=== PATIENT | female | born 1930 | race Caucasian/White ===

== ENCOUNTER → 2016-11-16 | Outpatient (CLI) | payer MEDICARE ==
--- NOTE | 2016-11-17 08:10 | BD ---
EXAMINATION TYPE: MG DEXA axial skeleton. DATE OF EXAM: 11/16/2016 10:11 AM COMPARISON: 2014 CLINICAL HISTORY: post menopausal Height: 5'4 Weight: 172 FRAX RISK QUESTIONS: Alcohol (3 or more units per day): no Family History (Parent hip fracture): no Glucocorticoids (More than 3mos): no (Ex: prednisone, prednisolone, methylprednisolone, dexamethasone, and hydrocortisone). History of Fracture in Adulthood: no Secondary Osteoporosis: 1. Type 1 Diabetes: no 2. Hyperthyroidism: no 3. Menopause before 45: no 4. Malnutrition: no 5. Chronic liver disease: no Rheumatoid Arthritis: no Current Tobacco Use: no RISK FACTORS HISTORY OF: Active: Diet low in dairy products/other sources of calcium: Postmenopausal woman: MEDICATIONS: Additional Medications: blood pressure , copd Additional History: EXAM MEASUREMENTS: Bone mineral densitometry was performed using the [employer] System. Bone mineral density as measured about the Lumbar spine is: ----- L1-L4(G/cm2): 1.147 T Score Values are as follows: ----- L2: -0.3 ----- L3: -0.4 ----- L4: 0.7 ----- L1-L4: -0.3 Bone mineral density has: Decreased -1.2% since study of: 11/15/2014 Bone mineral density about the R hip (g/cm2): 0.888 Bone mineral density about the L hip (g/cm2): 0.817 T Score values are as follows: -----R Neck: -1.2 -----L Neck: -1.6 -----R Total: -0.8 -----L Total: -0.8 Bone mineral density has: Decreased -0.3% since study of: 11/15/2014 IMPRESSION: Osteopenia (T Score between -2.5 and -1 as noted by T score values : [place] Hips There is slightly increased risk of fracture and the patient may be considered for treatment. Re-Screen 2-5 years. NOTE: T-SCORE=SD OF THE YOUNG ADULT MEAN.
== END | disposition home or self-care (01) ==
LOC: RADBDWWP 09:53
PROVIDERS: ATTEND Family Medicine
DX: M85.852 Other specified disorders of bone density and structure, left thigh (principal); M85.851 Other specified disorders of bone density and structure, right thigh; Z78.0 Asymptomatic menopausal state
CPT/HCPCS: 77080

== ENCOUNTER → 2017-01-17 | Outpatient (CLI) | payer MEDICARE ==
--- NOTE | 2017-01-18 13:25 | MM ---
Reason for exam: screening (asymptomatic). Last mammogram was performed 1 year and 1 month ago. History: Patient is postmenopausal. Benign excisional biopsy of the left breast. Physical Findings: A clinical breast exam by your physician is recommended on an annual basis and results should be correlated with mammographic findings. MG 3D Screening Mammo W/Cad Bilateral CC and MLO view(s) were taken. Prior study comparison: December 10, 2015, bilateral MG 3d screening mammo w/cad. November 15, 2014, bilateral MG screening mammo w CAD. There are scattered fibroglandular densities. There is no discrete abnormality. No significant changes when compared with prior studies. ASSESSMENT: Negative, BI-RAD 1 RECOMMENDATION: Routine screening mammogram of both breasts in 1 year.
== END | disposition home or self-care (01) ==
LOC: RADMAMWWP 09:45
PROVIDERS: ATTEND Family Medicine
DX: Z12.31 Encounter for screening mammogram for malignant neoplasm of breast (principal)
CPT/HCPCS: 77063; G0202

== ENCOUNTER 2017-04-22 17:04 | Emergency (ER) | payer MEDICARE ==
[2017-04-22] MEDS ORDERED: SODIUM CHLORIDE 0.9% 1,000 ML IV STA (17:16)
--- NOTE | 2017-04-22 17:44 | ED ---
General Adult HPI - General Chief complaint: Dizziness Stated complaint: weakness Time Seen by Provider: 04/22/17 17:14 Source: patient, RN notes reviewed, old records reviewed Mode of arrival: wheelchair Limitations: no limitations - History of Present Illness Initial comments: This is an 86-year-old female to the ER for evaluation of the room spinning, vertigo. Symptoms into today. No significant nausea vomiting no history of stroke or chest pain, no history of heart attack. Patient does have high blood pressure across her. Nonsmoker. No recent travel history no sick Takes no trauma. Patient currently being treated for bronchitis - Related Data Home Medications Medication Instructions Recorded Confirmed Aspirin 81 mg PO DAILY 01/18/15 04/22/17 Cholecalciferol [Vitamin D3] 200 unit PO DAILY@1200 01/18/15 04/22/17 Metoprolol Tartrate [Lopressor] 100 mg PO DAILY 01/18/15 04/22/17 Tiotropium 18 Mcg/Puff [Spiriva] 1 cap INHALATION RT-DAILY 01/18/15 04/22/17 Vit C/E/Zn/Coppr/Lutein/Zeaxan 1 cap PO W/SUPPER 01/18/15 04/22/17 [Preservision Areds 2 Softgel] amLODIPine BESYLATE/BENAZEPRIL 1 cap PO DAILY 01/18/15 04/22/17 [Lotrel 10-40 mg Capsule] Albuterol Sulfate [Proair Hfa] 1 - 2 puff INHALATION RT-Q6H PRN 03/21/16 Vitamin E 1,000 unit PO DAILY 03/22/16 04/22/17 Azithromycin [Zithromax] 500 mg PO DAILY 04/22/17 04/22/17 predniSONE See Taper PO BID 04/22/17 04/22/17 Allergies Allergy/AdvReac Type Severity Reaction Status Date / Time shellfish derived [Shellfish] Allergy Unknown Verified 04/22/17 17:46 Sulfa (Sulfonamide Allergy Rash/Hives Verified 04/22/17 17:45 Antibiotics) Review of Systems ROS Statement: Those systems with pertinent positive or pertinent negative responses have been documented in the HPI. ROS Other: All systems not noted in ROS Statement are negative. Past Medical History Past Medical History: COPD, Hypertension History of Any Multi-Drug Resistant Organisms: None Reported Past Surgical History: Hernia Repair Past Anesthesia/Blood Transfusion Reactions: No Reported Reaction Past Psychological History: No Psychological Hx Reported Smoking Status: Former smoker Past Alcohol Use History: Occasional Past Drug Use History: None Reported - Past Family History Father Additional Family Medical History / Comment(s): heart issues Mother Family Medical History: Cancer Additional Family Medical History / Comment(s): Pancreatic CA General Exam - General Exam Comments Initial Comments: NIH of 0, finger-nose and heel costa are negative Limitations: no limitations General appearance: alert, in no apparent distress Head exam: Present: atraumatic, normocephalic, normal inspection Eye exam: Present: normal appearance, PERRL, EOMI. Absent: scleral icterus, conjunctival injection, periorbital swelling ENT exam: Present: normal exam, mucous membranes moist Neck exam: Present: normal inspection. Absent: tenderness, meningismus, lymphadenopathy Respiratory exam: Present: normal lung sounds bilaterally. Absent: respiratory distress, wheezes, rales, rhonchi, stridor Cardiovascular Exam: Present: regular rate, normal rhythm, normal heart sounds. Absent: systolic murmur, diastolic murmur, rubs, gallop, clicks GI/Abdominal exam: Present: soft, normal bowel sounds. Absent: distended, tenderness, guarding, rebound, rigid Extremities exam: Present: normal inspection, full ROM, normal capillary refill. Absent: tenderness, pedal edema, joint swelling, calf tenderness Back exam: Present: normal inspection Neurological exam: Present: alert, oriented X3, CN II-XII intact Psychiatric exam: Present: normal affect, normal mood Skin exam: Present: warm, dry, intact, normal color. Absent: rash Course Vital Signs 04/22/17 04/22/17 17:05 18:14 Temperature 97.9 F Pulse Rate 70 65 Respiratory 20 16 Rate Blood Pressure 152/103 165/75 O2 Sat by Pulse 96 97 Oximetry - Reevaluation(s) Reevaluation #1: 04/22/17 18:25 Patient is able to ambulate and stand without difficulty EKG Findings - EKG Comments: EKG Findings:: EKG shows normal sinus rhythm rate of 70, IA 192, QRS 86, QTC 434 Medical Decision Making - Medical Decision Making 86 female in the ER with vertiginous symptoms, CT is negative. Patient is able to ambulate without ataxia. Patient will be discharged home to continue outpatient treatment for bronchitis - Lab Data Result diagrams: 04/22/17 17:23 04/22/17 17:23 Lab Results 04/22/17 04/22/17 04/22/17 Range/Units 17:23 17:23 17:23 WBC 10.0 (3.8-10.6) k/uL RBC 5.18 (3.80-5.40) m/uL Hgb 15.4 (11.4-16.0) gm/dL Hct 46.1 H (34.0-46.0) % MCV 89.0 (80.0-100.0) fL MCH 29.7 (25.0-35.0) pg MCHC 33.4 (31.0-37.0) g/dL RDW 13.6 (11.5-15.5) % Plt Count 284 (150-450) k/uL Neutrophils % 80 % Lymphocytes % 15 % Monocytes % 4 % Eosinophils % 1 % Basophils % 0 % Neutrophils # 7.9 H (1.3-7.7) k/uL Lymphocytes # 1.5 (1.0-4.8) k/uL Monocytes # 0.4 (0-1.0) k/uL Eosinophils # 0.1 (0-0.7) k/uL Basophils # 0.0 (0-0.2) k/uL PT (9.0-12.0) sec INR (<1.2) APTT (22.0-30.0) sec Sodium 133 L (137-145) mmol/L Potassium 4.6 (3.5-5.1) mmol/L Chloride 100 (98-107) mmol/L Carbon Dioxide 24 (22-30) mmol/L Anion Gap 9 mmol/L BUN 25 H (7-17) mg/dL Creatinine 0.80 (0.52-1.04) mg/dL Est GFR (MDRD) Af Amer >60 (>60 ml/min/1.73 sqM) Est GFR (MDRD) Non-Af >60 (>60 ml/min/1.73 sqM) Glucose 112 H (74-99) mg/dL Plasma Lactic Acid Lion 1.3 (0.7-2.0) mmol/L Calcium 9.2 (8.4-10.2) mg/dL Phosphorus 3.6 (2.5-4.5) mg/dL Magnesium 2.3 (1.6-2.3) mg/dL Total Bilirubin 0.5 (0.2-1.3) mg/dL AST 17 (14-36) U/L ALT 24 (9-52) U/L Alkaline Phosphatase 70 (38-126) U/L Total Protein 6.9 (6.3-8.2) g/dL Albumin 4.2 (3.5-5.0) g/dL Urine Color Urine Appearance (Clear) Urine pH (5.0-8.0) Ur Specific [place] (1.001-1.035) Urine Protein (Negative) Urine Glucose (UA) (Negative) Urine Ketones (Negative) Urine Blood (Negative) Urine Nitrite (Negative) Urine Bilirubin (Negative) Urine Urobilinogen (<2.0) mg/dL Ur Leukocyte Esterase (Negative) 04/22/17 04/22/17 Range/Units 17:23 17:23 WBC (3.8-10.6) k/uL RBC (3.80-5.40) m/uL Hgb (11.4-16.0) gm/dL Hct (34.0-46.0) % MCV (80.0-100.0) fL MCH (25.0-35.0) pg MCHC (31.0-37.0) g/dL RDW (11.5-15.5) % Plt Count (150-450) k/uL Neutrophils % % Lymphocytes % % Monocytes % % Eosinophils % % Basophils % % Neutrophils # (1.3-7.7) k/uL Lymphocytes # (1.0-4.8) k/uL Monocytes # (0-1.0) k/uL Eosinophils # (0-0.7) k/uL Basophils # (0-0.2) k/uL PT 10.3 (9.0-12.0) sec INR 1.0 (<1.2) APTT 28.5 (22.0-30.0) sec Sodium (137-145) mmol/L Potassium (3.5-5.1) mmol/L Chloride (98-107) mmol/L Carbon Dioxide (22-30) mmol/L Anion Gap mmol/L BUN (7-17) mg/dL Creatinine (0.52-1.04) mg/dL Est GFR (MDRD) Af Amer (>60 ml/min/1.73 sqM) Est GFR (MDRD) Non-Af (>60 ml/min/1.73 sqM) Glucose (74-99) mg/dL Plasma Lactic Acid Lion (0.7-2.0) mmol/L Calcium (8.4-10.2) mg/dL Phosphorus (2.5-4.5) mg/dL Magnesium (1.6-2.3) mg/dL Total Bilirubin (0.2-1.3) mg/dL AST (14-36) U/L ALT (9-52) U/L Alkaline Phosphatase (38-126) U/L Total Protein (6.3-8.2) g/dL Albumin (3.5-5.0) g/dL Urine Color Yellow Urine Appearance Clear (Clear) Urine pH 6.0 (5.0-8.0) Ur Specific [place] 1.010 (1.001-1.035) Urine Protein Negative (Negative) Urine Glucose (UA) Negative (Negative) Urine Ketones Negative (Negative) Urine Blood Negative (Negative) Urine Nitrite Negative (Negative) Urine Bilirubin Negative (Negative) Urine Urobilinogen <2.0 (<2.0) mg/dL Ur Leukocyte Esterase Negative (Negative) - Radiology Data Radiology results: report reviewed (CT brain is negative for acute disease), image reviewed Disposition Clinical Impression: Benign paroxysmal positional vertigo Disposition: HOME SELF-CARE Condition: Good Instructions: Vertigo (ED) Referrals: Diego Soriano MD [Primary Care Provider] - 1-2 days
[2017-04-22 18:04] LABS: Basophils % (A) 0 %; CH 30.2; CHCM 34.1; Eosinophils # (A) 0.1 k/uL (0-0.7); Eosinophils % (A) 1 %; HCT 46.1 % (34.0-46.0); HDW 2.62; HGB 15.4 gm/dL (11.4-16.0); Luc # (Auto) 0.04; Luc % (Auto) 0; Lymphocytes # (A) 1.5 k/uL (1.0-4.8); Lymphocytes % (A) 15 %; MCH 29.7 pg (25.0-35.0); MCHC 33.4 g/dL (31.0-37.0); Mean Platelet Volume 6.3; Monocytes # (A) 0.4 k/uL (0-1.0); Monocytes % (A) 4 %; Neutrophils # (A) 7.9 k/uL (1.3-7.7); Neutrophils % (A) 80 %; RBC 5.18 m/uL (3.80-5.40); RDW 13.6 % (11.5-15.5); WBC (Perox) 9.68
[2017-04-22 18:05] LABS: Appearance,Urine Clear (Clear); Bilirubin,Urine Negative (Negative); Glucose,Urine (UA) Negative (Negative); Ketones,Urine Negative (Negative); Leukocyte Esterase,Urine Negative (Negative); Nitrite,Urine Negative (Negative); Protein,Urine Negative (Negative); UA Billing (MACRO vs. MICRO) CHEM; Urobilinogen,Urine <2.0 mg/dL (<2.0)
[2017-04-22 18:10] LABS: Partial Thromboplastin Time 28.5 sec (22.0-30.0); Prothrombin Time 10.3 sec (9.0-12.0)
[2017-04-22 18:11] LABS: ALT 24 U/L (9-52); AST 17 U/L (14-36); Alkaline Phosphatase 70 U/L (38-126); Anion Gap 9 mmol/L; Blood Urea Nitrogen 25 mg/dL (7-17); Calcium 9.2 mg/dL (8.4-10.2); Carbon Dioxide 24 mmol/L (22-30); Chloride 100 mmol/L (98-107); Glucose 112 mg/dL (74-99); Magnesium 2.3 mg/dL (1.6-2.3); Non-African American GFR(MDRD) >60 (>60 ml/min/1.73 sqM); Phosphorous 3.6 mg/dL (2.5-4.5); Potassium 4.6 mmol/L (3.5-5.1); Sodium 133 mmol/L (137-145); Total Bilirubin 0.5 mg/dL (0.2-1.3); Total Protein 6.9 g/dL (6.3-8.2)
[2017-04-22 18:21] LABS: Creatine Kinase 55 U/L (30-135)
[2017-04-22 18:34] LABS: Creatine Kinase MB 1.5 ng/mL (0.0-2.4); Troponin I <0.012 ng/mL (0.000-0.034)
--- NOTE | 2017-04-22 19:35 | CT ---
EXAMINATION TYPE: CT brain wo con DATE OF EXAM: 04/22/2017 COMPARISON: NONE HISTORY: Dizziness and weakness CT DLP: 1012.7 mGycm Automated exposure control for dose reduction was used. FINDINGS: There is cerebral cortical atrophy. There is patchy hypodensity in the periventricular white matter. There is no mass effect nor midline shift. There is no sign of intracranial hemorrhage. Calvarium is intact. IMPRESSION: CEREBRAL ATROPHY AND CHRONIC SMALL VESSEL ISCHEMIA. NO ACUTE INTRACRANIAL ABNORMALITY.
[2017-04-22 20:06] VITALS: BP 160/72; PULSE 66; RESP 18; TEMP 97
== END 2017-04-22 20:05 | disposition home or self-care (01) ==
LOC: EC 17:04
DX: H81.10 Benign paroxysmal vertigo, unspecified ear (principal); J44.9 Chronic obstructive pulmonary disease, unspecified; I10 Essential (primary) hypertension; Z87.891 Personal history of nicotine dependence; Z79.82 Long term (current) use of aspirin; Z79.899 Other long term (current) drug therapy; Z79.52 Long term (current) use of systemic steroids; Z88.2 Allergy status to sulfonamides; Z91.013 Allergy to seafood
CPT/HCPCS: 36415; 70450; 80053; 81003; 82550; 82553; 83605; 83735; 84100; 84443; 84484; 85025; 85610; 85730; 87086; 93005; 96360; 99285

== ENCOUNTER 2017-10-23 16:46 | Inpatient (IN) | payer MEDICARE ==
[2017-10-23] MEDS ORDERED: IPRATROPIUM-ALBUTEROL 3 ML NEB INHALATION STA (17:14)
--- NOTE | 2017-10-23 17:22 | ED ---
General Adult HPI - General Chief complaint: Shortness of Breath Stated complaint: Sob Time Seen by Provider: 10/23/17 16:50 Source: patient, RN notes reviewed Mode of arrival: wheelchair Limitations: no limitations - History of Present Illness Initial comments: This is an 87-year-old female presents emergency department with shortness of breath. Patient states she's been an ongoing sosa with shortness of breath. Patient states in the past she's been diagnosed with COPD as well as congestive heart failure. Patient states 2 weeks ago she came home from [place] and she continues to have shortness of breath. Patient states yesterday and today has gotten considerably worse and her fatigue is considerably worse. Patient denies any chest pain or palpitations. Patient denies any recent fevers chills or cough. Patient denies any lightheadedness dizziness or near syncopal episode. Patient denies any headache patient denies numbness or weakness patient denies any abdominal pain. Patient denies any nausea vomiting diarrhea. Patient denies any calf pain or leg swelling. - Related Data Home Medications Medication Instructions Recorded Confirmed Aspirin 81 mg PO DAILY 01/18/15 10/23/17 Cholecalciferol [Vitamin D3] 200 unit PO DAILY@1200 01/18/15 10/23/17 Vit C/E/Zn/Coppr/Lutein/Zeaxan 1 cap PO BID 01/18/15 10/23/17 [Preservision Areds 2 Softgel] Albuterol Sulfate [Proair Hfa] 1 - 2 puff INHALATION RT-Q4H PRN 03/21/16 Budesonide/Formoterol Fumarate 2 puff INHALATION RT-BID 08/07/17 10/23/17 [Symbicort 160-4.5 Mcg Inhaler] Ipratropium-Albuterol Nebulize 3 ml INHALATION RT-QID 08/07/17 10/23/17 [Duoneb 0.5 mg-3 mg/3 ml Soln] Digoxin [Lanoxin] 125 mcg PO DIRECTED 10/23/17 10/23/17 Famotidine [Pepcid] 20 mg PO BID 10/23/17 10/23/17 Levofloxacin [Levaquin] 750 mg PO SUTUTH 10/23/17 10/23/17 Lisinopril 20 mg PO DAILY 10/23/17 10/23/17 Metoprolol Tartrate [Lopressor] 25 mg PO BID 10/23/17 10/23/17 Potassium Chloride [Klor-Con 10] 10 meq PO BID 10/23/17 10/23/17 Previous Rx's Medication Instructions Recorded Apixaban [Eliquis] 2.5 mg PO BID tablet 08/11/17 Diltiazem Cd [Cardizem CD] 240 mg PO DAILY #30 cap.er.24h 08/11/17 Furosemide [Lasix] 20 mg PO DAILY #30 tab 08/11/17 Allergies Allergy/AdvReac Type Severity Reaction Status Date / Time shellfish derived [Shellfish] Allergy Unknown Verified 10/23/17 18:28 Sulfa (Sulfonamide Allergy Rash/Hives Verified 10/23/17 18:28 Antibiotics) Review of Systems ROS Statement: Those systems with pertinent positive or pertinent negative responses have been documented in the HPI. ROS Other: All systems not noted in ROS Statement are negative. Past Medical History Past Medical History: Atrial Fibrillation, COPD, Hypertension History of Any Multi-Drug Resistant Organisms: None Reported Past Surgical History: Hernia Repair Past Anesthesia/Blood Transfusion Reactions: No Reported Reaction Past Psychological History: No Psychological Hx Reported Smoking Status: Former smoker Past Alcohol Use History: Occasional Past Drug Use History: None Reported - Past Family History Father Additional Family Medical History / Comment(s): heart issues Mother Family Medical History: Cancer Additional Family Medical History / Comment(s): Pancreatic CA General Exam - General Exam Comments Initial Comments: GENERAL: Patient is well-developed and well-nourished. Patient is nontoxic and well- hydrated and is in mild distress. ENT: Neck is soft and supple. No significant lymphadenopathy is noted. Oropharynx is clear. Moist mucous membranes. Neck has full range of motion without eliciting any pain. EYES: The sclera were anicteric and conjunctiva were pink and moist. Extraocular movements were intact and pupils were equal round and reactive to light. Eyelids were unremarkable. PULMONARpatient has some crackles bilateral bases and some slight expiratory wheezing on the left. CARDIOVASCULAR: There is a regular rate and rhythm without any murmurs gallops or rubs. ABDOMEN: Soft and nontender with normal bowel sounds. No palpable organomegaly was noted. There is no palpable pulsatile mass. SKIN: Skin is clear with no lesions or rashes and otherwise unremarkable. NEUROLOGIC: Patient is alert and oriented x3. Cranial nerves II through XII are grossly intact. Motor and sensory are also intact. Normal speech, volume and content. Symmetrical smile. MUSCULOSKELETAL: Normal extremities with adequate strength and full range of motion. No lower extremity swelling or edema. No calf tenderness. LYMPHATICS: No significant lymphadenopathy is noted PSYCHIATRIC: Normal psychiatric evaluation. Normal interpersonal interactions appears functionally intact in deals appropriately with others. No signs of depression. No signs of anxiety. Limitations: no limitations Course Vital Signs 10/23/17 10/23/17 10/23/17 16:50 17:08 17:30 Temperature 98.2 F Pulse Rate 72 66 Respiratory 20 20 20 Rate Blood Pressure 147/66 126/58 O2 Sat by Pulse 92 L 98 Oximetry 10/23/17 10/23/17 10/23/17 17:39 17:46 18:48 Temperature Pulse Rate 62 63 65 Respiratory 20 18 22 Rate Blood Pressure 115/56 O2 Sat by Pulse 98 Oximetry Medical Decision Making - Medical Decision Making EKG shows normal sinus rhythm at 64 bpm GA interval is 192 QRS is 80 QT interval 426 QTC is 439. Patient's EKG shows no ST segment elevation or depression or T wave abnormalities are noted. Chest x-ray shows no acute abnormality. Patient received albuterol treatment and steroids but was unable to even get out of bed before being winded. Patient states she didn't feel as though she could go home at this time. I spoke with Dr. Hughes he agreed to admit the patient admitted the patient I wrote admitting orders. I consult pulmonology and I continued breathing treatments and steroids on the floor. - Lab Data Result diagrams: 10/23/17 17:05 10/23/17 17:05 Lab Results 10/23/17 10/23/17 10/23/17 Range/Units 17:05 17:05 17:05 WBC 8.4 (3.8-10.6) k/uL RBC 5.06 (3.80-5.40) m/uL Hgb 14.6 (11.4-16.0) gm/dL Hct 42.9 (34.0-46.0) % MCV 84.8 (80.0-100.0) fL MCH 28.8 (25.0-35.0) pg MCHC 33.9 (31.0-37.0) g/dL RDW 14.4 (11.5-15.5) % Plt Count 252 (150-450) k/uL Neutrophils % 50 % Lymphocytes % 38 % Monocytes % 7 % Eosinophils % 4 % Basophils % 0 % Neutrophils # 4.2 (1.3-7.7) k/uL Lymphocytes # 3.2 (1.0-4.8) k/uL Monocytes # 0.6 (0-1.0) k/uL Eosinophils # 0.3 (0-0.7) k/uL Basophils # 0.0 (0-0.2) k/uL PT (9.0-12.0) sec INR (<1.2) APTT (22.0-30.0) sec D-Dimer (<0.60) mg/L FEU Sodium 138 (137-145) mmol/L Potassium 3.9 (3.5-5.1) mmol/L Chloride 101 (98-107) mmol/L Carbon Dioxide 23 (22-30) mmol/L Anion Gap 14 mmol/L BUN 8 (7-17) mg/dL Creatinine 0.81 (0.52-1.04) mg/dL Est GFR (CKD-EPI)AfAm 77 (>60 ml/min/1.73 sqM) Est GFR (CKD-EPI)NonAf 66 (>60 ml/min/1.73 sqM) Glucose 133 H (74-99) mg/dL Calcium 8.9 (8.4-10.2) mg/dL Magnesium 1.8 (1.6-2.3) mg/dL Total Bilirubin 0.6 (0.2-1.3) mg/dL AST 30 (14-36) U/L ALT 54 H (9-52) U/L Alkaline Phosphatase 57 (38-126) U/L Total Creatine Kinase 45 (30-135) U/L CK-MB (CK-2) 1.1 (0.0-2.4) ng/mL CK-MB (CK-2) Rel Index 2.4 Troponin I <0.012 (0.000-0.034) ng/mL NT-Pro-B Natriuret Pep pg/mL Total Protein 5.6 L (6.3-8.2) g/dL Albumin 3.7 (3.5-5.0) g/dL 10/23/17 10/23/17 10/23/17 Range/Units 17:05 17:05 17:05 WBC (3.8-10.6) k/uL RBC (3.80-5.40) m/uL Hgb (11.4-16.0) gm/dL Hct (34.0-46.0) % MCV (80.0-100.0) fL MCH (25.0-35.0) pg MCHC (31.0-37.0) g/dL RDW (11.5-15.5) % Plt Count (150-450) k/uL Neutrophils % % Lymphocytes % % Monocytes % % Eosinophils % % Basophils % % Neutrophils # (1.3-7.7) k/uL Lymphocytes # (1.0-4.8) k/uL Monocytes # (0-1.0) k/uL Eosinophils # (0-0.7) k/uL Basophils # (0-0.2) k/uL PT 10.4 (9.0-12.0) sec INR 1.1 (<1.2) APTT 26.9 (22.0-30.0) sec D-Dimer 0.38 (<0.60) mg/L FEU Sodium (137-145) mmol/L Potassium (3.5-5.1) mmol/L Chloride (98-107) mmol/L Carbon Dioxide (22-30) mmol/L Anion Gap mmol/L BUN (7-17) mg/dL Creatinine (0.52-1.04) mg/dL Est GFR (CKD-EPI)AfAm (>60 ml/min/1.73 sqM) Est GFR (CKD-EPI)NonAf (>60 ml/min/1.73 sqM) Glucose (74-99) mg/dL Calcium (8.4-10.2) mg/dL Magnesium (1.6-2.3) mg/dL Total Bilirubin (0.2-1.3) mg/dL AST (14-36) U/L ALT (9-52) U/L Alkaline Phosphatase (38-126) U/L Total Creatine Kinase (30-135) U/L CK-MB (CK-2) (0.0-2.4) ng/mL CK-MB (CK-2) Rel Index Troponin I (0.000-0.034) ng/mL NT-Pro-B Natriuret Pep 1070 pg/mL Total Protein (6.3-8.2) g/dL Albumin (3.5-5.0) g/dL Disposition Clinical Impression: Acute exacerbation of chronic obstructive airways disease Disposition: ADMITTED IP TO THIS HOSP Is patient prescribed a controlled substance at d/c from ED?: No Referrals: Diego Soriano MD [Primary Care Provider] - 1-2 days Time of Disposition: 18:46
--- NOTE | 2017-10-23 17:29 | XR ---
EXAMINATION TYPE: XR chest 2V DATE OF EXAM: 10/23/2017 COMPARISON: August 07, 2017 HISTORY: Shortness of breath TECHNIQUE: Frontal and lateral views of the chest are obtained. FINDINGS: Scattered senescent parenchymal changes noted. Hyperinflation compatible with COPD. No evidence for infiltrate. No evidence for atelectasis. Heart size is stable. Mediastinal structures are stable and grossly unremarkable. No evidence for hilar prominence. Degenerative changes dorsal spine. IMPRESSION: 1. No evidence for acute pulmonary disease.
[2017-10-23 17:40] LABS: Basophils % (A) 0 %; Eosinophils # (A) 0.3 k/uL (0-0.7); Eosinophils % (A) 4 %; HCT 42.9 % (34.0-46.0); HGB 14.6 gm/dL (11.4-16.0); Lymphocytes # (A) 3.2 k/uL (1.0-4.8); Lymphocytes % (A) 38 %; MCH 28.8 pg (25.0-35.0); MCHC 33.9 g/dL (31.0-37.0); MCV 84.8 fL (80.0-100.0); Monocytes # (A) 0.6 k/uL (0-1.0); Monocytes % (A) 7 %; Neutrophils # (A) 4.2 k/uL (1.3-7.7); Neutrophils % (A) 50 %; Platelet Count 252 k/uL (150-450); RBC 5.06 m/uL (3.80-5.40); RDW 14.4 % (11.5-15.5); WBC 8.4 k/uL (3.8-10.6)
[2017-10-23 17:50] LABS: INR 1.1 (<1.2); Partial Thromboplastin Time 26.9 sec (22.0-30.0); Prothrombin Time 10.4 sec (9.0-12.0)
[2017-10-23 17:52] LABS: Albumin 3.7 g/dL (3.5-5.0); Calcium 8.9 mg/dL (8.4-10.2); Magnesium 1.8 mg/dL (1.6-2.3); Potassium 3.9 mmol/L (3.5-5.1); Total Bilirubin 0.6 mg/dL (0.2-1.3); Total Protein 5.6 g/dL (6.3-8.2)
[2017-10-23 18:03] LABS: Creatine Kinase 45 U/L (30-135)
[2017-10-23 18:15] LABS: Creatine Kinase MB 1.1 ng/mL (0.0-2.4); Troponin I <0.012 ng/mL (0.000-0.034)
[2017-10-23] MEDS ORDERED: methylPREDNISolone SOD SUCCI 125 MG/2 ML VIAL IV STA (18:41)
[2017-10-23] MEDS: IPRATROPIUM-ALBUTEROL 3 ML NEB INHALATION SCH (21:11)
[2017-10-23 22:12] VITALS: BMI 27.1
[2017-10-23] MEDS: FAMOTIDINE 20 MG TAB PO SCH (23:22)
[2017-10-23] MEDS: POTASSIUM CHLORIDE ER 10 MEQ TAB.ER.PRT PO SCH (23:23)
[2017-10-23] MEDS: METOPROLOL TARTRATE 25 MG TAB PO SCH (23:23)
[2017-10-23] MEDS: APIXABAN 2.5 MG TABLET PO SCH (23:23)
[2017-10-23] MEDS: methylPREDNISolone SOD SUCCI 125 MG/2 ML VIAL IV SCH (23:27)
[2017-10-24] MEDS: methylPREDNISolone SOD SUCCI 125 MG/2 ML VIAL IV SCH ×3 (05:47→18:16)
[2017-10-24 06:46] LABS: Glucose,Whole Blood 190 mg/dL (75-99)
[2017-10-24] MEDS: APIXABAN 2.5 MG TABLET PO SCH ×2 (08:40→20:56)
[2017-10-24] MEDS: METOPROLOL TARTRATE 25 MG TAB PO SCH ×2 (08:40→20:58)
[2017-10-24] MEDS: FAMOTIDINE 20 MG TAB PO SCH (08:40)
[2017-10-24] MEDS: POTASSIUM CHLORIDE ER 10 MEQ TAB.ER.PRT PO SCH ×2 (08:40→20:59)
[2017-10-24] MEDS: IPRATROPIUM-ALBUTEROL 3 ML NEB INHALATION SCH ×6 (08:52→19:35)
[2017-10-24 11:55] LABS: Glucose,Whole Blood 227 mg/dL (75-99)
[2017-10-24] MEDS: INSULIN ASPART 100 UNIT/ML 1 ML 10 ML VIAL SQ SCH ×3 (12:17→20:59)
[2017-10-24] MEDS ORDERED: ALPRAZolam 0.25 MG TAB PO PRN (12:38)
[2017-10-24] MEDS ORDERED: DIGOXIN 125 MCG TAB PO SCH (12:45)
[2017-10-24] MEDS: cefTRIAXone IN SWFI 1,000 MG/10 ML SYRINGE IVP SCH (13:05)
[2017-10-24] MEDS: LISINOPRIL 20 MG TAB PO SCH (13:05)
[2017-10-24] MEDS: FAMOTIDINE 20 MG/2 ML VIAL IV SCH (13:06)
--- NOTE | 2017-10-24 14:38 | HP ---
HISTORY AND PHYSICAL I am covering for Dr. Diego Soriano. CHIEF COMPLAINT: Shortness of breath. HISTORY OF PRESENT ILLNESS: This is an 87-year-old woman with a past medical history of multiple medical problems including history of atrial ablation, COPD, hypertension and a hernia repair being followed by Dr. Diego Soriano in the outpatient setting. She was admitted with shortness of breath. The patient is complaining of being extremely tired and weak. Patient was in [place], after coming back from [place], patient has noted shortness of breath, even on walking short distances and the patient was monitored closely and in the emergency room, the patient underwent a chest x-ray and chest x-ray showed no evidence of acute cardiopulmonary disease and the troponins were found to be 1070. There is no history of fever, rigors. No history of headache, loss of consciousness, seizures. PAST MEDICAL HISTORY: Atrial fibrillation, COPD, hypertension, history of nicotine dependence. MEDICATIONS PRIOR TO ADMISSION: 1. Vitamin C, zinc, copper, lutein 1 p.o. b.i.d. 2. Klor-Con 10 mEq p.o. b.i.d. 3. Lopressor 25 mg b.i.d. 4. Lisinopril 20 mg p.o. daily. 5. Levaquin 750 p.o. Tuesday, , Tuesday. 6. DuoNeb q.i.d. 7. Lasix 20 mg daily. 8. Pepcid 20 mg b.i.d. 9. Cardizem CD 240 mg. 10.Lanoxin 125 mcg. 11.Vitamin D3 two thousand daily. 12.Symbicort 160/4.5 two puffs b.i.d. 13.Aspirin 81 mg. 14.Eliquis 2.5 mg p.o. b.i.d. 15.Albuterol 1 puff q.4 p.r.n. ALLERGIES: SULFA. FAMILY HISTORY: History of cancer and heart issues. SOCIAL HISTORY: Previous history of smoking. No history of alcohol intake. REVIEW OF SYSTEMS: ENT: No diminished hearing or vision. CARDIOVASCULAR: As mentioned earlier. RESPIRATORY: As mentioned earlier. GI: No nausea. : No dysuria. NERVOUS SYSTEM: No numbness, weakness. ALLERGY/IMMUNOLOGY: No asthma or hayfever. MUSCULOSKELETAL: As mentioned earlier. HEMATOLOGY/ONCOLOGY: No history of anemia. ENDOCRINE: No history of diabetes or hypothyroidism. CONSTITUTIONAL: As mentioned earlier. DERMATOLOGY: Negative. PSYCHIATRY: As mentioned earlier. PHYSICAL EXAMINATION: Patient is alert and oriented x3. Pulse is 69, blood pressure 138/56, respiration 18, temperature 97.7, pulse ox 98% on 2 L. HEENT: Conjunctivae normal, oral mucosa moist. Neck is no jugular venous distention, no lymph node enlargement. CARDIOVASCULAR: S1, S2, muffled. RESPIRATION: Breath sounds diminished at the bases, a few scattered rhonchi, no crackles. ABDOMEN: Soft, nontender. No mass palpable. LEGS: No edema, no swelling. NERVOUS SYSTEM: Higher functions as mentioned earlier. Moves all four limbs. No focal deficits LYMPHATICS: No lymph node enlargement. SKIN: No ulcer, rash or bleeding. LABS: CBC within normal limits. Glucose 133, 190. ASSESSMENT: 1. Chronic obstructive pulmonary disease exacerbation with acute purulent tracheobronchitis. 2. History of atrial fibrillation. 3. History of hypertension. 4. History of hernia repair. 5. Remote history of nicotine dependence. 6. Increased ALT. RECOMMENDATIONS AND DISCUSSION: In this 87-year-old woman who presented with multiple completes medial issues, will monitor the patient closely, continue with the current management and symptomatic treatment. Will initiate home medications, bronchodilators, empiric antibiotics, steroids. Consult Dr. Plasencia and Dr. Pascual. Guarded prognosis because of multiple complex medical problems. Further recommendations to follow. A copy of this will be forwarded to Dr. Soriano who is the primary physician. MMODL / IJN: [id number] /
[2017-10-24] MEDS ORDERED: RX INFO: IV CONTRAST WAS GIVEN 1 EACH MISC MISCELLANE PRN (16:33)
[2017-10-24 17:15] LABS: Appearance,Urine Clear (Clear); Bilirubin,Urine Negative (Negative); Blood,Urine Negative (Negative); Color,Urine Yellow; Glucose,Urine (UA) 2+ (Negative); Hyaline Casts,Urine 12 /lpf (0-2); Ketones,Urine Trace (Negative); Leukocyte Esterase,Urine Large (Negative); Mucus,Urine Rare /hpf; Nitrite,Urine Negative (Negative); Protein,Urine Trace (Negative); RBC,Urine 2 /hpf (0-5); Specific Gravity,Urine 1.019 (1.001-1.035); Squamous Epithelial Cell,Urine 3 /hpf (0-4); Urobilinogen,Urine <2.0 mg/dL (<2.0); WBC,Urine 13 /hpf (0-5)
--- NOTE | 2017-10-24 17:37 | P.CNPUL ---
History of Present Illness Consult date: 10/24/17 Requesting physician: Jayden Crooks Reason for consult: dyspnea, other Chief complaint: Increasing shortness of breath, weakness, fatigue, exertional dyspnea History of present illness: Mrs. Perez is a 87-year-old white female patient of Dr. Soriano, also sees Dr. St in the pulmonary office for her history of moderately severe COPD, presented to the hospital on 10/23/2017 at 1717 with complaints of worsening shortness of breath since Tuesday. Patient denies any fever or chills, she describes progressive weakness, fatigue, severe limitation of exercise capacity , patient describes gasping for air with any exertion, even walking in the room. She denied any chest pain, denied any palpitations, denied any worsening swelling in her bilateral lower extremities. Patient has a history of atrial fibrillation, and is currently on Eliquis for chronic anticoagulation. Patient is not on any oxygen at home, and most recent PFT from 08/15/2017 showed FEV1 of 57%, consistent with moderately severe COPD, Gold stage II. Patient had a recent hospitalization in August in [place], where she was intubated and was requiring mechanical ventilation for 3 days for an episode of acute congestive heart failure. Other history includes benign essential hypertension, recent episode of left lower lobe pneumonia and A. fib RVR, patient was hospitalized the beginning of August. Patient is now on diltiazem, digoxin, metoprolol. Patient was previously on Symbicort which was discontinued after her most recent hospitalization. She was seen in follow-up in the office on 10/12/2017 and was doing well, although complaining of some exertional dyspnea. She also follows with Dr. Means, and her most recent echocardiogram from 2017 showed left ventricular systolic function with mild impairment with an EF between 45-50%. Mild aortic valve sclerosis, and mild mitral and tricuspid regurgitation. Right ventricular systolic pressure was 46.5 mmHg, consistent with mild to moderate pulmonary hypertension. 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 Chest x- ray showed no evidence for acute pulmonary disease. Patient has been afebrile, she remains in sinus rhythm with a controlled rate. Her lab work was negative for any evidence of leukocytosis, the PVC was 8.4, d-dimer was negative for 0.38 , electrolytes and renal profile were within normal limits, troponins and cardiac enzymes were negative 1, proBNP was within normal limits at 1070. Patient was started on IV steroids, nebulized treatments, empiric antibiotics and admitted for further management. Review of Systems All systems: negative Constitutional: Denies chills, Denies fever Eyes: denies blurred vision, denies pain Ears, nose, mouth and throat: Denies headache, Denies sore throat Cardiovascular: Reports decreased exercise tolerance, Reports dyspnea on exertion, Denies chest pain, Denies shortness of breath Respiratory: Reports dyspnea, Reports respiratory infections, Denies cough Gastrointestinal: Denies abdominal pain, Denies diarrhea, Denies nausea, Denies vomiting Genitourinary: Denies dysuria, Denies hematuria Musculoskeletal: Denies myalgias Integumentary: Denies pruritus, Denies rash Neurological: Denies numbness, Denies weakness Psychiatric: Denies anxiety, Denies depression Endocrine: Denies fatigue, Denies weight change Past Medical History Past Medical History: Atrial Fibrillation, COPD, Hypertension History of Any Multi-Drug Resistant Organisms: None Reported Past Surgical History: Hernia Repair Past Anesthesia/Blood Transfusion Reactions: No Reported Reaction Past Psychological History: No Psychological Hx Reported Smoking Status: Former smoker Past Alcohol Use History: Occasional Past Drug Use History: None Reported - Past Family History Father Additional Family Medical History / Comment(s): heart issues Mother Family Medical History: Cancer Additional Family Medical History / Comment(s): Pancreatic CA Medications and Allergies Home Medications Medication Instructions Recorded Confirmed Type Aspirin 81 mg PO DAILY 01/18/15 10/23/17 History Cholecalciferol [Vitamin D3] 200 unit PO DAILY@1200 01/18/15 10/23/17 History Vit C/E/Zn/Coppr/Lutein/Zeaxan 1 cap PO BID 01/18/15 10/23/17 History [Preservision Areds 2 Softgel] Albuterol Sulfate [Proair Hfa] 1 - 2 puff INHALATION RT-Q4H PRN 03/21/16 History Budesonide/Formoterol Fumarate 2 puff INHALATION RT-BID 08/07/17 10/23/17 History [Symbicort 160-4.5 Mcg Inhaler] Ipratropium-Albuterol Nebulize 3 ml INHALATION RT-QID 08/07/17 10/23/17 History [Duoneb 0.5 mg-3 mg/3 ml Soln] Apixaban [Eliquis] 2.5 mg PO BID tablet 08/11/17 10/23/17 Rx Diltiazem Cd [Cardizem CD] 240 mg PO DAILY #30 cap.er.24h 08/11/17 10/23/17 Rx Furosemide [Lasix] 20 mg PO DAILY #30 tab 08/11/17 10/23/17 Rx Digoxin [Lanoxin] 125 mcg PO DIRECTED 10/23/17 10/23/17 History Famotidine [Pepcid] 20 mg PO BID 10/23/17 10/23/17 History Levofloxacin [Levaquin] 750 mg PO SUTUTH 10/23/17 10/23/17 History Lisinopril 20 mg PO DAILY 10/23/17 10/23/17 History Metoprolol Tartrate [Lopressor] 25 mg PO BID 10/23/17 10/23/17 History Potassium Chloride [Klor-Con 10] 10 meq PO BID 10/23/17 10/23/17 History Allergies Allergy/AdvReac Type Severity Reaction Status Date / Time shellfish derived [Shellfish] Allergy Unknown Verified 10/23/17 18:28 Sulfa (Sulfonamide Allergy Rash/Hives Verified 10/23/17 18:28 Antibiotics) Physical Exam Vitals: Vital Signs Temp Pulse Pulse Resp BP BP Pulse Ox 10/24/17 09:03 72 16 10/24/17 08:52 70 16 10/24/17 05:39 97.7 F 69 18 138/56 96 10/23/17 22:50 97.8 F 74 18 121/67 96 10/23/17 22:20 18 10/23/17 21:15 97.5 F L 66 18 159/73 96 10/23/17 20:28 97.4 F L 71 20 133/62 93 L 10/23/17 18:48 65 22 115/56 98 10/23/17 17:46 63 18 10/23/17 17:39 62 20 10/23/17 17:30 66 20 126/58 98 10/23/17 17:08 20 10/23/17 16:50 98.2 F 72 20 147/66 92 L Intake and Output 10/23/17 10/24/17 10/24/17 22:59 06:59 14:59 Intake Total 400 Balance 400 Intake: Oral 400 Other: # Voids 2 Weight 74 kg 74 kg GENERAL EXAM: Alert, pleasant, 87-year-old white female comfortable in no apparent distress. HEAD: Normocephalic/atraumatic. EYES: Normal reaction of pupils, equal size. Conjunctiva pink, sclera white. NOSE: Clear with pink turbinates. THROAT: No erythema or exudates. NECK: No masses, no JVD, no thyroid enlargement, no adenopathy. CHEST: No chest wall deformity. Symmetrical expansion. LUNGS: Equal air entry with bibasilar crackles, but no wheezes or rhonchi noted CVS: Regular rate and rhythm, normal S1 and S2, no gallops, no murmurs, no rubs ABDOMEN: Soft, nontender. No hepatosplenomegaly, normal bowel sounds, no guarding or rigidity. EXTREMITIES: No clubbing, no edema, no cyanosis, 2+ pulses and upper and lower extremities. MUSCULOSKELETAL: Muscle strength and tone normal. SPINE: No scoliosis or deformity SKIN: No rashes CENTRAL NERVOUS SYSTEM: Alert and oriented -3. No focal deficits, tone is normal in all 4 extremities. PSYCHIATRIC: Alert and oriented -3. Appropriate affect. Intact judgment and insight. Results - Laboratory Findings CBC and BMP: 10/23/17 17:05 10/23/17 17:05 PT/INR, D-dimer PT 10.4 sec (9.0-12.0) 10/23/17 17:05 INR 1.1 (<1.2) 10/23/17 17:05 D-Dimer 0.38 mg/L FEU (<0.60) 10/23/17 17:05 Abnormal lab findings: Abnormal Labs 10/23/17 10/24/17 10/24/17 17:05 06:44 11:50 Glucose 133 H POC Glucose (mg/dL) 190 H 227 H ALT 54 H Total Protein 5.6 L - Diagnostic Findings Chest x-ray: report reviewed, image reviewed Additional studies: Twelve-lead EKG reviewed Assessment and Plan Plan: Assessment: #1. Progressive dyspnea, fatigue, limitation of exercise capacity under investigation #2. Moderately severe COPD, with a baseline FEV1 of 57% of predicted, Gold stage II #3. Chronic systolic congestive heart failure, most recent EF on 08/08/2017 45- 50%, and evidence of mild to moderate pulmonary hypertension with right ventricular systolic pressure of 46.5 mmHg #4. History of paroxysmal A. fib, on chronic anticoagulation with Eliquis, currently in sinus rhythm #5. Recent hospitalization for acute systolic congestive heart failure in [place], with acute respiratory failure requiring intubation and mechanical ventilation in August 2017 #6. Left lower lung pneumonia in August 2017 #7. Hypertension #8. Nicotine dependence, in remission, quit 8 years ago, prior to that smoked for over 50 years, less than a pack a day Plan: Continue current plan of treatment, continue bronchodilators, IV steroids, with empiric antibiotics in the form of Rocephin. Patient's chest x-ray has been reviewed, and is negative for any acute pulmonary findings. Patient has no wheezing, no chest congestion, no sputum production. Her COPD seems to be stable. We'll obtain CTA chest to rule out acute pulmonary embolism, and repeat echocardiogram to reevaluate her LV function. I performed a history & physical examination of the patient and discussed their management with my nurse practitioner, Kenna Ervin. I reviewed the nurse practitioner's note and agree with the documented findings and plan of care. Lung sounds are positive bibasilar crackles. The findings and the impression was discussed with the patient. I attest to the documentation by the nurse practitioner. Time with Patient: Greater than 30
[2017-10-24 17:56] LABS: Glucose,Whole Blood 234 mg/dL (75-99)
--- NOTE | 2017-10-24 18:20 | CT ---
EXAMINATION TYPE: CT chest angio for PE DATE OF EXAM: 10/24/2017 COMPARISON: 11/15/2011 HISTORY: Difficulty breathing. CT DLP: 360.4 mGycm Automated exposure control for dose reduction was used. CONTRAST: CT Chest for pulmonary embolism performed with with IV Contrast, patient injected with 100 mL of Isov ue 370. FINDINGS: There are 3-D post processed images. There is coarse linear density in the lingula left upper lobe and also in the right middle lobe consi stent with scarring and atelectasis. There are small subpleural reticular infiltrates at the right po sterior lung. There is no pleural effusion. The heart size is normal. There is no pericardial effusio n. I see no filling defects in the pulmonary arteries. The ascending aorta measures 3.9 cm. There is no evidence of dissection. The bony thorax appears intact. IMPRESSION: No evidence of pulmonary embolism. 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 Lingula and right middle lobe scarring and subsegmental atelectasis. This appears stable. There is ne w minimal right posterior reticular nodular density probably due to scarring compared to old exam.
[2017-10-24] MEDS: SYMBICORT 160-4.5 MCG INHALER INHALATION SCH (19:17)
[2017-10-24 20:05] LABS: Hemoglobin A1C 5.6 % (4.0-6.0)
[2017-10-24 20:43] LABS: Glucose,Whole Blood 312 mg/dL (75-99)
[2017-10-24] MEDS: MELATONIN 3 MG TABLET PO SCH (20:56)
[2017-10-25] MEDS: methylPREDNISolone SOD SUCCI 125 MG/2 ML VIAL IV SCH ×3 (00:39→12:15)
[2017-10-25 07:19] LABS: Glucose,Whole Blood 207 mg/dL (75-99)
[2017-10-25] MEDS: SYMBICORT 160-4.5 MCG INHALER INHALATION SCH ×2 (07:22→19:04)
[2017-10-25] MEDS: IPRATROPIUM-ALBUTEROL 3 ML NEB INHALATION SCH ×5 (07:23→19:03)
[2017-10-25] MEDS ORDERED: PANTOPRAZOLE 40 MG TABLET PO SCH (07:30)
[2017-10-25] MEDS: INSULIN ASPART 100 UNIT/ML 1 ML 10 ML VIAL SQ SCH ×5 (08:11→22:12)
[2017-10-25] MEDS: APIXABAN 2.5 MG TABLET PO SCH ×2 (08:12→20:32)
[2017-10-25] MEDS: METOPROLOL TARTRATE 25 MG TAB PO SCH ×2 (08:12→20:32)
[2017-10-25] MEDS: cefTRIAXone IN SWFI 1,000 MG/10 ML SYRINGE IVP SCH (08:12)
[2017-10-25] MEDS: FAMOTIDINE 20 MG/2 ML VIAL IV SCH (08:13)
[2017-10-25] MEDS: LISINOPRIL 20 MG TAB PO SCH (08:13)
[2017-10-25] MEDS: DILTIAZEM CD 240 MG CAP.ER.24H PO SCH (08:13)
[2017-10-25] MEDS: POTASSIUM CHLORIDE ER 10 MEQ TAB.ER.PRT PO SCH ×2 (08:13→20:32)
[2017-10-25] MEDS: ASPIRIN 81 MG PO SCH (08:14)
[2017-10-25 08:45] LABS: Basophils % (A) 0 %; Eosinophils # (A) 0.1 k/uL (0-0.7); Eosinophils % (A) 1 %; HCT 41.8 % (34.0-46.0); HGB 14.2 gm/dL (11.4-16.0); Lymphocytes % (A) 7 %; MCH 29.5 pg (25.0-35.0); MCHC 33.9 g/dL (31.0-37.0); MCV 86.9 fL (80.0-100.0); Mean Platelet Volume 6.8; Monocytes # (A) 0.4 k/uL (0-1.0); Monocytes % (A) 3 %; Neutrophils # (A) 12.4 k/uL (1.3-7.7); Neutrophils % (A) 88 %; Platelet Count 235 k/uL (150-450); RBC 4.81 m/uL (3.80-5.40); RDW 14.6 % (11.5-15.5); WBC 14.1 k/uL (3.8-10.6)
[2017-10-25] MEDS ORDERED: NICOTINE 14MG/24HR PATCH TRANSDERM SCH (09:00)
[2017-10-25] MEDS ORDERED: FUROSEMIDE 20 MG TAB PO SCH (09:00)
[2017-10-25] MEDS ORDERED: FAMOTIDINE 20 MG TAB PO SCH (09:00)
[2017-10-25 09:10] LABS: Anion Gap 14 mmol/L; Blood Urea Nitrogen 17 mg/dL (7-17); Calcium 9.4 mg/dL (8.4-10.2); Carbon Dioxide 23 mmol/L (22-30); Chloride 101 mmol/L (98-107); Glucose 218 mg/dL (74-99); Potassium 4.3 mmol/L (3.5-5.1); Sodium 138 mmol/L (137-145)
--- NOTE | 2017-10-25 11:05 | ECHOF ---
Referral Reason:lv dysfunction MEASUREMENTS -------- HEIGHT: 165.1 cm WEIGHT: 73.9 kg BP: 126/43 IVSd: 1.3 cm (0.6 - 1.1) LVIDd: 3.3 cm (3.9 - 5.3) LVPWd: 1.4 cm (0.6 - 1.1) IVSs: 1.7 cm LVIDs: 1.5 cm LVPWs: 1.9 cm LAESV Index (A-L): 29.57 ml/m Ao Diam: 2.7 cm (2.0 - 3.7) AV Cusp: 1.2 cm (1.5 - 2.6) LA Diam: 3.5 cm (2.7 - 3.8) MV E David: 1.07 m/s MV DecT: 216 ms MV A David: 1.36 m/s MV E/A Ratio: 0.79 AV maxP.71 mmHg AV meanP.13 mmHg AR PHT: 718 ms RAP: 5.00 mmHg RVSP: 29.40 mmHg FINDINGS -------- Sinus rhythm. This was a technically good study. The left ventricular size is normal. There is moderate concentric left ventricular hypertrophy. O verall left ventricular systolic function is normal with, an EF between 55 - 60 %. The right ventricle is normal in size and function. LA is midly dilated 29-33ml/m2. The right atrium is normal in size. Aortic valve is trileaflet and is mildly thickened. There is mild aortic regurgitation. There is mild aortic stenosis present. Peak/mean gradient across the Aortic Valve is 21.71mmHg / 12.13mmHg. The mitral valve leaflets are mildly thickened. Mild mitral regurgitation is present. Mild tricuspid regurgitation present. The right ventricular systolic pressure, as measured by Doppl er, is 29.40mmHg. Pulmonic valve appears structurally normal. The aortic root size is normal. The pericardium is normal. CONCLUSIONS -------- 1. Sinus rhythm. 2. This was a technically good study. 3. The left ventricular size is normal. 4. There is moderate concentric left ventricular hypertrophy. 5. Overall left ventricular systolic function is normal with, an EF between 55 - 60 %. 6. The right ventricle is normal in size and function. 7. LA is midly dilated 29-33ml/m2. 8. The right atrium is normal in size. 9. Aortic valve is trileaflet and is mildly thickened. 10. There is mild aortic regurgitation. 11. There is mild aortic stenosis present. 12. Peak/mean gradient across the Aortic Valve is 21.71mmHg / 12.13mmHg. 13. The mitral valve leaflets are mildly thickened. 14. Mild mitral regurgitation is present. 15. Mild tricuspid regurgitation present. 16. The right ventricular systolic pressure, as measured by Doppler, is 29.40mmHg. 17. Pulmonic valve appears structurally normal. 18. The aortic root size is normal. 19. The pericardium is normal. SAWMILL SUPERVISOR: Beverley Pearson RDCS
[2017-10-25 11:30] LABS: Glucose,Whole Blood 180 mg/dL (75-99)
[2017-10-25] MEDS: CHOLECALCIFEROL 400 UNIT TAB PO SCH (12:15)
[2017-10-25] MEDS: VIT A,C & E-LUTEIN-MINERALS 1 EACH TAB PO SCH (12:15)
--- NOTE | 2017-10-25 16:22 | P.PN ---
Subjective Progress Note Date: 10/25/17 Principal diagnosis: Increasing shortness of breath, weakness, fatigue, exertional dyspnea Mrs. Perez is a 87-year-old white female patient of Dr. Soriano, also sees Dr. St in the pulmonary office for her history of moderately severe COPD, presented to the hospital on 10/23/2017 at 1717 with complaints of worsening shortness of breath since Tuesday. Patient denies any fever or chills, she describes progressive weakness, fatigue, severe limitation of exercise capacity , patient describes gasping for air with any exertion, even walking in the room. She denied any chest pain, denied any palpitations, denied any worsening swelling in her bilateral lower extremities. Patient has a history of atrial fibrillation, and is currently on Eliquis for chronic anticoagulation. Patient is not on any oxygen at home, and most recent PFT from 08/15/2017 showed FEV1 of 57%, consistent with moderately severe COPD, Gold stage II. Patient had a recent hospitalization in August in [place], where she was intubated and was requiring mechanical ventilation for 3 days for an episode of acute congestive heart failure. Other history includes benign essential hypertension, recent episode of left lower lobe pneumonia and A. fib RVR, patient was hospitalized the beginning of August. Patient is now on diltiazem, digoxin, metoprolol. Patient was previously on Symbicort which was discontinued after her most recent hospitalization. She was seen in follow-up in the office on 10/12/2017 and was doing well, although complaining of some exertional dyspnea. She also follows with Dr. Means, and her most recent echocardiogram from 2017 showed left ventricular systolic function with mild impairment with an EF between 45-50%. Mild aortic valve sclerosis, and mild mitral and tricuspid regurgitation. Right ventricular systolic pressure was 46.5 mmHg, consistent with mild to moderate pulmonary hypertension. 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 Chest x- ray showed no evidence for acute pulmonary disease. Patient has been afebrile, she remains in sinus rhythm with a controlled rate. Her lab work was negative for any evidence of leukocytosis, the PVC was 8.4, d-dimer was negative for 0.38 , electrolytes and renal profile were within normal limits, troponins and cardiac enzymes were negative 1, proBNP was within normal limits at 1070. Patient was started on IV steroids, nebulized treatments, empiric antibiotics and admitted for further management. On 10/25/2017 patient seen in follow-up. Still complaining of some exertional dyspnea, but no acute distress, overall she states she is feeling better, and she is able to ambulate within the room without significant distress. Currently on room air, with O2 sat 94%, vital signs are stable, patient is afebrile, lung sounds are clear to auscultation, no rhonchi no wheezes noted. Patient had a CT angiogram on 10/24/2017 which showed no evidence of pulmonary embolism, though was a left upper lobe and right middle lobe scarring and subsegmental atelectasis which appear to be stable compared to previous CT on . There was a new minimal right posterior reticular nodular density thought to be related to scarring. Patient had a 2-D echocardiogram which showed normal left ventricle systolic function with an EF between 55-60%, mild aortic regurgitation and mild aortic stenosis, with mild mitral and tricuspid regurgitation. No evidence of pulmonary hypertension with a right ventricle systolic pressure of 29.4 mmHg. She denies any chest pain, she is in sinus rhythm with a controlled rate. Her urine appears to be infected, and patient was started on IV Rocephin, blood culture is negative, she denies any urinary complaints. Objective - Vital Signs Vital signs: Vital Signs Temp 98.2 F 10/25/17 06:06 Pulse 76 10/25/17 11:12 Resp 16 10/25/17 06:06 BP 126/43 10/25/17 06:06 Pulse Ox 94 L 10/25/17 06:06 Intake & Output 10/24/17 10/25/17 10/25/17 18:59 06:59 18:59 Intake Total 1999 Balance 1999 Weight 74 kg Intake: Oral 1999 Other: # Voids 4 2 - Exam GENERAL EXAM: Alert, pleasant, 87-year-old white female comfortable in no apparent distress. HEAD: Normocephalic/atraumatic. EYES: Normal reaction of pupils, equal size. Conjunctiva pink, sclera white. NOSE: Clear with pink turbinates. THROAT: No erythema or exudates. NECK: No masses, no JVD, no thyroid enlargement, no adenopathy. CHEST: No chest wall deformity. Symmetrical expansion. LUNGS: Equal air entry with no rales, but no wheezes or rhonchi noted CVS: Regular rate and rhythm, normal S1 and S2, no gallops, no murmurs, no rubs ABDOMEN: Soft, nontender. No hepatosplenomegaly, normal bowel sounds, no guarding or rigidity. EXTREMITIES: No clubbing, no edema, no cyanosis, 2+ pulses and upper and lower extremities. MUSCULOSKELETAL: Muscle strength and tone normal. SPINE: No scoliosis or deformity SKIN: No rashes CENTRAL NERVOUS SYSTEM: Alert and oriented -3. No focal deficits, tone is normal in all 4 extremities. PSYCHIATRIC: Alert and oriented -3. Appropriate affect. Intact judgment and insight. - Labs CBC & Chem 7: 10/25/17 08:22 10/25/17 08:22 Labs: Abnormal Lab Results - Last 24 Hours (Table) 10/24/17 10/24/17 10/24/17 Range/Units 17:07 17:54 20:41 WBC (3.8-10.6) k/uL Neutrophils # (1.3-7.7) k/uL Glucose (74-99) mg/dL POC Glucose (mg/dL) 234 H 312 H (75-99) mg/dL Urine Protein Trace H (Negative) Urine Glucose (UA) 2+ H (Negative) Urine Ketones Trace H (Negative) Ur Leukocyte Esterase Large H (Negative) Urine WBC 13 H (0-5) /hpf Hyaline Casts 12 H (0-2) /lpf Urine Mucus Rare H (None) /hpf 10/25/17 10/25/17 10/25/17 Range/Units 07:04 08:22 08:22 WBC 14.1 H (3.8-10.6) k/uL Neutrophils # 12.4 H (1.3-7.7) k/uL Glucose 218 H (74-99) mg/dL POC Glucose (mg/dL) 207 H (75-99) mg/dL Urine Protein (Negative) Urine Glucose (UA) (Negative) Urine Ketones (Negative) Ur Leukocyte Esterase (Negative) Urine WBC (0-5) /hpf Hyaline Casts (0-2) /lpf Urine Mucus (None) /hpf 10/25/17 Range/Units 11:25 WBC (3.8-10.6) k/uL Neutrophils # (1.3-7.7) k/uL Glucose (74-99) mg/dL POC Glucose (mg/dL) 180 H (75-99) mg/dL Urine Protein (Negative) Urine Glucose (UA) (Negative) Urine Ketones (Negative) Ur Leukocyte Esterase (Negative) Urine WBC (0-5) /hpf Hyaline Casts (0-2) /lpf Urine Mucus (None) /hpf Microbiology - Last 24 Hours (Table) 10/23/17 17:29 Blood Culture - Preliminary Blood No Growth after 24 hours Assessment and Plan Plan: Assessment: #1. Progressive dyspnea, fatigue, limitation of exercise capacity under investigation. CT chest was negative for any evidence of pulmonary embolism, negative for any acute findings, echocardiogram revealed an improved left ventricular function, with EF of 55-60% compared to the most recent echocardiogram from from August 2017 #2. Moderately severe COPD, with a baseline FEV1 of 57% of predicted, Gold stage II #3. Chronic systolic congestive heart failure, most recent EF on 08/08/2017 45- 50%, and evidence of mild to moderate pulmonary hypertension with right ventricular systolic pressure of 46.5 mmHg. Today echocardiogram showed an improved EF of 55-60%, and no evidence of pulmonary hypertension with right ventricular systolic pressure of 29 mmHg #4. History of paroxysmal A. fib, on chronic anticoagulation with Eliquis, currently in sinus rhythm #5. Recent hospitalization for acute systolic congestive heart failure in [place], with acute respiratory failure requiring intubation and mechanical ventilation in August 2017 #6. Left lower lung pneumonia in August 2017 #7. Hypertension #8. Nicotine dependence, in remission, quit 8 years ago, prior to that smoked for over 50 years, less than a pack a day Plan: So far the diagnostic workup has not revealed any explanation for patient's progressive dyspnea, fatigue and limitation of exercise capacity. Patient is being treated with IV steroids, nebulized treatments, and empiric antibiotics. Suspect intermittent episodes of atrial fibrillation, keep the patient on remote telemetry, and the patient will be transferred to the selective care units for closer monitoring I performed a history & physical examination of the patient and discussed their management with my nurse practitioner, Kenna Ervin. I reviewed the nurse practitioner's note and agree with the documented findings and plan of care. Lung sounds are positive bibasilar crackles. The findings and the impression was discussed with the patient. I attest to the documentation by the nurse practitioner. Time with Patient: Less than 30
[2017-10-25 16:56] LABS: Glucose,Whole Blood 239 mg/dL (75-99)
--- NOTE | 2017-10-25 19:17 | P.PN ---
Subjective Progress Note Date: 10/25/17 Progress note being dictated for Dr. Crooks. Interval history: This is an 87-year-old female admitted with acute COPD exacerbation with tracheobronchitis and multiple other medical issues. Maintained on Rocephin, nebulized bronchodilators, IV steroids. Breathing improving, maintaining O2 sats in the mid 90s on room air. 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 Echo reports normal LV function, EF 55-60%. Afebrile, preliminary blood cultures negative.. Denies chest pain, palpitations. Complains of fatigue and worsening exercise tolerance. Patient is being transferred to telemetry unit for closer observation. Telemetry currently sinus rhythm. Objective - Vital Signs Vital signs: Vital Signs Temp 97.5 F L 10/25/17 16:00 Pulse 80 10/25/17 16:25 Resp 16 10/25/17 16:25 BP 160/70 10/25/17 16:00 Pulse Ox 97 10/25/17 16:18 Intake & Output 10/25/17 10/25/17 10/26/17 06:59 18:59 06:59 Intake Total 1316 Balance 1316 Intake: Oral 1316 Other: # Voids 2 4 - Exam PHYSICAL EXAM: VITAL SIGNS: As above GENERAL: Sitting up in chair, no acute distress HEENT: Conjunctivae normal. eyes normal. NECK: No JVD. No thyroid enlargement. No LNs CARDIOVASCULAR: S1, S2 muffled. No murmur, no rubs, no gallops. RESPIRATION: Breath sounds diminished in the bases. No rhonchi or crackles. No wheezing. ABDOMEN: Soft, nontender . No guarding. no masses palpable.Bowel sounds heard. LEGS: No edema. no swelling PSYCHIATRY: Alert and oriented -3, mood and affect normal. NERVOUS SYSTEM: Cranial N 2-12 grossly normal. Moves all 4 limbs. Diffuse weakness No focal deficits. Skin: no ulcer no rash Lymphatic system. No LN neck axilla or groin. - Labs CBC & Chem 7: 10/25/17 08:22 10/25/17 08:22 Labs: Abnormal Lab Results - Last 24 Hours (Table) 10/24/17 10/25/17 10/25/17 Range/Units 20:41 07:04 08:22 WBC 14.1 H (3.8-10.6) k/uL Neutrophils # 12.4 H (1.3-7.7) k/uL Glucose (74-99) mg/dL POC Glucose (mg/dL) 312 H 207 H (75-99) mg/dL 10/25/17 10/25/17 10/25/17 Range/Units 08:22 11:25 16:53 WBC (3.8-10.6) k/uL Neutrophils # (1.3-7.7) k/uL Glucose 218 H (74-99) mg/dL POC Glucose (mg/dL) 180 H 239 H (75-99) mg/dL Microbiology - Last 24 Hours (Table) 10/23/17 17:29 Blood Culture - Preliminary Blood No Growth after 24 hours Assessment and Plan Assessment: 1. Acute COPD exacerbation with acute purulent tracheobronchitis, in a patient with history of severe COPD 2. Chronic proximal atrial fibrillation, anticoagulated on Eliquis 3. Remote history of nicotine dependence 4. Increased ALT 5. Mild to moderate pulmonary hypertension Plan: Continue on current medication regime ,monitoring and symptomatic treatment. Maintain nebulized bronchodilators, empiric antibiotics, steroids. Transferred to 6 E. for closer observation. Close monitoring of electrolytes, with repeat labs ordered for a.m. Follow closely with pulmonary. The impression and plan of care has been dictated as directed. : I performed a history and examination of this patient, discussed the same with the dictator. I agree with the dictator's note ,documented as a scribe. Any additional findings or plans will be noted.
[2017-10-25] MEDS: MELATONIN 3 MG TABLET PO SCH (20:32)
[2017-10-25 21:42] LABS: Glucose,Whole Blood 199 mg/dL (75-99)
[2017-10-26 06:45] LABS: Glucose,Whole Blood 150 mg/dL (75-99)
[2017-10-26] MEDS: INSULIN ASPART 100 UNIT/ML 1 ML 10 ML VIAL SQ SCH ×2 (06:53→12:00)
[2017-10-26 07:16] LABS: Calcium 9.5 mg/dL (8.4-10.2); Magnesium 2.4 mg/dL (1.6-2.3); Potassium 4.5 mmol/L (3.5-5.1)
[2017-10-26 07:24] LABS: Basophils % (A) 0 %; Eosinophils # (A) 0.1 k/uL (0-0.7); Eosinophils % (A) 1 %; HCT 41.6 % (34.0-46.0); HGB 14.1 gm/dL (11.4-16.0); Lymphocytes # (A) 1.1 k/uL (1.0-4.8); Lymphocytes % (A) 9 %; MCH 29.5 pg (25.0-35.0); MCV 86.8 fL (80.0-100.0); Monocytes # (A) 0.6 k/uL (0-1.0); Monocytes % (A) 5 %; Neutrophils # (A) 10.8 k/uL (1.3-7.7); Neutrophils % (A) 85 %; Platelet Count 240 k/uL (150-450); RBC 4.79 m/uL (3.80-5.40); RDW 14.6 % (11.5-15.5); WBC 12.6 k/uL (3.8-10.6)
[2017-10-26] MEDS ORDERED: predniSONE 20 MG TAB PO SCH (09:00)
[2017-10-26 09:14] VITALS: RESP 20
[2017-10-26] MEDS: FAMOTIDINE 20 MG/2 ML VIAL IV SCH (09:15)
[2017-10-26] MEDS: APIXABAN 2.5 MG TABLET PO SCH (09:16)
[2017-10-26] MEDS: METOPROLOL TARTRATE 25 MG TAB PO SCH (09:16)
[2017-10-26] MEDS: DILTIAZEM CD 240 MG CAP.ER.24H PO SCH (09:16)
[2017-10-26] MEDS: POTASSIUM CHLORIDE ER 10 MEQ TAB.ER.PRT PO SCH (09:16)
[2017-10-26] MEDS: ASPIRIN 81 MG PO SCH (09:17)
[2017-10-26] MEDS: IPRATROPIUM-ALBUTEROL 3 ML NEB INHALATION SCH ×3 (09:21→16:29)
[2017-10-26] MEDS: SYMBICORT 160-4.5 MCG INHALER INHALATION SCH (09:21)
[2017-10-26] MEDS: cefTRIAXone IN SWFI 1,000 MG/10 ML SYRINGE IVP SCH (09:23)
[2017-10-26 11:29] LABS: Glucose,Whole Blood 116 mg/dL (75-99)
[2017-10-26] MEDS: LISINOPRIL 20 MG TAB PO SCH (12:24)
[2017-10-26] MEDS: CHOLECALCIFEROL 400 UNIT TAB PO SCH (12:24)
--- NOTE | 2017-10-26 12:24 | P.PN ---
Subjective Progress Note Date: 10/26/17 Principal diagnosis: Shortness of breath secondary to COPD exacerbation, and possibly some component of deconditioning. Mrs. Perez is a 87-year-old white female patient of Dr. Soriano, also sees Dr. St in the pulmonary office for her history of moderately severe COPD, presented to the hospital on 10/23/2017 at 1717 with complaints of worsening shortness of breath since Tuesday. Patient denies any fever or chills, she describes progressive weakness, fatigue, severe limitation of exercise capacity , patient describes gasping for air with any exertion, even walking in the room. She denied any chest pain, denied any palpitations, denied any worsening swelling in her bilateral lower extremities. Patient has a history of atrial fibrillation, and is currently on Eliquis for chronic anticoagulation. Patient is not on any oxygen at home, and most recent PFT from 08/15/2017 showed FEV1 of 57%, consistent with moderately severe COPD, Gold stage II. Patient had a recent hospitalization in August in [place], where she was intubated and was requiring mechanical ventilation for 3 days for an episode of acute congestive heart failure. Other history includes benign essential hypertension, recent episode of left lower lobe pneumonia and A. fib RVR, patient was hospitalized the beginning of August. Patient is now on diltiazem, digoxin, metoprolol. Patient was previously on Symbicort which was discontinued after her most recent hospitalization. She was seen in follow-up in the office on 10/12/2017 and was doing well, although complaining of some exertional dyspnea. She also follows with Dr. Means, and her most recent echocardiogram from 2017 showed left ventricular systolic function with mild impairment with an EF between 45-50%. Mild aortic valve sclerosis, and mild mitral and tricuspid regurgitation. Right ventricular systolic pressure was 46.5 mmHg, consistent with mild to moderate pulmonary hypertension. 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 Chest x- ray showed no evidence for acute pulmonary disease. Patient has been afebrile, she remains in sinus rhythm with a controlled rate. Her lab work was negative for any evidence of leukocytosis, the PVC was 8.4, d-dimer was negative for 0.38 , electrolytes and renal profile were within normal limits, troponins and cardiac enzymes were negative 1, proBNP was within normal limits at 1070. Patient was started on IV steroids, nebulized treatments, empiric antibiotics and admitted for further management. On 10/25/2017 patient seen in follow-up. Still complaining of some exertional dyspnea, but no acute distress, overall she states she is feeling better, and she is able to ambulate within the room without significant distress. Currently on room air, with O2 sat 94%, vital signs are stable, patient is afebrile, lung sounds are clear to auscultation, no rhonchi no wheezes noted. Patient had a CT angiogram on 10/24/2017 which showed no evidence of pulmonary embolism, though was a left upper lobe and right middle lobe scarring and subsegmental atelectasis which appear to be stable compared to previous CT on . There was a new minimal right posterior reticular nodular density thought to be related to scarring. Patient had a 2-D echocardiogram which showed normal left ventricle systolic function with an EF between 55-60%, mild aortic regurgitation and mild aortic stenosis, with mild mitral and tricuspid regurgitation. No evidence of pulmonary hypertension with a right ventricle systolic pressure of 29.4 mmHg. She denies any chest pain, she is in sinus rhythm with a controlled rate. Her urine appears to be infected, and patient was started on IV Rocephin, blood culture is negative, she denies any urinary complaints. Reevaluated today on 10/26/2017, patient continues to have dyspnea on exertion, but improved compared to how she felt upon admission. Workup including chest x- ray, CT angiogram of the chest, echocardiogram, PFT on outpatient basis, still could not explain her profound shortness of breath in comparison to her moderate severe COPD findings on the PFT. I felt yesterday that the patient may be having intermittent episodes of arrhythmia, moves her to a monitored bed overnight, and no significant arrhythmia was noted. She had mostly sinus rhythm , and intermittent episodes of sinus bradycardia. Clearly her CT angiogram of the chest does not explain her dyspnea, and her cardiac studies did not explain her dyspnea, and her dyspnea seems to be more pronounced than expected based on the PFT findings. I feel that most likely on outpatient basis, I may consider sending the patient to the [facility] dyspnea clinic. In the meantime continue present treatment plan, and consider discharge planning the patient home today. Objective - Vital Signs Vital signs: Vital Signs Temp 97.7 F 10/26/17 11:59 Pulse 62 10/26/17 11:59 Resp 20 10/26/17 11:59 BP 156/72 10/26/17 11:59 Pulse Ox 94 L 10/26/17 11:59 Intake & Output 10/25/17 10/26/17 10/26/17 18:59 06:59 18:59 Intake Total 1316 600 Output Total 1000 900 Balance 1316 -1000 -300 Weight 78.8 kg Intake: Oral 1316 600 Output: Urine 1000 900 Other: Voiding Method Toilet # Voids 4 1 # Bowel Movements 0 - Exam GENERAL EXAM: Alert, pleasant, 87-year-old white female comfortable in no apparent distress. HEAD: Normocephalic/atraumatic. EYES: Normal reaction of pupils, equal size. Conjunctiva pink, sclera white. NOSE: Clear with pink turbinates. THROAT: No erythema or exudates. NECK: No masses, no JVD, no thyroid enlargement, no adenopathy. CHEST: No chest wall deformity. Symmetrical expansion. LUNGS: Equal air entry with no rales, but no wheezes or rhonchi noted CVS: Regular rate and rhythm, normal S1 and S2, no gallops, no murmurs, no rubs ABDOMEN: Soft, nontender. No hepatosplenomegaly, normal bowel sounds, no guarding or rigidity. EXTREMITIES: No clubbing, no edema, no cyanosis, 2+ pulses and upper and lower extremities. MUSCULOSKELETAL: Muscle strength and tone normal. SPINE: No scoliosis or deformity SKIN: No rashes CENTRAL NERVOUS SYSTEM: Alert and oriented -3. No focal deficits, tone is normal in all 4 extremities. PSYCHIATRIC: Alert and oriented -3. Appropriate affect. Intact judgment and insight. - Labs CBC & Chem 7: 10/26/17 06:40 10/26/17 06:40 Labs: Abnormal Lab Results - Last 24 Hours (Table) 10/25/17 10/25/17 10/26/17 Range/Units 16:53 21:22 06:36 WBC (3.8-10.6) k/uL Neutrophils # (1.3-7.7) k/uL BUN (7-17) mg/dL Glucose (74-99) mg/dL POC Glucose (mg/dL) 239 H 199 H 150 H (75-99) mg/dL Magnesium (1.6-2.3) mg/dL 10/26/17 10/26/17 10/26/17 Range/Units 06:40 06:40 11:28 WBC 12.6 H (3.8-10.6) k/uL Neutrophils # 10.8 H (1.3-7.7) k/uL BUN 22 H (7-17) mg/dL Glucose 152 H (74-99) mg/dL POC Glucose (mg/dL) 116 H (75-99) mg/dL Magnesium 2.4 H (1.6-2.3) mg/dL Microbiology - Last 24 Hours (Table) 10/23/17 17:29 Blood Culture - Preliminary Blood No Growth after 48 hours Assessment and Plan Assessment: #1. Progressive dyspnea, fatigue, limitation of exercise capacity under investigation. CT chest was negative for any evidence of pulmonary embolism, negative for any acute findings, echocardiogram revealed an improved left ventricular function, with EF of 55-60% compared to the most recent echocardiogram from from August 2017 #2. Moderately severe COPD, with a baseline FEV1 of 57% of predicted, Gold stage II #3. Chronic systolic congestive heart failure, most recent EF on 08/08/2017 45- 50%, and evidence of mild to moderate pulmonary hypertension with right ventricular systolic pressure of 46.5 mmHg. Today echocardiogram showed an improved EF of 55-60%, and no evidence of pulmonary hypertension with right ventricular systolic pressure of 29 mmHg #4. History of paroxysmal A. fib, on chronic anticoagulation with Eliquis, currently in sinus rhythm #5. Recent hospitalization for acute systolic congestive heart failure in [place], with acute respiratory failure requiring intubation and mechanical ventilation in August 2017 #6. Left lower lung pneumonia in August 2017 #7. Hypertension #8. Nicotine dependence, in remission, quit 8 years ago, prior to that smoked for over 50 years, less than a pack a day Recommendation: Suggest discharging the patient home today on the same medications she is presently on with the prednisone burst and taper, and I will see her on outpatient basis, will likely recommend referral to the [facility] for her chronic dyspnea on exertion not clearly correlating with the findings on her PFT. Patient may eventually require further cardiac diagnostic workup on outpatient basis. Time with Patient: Less than 30
[2017-10-26] MEDS: VIT A,C & E-LUTEIN-MINERALS 1 EACH TAB PO SCH (12:25)
[2017-10-26 15:51] VITALS: BP 150/68; PULSE 67; TEMP 97.8
--- NOTE | 2017-10-26 22:03 | DS ---
DISCHARGE SUMMARY DATE OF SERVICE: 10/26/2017 FINAL DIAGNOSES: 1. Chronic obstructive pulmonary disease, acute exacerbation, with purulent tracheobronchitis with severe chronic obstructive pulmonary disease. 2. Paroxysmal atrial fibrillation, anticoagulated with Eliquis. 3. Remote history of nicotine dependence. 4. Increased ALT. 5. Mild to moderate pulmonary hypertension. DISCHARGE DISPOSITION: The patient will be discharged in stable condition with guarded prognosis. HISTORY OF PRESENT ILLNESS: This 87-year-old woman with a past medical history of multiple medical problems presented with COPD exacerbation and multiple other medical issues. She was treated symptomatically. Chest CTA was negative for pulmonary embolism. The patient improved significantly. On exam, vitals are stable. CARDIOVASCULAR SYSTEM: S1, S2 muffled. ABDOMEN: Soft. NERVOUS SYSTEM: No focal deficit. DISCHARGE ADVICE AND MEDICATIONS: 1. Diet is cardiac. 2. Activity limited until followup. 3. Follow up with Dr. Soriano in 2-3 days. 4. Follow up with Dr. Plasencia as advised. 5. Albuterol 1-2 puffs q.6 p.r.n. 6. Eliquis 2.5 mg p.o. b.i.d. 7. Aspirin 81 mg daily. 8. Zithromax 500 mg p.o. daily for 5 days. 9. Symbicort 1 puff b.i.d. 10.Ceftin 500 mg p.o. b.i.d. for 5 days. 11.Vitamin D3 2000 daily. 12.Cardizem CD 240 mg p.o. daily. 13.Pepcid 20 mg p.o. b.i.d. 14.Lasix 20 mg p.o. daily. 15.DuoNeb q.i.d. and p.r.n. 16.Lisinopril 20 mg p.o. daily. 17.Lopressor 25 mg p.o. b.i.d. 18.Klor-Con 10 mEq p.o. b.i.d. 19.Prednisone taper: 40 mg daily for 3 days, 30 mg daily for 3 days, 20 mg daily for 3 days, 10 mg daily for 3 days. 20.Vitamin C/zinc/copper 1 p.o. b.i.d. Once again, the patient will be discharged in stable condition with guarded prognosis. MMODL / IJN: [id number] /
[2017-10-27] MEDS ORDERED: FAMOTIDINE 20 MG TAB PO SCH (09:00)
== END 2017-10-26 17:10 | disposition home or self-care (01) | DRG 191 ==
LOC: EC 16:46 → 4MS4W 18:49 → 6SEL 10-25 16:41
PROVIDERS: ADMIT Hospitalist; ATTEND Hospitalist
DX: J44.0 Chronic obstructive pulmonary disease with (acute) lower respiratory infection (principal); I50.22 Chronic systolic (congestive) heart failure; I27.20 Pulmonary hypertension, unspecified; I08.3 Combined rheumatic disorders of mitral, aortic and tricuspid valves; I11.0 Hypertensive heart disease with heart failure; I48.0 Paroxysmal atrial fibrillation; J20.9 Acute bronchitis, unspecified; J44.1 Chronic obstructive pulmonary disease with (acute) exacerbation; I25.2 Old myocardial infarction; Z79.01 Long term (current) use of anticoagulants; Z79.51 Long term (current) use of inhaled steroids; Z79.52 Long term (current) use of systemic steroids; Z79.82 Long term (current) use of aspirin; Z79.899 Other long term (current) drug therapy; Z80.0 Family history of malignant neoplasm of digestive organs; Z87.01 Personal history of pneumonia (recurrent); Z87.891 Personal history of nicotine dependence; Z88.2 Allergy status to sulfonamides; R74.8 Abnormal levels of other serum enzymes; Z91.013 Allergy to seafood
CPT/HCPCS: 36415; 71046; 71275; 80048; 80053; 81001; 82550; 82553; 83036; 83735; 83880; 84484; 85025; 85379; 85610; 85730; 87040; 93005; 93306; 94640; 94760; 96374; 99285

== ENCOUNTER → 2017-10-28 | Outpatient (CLI) | payer MEDICARE ==
[2017-10-28 12:06] LABS: Basophils % (A) 0 %; Eosinophils # (A) 0.1 k/uL (0-0.7); Eosinophils % (A) 1 %; HCT 46.2 % (34.0-46.0); HGB 15.2 gm/dL (11.4-16.0); Lymphocytes # (A) 1.5 k/uL (1.0-4.8); Lymphocytes % (A) 14 %; MCH 28.5 pg (25.0-35.0); MCV 86.3 fL (80.0-100.0); Mean Platelet Volume 6.8; Monocytes # (A) 0.6 k/uL (0-1.0); Monocytes % (A) 5 %; Neutrophils # (A) 8.3 k/uL (1.3-7.7); Neutrophils % (A) 79 %; Platelet Count 274 k/uL (150-450); RBC 5.35 m/uL (3.80-5.40); RDW 14.5 % (11.5-15.5); WBC 10.5 k/uL (3.8-10.6)
[2017-10-28 12:13] LABS: Calcium 8.8 mg/dL (8.4-10.2); Potassium 4.4 mmol/L (3.5-5.1)
== END | disposition home or self-care (01) ==
LOC: LABWHC1 11:18
PROVIDERS: ATTEND Nurse Practitioner
DX: J44.9 Chronic obstructive pulmonary disease, unspecified (principal)
CPT/HCPCS: 36415; 80048; 85025

== ENCOUNTER → 2017-11-04 | Outpatient (CLI) | payer MEDICARE ==
--- NOTE | 2017-12-07 14:40 | EM ---
EVENT MONITOR Patient was monitored between November 04 and December 06, 2017. Rhythm strip revealed a sinus mechanism with episode of atrial fibrillation, paroxysmal with evidence of pacemaker activity. On November 09, there was a pause of 3.5 seconds. LUPILLO / DAMARIN: [id number] /
== END | disposition home or self-care (01) ==
LOC: RADECHMAIN 11:40
PROVIDERS: ATTEND Family Medicine
DX: I48.0 Paroxysmal atrial fibrillation (principal); Z88.6 Allergy status to analgesic agent; Z88.2 Allergy status to sulfonamides
CPT/HCPCS: 93270; 93271

== ENCOUNTER 2017-11-17 06:51 | Day surgery (SDC) | payer MEDICARE ==
[2017-11-14 15:41] VITALS: BMI 28.3
[~2017-11-17 06:51] MED LIST: ceFAZolin 1,000 MG in SODIUM CHLORIDE 0.9% IRRIGATIO 250 ML IRRIGATION ONE; ceFAZolin IN SWFI 2 GM/20 ML SYRINGE IVP ONE
[2017-11-17] MEDS: SODIUM CHLORIDE 0.9% 1,000 ML IV SCH ×4 (07:17→16:19)
[2017-11-17] MEDS ORDERED: IOPAMIDOL-370 50ML BTL INJ ONE (07:45)
[2017-11-17] MEDS ORDERED: diphenhydrAMINE 50 MG/ML 1 ML VIAL IVP ONE (08:02)
[2017-11-17] MEDS ORDERED: fentaNYL (PF) 50 MCG/ML 2 ML AMP IV ONE (08:10)
[2017-11-17] MEDS ORDERED: LIDOCAINE 2% INJ 20 MG/ML SQ ONE (08:11)
[2017-11-17] MEDS ORDERED: LIDOCAINE 1% INJ 10MG/ML (20 ML MDV) SQ ONE (08:11)
[2017-11-17] MEDS: LIDOCAINE 1% INJ 10MG/ML (20 ML MDV) SQ ONE ×2 (08:16→08:18)
[2017-11-17] MEDS ORDERED: hydrALAZINE HCL 20 MG/ML 1 ML VIAL IV ONE (08:40)
[2017-11-17] MEDS ORDERED: ACETAMINOPHEN TAB 325 MG TAB PO PRN (09:16)
--- NOTE | 2017-11-17 09:29 | P.PCN ---
Date of Procedure: 11/17/17 Preoperative Diagnosis: Sick sinus syndrome with paroxysmal atrial fibrillation and pauses. Postoperative Diagnosis: The same Procedure(s) Performed: Permanent pacemaker implantation Description of Procedure: HISTORY: This is a 87-year-old female with history of sick sinus syndrome with episodes of paroxysmal atrial fibrillation and pauses up to 3.5 seconds. Patient is advised to have permanent pacemaker implantation. Patient was also having episodes of dizziness and near syncope. CONSENT:I have discussed the risks, benefits and alternative therapies for the above-mentioned procedure and for both sedation/analgesia as well as necessary blood product administration, if indicated, as they pertain to this patient. The patient has indicated understanding and acceptance of the risks and procedures discussed. PROCEDURE: Patient was brought to the lab in a fasting state. Patient was prepped and draped in the usual fashion. Patient was given IV sedation with fentanyl and Versed. The skin below the left clavicle was infiltrated with lidocaine. An incision was made parallel to deltopectoral groove was deepened until the pectoral fascia was exposed. A pocket was created by blunt dissection and cautery. Axillary venography was performed to delineate the course of the axillary vein. 2 sticks were performed into extrathoracic portion of the axillary vein and 2 sheaths were advanced over the guidewires and left in subclavian vein. Conscious Sedation: Versed 0mg Fentanyl 25 g Duration 59minutes LEADS: ATRIAL: This is manufactured by [employer]. Model number is [id number]. Serial number [id number]. VENTRICULAR: This is manufactured by [employer]. Model number is 5076. Serial number [id number]. The ventricular lead is maneuvered l with help of a straight and curved stylets into the left ventricle apical region. Satisfactory position was obtained and threshold measurements were made. The atrial lead was then maneuvered into the right atrial appendage. And thresholds were obtained. THRESHOLDS: ATRIUM: The minimum pacing threshold was 0.6 at pulse width of 0.4 with impedance of 789 ohms. P-wave: The 3.9 VENTRICLE: The minimum patient threshold is 0.8 at pulse width of 0.4. The impedance is 1320. R-wave: 12.1 The leads and pulse generator remained in the pocket after it was washed with antibiotics. Pocket was closed in the usual fashion. The fascia was closed with 2-0 Prolene ,the subcutaneous tissue was closed with 3-0 Prolene and the skin was closed with 4-0 Prolene. PROGRAMMING: MODE: AAIR with mode switch to DDDR RATE: 60 to 1:30 OUTPUT: Atrium: 3.5 Ventricle: 3.5 V FINAL IMPRESSION: #1 axillary venography #2 successful implantation of dual- chamber permanent pacemaker. COMPLICATIONS: None PLAN: Continue prophylactic antibiotics. Monitor on the telemetry unit. Chest x-ray in the morning. If stable patient will be discharged home in 24 hours.
[2017-11-17] MEDS ORDERED: ALBUTEROL INHALER 60 PUFF/8 GM INHALER INHALATION PRN (09:48)
[2017-11-17] MEDS ORDERED: IPRATROPIUM-ALBUTEROL 3 ML NEB INHALATION PRN (09:48)
[2017-11-17] MEDS ORDERED: ACETAMINOPHEN IV (For NPO) 1,000 MG in EMPTY BAG 1 BAG IVPB ONE (15:00)
[2017-11-17] MEDS: ceFAZolin IN SWFI 2 GM/20 ML SYRINGE IVP SCH ×2 (16:18→20:06)
[2017-11-17] MEDS: VIT A,C & E-LUTEIN-MINERALS 1 EACH TAB PO SCH (16:18)
[2017-11-17] MEDS: SYMBICORT 160-4.5 MCG INHALER INHALATION SCH (18:51)
[2017-11-17] MEDS: POTASSIUM CHLORIDE ER 10 MEQ TAB.ER.PRT PO SCH (20:06)
[2017-11-17] MEDS: FAMOTIDINE 20 MG TAB PO SCH (20:06)
[2017-11-17] MEDS: METOPROLOL TARTRATE 25 MG TAB PO SCH (20:06)
[2017-11-18] MEDS: ceFAZolin IN SWFI 2 GM/20 ML SYRINGE IVP SCH ×2 (03:04→09:08)
--- NOTE | 2017-11-18 07:19 | XR ---
EXAMINATION TYPE: XR chest 2V DATE OF EXAM: 11/18/2017 COMPARISON: 10/23/2017 and 10/24/2017 HISTORY: Difficulty breathing TECHNIQUE: Frontal and lateral views of the chest are obtained. FINDINGS: There is a small amount of intrafissural fluid on the left. Diffuse interstitial prominenc e and mild cephalization are noted. No sizable pleural effusion or pneumothorax. There is generalized osseous demineralization and degenerative changes of the acromioclavicular joints and glenohumeral j oints. The humeral heads are high riding suggesting chronic rotator cuff injury bilaterally. Cardia m ediastinal silhouette is nonenlarged with dual lead left-sided cardiac device. IMPRESSION: Increasing interstitial prominence and mild cephalization concerning for noncardiogenic fluid overload. Alternatively this could relate to atypical pneumonitis.
[2017-11-18] MEDS: VIT A,C & E-LUTEIN-MINERALS 1 EACH TAB PO SCH (07:34)
[2017-11-18] MEDS: SYMBICORT 160-4.5 MCG INHALER INHALATION SCH (07:40)
--- NOTE | 2017-11-18 08:08 | P.DS ---
Providers Date of admission: 11/17/2017 Attending physician: Rosa Means Primary care physician: Diego Soriano - Discharge Diagnosis(es) (1) Sick sinus syndrome Current Visit: Yes Status: Acute (2) Persistent atrial fibrillation Current Visit: Yes Status: Acute (3) COPD (chronic obstructive pulmonary disease) Current Visit: Yes Status: Acute Hospital Course: This is a 87-year-old female with history of severe COPD and also persistent atrial fibrillation. Patient has been having episodes of dizziness and lightheadedness. She had given monitor which showed evidence of bradycardia and pauses up to 3.5 second during conversion from atrial fibrillation to sinus rhythm. Patient is advised to have permanent pacemaker implantation. Patient had a dual-chamber pacemaker yesterday without any complications. Patient remains stable. She feels good. Denies any significant shortness of breath or chest pain. Chest x-ray showed proper lead position. No evidence of pneumothorax. Chronic changes are noted without any acute abnormality. Patient will be discharged home later today. She is given usual instructions. She needs to keep left arm below the shoulder levels. She also advised not to do any heavy lifting, pushing or pulling with left hand. Patient is instructed to call us if she develops any significant pain, swelling, fever or chills. Follow-up in the office in one week. She will continue home medications and prophylactic antibiotic, Keflex 500 mg by mouth 3 times a day for 3 days. She will start anti-cognition from this evening Plan - Discharge Summary Discharge Rx Participant: No New Discharge Prescriptions: New Cephalexin [Keflex] 500 mg PO Q8HR #10 cap No Action Aspirin 81 mg PO DAILY Vit C/E/Zn/Coppr/Lutein/Zeaxan [Preservision Areds 2 Softgel] 1 cap PO BID Albuterol Sulfate [Proair Hfa] 1 - 2 puff INHALATION Q4HR PRN PRN Reason: Shortness Of Breath Ipratropium-Albuterol Nebulize [Duoneb 0.5 mg-3 mg/3 ml Soln] 3 ml INHALATION BID PRN PRN Reason: sob Budesonide/Formoterol Fumarate [Symbicort 160-4.5 Mcg Inhaler] 2 puff INHALATION BID Apixaban [Eliquis] 2.5 mg PO BID tablet Diltiazem Cd [Cardizem CD] 240 mg PO DAILY #30 cap.er.24h Furosemide [Lasix] 20 mg PO DAILY #30 tab Metoprolol Tartrate [Lopressor] 25 mg PO BID Lisinopril 20 mg PO DAILY Famotidine [Pepcid] 20 mg PO BID Potassium Chloride [Klor-Con 10] 10 meq PO BID Cholecalciferol [Vitamin D3] 2,000 unit PO DAILY Discharge Medication List Aspirin 81 mg PO DAILY 01/18/15 [History] Vit C/E/Zn/Coppr/Lutein/Zeaxan [Preservision Areds 2 Softgel] 1 cap PO BID 01/18 [History] Albuterol Sulfate [Proair Hfa] 1 - 2 puff INHALATION Q4HR PRN 03/21/16 [History] Budesonide/Formoterol Fumarate [Symbicort 160-4.5 Mcg Inhaler] 2 puff INHALATION BID 08/07/17 [History] Ipratropium-Albuterol Nebulize [Duoneb 0.5 mg-3 mg/3 ml Soln] 3 ml INHALATION BID PRN 08/07/17 [History] Apixaban [Eliquis] 2.5 mg PO BID tablet 08/11/17 [Rx] Diltiazem Cd [Cardizem CD] 240 mg PO DAILY #30 cap.er.24h 08/11/17 [Rx] Furosemide [Lasix] 20 mg PO DAILY #30 tab 08/11/17 [Rx] Famotidine [Pepcid] 20 mg PO BID 10/23/17 [History] Lisinopril 20 mg PO DAILY 10/23/17 [History] Metoprolol Tartrate [Lopressor] 25 mg PO BID 10/23/17 [History] Potassium Chloride [Klor-Con 10] 10 meq PO BID 10/23/17 [History] Cholecalciferol [Vitamin D3] 2,000 unit PO DAILY 11/14/17 [History] Cephalexin [Keflex] 500 mg PO Q8HR #10 cap 11/18/17 [Rx] Follow up Appointment(s)/Referral(s): Rosa Means MD [STAFF PHYSICIAN] - 1 Week
[2017-11-18 08:19] VITALS: RESP 16
[2017-11-18] MEDS: SODIUM CHLORIDE 0.9% 1,000 ML IV SCH (08:57)
[2017-11-18] MEDS ORDERED: LISINOPRIL 20 MG TAB PO SCH (09:00)
[2017-11-18] MEDS ORDERED: FUROSEMIDE 20 MG TAB PO SCH (09:00)
[2017-11-18] MEDS ORDERED: DILTIAZEM CD 240 MG CAP.ER.24H PO SCH (09:00)
[2017-11-18] MEDS: METOPROLOL TARTRATE 25 MG TAB PO SCH (09:01)
[2017-11-18] MEDS: POTASSIUM CHLORIDE ER 10 MEQ TAB.ER.PRT PO SCH (09:01)
[2017-11-18] MEDS: FAMOTIDINE 20 MG TAB PO SCH (09:01)
[2017-11-18] MEDS ORDERED: CHOLECALCIFEROL 1,000 UNIT TAB PO SCH (12:00)
[2017-11-18 12:03] VITALS: BP 181/85; PULSE 72; TEMP 97.9
--- NOTE | 2017-11-23 05:14 | CDI ---
Date: 11/23/17 CDS/Automotive Exhaust Emissions Technician Name: Phone: If any questions, call Liz Wang Dairy Powder Mixer Operator at [phone] Patient Name: Zehra Perez Admit Date: 11/17/17 Discharge Date: 11/18/17 ATTENTION: The [facility] Coding Staff appreciate your assistance in clarifying documentation. Please respond to the clarification below the line at the bottom and electronically sign. The [facility] Coding staff will review the response and follow-up if needed. Please note: Queries are made part of the Legal Health Record. If you have any questions, please contact the Dairy Powder Mixer Operator. Dear Dr. Manley, Please provide clarification as to the type of atrial fibrillation was diagnoses. On the H&P and the Discharge Summary persistent atrial fibrillation is documented. On the operative report, paroxysmal atrial fibrillation is documented. Thank you for your kind consideration. MTDD
--- NOTE | 2017-11-29 09:41 | CDI ---
Date: 11/29/17 CDS/Student Services Director Name: Quin Sahu Phone: If any questions, call Liz Wang Circular Clerk at [phone] Patient Name: Zehra Perez Admit Date: 11/17/17 Discharge Date: 11/18/17 ATTENTION: The [facility] Coding Staff appreciate your assistance in clarifying documentation. Please respond to the clarification below the line at the bottom and electronically sign. The [facility] Coding staff will review the response and follow-up if needed. Please note: Queries are made part of the Legal Health Record. If you have any questions, please contact the Circular Clerk. Dear Dr. Means, Please provide clarification as to the type of atrial fibrillation was diagnoses. On the H&P and the Discharge Summary persistent atrial fibrillation is documented. On the operative report, paroxysmal atrial fibrillation is documented. Thank you for your kind consideration. This patient has history of persistent atrial fibrillation as documented in H&P and also in the discharge summary. ANNA
== END 2017-11-18 12:38 | disposition home or self-care (01) ==
LOC: CATHEP 06:51 → 3OBS 09:05 → CATHEP 11-18 12:38
PROVIDERS: ATTEND Internal Medicine Cardiovascular Disease
DX: I49.5 Sick sinus syndrome (principal); I48.1 Persistent atrial fibrillation; Z79.01 Long term (current) use of anticoagulants; I11.0 Hypertensive heart disease with heart failure; I50.42 Chronic combined systolic (congestive) and diastolic (congestive) heart failure; J44.9 Chronic obstructive pulmonary disease, unspecified; Z87.891 Personal history of nicotine dependence; I42.0 Dilated cardiomyopathy; Z79.82 Long term (current) use of aspirin; Z79.51 Long term (current) use of inhaled steroids; Z79.899 Other long term (current) drug therapy; Z88.2 Allergy status to sulfonamides
CPT/HCPCS: 94640 ×2; 33208; 71046; C1769 ×2; C1892; C1785; C1898 ×2; J0360; J1200; J2001; J3010; J0690 ×2; Q9967

== ENCOUNTER → 2017-11-21 | Outpatient (CLI) | payer MEDICARE ==
[2017-11-21 11:27] LABS: Anion Gap 10 mmol/L; Blood Urea Nitrogen 11 mg/dL (7-17); Calcium 8.8 mg/dL (8.4-10.2); Carbon Dioxide 28 mmol/L (22-30); Chloride 99 mmol/L (98-107); Glucose 136 mg/dL (74-99); Potassium 4.2 mmol/L (3.5-5.1); Sodium 137 mmol/L (137-145)
== END | disposition home or self-care (01) ==
LOC: LABWHC1 10:45
PROVIDERS: ATTEND Internal Medicine
DX: I50.9 Heart failure, unspecified (principal); R06.02 Shortness of breath
CPT/HCPCS: 36415; 80048; 83880

== ENCOUNTER 2018-06-01 14:17 | Observation (INO) | payer MEDICARE ==
[2018-06-01 15:06] LABS: Basophils % (A) 0 %; Eosinophils # (A) 0.1 k/uL (0-0.7); Eosinophils % (A) 1 %; HCT 44.4 % (34.0-46.0); HGB 14.3 gm/dL (11.4-16.0); Lymphocytes # (A) 1.1 k/uL (1.0-4.8); Lymphocytes % (A) 11 %; MCH 29.1 pg (25.0-35.0); MCHC 32.3 g/dL (31.0-37.0); MCV 90.3 fL (80.0-100.0); Mean Platelet Volume 6.2; Monocytes # (A) 0.4 k/uL (0-1.0); Monocytes % (A) 4 %; Neutrophils # (A) 7.8 k/uL (1.3-7.7); Neutrophils % (A) 83 %; Platelet Count 190 k/uL (150-450); RBC 4.92 m/uL (3.80-5.40); RDW 14.9 % (11.5-15.5); WBC 9.4 k/uL (3.8-10.6)
[2018-06-01 15:15] LABS: INR 1.1 (<1.2); Partial Thromboplastin Time 27.8 sec (22.0-30.0); Prothrombin Time 10.3 sec (9.0-12.0)
[2018-06-01 15:36] LABS: Albumin 3.5 g/dL (3.5-5.0); Calcium 8.5 mg/dL (8.4-10.2); Creatine Kinase 41 U/L (30-135); Potassium 4.1 mmol/L (3.5-5.1); Total Bilirubin 1.1 mg/dL (0.2-1.3); Total Protein 5.8 g/dL (6.3-8.2)
--- NOTE | 2018-06-01 15:46 | XR ---
EXAMINATION TYPE: XR chest 2V DATE OF EXAM: 06/01/2018 COMPARISON: CTA chest October 24, 2017. Two-view chest x-ray May 08, 2018. HISTORY: History of COPD, hypertension, and atrial fibrillation with shortness of breath. TECHNIQUE: Frontal and lateral views of the chest are obtained. FINDINGS: There is chronic emphysematous change with bibasilar scarring and/or atelectasis and chron ic consolidation or scarring along left heart border. There is no suspicious new focal air space opac ity, pleural effusion, or pneumothorax seen. The cardiac silhouette size remains within normal limit s with dual lead pacemaker redemonstrated. The osseous structures are demineralized. Overlying meta llic zipper is noted. IMPRESSION: Chronic changes without new acute pulmonary process.
[2018-06-01 15:48] LABS: Creatine Kinase MB 2.1 ng/mL (0.0-2.4); Troponin I <0.012 ng/mL (0.000-0.034)
[2018-06-01] MEDS ORDERED: IPRATROPIUM-ALBUTEROL 3 ML NEB INHALATION STA (15:56)
--- NOTE | 2018-06-01 16:48 | ED ---
SOB HPI - General Chief Complaint: Shortness of Breath Stated Complaint: SOB Time Seen by Provider: 06/01/18 15:45 Source: patient, RN notes reviewed Mode of arrival: wheelchair Limitations: no limitations - History of Present Illness Initial Comments: 87-year-old female presents emergency Department chief complaint of shortness of breath and one episode of chest pain. Patient states that she's had a recent lung infection was on antibiotics just tapering off steroids currently. 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 Patient saw Dr. Plasencia on Tuesday and was told that this most likely cardiac in nature and was referred to a new humanities instructor. Patient did have some dizziness at the time was given Antivert. Patient reports no fever or chills. Patient denies any current headache, blurred vision , focal weakness, nausea vomiting. She states she does get short of breath and she does have a history of COPD. patient states that she knows she has a wet sounding cough and has been wheezing throughout the day - Related Data Home Medications Medication Instructions Recorded Confirmed Aspirin 81 mg PO DAILY 01/18/15 11/17/17 Vit C/E/Zn/Coppr/Lutein/Zeaxan 1 cap PO BID 01/18/15 11/17/17 [Preservision Areds 2 Softgel] Albuterol Sulfate [Proair Hfa] 1 - 2 puff INHALATION Q4HR PRN 03/21/16 11/17/17 Budesonide/Formoterol Fumarate 2 puff INHALATION BID 08/07/17 11/17/17 [Symbicort 160-4.5 Mcg Inhaler] Ipratropium-Albuterol Nebulize 3 ml INHALATION BID PRN 08/07/17 11/17/17 [Duoneb 0.5 mg-3 mg/3 ml Soln] Famotidine [Pepcid] 20 mg PO BID 10/23/17 11/17/17 Lisinopril 20 mg PO DAILY 10/23/17 11/17/17 Metoprolol Tartrate [Lopressor] 25 mg PO BID 10/23/17 11/17/17 Potassium Chloride [Klor-Con 10] 10 meq PO BID 10/23/17 11/17/17 Cholecalciferol [Vitamin D3] 2,000 unit PO DAILY 11/14/17 11/17/17 Previous Rx's Medication Instructions Recorded Apixaban [Eliquis] 2.5 mg PO BID tablet 08/11/17 Diltiazem Cd [Cardizem CD] 240 mg PO DAILY #30 cap.er.24h 08/11/17 Furosemide [Lasix] 20 mg PO DAILY #30 tab 08/11/17 Cephalexin [Keflex] 500 mg PO Q8HR #10 cap 11/18/17 Allergies Allergy/AdvReac Type Severity Reaction Status Date / Time shellfish derived [Shellfish] Allergy Nausea & Verified 06/01/18 17:02 Vomiting & Diarrhea Sulfa (Sulfonamide Allergy Unknown Verified 06/01/18 17:02 Antibiotics) Childhood Review of Systems ROS Statement: Those systems with pertinent positive or pertinent negative responses have been documented in the HPI. ROS Other: All systems not noted in ROS Statement are negative. Past Medical History Past Medical History: Atrial Fibrillation, Cancer, COPD, Hypertension, Osteoarthritis (OA) Additional Past Medical History / Comment(s): see Dr Means H&P, skin cancer on scalp History of Any Multi-Drug Resistant Organisms: None Reported Past Surgical History: Hernia Repair, Tonsillectomy Additional Past Surgical History / Comment(s): skin cancer removed from scalp, andrew cataracts, Past Anesthesia/Blood Transfusion Reactions: No Reported Reaction Past Psychological History: No Psychological Hx Reported Smoking Status: Former smoker Past Alcohol Use History: Occasional Past Drug Use History: None Reported - Past Family History Father Additional Family Medical History / Comment(s): heart issues Mother Family Medical History: Cancer Additional Family Medical History / Comment(s): Pancreatic [place] General Exam Limitations: no limitations General appearance: alert, in no apparent distress Head exam: Present: atraumatic, normocephalic, normal inspection Eye exam: Present: normal appearance, PERRL, EOMI. Absent: scleral icterus, conjunctival injection, periorbital swelling ENT exam: Present: normal exam, normal oropharynx, mucous membranes moist, TM's normal bilaterally Neck exam: Present: normal inspection, full ROM. Absent: tenderness, meningismus, lymphadenopathy Respiratory exam: Present: wheezes. Absent: normal lung sounds bilaterally, respiratory distress, rales, rhonchi, stridor Cardiovascular Exam: Present: regular rate, normal rhythm, normal heart sounds. Absent: systolic murmur, diastolic murmur, rubs, gallop, clicks GI/Abdominal exam: Present: soft, normal bowel sounds. Absent: distended, tenderness, guarding, rebound, rigid Neurological exam: Present: alert, oriented X3, CN II-XII intact Skin exam: Present: warm, dry, intact, normal color. Absent: rash Course Vital Signs 06/01/18 06/01/18 06/01/18 14:22 16:03 16:33 Temperature 97.9 F Pulse Rate 75 65 Respiratory 18 24 Rate Blood Pressure 152/78 O2 Sat by Pulse 97 Oximetry 06/01/18 16:54 Temperature Pulse Rate 68 Respiratory Rate Blood Pressure O2 Sat by Pulse Oximetry Medical Decision Making - Medical Decision Making 87-year-old female presented for shortness of breath chest pain. Patient will be admitted for COPD, CHF exacerbation with repeat troponin. Patient does have some mild changes noted on EKG no normal cardiac panel. - Lab Data Result diagrams: 06/01/18 14:44 06/01/18 14:44 Lab Results 06/01/18 06/01/18 06/01/18 Range/Units 14:44 14:44 14:44 WBC 9.4 (3.8-10.6) k/uL RBC 4.92 (3.80-5.40) m/uL Hgb 14.3 (11.4-16.0) gm/dL Hct 44.4 (34.0-46.0) % MCV 90.3 (80.0-100.0) fL MCH 29.1 (25.0-35.0) pg MCHC 32.3 (31.0-37.0) g/dL RDW 14.9 (11.5-15.5) % Plt Count 190 (150-450) k/uL Neutrophils % 83 % Lymphocytes % 11 % Monocytes % 4 % Eosinophils % 1 % Basophils % 0 % Neutrophils # 7.8 H (1.3-7.7) k/uL Lymphocytes # 1.1 (1.0-4.8) k/uL Monocytes # 0.4 (0-1.0) k/uL Eosinophils # 0.1 (0-0.7) k/uL Basophils # 0.0 (0-0.2) k/uL PT (9.0-12.0) sec INR (<1.2) APTT (22.0-30.0) sec Sodium 138 (137-145) mmol/L Potassium 4.1 (3.5-5.1) mmol/L Chloride 103 (98-107) mmol/L Carbon Dioxide 28 (22-30) mmol/L Anion Gap 7 mmol/L BUN 21 H (7-17) mg/dL Creatinine 1.07 H (0.52-1.04) mg/dL Est GFR (CKD-EPI)AfAm 55 (>60 ml/min/1.73 sqM) Est GFR (CKD-EPI)NonAf 47 (>60 ml/min/1.73 sqM) Glucose 147 H (74-99) mg/dL Calcium 8.5 (8.4-10.2) mg/dL Total Bilirubin 1.1 (0.2-1.3) mg/dL AST 121 H (14-36) U/L ALT 106 H (9-52) U/L Alkaline Phosphatase 81 (38-126) U/L Total Creatine Kinase 41 (30-135) U/L CK-MB (CK-2) 2.1 (0.0-2.4) ng/mL CK-MB (CK-2) Rel Index 5.1 Troponin I <0.012 (0.000-0.034) ng/mL NT-Pro-B Natriuret Pep pg/mL Total Protein 5.8 L (6.3-8.2) g/dL Albumin 3.5 (3.5-5.0) g/dL 06/01/18 06/01/18 Range/Units 14:44 14:44 WBC (3.8-10.6) k/uL RBC (3.80-5.40) m/uL Hgb (11.4-16.0) gm/dL Hct (34.0-46.0) % MCV (80.0-100.0) fL MCH (25.0-35.0) pg MCHC (31.0-37.0) g/dL RDW (11.5-15.5) % Plt Count (150-450) k/uL Neutrophils % % Lymphocytes % % Monocytes % % Eosinophils % % Basophils % % Neutrophils # (1.3-7.7) k/uL Lymphocytes # (1.0-4.8) k/uL Monocytes # (0-1.0) k/uL Eosinophils # (0-0.7) k/uL Basophils # (0-0.2) k/uL PT 10.3 (9.0-12.0) sec INR 1.1 (<1.2) APTT 27.8 (22.0-30.0) sec Sodium (137-145) mmol/L Potassium (3.5-5.1) mmol/L Chloride (98-107) mmol/L Carbon Dioxide (22-30) mmol/L Anion Gap mmol/L BUN (7-17) mg/dL Creatinine (0.52-1.04) mg/dL Est GFR (CKD-EPI)AfAm (>60 ml/min/1.73 sqM) Est GFR (CKD-EPI)NonAf (>60 ml/min/1.73 sqM) Glucose (74-99) mg/dL Calcium (8.4-10.2) mg/dL Total Bilirubin (0.2-1.3) mg/dL AST (14-36) U/L ALT (9-52) U/L Alkaline Phosphatase (38-126) U/L Total Creatine Kinase (30-135) U/L CK-MB (CK-2) (0.0-2.4) ng/mL CK-MB (CK-2) Rel Index Troponin I (0.000-0.034) ng/mL NT-Pro-B Natriuret Pep 5370 pg/mL Total Protein (6.3-8.2) g/dL Albumin (3.5-5.0) g/dL 06/01/18 17:04 EKG performed at 14:30 normal sinus rhythm rate of 73 AR 200 QRS 94 QTC is QTC 420/[address] depression noted in the lateral Disposition Clinical Impression: Acute exacerbation of chronic obstructive pulmonary disease (COPD), CHF exacerbation, Chest pain Disposition: ADMITTED IP TO THIS [facility] Referrals: Phoenix Gutiérrez MD [Primary Care Provider] - 1-2 days
[2018-06-01] MEDS ORDERED: methylPREDNISolone SOD SUCCI 125 MG/2 ML VIAL IV STA (17:02)
[2018-06-01] MEDS ORDERED: FUROSEMIDE 10 MG/ML 2 ML VIAL IV ONE (17:02)
[2018-06-01] MEDS ORDERED: HEPARIN SODIUM,PORCINE 5,000 UNIT/ML 1 ML VIAL IV ONE (17:05)
[2018-06-01] MEDS ORDERED: HEPARIN SOD,PORK IN 0.45% NACL 25,000 UNIT in 0.45% NACL 1 500ML.BAG IV SCH (17:15)
[2018-06-01] MEDS: IPRATROPIUM-ALBUTEROL 3 ML NEB INHALATION SCH (21:00)
[2018-06-01] MEDS: FUROSEMIDE 10 MG/ML 2 ML VIAL IV SCH (21:51)
[2018-06-01] MEDS: methylPREDNISolone SOD SUCCI 40 MG/ML 1 ML VIAL IV SCH (23:58)
[2018-06-02] MEDS: IPRATROPIUM-ALBUTEROL 3 ML NEB INHALATION SCH ×7 (00:28→23:32)
[2018-06-02 03:58] LABS: Cholesterol 173 mg/dL (<200); HDL Cholesterol 86 mg/dL (40-60); LDL Cholesterol,Calculated 72 mg/dL (0-99); Triglycerides 76 mg/dL (<150)
[2018-06-02] MEDS: methylPREDNISolone SOD SUCCI 40 MG/ML 1 ML VIAL IV SCH ×4 (05:40→23:20)
[2018-06-02 06:04] LABS: Glucose,Whole Blood 168 mg/dL (75-99)
[2018-06-02] MEDS: INSULIN ASPART 100 UNIT/ML 1 ML 10 ML VIAL SQ SCH ×4 (06:40→21:02)
[2018-06-02] MEDS ORDERED: ASPIRIN 325 MG TAB PO SCH (09:00)
[2018-06-02] MEDS: FUROSEMIDE 10 MG/ML 2 ML VIAL IV SCH ×2 (09:01→20:43)
--- NOTE | 2018-06-02 09:29 | P.CRDCN ---
History of Present Illness Consult date: 06/02/18 History of present illness: This is a 87-year-old female with history of COPD, paroxysmal atrial fibrillation and chronic congestive heart failure who apparently had upper respiratory infection recently. Patient has been experiencing increasing shortness of breath and tight feeling across the chest. Patient was recently seen by automatic operator. Patient came to the emergency room because of the symptoms. Chest x-ray showed chronic changes without any acute abnormalities. However her proBNP is elevated. Patient was started on steroids and also IV Lasix. She claims she is feeling better today. Her EKG showed sinus rhythm without acute changes. We'll continue with current medications. Apparently the dose of the metoprolol was adjusted by automatic operator. It appears that her heart rate was higher at the time. Most probably patient was in atrial fibrillation with a rapid rate but currently appears to be in sinus rhythm. The possibility of underlying ischemic heart disease needs also be considered. I will get an echocardiogram to assess LV function. We'll also empirically add oral nitrates. Review of Systems As per the chart Past Medical History Past Medical History: Atrial Fibrillation, Cancer, Heart Failure, COPD, Hypertension, Osteoarthritis (OA) Additional Past Medical History / Comment(s): skin cancer on scalp, macular degeneration History of Any Multi-Drug Resistant Organisms: None Reported Past Surgical History: Hernia Repair, Pacemaker, Tonsillectomy Additional Past Surgical History / Comment(s): skin cancer removed from scalp, andrew cataracts Past Anesthesia/Blood Transfusion Reactions: No Reported Reaction Type of Cardiac Device: Permanent Pacemaker Device Placement Date:: 2017 Past Psychological History: No Psychological Hx Reported Smoking Status: Former smoker Past Alcohol Use History: Occasional Additional Past Alcohol Use History / Comment(s): quit smoking 12yrs ago, started smoking age 23, < 1/2 PPD Past Drug Use History: None Reported - Past Family History Father Additional Family Medical History / Comment(s): heart issues Mother Family Medical History: Cancer Additional Family Medical History / Comment(s): Pancreatic [place]. Medications and Allergies Home Medications Medication Instructions Recorded Confirmed Type Aspirin 81 mg PO DAILY 01/18/15 06/01/18 History Vit C/E/Zn/Coppr/Lutein/Zeaxan 1 cap PO BID 01/18/15 06/01/18 History [Preservision Areds 2 Softgel] Budesonide/Formoterol Fumarate 1 puff INHALATION RT-BID 08/07/17 06/01/18 History [Symbicort 160-4.5 Mcg Inhaler] Apixaban [Eliquis] 2.5 mg PO BID tablet 08/11/17 06/01/18 Rx Diltiazem Cd [Cardizem CD] 240 mg PO DAILY #30 cap.er.24h 08/11/17 06/01/18 Rx Famotidine [Pepcid] 20 mg PO BID 10/23/17 06/01/18 History Potassium Chloride [Klor-Con 10] 10 meq PO BID 10/23/17 06/01/18 History Cholecalciferol [Vitamin D3] 2,000 unit PO DAILY 11/14/17 06/01/18 History Albuterol Nebulized [Ventolin 2.5 mg INHALATION RT-QID PRN 06/01/18 06/01/18 History Nebulized] Calcium Carbonate [Calcium] 600 mg PO DAILY 06/01/18 06/01/18 History Furosemide [Lasix] 20 mg PO DAILY@0900 06/01/18 06/01/18 History Furosemide [Lasix] 20 mg PO MOWEFR@2100 06/01/18 06/01/18 History Losartan [Cozaar] 25 mg PO DAILY 06/01/18 06/01/18 History Metoprolol Tartrate [Lopressor] 50 mg PO BID 06/01/18 06/01/18 History predniSONE 2.5 mg PO DAILY 06/01/18 06/01/18 History Allergies Allergy/AdvReac Type Severity Reaction Status Date / Time shellfish derived [Shellfish] Allergy Nausea & Verified 06/01/18 17:02 Vomiting & Diarrhea Sulfa (Sulfonamide Allergy Unknown Verified 06/01/18 17:02 Antibiotics) Childhood Physical Exam Vitals: Vital Signs Temp Pulse Pulse Resp BP BP Pulse Ox 06/02/18 09:03 97.8 F 82 16 168/79 96 06/02/18 08:48 76 06/02/18 08:39 76 06/02/18 04:00 80 17 160/74 95 06/02/18 00:37 72 06/02/18 00:28 72 06/02/18 00:00 72 20 131/69 94 L 06/01/18 21:52 73 18 142/87 94 L 06/01/18 21:19 75 06/01/18 21:00 74 11/29/18 20:26 97.7 F 79 20 163/69 95 06/01/18 19:42 75 18 141/76 98 06/01/18 17:40 73 26 H 131/73 92 L 06/01/18 16:54 68 06/01/18 16:33 65 06/01/18 16:03 24 06/01/18 14:22 97.9 F 75 18 152/78 97 Intake and Output 06/01/18 06/02/18 06/02/18 22:59 06:59 14:59 Intake Total 240 Output Total 350 Balance -350 240 Intake: Oral 240 Output: Urine 350 Other: Voiding Method Toilet Toilet Weight 79.9 kg 80.4 kg GENERAL EXAM: Patient is alert and oriented and doesn't appear to be in any acute distress HEENT: Normocephalic. Normal reaction of pupils, equal size, normal range of extraocular motion. No erythema or exudates in the throat. NECK: No masses, no nuchal rigidity. CHEST: No chest wall deformity. LUNGS: Bilateral expiratory wheezing HEART: S1 and S2 normal. Distant heart sounds ABDOMEN: No hepatosplenomegaly, normal bowel sounds, no guarding or rigidity. SKIN: No rashes CENTRAL NERVOUS SYSTEM: No focal deficits. EXTREMITIES: No cyanosis, clubbing or edema. Results 06/01/18 14:44 06/01/18 14:44 Cardiac Enzymes 06/01/18 06/01/18 06/01/18 Range/Units 14:44 14:44 20:50 AST 121 H (14-36) U/L CK-MB (CK-2) 2.1 (0.0-2.4) ng/mL Troponin I <0.012 <0.012 (0.000-0.034) ng/mL 06/02/18 Range/Units 02:49 AST (14-36) U/L CK-MB (CK-2) (0.0-2.4) ng/mL Troponin I <0.012 (0.000-0.034) ng/mL Coagulation 06/01/18 06/01/18 06/02/18 Range/Units 14:44 23:21 02:49 PT 10.3 (9.0-12.0) sec APTT 27.8 55.7 H 54.3 H (22.0-30.0) sec Lipids 06/02/18 Range/Units 02:49 Triglycerides 76 (<150) mg/dL Cholesterol 173 (<200) mg/dL HDL Cholesterol 86 H (40-60) mg/dL CBC 06/01/18 Range/Units 14:44 WBC 9.4 (3.8-10.6) k/uL RBC 4.92 (3.80-5.40) m/uL Hgb 14.3 (11.4-16.0) gm/dL Hct 44.4 (34.0-46.0) % Plt Count 190 (150-450) k/uL Comprehensive Metabolic Panel 06/01/18 Range/Units 14:44 Sodium 138 (137-145) mmol/L Potassium 4.1 (3.5-5.1) mmol/L Chloride 103 (98-107) mmol/L Carbon Dioxide 28 (22-30) mmol/L BUN 21 H (7-17) mg/dL Creatinine 1.07 H (0.52-1.04) mg/dL Glucose 147 H (74-99) mg/dL Calcium 8.5 (8.4-10.2) mg/dL AST 121 H (14-36) U/L ALT 106 H (9-52) U/L Alkaline Phosphatase 81 (38-126) U/L Total Protein 5.8 L (6.3-8.2) g/dL Albumin 3.5 (3.5-5.0) g/dL Current Medications Generic Name Dose Route Start Last Admin Trade Name Freq PRN Reason Stop Dose Admin Albuterol/Ipratropium 3 ml 06/01/18 20:00 06/02/18 08:39 Duoneb 0.5 Mg-3 Mg/3 Ml Soln INHALATION 3 ml RT-Q4H RODRICK Administration Aspirin 325 mg 06/02/18 09:00 06/02/18 09:01 Aspirin PO 325 mg DAILY RODRICK Administration Furosemide 20 mg 06/01/18 21:00 06/02/18 09:01 Lasix IV 20 mg Q12HR RODRICK Administration Heparin Sodium/Sodium Chloride 500 mls @ 18.94 mls/hr 06/01/18 17:15 17:50 25,000 unit/ Sodium Chloride IV 12 units/kg/hr .Q24H RODRICK 18.94 mls/hr Administration Protocol 12 UNITS/KG/HR Insulin Aspart 0 unit 06/02/18 07:30 06/02/18 06:40 Novolog SQ 3 unit ACHS RODRICK Administration Protocol Methylprednisolone Sodium Succinate 40 mg 06/02/18 00:00 06/02/18 05:40 Solu-Medrol IV 40 mg Q6HR RODRICK Administration Intake and Output 06/01/18 06/02/18 06/02/18 22:59 06:59 14:59 Intake Total 240 Output Total 350 Balance -350 240 Intake: Oral 240 Output: Urine 350 Other: Voiding Method Toilet Toilet Weight 79.9 kg 80.4 kg 06/01/18 14:44 06/01/18 14:44 EKG Interpretations (text) Sinus rhythm Assessment and Plan (1) Paroxysmal atrial fibrillation Current Visit: Yes Status: Acute Code(s): I48.0 - PAROXYSMAL ATRIAL FIBRILLATION SNOMED Code(s): 849335075 (2) Acute exacerbation of chronic obstructive pulmonary disease (COPD) Current Visit: Yes Status: Acute Code(s): J44.1 - CHRONIC OBSTRUCTIVE PULMONARY DISEASE W (ACUTE) EXACERBATION SNOMED Code(s): 012910513 (3) CHF exacerbation Current Visit: Yes Status: Acute Code(s): I50.9 - HEART FAILURE, UNSPECIFIED SNOMED Code(s): 29661552 (4) Sick sinus syndrome Current Visit: No Status: Acute Code(s): I49.5 - SICK SINUS SYNDROME SNOMED Code(s): 50533508 (5) Presence of permanent cardiac pacemaker Current Visit: Yes Status: Acute Code(s): Z95.0 - PRESENCE OF CARDIAC PACEMAKER SNOMED Code(s): 657243471 Plan: We will continue with IV diuretics. Continue beta blockers. She is also on steroids. We will get an echocardiogram done. I will add oral nitrates. Further recommendation will depend upon the clinical course.
[2018-06-02] MEDS: DILTIAZEM CD 240 MG CAP.ER.24H PO SCH (10:35)
[2018-06-02] MEDS: APIXABAN 2.5 MG TABLET PO SCH ×2 (10:35→20:43)
[2018-06-02 11:16] VITALS: BMI 29.5
[2018-06-02 11:21] LABS: Glucose,Whole Blood 218 mg/dL (75-99)
--- NOTE | 2018-06-02 13:38 | P.HPIM ---
History of Present Illness H&P Date: 06/02/18 This is an 87-year-old occasion female patient of Dr. 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 Patient states that yesterday she woke up with difficulty in breathing and use her inhaler. She went out for lunch and developed indigestion and her breathing also combative the same time she developed discomfort across her chest that felt like a belt was tight. She is complaining of wheezing. She denies any edema, and no diarrhea or constipation. She does states she is tired often. She recently had beta tai increased by her farm consultant has her heart rate was running high. She states that she has also been told to take an extra metoprolol during the day when she feels her heart racing. The patient came in for evaluation of [facility] emergency center. Chest x-ray showed chronic changes without any acute abnormalities. ProBNP 5370, troponins of the negative on 3 draws. Triglycerides 76, cholesterol 173, LDL 72 and HDL 86. Hemoglobin 14.3, creatinine 1.07. AST 121 and ALT 106. EKG was a sinus rhythm with mild ST depression in V5 and V6. Patient was started on DuoNeb treatments, IV Solu-Medrol and IV Lasix and admitted to the cardiac stepdown unit. Cardiology consult requested. Patient has been seen by Dr. Means an echocardiogram and Imdur added. Patient states that she is feeling much improved during this evaluation. Review of Systems All systems: negative Constitutional: Reports fatigue, Denies chills, Denies fever, Denies poor appetite, Denies sweats, Denies weakness, Denies weight loss Eyes: denies blurred vision, denies pain Ears, nose, mouth and throat: Denies dysphagia, Denies headache, Denies hoarseness, Denies sore throat, Denies vertigo Cardiovascular: Reports chest pain, Reports decreased exercise tolerance, Reports dyspnea on exertion, Reports palpitations, Denies edema, Denies leg edema, Denies lightheadedness, Denies shortness of breath, Denies syncope Respiratory: Reports cough, Reports dyspnea, Reports wheezing, Denies cough with sputum, Denies excessive sputum, Denies hemoptysis, Denies home oxygen Gastrointestinal: Reports heartburn, Denies abdominal pain, Denies diarrhea, Denies nausea, Denies vomiting Genitourinary: Denies dysuria, Denies hematuria Musculoskeletal: Denies frequent falls, Denies myalgias Integumentary: Denies pruritus, Denies rash, Denies wounds Neurological: Denies change in mentation, Denies change in speech, Denies convulsions, Denies head injury, Denies headaches, Denies numbness, Denies weakness Psychiatric: Denies anxiety, Denies depression Endocrine: Denies fatigue, Denies weight change Past Medical History Past Medical History: Atrial Fibrillation, Cancer, Heart Failure, COPD, Hypertension, Osteoarthritis (OA) Additional Past Medical History / Comment(s): skin cancer on scalp, macular degeneration History of Any Multi-Drug Resistant Organisms: None Reported Past Surgical History: Hernia Repair, Pacemaker, Tonsillectomy Additional Past Surgical History / Comment(s): skin cancer removed from scalp, andrew cataracts Past Anesthesia/Blood Transfusion Reactions: No Reported Reaction Type of Cardiac Device: Permanent Pacemaker Device Placement Date:: 2017 Past Psychological History: No Psychological Hx Reported Smoking Status: Former smoker Past Alcohol Use History: Occasional Additional Past Alcohol Use History / Comment(s): Patient states that she was a smoker less than a pack a day for 20-30 years and quit 10 years ago. She denies any illicit drug use or alcohol use. Past Drug Use History: None Reported - Past Family History Father Additional Family Medical History / Comment(s): heart issues Mother Family Medical History: Cancer Additional Family Medical History / Comment(s): Pancreatic CA. Medications and Allergies Home Medications Medication Instructions Recorded Confirmed Type Aspirin 81 mg PO DAILY 01/18/15 06/01/18 History Vit C/E/Zn/Coppr/Lutein/Zeaxan 1 cap PO BID 01/18/15 06/01/18 History [Preservision Areds 2 Softgel] Budesonide/Formoterol Fumarate 1 puff INHALATION RT-BID 08/07/17 06/01/18 History [Symbicort 160-4.5 Mcg Inhaler] Apixaban [Eliquis] 2.5 mg PO BID tablet 08/11/17 06/01/18 Rx Diltiazem Cd [Cardizem CD] 240 mg PO DAILY #30 cap.er.24h 08/11/17 06/01/18 Rx Famotidine [Pepcid] 20 mg PO BID 10/23/17 06/01/18 History Potassium Chloride [Klor-Con 10] 10 meq PO BID 10/23/17 06/01/18 History Cholecalciferol [Vitamin D3] 2,000 unit PO DAILY 11/14/17 06/01/18 History Albuterol Nebulized [Ventolin 2.5 mg INHALATION RT-QID PRN 06/01/18 06/01/18 History Nebulized] Calcium Carbonate [Calcium] 600 mg PO DAILY 06/01/18 06/01/18 History Furosemide [Lasix] 20 mg PO DAILY@0900 06/01/18 06/01/18 History Furosemide [Lasix] 20 mg PO MOWEFR@2100 06/01/18 06/01/18 History Losartan [Cozaar] 25 mg PO DAILY 06/01/18 06/01/18 History Metoprolol Tartrate [Lopressor] 50 mg PO BID 06/01/18 06/01/18 History predniSONE 2.5 mg PO DAILY 06/01/18 06/01/18 History Allergies Allergy/AdvReac Type Severity Reaction Status Date / Time shellfish derived [Shellfish] Allergy Nausea & Verified 06/01/18 17:02 Vomiting & Diarrhea Sulfa (Sulfonamide Allergy Unknown Verified 06/01/18 17:02 Antibiotics) Childhood Physical Exam Vitals: Vital Signs Temp Pulse Pulse Resp BP BP Pulse Ox 06/02/18 09:03 97.8 F 82 16 168/79 96 06/02/18 08:48 76 06/02/18 08:39 76 06/02/18 04:00 80 17 160/74 95 06/02/18 00:37 72 06/02/18 00:28 72 06/02/18 00:00 72 20 131/69 94 L 06/01/18 21:52 73 18 142/87 94 L 06/01/18 21:19 75 06/01/18 21:00 74 06/01/18 20:26 97.7 F 79 20 163/69 95 06/01/18 19:42 75 18 141/76 98 06/01/18 17:40 73 26 H 131/73 92 L 06/01/18 16:54 68 06/01/18 16:33 65 06/01/18 16:03 24 06/01/18 14:22 97.9 F 75 18 152/78 97 Intake and Output 06/01/18 06/02/18 06/02/18 22:59 06:59 14:59 Intake Total 240 Output Total 350 Balance -350 240 Intake: Oral 240 Output: Urine 350 Other: Voiding Method Toilet Toilet Weight 79.9 kg 80.4 kg Gen: This is an 87-year-old female. She is sitting on the edge of her bed and appears to be in no acute distress. HEENT: Head is atraumatic, normocephalic. Pupils equal, round. Sclerae is anicteric. NECK: Supple. No JVD. No lymphadenopathy. No thyromegaly. LUNGS: Bilateral mild expiratory wheeze. No rhonchi. No intercostal retractions. HEART: Regular rate and rhythm. No murmur. ABDOMEN: Soft. Bowel sounds are present. No masses. No tenderness. EXTREMITIES: No pedal edema. No calf tenderness. NEUROLOGICAL: Patient is awake, alert and oriented x3. Cranial nerves 2 through 12 are grossly intact. - Constitutional General appearance: average body habitus, cooperative, no mild distress, no no acute distress, no severe distress - EENT Eyes: no anicteric sclerae, dentition normal, normal appearance - Neck Neck: no lymphadenopathy, no normal ROM, no rigidity, no thyromegaly - Cardiovascular Rhythm: regular Heart sounds: normal: S1, S2 Abnormal Heart Sounds: no systolic murmur, no diastolic murmur - Gastrointestinal General gastrointestinal: no absent bowel sounds, no hyperactive bowel sounds, normal bowel sounds, soft, no tenderness - Integumentary Integumentary: no cellulitis, no jaundiced, normal, normal turgor - Neurologic Neurologic: CNII-XII intact - Musculoskeletal Musculoskeletal: strength equal bilaterally - Psychiatric Psychiatric: A&O x's 3, appropriate affect, intact judgment & insight Results CBC & Chem 7: 06/01/18 14:44 06/01/18 14:44 Labs: Abnormal Lab Results - Last 24 Hours (Table) 06/01/18 06/01/18 06/01/18 Range/Units 14:44 14:44 23:21 Neutrophils # 7.8 H (1.3-7.7) k/uL APTT 55.7 H (22.0-30.0) sec BUN 21 H (7-17) mg/dL Creatinine 1.07 H (0.52-1.04) mg/dL Glucose 147 H (74-99) mg/dL POC Glucose (mg/dL) (75-99) mg/dL AST 121 H (14-36) U/L ALT 106 H (9-52) U/L Total Protein 5.8 L (6.3-8.2) g/dL HDL Cholesterol (40-60) mg/dL 06/02/18 06/02/18 06/02/18 Range/Units 02:49 02:49 05:52 Neutrophils # (1.3-7.7) k/uL APTT 54.3 H (22.0-30.0) sec BUN (7-17) mg/dL Creatinine (0.52-1.04) mg/dL Glucose (74-99) mg/dL POC Glucose (mg/dL) 168 H (75-99) mg/dL AST (14-36) U/L ALT (9-52) U/L Total Protein (6.3-8.2) g/dL HDL Cholesterol 86 H (40-60) mg/dL Thrombosis Risk Factor Assmnt - DVT/VTE Prophylaxis DVT/VTE Prophylaxis: Pharmacologic Prophylaxis ordered - Choose All That Apply Each Factor Represents 1 point: Abnormal pulmonary function (COPD), Obesity ( BMI >25) Other Risk Factors: Yes Each Risk Factor Represents 3 Points: Age 75 years or older Other congenital or acquired thrombophilia - If yes, enter type in comment: No Thrombosis Risk Factor Assessment Total Risk Factor Score: 5 Thrombosis Risk Factor Assessment Level: High Risk Assessment and Plan Plan: 1. Dyspnea secondary to moderately severe COPD, acute on chronic diastolic heart failure and possibly related to episodes of A. fib with RVR. Component of coronary artery disease not ruled out. Patient started on Imdur 50 mg daily. Cardiology consult appreciated. 2. Acute COPD exacerbation. Continue DuoNeb treatments every 4 hours, Solu- Medrol 40 mg every 12 hours, Symbicort 1 puff twice daily 3. Acute on chronic diastolic heart failure. Cardiology consult is appreciated. Continue IV Lasix 20 mg every 12 hours, I&O and daily weights. Monitor electrolytes and renal function. 4. Paroxysmal atrial fibrillation. Continue Cardizem 250 mg daily, eliquis 2.5 mg twice daily, Lopressor will be changed to 25 mg 3 times daily. 5. Hypertension. Continue losartan 25 mg daily, Lopressor, Cardizem, Imdur. 6. DVT prophylaxis. Eliquis. 7. GI prophylaxis. Pepcid. Patient will be admitted to the hospital for a minimum of 2 night stay. Discharge plan: Return home on Tuesday Impression and plan of care have been directed as dictated by the signing physician. Noelle Gilbert nurse practitioner acting as scribe for signing physician.
[2018-06-02] MEDS: METOPROLOL TARTRATE 25 MG TAB PO SCH ×2 (16:38→20:44)
[2018-06-02 16:45] LABS: Glucose,Whole Blood 191 mg/dL (75-99)
[2018-06-02] MEDS: SYMBICORT 160-4.5 MCG INHALER INHALATION SCH (19:43)
[2018-06-02] MEDS: POTASSIUM CHLORIDE ER 10 MEQ TAB.ER.PRT PO SCH (20:43)
[2018-06-02] MEDS: VIT A,C & E-LUTEIN-MINERALS 1 EACH TAB PO SCH (20:44)
[2018-06-02 20:54] LABS: Glucose,Whole Blood 176 mg/dL (75-99)
[2018-06-02] MEDS ORDERED: METOPROLOL TARTRATE 50 MG TAB PO SCH (21:00)
[2018-06-02] MEDS ORDERED: FAMOTIDINE 20 MG TAB PO SCH ×2 (21:00)
[2018-06-03 00:40] VITALS: TEMP 97.6
[2018-06-03] MEDS: IPRATROPIUM-ALBUTEROL 3 ML NEB INHALATION SCH ×2 (03:38→08:17)
[2018-06-03 06:27] LABS: Glucose,Whole Blood 159 mg/dL (75-99)
[2018-06-03] MEDS: INSULIN ASPART 100 UNIT/ML 1 ML 10 ML VIAL SQ SCH (06:42)
[2018-06-03] MEDS: SYMBICORT 160-4.5 MCG INHALER INHALATION SCH (08:17)
[2018-06-03 08:31] VITALS: PULSE 82
[2018-06-03] MEDS: methylPREDNISolone SOD SUCCI 40 MG/ML 1 ML VIAL IV SCH (08:48)
[2018-06-03] MEDS: FUROSEMIDE 10 MG/ML 2 ML VIAL IV SCH (08:51)
[2018-06-03] MEDS: APIXABAN 2.5 MG TABLET PO SCH (08:53)
[2018-06-03] MEDS: VIT A,C & E-LUTEIN-MINERALS 1 EACH TAB PO SCH (08:53)
[2018-06-03] MEDS: POTASSIUM CHLORIDE ER 10 MEQ TAB.ER.PRT PO SCH (08:53)
[2018-06-03] MEDS: METOPROLOL TARTRATE 25 MG TAB PO SCH (08:53)
[2018-06-03] MEDS: DILTIAZEM CD 240 MG CAP.ER.24H PO SCH (08:54)
[2018-06-03] MEDS ORDERED: ISOSORBIDE MONONITRATE ER 15 MG TAB PO SCH (09:00)
[2018-06-03] MEDS ORDERED: LOSARTAN 25 MG TAB PO SCH (09:00)
[2018-06-03] MEDS ORDERED: ASPIRIN 81 MG PO SCH (09:00)
[2018-06-03 09:26] VITALS: BP 130/62; RESP 20
--- NOTE | 2018-06-03 10:34 | P.DS ---
Providers Date of admission: 06/01/18 18:22 Expected date of discharge: 06/03/18 Attending physician: Reina Sanches MD Consults: 06/01/18 17:05 Consult Physician Urgent Consulting Provider: Josh Pina Consult Reason/Comments: CHF, dyspnea Do you want consulting provider notified?: Yes Primary care physician: Phoenix Gutiérrez [facility] Course: This is an 87-year-old occasion female patient of Dr. 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 Patient states that yesterday she woke up with difficulty in breathing and use her inhaler. She went out for lunch and developed indigestion and her breathing also combative the same time she developed discomfort across her chest that felt like a belt was tight. She is complaining of wheezing. She denies any edema, and no diarrhea or constipation. She does states she is tired often. She recently had beta tai increased by her optical goods worker has her heart rate was running high. She states that she has also been told to take an extra metoprolol during the day when she feels her heart racing. The patient came in for evaluation of [facility] emergency center. Chest x-ray showed chronic changes without any acute abnormalities. ProBNP 5370, troponins of the negative on 3 draws. Triglycerides 76, cholesterol 173, LDL 72 and HDL 86. Hemoglobin 14.3, creatinine 1.07. AST 121 and ALT 106. EKG was a sinus rhythm with mild ST depression in V5 and V6. Patient was started on DuoNeb treatments, IV Solu-Medrol and IV Lasix and admitted to the cardiac stepdown unit. Cardiology consult requested. Patient has been seen by Dr. Means an echocardiogram and Imdur added. Patient states that she is feeling much improved during this evaluation. 06/03: Patient states that her breathing status is doing quite well this morning. She has been seen by Dr. Pina this morning. We will plan to change her medications over to oral and discharged home today in stable condition. Patient will continue steroid taper at home as well. She is on a Dosing of the Lopressor 25 mg 3 times daily. Discharge diagnoses: 1. Dyspnea secondary to moderately severe COPD, acute on chronic diastolic heart failure and possibly related to episodes of A. fib with RVR. Component of coronary artery disease not ruled out. 2. Acute COPD exacerbation. 3. Acute on chronic diastolic heart failure. 4. Paroxysmal atrial fibrillation. 5. Hypertension. Discharge plan: Return home Impression and plan of care have been directed as dictated by the signing physician. Noelle Gilbert nurse practitioner acting as scribe for signing physician. Patient Condition at Discharge: Good Plan - Discharge Summary Discharge Rx Participant: No New Discharge Prescriptions: New Isosorbide Mononitrate ER [Imdur] 15 mg PO DAILY #30 dose Metoprolol Tartrate [Lopressor] 25 mg PO TID #90 tab predniSONE 0 mg PO DIRECTED #30 tab Continue Aspirin 81 mg PO DAILY Vit C/E/Zn/Coppr/Lutein/Zeaxan [Preservision Areds 2 Softgel] 1 cap PO BID Budesonide/Formoterol Fumarate [Symbicort 160-4.5 Mcg Inhaler] 1 puff INHALATION RT-BID Apixaban [Eliquis] 2.5 mg PO BID tablet Diltiazem Cd [Cardizem CD] 240 mg PO DAILY #30 cap.er.24h Famotidine [Pepcid] 20 mg PO BID Potassium Chloride [Klor-Con 10] 10 meq PO BID Cholecalciferol [Vitamin D3] 2,000 unit PO DAILY Albuterol Nebulized [Ventolin Nebulized] 2.5 mg INHALATION RT-QID PRN PRN Reason: Shortness Of Breath predniSONE 2.5 mg PO DAILY Losartan [Cozaar] 25 mg PO DAILY Calcium Carbonate [Calcium] 600 mg PO DAILY Furosemide [Lasix] 20 mg PO MOWEFR@2100 Furosemide [Lasix] 20 mg PO DAILY@0900 Discontinued Metoprolol Tartrate [Lopressor] 50 mg PO BID Discharge Medication List Aspirin 81 mg PO DAILY 01/18/15 [History] Vit C/E/Zn/Coppr/Lutein/Zeaxan [Preservision Areds 2 Softgel] 1 cap PO BID 01/18 [History] Budesonide/Formoterol Fumarate [Symbicort 160-4.5 Mcg Inhaler] 1 puff INHALATION RT-BID 08/07/17 [History] Apixaban [Eliquis] 2.5 mg PO BID tablet 08/11/17 [Rx] Diltiazem Cd [Cardizem CD] 240 mg PO DAILY #30 cap.er.24h 08/11/17 [Rx] Famotidine [Pepcid] 20 mg PO BID 10/23/17 [History] Potassium Chloride [Klor-Con 10] 10 meq PO BID 10/23/17 [History] Cholecalciferol [Vitamin D3] 2,000 unit PO DAILY 11/14/17 [History] Albuterol Nebulized [Ventolin Nebulized] 2.5 mg INHALATION RT-QID PRN 06/01/18 [ History] Calcium Carbonate [Calcium] 600 mg PO DAILY 06/01/18 [History] Furosemide [Lasix] 20 mg PO DAILY@0900 06/01/18 [History] Furosemide [Lasix] 20 mg PO MOWEFR@2100 06/01/18 [History] Losartan [Cozaar] 25 mg PO DAILY 06/01/18 [History] predniSONE 2.5 mg PO DAILY 06/01/18 [History] Isosorbide Mononitrate ER [Imdur] 15 mg PO DAILY #30 dose 06/03/18 [Rx] Metoprolol Tartrate [Lopressor] 25 mg PO TID #90 tab 06/03/18 [Rx] predniSONE 0 mg PO DIRECTED #30 tab 06/03/18 [Rx] Follow up Appointment(s)/Referral(s): Phoenix Gutiérrez MD [Primary Care Provider] - 1-2 days
== END 2018-06-03 12:05 | disposition home or self-care (01) ==
LOC: EC 14:17 → 3SCARD 18:22
PROVIDERS: ADMIT Internal Medicine; ATTEND Internal Medicine
DX: J44.1 Chronic obstructive pulmonary disease with (acute) exacerbation (principal); I48.0 Paroxysmal atrial fibrillation; I11.0 Hypertensive heart disease with heart failure; I50.33 Acute on chronic diastolic (congestive) heart failure; M19.90 Unspecified osteoarthritis, unspecified site; I27.20 Pulmonary hypertension, unspecified; H35.30 Unspecified macular degeneration; Z85.828 Personal history of other malignant neoplasm of skin; Z98.42 Cataract extraction status, left eye; Z98.41 Cataract extraction status, right eye; Z79.01 Long term (current) use of anticoagulants; Z79.51 Long term (current) use of inhaled steroids; Z79.82 Long term (current) use of aspirin; Z79.899 Other long term (current) drug therapy; Z95.0 Presence of cardiac pacemaker; Z80.0 Family history of malignant neoplasm of digestive organs; Z87.891 Personal history of nicotine dependence; Z79.52 Long term (current) use of systemic steroids; Z88.2 Allergy status to sulfonamides; Z91.013 Allergy to seafood
CPT/HCPCS: 96376 ×4; 96366 ×3; 96365; 96375; 99285; 36415; 94640 ×6; 93005; 83880; 80061; 80053; 82550; 82553; 84484 ×2; 85025; 85610; 85730 ×2; 71046; G0378 ×3; J1644 ×2; J1940 ×3; J2920 ×3; J2930

== ENCOUNTER 2018-06-18 05:25 | Inpatient (IN) | payer MEDICARE ==
[2018-06-18] MEDS ORDERED: ASPIRIN 81 MG PO STA (05:42)
[2018-06-18] MEDS ORDERED: DILTIAZEM DRIP BOLUS FROM BAG 1 MG SOLN IV ONE (05:43)
--- NOTE | 2018-06-18 05:46 | ED ---
SOB HPI - General Chief Complaint: Shortness of Breath Stated Complaint: SOB Time Seen by Provider: 06/18/18 05:42 Source: patient Mode of arrival: ambulatory Limitations: no limitations - History of Present Illness Initial Comments: Zehra is an 87-year-old female history CHF, COPD and heart failure presents the ED today with complaint of difficulty breathing. She reports she woke this morning feeling palpitations and difficulty breathing. Upon arrival she was noted be hypoxic, tachycardic with 1-2 word dyspnea limited further history. - Related Data Home Medications Medication Instructions Recorded Confirmed Aspirin 81 mg PO DAILY 01/18/15 06/18/18 Vit C/E/Zn/Coppr/Lutein/Zeaxan 1 cap PO BID 01/18/15 06/18/18 [Preservision Areds 2 Softgel] Budesonide/Formoterol Fumarate 1 puff INHALATION RT-BID 08/07/17 06/18/18 [Symbicort 160-4.5 Mcg Inhaler] Famotidine [Pepcid] 20 mg PO BID 10/23/17 06/18/18 Potassium Chloride [Klor-Con 10] 10 meq PO DAILY 10/23/17 06/18/18 Cholecalciferol [Vitamin D3] 2,000 unit PO DAILY 11/14/17 06/18/18 Albuterol Nebulized [Ventolin 2.5 mg INHALATION RT-QID PRN 06/01/18 06/18/18 Nebulized] Calcium Carbonate [Calcium] 600 mg PO DAILY 06/01/18 06/18/18 Furosemide [Lasix] 20 mg PO DAILY@0900 06/01/18 06/18/18 Furosemide [Lasix] 20 mg PO MOWEFR@2100 06/01/18 06/18/18 Losartan [Cozaar] 25 mg PO DAILY 06/01/18 06/18/18 predniSONE 2.5 mg PO DAILY 06/01/18 06/18/18 Potassium Chloride [Klor-Con 10] 10 meq PO MOWEFR 06/18/18 06/18/18 Previous Rx's Medication Instructions Recorded Apixaban [Eliquis] 2.5 mg PO BID tablet 08/11/17 Diltiazem Cd [Cardizem CD] 240 mg PO DAILY #30 cap.er.24h 08/11/17 Isosorbide Mononitrate ER [Imdur] 15 mg PO DAILY #30 dose 06/03/18 Metoprolol Tartrate [Lopressor] 25 mg PO TID #90 tab 06/03/18 Allergies Allergy/AdvReac Type Severity Reaction Status Date / Time shellfish derived [Shellfish] Allergy Nausea & Verified 06/18/18 07:56 Vomiting & Diarrhea Sulfa (Sulfonamide Allergy Unknown Verified 06/18/18 07:56 Antibiotics) Childhood Review of Systems ROS Statement: Those systems with pertinent positive or pertinent negative responses have been documented in the HPI. ROS Other: All systems not noted in ROS Statement are negative. Past Medical History Past Medical History: Atrial Fibrillation, Cancer, Heart Failure, COPD, Hypertension, Osteoarthritis (OA) Additional Past Medical History / Comment(s): skin cancer on scalp, macular degeneration History of Any Multi-Drug Resistant Organisms: None Reported Past Surgical History: Hernia Repair, Pacemaker, Tonsillectomy Additional Past Surgical History / Comment(s): skin cancer removed from scalp, andrew cataracts Past Anesthesia/Blood Transfusion Reactions: No Reported Reaction Type of Cardiac Device: Permanent Pacemaker Device Placement Date:: 2017 Past Psychological History: No Psychological Hx Reported Smoking Status: Former smoker Past Alcohol Use History: Occasional Past Drug Use History: None Reported - Past Family History Father Additional Family Medical History / Comment(s): heart issues Mother Family Medical History: Cancer Additional Family Medical History / Comment(s): Pancreatic CA. General Exam - General Exam Comments Initial Comments: Physical Exam GENERAL: in moderate respiratory distress HENT: Normocephalic, Atraumatic. EYES: PERRL, EOMI PULMONARY: Wheezing in all lung cotto Crackles in bilateral bases CARDIOVASCULAR: Tachycardic, irregularly irregular ABDOMEN: Soft and nontender with normal bowel sounds. SKIN: Skin is clear with no lesions or rashes and otherwise unremarkable. : Deferred NEUROLOGIC: Patient is alert and oriented x3. Moving all extremities spontaneously MUSCULOSKELETAL: Normal extremities with adequate strength and full range of motion. No lower extremity swelling or edema. No calf tenderness. PSYCHIATRIC: Normal psychiatric evaluation. Limitations: no limitations Limitations: no limitations Course Vital Signs 06/18/18 06/18/18 06/18/18 05:32 05:53 06:00 Temperature 98.0 F Pulse Rate 132 H 149 H Respiratory 28 H 32 H Rate Blood Pressure 178/115 172/115 O2 Sat by Pulse 86 L 100 93 L Oximetry 06/18/18 06/18/18 06/18/18 06:30 06:54 07:00 Temperature Pulse Rate 149 H 133 H 141 H Respiratory 31 H 24 Rate Blood Pressure 156/109 121/91 121/91 O2 Sat by Pulse 98 98 98 Oximetry 06/18/18 06/18/18 07:30 08:00 Temperature Pulse Rate 140 H 122 H Respiratory 21 23 Rate Blood Pressure 130/85 147/106 O2 Sat by Pulse 98 98 Oximetry Medical Decision Making - Medical Decision Making She was seen and evaluated immediately upon arrival to the emergency department patient is in moderate respiratory distress, she is wheezing well as crackles. At this time we will hold off on DuoNeb therapy due to the profound tachycardia. BiPap was ordered Cardizem ordered for the A. fib with RVR HR only minimally improved with Initial cardizem, cardizem gtt increased Patient care discussed with Dr. Fitzpatrick who recommends admission with treatment for COPD exacerbation with duonebs and steroids, consult to pulmonology, cardiac echo, consult to cardiology. Orders placed. Patient updated. - Lab Data Result diagrams: 06/18/18 05:53 06/18/18 05:53 Lab Results 06/18/18 06/18/18 06/18/18 Range/Units 05:53 05:53 05:53 WBC 13.8 H (3.8-10.6) k/uL RBC 5.00 (3.80-5.40) m/uL Hgb 14.7 (11.4-16.0) gm/dL Hct 45.1 (34.0-46.0) % MCV 90.2 (80.0-100.0) fL MCH 29.4 (25.0-35.0) pg MCHC 32.6 (31.0-37.0) g/dL RDW 15.2 (11.5-15.5) % Plt Count 189 (150-450) k/uL Neutrophils % 79 % Lymphocytes % 12 % Monocytes % 7 % Eosinophils % 1 % Basophils % 1 % Neutrophils # 10.9 H (1.3-7.7) k/uL Lymphocytes # 1.6 (1.0-4.8) k/uL Monocytes # 1.0 (0-1.0) k/uL Eosinophils # 0.1 (0-0.7) k/uL Basophils # 0.1 (0-0.2) k/uL Sodium 134 L (137-145) mmol/L Potassium 4.3 (3.5-5.1) mmol/L Chloride 95 L (98-107) mmol/L Carbon Dioxide 29 (22-30) mmol/L Anion Gap 10 mmol/L BUN 19 H (7-17) mg/dL Creatinine 1.02 (0.52-1.04) mg/dL Est GFR (CKD-EPI)AfAm 58 (>60 ml/min/1.73 sqM) Est GFR (CKD-EPI)NonAf 50 (>60 ml/min/1.73 sqM) Glucose 164 H (74-99) mg/dL Calcium 8.8 (8.4-10.2) mg/dL Magnesium 2.3 (1.6-2.3) mg/dL Total Bilirubin 1.4 H (0.2-1.3) mg/dL AST 27 (14-36) U/L ALT 31 (9-52) U/L Alkaline Phosphatase 56 (38-126) U/L Total Creatine Kinase 63 (30-135) U/L CK-MB (CK-2) 1.0 (0.0-2.4) ng/mL CK-MB (CK-2) Rel Index 1.6 Troponin I <0.012 (0.000-0.034) ng/mL NT-Pro-B Natriuret Pep pg/mL Total Protein 6.3 (6.3-8.2) g/dL Albumin 3.8 (3.5-5.0) g/dL 06/18/18 Range/Units 05:53 WBC (3.8-10.6) k/uL RBC (3.80-5.40) m/uL Hgb (11.4-16.0) gm/dL Hct (34.0-46.0) % MCV (80.0-100.0) fL MCH (25.0-35.0) pg MCHC (31.0-37.0) g/dL RDW (11.5-15.5) % Plt Count (150-450) k/uL Neutrophils % % Lymphocytes % % Monocytes % % Eosinophils % % Basophils % % Neutrophils # (1.3-7.7) k/uL Lymphocytes # (1.0-4.8) k/uL Monocytes # (0-1.0) k/uL Eosinophils # (0-0.7) k/uL Basophils # (0-0.2) k/uL Sodium (137-145) mmol/L Potassium (3.5-5.1) mmol/L Chloride (98-107) mmol/L Carbon Dioxide (22-30) mmol/L Anion Gap mmol/L BUN (7-17) mg/dL Creatinine (0.52-1.04) mg/dL Est GFR (CKD-EPI)AfAm (>60 ml/min/1.73 sqM) Est GFR (CKD-EPI)NonAf (>60 ml/min/1.73 sqM) Glucose (74-99) mg/dL Calcium (8.4-10.2) mg/dL Magnesium (1.6-2.3) mg/dL Total Bilirubin (0.2-1.3) mg/dL AST (14-36) U/L ALT (9-52) U/L Alkaline Phosphatase (38-126) U/L Total Creatine Kinase (30-135) U/L CK-MB (CK-2) (0.0-2.4) ng/mL CK-MB (CK-2) Rel Index Troponin I (0.000-0.034) ng/mL NT-Pro-B Natriuret Pep 5250 pg/mL Total Protein (6.3-8.2) g/dL Albumin (3.5-5.0) g/dL - EKG Data -: EKG Interpreted by Me EKG Comments: KG obtained at 5:49 AM, rate is 156, rhythm is atrial fibrillation with RVR, there is no obvious ST elevations or depressions will plan to repeat when patient's heart rate improves Critical Care Time Critical Care Time: Yes Total Critical Care Time: 30 Disposition Clinical Impression: Congestive heart failure, CHF exacerbation, Acute exacerbation of chronic obstructive pulmonary disease (COPD), Atrial fibrillation with RVR Disposition: ADMITTED IP TO THIS HOSP
[2018-06-18] MEDS ORDERED: DILTIAZEM 50 MG in SODIUM CHLORIDE 0.9% 40 ML IV SCH (06:00)
[2018-06-18 06:11] LABS: Basophils # (A) 0.1 k/uL (0-0.2); Basophils % (A) 1 %; Eosinophils # (A) 0.1 k/uL (0-0.7); Eosinophils % (A) 1 %; HCT 45.1 % (34.0-46.0); HGB 14.7 gm/dL (11.4-16.0); Lymphocytes # (A) 1.6 k/uL (1.0-4.8); Lymphocytes % (A) 12 %; MCH 29.4 pg (25.0-35.0); MCHC 32.6 g/dL (31.0-37.0); MCV 90.2 fL (80.0-100.0); Mean Platelet Volume 7.1; Monocytes % (A) 7 %; Neutrophils # (A) 10.9 k/uL (1.3-7.7); Neutrophils % (A) 79 %; Platelet Count 189 k/uL (150-450); RDW 15.2 % (11.5-15.5); WBC 13.8 k/uL (3.8-10.6)
[2018-06-18 06:25] LABS: INR 1.1 (<1.2); Partial Thromboplastin Time 28.3 sec (22.0-30.0); Prothrombin Time 11.2 sec (9.0-12.0)
[2018-06-18 06:34] LABS: Albumin 3.8 g/dL (3.5-5.0); Calcium 8.8 mg/dL (8.4-10.2); Magnesium 2.3 mg/dL (1.6-2.3); Potassium 4.3 mmol/L (3.5-5.1); Total Bilirubin 1.4 mg/dL (0.2-1.3); Total Protein 6.3 g/dL (6.3-8.2)
[2018-06-18 06:39] LABS: Creatine Kinase 63 U/L (30-135)
[2018-06-18 06:50] LABS: Troponin I <0.012 ng/mL (0.000-0.034)
[2018-06-18] MEDS ORDERED: NITROGLYCERIN SL TABS 0.4 MG TAB SUBLINGUAL PRN (07:49)
[2018-06-18] MEDS ORDERED: IPRATROPIUM-ALBUTEROL 3 ML NEB INHALATION PRN (07:51)
--- NOTE | 2018-06-18 08:09 | XR ---
EXAMINATION TYPE: XR chest 1V portable DATE OF EXAM: 06/18/2018 HISTORY: chest pain. REFERENCE: Previous study dated 06/01/2018. FINDINGS: There is a bipolar pacemaker in place on the left. Lung volumes are prominent. Heart size upper limits of normal. The lungs appear clear. Pleural space are clear. IMPRESSION: 1. COPD. 2. BORDERLINE CARDIOMEGALY.
[2018-06-18] MEDS: methylPREDNISolone SOD SUCCI 125 MG/2 ML VIAL IV SCH ×5 (08:53→23:44)
[2018-06-18] MEDS: FUROSEMIDE 10 MG/ML 4 ML VIAL IV SCH ×2 (11:05→21:20)
--- NOTE | 2018-06-18 13:47 | P.CNPUL ---
History of Present Illness Consult date: 06/18/18 Requesting physician: Maryanne Fitzpatrick Reason for consult: dyspnea, COPD, hypoxemia, abnormal CXR/CT Chief complaint: Acute exacerbation of congestive heart failure History of present illness: This is a 87-year-old female patient of Dr. Gutiérrez, who was brought into the emergency department per EMS on 06/18/2018 at 5:00 in the morning for evaluation of difficulty breathing, patient woke up this morning feeling palpitations and increasing shortness of breath. When EMS arrived patient was hypoxemic, in severe respiratory distress, quite dyspneic even with conversation , and tachycardic. Patient states she had been coming down with a cold, she had some chills, and some congestion and production of green colored sputum for the last couple days Past medical history is significant for chronic atrial fibrillation on Eliquis, advanced COPD with a baseline FEV1 of 0.72 L or 39% predicted, chronic diastolic congestive heart failure, hypertension, osteoarthritis, permanent pacemaker for sick sinus syndrome. Chest x-ray showed COPD, borderline cardiomegaly. EKG showed A. fib RVR with a rate of 156 , ST and T-wave abnormality suggesting inferolateral ischemia, and evidence of a septal infarct of undetermined age. Lab work showed WBC of 13.8, hemoglobin 14.7, sodium of 134, potassium is 4.3, chloride is 95, CO2 is 29, BUN is 19 and creatinine is 1.02, troponin was negative 1, proBNP was elevated at 5250. Patient was started on IV Lasix at 40 mg every 12 hours, she was started on Cardizem drip for rate control. IV steroids and nebulized treatments were started. Review of Systems All systems: negative Constitutional: Denies chills, Denies fever Eyes: denies blurred vision, denies pain Ears, nose, mouth and throat: Denies headache, Denies sore throat Cardiovascular: Reports decreased exercise tolerance, Reports dyspnea on exertion, Reports palpitations, Reports paroxysmal nocturnal dyspnea, Reports rapid heart beat, Denies chest pain, Denies shortness of breath Respiratory: Reports dyspnea, Denies cough Gastrointestinal: Denies abdominal pain, Denies diarrhea, Denies nausea, Denies vomiting Genitourinary: Denies dysuria, Denies hematuria Musculoskeletal: Denies myalgias Integumentary: Denies pruritus, Denies rash Neurological: Denies numbness, Denies weakness Psychiatric: Denies anxiety, Denies depression Endocrine: Denies fatigue, Denies weight change Past Medical History Past Medical History: Atrial Fibrillation, Cancer, Heart Failure, COPD, Hypertension, Osteoarthritis (OA) Additional Past Medical History / Comment(s): skin cancer on scalp, macular degeneration History of Any Multi-Drug Resistant Organisms: None Reported Past Surgical History: Hernia Repair, Pacemaker, Tonsillectomy Additional Past Surgical History / Comment(s): skin cancer removed from scalp, andrew cataracts Past Anesthesia/Blood Transfusion Reactions: No Reported Reaction Type of Cardiac Device: Permanent Pacemaker Device Placement Date:: 2017 Past Psychological History: No Psychological Hx Reported Smoking Status: Former smoker Past Alcohol Use History: Occasional Past Drug Use History: None Reported - Past Family History Father Additional Family Medical History / Comment(s): heart issues Mother Family Medical History: Cancer Additional Family Medical History / Comment(s): Pancreatic CA. Medications and Allergies Home Medications Medication Instructions Recorded Confirmed Type Aspirin 81 mg PO DAILY 01/18/15 06/18/18 History Vit C/E/Zn/Coppr/Lutein/Zeaxan 1 cap PO BID 01/18/15 06/18/18 History [Preservision Areds 2 Softgel] Budesonide/Formoterol Fumarate 1 puff INHALATION RT-BID 08/07/17 06/18/18 History [Symbicort 160-4.5 Mcg Inhaler] Apixaban [Eliquis] 2.5 mg PO BID tablet 08/11/17 06/18/18 Rx Diltiazem Cd [Cardizem CD] 240 mg PO DAILY #30 cap.er.24h 08/11/17 06/18/18 Rx Famotidine [Pepcid] 20 mg PO BID 10/23/17 06/18/18 History Potassium Chloride [Klor-Con 10] 10 meq PO DAILY 10/23/17 06/18/18 History Cholecalciferol [Vitamin D3] 2,000 unit PO DAILY 11/14/17 06/18/18 History Albuterol Nebulized [Ventolin 2.5 mg INHALATION RT-QID PRN 06/01/18 06/18/18 History Nebulized] Calcium Carbonate [Calcium] 600 mg PO DAILY 06/01/18 06/18/18 History Furosemide [Lasix] 20 mg PO DAILY@0900 06/01/18 06/18/18 History Furosemide [Lasix] 20 mg PO MOWEFR@2100 06/01/18 06/18/18 History Losartan [Cozaar] 25 mg PO DAILY 06/01/18 06/18/18 History predniSONE 2.5 mg PO DAILY 06/01/18 06/18/18 History Isosorbide Mononitrate ER [Imdur] 15 mg PO DAILY #30 dose 06/03/18 06/18/18 Rx Metoprolol Tartrate [Lopressor] 25 mg PO TID #90 tab 06/03/18 06/18/18 Rx Potassium Chloride [Klor-Con 10] 10 meq PO MOWEFR 06/18/18 06/18/18 History Allergies Allergy/AdvReac Type Severity Reaction Status Date / Time shellfish derived [Shellfish] Allergy Nausea & Verified 06/18/18 07:56 Vomiting & Diarrhea Sulfa (Sulfonamide Allergy Unknown Verified 06/18/18 07:56 Antibiotics) Childhood Physical Exam Vitals: Vital Signs Temp Pulse Resp BP Pulse Ox 06/18/18 09:00 121 H 20 139/108 99 06/18/18 08:30 141 H 27 H 136/94 99 06/18/18 08:00 122 H 23 147/106 98 06/18/18 07:30 140 H 21 130/85 98 06/18/18 07:00 141 H 24 121/91 98 06/18/18 06:54 133 H 31 H 121/91 98 06/18/18 06:30 149 H 156/109 98 06/18/18 06:00 149 H 172/115 93 L 06/18/18 05:53 32 H 100 06/18/18 05:32 98.0 F 132 H 28 H 178/115 86 L Intake and Output 06/17/18 06/18/18 06/18/18 22:59 06:59 14:59 Intake Total 4.417 Balance 4.417 Intake: Intake, IV Titration 4.417 Amount Diltiazem 50 mg In Sodium 4.417 Chloride 0.9% 40 ml @ Per Protocol IV .Q0M [facility] Rx#:[id number] Other: Weight 79.832 kg GENERAL EXAM: Alert, pleasant, 87-year-old white female in moderate respiratory distress, currently on BiPAP support HEAD: Normocephalic/atraumatic. EYES: Normal reaction of pupils, equal size. Conjunctiva pink, sclera white. NOSE: Clear with pink turbinates. THROAT: No erythema or exudates. NECK: No masses, no JVD, no thyroid enlargement, no adenopathy. CHEST: No chest wall deformity. Symmetrical expansion. LUNGS: Equal air entry with diffuse wheezing and bibasilar crackles CVS: Regular rate and rhythm, normal S1 and S2, no gallops, no murmurs, no rubs ABDOMEN: Soft, nontender. No hepatosplenomegaly, normal bowel sounds, no guarding or rigidity. EXTREMITIES: No clubbing, no edema, no cyanosis, 2+ pulses and upper and lower extremities. MUSCULOSKELETAL: Muscle strength and tone normal. SPINE: No scoliosis or deformity SKIN: No rashes CENTRAL NERVOUS SYSTEM: Alert and oriented -3. No focal deficits, tone is normal in all 4 extremities. PSYCHIATRIC: Alert and oriented -3. Appropriate affect. Intact judgment and insight. Results - Laboratory Findings CBC and BMP: 06/18/18 05:53 06/18/18 05:53 PT/INR, D-dimer PT 11.2 sec (9.0-12.0) 06/18/18 05:53 INR 1.1 (<1.2) 06/18/18 05:53 Abnormal lab findings: Abnormal Labs 06/18/18 06/18/18 05:53 05:53 WBC 13.8 H Neutrophils # 10.9 H Sodium 134 L Chloride 95 L BUN 19 H Glucose 164 H Total Bilirubin 1.4 H - Diagnostic Findings Chest x-ray: report reviewed, image reviewed Additional studies: EKG reviewed Assessment and Plan Plan: Assessment: #1. Acute hypoxemic respiratory failure secondary to acute exacerbation of diastolic congestive heart failure #2. A. fib RVR #3. Acute exacerbation of COPD and acute purulent tracheobronchitis #4. Severe COPD, with a FEV1 of 0.72 L or 39% of predicted, Gold stage III #5. Chronic systolic congestive heart failure, most recent EF on 08/08/2017 45- 50%, and evidence of mild to moderate pulmonary hypertension with right ventricular systolic pressure of 46.5 mmHg. Today echocardiogram showed an improved EF of 55-60%, and no evidence of pulmonary hypertension with right ventricular systolic pressure of 29 mmHg #6. Chronic A. fib on Eliquis #7. Previous episodes of pneumonia #8. Hypertension #9. Nicotine dependence, in remission, carries [id number] smoking history #10. Permanent pacemaker for sick sinus syndrome Plan: Continue with IV diuretics, nebulized bronchodilators and IV steroids. Add Zithromax and Rocephin. Continue the BiPAP support. Chest x-ray was reviewed by Dr. St, showed chronic changes, but no other evidence of pneumonia. We' ll obtain influenza screen. Monitor electrolytes and renal profile, monitor fluid balance. Echocardiogram has been ordered and is pending at this time. We' ll continue to follow. I performed a history & physical examination of the patient and discussed their management with my nurse practitioner, Kenna Ervin. I reviewed the nurse practitioner's note and agree with the documented findings and plan of care. Lung sounds are positive for scattered crackles. The findings and the impression was discussed with the patient. I attest to the documentation by the nurse practitioner. Time with Patient: Greater than 30
[2018-06-18 13:49] LABS: Creatine Kinase 51 U/L (30-135)
[2018-06-18 14:04] LABS: Creatine Kinase MB 1.5 ng/mL (0.0-2.4); Troponin I <0.012 ng/mL (0.000-0.034)
[2018-06-18] MEDS: PANTOPRAZOLE 40 MG/10 ML VIAL IVP SCH (17:24)
[2018-06-18] MEDS: APIXABAN 2.5 MG TABLET PO SCH ×2 (17:25→22:35)
[2018-06-18] MEDS: AZITHROMYCIN 500 MG TAB PO SCH (17:25)
[2018-06-18] MEDS: METOPROLOL TARTRATE 25 MG TAB PO SCH ×2 (17:25→21:19)
[2018-06-18] MEDS: ASPIRIN 81 MG PO SCH (17:26)
[2018-06-18 19:06] LABS: Creatine Kinase 49 U/L (30-135)
[2018-06-18 19:17] LABS: Troponin I <0.012 ng/mL (0.000-0.034)
[2018-06-18] MEDS: SYMBICORT 160-4.5 MCG INHALER INHALATION SCH (19:47)
[2018-06-18] MEDS: IPRATROPIUM-ALBUTEROL 3 ML NEB INHALATION PRN (19:48)
--- NOTE | 2018-06-18 22:16 | P.HPIM ---
History of Present Illness H&P Date: 06/18/18 Chief Complaint: Severe shortness of breath, PND, A. fib RVR This is an 87-year-old occasion female patient of Dr. Gutiérrez and Dr. Pina and Dr. 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 This would be her second admission be been 2 weeks her last admission was 06/02/2018. Similar pattern of waking up shorkar, equiing her inhaless rapid ventricular rate, during that admission to home, with isosorbide 15 mg daily and metoprolol 25 mg 3 times a day, and prednisone taper. She did not require any home O2, has been using nebulizer treatments at least 4 times a day, and this was decreased by Dr. Plasencia to to 2 times a day. Patient was otherwise well, until she woke up again with significant shortness of breath early in the morning, was having palpitations difficulty in breathing, she was hypoxemic, on ER evaluation, no additional nebulizer treatments were given by the son, transported via private car. She has conversational dyspnea, wheeze, patient denies any edema, no pulmonary emboli in the past , she is chronically anticoagulated with eliquis2.5 mg she is chronically on prednisone, per home dose it was a 2.5 mg daily, this is not yet confirmed patient denies any recent sick contacts, family mentions that she is independent with ADLs at home, no recent falls, no sick contacts, no foreign travels. Patient denies any fever or chills, no new cough no new purulence The patient came in for evaluation of [facility] emergency center with a diagnoses of A. fib RVR with heart rate of 156, CHF exacerbation, COPD exacerbation as well. She required BiPAP treatments emergency room. Chest x-ray showed chronic changes without any acute abnormalities borderline cardiomegaly . Hemoglobin 14.7, CO2 29, creatinine 1.02, troponin negative 1, proBNP 50-50, patient is on IV Cardizem for rate control, IV Lasix 40 every 12 hours, IV steroids, albuterol is currently held secondary to fast heart rate and will be shown once rate control has been achieved consult with Dr. Plasencia, and cardiology . last echocardiogram 10/15/2017 from our facility, unknown whether echocardiogram was performed outpatient cardiology office Review of Systems Constitutional: Reports as per HPI, Reports malaise, Denies anorexia, Denies chills, Denies chronic headaches, Denies chronic pain, Denies daytime sleepiness , Denies fatigue, Denies fever, Denies lethargy, Denies night sweats, Denies poor appetite, Denies sweats, Denies weakness, Denies weight gain, Denies weight loss Ears, nose, mouth and throat: Reports as per HPI, Denies ant. neck pain, Denies bleeding gums, Denies dental pain, Denies dysphagia, Denies epistaxis, Denies headache, Denies hoarseness, Denies mouth pain, Denies nasal congestion, Denies nasal discharge, Denies neck fullness/pressure, Denies neck lump, Denies nose pain, Denies odynophagia, Denies post-nasal drip, Denies sinus pain, Denies sinus pressure, Denies swelling in mouth, Denies swelling in throat, Denies sore throat, Denies vertigo, Denies voice changes Cardiovascular: Reports as per HPI, Reports decreased exercise tolerance, Reports dyspnea on exertion, Reports paroxysmal nocturnal dyspnea, Reports shortness of breath, Denies chest pain, Denies claudication, Denies edema, Denies high blood pressure, Denies irregular heart beat, Denies leg edema, Denies lightheadedness, Denies orthopnea, Denies palpitations, Denies phlebitis , Denies rapid heart beat, Denies syncope Respiratory: Reports as per HPI, Reports dyspnea Gastrointestinal: Reports as per HPI, Denies abdominal pain, Denies belching, Denies bloating, Denies BRBPR, Denies change in bowel habits, Denies coffee ground emesis, Denies constipation, Denies diarrhea, Denies dyspepsia, Denies early satiety, Denies excessive gas, Denies heartburn, Denies hematemesis, Denies hematochezia, Denies indigestion, Denies jaundice, Denies lactose intolerance, Denies loss of appetite, Denies melena, Denies nausea, Denies vomiting Genitourinary: Reports as per HPI Menstruation: Reports as per HPI, Reports postmenopausal Musculoskeletal: Reports as per HPI, Denies arm numbness/tingling, Denies atrophy, Denies fractures, Denies frequent falls, Denies gait dysfunction, Denies hot joints, Denies leg numbness/tingling, Denies limitation of motion, Denies loss of height, Denies low back pain, Denies morning stiffness, Denies muscle cramps, Denies muscle weakness, Denies myalgias, Denies neck pain, Denies neck stiffness, Denies prior amputations, Denies redness of joints, Denies shooting arm pain, Denies shooting leg pain Integumentary: Reports as per HPI, Denies acne, Denies boils, Denies brittle nails, Denies change in hair/nails, Denies color changes, Denies darkening of skin, Denies depigmentation, Denies dryness, Denies foot/leg ulcers, Denies growths, Denies hirsutism, Denies lesions, Denies onychomycosis, Denies pruritus , Denies rash, Denies sores, Denies striae, Denies unusual bruising, Denies wounds Neurological: Reports as per HPI, Denies aphasia, Denies ataxia, Denies balance difficulties, Denies burning pain, Denies change in mentation, Denies change in smell/taste, Denies change in speech, Denies confusion, Denies convulsions, Denies double vision, Denies gait dysfunction, Denies head injury, Denies headaches, Denies hearing difficulties, Denies lack of coordination, Denies loss of vision, Denies memory loss, Denies migraines, Denies motor disturbance, Denies numbness, Denies paralysis, Denies paresthesias, Denies seizures, Denies sensory deficit, Denies spasticity, Denies syncope, Denies tic, Denies tingling , Denies transient paralysis, Denies tremors, Denies vertigo, Denies weakness, Denies visual changes Psychiatric: Reports as per HPI, Denies anhedonia, Denies anxiety, Denies anxiety attacks, Denies change in appetite, Denies change in libido, Denies change in sleep habits, Denies confusion, Denies depression, Denies difficulty concentrating, Denies disorientation, Denies hallucinations, Denies hopelessness , Denies hypersomnia, Denies insomnia, Denies irritability, Denies memory loss, Denies mood swings, Denies paranoia, Denies sadness/tearfulness, Denies sleep disturbances, Denies suicidal ideation Endocrine: Reports as per HPI, Denies cold intolerance, Denies deepening of the voice, Denies excessive sweating, Denies excessive thirst, Denies fatigue, Denies flushing, Denies heat intolerance, Denies high blood sugars, Denies increase in ring/shoe/hat size, Denies low blood sugars, Denies nocturia, Denies palpitations, Denies polydipsia, Denies polyphagia, Denies polyuria, Denies proptosis, Denies recent glucocorticoid use, Denies thyroid mass, Denies weight change Hematologic/Lymphatic: Reports as per HPI Allergic/Immunologic: Reports as per HPI, Denies allergic rhinitis, Denies anaphylaxis, Denies angioedema, Denies gluten intolerance, Denies persistent infections, Denies seasonal allergies, Denies urticaria, Denies wheezing Past Medical History Past Medical History: Atrial Fibrillation, Cancer, Heart Failure, COPD, Hypertension, Osteoarthritis (OA) Additional Past Medical History / Comment(s): skin cancer on scalp, macular degeneration History of Any Multi-Drug Resistant Organisms: None Reported Past Surgical History: Hernia Repair, Pacemaker, Tonsillectomy Additional Past Surgical History / Comment(s): skin cancer removed from scalp, andrew cataracts Past Anesthesia/Blood Transfusion Reactions: No Reported Reaction Type of Cardiac Device: Permanent Pacemaker Device Placement Date:: 2017 Past Psychological History: No Psychological Hx Reported Smoking Status: Former smoker Past Alcohol Use History: Occasional Past Drug Use History: None Reported - Past Family History Father Additional Family Medical History / Comment(s): heart issues Mother Family Medical History: Cancer Additional Family Medical History / Comment(s): Pancreatic CA. Medications and Allergies Home Medications Medication Instructions Recorded Confirmed Type Aspirin 81 mg PO DAILY 01/18/15 06/18/18 History Vit C/E/Zn/Coppr/Lutein/Zeaxan 1 cap PO BID 01/18/15 06/18/18 History [Preservision Areds 2 Softgel] Budesonide/Formoterol Fumarate 1 puff INHALATION RT-BID 08/07/17 06/18/18 History [Symbicort 160-4.5 Mcg Inhaler] Apixaban [Eliquis] 2.5 mg PO BID tablet 08/11/17 06/18/18 Rx Diltiazem Cd [Cardizem CD] 240 mg PO DAILY #30 cap.er.24h 08/11/17 06/18/18 Rx Famotidine [Pepcid] 20 mg PO BID 10/23/17 06/18/18 History Potassium Chloride [Klor-Con 10] 10 meq PO DAILY 10/23/17 06/18/18 History Cholecalciferol [Vitamin D3] 2,000 unit PO DAILY 11/14/17 06/18/18 History Albuterol Nebulized [Ventolin 2.5 mg INHALATION RT-QID PRN 06/01/18 06/18/18 History Nebulized] Calcium Carbonate [Calcium] 600 mg PO DAILY 06/01/18 06/18/18 History Furosemide [Lasix] 20 mg PO DAILY@0900 06/01/18 06/18/18 History Furosemide [Lasix] 20 mg PO MOWEFR@2100 06/01/18 06/18/18 History Losartan [Cozaar] 25 mg PO DAILY 06/01/18 06/18/18 History predniSONE 2.5 mg PO DAILY 06/01/18 06/18/18 History Isosorbide Mononitrate ER [Imdur] 15 mg PO DAILY #30 dose 06/03/18 06/18/18 Rx Metoprolol Tartrate [Lopressor] 25 mg PO TID #90 tab 06/03/18 06/18/18 Rx Potassium Chloride [Klor-Con 10] 10 meq PO MOWEFR 06/18/18 06/18/18 History Allergies Allergy/AdvReac Type Severity Reaction Status Date / Time shellfish derived [Shellfish] Allergy Nausea & Verified 06/18/18 07:56 Vomiting & Diarrhea Sulfa (Sulfonamide Allergy Unknown Verified 06/18/18 07:56 Antibiotics) Childhood Physical Exam Vitals: Vital Signs Temp Pulse Resp BP Pulse Ox 06/18/18 09:00 121 H 20 139/108 99 06/18/18 08:30 141 H 27 H 136/94 99 06/18/18 08:00 122 H 23 147/106 98 06/18/18 07:30 140 H 21 130/85 98 06/18/18 07:00 141 H 24 121/91 98 06/18/18 06:54 133 H 31 H 121/91 98 06/18/18 06:30 149 H 156/109 98 06/18/18 06:00 149 H 172/115 93 L 06/18/18 05:53 32 H 100 06/18/18 05:32 98.0 F 132 H 28 H 178/115 86 L Intake and Output 06/17/18 06/18/18 06/18/18 22:59 06:59 14:59 Intake Total 4.417 Balance 4.417 Intake: Intake, IV Titration 4.417 Amount Diltiazem 50 mg In Sodium 4.417 Chloride 0.9% 40 ml @ Per Protocol IV .Q0M [facility] Rx#:[id number] Other: Weight 79.832 kg - Constitutional General appearance: cooperative, mild distress - EENT Eyes: anicteric sclerae, EOMI, PERRLA, dentition normal, normal appearance ENT: NA/AT, normal oropharynx - Neck Neck: normal ROM - Respiratory Respiratory: bilateral: CTA, negative: diminished, dullness, rales, rhonchi, wheezing, prolonged expiration - Cardiovascular Rhythm: regular Heart sounds: normal: S1, S2 Abnormal Heart Sounds: systolic murmur, no diastolic murmur, no rub, no S3 Gallop, no S4 Gallop, no click, no other - Gastrointestinal General gastrointestinal: normal bowel sounds, soft - Integumentary Integumentary: decreased turgor, normal - Neurologic Neurologic: CNII-XII intact - Musculoskeletal Musculoskeletal: gait normal - Psychiatric Psychiatric: A&O x's 3, appropriate affect, intact judgment & insight Results CBC & Chem 7: 06/18/18 05:53 06/18/18 05:53 Labs: Abnormal Lab Results - Last 24 Hours (Table) 06/18/18 06/18/18 Range/Units 05:53 05:53 WBC 13.8 H (3.8-10.6) k/uL Neutrophils # 10.9 H (1.3-7.7) k/uL Sodium 134 L (137-145) mmol/L Chloride 95 L (98-107) mmol/L BUN 19 H (7-17) mg/dL Glucose 164 H (74-99) mg/dL Total Bilirubin 1.4 H (0.2-1.3) mg/dL Laboratory Results WBC 13.8 k/uL (3.8-10.6) H 06/18/18 05:53 RBC 5.00 m/uL (3.80-5.40) 06/18/18 05:53 Hgb 14.7 gm/dL (11.4-16.0) 06/18/18 05:53 Hct 45.1 % (34.0-46.0) 06/18/18 05:53 MCV 90.2 fL (80.0-100.0) 06/18/18 05:53 MCH 29.4 pg (25.0-35.0) 06/18/18 05:53 MCHC 32.6 g/dL (31.0-37.0) 06/18/18 05:53 RDW 15.2 % (11.5-15.5) 06/18/18 05:53 Plt Count 189 k/uL (150-450) 06/18/18 05:53 Neutrophils % 79 % 06/18/18 05:53 Lymphocytes % 12 % 06/18/18 05:53 Monocytes % 7 % 06/18/18 05:53 Eosinophils % 1 % 06/18/18 05:53 Basophils % 1 % 06/18/18 05:53 Neutrophils # 10.9 k/uL (1.3-7.7) H 06/18/18 05:53 Lymphocytes # 1.6 k/uL (1.0-4.8) 06/18/18 05:53 Monocytes # 1.0 k/uL (0-1.0) 06/18/18 05:53 Eosinophils # 0.1 k/uL (0-0.7) 06/18/18 05:53 Basophils # 0.1 k/uL (0-0.2) 06/18/18 05:53 PT 11.2 sec (9.0-12.0) 06/18/18 05:53 INR 1.1 (<1.2) 06/18/18 05:53 APTT 28.3 sec (22.0-30.0) 06/18/18 05:53 Sodium 134 mmol/L (137-145) L 06/18/18 05:53 Potassium 4.3 mmol/L (3.5-5.1) 06/18/18 05:53 Chloride 95 mmol/L (98-107) L 06/18/18 05:53 Carbon Dioxide 29 mmol/L (22-30) 06/18/18 05:53 Anion Gap 10 mmol/L 06/18/18 05:53 BUN 19 mg/dL (7-17) H 06/18/18 05:53 Creatinine 1.02 mg/dL (0.52-1.04) 06/18/18 05:53 Est GFR (CKD-EPI)AfAm 58 (>60 ml/min/1.73 sqM) 06/18/18 05:53 Est GFR (CKD-EPI)NonAf 50 (>60 ml/min/1.73 sqM) 06/18/18 05:53 Glucose 164 mg/dL (74-99) H 06/18/18 05:53 Calcium 8.8 mg/dL (8.4-10.2) 06/18/18 05:53 Magnesium 2.3 mg/dL (1.6-2.3) 06/18/18 05:53 Total Bilirubin 1.4 mg/dL (0.2-1.3) H 06/18/18 05:53 AST 27 U/L (14-36) 06/18/18 05:53 ALT 31 U/L (9-52) 06/18/18 05:53 Alkaline Phosphatase 56 U/L (38-126) 06/18/18 05:53 Total Creatine Kinase 49 U/L (30-135) 06/18/18 18:05 CK-MB (CK-2) 2.0 ng/mL (0.0-2.4) 06/18/18 18:05 CK-MB (CK-2) Rel Index 4.1 06/18/18 18:05 Troponin I <0.012 ng/mL (0.000-0.034) 06/18/18 18:05 NT-Pro-B Natriuret Pep 5250 pg/mL 06/18/18 05:53 Total Protein 6.3 g/dL (6.3-8.2) 06/18/18 05:53 Albumin 3.8 g/dL (3.5-5.0) 06/18/18 05:53 Influenza Type A RNA Not Detected (Not Detectd) 06/18/18 18:24 Influenza Type B (PCR) Not Detected (Not Detectd) 06/18/18 18:24 Thrombosis Risk Factor Assmnt - DVT/VTE Prophylaxis DVT/VTE Prophylaxis: Low risk, early ambulation encouraged - Choose All That Apply Each Factor Represents 1 point: Abnormal pulmonary function (COPD) Each Risk Factor Represents 3 Points: Age 75 years or older Thrombosis Risk Factor Assessment Total Risk Factor Score: 4 Thrombosis Risk Factor Assessment Level: Moderate Risk Assessment and Plan Plan: 1. Acute hypoxemic respiratory failure, multifactorial in nature Paroxysmal nocturnal Dyspnea secondary to moderately severe COPD, patient mentions possibly underlying chronic asthma also multifactorial to include, acute on chronic diastolic heart failure and related to episodes of A. fib with RVR. Component of coronary artery disease not ruled out. Patient was started on IV Cardizem, IV Lasix 40 mg every 12 hours, metoprolol 25 mg 3 times a day has been restarted, continue on L Crystal 0.5 mg twice a day, and DuoNeb Symbicort. Ration is on BiPAP support, O2, pulmonary to see, influenza screen. 2. Acute COPD exacerbation. Continue DuoNeb treatments every 4 hours, Solu- Medrol 40 mg every 12 hours, Symbicort 1 puff twice daily 3. Acute on chronic diastolic heart failure last echocardiogram shows normal EF 55-60% however this was last 10/25/2017, were going to obtain one however family members are not quite certain whether an echocardiogram was performed outpatient, communicated to nursing staff to obtain last echocardiogram from Cardiology. Cardiology consult is appreciated. Continue IV Lasix 40mg every 12 hours, I&O and daily weights. Monitor electrolytes and renal function. 4. Paroxysmal atrial fibrillation with RVR. Continue Cardizem 250 mg daily, eliquis 2.5 mg twice daily, Lopressor will be changed to 25 mg 3 times daily. Obtain TSH free T4 T3 5. Mild aortic stenosis, gradient of 21.7 mmHg/12.13 mmHg, mild TR and mild MR , right ventricle systolic pressure of 29 5. Hypertension. Continue losartan 25 mg daily, Lopressor, Cardizem, Imdur. 6. Impaired random blood sugars, hemoglobin C to be obtained . DVT prophylaxis. Eliquis. 7. GI prophylaxis. Pepcid.
[2018-06-19] MEDS: methylPREDNISolone SOD SUCCI 125 MG/2 ML VIAL IV SCH ×6 (05:06→23:18)
[2018-06-19] MEDS: SYMBICORT 160-4.5 MCG INHALER INHALATION SCH ×2 (07:53→19:07)
[2018-06-19] MEDS: IPRATROPIUM-ALBUTEROL 3 ML NEB INHALATION PRN ×4 (07:53→19:07)
[2018-06-19 08:05] LABS: Basophils % (A) 0 %; Eosinophils % (A) 0 %; HCT 44.9 % (34.0-46.0); HGB 13.9 gm/dL (11.4-16.0); Lymphocytes # (A) 0.5 k/uL (1.0-4.8); Lymphocytes % (A) 6 %; MCH 28.3 pg (25.0-35.0); MCV 91.4 fL (80.0-100.0); Mean Platelet Volume 6.6; Monocytes # (A) 0.3 k/uL (0-1.0); Monocytes % (A) 4 %; Neutrophils # (A) 7.2 k/uL (1.3-7.7); Neutrophils % (A) 89 %; Platelet Count 174 k/uL (150-450); RBC 4.91 m/uL (3.80-5.40); RDW 15.1 % (11.5-15.5); WBC 8.1 k/uL (3.8-10.6)
[2018-06-19 08:16] LABS: Albumin 3.4 g/dL (3.5-5.0); Calcium 8.3 mg/dL (8.4-10.2); Potassium 4.2 mmol/L (3.5-5.1); Total Bilirubin 0.9 mg/dL (0.2-1.3); Total Protein 5.9 g/dL (6.3-8.2)
[2018-06-19] MEDS ORDERED: ASPIRIN 325 MG TAB PO SCH (09:00)
[2018-06-19] MEDS: APIXABAN 2.5 MG TABLET PO SCH ×2 (09:43→19:43)
[2018-06-19] MEDS: ASPIRIN 81 MG PO SCH (09:43)
[2018-06-19] MEDS: METOPROLOL TARTRATE 25 MG TAB PO SCH (09:43)
[2018-06-19] MEDS: AZITHROMYCIN 500 MG TAB PO SCH (09:43)
[2018-06-19] MEDS: FUROSEMIDE 10 MG/ML 4 ML VIAL IV SCH ×2 (09:43→19:43)
[2018-06-19] MEDS: PANTOPRAZOLE 40 MG/10 ML VIAL IVP SCH (09:43)
[2018-06-19 12:00] LABS: Glucose,Whole Blood 257 mg/dL (75-99)
--- NOTE | 2018-06-19 12:03 | ECHOF ---
Referral Reason:chf MEASUREMENTS -------- HEIGHT: 165.1 cm WEIGHT: 79.4 kg BP: 115/73 RVIDd: 2.7 cm (< 3.3) IVSd: 1.1 cm (0.6 - 1.1) LVIDd: 3.2 cm (3.9 - 5.3) LVPWd: 1.2 cm (0.6 - 1.1) IVSs: 1.9 cm LVIDs: 2.3 cm LVPWs: 1.7 cm LA Diam: 3.1 cm (2.7 - 3.8) LAESV Index (A-L): 23.11 ml/m Ao Diam: 2.9 cm (2.0 - 3.7) AV Cusp: 1.7 cm (1.5 - 2.6) MV EXCURSION: 20.174 mm (> 18.000) MV EF SLOPE: 343 mm/s (70 - 150) EPSS: 0.4 cm AV maxP.42 mmHg AV meanP.38 mmHg AR PHT: 358 ms RAP: 5.00 mmHg RVSP: 40.65 mmHg FINDINGS -------- Paced rhythm. This was a technically adequate study. The left ventricular size is normal. There is borderline concentric left ventricular hypertrophy. Overall left ventricular systolic function is normal with, an EF between 60 - 65 %. The right ventricle is normal in size. Normal LA size by volume 22+/-6 ml/m2. The right atrium is normal in size. There is mild aortic valve sclerosis. Mild mitral annular calcification present. Mild mitral regurgitation is present. Mild tricuspid regurgitation present. There is mild pulmonary hypertension. The right ventricular systolic pressure, as measured by Doppler, is 40.65mmHg. The pulmonic valve was not well visualized. The aortic root size is normal. Normal inferior vena cava with normal inspiratory collapse consistent with estimated right atrial pre ssure of 5 mmHg. There is no pericardial effusion. CONCLUSIONS -------- 1. Paced rhythm. 2. This was a technically adequate study. 3. The left ventricular size is normal. 4. There is borderline concentric left ventricular hypertrophy. 5. Overall left ventricular systolic function is normal with, an EF between 60 - 65 %. 6. The right ventricle is normal in size. 7. Normal LA size by volume 22+/-6 ml/m2. 8. The right atrium is normal in size. 9. There is mild aortic valve sclerosis. 10. Mild mitral annular calcification present. 11. Mild mitral regurgitation is present. 12. Mild tricuspid regurgitation present. 13. There is mild pulmonary hypertension. 14. The right ventricular systolic pressure, as measured by Doppler, is 40.65mmHg. 15. The pulmonic valve was not well visualized. 16. The aortic root size is normal. 17. Normal inferior vena cava with normal inspiratory collapse consistent with estimated right atrial pressure of 5 mmHg. 18. There is no pericardial effusion. SENIOR [employer] SERVICES DEVELOPER: Evelyne Byrd RDCS
[2018-06-19] MEDS: INSULIN ASPART 100 UNIT/ML 1 ML 10 ML VIAL SQ SCH ×3 (12:40→21:41)
[2018-06-19 13:26] LABS: Hemoglobin A1C 5.9 % (4.0-6.0)
--- NOTE | 2018-06-19 14:25 | P.PN ---
Subjective Progress Note Date: 06/19/18 Principal diagnosis: Acute hypoxemic respiratory failure secondary to acute exacerbation of diastolic congestive heart failure A. fib RVR This is a 87-year-old female patient of Dr. Gutiérrez, who was brought into the emergency department per EMS on 06/18/2018 at 5:00 in the morning for evaluation of difficulty breathing, patient woke up this morning feeling palpitations and increasing shortness of breath. When EMS arrived patient was hypoxemic, in severe respiratory distress, quite dyspneic even with conversation , and tachycardic. Patient states she had been coming down with a cold, she had some chills, and some congestion and production of green colored sputum for the last couple days Past medical history is significant for chronic atrial fibrillation on Eliquis, advanced COPD with a baseline FEV1 of 0.72 L or 39% predicted, chronic diastolic congestive heart failure, hypertension, osteoarthritis, permanent pacemaker for sick sinus syndrome. Chest x-ray showed COPD, borderline cardiomegaly. EKG showed A. fib RVR with a rate of 156 , ST and T-wave abnormality suggesting inferolateral ischemia, and evidence of a septal infarct of undetermined age. Lab work showed WBC of 13.8, hemoglobin 14.7, sodium of 134, potassium is 4.3, chloride is 95, CO2 is 29, BUN is 19 and creatinine is 1.02, troponin was negative 1, proBNP was elevated at 5250. Patient was started on IV Lasix at 40 mg every 12 hours, she was started on Cardizem drip for rate control. IV steroids and nebulized treatments were started. On 06/19/2018 patient seen in follow-up on medical surgical floor. She is doing better today, off BiPAP support, did wear it last night. Currently on nasal cannula, at 2 L per nasal cannula and her pulse ox is 96%, she is afebrile , remains in A. fib and the rate is still tachycardic, but although improved. She remains on Cardizem drip for rate control currently at 10 mg per hour. Her heart rate is 116-117 BPM. His labs have been reviewed, no leukocytosis, WBCs 8.1, hemoglobin is 13.9, electrolytes were within normal limits, B1 is 27 creatinine was 0.94. Flu on Zosyn was not detected. TSH was within normal limits. Any chest pain. Lung sounds reveal some end expiratory wheezes, but overall much improved. She remains on IV Lasix, nebulized bronchodilators, yesterday we added Zithromax and Rocephin. She continues on IV Solu-Medrol. Objective - Vital Signs Vital signs: Vital Signs Temp 97.1 F L 06/19/18 12:00 Pulse 117 H 06/19/18 12:00 Resp 16 06/19/18 12:00 BP 109/63 06/19/18 12:00 Pulse Ox 96 06/19/18 12:00 Intake & Output 06/18/18 06/19/18 06/19/18 18:59 06:59 18:59 Intake Total 890 Balance 890 Weight 79.5 kg Intake: Intake, IV Titration 50 Amount cefTRIAXone 1,000 mg In 50 Sodium Chloride 0.9% 50 ml @ 100 mls/hr IVPB Q24HR [facility] Rx#:[id number] Oral 840 Other: Voiding Method Toilet Toilet # Voids 1 3 1 - Exam GENERAL EXAM: Alert, pleasant, 87-year-old white female in moderate respiratory distress, currently on BiPAP support HEAD: Normocephalic/atraumatic. EYES: Normal reaction of pupils, equal size. Conjunctiva pink, sclera white. NOSE: Clear with pink turbinates. THROAT: No erythema or exudates. NECK: No masses, no JVD, no thyroid enlargement, no adenopathy. CHEST: No chest wall deformity. Symmetrical expansion. LUNGS: Equal air entry with diffuse wheezing and bibasilar crackles CVS: Regular rate and rhythm, normal S1 and S2, no gallops, no murmurs, no rubs ABDOMEN: Soft, nontender. No hepatosplenomegaly, normal bowel sounds, no guarding or rigidity. EXTREMITIES: No clubbing, no edema, no cyanosis, 2+ pulses and upper and lower extremities. MUSCULOSKELETAL: Muscle strength and tone normal. SPINE: No scoliosis or deformity SKIN: No rashes CENTRAL NERVOUS SYSTEM: Alert and oriented -3. No focal deficits, tone is normal in all 4 extremities. PSYCHIATRIC: Alert and oriented -3. Appropriate affect. Intact judgment and insight. - Labs CBC & Chem 7: 06/19/18 07:43 06/19/18 07:43 Labs: Abnormal Lab Results - Last 24 Hours (Table) 06/19/18 06/19/18 06/19/18 Range/Units 07:43 07:43 11:46 Lymphocytes # 0.5 L (1.0-4.8) k/uL BUN 27 H (7-17) mg/dL Glucose 195 H (74-99) mg/dL POC Glucose (mg/dL) 257 H (75-99) mg/dL Calcium 8.3 L (8.4-10.2) mg/dL Total Protein 5.9 L (6.3-8.2) g/dL Albumin 3.4 L (3.5-5.0) g/dL HDL Cholesterol 79 H (40-60) mg/dL Assessment and Plan Plan: Assessment: #1. Acute hypoxemic respiratory failure secondary to acute exacerbation of diastolic congestive heart failure #2. A. fib RVR #3. Acute exacerbation of COPD and acute purulent tracheobronchitis #4. Severe COPD, with a FEV1 of 0.72 L or 39% of predicted, Gold stage III #5. Chronic systolic congestive heart failure. Today's echocardiogram showed left ventricle systolic function with EF of 60-65% #6. Chronic A. fib on Eliquis #7. Previous episodes of pneumonia #8. Hypertension #9. Nicotine dependence, in remission, carries [id number] smoking history #10. Permanent pacemaker for sick sinus syndrome Plan: Continue IV diuretics, continue the antibiotics, steroids and bronchodilators. BiPAP support as needed, patient is improving, breathing easier, less bronchospastic on today's exam, heart rate is better controlled, cardiology is following. Continue to follow. I performed a history & physical examination of the patient and discussed their management with my nurse practitioner, Kenna Ervin. I reviewed the nurse practitioner's note and agree with the documented findings and plan of care. Lung sounds are positive scattered wheezes. The findings and the impression was discussed with the patient. I attest to the documentation by the nurse practitioner. Time with Patient: Less than 30
[2018-06-19] MEDS ORDERED: METOPROLOL TARTRATE 25 MG TAB PO STA (14:32)
[2018-06-19] MEDS: DILTIAZEM CD 240 MG CAP.ER.24H PO SCH (16:13)
[2018-06-19 17:08] LABS: Glucose,Whole Blood 231 mg/dL (75-99)
[2018-06-19] MEDS ORDERED: MELATONIN 3 MG TABLET PO PRN (19:42)
--- NOTE | 2018-06-19 19:55 | CONS ---
CONSULTATION HISTORY: This is a elderly 87-year-old lady who has a known history of paroxysmal atrial fibrillation, has been on beta blockers and Cardizem and also anticoagulated with Eliquis 2.5 mg b.i.d. She apparently was seen in the hospital 6 or 7 months ago. She is a past smoker and also has COPD with exacerbation. She came in mostly with complaints of having palpitations. She was found to be in atrial fibrillation with a fairly rapid ventricular rate and she has been placed on a Cardizem drip and with this she seems to be a breathing easier and resting comfortably. At the time of my evaluation she is resting comfortably. Her breathing is easier. She denies any chest discomfort and her shortness of breath has improved. PAST MEDICAL HISTORY: Remarkable for atrial fibrillation, probably paroxysmal, hypertension, hyperlipidemia, osteoarthritis, and COPD. The patient probably has a sick sinus syndrome with some slow heart rates and has an underlying permanent pacemaker. MEDICATIONS: At home include: 1. Vitamin supplements. 2. Aspirin 81 mg daily. 3. Symbicort inhaler. 4. Pepcid. 5. Potassium supplements. 6. Vitamin D. 7. Lasix 20 mg b.i.d. 8. Cozaar 25 mg daily. 9. Prednisone 2.5 mg daily. 10.Apixaban 2.5 mg b.i.d. 11.Diltiazem CD 240 mg b.i.d. 12.Metoprolol tartrate 25 mg t.i.d. 13.Imdur 15 mg daily. ALLERGIES: SULFA. PHYSICAL EXAMINATION: Blood pressure is 130/70, pulse rate is about 100 per minute and irregular HEENT: Unremarkable. Fundus was not examined by me. NECK: Supple. There is JVD of 1 cm. No carotid bruit. HEART: S1, S2 with tachycardia. Short systolic murmur. LUNGS: Bilateral diminished air entry. ABDOMEN: Soft, nontender. EXTREMITIES: Lower extremities reveal normal pulses. No edema. Trace edema. CENTRAL NERVOUS SYSTEM: Grossly within normal limits. DIAGNOSTIC STUDIES: EKG on arrival revealed atrial fib with a rapid ventricular rate, nonspecific ST-T changes and poor R-wave progression over precordial leads suggested. IMPRESSION: 1. Tachy-terry phenomena with paroxysmal atrial fibrillation, rapid ventricular rate. 2. Sick sinus syndrome with underlying permanent pacemaker. 3. Hypertension. 4. Hyperlipidemia. 5. Past history of smoking and chronic obstructive pulmonary disease. RECOMMENDATIONS: I am recommending that we will optimize her rate control by increasing Lopressor to 50 mg b.i.d., add Cardizem CD, and slowly discontinue the Cardizem drip and see how she does. We will continue anticoagulation. Based on clinical course, I will make further recommendations. I discussed my thoughts in detail with the patient. Thank you very much for the consult. LUPILLO / HARDIK: [id number] /
[2018-06-19 20:58] LABS: Glucose,Whole Blood 163 mg/dL (75-99)
[2018-06-19] MEDS ORDERED: METOPROLOL TARTRATE 50 MG TAB PO SCH (21:00)
[2018-06-20] MEDS: PANTOPRAZOLE 40 MG TABLET PO SCH (04:49)
[2018-06-20] MEDS: methylPREDNISolone SOD SUCCI 125 MG/2 ML VIAL IV SCH ×4 (04:49→23:11)
[2018-06-20 06:07] LABS: Glucose,Whole Blood 188 mg/dL (75-99)
[2018-06-20] MEDS: INSULIN ASPART 100 UNIT/ML 1 ML 10 ML VIAL SQ SCH ×4 (06:38→21:14)
[2018-06-20] MEDS: DILTIAZEM CD 240 MG CAP.ER.24H PO SCH (08:04)
[2018-06-20] MEDS: METOPROLOL TARTRATE 25 MG TAB PO SCH ×3 (08:04→19:42)
[2018-06-20] MEDS: APIXABAN 2.5 MG TABLET PO SCH ×2 (08:04→19:42)
[2018-06-20] MEDS: AZITHROMYCIN 500 MG TAB PO SCH (08:04)
[2018-06-20] MEDS: ASPIRIN 81 MG PO SCH (08:04)
[2018-06-20] MEDS: FUROSEMIDE 10 MG/ML 4 ML VIAL IV SCH ×2 (08:05→19:42)
[2018-06-20] MEDS: SYMBICORT 160-4.5 MCG INHALER INHALATION SCH ×2 (08:18→19:40)
[2018-06-20] MEDS: IPRATROPIUM-ALBUTEROL 3 ML NEB INHALATION PRN ×3 (08:18→19:39)
[2018-06-20 08:28] LABS: Basophils % (A) 0 %; Eosinophils % (A) 0 %; HCT 42.7 % (34.0-46.0); HGB 13.2 gm/dL (11.4-16.0); Lymphocytes # (A) 0.5 k/uL (1.0-4.8); Lymphocytes % (A) 3 %; MCH 28.6 pg (25.0-35.0); MCHC 31.1 g/dL (31.0-37.0); MCV 92.1 fL (80.0-100.0); Mean Platelet Volume 6.8; Monocytes # (A) 0.4 k/uL (0-1.0); Monocytes % (A) 3 %; Neutrophils # (A) 14.1 k/uL (1.3-7.7); Neutrophils % (A) 93 %; Platelet Count 237 k/uL (150-450); RBC 4.63 m/uL (3.80-5.40); RDW 15.3 % (11.5-15.5); WBC 15.1 k/uL (3.8-10.6)
[2018-06-20 08:36] LABS: Albumin 3.5 g/dL (3.5-5.0); Calcium 8.1 mg/dL (8.4-10.2); Potassium 3.4 mmol/L (3.5-5.1); Total Bilirubin 0.6 mg/dL (0.2-1.3)
[2018-06-20] MEDS ORDERED: Potassium Replacement Protocol 1 EACH MISC MISCELLANE PRN (09:34)
[2018-06-20] MEDS: POTASSIUM CHLORIDE ER 20 MEQ TAB.ER PO SCH ×2 (10:00→11:57)
[2018-06-20 10:20] VITALS: BMI 29.0
[2018-06-20 11:47] LABS: Glucose,Whole Blood 164 mg/dL (75-99)
--- NOTE | 2018-06-20 13:37 | P.PN ---
Subjective Progress Note Date: 06/20/18 Principal diagnosis: Acute hypoxemic respiratory failure secondary to an acute exacerbation of diastolic congestive heart failure along with atrial fibrillation with rapid ventricular response. This is a 87-year-old female patient of Dr. Gutiérrez, who was brought into the emergency department per EMS on 06/18/2018 at 5:00 in the morning for evaluation of difficulty breathing, patient woke up this morning feeling palpitations and increasing shortness of breath. When EMS arrived patient was hypoxemic, in severe respiratory distress, quite dyspneic even with conversation , and tachycardic. Patient states she had been coming down with a cold, she had some chills, and some congestion and production of green colored sputum for the last couple days Past medical history is significant for chronic atrial fibrillation on Eliquis, advanced COPD with a baseline FEV1 of 0.72 L or 39% predicted, chronic diastolic congestive heart failure, hypertension, osteoarthritis, permanent pacemaker for sick sinus syndrome. Chest x-ray showed COPD, borderline cardiomegaly. EKG showed A. fib RVR with a rate of 156 , ST and T-wave abnormality suggesting inferolateral ischemia, and evidence of a septal infarct of undetermined age. Lab work showed WBC of 13.8, hemoglobin 14.7, sodium of 134, potassium is 4.3, chloride is 95, CO2 is 29, BUN is 19 and creatinine is 1.02, troponin was negative 1, proBNP was elevated at 5250. Patient was started on IV Lasix at 40 mg every 12 hours, she was started on Cardizem drip for rate control. IV steroids and nebulized treatments were started. On 06/19/2018 patient seen in follow-up on medical surgical floor. She is doing better today, off BiPAP support, did wear it last night. Currently on nasal cannula, at 2 L per nasal cannula and her pulse ox is 96%, she is afebrile , remains in A. fib and the rate is still tachycardic, but although improved. She remains on Cardizem drip for rate control currently at 10 mg per hour. Her heart rate is 116-117 BPM. His labs have been reviewed, no leukocytosis, WBCs 8.1, hemoglobin is 13.9, electrolytes were within normal limits, B1 is 27 creatinine was 0.94. Flu on Zosyn was not detected. TSH was within normal limits. Any chest pain. Lung sounds reveal some end expiratory wheezes, but overall much improved. She remains on IV Lasix, nebulized bronchodilators, yesterday we added Zithromax and Rocephin. She continues on IV Solu-Medrol. The patient is seen again today 06/20/2018 in follow-up on the regular surgical floor. She is currently resting quite comfortably in bed. She denies any worsening shortness of breath, cough or congestion. Early maintaining good O2 saturations in the mid 90s on 2 L/m per nasal cannula. She's been afebrile. Heart rate still tachycardic in the 120s. Blood pressure stable. He is currently on Cardizem 240 mg by mouth daily along with metoprolol 75 mg twice a day. She remains on IV diuretics at 40 mg every 12 hours. Current weight 79.1 kg. Sputum culture pending. She remains on antibiotics and bronchodilators. White count 15.1. Hemoglobin 13.2. Creatinine 1.01. Objective - Vital Signs Vital signs: Vital Signs Temp 97.2 F L 06/20/18 11:48 Pulse 119 H 06/20/18 11:48 Resp 16 06/20/18 11:48 BP 111/64 06/20/18 11:48 Pulse Ox 96 06/20/18 11:48 Intake & Output 06/19/18 06/20/18 06/20/18 18:59 06:59 18:59 Intake Total 1130 530 Balance 1130 530 Weight 79.1 kg 79.1 kg Intake: Intake, IV Titration 50 50 Amount cefTRIAXone 1,000 mg In 50 50 Sodium Chloride 0.9% 50 ml @ 100 mls/hr IVPB Q24HR [facility] Rx#:[id number] Oral 1080 480 Other: Voiding Method Toilet # Voids 2 2 1 - Exam GENERAL EXAM: Alert, active, comfortable in no apparent distress. On 2 L/m per nasal cannula HEAD: Normocephalic. EYES: Normal reaction of pupils, equal size. NOSE: Clear with pink turbinates. THROAT: No erythema or exudates. NECK: No masses, no JVD. CHEST: No chest wall deformity. LUNGS: Equal air entry with scattered rhonchi, end expiratory wheeze.. CVS: S1 and S2 normal with no audible murmur, regular rhythm. ABDOMEN: No hepatosplenomegaly, normal bowel sounds, no guarding or rigidity. SPINE: No scoliosis or deformity SKIN: No rashes CENTRAL NERVOUS SYSTEM: No focal deficits, tone is normal in all 4 extremities. EXTREMITIES: There is no peripheral edema. No clubbing, no cyanosis. Peripheral pulses are intact. - Labs CBC & Chem 7: 06/20/18 07:47 06/20/18 07:47 Labs: Abnormal Lab Results - Last 24 Hours (Table) 06/19/18 06/19/18 06/20/18 Range/Units 16:56 20:56 06:06 WBC (3.8-10.6) k/uL Neutrophils # (1.3-7.7) k/uL Lymphocytes # (1.0-4.8) k/uL Potassium (3.5-5.1) mmol/L BUN (7-17) mg/dL Glucose (74-99) mg/dL POC Glucose (mg/dL) 231 H 163 H 188 H (75-99) mg/dL Calcium (8.4-10.2) mg/dL Total Protein (6.3-8.2) g/dL 06/20/18 06/20/18 06/20/18 Range/Units 07:47 07:47 11:40 WBC 15.1 H (3.8-10.6) k/uL Neutrophils # 14.1 H (1.3-7.7) k/uL Lymphocytes # 0.5 L (1.0-4.8) k/uL Potassium 3.4 L (3.5-5.1) mmol/L BUN 32 H (7-17) mg/dL Glucose 204 H (74-99) mg/dL POC Glucose (mg/dL) 164 H (75-99) mg/dL Calcium 8.1 L (8.4-10.2) mg/dL Total Protein 6.0 L (6.3-8.2) g/dL Microbiology - Last 24 Hours (Table) 06/19/18 12:00 Gram Stain - Preliminary Sputum Assessment and Plan Assessment: Assessment: #1. Acute hypoxemic respiratory failure secondary to acute exacerbation of diastolic congestive heart failure #2. A. fib RVR #3. Acute exacerbation of COPD and acute purulent tracheobronchitis #4. Severe COPD, with a FEV1 of 0.72 L or 39% of predicted, Gold stage III #5. Chronic systolic congestive heart failure. Today's echocardiogram showed left ventricle systolic function with EF of 60-65% #6. Chronic A. fib on Eliquis #7. Previous episodes of pneumonia #8. Hypertension #9. Nicotine dependence, in remission, carries [id number] smoking history #10. Permanent pacemaker for sick sinus syndrome Plan: The patient was seen and evaluated by Dr. Rajan. She is improved today. She continues on IV diuretics, calcium channel blockers, beta blockers for rate control. She remains on antibiotics, bronchodilators and IV Solu-Medrol which we will decrease to help decrease her heart rate. We will increase her activity as tolerated. We'll continue to follow and make further recommendations based on her clinical status. I, the cosigning physician, performed a history & physical examination of the patient. Lungs sounds with crackles in the bases, bilateral wheezing. Diminished. Maintaining good O2 saturations in the 90s on 2 L/m per nasal cannula. I discussed the assessment and plan of care with my nurse practitioner , Yessica Doe. I attest to the above note as dictated by her.
--- NOTE | 2018-06-20 14:23 | P.PN ---
Subjective Progress Note Date: 06/20/18 This is an 87-year-old female with known history of paroxysmal A. fib who has been on beta blockers and Cardizem, anticoagulated with Eliquis. Past history of nicotine dependence and also has COPD with exacerbation. She presented to the hospital on this occasion mainly with symptoms of palpitations and was found to be in atrial fibrillation. Patient was seen in consultation yesterday by Dr. RODRI Irizarry. Patient was seen and examined today, overall does state that she is feeling better, dose of beta tai was increased, we will also repeat an EKG. Echocardiogram with Doppler study revealed an ejection fraction of 60- 65%. White blood cell count 15.5, hemoglobin 13.2, platelet count 237. Sodium 139, potassium 3.4, BUN 32, creatinine 1.0. Objective - Vital Signs Vital signs: Vital Signs Temp 97.2 F L 06/20/18 11:48 Pulse 119 H 06/20/18 11:48 Resp 16 06/20/18 11:48 BP 111/64 06/20/18 11:48 Pulse Ox 96 06/20/18 11:48 Intake & Output 06/19/18 06/20/18 06/20/18 18:59 06:59 18:59 Intake Total 1130 530 Balance 1130 530 Weight 79.1 kg 79.1 kg Intake: Intake, IV Titration 50 50 Amount cefTRIAXone 1,000 mg In 50 50 Sodium Chloride 0.9% 50 ml @ 100 mls/hr IVPB Q24HR [facility] Rx#:[id number] Oral 1080 480 Other: Voiding Method Toilet # Voids 2 2 1 - Exam GENERAL EXAM: Alert, active, comfortable in no apparent distress. On 2 L/m per nasal cannula HEAD: Normocephalic. EYES: Normal reaction of pupils, equal size. NOSE: Clear with pink turbinates. THROAT: No erythema or exudates. NECK: No masses, no JVD. CHEST: No chest wall deformity. LUNGS: Equal air entry with scattered rhonchi, end expiratory wheeze.. CVS: S1 and S2 normal with no audible murmur, regular rhythm. ABDOMEN: No hepatosplenomegaly, normal bowel sounds, no guarding or rigidity. SPINE: No scoliosis or deformity SKIN: No rashes CENTRAL NERVOUS SYSTEM: No focal deficits, tone is normal in all 4 extremities. EXTREMITIES: There is no peripheral edema. No clubbing, no cyanosis. Peripheral pulses are intact. - Labs CBC & Chem 7: 06/20/18 07:47 06/20/18 07:47 Labs: Abnormal Lab Results - Last 24 Hours (Table) 06/19/18 06/19/18 06/20/18 Range/Units 16:56 20:56 06:06 WBC (3.8-10.6) k/uL Neutrophils # (1.3-7.7) k/uL Lymphocytes # (1.0-4.8) k/uL Potassium (3.5-5.1) mmol/L BUN (7-17) mg/dL Glucose (74-99) mg/dL POC Glucose (mg/dL) 231 H 163 H 188 H (75-99) mg/dL Calcium (8.4-10.2) mg/dL Total Protein (6.3-8.2) g/dL 06/20/18 06/20/18 06/20/18 Range/Units 07:47 07:47 11:40 WBC 15.1 H (3.8-10.6) k/uL Neutrophils # 14.1 H (1.3-7.7) k/uL Lymphocytes # 0.5 L (1.0-4.8) k/uL Potassium 3.4 L (3.5-5.1) mmol/L BUN 32 H (7-17) mg/dL Glucose 204 H (74-99) mg/dL POC Glucose (mg/dL) 164 H (75-99) mg/dL Calcium 8.1 L (8.4-10.2) mg/dL Total Protein 6.0 L (6.3-8.2) g/dL Microbiology - Last 24 Hours (Table) 06/19/18 12:00 Gram Stain - Preliminary Sputum Assessment and Plan Plan: Assessment: #1. Acute hypoxemic respiratory failure secondary to acute exacerbation of diastolic congestive heart failure #2. A. fib RVR, chronic persistent, on Eliquis #3. Acute exacerbation of COPD and acute purulent tracheobronchitis #4. Severe COPD, with a FEV1 of 0.72 L or 39% of predicted, Gold stage III #5. Chronic diastolic congestive heart failure. Today's echocardiogram showed left ventricle systolic function with EF of 60-65% #7. Previous episodes of pneumonia #8. Hypertension #9. Nicotine dependence, in remission, carries [id number] smoking history #10. Permanent pacemaker for sick sinus syndrome Plan We'll increase the dose of beta tai today, repeat EKG. Continue the rest patient's medications. DNP note has been reviewed, I agree with a documented findings and plan of care. Patient was seen and examined.
--- NOTE | 2018-06-20 15:52 | P.PN ---
Subjective Progress Note Date: 06/19/18 This is an 87-year-old occasion female patient of Dr. Gutiérrez and Dr. Pina and Dr. 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 This would be her second admission be been 2 weeks her last admission was 06/02/2018. Similar pattern of waking up shorjanuary of elena, equiing her inhaless rapid ventricular rate, during that admission to home, with isosorbide 15 mg daily and metoprolol 25 mg 3 times a day, and prednisone taper. She did not require any home O2, has been using nebulizer treatments at least 4 times a day, and this was decreased by Dr. Plasencia to to 2 times a day. Patient was otherwise well, until she woke up again with significant shortness of breath early in the morning, was having palpitations difficulty in breathing, she was hypoxemic, on ER evaluation, no additional nebulizer treatments were given by the son, transported via private car. She has conversational dyspnea, wheeze, patient denies any edema, no pulmonary emboli in the past , she is chronically anticoagulated with eliquis2.5 mg she is chronically on prednisone, per home dose it was a 2.5 mg daily, this is not yet confirmed patient denies any recent sick contacts, family mentions that she is independent with ADLs at home, no recent falls, no sick contacts, no foreign travels. Patient denies any fever or chills, no new cough no new purulence The patient came in for evaluation of emergency center with a diagnoses of A. fib RVR with heart rate of 156, CHF exacerbation, COPD exacerbation as well. She required BiPAP treatments emergency room. Chest x-ray showed chronic changes without any acute abnormalities borderline cardiomegaly . Hemoglobin 14.7, CO2 29, creatinine 1.02, troponin negative 1, proBNP 50-50, patient is on IV Cardizem for rate control, IV Lasix 40 every 12 hours, IV steroids, albuterol is currently held secondary to fast heart rate and will be shown once rate control has been achieved consult with Dr. Plasencia, and cardiology . last echocardiogram 10/15/2017 from our facility, unknown whether echocardiogram was performed outpatient cardiology office 06/19: Review Of Systems: Constitutional: No fever, no chills, no night sweats. No weight change. No weakness, reports fatigue or lethargy. No daytime sleepiness. EENT: No headache. No blurred vision or double vision, no loss of vision. No loss of Hearing, no ringing in the ears, no dizziness. No nasal drainage or congestion. No epistaxis. No sore throat. Lungs: No shortness of breath, cough, no sputum production. No wheezing. Reports decreased exercise tolerance, reports dyspnea on exertion Cardiovascular: No chest pain, no lower extremity edema. No palpitations. reports paroxysmal nocturnal dyspnea. No orthopnea. No lightheadedness or dizziness. No syncopal episodes. Abdominal: No abdominal pain. No nausea, vomiting. No diarrhea. No constipation. No bloody or tarry stools.. No loss of appetite. Genitourinary: No dysuria, increased frequency, urgency. No urinary retention. Musculoskeletal: No myalgias. No muscle weakness, no gait dysfunction, no frequent falls. No back pain. No neck pain. Integumentary: No wounds, no lesions. No rash or pruritus. No unusual bruising. No change in hair or nails. Neurologic: No aphasia. No facial droop. No change in mentation. No head injury. No headache. No paralysis. No paresthesia. Psychiatric: No depression. No anxiety. No mood swings. Endocrine: No abnormal blood sugars. No weight change. No excessive sweating or thirst. No cold intolerance. No weight change. Objective - Vital Signs Vital signs: Vital Signs Temp 97.1 F L 06/19/18 12:00 Pulse 117 H 06/19/18 12:00 Resp 16 06/19/18 12:00 BP 109/63 06/19/18 12:00 Pulse Ox 96 06/19/18 12:00 Intake & Output 06/18/18 06/19/18 06/19/18 18:59 06:59 18:59 Intake Total 890 Balance 890 Weight 79.5 kg Intake: Intake, IV Titration 50 Amount cefTRIAXone 1,000 mg In 50 Sodium Chloride 0.9% 50 ml @ 100 mls/hr IVPB Q24HR [facility] Rx#:[id number] Oral 840 Other: Voiding Method Toilet Toilet # Voids 1 3 1 - Exam General appearance: cooperative, no distress - EENT Eyes: anicteric sclerae, EOMI, PERRLA, dentition normal, normal appearance ENT: NA/AT, normal oropharynx - Neck Neck: normal ROM - Respiratory Respiratory: bilateral: CTA, negative: diminished, dullness, rales, rhonchi, wheezing, prolonged expiration - Cardiovascular Rhythm: regular Heart sounds: normal: S1, S2 Abnormal Heart Sounds: systolic murmur, no diastolic murmur, no rub, no S3 Gallop, no S4 Gallop, no click, no other - Gastrointestinal General gastrointestinal: normal bowel sounds, soft - Integumentary Integumentary: decreased turgor, normal - Neurologic Neurologic: CNII-XII intact - Musculoskeletal Musculoskeletal: gait normal - Psychiatric Psychiatric: A&O x's 3, appropriate affect, intact judgment & insight - Labs CBC & Chem 7: 06/20/18 07:47 06/20/18 07:47 Labs: Abnormal Lab Results - Last 24 Hours (Table) 06/19/18 06/19/18 06/19/18 Range/Units 07:43 07:43 11:46 Lymphocytes # 0.5 L (1.0-4.8) k/uL BUN 27 H (7-17) mg/dL Glucose 195 H (74-99) mg/dL POC Glucose (mg/dL) 257 H (75-99) mg/dL Calcium 8.3 L (8.4-10.2) mg/dL Total Protein 5.9 L (6.3-8.2) g/dL Albumin 3.4 L (3.5-5.0) g/dL HDL Cholesterol 79 H (40-60) mg/dL Assessment and Plan Plan: 1. Acute hypoxemic respiratory failure, multifactorial in nature Paroxysmal nocturnal Dyspnea secondary to moderately severe COPD, patient mentions possibly underlying chronic asthma also multifactorial to include, acute on chronic diastolic heart failure and related to episodes of A. fib with RVR. Component of coronary artery disease not ruled out. Patient was started on IV Cardizem, IV Lasix 40 mg every 12 hours, metoprolol 25 mg 3 times a day has been restarted, continue on L Crystal 0.5 mg twice a day, and DuoNeb Symbicort. Ration is on BiPAP support, O2, pulmonary to see, influenza screen. 2. Acute COPD exacerbation. Continue DuoNeb treatments every 4 hours, Solu- Medrol 40 mg every 12 hours, Symbicort 1 puff twice daily 3. Acute on chronic diastolic heart failure last echocardiogram shows normal EF 55-60% however this was last 10/25/2017, were going to obtain one however family members are not quite certain whether an echocardiogram was performed outpatient, communicated to nursing staff to obtain last echocardiogram from Cardiology. Cardiology consult is appreciated. Continue IV Lasix 40mg every 12 hours, I&O and daily weights. Monitor electrolytes and renal function. 4. Paroxysmal atrial fibrillation with RVR. Continue Cardizem 250 mg daily, eliquis 2.5 mg twice daily, Lopressor will be changed to 25 mg 3 times daily. Obtain TSH free T4 T3 5. Mild aortic stenosis, gradient of 21.7 mmHg/12.13 mmHg, mild TR and mild MR , right ventricle systolic pressure of 29 5. Hypertension. Continue losartan 25 mg daily, Lopressor, Cardizem, Imdur. 6. Impaired random blood sugars, hemoglobin C to be obtained . DVT prophylaxis. Eliquis. 7. GI prophylaxis. Pepcid. Discharge plan: To be determined Impression and plan of care have been directed as dictated by the signing physician. Noelle Gilbert nurse practitioner acting as scribe for signing physician.
[2018-06-20 16:45] LABS: Glucose,Whole Blood 181 mg/dL (75-99)
[2018-06-20 20:52] LABS: Glucose,Whole Blood 168 mg/dL (75-99)
[2018-06-21 05:51] LABS: Glucose,Whole Blood 174 mg/dL (75-99)
[2018-06-21] MEDS: PANTOPRAZOLE 40 MG TABLET PO SCH (06:33)
[2018-06-21] MEDS: INSULIN ASPART 100 UNIT/ML 1 ML 10 ML VIAL SQ SCH ×4 (06:33→21:35)
[2018-06-21] MEDS: ASPIRIN 81 MG PO SCH (08:00)
[2018-06-21] MEDS: AZITHROMYCIN 500 MG TAB PO SCH (08:00)
[2018-06-21] MEDS: APIXABAN 2.5 MG TABLET PO SCH ×2 (08:00→19:49)
[2018-06-21] MEDS: METOPROLOL TARTRATE 25 MG TAB PO SCH ×3 (08:00→21:35)
[2018-06-21] MEDS: DILTIAZEM CD 240 MG CAP.ER.24H PO SCH (08:00)
[2018-06-21] MEDS: methylPREDNISolone SOD SUCCI 125 MG/2 ML VIAL IV SCH (08:01)
[2018-06-21] MEDS: FUROSEMIDE 10 MG/ML 4 ML VIAL IV SCH (08:01)
[2018-06-21 08:17] LABS: Basophils % (A) 0 %; Eosinophils % (A) 0 %; HCT 42.3 % (34.0-46.0); HGB 13.5 gm/dL (11.4-16.0); Lymphocytes # (A) 0.7 k/uL (1.0-4.8); Lymphocytes % (A) 6 %; MCHC 31.9 g/dL (31.0-37.0); MCV 90.9 fL (80.0-100.0); Mean Platelet Volume 6.6; Monocytes # (A) 0.3 k/uL (0-1.0); Monocytes % (A) 3 %; Neutrophils # (A) 10.6 k/uL (1.3-7.7); Neutrophils % (A) 91 %; Platelet Count 204 k/uL (150-450); RBC 4.65 m/uL (3.80-5.40); RDW 15.1 % (11.5-15.5); WBC 11.7 k/uL (3.8-10.6)
[2018-06-21 08:37] LABS: Calcium 8.2 mg/dL (8.4-10.2); Potassium 3.7 mmol/L (3.5-5.1)
[2018-06-21] MEDS: SYMBICORT 160-4.5 MCG INHALER INHALATION SCH ×2 (09:25→19:29)
[2018-06-21] MEDS ORDERED: METOPROLOL TARTRATE 50 MG TAB PO STA (10:08)
--- NOTE | 2018-06-21 10:24 | P.PN ---
Subjective Progress Note Date: 06/20/18 This is an 87-year-old occasion female patient of Dr. Gutiérrez and Dr. Pina and Dr. 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 This would be her second admission be been 2 weeks her last admission was 06/02/2018. Similar pattern of waking up shorjanuary of elena, equiing her inhaless rapid ventricular rate, during that admission to home, with isosorbide 15 mg daily and metoprolol 25 mg 3 times a day, and prednisone taper. She did not require any home O2, has been using nebulizer treatments at least 4 times a day, and this was decreased by Dr. Plasencia to to 2 times a day. Patient was otherwise well, until she woke up again with significant shortness of breath early in the morning, was having palpitations difficulty in breathing, she was hypoxemic, on ER evaluation, no additional nebulizer treatments were given by the son, transported via private car. She has conversational dyspnea, wheeze, patient denies any edema, no pulmonary emboli in the past , she is chronically anticoagulated with eliquis2.5 mg she is chronically on prednisone, per home dose it was a 2.5 mg daily, this is not yet confirmed patient denies any recent sick contacts, family mentions that she is independent with ADLs at home, no recent falls, no sick contacts, no foreign travels. Patient denies any fever or chills, no new cough no new purulence The patient came in for evaluation of [facility] emergency center with a diagnoses of A. fib RVR with heart rate of 156, CHF exacerbation, COPD exacerbation as well. She required BiPAP treatments emergency room. Chest x-ray showed chronic changes without any acute abnormalities borderline cardiomegaly . Hemoglobin 14.7, CO2 29, creatinine 1.02, troponin negative 1, proBNP 50-50, patient is on IV Cardizem for rate control, IV Lasix 40 every 12 hours, IV steroids, albuterol is currently held secondary to fast heart rate and will be shown once rate control has been achieved consult with Dr. Plasencia, and cardiology . last echocardiogram 10/15/2017 from our facility, unknown whether echocardiogram was performed outpatient cardiology office 06/19: Patient states she is feeling better today. She did get up in the shower. She is eating okay has not had any choking. She states she has less shortness of breath with ambulation. She states she does have to get up slowly due to dizziness. She has remained tachycardic with crew leader showing atrial fibrillation with RVR and cardiology has increased Lopressor to 75 mg 3 times daily, continue Cardizem which is currently at 240 mg daily. Discharge plan is to return home. Possible discharge by tomorrow. Review Of Systems: Constitutional: No fever, no chills, no night sweats. No weight change. No weakness, reports fatigue or lethargy. No daytime sleepiness. EENT: No headache. No blurred vision or double vision, no loss of vision. No loss of Hearing, no ringing in the ears, no dizziness. No nasal drainage or congestion. No epistaxis. No sore throat. Lungs: Reports shortness of breath, cough, no sputum production. No wheezing. Reports decreased exercise tolerance, reports dyspnea on exertion Cardiovascular: No chest pain, no lower extremity edema. No palpitations. reports paroxysmal nocturnal dyspnea. No orthopnea. Reports lightheadedness or dizziness. No syncopal episodes. Abdominal: No abdominal pain. No nausea, vomiting. No diarrhea. No constipation. No bloody or tarry stools.. No loss of appetite. Genitourinary: No dysuria, increased frequency, urgency. No urinary retention. Musculoskeletal: No myalgias. No muscle weakness, no gait dysfunction, no frequent falls. No back pain. No neck pain. Integumentary: No wounds, no lesions. No rash or pruritus. No unusual bruising. No change in hair or nails. Neurologic: No aphasia. No facial droop. No change in mentation. No head injury. No headache. No paralysis. No paresthesia. Psychiatric: No depression. No anxiety. No mood swings. Endocrine: No abnormal blood sugars. No weight change. No excessive sweating or thirst. Objective - Vital Signs Vital signs: Vital Signs Temp 97.2 F L 06/20/18 11:48 Pulse 119 H 06/20/18 11:48 Resp 16 06/20/18 11:48 BP 111/64 06/20/18 11:48 Pulse Ox 96 06/20/18 11:48 Intake & Output 06/19/18 06/20/18 06/20/18 18:59 06:59 18:59 Intake Total 1130 530 Balance 1130 530 Weight 79.1 kg 79.1 kg Intake: Intake, IV Titration 50 50 Amount cefTRIAXone 1,000 mg In 50 50 Sodium Chloride 0.9% 50 ml @ 100 mls/hr IVPB Q24HR [facility] Rx#:[id number] Oral 1080 480 Other: Voiding Method Toilet # Voids 2 2 1 - Exam General appearance: cooperative, no distress - EENT Eyes: anicteric sclerae, EOMI, PERRLA, dentition normal, normal appearance ENT: NA/AT, normal oropharynx - Neck Neck: normal ROM - Respiratory Respiratory: bilateral: CTA, negative: diminished, dullness, rales, rhonchi, wheezing, prolonged expiration - Cardiovascular Rhythm: regular Heart sounds: normal: S1, S2 Abnormal Heart Sounds: systolic murmur, no diastolic murmur, no rub, no S3 Gallop, no S4 Gallop, no click, no other - Gastrointestinal General gastrointestinal: normal bowel sounds, soft - Integumentary Integumentary: decreased turgor, normal - Neurologic Neurologic: CNII-XII intact - Musculoskeletal Musculoskeletal: gait normal - Psychiatric Psychiatric: A&O x's 3, appropriate affect, intact judgment & insight - Labs CBC & Chem 7: 06/21/18 07:35 06/21/18 07:35 Labs: Abnormal Lab Results - Last 24 Hours (Table) 06/19/18 06/19/18 06/20/18 Range/Units 16:56 20:56 06:06 WBC (3.8-10.6) k/uL Neutrophils # (1.3-7.7) k/uL Lymphocytes # (1.0-4.8) k/uL Potassium (3.5-5.1) mmol/L BUN (7-17) mg/dL Glucose (74-99) mg/dL POC Glucose (mg/dL) 231 H 163 H 188 H (75-99) mg/dL Calcium (8.4-10.2) mg/dL Total Protein (6.3-8.2) g/dL 06/20/18 06/20/18 06/20/18 Range/Units 07:47 07:47 11:40 WBC 15.1 H (3.8-10.6) k/uL Neutrophils # 14.1 H (1.3-7.7) k/uL Lymphocytes # 0.5 L (1.0-4.8) k/uL Potassium 3.4 L (3.5-5.1) mmol/L BUN 32 H (7-17) mg/dL Glucose 204 H (74-99) mg/dL POC Glucose (mg/dL) 164 H (75-99) mg/dL Calcium 8.1 L (8.4-10.2) mg/dL Total Protein 6.0 L (6.3-8.2) g/dL Microbiology - Last 24 Hours (Table) 06/19/18 12:00 Gram Stain - Preliminary Sputum Assessment and Plan Plan: 1. Acute hypoxemic respiratory failure, multifactorial in nature Paroxysmal nocturnal Dyspnea secondary to moderately severe COPD, patient mentions possibly underlying chronic asthma also multifactorial to include, acute on chronic diastolic heart failure and related to episodes of A. fib with RVR. Component of coronary artery disease not ruled out. Continue Cardizem 240 mg daily, Lopressor 75 mg 3 times daily, azithromycin and ceftriaxone, Symbicort, DuoNeb treatments, Solu-Medrol currently at 60 mg IV every 8 hours, Lasix 40 mg IV every 12 hours to be switched to oral in the morning. Cardiology consult and pulmonary consult appreciated. 2. Acute COPD exacerbation. As in #1 3. Acute on chronic diastolic heart failure last echocardiogram shows normal EF 55-60%. Cardiology consult is appreciated. Continue IV Lasix 40mg every 12 hours with transition to oral in the morning, I&O and daily weights. Monitor electrolytes and renal function. 4. Paroxysmal atrial fibrillation with RVR. Continue Cardizem 240 mg daily, eliquis 2.5 mg twice daily, Lopressor 75 mg 3 times daily. Obtain TSH free T4 T3 5. Mild aortic stenosis, gradient of 21.7 mmHg/12.13 mmHg, mild TR and mild MR , right ventricle systolic pressure of 29 6. Hypertension. Continue losartan 25 mg daily, Lopressor, Cardizem, Imdur. 7. Impaired random blood sugars, hemoglobin C to be obtained 8. DVT prophylaxis. Eliquis. 9. GI prophylaxis. Pepcid. Discharge plan: Return home possibly in the next 24 hours Impression and plan of care have been directed as dictated by the signing physician. Noelle Gilbert nurse practitioner acting as scribe for signing physician.
[2018-06-21 11:13] LABS: Glucose,Whole Blood 217 mg/dL (75-99)
--- NOTE | 2018-06-21 11:36 | P.PN ---
Subjective Progress Note Date: 06/21/18 Principal diagnosis: Acute hypoxemic respiratory failure secondary to an acute exacerbation of diastolic congestive heart failure along with atrial fibrillation with rapid ventricular response. This is a 87-year-old female patient of Dr. Gutiérrez, who was brought into the emergency department per EMS on 06/18/2018 at 5:00 in the morning for evaluation of difficulty breathing, patient woke up this morning feeling palpitations and increasing shortness of breath. When EMS arrived patient was hypoxemic, in severe respiratory distress, quite dyspneic even with conversation , and tachycardic. Patient states she had been coming down with a cold, she had some chills, and some congestion and production of green colored sputum for the last couple days Past medical history is significant for chronic atrial fibrillation on Eliquis, advanced COPD with a baseline FEV1 of 0.72 L or 39% predicted, chronic diastolic congestive heart failure, hypertension, osteoarthritis, permanent pacemaker for sick sinus syndrome. Chest x-ray showed COPD, borderline cardiomegaly. EKG showed A. fib RVR with a rate of 156 , ST and T-wave abnormality suggesting inferolateral ischemia, and evidence of a septal infarct of undetermined age. Lab work showed WBC of 13.8, hemoglobin 14.7, sodium of 134, potassium is 4.3, chloride is 95, CO2 is 29, BUN is 19 and creatinine is 1.02, troponin was negative 1, proBNP was elevated at 5250. Patient was started on IV Lasix at 40 mg every 12 hours, she was started on Cardizem drip for rate control. IV steroids and nebulized treatments were started. On 06/19/2018 patient seen in follow-up on medical surgical floor. She is doing better today, off BiPAP support, did wear it last night. Currently on nasal cannula, at 2 L per nasal cannula and her pulse ox is 96%, she is afebrile , remains in A. fib and the rate is still tachycardic, but although improved. She remains on Cardizem drip for rate control currently at 10 mg per hour. Her heart rate is 116-117 BPM. His labs have been reviewed, no leukocytosis, WBCs 8.1, hemoglobin is 13.9, electrolytes were within normal limits, B1 is 27 creatinine was 0.94. Flu on Zosyn was not detected. TSH was within normal limits. Any chest pain. Lung sounds reveal some end expiratory wheezes, but overall much improved. She remains on IV Lasix, nebulized bronchodilators, yesterday we added Zithromax and Rocephin. She continues on IV Solu-Medrol. The patient is seen again today 06/20/2018 in follow-up on the regular surgical floor. She is currently resting quite comfortably in bed. She denies any worsening shortness of breath, cough or congestion. Early maintaining good O2 saturations in the mid 90s on 2 L/m per nasal cannula. She's been afebrile. Heart rate still tachycardic in the 120s. Blood pressure stable. He is currently on Cardizem 240 mg by mouth daily along with metoprolol 75 mg twice a day. She remains on IV diuretics at 40 mg every 12 hours. Current weight 79.1 kg. Sputum culture pending. She remains on antibiotics and bronchodilators. White count 15.1. Hemoglobin 13.2. Creatinine 1.01. The patient is seen again today 06/21/2018 in follow-up on the cardiac care unit. She is awake and alert in no acute distress. Maintaining good O2 saturations in the upper 90s on 2 L/m per nasal cannula. She's been afebrile. Remains tachycardic in the 120s currently. Sputum culture reveals no growth. White count 11.7. Hemoglobin 13.5. Creatinine 0.96. She remains on bronchodilators, Symbicort, IV Solu-Medrol. Antibiotics in the form of ceftriaxone and azithromycin. Beta tai increased again today. Objective - Vital Signs Vital signs: Vital Signs Temp 97.1 F L 06/21/18 08:00 Pulse 124 H 06/21/18 08:00 Resp 18 06/21/18 08:00 BP 133/71 06/21/18 08:00 Pulse Ox 98 06/21/18 08:00 Intake & Output 06/20/18 06/21/18 06/21/18 18:59 06:59 18:59 Intake Total 770 800 180 Balance 770 800 180 Weight 79.1 kg 79.2 kg Intake: Intake, IV Titration 50 Amount cefTRIAXone 1,000 mg In 50 Sodium Chloride 0.9% 50 ml @ 100 mls/hr IVPB Q24HR [facility] Rx#:[id number] Oral 720 800 180 Other: Voiding Method Toilet # Voids 1 3 - Exam GENERAL EXAM: Alert, comfortable in no apparent distress. On 2 L/m per nasal cannula HEAD: Normocephalic. EYES: Normal reaction of pupils, equal size. NOSE: Clear with pink turbinates. THROAT: No erythema or exudates. NECK: No masses, no JVD. CHEST: No chest wall deformity. LUNGS: Equal air entry with scattered rhonchi, end expiratory wheeze. CVS: S1 and S2 normal with no audible murmur, regular rhythm. ABDOMEN: No hepatosplenomegaly, normal bowel sounds, no guarding or rigidity. SPINE: No scoliosis or deformity SKIN: No rashes CENTRAL NERVOUS SYSTEM: No focal deficits, tone is normal in all 4 extremities. EXTREMITIES: There is no peripheral edema. No clubbing, no cyanosis. Peripheral pulses are intact. - Labs CBC & Chem 7: 06/21/18 07:35 06/21/18 07:35 Labs: Abnormal Lab Results - Last 24 Hours (Table) 06/20/18 06/20/18 06/20/18 Range/Units 11:40 16:22 20:51 WBC (3.8-10.6) k/uL Neutrophils # (1.3-7.7) k/uL Lymphocytes # (1.0-4.8) k/uL BUN (7-17) mg/dL Glucose (74-99) mg/dL POC Glucose (mg/dL) 164 H 181 H 168 H (75-99) mg/dL Calcium (8.4-10.2) mg/dL 06/21/18 06/21/18 06/21/18 Range/Units 05:49 07:35 07:35 WBC 11.7 H (3.8-10.6) k/uL Neutrophils # 10.6 H (1.3-7.7) k/uL Lymphocytes # 0.7 L (1.0-4.8) k/uL BUN 36 H (7-17) mg/dL Glucose 133 H (74-99) mg/dL POC Glucose (mg/dL) 174 H (75-99) mg/dL Calcium 8.2 L (8.4-10.2) mg/dL 06/21/18 Range/Units 11:11 WBC (3.8-10.6) k/uL Neutrophils # (1.3-7.7) k/uL Lymphocytes # (1.0-4.8) k/uL BUN (7-17) mg/dL Glucose (74-99) mg/dL POC Glucose (mg/dL) 217 H (75-99) mg/dL Calcium (8.4-10.2) mg/dL Microbiology - Last 24 Hours (Table) 06/19/18 12:00 Gram Stain - Final Sputum Sputum Culture - Final Assessment and Plan Assessment: Assessment: #1. Acute hypoxemic respiratory failure secondary to acute exacerbation of diastolic congestive heart failure #2. A. fib RVR #3. Acute exacerbation of COPD and acute purulent tracheobronchitis #4. Severe COPD, with a FEV1 of 0.72 L or 39% of predicted, Gold stage III #5. Chronic systolic congestive heart failure. Today's echocardiogram showed left ventricle systolic function with EF of 60-65% #6. Chronic A. fib on Eliquis #7. Previous episodes of pneumonia #8. Hypertension #9. Nicotine dependence, in remission, carries [id number] smoking history #10. Permanent pacemaker for sick sinus syndrome Plan: The patient was seen and evaluated by Dr. Rajan. She has been converted to oral diuretics. Beta blockers increased. She remains on antibiotics, bronchodilators and IV Solu-Medrol. We will increase her activity as tolerated. We'll continue to follow and make further recommendations based on her clinical status. I, the cosigning physician, performed a history & physical examination of the patient. Lungs sounds with crackles in the bases, bilateral wheezing. Diminished. Maintaining good O2 saturations in the 90s on 2 L/m per nasal cannula. I discussed the assessment and plan of care with my nurse practitioner , Yessica Doe. I attest to the above note as dictated by her.
--- NOTE | 2018-06-21 14:23 | P.PN ---
Subjective Progress Note Date: 06/21/18 This is an 87-year-old female with known history of paroxysmal A. fib who has been on beta blockers and Cardizem, anticoagulated with Eliquis. Past history of nicotine dependence and also has COPD with exacerbation. She presented to the hospital on this occasion mainly with symptoms of palpitations and was found to be in atrial fibrillation. Patient was seen in consultation yesterday by Dr. RODRI Irizarry. Patient was seen and examined today, overall does state that she is feeling better, dose of beta tai was increased, we will also repeat an EKG. Echocardiogram with Doppler study revealed an ejection fraction of 60- 65%. White blood cell count 15.5, hemoglobin 13.2, platelet count 237. Sodium 139, potassium 3.4, BUN 32, creatinine 1.0. 06/21/2018 Patient seen and examined this morning, feels well, quite eager to be discharged home, heart rate still continues to be elevated. We will give a one- time dose of metoprolol 100 and increase the metoprolol to 75 3 times a day. Blood pressure 112/50 with a heart rate in the 90s, 96% on 2 L of oxygen. White blood cell count 11.7, hemoglobin 13.5, platelet count 204. Sodium 140, potassium 3.7, BUN 36, creatinine 0.9. Objective - Vital Signs Vital signs: Vital Signs Temp 97.1 F L 06/21/18 08:00 Pulse 93 06/21/18 11:41 Resp 18 06/21/18 11:41 BP 112/56 06/21/18 11:41 Pulse Ox 96 06/21/18 11:41 Intake & Output 06/20/18 06/21/18 06/21/18 18:59 06:59 18:59 Intake Total 770 800 180 Balance 770 800 180 Weight 79.1 kg 79.2 kg Intake: Intake, IV Titration 50 Amount cefTRIAXone 1,000 mg In 50 Sodium Chloride 0.9% 50 ml @ 100 mls/hr IVPB Q24HR [facility] Rx#:[id number] Oral 720 800 180 Other: Voiding Method Toilet # Voids 1 3 - Exam GENERAL EXAM: Alert, active, comfortable in no apparent distress. On 2 L/m per nasal cannula HEAD: Normocephalic. EYES: Normal reaction of pupils, equal size. NOSE: Clear with pink turbinates. THROAT: No erythema or exudates. NECK: No masses, no JVD. CHEST: No chest wall deformity. LUNGS: Equal air entry with scattered rhonchi, end expiratory wheeze.. CVS: S1 and S2 normal with no audible murmur, regular rhythm. ABDOMEN: No hepatosplenomegaly, normal bowel sounds, no guarding or rigidity. SPINE: No scoliosis or deformity SKIN: No rashes CENTRAL NERVOUS SYSTEM: No focal deficits, tone is normal in all 4 extremities. EXTREMITIES: There is no peripheral edema. No clubbing, no cyanosis. Peripheral pulses are intact. - Labs CBC & Chem 7: 06/21/18 07:35 06/21/18 07:35 Labs: Abnormal Lab Results - Last 24 Hours (Table) 06/20/18 06/20/18 06/21/18 Range/Units 16:22 20:51 05:49 WBC (3.8-10.6) k/uL Neutrophils # (1.3-7.7) k/uL Lymphocytes # (1.0-4.8) k/uL BUN (7-17) mg/dL Glucose (74-99) mg/dL POC Glucose (mg/dL) 181 H 168 H 174 H (75-99) mg/dL Calcium (8.4-10.2) mg/dL 06/21/18 06/21/18 06/21/18 Range/Units 07:35 07:35 11:11 WBC 11.7 H (3.8-10.6) k/uL Neutrophils # 10.6 H (1.3-7.7) k/uL Lymphocytes # 0.7 L (1.0-4.8) k/uL BUN 36 H (7-17) mg/dL Glucose 133 H (74-99) mg/dL POC Glucose (mg/dL) 217 H (75-99) mg/dL Calcium 8.2 L (8.4-10.2) mg/dL Microbiology - Last 24 Hours (Table) 06/19/18 12:00 Gram Stain - Final Sputum Sputum Culture - Final Assessment and Plan Plan: Assessment: #1. Acute hypoxemic respiratory failure secondary to acute exacerbation of diastolic congestive heart failure #2. A. fib RVR, chronic persistent, on Eliquis #3. Acute exacerbation of COPD and acute purulent tracheobronchitis #4. Severe COPD, with a FEV1 of 0.72 L or 39% of predicted, Gold stage III #5. Chronic diastolic congestive heart failure. Today's echocardiogram showed left ventricle systolic function with EF of 60-65% #7. Previous episodes of pneumonia #8. Hypertension #9. Nicotine dependence, in remission, carries [id number] smoking history #10. Permanent pacemaker for sick sinus syndrome Plan We'll increase the dose of beta tai today, continue to monitor for 24 hours. DNP note has been reviewed, I agree with a documented findings and plan of care. Patient was seen and examined.
--- NOTE | 2018-06-21 15:00 | P.PN ---
Subjective Progress Note Date: 06/21/18 This is an 87-year-old occasion female patient of Dr. Gutiérrez and Dr. Pina and Dr. 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 This would be her second admission be been 2 weeks her last admission was 06/02/2018. Similar pattern of waking up shorness of elena, equiing her inhaless rapid ventricular rate, during that admission to home, with isosorbide 15 mg daily and metoprolol 25 mg 3 times a day, and prednisone taper. She did not require any home O2, has been using nebulizer treatments at least 4 times a day, and this was decreased by Dr. Plasencia to to 2 times a day. Patient was otherwise well, until she woke up again with significant shortness of breath early in the morning, was having palpitations difficulty in breathing, she was hypoxemic, on ER evaluation, no additional nebulizer treatments were given by the son, transported via private car. She has conversational dyspnea, wheeze, patient denies any edema, no pulmonary emboli in the past , she is chronically anticoagulated with eliquis2.5 mg she is chronically on prednisone, per home dose it was a 2.5 mg daily, this is not yet confirmed patient denies any recent sick contacts, family mentions that she is independent with ADLs at home, no recent falls, no sick contacts, no foreign travels. Patient denies any fever or chills, no new cough no new purulence The patient came in for evaluation of [facility] emergency center with a diagnoses of A. fib RVR with heart rate of 156, CHF exacerbation, COPD exacerbation as well. She required BiPAP treatments emergency room. Chest x-ray showed chronic changes without any acute abnormalities borderline cardiomegaly . Hemoglobin 14.7, CO2 29, creatinine 1.02, troponin negative 1, proBNP 50-50, patient is on IV Cardizem for rate control, IV Lasix 40 every 12 hours, IV steroids, albuterol is currently held secondary to fast heart rate and will be shown once rate control has been achieved consult with Dr. Plasencia, and cardiology . last echocardiogram 10/15/2017 from our facility, unknown whether echocardiogram was performed outpatient cardiology office 06/19: Patient states she is feeling better today. She did get up in the shower. She is eating okay has not had any choking. She states she has less shortness of breath with ambulation. She states she does have to get up slowly due to dizziness. She has remained tachycardic with child monitor showing atrial fibrillation with RVR and cardiology has increased Lopressor to 75 mg 3 times daily, continue Cardizem which is currently at 240 mg daily. Discharge plan is to return home. Possible discharge by tomorrow. 06/20: Patient states that her shortness of breath is better today. We will plan to decrease Solu-Medrol to 40 every 8 hours. Heart rate remains uncontrolled and patient was given a stat dose of Lopressor 100 mg as morning. She is continued on Lopressor 75 mg twice daily and Cardizem CD 240 mg daily. Currently on Lasix 40 mg twice daily oral. Pulse ox is 96% on 2 L, heart rate is running anywhere between 93 and 124 today. She has been afebrile. White count is 11.7, hemoglobin 13.5, creatinine 0.96. Blood sugars running between 133-217 secondary to steroids. TSH 1.190. Review Of Systems: Constitutional: No fever, no chills, no night sweats. No weight change. No weakness, reports fatigue or lethargy. No daytime sleepiness. EENT: No headache. No blurred vision or double vision, no loss of vision. No loss of Hearing, no ringing in the ears, no dizziness. No nasal drainage or congestion. No epistaxis. No sore throat. Lungs: Reports shortness of breath, cough, no sputum production. No wheezing. Reports decreased exercise tolerance, reports dyspnea on exertion Cardiovascular: No chest pain, no lower extremity edema. No palpitations. reports paroxysmal nocturnal dyspnea. No orthopnea. Reports lightheadedness or dizziness. No syncopal episodes. Abdominal: No abdominal pain. No nausea, vomiting. No diarrhea. No constipation. No bloody or tarry stools.. No loss of appetite. Genitourinary: No dysuria, increased frequency, urgency. No urinary retention. Musculoskeletal: No myalgias. No muscle weakness, no gait dysfunction, no frequent falls. No back pain. No neck pain. Integumentary: No wounds, no lesions. No rash or pruritus. No unusual bruising. No change in hair or nails. Neurologic: No aphasia. No facial droop. No change in mentation. No head injury. No headache. No paralysis. No paresthesia. Psychiatric: No depression. No anxiety. No mood swings. Endocrine: Reports abnormal blood sugars. No weight change. No excessive sweating or thirst. Objective - Vital Signs Vital signs: Vital Signs Temp 97.1 F L 06/21/18 08:00 Pulse 124 H 06/21/18 08:00 Resp 18 06/21/18 08:00 BP 133/71 06/21/18 08:00 Pulse Ox 98 06/21/18 08:00 Intake & Output 06/20/18 06/21/18 06/21/18 18:59 06:59 18:59 Intake Total 770 800 180 Balance 770 800 180 Weight 79.1 kg 79.2 kg Intake: Intake, IV Titration 50 Amount cefTRIAXone 1,000 mg In 50 Sodium Chloride 0.9% 50 ml @ 100 mls/hr IVPB Q24HR [facility] Rx#:[id number] Oral 720 800 180 Other: Voiding Method Toilet # Voids 1 3 - Exam General appearance: cooperative, no distress, patient is sitting on the edge of the bed and appears to be comfortable. - EENT Eyes: anicteric sclerae, EOMI, PERRLA, dentition normal, normal appearance ENT: NA/AT, normal oropharynx - Neck Neck: normal ROM - Respiratory Respiratory: bilateral: CTA, negative: diminished, dullness, rales, rhonchi, wheezing, prolonged expiration - Cardiovascular Rhythm: regular Heart sounds: normal: S1, S2 Abnormal Heart Sounds: systolic murmur, no diastolic murmur, no rub, no S3 Gallop, no S4 Gallop, no click, no other - Gastrointestinal General gastrointestinal: normal bowel sounds, soft - Integumentary Integumentary: decreased turgor, normal - Neurologic Neurologic: CNII-XII intact - Musculoskeletal Musculoskeletal: gait normal - Psychiatric Psychiatric: A&O x's 3, appropriate affect, intact judgment & insight - Labs CBC & Chem 7: 06/21/18 07:35 06/21/18 07:35 Labs: Abnormal Lab Results - Last 24 Hours (Table) 06/20/18 06/20/18 06/20/18 Range/Units 11:40 16:22 20:51 WBC (3.8-10.6) k/uL Neutrophils # (1.3-7.7) k/uL Lymphocytes # (1.0-4.8) k/uL BUN (7-17) mg/dL Glucose (74-99) mg/dL POC Glucose (mg/dL) 164 H 181 H 168 H (75-99) mg/dL Calcium (8.4-10.2) mg/dL 06/21/18 06/21/18 06/21/18 Range/Units 05:49 07:35 07:35 WBC 11.7 H (3.8-10.6) k/uL Neutrophils # 10.6 H (1.3-7.7) k/uL Lymphocytes # 0.7 L (1.0-4.8) k/uL BUN 36 H (7-17) mg/dL Glucose 133 H (74-99) mg/dL POC Glucose (mg/dL) 174 H (75-99) mg/dL Calcium 8.2 L (8.4-10.2) mg/dL Microbiology - Last 24 Hours (Table) 06/19/18 12:00 Gram Stain - Final Sputum Sputum Culture - Final Assessment and Plan Plan: 1. Acute hypoxemic respiratory failure, multifactorial in nature Paroxysmal nocturnal Dyspnea secondary to moderately severe COPD, patient mentions possibly underlying chronic asthma also multifactorial to include, acute on chronic diastolic heart failure and related to episodes of A. fib with RVR. Component of coronary artery disease not ruled out. Continue Cardizem 240 mg daily, Lopressor 75 mg 3 times daily, azithromycin and ceftriaxone, Symbicort, DuoNeb treatments, Solu-Medrol decreased to 40 mg IV every 8 hours, Lasix 40 mg oral every 12 hours. Cardiology consult and pulmonary consult appreciated. 2. Acute COPD exacerbation. As in #1 3. Acute on chronic diastolic heart failure last echocardiogram shows normal EF 55-60%. Cardiology consult is appreciated. Continue IV Lasix 40mg every 12 hours with transition to oral in the morning, I&O and daily weights. Monitor electrolytes and renal function. 4. Paroxysmal atrial fibrillation with RVR. Continue Cardizem 240 mg daily, eliquis 2.5 mg twice daily, Lopressor 75 mg 3 times daily. Patient received additional dose of Lopressor 100 mg morning. 5. Mild aortic stenosis, gradient of 21.7 mmHg/12.13 mmHg, mild TR and mild MR , right ventricle systolic pressure of 29 6. Hypertension. Continue losartan 25 mg daily, Lopressor, Cardizem, Imdur. 7. Impaired random blood sugars, hemoglobin C to be obtained 8. DVT prophylaxis. Eliquis. 9. GI prophylaxis. Pepcid. Discharge plan: Return home possibly in the next 24 hours Impression and plan of care have been directed as dictated by the signing physician. Noelle Gilbert nurse practitioner acting as scribe for signing physician.
[2018-06-21] MEDS: methylPREDNISolone SOD SUCCI 40 MG/ML 1 ML VIAL IV SCH ×2 (15:39→23:07)
[2018-06-21] MEDS: FUROSEMIDE 40 MG TAB PO SCH (15:39)
[2018-06-21 16:30] LABS: Glucose,Whole Blood 195 mg/dL (75-99)
[2018-06-21 20:56] LABS: Glucose,Whole Blood 225 mg/dL (75-99)
[2018-06-21] MEDS: MELATONIN 3 MG TABLET PO SCH (21:36)
[2018-06-22 06:55] LABS: Glucose,Whole Blood 128 mg/dL (75-99)
[2018-06-22] MEDS: INSULIN ASPART 100 UNIT/ML 1 ML 10 ML VIAL SQ SCH ×4 (07:18→20:52)
[2018-06-22] MEDS: SYMBICORT 160-4.5 MCG INHALER INHALATION SCH ×2 (08:14→19:43)
[2018-06-22] MEDS: APIXABAN 2.5 MG TABLET PO SCH ×2 (08:42→20:55)
[2018-06-22] MEDS: PANTOPRAZOLE 40 MG TABLET PO SCH (08:42)
[2018-06-22] MEDS: methylPREDNISolone SOD SUCCI 40 MG/ML 1 ML VIAL IV SCH (08:42)
[2018-06-22] MEDS: METOPROLOL TARTRATE 25 MG TAB PO SCH ×3 (08:42→20:56)
[2018-06-22] MEDS: ASPIRIN 81 MG PO SCH (08:42)
[2018-06-22] MEDS: FUROSEMIDE 40 MG TAB PO SCH ×2 (08:43→17:06)
[2018-06-22] MEDS: DILTIAZEM CD 240 MG CAP.ER.24H PO SCH (10:42)
[2018-06-22] MEDS: AZITHROMYCIN 500 MG TAB PO SCH (10:42)
[2018-06-22 11:27] LABS: Glucose,Whole Blood 173 mg/dL (75-99)
[2018-06-22] MEDS ORDERED: DILTIAZEM CD 120 MG CAP.ER.24H PO STA (12:37)
--- NOTE | 2018-06-22 14:02 | P.PN ---
Subjective Progress Note Date: 06/22/18 Principal diagnosis: Acute hypoxemic respiratory failure secondary to an acute exacerbation of diastolic congestive heart failure along with atrial fibrillation with rapid ventricular response. This is a 87-year-old female patient of Dr. Gutiérrez, who was brought into the emergency department per EMS on 06/18/2018 at 5:00 in the morning for evaluation of difficulty breathing, patient woke up this morning feeling palpitations and increasing shortness of breath. When EMS arrived patient was hypoxemic, in severe respiratory distress, quite dyspneic even with conversation , and tachycardic. Patient states she had been coming down with a cold, she had some chills, and some congestion and production of green colored sputum for the last couple days Past medical history is significant for chronic atrial fibrillation on Eliquis, advanced COPD with a baseline FEV1 of 0.72 L or 39% predicted, chronic diastolic congestive heart failure, hypertension, osteoarthritis, permanent pacemaker for sick sinus syndrome. Chest x-ray showed COPD, borderline cardiomegaly. EKG showed A. fib RVR with a rate of 156 , ST and T-wave abnormality suggesting inferolateral ischemia, and evidence of a septal infarct of undetermined age. Lab work showed WBC of 13.8, hemoglobin 14.7, sodium of 134, potassium is 4.3, chloride is 95, CO2 is 29, BUN is 19 and creatinine is 1.02, troponin was negative 1, proBNP was elevated at 5250. Patient was started on IV Lasix at 40 mg every 12 hours, she was started on Cardizem drip for rate control. IV steroids and nebulized treatments were started. On 06/19/2018 patient seen in follow-up on medical surgical floor. She is doing better today, off BiPAP support, did wear it last night. Currently on nasal cannula, at 2 L per nasal cannula and her pulse ox is 96%, she is afebrile , remains in A. fib and the rate is still tachycardic, but although improved. She remains on Cardizem drip for rate control currently at 10 mg per hour. Her heart rate is 116-117 BPM. His labs have been reviewed, no leukocytosis, WBCs 8.1, hemoglobin is 13.9, electrolytes were within normal limits, B1 is 27 creatinine was 0.94. Flu on Zosyn was not detected. TSH was within normal limits. Any chest pain. Lung sounds reveal some end expiratory wheezes, but overall much improved. She remains on IV Lasix, nebulized bronchodilators, yesterday we added Zithromax and Rocephin. She continues on IV Solu-Medrol. The patient is seen again today 06/20/2018 in follow-up on the regular surgical floor. She is currently resting quite comfortably in bed. She denies any worsening shortness of breath, cough or congestion. Early maintaining good O2 saturations in the mid 90s on 2 L/m per nasal cannula. She's been afebrile. Heart rate still tachycardic in the 120s. Blood pressure stable. He is currently on Cardizem 240 mg by mouth daily along with metoprolol 75 mg twice a day. She remains on IV diuretics at 40 mg every 12 hours. Current weight 79.1 kg. Sputum culture pending. She remains on antibiotics and bronchodilators. White count 15.1. Hemoglobin 13.2. Creatinine 1.01. The patient is seen again today 06/21/2018 in follow-up on the cardiac care unit. She is awake and alert in no acute distress. Maintaining good O2 saturations in the upper 90s on 2 L/m per nasal cannula. She's been afebrile. Remains tachycardic in the 120s currently. Sputum culture reveals no growth. White count 11.7. Hemoglobin 13.5. Creatinine 0.96. She remains on bronchodilators, Symbicort, IV Solu-Medrol. Antibiotics in the form of ceftriaxone and azithromycin. Beta tai increased again today. She is seen again today 06/22/2000 follow-up on the regular medical floor. She is currently resting quite comfortably in bed. She is awake and alert in no acute distress. Maintaining good O2 saturations in the upper 90s on 2 L/m per nasal cannula. She's afebrile. She does remain in atrial fibrillation slightly tachycardic in the 110's. Anticoagulated with Eliquis. She denies any chest pain, palpitations, lightheadedness or dizziness. No worsening shortness of breath, cough or congestion. Sputum culture negative. He remains on ceftriaxone and azithromycin. Objective - Vital Signs Vital signs: Vital Signs Temp 97.6 F 06/22/18 12:21 Pulse 106 H 06/22/18 12:21 Resp 20 06/22/18 05:00 BP 120/80 06/22/18 12:21 Pulse Ox 98 06/22/18 12:21 Intake & Output 06/21/18 06/22/18 06/22/18 18:59 06:59 18:59 Intake Total 760 400 200 Balance 760 400 200 Intake: Oral 760 400 200 Other: Voiding Method Toilet Toilet # Voids 6 1 - Exam GENERAL EXAM: Alert, comfortable in no apparent distress. On 2 L/m per nasal cannula HEAD: Normocephalic. EYES: Normal reaction of pupils, equal size. NOSE: Clear with pink turbinates. THROAT: No erythema or exudates. NECK: No masses, no JVD. CHEST: No chest wall deformity. LUNGS: Equal air entry with scattered rhonchi, end expiratory wheeze. CVS: S1 and S2 normal with no audible murmur, regular rhythm. ABDOMEN: No hepatosplenomegaly, normal bowel sounds, no guarding or rigidity. SPINE: No scoliosis or deformity SKIN: No rashes CENTRAL NERVOUS SYSTEM: No focal deficits, tone is normal in all 4 extremities. EXTREMITIES: There is no peripheral edema. No clubbing, no cyanosis. Peripheral pulses are intact. - Labs CBC & Chem 7: 06/21/18 07:35 06/21/18 07:35 Labs: Abnormal Lab Results - Last 24 Hours (Table) 06/21/18 06/21/18 06/22/18 Range/Units 16:29 20:54 06:54 POC Glucose (mg/dL) 195 H 225 H 128 H (75-99) mg/dL 06/22/18 Range/Units 11:25 POC Glucose (mg/dL) 173 H (75-99) mg/dL Microbiology - Last 24 Hours (Table) 06/19/18 12:00 Gram Stain - Final Sputum Sputum Culture - Final Assessment and Plan Assessment: Assessment: #1. Acute hypoxemic respiratory failure secondary to acute exacerbation of diastolic congestive heart failure #2. A. fib RVR #3. Acute exacerbation of COPD and acute purulent tracheobronchitis #4. Severe COPD, with a FEV1 of 0.72 L or 39% of predicted, Gold stage III #5. Chronic systolic congestive heart failure. Today's echocardiogram showed left ventricle systolic function with EF of 60-65% #6. Chronic A. fib on Eliquis #7. Previous episodes of pneumonia #8. Hypertension #9. Nicotine dependence, in remission, carries [id number] smoking history #10. Permanent pacemaker for sick sinus syndrome Plan: The patient was seen and evaluated by Dr. Rajan. She is currently stable from the pulmonary standpoint. We'll continue with the current treatment plan. We will increase her activity as tolerated. We'll continue to follow and make further recommendations based on her clinical status. I, the cosigning physician, performed a history & physical examination of the patient. Lungs sounds with crackles in the bases, bilateral wheezing. Diminished. Maintaining good O2 saturations in the 90s on 2 L/m per nasal cannula. I discussed the assessment and plan of care with my nurse practitioner , Yessica Doe. I attest to the above note as dictated by her.
--- NOTE | 2018-06-22 14:08 | P.PN ---
Subjective This is a pleasant 87-year-old female past medical history significant for paroxysmal atrial fibrillation on long-term anticoagulation, history of diastolic heart failure, COPD, hypertension and previous pacemaker implantation. She follows with Dr. Means in the office. She is currently being hospitalized for an acute exacerbation of COPD as well as atrial fibrillation with rapid ventricular response. Echocardiogram obtained on this admission reveals preserved left ventricular systolic function with ejection fraction 60-65%. Her beta tai was increased yesterday to 75 mg 3 times a day for ongoing elevated heart rates. Otherwise maintained on Eliquis 2.5 mg twice a day, aspirin 81 mg daily, diltiazem 240 mg daily and lasix 40 mg by mouth twice a day. She is also receiving steroids and antibiotics. Blood pressure today 120/80 heart rate 106 afebrile maintaining oxygen saturation on nasal cannula. She is seen and examined sitting up at the bedside with family in the room. She denies symptoms of chest pain, shortness of breath, dizziness or palpitations. GENERAL: Well-appearing, well-nourished and in no acute distress. NECK: Supple without JVD or thyromegaly. LUNGS: Breath sounds clear to auscultation bilaterally. Respiration equal and unlabored. Faint expiratory wheeze noted. No rales or rhonchi.. HEART: Irregular rate and rhythm without murmurs, rubs or gallops. S1 and S2 heard. EXTREMITIES: Normal range of motion, no edema. No clubbing or cyanosis. Peripheral pulses intact. ASSESSMENT Acute hypoxic respiratory failure Acute on chronic exacerbation of COPD Paroxysmal atrial fibrillation on long-term anticoagulation with rapid ventricular response History of chronic diastolic heart failure, currently euvolemic History of permanent pacemaker implantation secondary to sick sinus syndrome, last pacemaker check indicates she is in a-fib 7% of the time. Hypertension Former nicotine dependence PLAN Increase cardizem to 300 mg daily and continue lopressor at 75 mg TID. Stable from a cardiac perspective. Follow up with Dr. Means in 2-3 weeks. Nurse Practitioner note has been reviewed, I agree with a documented findings and plan of care. Patient was seen and examined. Objective - Vital Signs Vital signs: Vital Signs Temp 97.6 F 06/22/18 12:21 Pulse 106 H 06/22/18 12:21 Resp 20 06/22/18 05:00 BP 120/80 06/22/18 12:21 Pulse Ox 98 12/20/18 12:21 Intake & Output 06/21/18 06/22/18 06/22/18 18:59 06:59 18:59 Intake Total 760 400 200 Balance 760 400 200 Intake: Oral 760 400 200 Other: Voiding Method Toilet Toilet # Voids 6 1 - Labs CBC & Chem 7: 06/21/18 07:35 06/21/18 07:35 Labs: Abnormal Lab Results - Last 24 Hours (Table) 06/21/18 06/21/18 06/22/18 Range/Units 16:29 20:54 06:54 POC Glucose (mg/dL) 195 H 225 H 128 H (75-99) mg/dL 06/22/18 Range/Units 11:25 POC Glucose (mg/dL) 173 H (75-99) mg/dL Microbiology - Last 24 Hours (Table) 06/19/18 12:00 Gram Stain - Final Sputum Sputum Culture - Final
--- NOTE | 2018-06-22 14:33 | P.PN ---
Subjective Progress Note Date: 06/22/18 This is an 87-year-old occasion female patient of Dr. Gutiérrez and Dr. Pina and Dr. 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 This would be her second admission be been 2 weeks her last admission was 06/02/2018. Similar pattern of waking up shorjanuary of elena, equiing her inhaless rapid ventricular rate, during that admission to home, with isosorbide 15 mg daily and metoprolol 25 mg 3 times a day, and prednisone taper. She did not require any home O2, has been using nebulizer treatments at least 4 times a day, and this was decreased by Dr. Plasencia to to 2 times a day. Patient was otherwise well, until she woke up again with significant shortness of breath early in the morning, was having palpitations difficulty in breathing, she was hypoxemic, on ER evaluation, no additional nebulizer treatments were given by the son, transported via private car. She has conversational dyspnea, wheeze, patient denies any edema, no pulmonary emboli in the past , she is chronically anticoagulated with eliquis2.5 mg she is chronically on prednisone, per home dose it was a 2.5 mg daily, this is not yet confirmed patient denies any recent sick contacts, family mentions that she is independent with ADLs at home, no recent falls, no sick contacts, no foreign travels. Patient denies any fever or chills, no new cough no new purulence The patient came in for evaluation of [facility] emergency center with a diagnoses of A. fib RVR with heart rate of 156, CHF exacerbation, COPD exacerbation as well. She required BiPAP treatments emergency room. Chest x-ray showed chronic changes without any acute abnormalities borderline cardiomegaly . Hemoglobin 14.7, CO2 29, creatinine 1.02, troponin negative 1, proBNP 50-50, patient is on IV Cardizem for rate control, IV Lasix 40 every 12 hours, IV steroids, albuterol is currently held secondary to fast heart rate and will be shown once rate control has been achieved consult with Dr. Plasencia, and cardiology . last echocardiogram 10/15/2017 from our facility, unknown whether echocardiogram was performed outpatient cardiology office 06/19: Patient states she is feeling better today. She did get up in the shower. She is eating okay has not had any choking. She states she has less shortness of breath with ambulation. She states she does have to get up slowly due to dizziness. She has remained tachycardic with imaging tech showing atrial fibrillation with RVR and cardiology has increased Lopressor to 75 mg 3 times daily, continue Cardizem which is currently at 240 mg daily. Discharge plan is to return home. Possible discharge by tomorrow. 06/20: Patient states that her shortness of breath is better today. We will plan to decrease Solu-Medrol to 40 every 8 hours. Heart rate remains uncontrolled and patient was given a stat dose of Lopressor 100 mg as morning. She is continued on Lopressor 75 mg twice daily and Cardizem CD 240 mg daily. Currently on Lasix 40 mg twice daily oral. Pulse ox is 96% on 2 L, heart rate is running anywhere between 93 and 124 today. She has been afebrile. White count is 11.7, hemoglobin 13.5, creatinine 0.96. Blood sugars running between 133-217 secondary to steroids. TSH 1.190. 06/22: This morning at the nurses started patient, heart rate was 140, she is currently at 120s. Patient denies having any palpitations, shortness of breath , chest pain. Cardiology has ordered Cardizem CD 120 mg once followed by 300 mg daily starting tomorrow, Lopressor remains at 75 mg 3 times daily. Blood Glucose Running between 128 and 225. IV Solu-Medrol will be decreased to 40 mg every 12 hours and start prednisone in the morning. Review Of Systems: Constitutional: No fever, no chills, no night sweats. No weight change. No weakness, reports fatigue or lethargy. No daytime sleepiness. EENT: No headache. No blurred vision or double vision, no loss of vision. No loss of Hearing, no ringing in the ears, no dizziness. No nasal drainage or congestion. No epistaxis. No sore throat. Lungs: denies shortness of breath, cough, no sputum production. No wheezing. Reports decreased exercise tolerance, reports dyspnea on exertion Cardiovascular: No chest pain, no lower extremity edema. No palpitations. reports paroxysmal nocturnal dyspnea. No orthopnea. Reports lightheadedness or dizziness. No syncopal episodes. Abdominal: No abdominal pain. No nausea, vomiting. No diarrhea. No constipation. No bloody or tarry stools.. No loss of appetite. Genitourinary: No dysuria, increased frequency, urgency. No urinary retention. Musculoskeletal: No myalgias. No muscle weakness, no gait dysfunction, no frequent falls. No back pain. No neck pain. Integumentary: No wounds, no lesions. No rash or pruritus. No unusual bruising. No change in hair or nails. Neurologic: No aphasia. No facial droop. No change in mentation. No head injury. No headache. No paralysis. No paresthesia. Psychiatric: No depression. No anxiety. No mood swings. Endocrine: Reports abnormal blood sugars. No weight change. No excessive sweating or thirst. Objective - Vital Signs Vital signs: Vital Signs Temp 97.6 F 06/22/18 12:21 Pulse 106 H 06/22/18 12:21 Resp 20 06/22/18 05:00 BP 120/80 06/22/18 12:21 Pulse Ox 98 06/22/18 12:21 Intake & Output 06/21/18 06/22/18 06/22/18 18:59 06:59 18:59 Intake Total 760 400 200 Balance 760 400 200 Intake: Oral 760 400 200 Other: Voiding Method Toilet Toilet # Voids 6 1 - Exam General appearance: cooperative, no distress, patient is sitting on the edge of the bed and appears to be comfortable and in no acute distress. - EENT Eyes: anicteric sclerae, EOMI, PERRLA, dentition normal, normal appearance ENT: NA/AT, normal oropharynx - Neck Neck: normal ROM - Respiratory Respiratory: bilateral: CTA, negative: diminished, dullness, rales, rhonchi, wheezing, prolonged expiration - Cardiovascular Rhythm: regular Heart sounds: normal: S1, S2 Abnormal Heart Sounds: systolic murmur, no diastolic murmur, no rub, no S3 Gallop, no S4 Gallop, no click, no other - Gastrointestinal General gastrointestinal: normal bowel sounds, soft - Integumentary Integumentary: decreased turgor, normal - Neurologic Neurologic: CNII-XII intact - Musculoskeletal Musculoskeletal: gait normal - Psychiatric Psychiatric: A&O x's 3, appropriate affect, intact judgment & insight - Labs CBC & Chem 7: 06/21/18 07:35 06/21/18 07:35 Labs: Abnormal Lab Results - Last 24 Hours (Table) 06/21/18 06/21/18 06/22/18 Range/Units 16:29 20:54 06:54 POC Glucose (mg/dL) 195 H 225 H 128 H (75-99) mg/dL 06/22/18 Range/Units 11:25 POC Glucose (mg/dL) 173 H (75-99) mg/dL Microbiology - Last 24 Hours (Table) 06/19/18 12:00 Gram Stain - Final Sputum Sputum Culture - Final Assessment and Plan Plan: 1. Acute hypoxemic respiratory failure, multifactorial in nature Paroxysmal nocturnal Dyspnea secondary to moderately severe COPD, patient mentions possibly underlying chronic asthma also multifactorial to include, acute on chronic diastolic heart failure and related to episodes of A. fib with RVR. Component of coronary artery disease not ruled out. Continue Cardizem 240 mg daily, Lopressor 75 mg 3 times daily, azithromycin and ceftriaxone, Symbicort, DuoNeb treatments, Solu-Medrol decreased to 40 mg IV every 8 hours, Lasix 40 mg oral every 12 hours. Cardiology consult and pulmonary consult appreciated. 2. Acute COPD exacerbation. As in #1 3. Acute on chronic diastolic heart failure last echocardiogram shows normal EF 55-60%. Cardiology consult is appreciated. Continue po Lasix 40mg every 12 hours, I&O and daily weights. Monitor electrolytes and renal function. 4. Paroxysmal atrial fibrillation with RVR. Continue Cardizem increased to 300 mg daily, eliquis 2.5 mg twice daily, Lopressor 75 mg 3 times daily. Patient received additional dose of Cardizem CD 120 mg this morning. 5. Mild aortic stenosis, gradient of 21.7 mmHg/12.13 mmHg, mild TR and mild MR , right ventricle systolic pressure of 29 6. Hypertension. Continue losartan 25 mg daily, Lopressor, Cardizem, Imdur. 7. Impaired random blood sugars, hemoglobin C to be obtained 8. DVT prophylaxis. Eliquis. 9. GI prophylaxis. Pepcid. Discharge plan: Return home possibly in the next 24 hours Impression and plan of care have been directed as dictated by the signing physician. Noelle Gilbert nurse practitioner acting as scribe for signing physician.
[2018-06-22 17:33] LABS: Glucose,Whole Blood 186 mg/dL (75-99)
[2018-06-22 20:22] LABS: Glucose,Whole Blood 136 mg/dL (75-99)
[2018-06-22] MEDS: MELATONIN 3 MG TABLET PO SCH (20:55)
[2018-06-22] MEDS ORDERED: methylPREDNISolone SOD SUCCI 40 MG/ML 1 ML VIAL IV SCH (21:00)
[2018-06-23 04:45] VITALS: BP 113/88; RESP 16; TEMP 98.7
[2018-06-23 07:31] LABS: Glucose,Whole Blood 156 mg/dL (75-99)
[2018-06-23 07:56] LABS: HCT 44.6 % (34.0-46.0); HGB 14.7 gm/dL (11.4-16.0); MCH 29.4 pg (25.0-35.0); MCHC 32.9 g/dL (31.0-37.0); MCV 89.2 fL (80.0-100.0); Mean Platelet Volume 6.5; Platelet Count 276 k/uL (150-450); RDW 14.8 % (11.5-15.5); WBC 15.7 k/uL (3.8-10.6)
[2018-06-23] MEDS: INSULIN ASPART 100 UNIT/ML 1 ML 10 ML VIAL SQ SCH ×2 (08:02→14:17)
[2018-06-23] MEDS: METOPROLOL TARTRATE 25 MG TAB PO SCH (08:02)
[2018-06-23] MEDS: APIXABAN 2.5 MG TABLET PO SCH (08:03)
[2018-06-23] MEDS: PANTOPRAZOLE 40 MG TABLET PO SCH (08:03)
[2018-06-23] MEDS: ASPIRIN 81 MG PO SCH (08:03)
[2018-06-23] MEDS: FUROSEMIDE 40 MG TAB PO SCH (08:03)
[2018-06-23] MEDS: AZITHROMYCIN 500 MG TAB PO SCH (08:07)
[2018-06-23 08:10] LABS: Calcium 7.9 mg/dL (8.4-10.2); Potassium 3.5 mmol/L (3.5-5.1)
[2018-06-23] MEDS: SYMBICORT 160-4.5 MCG INHALER INHALATION SCH (08:10)
[2018-06-23] MEDS ORDERED: predniSONE 20 MG TAB PO SCH (09:00)
[2018-06-23] MEDS ORDERED: DILTIAZEM CD 300 MG CAP.ER.24H PO SCH (09:00)
--- NOTE | 2018-06-23 09:38 | P.PN ---
Subjective This is a pleasant 87-year-old female past medical history significant for paroxysmal atrial fibrillation on long-term anticoagulation, history of diastolic heart failure, COPD, hypertension and previous pacemaker implantation. She follows with Dr. Means in the office. She is currently being hospitalized for an acute exacerbation of COPD as well as atrial fibrillation with rapid ventricular response. Echocardiogram obtained on this admission reveals preserved left ventricular systolic function with ejection fraction 60-65%. Her beta tai and diltiazem have both been increased and her heart rates are under much better control this morning. Blood pressure today 113/88 heart rate 68 afebrile maintaining oxygen saturation on nasal cannula. She is seen and examined sitting up at the bedside with family in the room. She denies symptoms of chest pain, shortness of breath, dizziness or palpitations. GENERAL: Well-appearing, well-nourished and in no acute distress. NECK: Supple without JVD or thyromegaly. LUNGS: Breath sounds clear to auscultation bilaterally. Respiration equal and unlabored. Faint expiratory wheeze noted. No rales or rhonchi.. HEART: Irregular rate and rhythm without murmurs, rubs or gallops. S1 and S2 heard. EXTREMITIES: Normal range of motion, no edema. No clubbing or cyanosis. Peripheral pulses intact. ASSESSMENT Acute hypoxic respiratory failure Acute on chronic exacerbation of COPD Paroxysmal atrial fibrillation on long-term anticoagulation with rapid ventricular response History of chronic diastolic heart failure, currently euvolemic History of permanent pacemaker implantation secondary to sick sinus syndrome, last pacemaker check indicates she is in a-fib 7% of the time. Hypertension Former nicotine dependence PLAN Stable from a cardiac perspective. Follow up with Dr. Means upon discharge. Nurse Practitioner note has been reviewed, I agree with a documented findings and plan of care. Patient was seen and examined. Objective - Vital Signs Vital signs: Vital Signs Temp 98.7 F 06/23/18 04:44 Pulse 68 06/23/18 08:00 Resp 16 06/23/18 08:00 BP 113/88 06/23/18 04:44 Pulse Ox 91 L 06/23/18 04:44 Intake & Output 06/22/18 06/23/18 06/23/18 18:59 06:59 18:59 Intake Total 200 Balance 200 Weight 80 kg Intake: Oral 200 Other: Voiding Method Toilet Toilet Toilet # Voids 1 # Bowel Movements 0 0 - Labs CBC & Chem 7: 06/23/18 07:19 06/23/18 07:19 Labs: Abnormal Lab Results - Last 24 Hours (Table) 06/22/18 06/22/18 06/22/18 Range/Units 11:25 17:32 20:18 WBC (3.8-10.6) k/uL Chloride (98-107) mmol/L Carbon Dioxide (22-30) mmol/L BUN (7-17) mg/dL Glucose (74-99) mg/dL POC Glucose (mg/dL) 173 H 186 H 136 H (75-99) mg/dL Calcium (8.4-10.2) mg/dL 06/23/18 06/23/18 06/23/18 Range/Units 07:19 07:19 07:29 WBC 15.7 H (3.8-10.6) k/uL Chloride 94 L (98-107) mmol/L Carbon Dioxide 38 H (22-30) mmol/L BUN 41 H (7-17) mg/dL Glucose 154 H (74-99) mg/dL POC Glucose (mg/dL) 156 H (75-99) mg/dL Calcium 7.9 L (8.4-10.2) mg/dL
[2018-06-23 11:21] VITALS: PULSE 111
[2018-06-23 12:20] LABS: Glucose,Whole Blood 136 mg/dL (75-99)
--- NOTE | 2018-06-23 14:55 | P.PN ---
Subjective Progress Note Date: 06/23/18 Principal diagnosis: Acute hypoxemic respiratory failure secondary to an acute exacerbation of diastolic congestive heart failure along with atrial fibrillation with rapid ventricular response. This is a 87-year-old female patient of Dr. Gutiérrez, who was brought into the emergency department per EMS on 06/18/2018 at 5:00 in the morning for evaluation of difficulty breathing, patient woke up this morning feeling palpitations and increasing shortness of breath. When EMS arrived patient was hypoxemic, in severe respiratory distress, quite dyspneic even with conversation , and tachycardic. Patient states she had been coming down with a cold, she had some chills, and some congestion and production of green colored sputum for the last couple days Past medical history is significant for chronic atrial fibrillation on Eliquis, advanced COPD with a baseline FEV1 of 0.72 L or 39% predicted, chronic diastolic congestive heart failure, hypertension, osteoarthritis, permanent pacemaker for sick sinus syndrome. Chest x-ray showed COPD, borderline cardiomegaly. EKG showed A. fib RVR with a rate of 156 , ST and T-wave abnormality suggesting inferolateral ischemia, and evidence of a septal infarct of undetermined age. Lab work showed WBC of 13.8, hemoglobin 14.7, sodium of 134, potassium is 4.3, chloride is 95, CO2 is 29, BUN is 19 and creatinine is 1.02, troponin was negative 1, proBNP was elevated at 5250. Patient was started on IV Lasix at 40 mg every 12 hours, she was started on Cardizem drip for rate control. IV steroids and nebulized treatments were started. On 06/19/2018 patient seen in follow-up on medical surgical floor. She is doing better today, off BiPAP support, did wear it last night. Currently on nasal cannula, at 2 L per nasal cannula and her pulse ox is 96%, she is afebrile , remains in A. fib and the rate is still tachycardic, but although improved. She remains on Cardizem drip for rate control currently at 10 mg per hour. Her heart rate is 116-117 BPM. His labs have been reviewed, no leukocytosis, WBCs 8.1, hemoglobin is 13.9, electrolytes were within normal limits, B1 is 27 creatinine was 0.94. Flu on Zosyn was not detected. TSH was within normal limits. Any chest pain. Lung sounds reveal some end expiratory wheezes, but overall much improved. She remains on IV Lasix, nebulized bronchodilators, yesterday we added Zithromax and Rocephin. She continues on IV Solu-Medrol. The patient is seen again today 06/20/2018 in follow-up on the regular surgical floor. She is currently resting quite comfortably in bed. She denies any worsening shortness of breath, cough or congestion. Early maintaining good O2 saturations in the mid 90s on 2 L/m per nasal cannula. She's been afebrile. Heart rate still tachycardic in the 120s. Blood pressure stable. He is currently on Cardizem 240 mg by mouth daily along with metoprolol 75 mg twice a day. She remains on IV diuretics at 40 mg every 12 hours. Current weight 79.1 kg. Sputum culture pending. She remains on antibiotics and bronchodilators. White count 15.1. Hemoglobin 13.2. Creatinine 1.01. The patient is seen again today 06/21/2018 in follow-up on the cardiac care unit. She is awake and alert in no acute distress. Maintaining good O2 saturations in the upper 90s on 2 L/m per nasal cannula. She's been afebrile. Remains tachycardic in the 120s currently. Sputum culture reveals no growth. White count 11.7. Hemoglobin 13.5. Creatinine 0.96. She remains on bronchodilators, Symbicort, IV Solu-Medrol. Antibiotics in the form of ceftriaxone and azithromycin. Beta tai increased again today. She is seen again today 06/22/2000 follow-up on the regular medical floor. She is currently resting quite comfortably in bed. She is awake and alert in no acute distress. Maintaining good O2 saturations in the upper 90s on 2 L/m per nasal cannula. She's afebrile. She does remain in atrial fibrillation slightly tachycardic in the 110's. Anticoagulated with Eliquis. She denies any chest pain, palpitations, lightheadedness or dizziness. No worsening shortness of breath, cough or congestion. Sputum culture negative. He remains on ceftriaxone and azithromycin. Patient is seen again today 06/23/2018 in follow-up on the regular medical floor. She is currently sitting up in a chair at the bedside. She is awake and alert in no acute distress. She denies any worsening shortness of breath, cough or congestion. She is maintaining O2 saturations in the 90s during the 6 minute walk. No need for home oxygen. Sputum culture reveals no growth. Her atrial fibrillation is better controlled today. She remains anticoagulated with Eliquis. White count 15.7. Hemoglobin 14.7. Creatinine 0.92. Objective - Vital Signs Vital signs: Vital Signs Temp 98.7 F 06/23/18 04:44 Pulse 111 H 06/23/18 11:20 Resp 16 06/23/18 08:00 BP 113/88 06/23/18 04:44 Pulse Ox 91 L 06/23/18 11:20 Intake & Output 06/22/18 06/23/18 06/23/18 18:59 06:59 18:59 Intake Total 200 Balance 200 Weight 80 kg Intake: Oral 200 Other: Voiding Method Toilet Toilet Toilet # Voids 1 # Bowel Movements 0 0 - Exam GENERAL EXAM: Alert, comfortable in no apparent distress. On room air HEAD: Normocephalic. EYES: Normal reaction of pupils, equal size. NOSE: Clear with pink turbinates. THROAT: No erythema or exudates. NECK: No masses, no JVD. CHEST: No chest wall deformity. LUNGS: Equal air entry with no scattered rhonchi, end expiratory wheeze. CVS: S1 and S2 normal with no audible murmur, regular rhythm. ABDOMEN: No hepatosplenomegaly, normal bowel sounds, no guarding or rigidity. SPINE: No scoliosis or deformity SKIN: No rashes CENTRAL NERVOUS SYSTEM: No focal deficits, tone is normal in all 4 extremities. EXTREMITIES: There is no peripheral edema. No clubbing, no cyanosis. Peripheral pulses are intact. - Labs CBC & Chem 7: 06/23/18 07:19 06/23/18 07:19 Labs: Abnormal Lab Results - Last 24 Hours (Table) 06/22/18 06/22/18 06/23/18 Range/Units 17:32 20:18 07:19 WBC 15.7 H (3.8-10.6) k/uL Chloride (98-107) mmol/L Carbon Dioxide (22-30) mmol/L BUN (7-17) mg/dL Glucose (74-99) mg/dL POC Glucose (mg/dL) 186 H 136 H (75-99) mg/dL Calcium (8.4-10.2) mg/dL 06/23/18 06/23/18 06/23/18 Range/Units 07:19 07:29 12:18 WBC (3.8-10.6) k/uL Chloride 94 L (98-107) mmol/L Carbon Dioxide 38 H (22-30) mmol/L BUN 41 H (7-17) mg/dL Glucose 154 H (74-99) mg/dL POC Glucose (mg/dL) 156 H 136 H (75-99) mg/dL Calcium 7.9 L (8.4-10.2) mg/dL Assessment and Plan Assessment: Assessment: #1. Acute hypoxemic respiratory failure secondary to acute exacerbation of diastolic congestive heart failure #2. A. fib RVR #3. Acute exacerbation of COPD and acute purulent tracheobronchitis #4. Severe COPD, with a FEV1 of 0.72 L or 39% of predicted, Gold stage III #5. Chronic systolic congestive heart failure. Today's echocardiogram showed left ventricle systolic function with EF of 60-65% #6. Chronic A. fib on Eliquis #7. Previous episodes of pneumonia #8. Hypertension #9. Nicotine dependence, in remission, carries [id number] smoking history #10. Permanent pacemaker for sick sinus syndrome Plan: The patient was seen and evaluated by Dr. Rajan. She is cleared for discharge from pulmonary standpoint. She will follow-up with Dr. Plasencia in our office in 1-2 weeks' time. She is encouraged to call sooner with any recurrence of symptoms or other questions or concerns. I, the cosigning physician, performed a history & physical examination of the patient. Lungs sounds clear. Diminished. Maintaining good O2 saturations in the 90s on room air. I discussed the assessment and plan of care with my nurse practitioner, Yessica Doe. I attest to the above note as dictated by her.
--- NOTE | 2018-06-23 19:04 | P.DS ---
Providers Date of admission: 06/18/18 07:49 Attending physician: Maryanne Fitzpatrick Consults: 06/18/18 07:49 Consult Physician Urgent Consulting Provider: [facility] Consult Reason/Comments: RVR, CHF Do you want consulting provider notified?: Yes Consult Physician Urgent Consulting Provider: Shruti Plasencia Consult Reason/Comments: COPD Do you want consulting provider notified?: Yes Primary care physician: [place] Gutiérrez [facility] Course: This is an 87-year-old occasion female patient of Dr. Gutiérrez and Dr. Pina and Dr. 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 This would be her second admission be been 2 weeks her last admission was 06/02/2018. Similar pattern of waking up shorkar, equiing her inhaless rapid ventricular rate, during that admission to home, with isosorbide 15 mg daily and metoprolol 25 mg 3 times a day, and prednisone taper. She did not require any home O2, has been using nebulizer treatments at least 4 times a day, and this was decreased by Dr. Plasencia to to 2 times a day. Patient was otherwise well, until she woke up again with significant shortness of breath early in the morning, was having palpitations difficulty in breathing, she was hypoxemic, on ER evaluation, no additional nebulizer treatments were given by the son, transported via private car. She has conversational dyspnea, wheeze, patient denies any edema, no pulmonary emboli in the past , she is chronically anticoagulated with eliquis2.5 mg she is chronically on prednisone, per home dose it was a 2.5 mg daily, this is not yet confirmed patient denies any recent sick contacts, family mentions that she is independent with ADLs at home, no recent falls, no sick contacts, no foreign travels. Patient denies any fever or chills, no new cough no new purulence The patient came in for evaluation of emergency center with a diagnoses of A. fib RVR with heart rate of 156, CHF exacerbation, COPD exacerbation as well. She required BiPAP treatments emergency room. Chest x-ray showed chronic changes without any acute abnormalities borderline cardiomegaly . Hemoglobin 14.7, CO2 29, creatinine 1.02, troponin negative 1, proBNP 50-50, patient is on IV Cardizem for rate control, IV Lasix 40 every 12 hours, IV steroids, albuterol is currently held secondary to fast heart rate and will be shown once rate control has been achieved consult with Dr. Plasencia, and cardiology . last echocardiogram 10/15/2017 from our facility, unknown whether echocardiogram was performed outpatient cardiology office 06/19: Patient states she is feeling better today. She did get up in the shower. She is eating okay has not had any choking. She states she has less shortness of breath with ambulation. She states she does have to get up slowly due to dizziness. She has remained tachycardic with surveillance system monitor showing atrial fibrillation with RVR and cardiology has increased Lopressor to 75 mg 3 times daily, continue Cardizem which is currently at 240 mg daily. Discharge plan is to return home. Possible discharge by tomorrow. 06/20: Patient states that her shortness of breath is better today. We will plan to decrease Solu-Medrol to 40 every 8 hours. Heart rate remains uncontrolled and patient was given a stat dose of Lopressor 100 mg as morning. She is continued on Lopressor 75 mg twice daily and Cardizem CD 240 mg daily. Currently on Lasix 40 mg twice daily oral. Pulse ox is 96% on 2 L, heart rate is running anywhere between 93 and 124 today. She has been afebrile. White count is 11.7, hemoglobin 13.5, creatinine 0.96. Blood sugars running between 133-217 secondary to steroids. TSH 1.190. 06/22: This morning at the nurses started patient, heart rate was 140, she is currently at 120s. Patient denies having any palpitations, shortness of breath , chest pain. Cardiology has ordered Cardizem CD 120 mg once followed by 300 mg daily starting tomorrow, Lopressor remains at 75 mg 3 times daily. Blood Glucose Running between 128 and 225. IV Solu-Medrol will be decreased to 40 mg every 12 hours and start prednisone in the morning. 06/23 patient is feeling well no dyspnea with exertion, no palpitations hr between 70-110 afib. breathing haS IMPROVED.cleared by [facility] for dischargew. will get ambulatory pulse ox prior to discharge. FINAL DIAGNOSIS 1. Acute hypoxemic respiratory failure, multifactorial in nature Paroxysmal nocturnal Dyspnea secondary to moderately severe COPD, patient mentions possibly underlying chronic asthma also multifactorial to include, acute on chronic diastolic heart failure and related to episodes of A. fib with RVR. Component of coronary artery disease not ruled out. Continue Cardizem 240 mg daily, Lopressor 75 mg 3 times daily, azithromycin and ceftriaxone, Symbicort, DuoNeb treatments, Solu-Medrol decreased to 40 mg IV every 8 hours, Lasix 40 mg oral every 12 hours. gtransitioned to oral Discharge Medication List Aspirin 81 mg PO DAILY 01/18/15 [History] Vit C/E/Zn/Coppr/Lutein/Zeaxan [Preservision Areds 2 Softgel] 1 cap PO BID 01/18 [History] Budesonide/Formoterol Fumarate [Symbicort 160-4.5 Mcg Inhaler] 1 puff INHALATION RT-BID 08/07/17 [History] Apixaban [Eliquis] 2.5 mg PO BID tablet 08/11/17 [Rx] Famotidine [Pepcid] 20 mg PO BID 10/23/17 [History] Potassium Chloride [Klor-Con 10] 10 meq PO DAILY 10/23/17 [History] Cholecalciferol [Vitamin D3] 2,000 unit PO DAILY 11/14/17 [History] Albuterol Nebulized [Ventolin Nebulized] 2.5 mg INHALATION RT-QID PRN 06/01/18 [ History] Calcium Carbonate [Calcium] 600 mg PO DAILY 06/01/18 [History] Isosorbide Mononitrate ER [Imdur] 15 mg PO DAILY #30 dose 06/03/18 [Rx] Azithromycin [Zithromax] 500 mg PO DAILY #5 tab 06/23/18 [Rx] Diltiazem Cd [Cardizem CD] 300 mg PO DAILY #30 cap.er.24h 06/23/18 [Rx] Furosemide [Lasix] 40 mg PO BID@0900,1600 tab 06/23/18 [Rx] Losartan [Cozaar] 25 mg PO HS #0 06/23/18 [Rx] Melatonin 6 mg PO HS tablet 06/23/18 [Rx] Metoprolol Tartrate [Lopressor] 75 mg PO TID tab 06/23/18 [Rx] predniSONE 2.5 mg PO DAILY #0 06/23/18 [Rx] predniSONE 20 mg PO DAILY #24 tab 06/23/18 [Rx] Cardiology consult and pulmonary consult appreciated. 2. Acute COPD exacerbation. As in #1 3. Acute on chronic diastolic heart failure last echocardiogram shows normal EF 55-60%. Cardiology consult is appreciated. Continue po Lasix 40mg every 12 hours, I&O and daily weights. Monitor electrolytes and renal function. 4. Paroxysmal atrial fibrillation with RVR. Continue Cardizem increased to 300 mg daily, eliquis 2.5 mg twice daily, Lopressor 75 mg 3 times daily. Patient received additional dose of Cardizem CD 120 mg this morning. 5. Mild aortic stenosis, gradient of 21.7 mmHg/12.13 mmHg, mild TR and mild MR , right ventricle systolic pressure of 29 6. Hypertension. Continue losartan 25 mg daily, Lopressor, Cardizem, Imdur. 7. Impaired random blood sugars, hemoglobin C to be obtained 8. DVT prophylaxis. Eliquis. 9. GI prophylaxis. Pepcid. Plan - Discharge Summary Discharge Rx Participant: No New Discharge Prescriptions: New Azithromycin [Zithromax] 500 mg PO DAILY #5 tab Diltiazem Cd [Cardizem CD] 300 mg PO DAILY #30 cap.er.24h Furosemide [Lasix] 40 mg PO BID@0900,1600 tab Melatonin 6 mg PO HS tablet Metoprolol Tartrate [Lopressor] 75 mg PO TID tab predniSONE 20 mg PO DAILY #24 tab Continue Aspirin 81 mg PO DAILY Vit C/E/Zn/Coppr/Lutein/Zeaxan [Preservision Areds 2 Softgel] 1 cap PO BID Budesonide/Formoterol Fumarate [Symbicort 160-4.5 Mcg Inhaler] 1 puff INHALATION RT-BID Apixaban [Eliquis] 2.5 mg PO BID tablet Famotidine [Pepcid] 20 mg PO BID Potassium Chloride [Klor-Con 10] 10 meq PO DAILY Cholecalciferol [Vitamin D3] 2,000 unit PO DAILY Albuterol Nebulized [Ventolin Nebulized] 2.5 mg INHALATION RT-QID PRN PRN Reason: Shortness Of Breath Calcium Carbonate [Calcium] 600 mg PO DAILY Isosorbide Mononitrate ER [Imdur] 15 mg PO DAILY #30 dose predniSONE 2.5 mg PO DAILY #0 Changed Losartan [Cozaar] 25 mg PO HS #0 Discontinued Diltiazem Cd [Cardizem CD] 240 mg PO DAILY #30 cap.er.24h Furosemide [Lasix] 20 mg PO MOWEFR@2100 Furosemide [Lasix] 20 mg PO DAILY@0900 Metoprolol Tartrate [Lopressor] 25 mg PO TID #90 tab Potassium Chloride [Klor-Con 10] 10 meq PO MOWEFR Discharge Medication List Aspirin 81 mg PO DAILY 01/18/15 [History] Vit C/E/Zn/Coppr/Lutein/Zeaxan [Preservision Areds 2 Softgel] 1 cap PO BID 01/18 [History] Budesonide/Formoterol Fumarate [Symbicort 160-4.5 Mcg Inhaler] 1 puff INHALATION RT-BID 08/07/17 [History] Apixaban [Eliquis] 2.5 mg PO BID tablet 08/11/17 [Rx] Famotidine [Pepcid] 20 mg PO BID 10/23/17 [History] Potassium Chloride [Klor-Con 10] 10 meq PO DAILY 10/23/17 [History] Cholecalciferol [Vitamin D3] 2,000 unit PO DAILY 11/14/17 [History] Albuterol Nebulized [Ventolin Nebulized] 2.5 mg INHALATION RT-QID PRN 06/01/18 [ History] Calcium Carbonate [Calcium] 600 mg PO DAILY 06/01/18 [History] Isosorbide Mononitrate ER [Imdur] 15 mg PO DAILY #30 dose 06/03/18 [Rx] Azithromycin [Zithromax] 500 mg PO DAILY #5 tab 06/23/18 [Rx] Diltiazem Cd [Cardizem CD] 300 mg PO DAILY #30 cap.er.24h 06/23/18 [Rx] Furosemide [Lasix] 40 mg PO BID@0900,1600 tab 06/23/18 [Rx] Losartan [Cozaar] 25 mg PO HS #0 06/23/18 [Rx] Melatonin 6 mg PO HS tablet 06/23/18 [Rx] Metoprolol Tartrate [Lopressor] 75 mg PO TID tab 06/23/18 [Rx] predniSONE 2.5 mg PO DAILY #0 06/23/18 [Rx] predniSONE 20 mg PO DAILY #24 tab 06/23/18 [Rx] Follow up Appointment(s)/Referral(s): [facility] [Provider Group] - 07/13/18 2:15 pm Shruti Plasencia MD [STAFF PHYSICIAN] - 07/21/18 2:45 pm Phoenix Gutiérrez MD [Primary Care Provider] - 06/26/18 11:45 am (Tuesday with [employer]) Patient Instructions/Handouts: Diltiazem (By mouth), Prednisone (By mouth), Azithromycin (By mouth), Heart Failure (DC), A-fib (Atrial Fibrillation) (DC), COPD (Chronic Obstructive Pulmonary Disease) (DC) Discharge Disposition: HOME SELF-CARE
== END 2018-06-23 15:00 | disposition home or self-care (01) | DRG 291 ==
LOC: EC 05:25 → 3SCARD 07:49 → 3NMEDONC 06-22 00:53
PROVIDERS: ADMIT Family Medicine; ATTEND Family Medicine
DX: I11.0 Hypertensive heart disease with heart failure (principal); J96.01 Acute respiratory failure with hypoxia; J44.1 Chronic obstructive pulmonary disease with (acute) exacerbation; I48.0 Paroxysmal atrial fibrillation; I50.33 Acute on chronic diastolic (congestive) heart failure; E78.5 Hyperlipidemia, unspecified; F17.201 Nicotine dependence, unspecified, in remission; H35.30 Unspecified macular degeneration; I25.10 Atherosclerotic heart disease of native coronary artery without angina pectoris; I27.20 Pulmonary hypertension, unspecified; I08.3 Combined rheumatic disorders of mitral, aortic and tricuspid valves; E11.65 Type 2 diabetes mellitus with hyperglycemia; T38.0X5A Adverse effect of glucocorticoids and synthetic analogues, initial encounter; Z79.01 Long term (current) use of anticoagulants; Z79.51 Long term (current) use of inhaled steroids; Z79.82 Long term (current) use of aspirin; Z79.899 Other long term (current) drug therapy; Z80.0 Family history of malignant neoplasm of digestive organs; Z85.828 Personal history of other malignant neoplasm of skin; Z95.0 Presence of cardiac pacemaker
CPT/HCPCS: 36415; 71045; 80048; 80053; 80061; 82550; 82553; 83036; 83735; 83880; 84443; 84484; 85025; 85027; 85610; 85730; 87070; 87205; 87502; 93005; 93306; 94640; 94660; 96365; 96366; 96375; 96376; 99291

== ENCOUNTER 2018-07-10 10:43 | Inpatient (IN) | payer MEDICARE ==
[2018-07-10] MEDS ORDERED: IPRATROPIUM-ALBUTEROL 3 ML NEB INHALATION STA (10:56)
[2018-07-10] MEDS ORDERED: FUROSEMIDE 10 MG/ML 4 ML VIAL IV STA (10:56)
--- NOTE | 2018-07-10 11:02 | ED ---
SOB HPI - General Stated Complaint: MONICA Time Seen by Provider: 07/10/18 10:43 Source: patient, family, EMS, RN notes reviewed, old records reviewed Mode of arrival: EMS - History of Present Illness Initial Comments: This 87-year-old female history of CHF and COPD and chronic atrial fibrillation who presents with complaints of the onset shortness breath last night which is gotten progressively worse. She denies any overt fevers chills or sweats she was given a DuoNeb and 125 a slight Medrol by paramedics and did feel somewhat improved. No leg edema no overt phlegm production with any type of cough no chest pain. Of note she did just return from [place] by airplane 2 days ago. Patient is on L Aquinas twice a day. No rhinorrhea. No other modifying factors at this time MD Complaint: shortness of breath - Related Data Home Medications Medication Instructions Recorded Confirmed Aspirin 81 mg PO DAILY 01/18/15 07/10/18 Budesonide/Formoterol Fumarate 1 puff INHALATION RT-BID 08/07/17 07/10/18 [Symbicort 160-4.5 Mcg Inhaler] Famotidine [Pepcid] 20 mg PO BID 10/23/17 07/10/18 Potassium Chloride [Klor-Con 10] 10 meq PO DAILY@1600 10/23/17 07/10/18 Albuterol Nebulized [Ventolin 2.5 mg INHALATION RT-QID PRN 06/01/18 07/10/18 Nebulized] Calcium Carbonate [Calcium] 600 mg PO DAILY 06/01/18 07/10/18 Melatonin 3 mg PO HS 07/10/18 07/10/18 Previous Rx's Medication Instructions Recorded Apixaban [Eliquis] 2.5 mg PO BID tablet 08/11/17 Isosorbide Mononitrate ER [Imdur] 15 mg PO DAILY #30 dose 06/03/18 Diltiazem Cd [Cardizem CD] 300 mg PO DAILY #30 cap.er.24h 06/23/18 Furosemide [Lasix] 40 mg PO BID@0900,1600 tab 06/23/18 Losartan [Cozaar] 25 mg PO HS #0 06/23/18 Metoprolol Tartrate [Lopressor] 75 mg PO TID tab 06/23/18 Allergies Allergy/AdvReac Type Severity Reaction Status Date / Time shellfish derived [Shellfish] Allergy Nausea & Verified 07/10/18 11:14 Vomiting & Diarrhea Sulfa (Sulfonamide Allergy Unknown Verified 07/10/18 11:14 Antibiotics) Childhood Review of Systems ROS Statement: Those systems with pertinent positive or pertinent negative responses have been documented in the HPI. ROS Other: All systems not noted in ROS Statement are negative. Past Medical History Past Medical History: Atrial Fibrillation, Cancer, Heart Failure, COPD, Hypertension, Osteoarthritis (OA) Additional Past Medical History / Comment(s): skin cancer on scalp, macular degeneration History of Any Multi-Drug Resistant Organisms: None Reported Past Surgical History: Hernia Repair, Pacemaker, Tonsillectomy Additional Past Surgical History / Comment(s): skin cancer removed from scalp, andrew cataracts Past Anesthesia/Blood Transfusion Reactions: No Reported Reaction Type of Cardiac Device: Permanent Pacemaker Device Placement Date:: 2017 Past Psychological History: No Psychological Hx Reported Smoking Status: Former smoker Past Alcohol Use History: Occasional Past Drug Use History: None Reported - Past Family History Father Additional Family Medical History / Comment(s): heart issues Mother Family Medical History: Cancer Additional Family Medical History / Comment(s): Pancreatic CA. General Exam - General Exam Comments Initial Comments: This is a well-developed well-nourished awake alert oriented 3 female General appearance: alert, anxious, in distress Head exam: Present: atraumatic, normocephalic, normal inspection Eye exam: Present: normal appearance, PERRL, EOMI. Absent: scleral icterus, conjunctival injection, periorbital swelling ENT exam: Present: normal exam, mucous membranes moist Neck exam: Present: normal inspection, full ROM, other (No stridor JVD or bruits ). Absent: tenderness, meningismus, lymphadenopathy Respiratory exam: Present: wheezes, rales (Slight basilar rales), accessory muscle use, decreased breath sounds. Absent: respiratory distress, rhonchi, stridor Cardiovascular Exam: Present: tachycardia, irregular rhythm. Absent: systolic murmur, diastolic murmur, rubs, gallop, clicks GI/Abdominal exam: Present: soft, normal bowel sounds. Absent: distended, tenderness, guarding, rebound, rigid Extremities exam: Present: normal inspection, full ROM, normal capillary refill. Absent: tenderness, pedal edema, joint swelling, calf tenderness Back exam: Present: normal inspection Neurological exam: Present: alert, oriented X3, CN II-XII intact Psychiatric exam: Present: normal affect, normal mood Skin exam: Present: warm, dry, intact, normal color. Absent: rash Course Vital Signs 07/10/18 07/10/18 07/10/18 10:48 11:24 11:38 Temperature 97.5 F L Pulse Rate 110 H 100 100 Respiratory 26 H Rate Blood Pressure 124/85 O2 Sat by Pulse 90 L Oximetry 07/10/18 12:02 Temperature Pulse Rate Respiratory 24 Rate Blood Pressure O2 Sat by Pulse Oximetry - Reevaluation(s) Reevaluation #1: 07/10/18 11:06 EKG shows atrial fibrillation with a rapid ventricular response rate of 117 QRS duration 86 QT since QTC 324/451 low-voltage QRS nonspecific ST-T wave configuration Reevaluation #2: 07/10/18 16:02 Patient is breathing somewhat better after the original treatment. Reevaluation #3: 07/10/18 16:02 I did discuss the findings with the patient's family members were present. Medical Decision Making - Medical Decision Making Patient presents short of breath with evidence of his congestive heart failure. Atrial fibrillation. I did discuss case with patient's family members and the patient as well as with Dr. Gutiérrez the patient will be admitted with cardiology consultation. - Lab Data Result diagrams: 07/10/18 11:40 07/10/18 11:40 Lab Results 07/10/18 07/10/18 07/10/18 Range/Units 11:40 11:40 11:40 WBC 9.5 (3.8-10.6) k/uL RBC 4.14 (3.80-5.40) m/uL Hgb 12.7 (11.4-16.0) gm/dL Hct 37.7 (34.0-46.0) % MCV 91.0 (80.0-100.0) fL MCH 30.8 (25.0-35.0) pg MCHC 33.8 (31.0-37.0) g/dL RDW 16.2 H (11.5-15.5) % Plt Count 128 L D (150-450) k/uL Neutrophils % 86 % Lymphocytes % 8 % Monocytes % 4 % Eosinophils % 1 % Basophils % 0 % Neutrophils # 8.1 H (1.3-7.7) k/uL Lymphocytes # 0.8 L (1.0-4.8) k/uL Monocytes # 0.4 (0-1.0) k/uL Eosinophils # 0.1 (0-0.7) k/uL Basophils # 0.0 (0-0.2) k/uL Anisocytosis Slight PT (9.0-12.0) sec INR (<1.2) APTT (22.0-30.0) sec D-Dimer (<0.60) mg/L FEU Sodium 138 (137-145) mmol/L Potassium 4.0 (3.5-5.1) mmol/L Chloride 99 (98-107) mmol/L Carbon Dioxide 35 H (22-30) mmol/L Anion Gap 4 mmol/L BUN 23 H (7-17) mg/dL Creatinine 1.01 (0.52-1.04) mg/dL Est GFR (CKD-EPI)AfAm 58 (>60 ml/min/1.73 sqM) Est GFR (CKD-EPI)NonAf 51 (>60 ml/min/1.73 sqM) Glucose 152 H (74-99) mg/dL Calcium 8.5 (8.4-10.2) mg/dL Magnesium 2.1 (1.6-2.3) mg/dL Total Bilirubin 1.8 H (0.2-1.3) mg/dL AST 25 (14-36) U/L ALT 58 H (9-52) U/L Alkaline Phosphatase 52 (38-126) U/L Total Creatine Kinase <20 L (30-135) U/L CK-MB (CK-2) 1.0 (0.0-2.4) ng/mL CK-MB (CK-2) Rel Index Troponin I <0.012 (0.000-0.034) ng/mL NT-Pro-B Natriuret Pep pg/mL Total Protein 5.5 L (6.3-8.2) g/dL Albumin 3.3 L (3.5-5.0) g/dL 07/10/18 07/10/18 Range/Units 11:40 11:45 WBC (3.8-10.6) k/uL RBC (3.80-5.40) m/uL Hgb (11.4-16.0) gm/dL Hct (34.0-46.0) % MCV (80.0-100.0) fL MCH (25.0-35.0) pg MCHC (31.0-37.0) g/dL RDW (11.5-15.5) % Plt Count (150-450) k/uL Neutrophils % % Lymphocytes % % Monocytes % % Eosinophils % % Basophils % % Neutrophils # (1.3-7.7) k/uL Lymphocytes # (1.0-4.8) k/uL Monocytes # (0-1.0) k/uL Eosinophils # (0-0.7) k/uL Basophils # (0-0.2) k/uL Anisocytosis PT 11.1 (9.0-12.0) sec INR 1.0 (<1.2) APTT 26.2 (22.0-30.0) sec D-Dimer 0.24 (<0.60) mg/L FEU Sodium (137-145) mmol/L Potassium (3.5-5.1) mmol/L Chloride (98-107) mmol/L Carbon Dioxide (22-30) mmol/L Anion Gap mmol/L BUN (7-17) mg/dL Creatinine (0.52-1.04) mg/dL Est GFR (CKD-EPI)AfAm (>60 ml/min/1.73 sqM) Est GFR (CKD-EPI)NonAf (>60 ml/min/1.73 sqM) Glucose (74-99) mg/dL Calcium (8.4-10.2) mg/dL Magnesium (1.6-2.3) mg/dL Total Bilirubin (0.2-1.3) mg/dL AST (14-36) U/L ALT (9-52) U/L Alkaline Phosphatase (38-126) U/L Total Creatine Kinase (30-135) U/L CK-MB (CK-2) (0.0-2.4) ng/mL CK-MB (CK-2) Rel Index Troponin I (0.000-0.034) ng/mL NT-Pro-B Natriuret Pep 9120 pg/mL Total Protein (6.3-8.2) g/dL Albumin (3.5-5.0) g/dL - EKG Data -: EKG Interpreted by Me (Atrial fibrillation with a rate of 117 QRS duration 86 QT since QTC 324/451) - Radiology Data Radiology results: report reviewed (Imaging was reviewed evidence of congestive heart failure. Please see the complete report), image reviewed Critical Care Time Critical Care Time: Yes Critical Care Time: 35 minutes of critical care time which includes initial presentation with history physical labs x-rays discussed with family members discussion with the patient again reevaluation including reevaluation after medication administration. Discussion with the admitting physician Dr. Dr. Gutiérrez admission orders documentation of the above Disposition Clinical Impression: CHF exacerbation, Acute exacerbation of chronic obstructive airways disease, Atrial fibrillation Disposition: ADMITTED IP TO THIS HOSP Condition: Serious Referrals: Phoenix Gutiérrez MD [Primary Care Provider] - 1-2 days
[2018-07-10 12:14] LABS: Anisocytosis Slight; Basophils % (A) 0 %; Eosinophils # (A) 0.1 k/uL (0-0.7); Eosinophils % (A) 1 %; HCT 37.7 % (34.0-46.0); HGB 12.7 gm/dL (11.4-16.0); Lymphocytes # (A) 0.8 k/uL (1.0-4.8); Lymphocytes % (A) 8 %; MCH 30.8 pg (25.0-35.0); MCHC 33.8 g/dL (31.0-37.0); Mean Platelet Volume 7.1; Monocytes # (A) 0.4 k/uL (0-1.0); Monocytes % (A) 4 %; Neutrophils # (A) 8.1 k/uL (1.3-7.7); Neutrophils % (A) 86 %; RBC 4.14 m/uL (3.80-5.40); RDW 16.2 % (11.5-15.5); WBC 9.5 k/uL (3.8-10.6)
[2018-07-10 12:22] LABS: Albumin 3.3 g/dL (3.5-5.0); Calcium 8.5 mg/dL (8.4-10.2); Magnesium 2.1 mg/dL (1.6-2.3); Total Bilirubin 1.8 mg/dL (0.2-1.3); Total Protein 5.5 g/dL (6.3-8.2)
[2018-07-10 12:29] LABS: D-Dimer 0.24 mg/L FEU (<0.60); Partial Thromboplastin Time 26.2 sec (22.0-30.0); Prothrombin Time 11.1 sec (9.0-12.0)
--- NOTE | 2018-07-10 12:30 | XR ---
EXAMINATION TYPE: XR chest 2V DATE OF EXAM: 07/10/2018 COMPARISON: Prior chest x-ray June 18, 2018. HISTORY: History of COPD with difficulty in breathing. TECHNIQUE: Frontal and lateral views of the chest are obtained. FINDINGS: The cardiac silhouette size is enlarged with dual lead pacemaker and atherosclerotic thorac ic aorta. There is chronic emphysematous change with left basilar opacity posteriorly seen best on l ateral view. Suspect tiny bilateral pleural effusions including fluid into the major fissure. The oss eous structures remain demineralized. IMPRESSION: Correlate for CHF exacerbation as there is cardiomegaly with tiny bilateral pleural effu sions and mild interstitial edema. There is additional patchy posterior left basilar atelectasis and/ or infiltrate.
[2018-07-10 12:36] LABS: Platelet Count 128 k/uL (150-450)
[2018-07-10 12:46] LABS: Creatine Kinase <20 U/L (30-135)
[2018-07-10 12:57] LABS: Troponin I <0.012 ng/mL (0.000-0.034)
--- NOTE | 2018-07-10 16:09 | ED ---
Medical Decision Making - Lab Data Result diagrams: 07/10/18 11:40 07/10/18 11:40 Lab Results 07/10/18 07/10/18 07/10/18 Range/Units 11:40 11:40 11:40 WBC 9.5 (3.8-10.6) k/uL RBC 4.14 (3.80-5.40) m/uL Hgb 12.7 (11.4-16.0) gm/dL Hct 37.7 (34.0-46.0) % MCV 91.0 (80.0-100.0) fL MCH 30.8 (25.0-35.0) pg MCHC 33.8 (31.0-37.0) g/dL RDW 16.2 H (11.5-15.5) % Plt Count 128 L D (150-450) k/uL Neutrophils % 86 % Lymphocytes % 8 % Monocytes % 4 % Eosinophils % 1 % Basophils % 0 % Neutrophils # 8.1 H (1.3-7.7) k/uL Lymphocytes # 0.8 L (1.0-4.8) k/uL Monocytes # 0.4 (0-1.0) k/uL Eosinophils # 0.1 (0-0.7) k/uL Basophils # 0.0 (0-0.2) k/uL Anisocytosis Slight PT (9.0-12.0) sec INR (<1.2) APTT (22.0-30.0) sec D-Dimer (<0.60) mg/L FEU Sodium 138 (137-145) mmol/L Potassium 4.0 (3.5-5.1) mmol/L Chloride 99 (98-107) mmol/L Carbon Dioxide 35 H (22-30) mmol/L Anion Gap 4 mmol/L BUN 23 H (7-17) mg/dL Creatinine 1.01 (0.52-1.04) mg/dL Est GFR (CKD-EPI)AfAm 58 (>60 ml/min/1.73 sqM) Est GFR (CKD-EPI)NonAf 51 (>60 ml/min/1.73 sqM) Glucose 152 H (74-99) mg/dL Calcium 8.5 (8.4-10.2) mg/dL Magnesium 2.1 (1.6-2.3) mg/dL Total Bilirubin 1.8 H (0.2-1.3) mg/dL AST 25 (14-36) U/L ALT 58 H (9-52) U/L Alkaline Phosphatase 52 (38-126) U/L Total Creatine Kinase <20 L (30-135) U/L CK-MB (CK-2) 1.0 (0.0-2.4) ng/mL CK-MB (CK-2) Rel Index Troponin I <0.012 (0.000-0.034) ng/mL NT-Pro-B Natriuret Pep pg/mL Total Protein 5.5 L (6.3-8.2) g/dL Albumin 3.3 L (3.5-5.0) g/dL 07/10/18 07/10/18 Range/Units 11:40 11:45 WBC (3.8-10.6) k/uL RBC (3.80-5.40) m/uL Hgb (11.4-16.0) gm/dL Hct (34.0-46.0) % MCV (80.0-100.0) fL MCH (25.0-35.0) pg MCHC (31.0-37.0) g/dL RDW (11.5-15.5) % Plt Count (150-450) k/uL Neutrophils % % Lymphocytes % % Monocytes % % Eosinophils % % Basophils % % Neutrophils # (1.3-7.7) k/uL Lymphocytes # (1.0-4.8) k/uL Monocytes # (0-1.0) k/uL Eosinophils # (0-0.7) k/uL Basophils # (0-0.2) k/uL Anisocytosis PT 11.1 (9.0-12.0) sec INR 1.0 (<1.2) APTT 26.2 (22.0-30.0) sec D-Dimer 0.24 (<0.60) mg/L FEU Sodium (137-145) mmol/L Potassium (3.5-5.1) mmol/L Chloride (98-107) mmol/L Carbon Dioxide (22-30) mmol/L Anion Gap mmol/L BUN (7-17) mg/dL Creatinine (0.52-1.04) mg/dL Est GFR (CKD-EPI)AfAm (>60 ml/min/1.73 sqM) Est GFR (CKD-EPI)NonAf (>60 ml/min/1.73 sqM) Glucose (74-99) mg/dL Calcium (8.4-10.2) mg/dL Magnesium (1.6-2.3) mg/dL Total Bilirubin (0.2-1.3) mg/dL AST (14-36) U/L ALT (9-52) U/L Alkaline Phosphatase (38-126) U/L Total Creatine Kinase (30-135) U/L CK-MB (CK-2) (0.0-2.4) ng/mL CK-MB (CK-2) Rel Index Troponin I (0.000-0.034) ng/mL NT-Pro-B Natriuret Pep 9120 pg/mL Total Protein (6.3-8.2) g/dL Albumin (3.5-5.0) g/dL Disposition Clinical Impression: CHF exacerbation, Acute exacerbation of chronic obstructive airways disease, Atrial fibrillation, Rapid atrial fibrillation Disposition: ADMITTED IP TO THIS HOSP Condition: Serious Referrals: Phoenix Gutiérrez MD [Primary Care Provider] - 1-2 days
[2018-07-10] MEDS: DILTIAZEM 50 MG in SODIUM CHLORIDE 0.9% 40 ML IV SCH (17:10)
[2018-07-10] MEDS: FAMOTIDINE 20 MG TAB PO SCH (21:36)
[2018-07-10] MEDS: FUROSEMIDE 10 MG/ML 4 ML VIAL IV SCH (21:36)
[2018-07-10] MEDS: METOPROLOL TARTRATE 25 MG TAB PO SCH (21:36)
[2018-07-11] MEDS: APIXABAN 2.5 MG TABLET PO SCH ×3 (01:02→20:40)
[2018-07-11] MEDS: LOSARTAN 25 MG TAB PO SCH ×2 (01:02→20:40)
[2018-07-11] MEDS: MELATONIN 3 MG TABLET PO SCH ×2 (01:02→20:40)
[2018-07-11] MEDS: DILTIAZEM 50 MG in SODIUM CHLORIDE 0.9% 40 ML IV SCH ×3 (01:18→21:49)
[2018-07-11] MEDS ORDERED: DILTIAZEM CD 300 MG CAP.ER.24H PO SCH (09:00)
[2018-07-11] MEDS ORDERED: FUROSEMIDE 40 MG TAB PO SCH (09:00)
[2018-07-11] MEDS: CALCIUM CARBONATE 500 MG CHEWABLE PO SCH (09:09)
[2018-07-11] MEDS: ASPIRIN 81 MG PO SCH (09:09)
[2018-07-11] MEDS: METOPROLOL TARTRATE 25 MG TAB PO SCH ×3 (09:10→20:40)
[2018-07-11] MEDS: FAMOTIDINE 20 MG TAB PO SCH (09:10)
[2018-07-11] MEDS: FUROSEMIDE 10 MG/ML 4 ML VIAL IV SCH ×2 (09:10→20:40)
[2018-07-11] MEDS: ISOSORBIDE MONONITRATE ER 15 MG TAB PO SCH (11:28)
--- NOTE | 2018-07-11 12:05 | CONS ---
CONSULTATION CHIEF COMPLAINT: Shortness of breath. Zehra is an 87-year-old lady with history of COPD, chronic congestive heart failure, paroxysmal atrial fibrillation, who has had multiple and recurrent hospitalizations, primarily related to congestive heart failure and atrial fibrillation. She in fact was in the hospital last month, had recently been in [place] and when she came back, she started complaining of shortness of breath. She had a recent echo that showed an ejection fraction of 60%-65%. Patient's shortness of breath is probably due to an acute exacerbation of chronic diastolic heart failure. She was also in atrial fibrillation with rapid ventricular rate and at the time of my evaluation, her heart rate is well controlled. She has leg edema, but the shortness of breath had improved. Patient is coming in with a combination of problems including atrial fibrillation with rapid ventricular rate and acute exacerbation of chronic diastolic heart failure. Patient is currently on IV Cardizem and IV Lasix which I am going to continue on discharge, will probably have to increase the dose of Lasix, add Zaroxolyn to what she is on. She is on beta blockers and BLAYNE inhibitors along with Eliquis. PAST MEDICAL HISTORY: Significant for chronic diastolic heart failure, paroxysmal atrial fibrillation, hypertension, COPD. MEDICATIONS: At home included Ventolin, Cozaar, , Imdur, Symbicort, Lasix 40 b.i.d., Cardizem CD 300 q. daily, aspirin, Eliquis 2.5 b.i.d., and metoprolol 75 t.i.d. ALLERGIES: To SHELLFISH and SULFA. FAMILY HISTORY: Negative for premature coronary artery disease. SOCIAL HISTORY: Negative for current smoking, EtOH or drug abuse. REVIEW OF SYSTEMS: HEENT is unremarkable. CARDIAC: As described above. RESPIRATORY: As described above. GI: Negative GENITOURINARY: Negative. ALLERGY/IMMUNOLOGY: Negative. SKIN: Negative. MUSCULOSKELETAL: Significant for arthritis. PSYCHOSOCIAL: Negative. ENDOCRINE: Negative. HEMATOLOGICAL: Negative. DERMATOLOGICAL: Negative. CONSTITUTIONAL: Negative. ONCOLOGICAL: Negative. PHYSICAL EXAM: Patient is comfortable at rest. Afebrile. Heart rate of 84, venous blood pressure is 112/70, respiratory rate is 18, O2 sat is 100% on 2 L. There is no jugular venous distention. Chest exam reveals occasional rhonchi bilaterally. Heart exam reveals first and second heart sounds. Systolic murmur at the left lower sternal border. Abdomen is soft. Exam of extremities reveals bilateral 1+ pitting edema. Foot pulses are intact. LABS: Show a hemoglobin of 12.7, platelet count is 128, potassium is 4, creatinine is 1. Three sets of troponins are negative. BNP is 9120. ASSESSMENT: 1. Acute exacerbation of chronic diastolic heart failure. 2. Chronic atrial fibrillation with poorly-controlled ventricular rate. 3. Hypertension. 4. Chronic obstructive pulmonary disease. PLAN: Will treat the patient with IV Lasix. Continue the Cardizem. Once the heart rate is well controlled, we can switch her to oral Cardizem and adjust therapies as needed depending upon her response. MMODL / IJN: [id number] /
--- NOTE | 2018-07-11 14:15 | P.HPIM ---
History of Present Illness H&P Date: 07/10/18 This is an 87-year-old female patient of Dr. Gutiérrez and Dr. 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 Patient had a recent hospitalization June 18 through the which time she was treated for acute hypoxic respiratory failure secondary to COPD, acute on chronic diastolic heart failure with episodes of A. fib with RVR. Patient was discharged home with homecare. Patient presented to [facility] emergency center today due to severe shortness of breath that started last night and progressively worsened during the night. She denies any fever or chills. She denies significant lower extremity edema. She just returned from [place] 2 days prior. She denies any runny no stuffy nose, sore throat, body aches. EKG was a atrial fibrillation at [address]-T wave changes. White count 9.5, hemoglobin 12.7, platelet count 128, BUN 23 and creatinine 1.03, CO2 35, sodium 138, potassium 4.0, chloride 99, blood sugar 152. Total bilirubin 1.8, ALT 58. Troponin negative. ProBNP 9120. Chest x-ray reveals correlate for heart failure exacerbation as there is cardiomegaly with tiny bilateral pleural effusions and mild interstitial edema. Additional patchy posterior left basilar atelectasis and/or infiltrate. Patient was started on DuoNeb treatments , Cardizem drip, IV Lasix at 40 mg every 12 hours and resumed on home medications and admitted to the cardiac stepdown unit. Consults were requested with cardiology and pulmonary medicine. Review of Systems All systems: negative Constitutional: Reports fatigue, Reports weakness, Denies chills, Denies fever, Denies poor appetite, Denies weight loss Eyes: denies blurred vision, denies pain Ears, nose, mouth and throat: Denies headache, Denies nasal congestion, Denies nasal discharge, Denies sinus pain, Denies sinus pressure, Denies sore throat, Denies vertigo Cardiovascular: Reports decreased exercise tolerance, Reports dyspnea on exertion, Reports syncope, Denies chest pain, Denies edema, Denies high blood pressure, Denies leg edema, Denies lightheadedness, Denies palpitations, Denies shortness of breath Respiratory: Reports cough, Reports cough with sputum, Reports dyspnea, Denies excessive sputum, Denies hemoptysis, Denies home oxygen, Denies wheezing Gastrointestinal: Denies abdominal pain, Denies diarrhea, Denies loss of appetite, Denies melena, Denies nausea, Denies vomiting Genitourinary: Denies dysuria, Denies hematuria, Denies urgency, Denies urinary frequency Musculoskeletal: Reports muscle weakness, Denies frequent falls, Denies gait dysfunction, Denies myalgias Integumentary: Reports wounds, Denies pruritus, Denies rash Neurological: Denies aphasia, Denies change in mentation, Denies confusion, Denies gait dysfunction, Denies head injury, Denies headaches, Denies numbness, Denies seizures, Denies weakness Psychiatric: Denies anxiety, Denies depression Endocrine: Denies fatigue, Denies weight change Past Medical History Past Medical History: Atrial Fibrillation, Cancer, Heart Failure, COPD, Hypertension, Osteoarthritis (OA) Additional Past Medical History / Comment(s): skin cancer on scalp, macular degeneration History of Any Multi-Drug Resistant Organisms: None Reported Past Surgical History: Hernia Repair, Pacemaker, Tonsillectomy Additional Past Surgical History / Comment(s): skin cancer removed from scalp, andrew cataracts Past Anesthesia/Blood Transfusion Reactions: No Reported Reaction Type of Cardiac Device: Permanent Pacemaker Device Placement Date:: 2017 Past Psychological History: No Psychological Hx Reported Smoking Status: Former smoker Past Alcohol Use History: Occasional Additional Past Alcohol Use History / Comment(s): Patient states that she was a smoker less than a pack a day for 20-30 years and quit 10 years ago. She denies any illicit drug use or alcohol use. She currently lives at home alone. Past Drug Use History: None Reported - Past Family History Father Additional Family Medical History / Comment(s): Father at age 91 with history of heart disease. Mother Family Medical History: Cancer Additional Family Medical History / Comment(s): Mother at age 87 from pancreatic cancer. Brother(s) Additional Family Medical History / Comment(s): Patient has 1 brother that at age 93 from liver cancer. Sister(s) Additional Family Medical History / Comment(s): Patient has 2 sisters with no major medical problems. Daughter(s) Additional Family Medical History / Comment(s): Patient has a total of 4 children, 3 daughters and 1 son. One daughter at a young age and a motor vehicle accident. Medications and Allergies Home Medications Medication Instructions Recorded Confirmed Type Aspirin 81 mg PO DAILY 01/18/15 07/10/18 History Budesonide/Formoterol Fumarate 1 puff INHALATION RT-BID 08/07/17 07/10/18 History [Symbicort 160-4.5 Mcg Inhaler] Apixaban [Eliquis] 2.5 mg PO BID tablet 08/11/17 07/10/18 Rx Famotidine [Pepcid] 20 mg PO BID 10/23/17 07/10/18 History Potassium Chloride [Klor-Con 10] 10 meq PO DAILY@1600 10/23/17 07/10/18 History Albuterol Nebulized [Ventolin 2.5 mg INHALATION RT-QID PRN 06/01/18 07/10/18 History Nebulized] Calcium Carbonate [Calcium] 600 mg PO DAILY 06/01/18 07/10/18 History Isosorbide Mononitrate ER [Imdur] 15 mg PO DAILY #30 dose 06/03/18 07/10/18 Rx Diltiazem Cd [Cardizem CD] 300 mg PO DAILY #30 cap.er.24h 06/23/18 07/10/18 Rx Furosemide [Lasix] 40 mg PO BID@0900,1600 tab 06/23/18 07/10/18 Rx Losartan [Cozaar] 25 mg PO HS #0 06/23/18 07/10/18 Rx Metoprolol Tartrate [Lopressor] 75 mg PO TID tab 06/23/18 07/10/18 Rx Melatonin 3 mg PO HS 07/10/18 07/10/18 History Allergies Allergy/AdvReac Type Severity Reaction Status Date / Time shellfish derived [Shellfish] Allergy Nausea & Verified 07/10/18 11:14 Vomiting & Diarrhea Sulfa (Sulfonamide Allergy Unknown Verified 07/10/18 11:14 Antibiotics) Childhood Physical Exam Vitals: Vital Signs Temp Pulse Pulse Resp BP BP Pulse Ox 07/11/18 08:00 97.7 F 97 18 105/65 93 L 07/11/18 04:00 93 18 103/76 99 07/11/18 00:10 98.1 F 113 H 20 123/79 95 07/10/18 20:10 97.0 F L 112 H 19 114/88 100 07/10/18 17:30 118 H 20 129/86 97 07/10/18 17:00 120 H 20 129/97 97 07/10/18 16:30 117 H 21 133/96 97 07/10/18 16:00 105 H 22 138/95 96 07/10/18 15:30 118 H 22 125/73 96 07/10/18 15:00 112 H 22 116/78 96 07/10/18 14:30 135 H 22 109/85 96 07/10/18 14:00 118 H 20 118/91 97 07/10/18 13:30 131 H 24 124/85 96 07/10/18 13:00 125 H 20 124/85 96 07/10/18 12:30 118 H 22 124/85 95 07/10/18 12:02 24 07/10/18 12:00 137 H 22 124/85 95 07/10/18 11:38 100 07/10/18 11:30 105 H 20 124/85 07/10/18 11:24 100 07/10/18 11:00 113 H 22 124/85 07/10/18 10:48 97.5 F L 110 H 26 H 124/85 90 L Intake and Output 07/10/18 07/11/18 07/11/18 22:59 06:59 14:59 Intake Total 40.667 Balance 40.667 Intake: Intake, IV Titration 40.667 Amount Diltiazem 50 mg In Sodium 40.667 Chloride 0.9% 40 ml @ 5 MG/HR 5 mls/hr IV .Q10H [facility] Rx#:[id number] Other: Voiding Method Toilet Toilet # Voids 1 1 Weight 79.832 kg 79.6 kg Gen: This is an 87-year-old female. She is on the ER stretcher and appears to be in mild respiratory distress HEENT: Head is atraumatic, normocephalic. Pupils equal, round. Sclerae is anicteric. NECK: Supple. No JVD. No lymphadenopathy. No thyromegaly. LUNGS: Bilateral mild expiratory wheeze. No rhonchi. No intercostal retractions. HEART: Regular rate and rhythm. No murmur. ABDOMEN: Soft. Bowel sounds are present. No masses. No tenderness. EXTREMITIES: No pedal edema. No calf tenderness. NEUROLOGICAL: Patient is awake, alert and oriented x3. Cranial nerves 2 through 12 are grossly intact. Results CBC & Chem 7: 07/10/18 11:40 07/10/18 11:40 Labs: Abnormal Lab Results - Last 24 Hours (Table) 07/10/18 07/10/18 07/10/18 Range/Units 11:40 11:40 11:40 RDW 16.2 H (11.5-15.5) % Plt Count 128 L D (150-450) k/uL Neutrophils # 8.1 H (1.3-7.7) k/uL Lymphocytes # 0.8 L (1.0-4.8) k/uL Carbon Dioxide 35 H (22-30) mmol/L BUN 23 H (7-17) mg/dL Glucose 152 H (74-99) mg/dL Total Bilirubin 1.8 H (0.2-1.3) mg/dL ALT 58 H (9-52) U/L Total Creatine Kinase <20 L (30-135) U/L Total Protein 5.5 L (6.3-8.2) g/dL Albumin 3.3 L (3.5-5.0) g/dL Thrombosis Risk Factor Assmnt - Choose All That Apply Each Risk Factor Represents 3 Points: Age 75 years or older Thrombosis Risk Factor Assessment Total Risk Factor Score: 3 Thrombosis Risk Factor Assessment Level: Moderate Risk Assessment and Plan Plan: 1. Dyspnea secondary to moderately severe COPD, acute on chronic diastolic heart failure and possibly related to episodes of A. fib with RVR. Component of coronary artery disease not ruled out. Patient was started on Cardizem drip. Continue DuoNeb treatments, Symbicort twice daily, Lasix IV 40 mg every 12 hours. Cardiology consult and pulmonary medicine consult. 2. COPD. Continue DuoNeb treatments every 4 hours, Symbicort 1 puff twice daily 3. Acute on chronic diastolic heart failure. Cardiology consult is appreciated. Continue IV Lasix 40 mg every 12 hours, I&O and daily weights. Monitor electrolytes and renal function. 4. Paroxysmal atrial fibrillation. Patient was started on Cardizem drip, continue eliquis 2.5 mg twice daily, Lopressor 75 mg 3 times daily. 5. Hypertension. Continue losartan 25 mg daily, Lopressor, Cardizem, Imdur. 6. DVT prophylaxis. Eliquis. 7. GI prophylaxis. Pepcid. Patient will be admitted to the hospital for a minimum of 2 night stay. Discharge plan: To be determined but most likely return home with homecare Impression and plan of care have been directed as dictated by the signing physician. Noelle Gilbert nurse practitioner acting as scribe for signing physician.
--- NOTE | 2018-07-11 14:19 | P.PN ---
Subjective Progress Note Date: 07/11/18 This is an 87-year-old female patient of Dr. Gutiérrez and Dr. 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 Patient had a recent hospitalization June 18 through the which time she was treated for acute hypoxic respiratory failure secondary to COPD, acute on chronic diastolic heart failure with episodes of A. fib with RVR. Patient was discharged home with homecare. Patient presented to [facility] emergency center today due to severe shortness of breath that started last night and progressively worsened during the night. She denies any fever or chills. She denies significant lower extremity edema. She just returned from [place] 2 days prior. She denies any runny no stuffy nose, sore throat, body aches. EKG was a atrial fibrillation at [address]-T wave changes. White count 9.5, hemoglobin 12.7, platelet count 128, BUN 23 and creatinine 1.03, CO2 35, sodium 138, potassium 4.0, chloride 99, blood sugar 152. Total bilirubin 1.8, ALT 58. Troponin negative. ProBNP 9120. Chest x-ray reveals correlate for heart failure exacerbation as there is cardiomegaly with tiny bilateral pleural effusions and mild interstitial edema. Additional patchy posterior left basilar atelectasis and/or infiltrate. Patient was started on DuoNeb treatments , Cardizem drip, IV Lasix at 40 mg every 12 hours and resumed on home medications and admitted to the cardiac stepdown unit. Consults were requested with cardiology and pulmonary medicine. 07/11: Patient states that she is not diuresing very much. She does state that her breathing is much improved from yesterday. Her weight is down 0.2 kg from yesterday. She has been afebrile, pressure 105/65, pulse ox 93% on 2 L nasal cannula. Patient is not O2 dependent. Review of Systems All systems: negative Constitutional: Reports fatigue, Reports weakness, Denies chills, Denies fever, Denies poor appetite, Denies weight loss Eyes: denies blurred vision, denies pain Ears, nose, mouth and throat: Denies headache, Denies nasal congestion, Denies nasal discharge, Denies sinus pain, Denies sinus pressure, Denies sore throat, Denies vertigo Cardiovascular: Reports decreased exercise tolerance, Reports dyspnea on exertion, Reports syncope, Denies chest pain, Denies edema, Denies high blood pressure, Denies leg edema, Denies lightheadedness, Denies palpitations, Denies shortness of breath-improving Respiratory: Reports cough, Reports cough with sputum, Reports dyspnea, Denies excessive sputum, Denies hemoptysis, Denies home oxygen, Denies wheezing Gastrointestinal: Denies abdominal pain, Denies diarrhea, Denies loss of appetite, Denies melena, Denies nausea, Denies vomiting Genitourinary: Denies dysuria, Denies hematuria, Denies urgency, Denies urinary frequency Musculoskeletal: Reports muscle weakness, Denies frequent falls, Denies gait dysfunction, Denies myalgias Integumentary: Reports wounds, Denies pruritus, Denies rash Neurological: Denies aphasia, Denies change in mentation, Denies confusion, Denies gait dysfunction, Denies head injury, Denies headaches, Denies numbness, Denies seizures, Denies weakness Psychiatric: Denies anxiety, Denies depression Endocrine: Denies fatigue, Denies weight change Objective - Vital Signs Vital signs: Vital Signs Temp 97.7 F 07/11/18 08:00 Pulse 97 07/11/18 08:00 Resp 18 07/11/18 08:00 BP 105/65 07/11/18 08:00 Pulse Ox 93 L 07/11/18 08:00 Intake & Output 07/10/18 07/11/18 07/11/18 18:59 06:59 18:59 Intake Total 40.667 Balance 40.667 Weight 79.832 kg 79.6 kg Intake: Intake, IV Titration 40.667 Amount Diltiazem 50 mg In Sodium 40.667 Chloride 0.9% 40 ml @ 5 MG/HR 5 mls/hr IV .Q10H [facility] Rx#:[id number] Other: Voiding Method Toilet # Voids 1 1 - Exam Gen: This is an 87-year-old female. She is on the ER stretcher and appears to be in mild respiratory distress HEENT: Head is atraumatic, normocephalic. Pupils equal, round. Sclerae is anicteric. NECK: Supple. No JVD. No lymphadenopathy. No thyromegaly. LUNGS: Bilateral mild expiratory wheeze. No rhonchi. No intercostal retractions. HEART: Regular rate and rhythm. No murmur. ABDOMEN: Soft. Bowel sounds are present. No masses. No tenderness. EXTREMITIES: No pedal edema. No calf tenderness. She has multiple healing scabs on her lower extremities which she status from getting in and out of her car. NEUROLOGICAL: Patient is awake, alert and oriented x3. Cranial nerves 2 through 12 are grossly intact. - Labs CBC & Chem 7: 07/10/18 11:40 07/10/18 11:40 Labs: Abnormal Lab Results - Last 24 Hours (Table) 07/10/18 07/10/18 07/10/18 Range/Units 11:40 11:40 11:40 RDW 16.2 H (11.5-15.5) % Plt Count 128 L D (150-450) k/uL Neutrophils # 8.1 H (1.3-7.7) k/uL Lymphocytes # 0.8 L (1.0-4.8) k/uL Carbon Dioxide 35 H (22-30) mmol/L BUN 23 H (7-17) mg/dL Glucose 152 H (74-99) mg/dL Total Bilirubin 1.8 H (0.2-1.3) mg/dL ALT 58 H (9-52) U/L Total Creatine Kinase <20 L (30-135) U/L Total Protein 5.5 L (6.3-8.2) g/dL Albumin 3.3 L (3.5-5.0) g/dL Assessment and Plan Plan: 1. Dyspnea secondary to moderately severe COPD, acute on chronic diastolic heart failure and possibly related to episodes of A. fib with RVR. Component of coronary artery disease not ruled out. Patient was started on Cardizem drip. Continue DuoNeb treatments, Symbicort twice daily, Lasix IV 40 mg every 12 hours. Cardiology consult and pulmonary medicine consult. 2. COPD. Continue DuoNeb treatments every 4 hours, Symbicort 1 puff twice daily 3. Acute on chronic diastolic heart failure. Cardiology consult is appreciated. Continue IV Lasix 40 mg every 12 hours, I&O and daily weights. Monitor electrolytes and renal function. 4. Paroxysmal atrial fibrillation. Patient was started on Cardizem drip, continue eliquis 2.5 mg twice daily, Lopressor 75 mg 3 times daily. 5. Hypertension. Continue losartan 25 mg daily, Lopressor, Cardizem, Imdur. 6. DVT prophylaxis. Eliquis. 7. GI prophylaxis. Pepcid. Discharge plan: home with [facility]NA Impression and plan of care have been directed as dictated by the signing physician. Noelle Gilbert nurse practitioner acting as scribe for signing physician.
[2018-07-11] MEDS: POTASSIUM CHLORIDE ER 10 MEQ TAB.ER.PRT PO SCH (15:12)
[2018-07-11] MEDS: SYMBICORT 160-4.5 MCG INHALER INHALATION SCH ×2 (20:16→20:17)
[2018-07-12 06:55] LABS: Calcium 8.2 mg/dL (8.4-10.2); Potassium 3.6 mmol/L (3.5-5.1)
[2018-07-12] MEDS: METOPROLOL TARTRATE 25 MG TAB PO SCH ×3 (08:11→20:16)
[2018-07-12] MEDS: ISOSORBIDE MONONITRATE ER 15 MG TAB PO SCH (08:11)
[2018-07-12] MEDS: APIXABAN 2.5 MG TABLET PO SCH ×2 (08:11→20:16)
[2018-07-12] MEDS: CALCIUM CARBONATE 500 MG CHEWABLE PO SCH (08:11)
[2018-07-12] MEDS: ASPIRIN 81 MG PO SCH (08:11)
[2018-07-12] MEDS: FUROSEMIDE 10 MG/ML 4 ML VIAL IV SCH ×2 (08:12→20:16)
[2018-07-12] MEDS: FAMOTIDINE 20 MG TAB PO SCH (08:12)
[2018-07-12] MEDS: DILTIAZEM 50 MG in SODIUM CHLORIDE 0.9% 40 ML IV SCH (08:12)
[2018-07-12] MEDS: DILTIAZEM CD 300 MG CAP.ER.24H PO SCH (12:41)
--- NOTE | 2018-07-12 14:31 | XR ---
EXAMINATION TYPE: XR chest 2V DATE OF EXAM: 07/12/2018 COMPARISON: Chest x-ray from 2 days ago and older studies. CTA chest October 24, 2017. HISTORY: CHF per order. TECHNIQUE: Frontal and lateral views of the chest are obtained. FINDINGS: The osseous structures remain demineralized. There is persisting cardiomegaly with dual le ad pacemaker and atherosclerotic thoracic aorta. There is chronic emphysematous change with improving central vascular congestion and posterior left basilar opacity. Cannot exclude persistent tiny bilat eral pleural effusions with slight blunting of posterior costophrenic angles bilaterally is some flui d seen in major fissure on lateral view. No new focal airspace opacity or pneumothorax is evident. IMPRESSION: Chronic emphysematous change and cardiomegaly with suspected persistent tiny bilateral p leural effusions but improving central vascular congestion and mild interstitial edema. Resolved or i mproving posterior left basilar atelectasis and/or infiltrate is noted. No new infiltrate is present.
--- NOTE | 2018-07-12 14:49 | P.PN ---
Subjective Progress Note Date: 07/12/18 This is an 87-year-old female patient of Dr. Gutiérrez and Dr. 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 Patient had a recent hospitalization June 18 through the which time she was treated for acute hypoxic respiratory failure secondary to COPD, acute on chronic diastolic heart failure with episodes of A. fib with RVR. Patient was discharged home with homecare. Patient presented to [facility] emergency center today due to severe shortness of breath that started last night and progressively worsened during the night. She denies any fever or chills. She denies significant lower extremity edema. She just returned from [place] 2 days prior. She denies any runny no stuffy nose, sore throat, body aches. EKG was a atrial fibrillation at [address]-T wave changes. White count 9.5, hemoglobin 12.7, platelet count 128, BUN 23 and creatinine 1.03, CO2 35, sodium 138, potassium 4.0, chloride 99, blood sugar 152. Total bilirubin 1.8, ALT 58. Troponin negative. ProBNP 9120. Chest x-ray reveals correlate for heart failure exacerbation as there is cardiomegaly with tiny bilateral pleural effusions and mild interstitial edema. Additional patchy posterior left basilar atelectasis and/or infiltrate. Patient was started on DuoNeb treatments , Cardizem drip, IV Lasix at 40 mg every 12 hours and resumed on home medications and admitted to the cardiac stepdown unit. Consults were requested with cardiology and pulmonary medicine. 07/11: Patient states that she is not diuresing very much. She does state that her breathing is much improved from yesterday. Her weight is down 0.2 kg from yesterday. She has been afebrile, pressure 105/65, pulse ox 93% on 2 L nasal cannula. Patient is not O2 dependent. 07/12: Patient remains on Cardizem drip. She has been resumed on her home dose of Lopressor which is 75 mg 3 times daily. Discuss with cardiology now K to just continue Cardizem drip and resume her Cardizem CD 300 mg daily. Blood pressures noted in the lower side. Heart rate is running in the 90s and low 100s. She is currently on Lasix 40 mg IV every 12 hours. Patient states her breathing and lower extremity edema is improved. She has met with the dietitian and has been provided information regarding her diet and understands that she needs to avoid salt. Anticipate probable discharge in the next 24 hours. PT consult will be requested. Patient is planning to return home with VNA. Review of Systems All systems: negative Constitutional: Reports fatigue, Reports weakness, Denies chills, Denies fever, Denies poor appetite, Denies weight loss Eyes: denies blurred vision, denies pain Ears, nose, mouth and throat: Denies headache, Denies nasal congestion, Denies nasal discharge, Denies sinus pain, Denies sinus pressure, Denies sore throat, Denies vertigo Cardiovascular: Reports decreased exercise tolerance, Reports dyspnea on exertion, Reports syncope, Denies chest pain, Denies edema, Denies high blood pressure, Denies leg edema, Denies lightheadedness, Denies palpitations, Denies shortness of breath-improving Respiratory: Reports cough, Reports cough with sputum, Reports dyspnea, Denies excessive sputum, Denies hemoptysis, Denies home oxygen, Denies wheezing Gastrointestinal: Denies abdominal pain, Denies diarrhea, Denies loss of appetite, Denies melena, Denies nausea, Denies vomiting Genitourinary: Denies dysuria, Denies hematuria, Denies urgency, Denies urinary frequency Musculoskeletal: Reports muscle weakness, Denies frequent falls, Denies gait dysfunction, Denies myalgias Integumentary: Reports wounds, Denies pruritus, Denies rash Neurological: Denies aphasia, Denies change in mentation, Denies confusion, Denies gait dysfunction, Denies head injury, Denies headaches, Denies numbness, Denies seizures, Denies weakness Psychiatric: Denies anxiety, Denies depression Endocrine: Denies fatigue, Denies weight change Objective - Vital Signs Vital signs: Vital Signs Temp 97.7 F 07/12/18 08:06 Pulse 73 07/12/18 11:20 Resp 18 07/12/18 11:24 BP 95/58 07/12/18 11:20 Pulse Ox 96 07/12/18 11:20 Intake & Output 07/11/18 07/12/18 07/12/18 18:59 06:59 18:59 Intake Total 470 530 290 Output Total 500 Balance 470 530 -210 Weight 79.6 kg 78.5 kg Intake: Intake, IV Titration 50 50 50 Amount Diltiazem 50 mg In Sodium 50 50 50 Chloride 0.9% 40 ml @ 5 MG/HR 5 mls/hr IV .Q10H [facility] Rx#:[id number] Oral 420 480 240 Output: Urine 500 Other: Voiding Method Toilet Toilet # Voids 1 4 - Exam Gen: This is an 87-year-old female. Patient is sitting up on the edge of the bed and appears to be comfortable and in no respiratory distress HEENT: Head is atraumatic, normocephalic. Pupils equal, round. Sclerae is anicteric. NECK: Supple. No JVD. No lymphadenopathy. No thyromegaly. LUNGS: Bilateral mild expiratory wheeze. No rhonchi. No intercostal retractions. HEART: Regular rate and rhythm. No murmur. ABDOMEN: Soft. Bowel sounds are present. No masses. No tenderness. EXTREMITIES: Trace bilateral pedal edema. No calf tenderness. She has multiple healing scabs on her lower extremities which she status from getting in and out of her car. NEUROLOGICAL: Patient is awake, alert and oriented x3. Cranial nerves 2 through 12 are grossly intact. - Labs CBC & Chem 7: 07/10/18 11:40 07/12/18 05:50 Labs: Abnormal Lab Results - Last 24 Hours (Table) 07/12/18 Range/Units 05:50 Carbon Dioxide 35 H (22-30) mmol/L BUN 34 H (7-17) mg/dL Creatinine 1.17 H (0.52-1.04) mg/dL Calcium 8.2 L (8.4-10.2) mg/dL Assessment and Plan Plan: 1. Dyspnea secondary to moderately severe COPD, acute on chronic diastolic heart failure and possibly related to episodes of A. fib with RVR. Component of coronary artery disease not ruled out. Patient was started on Cardizem drip. Cardizem drip discontinued and Cardizem CD 300 mg resumed as well as Lopressor 75 mg 3 times daily. Continue DuoNeb treatments, Symbicort twice daily, Lasix IV 40 mg every 12 hours. Cardiology consult and pulmonary medicine consult. 2. COPD. Continue DuoNeb treatments every 4 hours, Symbicort 1 puff twice daily 3. Acute on chronic diastolic heart failure. Cardiology consult is appreciated. Continue IV Lasix 40 mg every 12 hours, I&O and daily weights. Monitor electrolytes and renal function. 4. Paroxysmal atrial fibrillation. Discontinue Cardizem drip and resume Cardizem CD 300 mg daily, continue eliquis 2.5 mg twice daily, Lopressor 75 mg 3 times daily. 5. Hypertension. Continue losartan 25 mg daily, Lopressor, Cardizem, Imdur. 6. DVT prophylaxis. Eliquis. 7. GI prophylaxis. Pepcid. Discharge plan: home with VNA most likely in the next 24-48 hours. Impression and plan of care have been directed as dictated by the signing physician. Noelle Gilbert nurse practitioner acting as scribe for signing physician.
[2018-07-12] MEDS: POTASSIUM CHLORIDE ER 10 MEQ TAB.ER.PRT PO SCH (15:08)
--- NOTE | 2018-07-12 16:58 | CONS ---
CONSULTATION PULMONARY CONSULTATION: DATE OF SERVICE: 07/12/2018 HISTORY OF PRESENT ILLNESS: This is an 87-year-old female with a history of a heart failure. The patient also has a history of chronic atrial fibrillation. She also suffers COPD. Anyway, she presents to the emergency room with complaints of increasing shortness of breath. In addition, she does have issues of increasing weight gain, some orthopnea and also dyspnea on exertion. In addition, she does admit to some swelling of her lower extremities and legs. She did just return from [place] a couple days prior to admission to the emergency room, which is on July 10. She denies any cough. No phlegm production. No chest pain or chest discomfort. No fever, chills. No nasal complaints. No nausea, vomiting or diarrhea. She is evaluated in the emergency room, admitted with diagnosis of acute exacerbation of chronic diastolic heart failure. Also, she is thought to have possible atrial fibrillation with RVR as a contributing factor for her heart failure. She is feeling better. She was feeling much better yesterday. Today she feels a bit less well. She states getting up and going to the bathroom makes her short of breath. Again, she denies any fever, chills, cough, phlegm production, wheezing, or anything like that. HOME MEDICATIONS: Include aspirin, Symbicort, Pepcid, Klor-Con, albuterol updrafts, calcium, and melatonin. In addition, she is on Eliquis, Imdur, Cardizem CD, Lasix, Cozaar, metoprolol. ALLERGIES: ARE SHELLFISH AND SULFA ANTIBIOTICS. MEDICAL HISTORY: Congestive heart failure which is diastolic in nature and chronic, atrial fibrillation, COPD, hypertension, DJD, skin cancer, macular degeneration. SURGICAL HISTORY: Includes hernia repair, pacemaker insertion, tonsillectomy and skin cancer removal from the scalp. She has also had bilateral cataract surgery and permanent pacemaker implantation. SOCIAL HISTORY: Positive for previous tobacco history. Occasional alcohol use. No illicit drug use. FAMILY HISTORY: Positive for pancreatic cancer and heart disease. REVIEW OF SYSTEMS: CONSTITUTIONAL: Weakness and fatigue. NEUROLOGIC: Negative. HEENT negative. CARDIOVASCULAR: Negative. PULMONARY: Shortness of breath. GI/ negative. RHEUMATOLOGIC: Negative. ENDOCRINOLOGIC: Negative. DERMATOLOGIC: Negative. PHYSICAL EXAMINATION: Current vital signs are reviewed they include a temperature 97.7, heart rate which is 115 beats per minute and irregular, respiratory rate 18, blood pressure 107/57, mean 73 and 2 L saturation between 96-100%. Appears in no acute distress. HEENT examination is grossly unremarkable. Nasal O2 in place. No oral lesions. Nasal mucosa is normal. NECK: Supple. Full range of motion. No adenopathy or thyromegaly. Neck veins are flat. Cardiovascular examination reveals tachycardia. Heart rate about 110- 115 beats per minute. It is irregular. S1, S2 normal. There is no murmur. No S3. LUNGS: Some bibasilar crackles. Breath sounds equal bilaterally. No wheezes. No rhonchi. ABDOMEN: Soft. Bowel sounds are heard. Extremities reveal some edema. It is 1+. It is pitting. Skin without rash. There are multiple areas of ecchymoses. Neurologic examination is brief but nonfocal. LAB DATA: Reviewed. White count is 9.5, hemoglobin 12.7, hematocrit 37.7, platelet count 128,000. PT/INR, PTT and D-dimers are all normal. Sodium potassium 138 and 3.6 respectively. Chloride 100, CO2 35, anion gap 3. BUN and creatinine were 34 and 1.17. Her N terminal proBNP 9120. Her troponins were less than 0.012 x 2. Chest x-ray shows evidence of heart failure. There is bilateral pleural effusions and interstitial edema with some cephalization. EKG is consistent with atrial fibrillation with rapid ventricular response and response rate of about 117 beats per minute. ASSESSMENT: 1. Acute exacerbation of chronic diastolic heart failure, likely triggered by atrial fibrillation with RVR. 2. History of chronic atrial fibrillation. 3. Skin cancer. 4. History of chronic obstructive pulmonary disease. 5. History of hypertension. 6. Degenerative joint disease. 7. Macular degeneration. 8. Status post pacemaker insertion. PLAN: The patient is doing reasonably well. We will continue to follow. A repeat chest x- ray is ordered. Additional recommendations and suggestions are forthcoming. Labs and x-rays are reviewed. She currently is on Symbicort. Her lung disease is stable. We will continue to follow. Appreciate cardiac input. MMODL / IJN: [id number] / MTDD
[2018-07-12] MEDS: LOSARTAN 25 MG TAB PO SCH (20:15)
[2018-07-12] MEDS: MELATONIN 3 MG TABLET PO SCH (20:16)
[2018-07-12] MEDS: SYMBICORT 160-4.5 MCG INHALER INHALATION SCH (20:21)
[2018-07-13 06:31] LABS: Calcium 8.2 mg/dL (8.4-10.2)
[2018-07-13 07:05] LABS: Potassium 4.4 mmol/L (3.5-5.1)
[2018-07-13] MEDS: SYMBICORT 160-4.5 MCG INHALER INHALATION SCH ×2 (07:55→21:38)
[2018-07-13] MEDS: CALCIUM CARBONATE 500 MG CHEWABLE PO SCH (08:39)
[2018-07-13] MEDS: METOPROLOL TARTRATE 25 MG TAB PO SCH ×3 (08:39→20:46)
[2018-07-13] MEDS: ISOSORBIDE MONONITRATE ER 15 MG TAB PO SCH (08:39)
[2018-07-13] MEDS: DILTIAZEM CD 300 MG CAP.ER.24H PO SCH (08:39)
[2018-07-13] MEDS: APIXABAN 2.5 MG TABLET PO SCH ×2 (08:39→20:46)
[2018-07-13] MEDS: FAMOTIDINE 20 MG TAB PO SCH (08:39)
[2018-07-13] MEDS: ASPIRIN 81 MG PO SCH (08:39)
[2018-07-13] MEDS: FUROSEMIDE 10 MG/ML 4 ML VIAL IV SCH ×2 (08:40→20:46)
--- NOTE | 2018-07-13 09:13 | P.PN ---
Subjective Progress Note Date: 07/12/18 This is an 87-year-old female patient of Dr. Gutiérrez and Dr. 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 Patient had a recent hospitalization June 18 through the which time she was treated for acute hypoxic respiratory failure secondary to COPD, acute on chronic diastolic heart failure with episodes of A. fib with RVR. Patient was discharged home with homecare. Patient presented to [facility] emergency center with symptoms of moderate to severe shortness of breath, positive PND and orthopnea. Positive peripheral edema. EKG on admission here showed atrial fibrillation with a rapid ventricular response. She did have an echocardiogram with Doppler study performed in June which revealed an ejection fraction of 60-65% Patient is responding to IV Lasix, she states that she doesn't go to the bathroom often but when she goes she is putting out significant amounts of urine. Overall she does state that her breathing feels much better today, she still continues to have at least one plus bilateral peripheral edema. Blood pressure 95/60 with a heart rate of 90 this morning, 94% on 2 L of oxygen. Sodium 138, potassium 3.6, BUN 34, creatinine 1.1. Her BNP level on admission was 9120. The patient continues to be on IV Lasix 40 mg twice a day. Objective - Vital Signs Vital signs: Vital Signs Temp 98.2 F 07/13/18 04:10 Pulse 97 07/13/18 04:10 Resp 20 07/13/18 04:10 BP 130/70 07/13/18 04:10 Pulse Ox 94 L 07/13/18 04:10 Intake & Output 07/12/18 07/13/18 07/13/18 18:59 06:59 18:59 Intake Total 770 480 118 Output Total 500 Balance 270 480 118 Weight 81.2 kg Intake: Intake, IV Titration 50 Amount Diltiazem 50 mg In Sodium 50 Chloride 0.9% 40 ml @ 5 MG/HR 5 mls/hr IV .Q10H [facility] Rx#:[id number] Oral 720 480 118 Output: Urine 500 Other: Voiding Method Toilet Toilet # Voids 3 3 - Exam PHYSICAL EXAMINATION: GENERAL: This is an 87-year-old female in no acute distress at the time of my examination HEENT: Head is atraumatic, normocephalic. Pupils equal, round. Sclera anicteric. Conjunctiva are clear. Mucous membranes of the mouth are moist. Neck is supple. There is no elevated jugular venous pressure. No carotid bruit is heard. HEART EXAMINATION: Heart S1 and S2 irregularly irregular soft systolic murmur is heard CHEST EXAMINATION:lungs reveal diminished air entry to bilateral bases with fine expiratory wheezing. ABDOMEN: Soft, nontender. Bowel sounds are heard. No organomegaly noted. EXTREMITIES: 2+ peripheral pulses with 1+ evidence of peripheral edema and no calf tenderness noted. She does have ulcerated areas noted on bilateral legs NEUROLOGIC patient is awake, alert and oriented 3 . . - Labs CBC & Chem 7: 07/10/18 11:40 07/13/18 05:40 Labs: Abnormal Lab Results - Last 24 Hours (Table) 07/13/18 Range/Units 05:40 Sodium 135 L (137-145) mmol/L Carbon Dioxide 32 H (22-30) mmol/L BUN 31 H (7-17) mg/dL Calcium 8.2 L (8.4-10.2) mg/dL Assessment and Plan Plan: Assessment and plan #1 diastolic congestive heart failure acute on chronic, possibly exacerbated by A. fib with RVR. Diuresing on IV Lasix. Patient did have an echocardiogram performed in June which revealed a normal left ventricular systolic function. #2 COPD #3 paroxysmal atrial fibrillation #4 hypertension Plan From cardiology's perspective, we'll recommend to continue the patient on her current dose of IV Lasix. Continue to monitor intake and output along with daily weights and daily lytes BUN and creatinine. Repeat chest x-ray was performed which revealed chronic emphysema changes and cardiomegaly with persistent tiny bilateral pleural effusions but improving central vascular congestion and interstitial edema. IV Cardizem will be discontinued and patient will be resumed on her oral Cardizem dose as at home. DNP note has been reviewed, I agree with a documented findings and plan of care. Patient was seen and examined.
--- NOTE | 2018-07-13 09:15 | P.PN ---
Subjective Progress Note Date: 07/13/18 This is an 87-year-old female patient of Dr. Gutiérrez and Dr. 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 Patient had a recent hospitalization June 18 through the which time she was treated for acute hypoxic respiratory failure secondary to COPD, acute on chronic diastolic heart failure with episodes of A. fib with RVR. Patient was discharged home with homecare. Patient presented to [facility] emergency center with symptoms of moderate to severe shortness of breath, positive PND and orthopnea. Positive peripheral edema. EKG on admission here showed atrial fibrillation with a rapid ventricular response. She did have an echocardiogram with Doppler study performed in June which revealed an ejection fraction of 60-65% Patient is responding to IV Lasix, she states that she doesn't go to the bathroom often but when she goes she is putting out significant amounts of urine. Overall she does state that her breathing feels much better today, she still continues to have at least one plus bilateral peripheral edema. Blood pressure 95/60 with a heart rate of 90 this morning, 94% on 2 L of oxygen. Sodium 138, potassium 3.6, BUN 34, creatinine 1.1. Her BNP level on admission was 9120. The patient continues to be on IV Lasix 40 mg twice a day. 07/13/2018 Patient seen and examined this morning, continues to feel better. She does state that she continues to put out good amounts of urine each time she goes. Sodium 135, potassium 4.4, BUN 31, creatinine 0.9. Blood pressure this morning 130/70, heart rate 80s to 90s, 94% on 2 L of oxygen. Objective - Vital Signs Vital signs: Vital Signs Temp 98.2 F 07/13/18 04:10 Pulse 97 07/13/18 04:10 Resp 20 07/13/18 04:10 BP 130/70 07/13/18 04:10 Pulse Ox 94 L 07/13/18 04:10 Intake & Output 07/12/18 07/13/18 07/13/18 18:59 06:59 18:59 Intake Total 770 480 118 Output Total 500 Balance 270 480 118 Weight 81.2 kg Intake: Intake, IV Titration 50 Amount Diltiazem 50 mg In Sodium 50 Chloride 0.9% 40 ml @ 5 MG/HR 5 mls/hr IV .Q10H [facility] Rx#:[id number] Oral 720 480 118 Output: Urine 500 Other: Voiding Method Toilet Toilet # Voids 3 3 - Exam PHYSICAL EXAMINATION: GENERAL: This is an 87-year-old female in no acute distress at the time of my examination HEENT: Head is atraumatic, normocephalic. Pupils equal, round. Sclera anicteric. Conjunctiva are clear. Mucous membranes of the mouth are moist. Neck is supple. There is no elevated jugular venous pressure. No carotid bruit is heard. HEART EXAMINATION: Heart S1 and S2 irregularly irregular soft systolic murmur is heard CHEST EXAMINATION:lungs reveal diminished air entry to bilateral bases with fine expiratory wheezing. ABDOMEN: Soft, nontender. Bowel sounds are heard. No organomegaly noted. EXTREMITIES: 2+ peripheral pulses with 1+ evidence of peripheral edema and no calf tenderness noted. She does have ulcerated areas noted on bilateral legs NEUROLOGIC patient is awake, alert and oriented 3 . . - Labs CBC & Chem 7: 07/10/18 11:40 07/13/18 05:40 Labs: Abnormal Lab Results - Last 24 Hours (Table) 07/13/18 Range/Units 05:40 Sodium 135 L (137-145) mmol/L Carbon Dioxide 32 H (22-30) mmol/L BUN 31 H (7-17) mg/dL Calcium 8.2 L (8.4-10.2) mg/dL Assessment and Plan Plan: Assessment and plan #1 diastolic congestive heart failure acute on chronic, possibly exacerbated by A. fib with RVR. Diuresing on IV Lasix. Patient did have an echocardiogram performed in June which revealed a normal left ventricular systolic function. #2 COPD #3 paroxysmal atrial fibrillation #4 hypertension Plan Cardiology's perspective, we'll recommend to continue diuresing the patient with IV Lasix, she continues to have bilateral lower extremity edema, possibly changed over to oral diuretics tomorrow. Heart rate remains under adequate control. DNP note has been reviewed, I agree with a documented findings and plan of care. Patient was seen and examined.
--- NOTE | 2018-07-13 12:27 | P.PN ---
Subjective Progress Note Date: 07/13/18 This is an 87-year-old female patient of Dr. Gutiérrez and Dr. 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 Patient had a recent hospitalization June 18 through the which time she was treated for acute hypoxic respiratory failure secondary to COPD, acute on chronic diastolic heart failure with episodes of A. fib with RVR. Patient was discharged home with homecare. Patient presented to [facility] emergency center today due to severe shortness of breath that started last night and progressively worsened during the night. She denies any fever or chills. She denies significant lower extremity edema. She just returned from [place] 2 days prior. She denies any runny no stuffy nose, sore throat, body aches. EKG was a atrial fibrillation at [address]-T wave changes. White count 9.5, hemoglobin 12.7, platelet count 128, BUN 23 and creatinine 1.03, CO2 35, sodium 138, potassium 4.0, chloride 99, blood sugar 152. Total bilirubin 1.8, ALT 58. Troponin negative. ProBNP 9120. Chest x-ray reveals correlate for heart failure exacerbation as there is cardiomegaly with tiny bilateral pleural effusions and mild interstitial edema. Additional patchy posterior left basilar atelectasis and/or infiltrate. Patient was started on DuoNeb treatments , Cardizem drip, IV Lasix at 40 mg every 12 hours and resumed on home medications and admitted to the cardiac stepdown unit. Consults were requested with cardiology and pulmonary medicine. 07/11: Patient states that she is not diuresing very much. She does state that her breathing is much improved from yesterday. Her weight is down 0.2 kg from yesterday. She has been afebrile, pressure 105/65, pulse ox 93% on 2 L nasal cannula. Patient is not O2 dependent. 07/12: Patient remains on Cardizem drip. She has been resumed on her home dose of Lopressor which is 75 mg 3 times daily. Discuss with cardiology now K to just continue Cardizem drip and resume her Cardizem CD 300 mg daily. Blood pressures noted in the lower side. Heart rate is running in the 90s and low 100s. She is currently on Lasix 40 mg IV every 12 hours. Patient states her breathing and lower extremity edema is improved. She has met with the dietitian and has been provided information regarding her diet and understands that she needs to avoid salt. Anticipate probable discharge in the next 24 hours. PT consult will be requested. Patient is planning to return home with VNA. 07/13: Patient states her breathing is awful today. She has increased shortness of breath with ambulating just to the bathroom. In general she states her breathing is improved since she arrived. Heart rate is at 117. She is on oral Cardizem and metoprolol. Sodium 135, potassium 4.4, BUN 31 creatinine 0.9. Cardiology is recommending to continue IV Lasix today and plan for oral tomorrow. Documented weight is up from yesterday. Question whether this is accurate. Patient has a documented pulse ox of 88% with ambulation without oxygen today. We will plan to reevaluate tomorrow for home oxygen need. Case management is following. Review of Systems All systems: negative Constitutional: Reports fatigue, Reports weakness, Denies chills, Denies fever, Denies poor appetite, Denies weight loss Eyes: denies blurred vision, denies pain Ears, nose, mouth and throat: Denies headache, Denies nasal congestion, Denies nasal discharge, Denies sinus pain, Denies sinus pressure, Denies sore throat, Denies vertigo Cardiovascular: Reports decreased exercise tolerance, Reports dyspnea on exertion, denies syncope, Denies chest pain, Denies edema, Denies high blood pressure, Denies leg edema, Denies lightheadedness, Denies palpitations, reports shortness of breath-improving Respiratory: Reports cough, Reports cough with sputum, Reports dyspnea, Denies excessive sputum, Denies hemoptysis, Denies home oxygen, Denies wheezing Gastrointestinal: Denies abdominal pain, Denies diarrhea, Denies loss of appetite, Denies melena, Denies nausea, Denies vomiting Genitourinary: Denies dysuria, Denies hematuria, Denies urgency, Denies urinary frequency Musculoskeletal: Reports muscle weakness, Denies frequent falls, Denies gait dysfunction, Denies myalgias Integumentary: Reports wounds, Denies pruritus, Denies rash Neurological: Denies aphasia, Denies change in mentation, Denies confusion, Denies gait dysfunction, Denies head injury, Denies headaches, Denies numbness, Denies seizures, Denies weakness Psychiatric: Denies anxiety, Denies depression Endocrine: Denies fatigue, Denies weight change Objective - Vital Signs Vital signs: Vital Signs Temp 98.5 F 07/13/18 08:00 Pulse 117 H 07/13/18 08:00 Resp 18 07/13/18 08:00 BP 146/66 07/13/18 08:00 Pulse Ox 96 07/13/18 08:00 Intake & Output 07/12/18 07/13/18 07/13/18 18:59 06:59 18:59 Intake Total 770 480 118 Output Total 500 Balance 270 480 118 Weight 81.2 kg Intake: Intake, IV Titration 50 Amount Diltiazem 50 mg In Sodium 50 Chloride 0.9% 40 ml @ 5 MG/HR 5 mls/hr IV .Q10H RODRICK Rx#:[id number] Oral 720 480 118 Output: Urine 500 Other: Voiding Method Toilet Toilet Toilet # Voids 3 3 - Exam Gen: This is an 87-year-old female. Patient is sitting in recliner and appears to be comfortable and in no respiratory distress HEENT: Head is atraumatic, normocephalic. Pupils equal, round. Sclerae is anicteric. NECK: Supple. No JVD. No lymphadenopathy. No thyromegaly. LUNGS: Bilateral mild expiratory wheeze. No rhonchi. No intercostal retractions. HEART: Regular rate and rhythm. No murmur. ABDOMEN: Soft. Bowel sounds are present. No masses. No tenderness. EXTREMITIES: Trace bilateral pedal edema. No calf tenderness. Weeping noted from wounds on the lower extremities bilaterally.. NEUROLOGICAL: Patient is awake, alert and oriented x3. Cranial nerves 2 through 12 are grossly intact. - Labs CBC & Chem 7: 07/10/18 11:40 07/13/18 05:40 Labs: Abnormal Lab Results - Last 24 Hours (Table) 07/13/18 Range/Units 05:40 Sodium 135 L (137-145) mmol/L Carbon Dioxide 32 H (22-30) mmol/L BUN 31 H (7-17) mg/dL Calcium 8.2 L (8.4-10.2) mg/dL Assessment and Plan Plan: 1. Dyspnea secondary to moderately severe COPD, acute on chronic diastolic heart failure and possibly related to episodes of A. fib with RVR. Component of coronary artery disease not ruled out. Patient was started on Cardizem drip. Cardizem drip discontinued and Cardizem CD 300 mg resumed as well as Lopressor 75 mg 3 times daily. Continue DuoNeb treatments, Symbicort twice daily, Lasix IV 40 mg every 12 hours. Cardiology consult and pulmonary medicine consult. 2. COPD. Continue DuoNeb treatments every 4 hours, Symbicort 1 puff twice daily 3. Acute on chronic diastolic heart failure. Cardiology consult is appreciated. Continue IV Lasix 40 mg every 12 hours, I&O and daily weights. Monitor electrolytes and renal function. 4. Paroxysmal atrial fibrillation. Discontinue Cardizem drip and resume Cardizem CD 300 mg daily, continue eliquis 2.5 mg twice daily, Lopressor 75 mg 3 times daily. 5. Hypertension. Continue losartan 25 mg daily, Lopressor, Cardizem, Imdur. 6. DVT prophylaxis. Eliquis. 7. GI prophylaxis. Pepcid. 8. Abrasions and edema to the lower extremities with weeping of serous material. Therahoney daily. Discharge plan: home with VNA most likely in the next 24-48 hours. Impression and plan of care have been directed as dictated by the signing physician. Noelle Gilbert nurse practitioner acting as scribe for signing physician.
[2018-07-13] MEDS: POTASSIUM CHLORIDE ER 10 MEQ TAB.ER.PRT PO SCH (15:40)
--- NOTE | 2018-07-13 15:43 | P.PN ---
Subjective Progress Note Date: 07/13/18 Principal diagnosis: Acute exacerbation of chronic diastolic heart failure related to A. fib RVR This is a 87-year-old white female patient past medical history of chronic congestive heart failure, chronic atrial fibrillation, COPD who came into the hospital on 07/10/2018 with complaints of increasing shortness of breath, weight gain, orthopnea, and exertional dyspnea. She states her lower extremities have been increasingly more swollen. She denied any cough, denied any phlegm production, no chest pain, no fever or chills, nausea, vomiting or diarrhea. Chest x-ray on admission showed renomegaly, make emphysematous changes, with left basilar opacity posteriorly, tiny bilateral pleural effusions and fluid in the major fissure, mild interstitial edema. ProBNP was 9120, troponins were negative 3. KG showed persistent atrial fibrillation, with rapid ventricular response, with a rate of 117 BPM. Last echocardiogram from June showed an ejection fraction of 60-65%. Patient has been seen by cardiology, she is being diuresed. Responding well to Lasix. Reading easier today. Currently on 2 L per nasal cannula pulse ox is 96%, hemodynamically stable, afebrile, lung sounds are diminished air entry bilaterally, with fine expiratory wheezing. Patient is on IV Lasix, Symbicort. She is on Eliquis for anticoagulation. She remains in A. fib, but her rate is better controlled, she does have a permanent pacemaker in place for history of heart block. Objective - Vital Signs Vital signs: Vital Signs Temp 99.6 F 07/13/18 11:27 Pulse 97 07/13/18 11:53 Resp 18 07/13/18 11:53 BP 111/56 07/13/18 11:27 Pulse Ox 96 07/13/18 11:27 Intake & Output 07/12/18 07/13/18 07/13/18 18:59 06:59 18:59 Intake Total 770 480 318 Output Total 500 Balance 270 480 318 Weight 81.2 kg Intake: Intake, IV Titration 50 Amount Diltiazem 50 mg In Sodium 50 Chloride 0.9% 40 ml @ 5 MG/HR 5 mls/hr IV .Q10H RODRICK Rx#:[id number] Oral 720 480 318 Output: Urine 500 Other: Voiding Method Toilet Toilet Toilet # Voids 3 3 2 - Exam GENERAL EXAM: Alert, pleasant, 87-year-old white female comfortable in no apparent distress. HEAD: Normocephalic/atraumatic. EYES: Normal reaction of pupils, equal size. Conjunctiva pink, sclera white. NOSE: Clear with pink turbinates. THROAT: No erythema or exudates. NECK: No masses, no JVD, no thyroid enlargement, no adenopathy. CHEST: No chest wall deformity. Symmetrical expansion. LUNGS: Equal air entry with diminished breath sounds, with a few end expiratory wheezes CVS: Regular rate and rhythm, normal S1 and S2, no gallops, no murmurs, no rubs ABDOMEN: Soft, nontender. No hepatosplenomegaly, normal bowel sounds, no guarding or rigidity. EXTREMITIES: No clubbing, no edema, no cyanosis, 2+ pulses and upper and lower extremities. MUSCULOSKELETAL: Muscle strength and tone normal. SPINE: No scoliosis or deformity SKIN: No rashes CENTRAL NERVOUS SYSTEM: Alert and oriented -3. No focal deficits, tone is normal in all 4 extremities. PSYCHIATRIC: Alert and oriented -3. Appropriate affect. Intact judgment and insight. - Labs CBC & Chem 7: 07/10/18 11:40 07/13/18 05:40 Labs: Abnormal Lab Results - Last 24 Hours (Table) 07/13/18 Range/Units 05:40 Sodium 135 L (137-145) mmol/L Carbon Dioxide 32 H (22-30) mmol/L BUN 31 H (7-17) mg/dL Calcium 8.2 L (8.4-10.2) mg/dL Assessment and Plan Plan: Assessment: #1. Acute exacerbation of chronic diastolic heart failure, likely triggered by atrial fibrillation with RVR #2. Persistent atrial fibrillation, on chronic anticoagulation with Eliquis #3. History of COPD #4. Hypertension #5. DJD #6. History of dual-chamber permanent pacemaker insertion for history of sinus pause Plan: Continue current medical treatment, diuretics per cardiology, patient is breathing easier, she is diuresing. Lower extremity edema is improving, continue the Symbicort, avoid the short acting bronchodilators at this time, in order not to exacerbate the tachycardia or A. fib RVR. Continue to follow I performed a history & physical examination of the patient and discussed their management with my nurse practitioner, Kenna Ervin. I reviewed the nurse practitioner's note and agree with the documented findings and plan of care. Lung sounds are positive for diminished breath sounds, with a few end expiratory wheezes. The findings and the impression was discussed with the patient. I attest to the documentation by the nurse practitioner. Time with Patient: Less than 30
[2018-07-13] MEDS: MELATONIN 3 MG TABLET PO SCH (20:46)
[2018-07-13] MEDS: LOSARTAN 25 MG TAB PO SCH (20:46)
[2018-07-14] MEDS: SYMBICORT 160-4.5 MCG INHALER INHALATION SCH ×2 (08:08→19:28)
[2018-07-14] MEDS: DILTIAZEM CD 180 MG CAP.ER.24H PO SCH (08:59)
[2018-07-14] MEDS: CALCIUM CARBONATE 500 MG CHEWABLE PO SCH (08:59)
[2018-07-14] MEDS: APIXABAN 2.5 MG TABLET PO SCH ×2 (09:00→21:51)
[2018-07-14] MEDS: FAMOTIDINE 20 MG TAB PO SCH (09:00)
[2018-07-14] MEDS: ASPIRIN 81 MG PO SCH (09:00)
[2018-07-14] MEDS: METOPROLOL TARTRATE 25 MG TAB PO SCH ×3 (09:00→21:51)
[2018-07-14] MEDS: FUROSEMIDE 10 MG/ML 4 ML VIAL IV SCH ×3 (09:01→21:52)
--- NOTE | 2018-07-14 09:03 | PN ---
PROGRESS NOTE Zehra is an 87-year-old lady who was admitted to hospital with combination of CHF and COPD exacerbation and has atrial fibrillation with poorly controlled ventricular rate. This morning she is feeling somewhat better, but continues to have shortness of breath. Her leg edema has resolved. PHYSICAL EXAMINATION: On exam, her heart rate is elevated at 120 beats per minute. Blood pressure is 134/88. Respiratory rate is 18. Chest exam reveals bilateral rhonchi. Heart exam reveals first and second heart sounds. No gallop. Examination of extremities did not reveal any edema. Peripheral pulses are palpable. LABS: Labs show that her creatinine is 0.9. Myocardial infarction was ruled out. ASSESSMENT: 1. Acute exacerbation of chronic diastolic heart failure. 2. Chronic atrial fibrillation with poorly controlled ventricular rate. 3. Chronic obstructive pulmonary disease. PLAN: I will add digoxin to the metoprolol 75 t.i.d. and Cardizem CD 300 q. daily that she is currently on. MMODL / DAMARIN: [id number] /
[2018-07-14] MEDS: ISOSORBIDE MONONITRATE ER 15 MG TAB PO SCH (09:06)
[2018-07-14] MEDS: DIGOXIN 250 MCG TAB PO SCH (12:02)
--- NOTE | 2018-07-14 12:48 | P.PN ---
Subjective Progress Note Date: 07/14/18 This is an 87-year-old female patient of Dr. Gutiérrez and Dr. 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 Patient had a recent hospitalization June 18 through the which time she was treated for acute hypoxic respiratory failure secondary to COPD, acute on chronic diastolic heart failure with episodes of A. fib with RVR. Patient was discharged home with homecare. Patient presented to [facility] emergency center today due to severe shortness of breath that started last night and progressively worsened during the night. She denies any fever or chills. She denies significant lower extremity edema. She just returned from [place] 2 days prior. She denies any runny no stuffy nose, sore throat, body aches. EKG was a atrial fibrillation at [address]-T wave changes. White count 9.5, hemoglobin 12.7, platelet count 128, BUN 23 and creatinine 1.03, CO2 35, sodium 138, potassium 4.0, chloride 99, blood sugar 152. Total bilirubin 1.8, ALT 58. Troponin negative. ProBNP 9120. Chest x-ray reveals correlate for heart failure exacerbation as there is cardiomegaly with tiny bilateral pleural effusions and mild interstitial edema. Additional patchy posterior left basilar atelectasis and/or infiltrate. Patient was started on DuoNeb treatments , Cardizem drip, IV Lasix at 40 mg every 12 hours and resumed on home medications and admitted to the cardiac stepdown unit. Consults were requested with cardiology and pulmonary medicine. 07/11: Patient states that she is not diuresing very much. She does state that her breathing is much improved from yesterday. Her weight is down 0.2 kg from yesterday. She has been afebrile, pressure 105/65, pulse ox 93% on 2 L nasal cannula. Patient is not O2 dependent. 07/12: Patient remains on Cardizem drip. She has been resumed on her home dose of Lopressor which is 75 mg 3 times daily. Discuss with cardiology now K to just continue Cardizem drip and resume her Cardizem CD 300 mg daily. Blood pressures noted in the lower side. Heart rate is running in the 90s and low 100s. She is currently on Lasix 40 mg IV every 12 hours. Patient states her breathing and lower extremity edema is improved. She has met with the dietitian and has been provided information regarding her diet and understands that she needs to avoid salt. Anticipate probable discharge in the next 24 hours. PT consult will be requested. Patient is planning to return home with VNA. 07/13: Patient states her breathing is awful today. She has increased shortness of breath with ambulating just to the bathroom. In general she states her breathing is improved since she arrived. Heart rate is at 117. She is on oral Cardizem and metoprolol. Sodium 135, potassium 4.4, BUN 31 creatinine 0.9. Cardiology is recommending to continue IV Lasix today and plan for oral tomorrow. Documented weight is up from yesterday. Question whether this is accurate. Patient has a documented pulse ox of 88% with ambulation without oxygen today. We will plan to reevaluate tomorrow for home oxygen need. Case management is following. 07/14: Patient states that her breathing is better from yesterday but is not back to baseline. She still has some lower extremity edema. She states she was up all night every hour. Weight is up by 0.4 kg from yesterday. We will plan to increase Lasix frequency to every 8 hours, Lasix 40 mg IV. BUN 31 and creatinine 0.9. Sodium 135, potassium 4.4, chloride 100, CO2 32. We'll plan to continue IV Lasix and monitor over the weekend. Review of Systems All systems: negative Constitutional: Reports fatigue, Reports weakness, Denies chills, Denies fever, Denies poor appetite, Denies weight loss Eyes: denies blurred vision, denies pain Ears, nose, mouth and throat: Denies headache, Denies nasal congestion, Denies nasal discharge, Denies sinus pain, Denies sinus pressure, Denies sore throat, Denies vertigo Cardiovascular: Reports decreased exercise tolerance, Reports dyspnea on exertion, denies syncope, Denies chest pain, Denies edema, Denies high blood pressure, Denies leg edema, Denies lightheadedness, Denies palpitations, reports shortness of breath-improving Respiratory: Reports cough, Reports cough with sputum, Reports dyspnea, Denies excessive sputum, Denies hemoptysis, Denies home oxygen, Denies wheezing Gastrointestinal: Denies abdominal pain, Denies diarrhea, Denies loss of appetite, Denies melena, Denies nausea, Denies vomiting Genitourinary: Denies dysuria, Denies hematuria, Denies urgency, Denies urinary frequency Musculoskeletal: Reports muscle weakness, Denies frequent falls, Denies gait dysfunction, Denies myalgias Integumentary: Reports wounds, Denies pruritus, Denies rash Neurological: Denies aphasia, Denies change in mentation, Denies confusion, Denies gait dysfunction, Denies head injury, Denies headaches, Denies numbness, Denies seizures, Denies weakness Psychiatric: Denies anxiety, Denies depression Endocrine: Denies fatigue, Denies weight change Objective - Vital Signs Vital signs: Vital Signs Temp 97.6 F 07/14/18 04:00 Pulse 125 H 07/14/18 04:00 Resp 18 07/14/18 04:00 BP 134/88 07/14/18 04:00 Pulse Ox 94 L 07/14/18 04:00 Intake & Output 07/13/18 07/14/18 07/14/18 18:59 06:59 18:59 Intake Total 318 240 Output Total 1000 Balance 318 -1000 240 Weight 81.6 kg Intake: Oral 318 240 Output: Urine 1000 Other: Voiding Method Toilet Toilet # Voids 2 1 - Exam Gen: This is an 87-year-old female. Patient is sitting in recliner and appears to be comfortable and in no respiratory distress. Patient has accessory muscle usage with very minimal activity. HEENT: Head is atraumatic, normocephalic. Pupils equal, round. Sclerae is anicteric. NECK: Supple. No JVD. No lymphadenopathy. No thyromegaly. LUNGS: Bilateral mild expiratory wheeze. No rhonchi. No intercostal retractions. HEART: Regular rate and rhythm. No murmur. ABDOMEN: Soft. Bowel sounds are present. No masses. No tenderness. EXTREMITIES: Trace-1+ bilateral pedal edema. No calf tenderness. Weeping noted from wounds on the lower extremities bilaterally. NEUROLOGICAL: Patient is awake, alert and oriented x3. Cranial nerves 2 through 12 are grossly intact. - Labs CBC & Chem 7: 07/10/18 11:40 07/13/18 05:40 Assessment and Plan Plan: 1. Dyspnea secondary to moderately severe COPD, acute on chronic diastolic heart failure and possibly related to episodes of A. fib with RVR. Component of coronary artery disease not ruled out. Patient was started on Cardizem drip. Cardizem drip discontinued and Cardizem CD 300 mg resumed as well as Lopressor 75 mg 3 times daily. Continue DuoNeb treatments, Symbicort twice daily, Lasix increased to IV 40 mg every 8 hours. Cardiology consult and pulmonary medicine consult. 2. COPD. Continue DuoNeb treatments every 4 hours, Symbicort 1 puff twice daily 3. Acute on chronic diastolic heart failure. Cardiology consult is appreciated. Continue IV Lasix 40 mg every 12 hours, I&O and daily weights. Monitor electrolytes and renal function. 4. Paroxysmal atrial fibrillation. Discontinue Cardizem drip and resume Cardizem CD 300 mg daily, continue eliquis 2.5 mg twice daily, Lopressor 75 mg 3 times daily. 5. Hypertension. Continue losartan 25 mg daily, Lopressor, Cardizem, Imdur. 6. DVT prophylaxis. Eliquis. 7. GI prophylaxis. Pepcid. 8. Abrasions and edema to the lower extremities with weeping of serous material. Therahoney daily. Discharge plan: home with VNA most likely in the next 24-48 hours. Impression and plan of care have been directed as dictated by the signing physician. Noelle Gilbert nurse practitioner acting as scribe for signing physician.
--- NOTE | 2018-07-14 14:19 | P.PN ---
Subjective Progress Note Date: 07/14/18 Principal diagnosis: Acute exacerbation of chronic diastolic heart failure secondary to atrial fibrillation with a rapid ventricular response This is a 87-year-old white female patient past medical history of chronic congestive heart failure, chronic atrial fibrillation, COPD who came into the hospital on 07/10/2018 with complaints of increasing shortness of breath, weight gain, orthopnea, and exertional dyspnea. She states her lower extremities have been increasingly more swollen. She denied any cough, denied any phlegm production, no chest pain, no fever or chills, nausea, vomiting or diarrhea. Chest x-ray on admission showed renomegaly, make emphysematous changes, with left basilar opacity posteriorly, tiny bilateral pleural effusions and fluid in the major fissure, mild interstitial edema. ProBNP was 9120, troponins were negative 3. KG showed persistent atrial fibrillation, with rapid ventricular response, with a rate of 117 BPM. Last echocardiogram from June showed an ejection fraction of 60-65%. Patient has been seen by cardiology, she is being diuresed. Responding well to Lasix. Reading easier today. Currently on 2 L per nasal cannula pulse ox is 96%, hemodynamically stable, afebrile, lung sounds are diminished air entry bilaterally, with fine expiratory wheezing. Patient is on IV Lasix, Symbicort. She is on Eliquis for anticoagulation. She remains in A. fib, but her rate is better controlled, she does have a permanent pacemaker in place for history of heart block. The patient is seen today 07/14/2017 in follow-up on the cardiac care unit. She is currently sitting up in a chair at the bedside. She is awake and alert in no acute distress. She is breathing easier today as compared to yesterday. Really maintaining good O2 saturations in the high 90s on 2 L/m per nasal cannula. She's afebrile. Hemodynamically stable. Heart rate better controlled. Remains in atrial fib. Anticoagulated with Eliquis. She remains on Lasix IV 40 mg every 8 hours. She remains on Symbicort Objective - Vital Signs Vital signs: Vital Signs Temp 97.8 F 07/14/18 12:00 Pulse 79 07/14/18 12:00 Resp 16 07/14/18 12:00 BP 123/73 07/14/18 12:00 Pulse Ox 99 07/14/18 12:00 Intake & Output 07/13/18 07/14/18 07/14/18 18:59 06:59 18:59 Intake Total 318 1160 Output Total 1000 Balance 318 -1000 1160 Weight 81.6 kg Intake: Oral 318 1160 Output: Urine 1000 Other: Voiding Method Toilet Toilet Toilet # Voids 2 1 - Exam GENERAL EXAM: Alert, active, comfortable in no apparent distress. On 2 L per nasal cannula. HEAD: Normocephalic. EYES: Normal reaction of pupils, equal size. NOSE: Clear with pink turbinates. THROAT: No erythema or exudates. NECK: No masses, no JVD. CHEST: No chest wall deformity. LUNGS: Equal air entry with crackles in the posterior bases. CVS: S1 and S2 normal with no audible murmur, irregular rhythm. ABDOMEN: No hepatosplenomegaly, normal bowel sounds, no guarding or rigidity. SPINE: No scoliosis or deformity SKIN: No rashes CENTRAL NERVOUS SYSTEM: No focal deficits, tone is normal in all 4 extremities. EXTREMITIES: There is no peripheral edema. No clubbing, no cyanosis. Peripheral pulses are intact. - Labs CBC & Chem 7: 07/10/18 11:40 07/13/18 05:40 Assessment and Plan Assessment: Assessment: #1. Acute exacerbation of chronic diastolic heart failure, likely triggered by atrial fibrillation with RVR #2. Persistent atrial fibrillation, on chronic anticoagulation with Eliquis #3. History of COPD #4. Hypertension #5. DJD #6. History of dual-chamber permanent pacemaker insertion for history of sinus pause Plan: The patient was seen and evaluated by Dr. Rajan. She is improved from the pulmonary standpoint. She remains on IV diuretics. Her heart rate is better controlled remains in atrial fibrillation. Anticoagulated with Eliquis. Continue Symbicort. We will continue to follow make further recommendations based on her clinical status. I, the cosigning physician, performed a history & physical examination of the patient. Lungs sounds with crackles in the bilateral posterior bases. Maintaining good O2 saturations in the 90s on 2 L/m per nasal cannula. I discussed the assessment and plan of care with my nurse practitioner, Yessica Doe. I attest to the above note as dictated by her.
[2018-07-14] MEDS: POTASSIUM CHLORIDE ER 10 MEQ TAB.ER.PRT PO SCH (17:50)
[2018-07-14] MEDS: MELATONIN 3 MG TABLET PO SCH (21:51)
[2018-07-14] MEDS: LOSARTAN 25 MG TAB PO SCH (21:56)
[2018-07-15 06:55] LABS: HCT 34.9 % (34.0-46.0); HGB 11.2 gm/dL (11.4-16.0); MCH 29.5 pg (25.0-35.0); MCHC 32.2 g/dL (31.0-37.0); MCV 91.7 fL (80.0-100.0); Mean Platelet Volume 6.2; Platelet Count 201 k/uL (150-450); RDW 15.9 % (11.5-15.5)
[2018-07-15 07:09] LABS: Potassium 3.8 mmol/L (3.5-5.1)
[2018-07-15] MEDS: SYMBICORT 160-4.5 MCG INHALER INHALATION SCH (07:55)
[2018-07-15] MEDS: DILTIAZEM CD 180 MG CAP.ER.24H PO SCH (08:59)
[2018-07-15] MEDS: FUROSEMIDE 10 MG/ML 4 ML VIAL IV SCH ×3 (08:59→22:15)
[2018-07-15] MEDS: CALCIUM CARBONATE 500 MG CHEWABLE PO SCH (09:00)
[2018-07-15] MEDS: FAMOTIDINE 20 MG TAB PO SCH (09:00)
[2018-07-15] MEDS: ISOSORBIDE MONONITRATE ER 15 MG TAB PO SCH (09:00)
[2018-07-15] MEDS: ASPIRIN 81 MG PO SCH (09:00)
[2018-07-15] MEDS: DIGOXIN 250 MCG TAB PO SCH (09:00)
[2018-07-15] MEDS: APIXABAN 2.5 MG TABLET PO SCH ×2 (09:00→22:15)
--- NOTE | 2018-07-15 10:26 | P.PN ---
Subjective Progress Note Date: 07/15/18 This is an 87-year-old female patient of Dr. Gutiérrez and Dr. 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 Patient had a recent hospitalization June 18 through the which time she was treated for acute hypoxic respiratory failure secondary to COPD, acute on chronic diastolic heart failure with episodes of A. fib with RVR. Patient was discharged home with homecare. Patient presented to [facility] emergency center today due to severe shortness of breath that started last night and progressively worsened during the night. She denies any fever or chills. She denies significant lower extremity edema. She just returned from [place] 2 days prior. She denies any runny no stuffy nose, sore throat, body aches. EKG was a atrial fibrillation at [address]-T wave changes. White count 9.5, hemoglobin 12.7, platelet count 128, BUN 23 and creatinine 1.03, CO2 35, sodium 138, potassium 4.0, chloride 99, blood sugar 152. Total bilirubin 1.8, ALT 58. Troponin negative. ProBNP 9120. Chest x-ray reveals correlate for heart failure exacerbation as there is cardiomegaly with tiny bilateral pleural effusions and mild interstitial edema. Additional patchy posterior left basilar atelectasis and/or infiltrate. Patient was started on DuoNeb treatments , Cardizem drip, IV Lasix at 40 mg every 12 hours and resumed on home medications and admitted to the cardiac stepdown unit. Consults were requested with cardiology and pulmonary medicine. 07/11: Patient states that she is not diuresing very much. She does state that her breathing is much improved from yesterday. Her weight is down 0.2 kg from yesterday. She has been afebrile, pressure 105/65, pulse ox 93% on 2 L nasal cannula. Patient is not O2 dependent. 07/12: Patient remains on Cardizem drip. She has been resumed on her home dose of Lopressor which is 75 mg 3 times daily. Discuss with cardiology now K to just continue Cardizem drip and resume her Cardizem CD 300 mg daily. Blood pressures noted in the lower side. Heart rate is running in the 90s and low 100s. She is currently on Lasix 40 mg IV every 12 hours. Patient states her breathing and lower extremity edema is improved. She has met with the dietitian and has been provided information regarding her diet and understands that she needs to avoid salt. Anticipate probable discharge in the next 24 hours. PT consult will be requested. Patient is planning to return home with VNA. 07/13: Patient states her breathing is awful today. She has increased shortness of breath with ambulating just to the bathroom. In general she states her breathing is improved since she arrived. Heart rate is at 117. She is on oral Cardizem and metoprolol. Sodium 135, potassium 4.4, BUN 31 creatinine 0.9. Cardiology is recommending to continue IV Lasix today and plan for oral tomorrow. Documented weight is up from yesterday. Question whether this is accurate. Patient has a documented pulse ox of 88% with ambulation without oxygen today. We will plan to reevaluate tomorrow for home oxygen need. Case management is following. 07/14: Patient states that her breathing is better from yesterday but is not back to baseline. She still has some lower extremity edema. She states she was up all night every hour. Weight is up by 0.4 kg from yesterday. We will plan to increase Lasix frequency to every 8 hours, Lasix 40 mg IV. BUN 31 and creatinine 0.9. Sodium 135, potassium 4.4, chloride 100, CO2 32. We'll plan to continue IV Lasix and monitor over the weekend. 07/15: Patient states that she is feeling much better today in general and her breathing is better today from yesterday. She denies having any chest pain. She states she has some lightheadedness after she takes all of her morning medication but she knows to get up slowly. Documented heart rate is running in the low 100s but on exam heart rate is running in the 80s. Cardiology has increased her Cardizem CD to 360 mg daily and added and digoxin 250 g daily. Lasix is currently at 40 mg every 8 hours IV push. Pulse ox is 97% on 2 L nasal cannula. Sodium 135, BUN 20 creatinine 0.78. Review of Systems All systems: negative Constitutional: Reports fatigue, Reports weakness, Denies chills, Denies fever, Denies poor appetite, Denies weight loss Eyes: denies blurred vision, denies pain Ears, nose, mouth and throat: Denies headache, Denies nasal congestion, Denies nasal discharge, Denies sinus pain, Denies sinus pressure, Denies sore throat, Denies vertigo Cardiovascular: Reports decreased exercise tolerance, Reports dyspnea on exertion, denies syncope, Denies chest pain, Denies edema, Denies high blood pressure, Denies leg edema, Denies lightheadedness, Denies palpitations, reports shortness of breath-improving Respiratory: Reports cough, Reports cough with sputum, Reports dyspnea-improving , Denies excessive sputum, Denies hemoptysis, Denies home oxygen, Denies wheezing Gastrointestinal: Denies abdominal pain, Denies diarrhea, Denies loss of appetite, Denies melena, Denies nausea, Denies vomiting Genitourinary: Denies dysuria, Denies hematuria, Denies urgency, Denies urinary frequency Musculoskeletal: Reports muscle weakness, Denies frequent falls, Denies gait dysfunction, Denies myalgias Integumentary: Reports wounds, Denies pruritus, Denies rash Neurological: Denies aphasia, Denies change in mentation, Denies confusion, Denies gait dysfunction, Denies head injury, Denies headaches, Denies numbness, Denies seizures, Denies weakness Psychiatric: Denies anxiety, Denies depression Endocrine: Denies fatigue, Denies weight change Objective - Vital Signs Vital signs: Vital Signs Temp 98.4 F 07/15/18 07:45 Pulse 115 H 07/15/18 07:45 Resp 16 07/15/18 07:45 BP 114/76 07/15/18 07:45 Pulse Ox 97 07/15/18 07:45 Intake & Output 07/14/18 07/15/18 07/15/18 18:59 06:59 18:59 Intake Total 1382 270 Output Total 900 2900 Balance 482 -2630 Weight 81.3 kg Intake: Oral 1382 270 Output: Urine 900 2900 Other: Voiding Method Toilet Toilet # Voids 1 # Bowel Movements 1 1 - Exam Gen: This is an 87-year-old female. Patient is sitting in recliner and appears to be more comfortable today. HEENT: Head is atraumatic, normocephalic. Pupils equal, round. Sclerae is anicteric. NECK: Supple. No JVD. No lymphadenopathy. No thyromegaly. LUNGS: Bilateral mild expiratory wheeze. No rhonchi. No intercostal retractions. HEART: Regular rate and rhythm. No murmur. ABDOMEN: Soft. Bowel sounds are present. No masses. No tenderness. EXTREMITIES: Trace-1+ bilateral pedal edema. No calf tenderness. Weeping noted from wounds on the lower extremities bilaterally. NEUROLOGICAL: Patient is awake, alert and oriented x3. Cranial nerves 2 through 12 are grossly intact. - Labs CBC & Chem 7: 07/15/18 06:20 07/15/18 06:20 Labs: Abnormal Lab Results - Last 24 Hours (Table) 07/15/18 07/15/18 Range/Units 06:20 06:20 Hgb 11.2 L (11.4-16.0) gm/dL RDW 15.9 H (11.5-15.5) % Sodium 135 L (137-145) mmol/L Chloride 93 L (98-107) mmol/L Carbon Dioxide 39 H (22-30) mmol/L BUN 20 H (7-17) mg/dL Glucose 102 H (74-99) mg/dL Calcium 8.0 L (8.4-10.2) mg/dL Assessment and Plan Plan: 1. Dyspnea secondary to moderately severe COPD, acute on chronic diastolic heart failure and possibly related to episodes of A. fib with RVR. Component of coronary artery disease not ruled out. Patient was started on Cardizem drip. Cardizem drip discontinued and Cardizem CD increased 360 mg resumed as well as Lopressor 75 mg 3 times daily. Continue DuoNeb treatments, Symbicort twice daily, Lasix IV 40 mg every 8 hours. Cardiology consult and pulmonary medicine consult. 2. COPD. Continue DuoNeb treatments every 4 hours, Symbicort 1 puff twice daily 3. Acute on chronic diastolic heart failure. Cardiology consult is appreciated. Continue IV Lasix 40 mg every 12 hours, I&O and daily weights. Monitor electrolytes and renal function. 4. Paroxysmal atrial fibrillation. Discontinue Cardizem drip and resume Cardizem CD increased to 360 mg daily, added digoxin, continue eliquis 2.5 mg twice daily, Lopressor 75 mg 3 times daily. 5. Hypertension. Continue losartan 25 mg daily, Lopressor, Cardizem, Imdur. 6. DVT prophylaxis. Eliquis. 7. GI prophylaxis. Pepcid. 8. Abrasions and edema to the lower extremities with weeping of serous material. Yennifer daily. Discharge plan: home with VNA most likely in the next 24-48 hours. Impression and plan of care have been directed as dictated by the signing physician. Noelle Gilbert nurse practitioner acting as scribe for signing physician.
--- NOTE | 2018-07-15 12:19 | P.PN ---
Subjective This is a pleasant 87-year-old female admitted to the hospital with combination of chronic diastolic heart failure and COPD exacerbation. She also has atrial fibrillation with poorly controlled ventricular rate. Digoxin was added to her regimen yesterday. She is seen and examined sitting on the edge of the bed continuing to complain of shortness of breath. Currently maintained on Lopressor 75 mg 3 times a day, losartan 25 mg daily, Imdur 15 mg daily, diltiazem 360 mg daily, digoxin 250 mg daily, aspirin 81 mg daily, Eliquis 2.5 mg twice a day and Lasix 40 mg IV 3 times a day. Blood pressure 105/66 heart rate 87 afebrile maintaining oxygen saturation on nasal cannula. Laboratory data reviewed, hemoglobin 11.2, platelets 201, sodium 135, potassium 3.8, creatinine 0.78. GENERAL: Well-appearing, well-nourished and in no acute distress. NECK: Supple without JVD or thyromegaly. LUNGS: Rhonchi noted throughout, no wheezes or rales. Respiration equal and unlabored. HEART: Irregular rate and rhythm without murmurs, rubs or gallops. S1 and S2 heard. EXTREMITIES: Normal range of motion, trace edema, DANIE hose in place. No clubbing or cyanosis. Peripheral pulses intact. ASSESSMENT Acute on chronic diastolic heart failure Chronic persistent atrial fibrillation on long-term anticoagulation with poor ventricular response Acute exacerbation of chronic COPD. PLAN Continue current medical regimen. Repeat chest x-ray Consider transitioning to oral diuretics tomorrow morning. We will continue to follow and make recommendations. The above impression and plan of care have been discussed and directed by the signing physician. Aubrie Camacho, nurse practitioner, acting as scribe for signing physician. Objective - Vital Signs Vital signs: Vital Signs Temp 98.0 F 07/15/18 11:48 Pulse 87 07/15/18 11:48 Resp 16 07/15/18 11:48 BP 105/66 07/15/18 11:48 Pulse Ox 97 07/15/18 11:48 Intake & Output 07/14/18 07/15/18 07/15/18 18:59 06:59 18:59 Intake Total 1382 270 240 Output Total 900 2900 Balance 482 -2630 240 Weight 81.3 kg Intake: Oral 1382 270 240 Output: Urine 900 2900 Other: Voiding Method Toilet Toilet # Voids 1 # Bowel Movements 1 1 - Labs CBC & Chem 7: 07/15/18 06:20 07/15/18 06:20 Labs: Abnormal Lab Results - Last 24 Hours (Table) 07/15/18 07/15/18 Range/Units 06:20 06:20 Hgb 11.2 L (11.4-16.0) gm/dL RDW 15.9 H (11.5-15.5) % Sodium 135 L (137-145) mmol/L Chloride 93 L (98-107) mmol/L Carbon Dioxide 39 H (22-30) mmol/L BUN 20 H (7-17) mg/dL Glucose 102 H (74-99) mg/dL Calcium 8.0 L (8.4-10.2) mg/dL
--- NOTE | 2018-07-15 12:33 | XR ---
EXAMINATION TYPE: XR chest 2V DATE OF EXAM: 07/15/2018 HISTORY: sob, re-eval. REFERENCE: Previous study dated 07/12/2018. FINDINGS: There is a bipolar pacemaker place on the left. Lung volumes are prominent. The heart is upper limits of normal in size. There is an area of persiste nt atelectasis or scarring at the left lung base and less conspicuous. The right lung base. I do not see evidence of superimposed pneumonia or edema. There is mild blunting of the left CP angle. I could not exclude a tiny left effusion. IMPRESSION: 1. COPD. 2. BORDERLINE CARDIOMEGALY. 3. SCARRING VERSUS ATELECTASIS, BOTH LUNG BASES. 4. I COULD NOT EXCLUDE A TINY LEFT EFFUSION.
--- NOTE | 2018-07-15 13:29 | P.PN ---
Subjective Progress Note Date: 07/15/18 Principal diagnosis: Acute exacerbation of chronic diastolic heart failure secondary to atrial fibrillation with a rapid ventricular response This is a 87-year-old white female patient past medical history of chronic congestive heart failure, chronic atrial fibrillation, COPD who came into the hospital on 07/10/2018 with complaints of increasing shortness of breath, weight gain, orthopnea, and exertional dyspnea. She states her lower extremities have been increasingly more swollen. She denied any cough, denied any phlegm production, no chest pain, no fever or chills, nausea, vomiting or diarrhea. Chest x-ray on admission showed renomegaly, make emphysematous changes, with left basilar opacity posteriorly, tiny bilateral pleural effusions and fluid in the major fissure, mild interstitial edema. ProBNP was 9120, troponins were negative 3. KG showed persistent atrial fibrillation, with rapid ventricular response, with a rate of 117 BPM. Last echocardiogram from June showed an ejection fraction of 60-65%. Patient has been seen by cardiology, she is being diuresed. Responding well to Lasix. Reading easier today. Currently on 2 L per nasal cannula pulse ox is 96%, hemodynamically stable, afebrile, lung sounds are diminished air entry bilaterally, with fine expiratory wheezing. Patient is on IV Lasix, Symbicort. She is on Eliquis for anticoagulation. She remains in A. fib, but her rate is better controlled, she does have a permanent pacemaker in place for history of heart block. The patient is seen today 07/14/2017 in follow-up on the cardiac care unit. She is currently sitting up in a chair at the bedside. She is awake and alert in no acute distress. She is breathing easier today as compared to yesterday. Really maintaining good O2 saturations in the high 90s on 2 L/m per nasal cannula. She's afebrile. Hemodynamically stable. Heart rate better controlled. Remains in atrial fib. Anticoagulated with Eliquis. She remains on Lasix IV 40 mg every 8 hours. She remains on Symbicort Patient is seen again today 12/13/2017 in follow-up on the cardiac care unit. She is awake and alert in no acute distress. She is sitting up in a chair at the bedside. She is breathing better today as compared to yesterday. She is still having ongoing issues with atrial fibrillation with uncontrolled ventricular rate. Currently in the 110's. White count 6.0. Hemoglobin 11.2. Creatinine 0.78. Remains on IV diuretics Lasix 40 mg every 8 hours. Objective - Vital Signs Vital signs: Vital Signs Temp 98.0 F 07/15/18 11:48 Pulse 87 07/15/18 11:48 Resp 16 07/15/18 11:48 BP 105/66 07/15/18 11:48 Pulse Ox 97 07/15/18 11:48 Intake & Output 07/14/18 07/15/18 07/15/18 18:59 06:59 18:59 Intake Total 1382 270 240 Output Total 900 2900 Balance 482 -2630 240 Weight 81.3 kg Intake: Oral 1382 270 240 Output: Urine 900 2900 Other: Voiding Method Toilet Toilet # Voids 1 3 # Bowel Movements 1 1 - Exam GENERAL EXAM: Alert, active pleasant 87-year-old female, comfortable in no apparent distress. On 2 L per nasal cannula. HEAD: Normocephalic. EYES: Normal reaction of pupils, equal size. NOSE: Clear with pink turbinates. THROAT: No erythema or exudates. NECK: No masses, no JVD. CHEST: No chest wall deformity. LUNGS: Equal air entry with crackles in the posterior bases. CVS: S1 and S2 normal with no audible murmur, irregular rhythm. ABDOMEN: No hepatosplenomegaly, normal bowel sounds, no guarding or rigidity. SPINE: No scoliosis or deformity SKIN: No rashes CENTRAL NERVOUS SYSTEM: No focal deficits, tone is normal in all 4 extremities. EXTREMITIES: There is no peripheral edema. No clubbing, no cyanosis. Peripheral pulses are intact. - Labs CBC & Chem 7: 07/15/18 06:20 07/15/18 06:20 Labs: Abnormal Lab Results - Last 24 Hours (Table) 07/15/18 07/15/18 Range/Units 06:20 06:20 Hgb 11.2 L (11.4-16.0) gm/dL RDW 15.9 H (11.5-15.5) % Sodium 135 L (137-145) mmol/L Chloride 93 L (98-107) mmol/L Carbon Dioxide 39 H (22-30) mmol/L BUN 20 H (7-17) mg/dL Glucose 102 H (74-99) mg/dL Calcium 8.0 L (8.4-10.2) mg/dL Assessment and Plan Assessment: Assessment: #1. Acute exacerbation of chronic diastolic heart failure, likely triggered by atrial fibrillation with RVR #2. Persistent atrial fibrillation, on chronic anticoagulation with Eliquis #3. History of COPD #4. Hypertension #5. DJD #6. History of dual-chamber permanent pacemaker insertion for history of sinus pause Plan: The patient was seen and evaluated by Dr. Rajan. She is less short of breath today as compared to yesterday. She remains on IV diuretics. Her heart rate is better controlled remains in atrial fibrillation. Anticoagulated with Eliquis. Continue Symbicort. We will continue to follow make further recommendations based on her clinical status. I, the cosigning physician, performed a history & physical examination of the patient. Lungs sounds with crackles in the bilateral posterior bases. Maintaining good O2 saturations in the 90s on 2 L/m per nasal cannula. I discussed the assessment and plan of care with my nurse practitioner, Yessica Doe. I attest to the above note as dictated by her.
[2018-07-15] MEDS: POTASSIUM CHLORIDE ER 10 MEQ TAB.ER.PRT PO SCH (15:47)
[2018-07-15] MEDS: METOPROLOL TARTRATE 25 MG TAB PO SCH ×2 (15:47→22:16)
[2018-07-15] MEDS: LOSARTAN 25 MG TAB PO SCH (22:15)
[2018-07-15] MEDS: MELATONIN 3 MG TABLET PO SCH (22:15)
[2018-07-16] MEDS: SYMBICORT 160-4.5 MCG INHALER INHALATION SCH ×2 (04:08→19:36)
[2018-07-16] MEDS: DILTIAZEM CD 180 MG CAP.ER.24H PO SCH (06:19)
[2018-07-16] MEDS: METOPROLOL TARTRATE 25 MG TAB PO SCH ×3 (06:20→21:13)
[2018-07-16 07:18] LABS: Calcium 8.6 mg/dL (8.4-10.2); Potassium 4.1 mmol/L (3.5-5.1)
[2018-07-16] MEDS: FUROSEMIDE 10 MG/ML 4 ML VIAL IV SCH (08:10)
[2018-07-16] MEDS: DIGOXIN 250 MCG TAB PO SCH (09:10)
[2018-07-16] MEDS: ISOSORBIDE MONONITRATE ER 15 MG TAB PO SCH (09:10)
[2018-07-16] MEDS: APIXABAN 2.5 MG TABLET PO SCH ×2 (09:10→21:14)
[2018-07-16] MEDS: CALCIUM CARBONATE 500 MG CHEWABLE PO SCH (09:10)
[2018-07-16] MEDS: FAMOTIDINE 20 MG TAB PO SCH (09:10)
[2018-07-16] MEDS: ASPIRIN 81 MG PO SCH (09:10)
--- NOTE | 2018-07-16 11:11 | P.PN ---
Subjective Progress Note Date: 07/16/18 This is an 87-year-old female patient of Dr. Gutiérrez and Dr. 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 Patient had a recent hospitalization June 18 through the which time she was treated for acute hypoxic respiratory failure secondary to COPD, acute on chronic diastolic heart failure with episodes of A. fib with RVR. Patient was discharged home with homecare. Patient presented to [facility] emergency center today due to severe shortness of breath that started last night and progressively worsened during the night. She denies any fever or chills. She denies significant lower extremity edema. She just returned from [place] 2 days prior. She denies any runny no stuffy nose, sore throat, body aches. EKG was a atrial fibrillation at [address]-T wave changes. White count 9.5, hemoglobin 12.7, platelet count 128, BUN 23 and creatinine 1.03, CO2 35, sodium 138, potassium 4.0, chloride 99, blood sugar 152. Total bilirubin 1.8, ALT 58. Troponin negative. ProBNP 9120. Chest x-ray reveals correlate for heart failure exacerbation as there is cardiomegaly with tiny bilateral pleural effusions and mild interstitial edema. Additional patchy posterior left basilar atelectasis and/or infiltrate. Patient was started on DuoNeb treatments , Cardizem drip, IV Lasix at 40 mg every 12 hours and resumed on home medications and admitted to the cardiac stepdown unit. Consults were requested with cardiology and pulmonary medicine. 07/11: Patient states that she is not diuresing very much. She does state that her breathing is much improved from yesterday. Her weight is down 0.2 kg from yesterday. She has been afebrile, pressure 105/65, pulse ox 93% on 2 L nasal cannula. Patient is not O2 dependent. 07/12: Patient remains on Cardizem drip. She has been resumed on her home dose of Lopressor which is 75 mg 3 times daily. Discuss with cardiology now K to just continue Cardizem drip and resume her Cardizem CD 300 mg daily. Blood pressures noted in the lower side. Heart rate is running in the 90s and low 100s. She is currently on Lasix 40 mg IV every 12 hours. Patient states her breathing and lower extremity edema is improved. She has met with the dietitian and has been provided information regarding her diet and understands that she needs to avoid salt. Anticipate probable discharge in the next 24 hours. PT consult will be requested. Patient is planning to return home with VNA. 07/13: Patient states her breathing is awful today. She has increased shortness of breath with ambulating just to the bathroom. In general she states her breathing is improved since she arrived. Heart rate is at 117. She is on oral Cardizem and metoprolol. Sodium 135, potassium 4.4, BUN 31 creatinine 0.9. Cardiology is recommending to continue IV Lasix today and plan for oral tomorrow. Documented weight is up from yesterday. Question whether this is accurate. Patient has a documented pulse ox of 88% with ambulation without oxygen today. We will plan to reevaluate tomorrow for home oxygen need. Case management is following. 07/14: Patient states that her breathing is better from yesterday but is not back to baseline. She still has some lower extremity edema. She states she was up all night every hour. Weight is up by 0.4 kg from yesterday. We will plan to increase Lasix frequency to every 8 hours, Lasix 40 mg IV. BUN 31 and creatinine 0.9. Sodium 135, potassium 4.4, chloride 100, CO2 32. We'll plan to continue IV Lasix and monitor over the weekend. 07/15: Patient states that she is feeling much better today in general and her breathing is better today from yesterday. She denies having any chest pain. She states she has some lightheadedness after she takes all of her morning medication but she knows to get up slowly. Documented heart rate is running in the low 100s but on exam heart rate is running in the 80s. Cardiology has increased her Cardizem CD to 360 mg daily and added and digoxin 250 g daily. Lasix is currently at 40 mg every 8 hours IV push. Pulse ox is 97% on 2 L nasal cannula. Sodium 135, BUN 20 creatinine 0.78. 07/16: Patient's heart rate has been running mostly in the 70s and 80s and increasing with activity. Pulse ox is 92% to 94% on 2 L nasal cannula. CO2 43 , sodium 136, potassium 4.1, chloride 87. She is on Lasix 40 mg IV every 8 hours and has been switched to 40 mg twice daily orally by cardiology and we will add and Diamox 250 mg daily. She states she slept well last night but did have an episode in the night of severe shortness of breath.. Review of Systems All systems: negative Constitutional: Reports fatigue, Reports weakness, Denies chills, Denies fever, Denies poor appetite Eyes: denies blurred vision, denies pain Ears, nose, mouth and throat: Denies headache, Denies nasal congestion, Denies nasal discharge, Denies sinus pain, Denies sinus pressure, Denies sore throat, Denies vertigo Cardiovascular: Reports decreased exercise tolerance, Reports dyspnea on exertion, denies syncope, Denies chest pain, Denies edema, Denies high blood pressure, Denies leg edema, Denies lightheadedness, Denies palpitations, reports shortness of breath-improving Respiratory: Reports cough, Reports cough with sputum, Reports dyspnea-improving , Denies excessive sputum, Denies hemoptysis, Denies home oxygen, Denies wheezing Gastrointestinal: Denies abdominal pain, Denies diarrhea, Denies loss of appetite, Denies melena, Denies nausea, Denies vomiting Genitourinary: Denies dysuria, Denies hematuria, Denies urgency, Denies urinary frequency Musculoskeletal: Reports muscle weakness, Denies frequent falls, Denies gait dysfunction, Denies myalgias Integumentary: Reports wounds, Denies pruritus, Denies rash Neurological: Denies aphasia, Denies change in mentation, Denies confusion, Denies gait dysfunction, Denies head injury, Denies headaches, Denies numbness, Denies seizures, Denies weakness Psychiatric: Denies anxiety, Denies depression Endocrine: Denies fatigue, Denies weight change Objective - Vital Signs Vital signs: Vital Signs Temp 98.0 F 07/16/18 07:59 Pulse 125 H 07/16/18 07:59 Resp 18 07/16/18 07:59 BP 127/75 07/16/18 07:59 Pulse Ox 92 L 07/16/18 07:59 Intake & Output 07/15/18 07/16/18 07/16/18 18:59 06:59 18:59 Intake Total 720 Output Total 2900 Balance 720 -2900 Weight 83.2 kg Intake: Oral 720 Output: Urine 2900 Other: Voiding Method Toilet # Voids 3 2 # Bowel Movements 1 - Exam Gen: This is an 87-year-old female. Patient is sitting in recliner and appears to be more comfortable today. HEENT: Head is atraumatic, normocephalic. Pupils equal, round. Sclerae is anicteric. NECK: Supple. No JVD. No lymphadenopathy. No thyromegaly. LUNGS: Bilateral mild expiratory wheeze. No rhonchi. No intercostal retractions. HEART: Regular rate and rhythm. No murmur. ABDOMEN: Soft. Bowel sounds are present. No masses. No tenderness. EXTREMITIES: Trace-1+ bilateral pedal edema. No calf tenderness. Weeping noted from wounds on the lower extremities bilaterally. NEUROLOGICAL: Patient is awake, alert and oriented x3. Cranial nerves 2 through 12 are grossly intact. - Labs CBC & Chem 7: 07/15/18 06:20 07/16/18 05:45 Labs: Abnormal Lab Results - Last 24 Hours (Table) 07/16/18 Range/Units 05:45 Sodium 136 L (137-145) mmol/L Chloride 87 L (98-107) mmol/L Carbon Dioxide 43 H* (22-30) mmol/L Glucose 106 H (74-99) mg/dL Assessment and Plan Plan: 1. Dyspnea secondary to moderately severe COPD, acute on chronic diastolic heart failure and possibly related to episodes of A. fib with RVR. Component of coronary artery disease not ruled out. Patient was started on Cardizem drip. Cardizem drip discontinued and Cardizem CD increased 360 mg resumed as well as Lopressor 75 mg 3 times daily. Continue DuoNeb treatments, Symbicort twice daily, Lasix IV changed to 40 mg twice daily orally. Diamox added. Cardiology consult and pulmonary medicine consult. 2. COPD. Continue DuoNeb treatments every 4 hours, Symbicort 1 puff twice daily 3. Acute on chronic diastolic heart failure. Cardiology consult is appreciated. Continue IV Lasix 40 mg every 12 hours, I&O and daily weights. Monitor electrolytes and renal function. 4. Paroxysmal atrial fibrillation. Discontinue Cardizem drip and resume Cardizem CD increased to 360 mg daily, added digoxin, continue eliquis 2.5 mg twice daily, Lopressor 75 mg 3 times daily. 5. Hypertension. Continue losartan 25 mg daily, Lopressor, Cardizem, Imdur. 6. DVT prophylaxis. Eliquis. 7. GI prophylaxis. Pepcid. 8. Abrasions and edema to the lower extremities with weeping of serous material. Therahoney daily. Discharge plan: home with VNA on Tuesday. Impression and plan of care have been directed as dictated by the signing physician. Noelle Gilbert nurse practitioner acting as scribe for signing physician.
[2018-07-16] MEDS: acetaZOLAMIDE 250 MG TAB PO SCH (11:42)
--- NOTE | 2018-07-16 12:07 | P.PN ---
Subjective Progress Note Date: 07/16/18 Principal diagnosis: Acute exacerbation of chronic diastolic heart failure related to A. fib RVR This is a 87-year-old white female patient past medical history of chronic congestive heart failure, chronic atrial fibrillation, COPD who came into the hospital on 07/10/2018 with complaints of increasing shortness of breath, weight gain, orthopnea, and exertional dyspnea. She states her lower extremities have been increasingly more swollen. She denied any cough, denied any phlegm production, no chest pain, no fever or chills, nausea, vomiting or diarrhea. Chest x-ray on admission showed renomegaly, make emphysematous changes, with left basilar opacity posteriorly, tiny bilateral pleural effusions and fluid in the major fissure, mild interstitial edema. ProBNP was 9120, troponins were negative 3. KG showed persistent atrial fibrillation, with rapid ventricular response, with a rate of 117 BPM. Last echocardiogram from June showed an ejection fraction of 60-65%. Patient has been seen by cardiology, she is being diuresed. Responding well to Lasix. Reading easier today. Currently on 2 L per nasal cannula pulse ox is 96%, hemodynamically stable, afebrile, lung sounds are diminished air entry bilaterally, with fine expiratory wheezing. Patient is on IV Lasix, Symbicort. She is on Eliquis for anticoagulation. She remains in A. fib, but her rate is better controlled, she does have a permanent pacemaker in place for history of heart block. On 07/16/2018 patient seen in follow-up on selective care unit, she is sitting up in the chair, in no acute distress, lung sounds reveal minimal rales at the left lower base, she remains in A. fib, and the rate is currently controlled, at 68-72 BPM. Currently on 2 L per nasal cannula pulse ox is 92%, at times seems a heart rate does go up over 100 probably with activity. Afebrile, today' s labs have been reviewed, shows sodium of 136, potassium is 4.1, chloride is 87 , CO2 is 43, BUN is 15 and creatinine 0.80. She is on Eliquis for anticoagulation, she is on oral Cardizem, oral Lasix at 40 mg twice daily, Imdur , and Lopressor at 75 mg 3 times a day. She is on Symbicort. Lung sounds are negative for any wheezing or rhonchi. Objective - Vital Signs Vital signs: Vital Signs Temp 98.0 F 07/16/18 07:59 Pulse 125 H 07/16/18 07:59 Resp 18 07/16/18 07:59 BP 127/75 07/16/18 07:59 Pulse Ox 92 L 07/16/18 07:59 Intake & Output 07/15/18 07/16/18 07/16/18 18:59 06:59 18:59 Intake Total 720 240 Output Total 2900 Balance 720 -2900 240 Weight 83.2 kg Intake: Oral 720 240 Output: Urine 2900 Other: Voiding Method Toilet # Voids 3 2 # Bowel Movements 1 - Exam GENERAL EXAM: Alert, pleasant, 87-year-old white female comfortable in no apparent distress. HEAD: Normocephalic/atraumatic. EYES: Normal reaction of pupils, equal size. Conjunctiva pink, sclera white. NOSE: Clear with pink turbinates. THROAT: No erythema or exudates. NECK: No masses, no JVD, no thyroid enlargement, no adenopathy. CHEST: No chest wall deformity. Symmetrical expansion. LUNGS: Equal air entry with diminished breath sounds, with a few end expiratory wheezes CVS: Regular rate and rhythm, normal S1 and S2, no gallops, no murmurs, no rubs ABDOMEN: Soft, nontender. No hepatosplenomegaly, normal bowel sounds, no guarding or rigidity. EXTREMITIES: No clubbing, no edema, no cyanosis, 2+ pulses and upper and lower extremities. MUSCULOSKELETAL: Muscle strength and tone normal. SPINE: No scoliosis or deformity SKIN: No rashes CENTRAL NERVOUS SYSTEM: Alert and oriented -3. No focal deficits, tone is normal in all 4 extremities. PSYCHIATRIC: Alert and oriented -3. Appropriate affect. Intact judgment and insight. - Labs CBC & Chem 7: 07/15/18 06:20 07/16/18 05:45 Labs: Abnormal Lab Results - Last 24 Hours (Table) 07/16/18 Range/Units 05:45 Sodium 136 L (137-145) mmol/L Chloride 87 L (98-107) mmol/L Carbon Dioxide 43 H* (22-30) mmol/L Glucose 106 H (74-99) mg/dL Assessment and Plan Plan: Assessment: #1. Acute exacerbation of chronic diastolic heart failure, likely triggered by atrial fibrillation with RVR #2. Persistent atrial fibrillation, on chronic anticoagulation with Eliquis #3. History of COPD #4. Hypertension #5. DJD #6. History of dual-chamber permanent pacemaker insertion for history of sinus pause Plan: Continue the Symbicort, no wheezing or rhonchi on today's exam, continue weaning FiO2, patient is currently down to 2 L. Vital signs are stable, A. fib was controlled, diuretics per cardiology. I performed a history & physical examination of the patient and discussed their management with my nurse practitioner, Kenna Ervin. I reviewed the nurse practitioner's note and agree with the documented findings and plan of care. Lung sounds are positive for diminished breath sounds, with a few end expiratory wheezes. The findings and the impression was discussed with the patient. I attest to the documentation by the nurse practitioner. Time with Patient: Less than 30
--- NOTE | 2018-07-16 12:10 | P.PN ---
Subjective This is a pleasant 87-year-old female admitted to the hospital with combination of chronic diastolic heart failure and COPD exacerbation. She also has atrial fibrillation with poorly controlled ventricular rate. She is seen and examined sitting up in chair in no acute distress. She denies symptoms of chest pain, worsening shortness of breath, dizziness or palpitations. Currently maintained on Lasix IV 40 mg 3 times a day, Lopressor 75 mg 3 times a day, losartan 25 mg daily, Imdur 15 mg daily, diltiazem 360 mg daily, Lanoxin 250 g daily, aspirin 81 mg daily and Eliquis 2.5 mg twice a day. Blood pressure 127/75 heart rate has been in the 80s all night this morning was 125 prior to medication administration. Laboratory data reviewed, sodium 136, potassium 4.1, creatinine 0.8, CO2 43. GENERAL: Well-appearing, well-nourished and in no acute distress. NECK: Supple without JVD or thyromegaly. LUNGS: Clear to auscultation bilaterally, respirations equal and unlabored. No rhonchi, wheezes or rales. HEART: Irregular rate and rhythm without murmurs, rubs or gallops. S1 and S2 heard. EXTREMITIES: Normal range of motion, no edema, DANIE hose in place. No clubbing or cyanosis. Peripheral pulses intact. ASSESSMENT Acute on chronic diastolic heart failure Chronic persistent atrial fibrillation on long-term anticoagulation with poor ventricular response Acute exacerbation of chronic COPD. PLAN Transition to oral diuretics Lasix 40 mg by mouth twice a day. Continue current regimen for heart rate control. May be able to be discharged in the next 24 hours. The above impression and plan of care have been discussed and directed by the signing physician. Aubrie Camacho, nurse practitioner, acting as scribe for signing physician. Objective - Vital Signs Vital signs: Vital Signs Temp 98.0 F 07/16/18 07:59 Pulse 125 H 07/16/18 07:59 Resp 18 07/16/18 07:59 BP 127/75 07/16/18 07:59 Pulse Ox 92 L 07/16/18 07:59 Intake & Output 07/15/18 07/16/18 07/16/18 18:59 06:59 18:59 Intake Total 720 240 Output Total 2900 Balance 720 -2900 240 Weight 83.2 kg Intake: Oral 720 240 Output: Urine 2900 Other: Voiding Method Toilet # Voids 3 2 # Bowel Movements 1 - Labs CBC & Chem 7: 07/15/18 06:20 07/16/18 05:45 Labs: Abnormal Lab Results - Last 24 Hours (Table) 07/16/18 Range/Units 05:45 Sodium 136 L (137-145) mmol/L Chloride 87 L (98-107) mmol/L Carbon Dioxide 43 H* (22-30) mmol/L Glucose 106 H (74-99) mg/dL
[2018-07-16] MEDS: POTASSIUM CHLORIDE ER 10 MEQ TAB.ER.PRT PO SCH (15:26)
[2018-07-16] MEDS: FUROSEMIDE 40 MG TAB PO SCH (15:26)
[2018-07-16] MEDS: LOSARTAN 25 MG TAB PO SCH (21:14)
[2018-07-16] MEDS: MELATONIN 3 MG TABLET PO SCH (21:14)
[2018-07-17] MEDS: SYMBICORT 160-4.5 MCG INHALER INHALATION SCH (07:32)
[2018-07-17] MEDS: CALCIUM CARBONATE 500 MG CHEWABLE PO SCH (08:25)
[2018-07-17] MEDS: ASPIRIN 81 MG PO SCH (08:25)
[2018-07-17] MEDS: APIXABAN 2.5 MG TABLET PO SCH ×2 (08:25→21:03)
[2018-07-17] MEDS: ISOSORBIDE MONONITRATE ER 15 MG TAB PO SCH (08:25)
[2018-07-17] MEDS: acetaZOLAMIDE 250 MG TAB PO SCH (08:25)
[2018-07-17] MEDS: FUROSEMIDE 40 MG TAB PO SCH ×2 (08:25→15:45)
[2018-07-17] MEDS: DIGOXIN 250 MCG TAB PO SCH (08:25)
[2018-07-17] MEDS: FAMOTIDINE 20 MG TAB PO SCH (08:25)
[2018-07-17] MEDS: DILTIAZEM CD 180 MG CAP.ER.24H PO SCH (08:25)
[2018-07-17] MEDS: METOPROLOL TARTRATE 25 MG TAB PO SCH ×3 (08:27→21:03)
--- NOTE | 2018-07-17 10:33 | P.PN ---
Subjective Progress Note Date: 07/17/18 This is an 87-year-old female patient of Dr. Gutiérrez and Dr. 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 Patient had a recent hospitalization June 18 through the which time she was treated for acute hypoxic respiratory failure secondary to COPD, acute on chronic diastolic heart failure with episodes of A. fib with RVR. Patient was discharged home with homecare. Patient presented to [facility] emergency center with symptoms of moderate to severe shortness of breath, positive PND and orthopnea. Positive peripheral edema. EKG on admission here showed atrial fibrillation with a rapid ventricular response. She did have an echocardiogram with Doppler study performed in June which revealed an ejection fraction of 60-65% Patient is responding to IV Lasix, she states that she doesn't go to the bathroom often but when she goes she is putting out significant amounts of urine. Overall she does state that her breathing feels much better today, she still continues to have at least one plus bilateral peripheral edema. Blood pressure 95/60 with a heart rate of 90 this morning, 94% on 2 L of oxygen. Sodium 138, potassium 3.6, BUN 34, creatinine 1.1. Her BNP level on admission was 9120. The patient continues to be on IV Lasix 40 mg twice a day. 07/13/2018 Patient seen and examined this morning, continues to feel better. She does state that she continues to put out good amounts of urine each time she goes. Sodium 135, potassium 4.4, BUN 31, creatinine 0.9. Blood pressure this morning 130/70, heart rate 80s to 90s, 94% on 2 L of oxygen. 07/17/2018 Patient is sitting up in the chair at bedside this morning, overall feeling significantly better. Continues to have mild wheezing, denies any shortness of breath, but states when she exerts herself minimally she does get some difficulty in breathing. Overall since admission she is feeling significantly better. The patient is currently on oral diuretics. Blood pressure this morning 130/70 with a heart rate in the 70s, 94% on 2 L of oxygen. Sodium 136, potassium 4.1, BUN 15, creatinine 0.8. Objective - Vital Signs Vital signs: Vital Signs Temp 97.9 F 07/17/18 07:24 Pulse 70 07/17/18 07:24 Resp 20 07/17/18 07:24 BP 136/79 07/17/18 07:24 Pulse Ox 94 L 07/17/18 07:24 Intake & Output 07/16/18 07/17/18 07/17/18 18:59 06:59 18:59 Intake Total 720 420 Output Total 800 Balance 720 -800 420 Weight 84 kg Intake: Oral 720 420 Output: Urine 800 Other: Voiding Method Toilet # Voids 3 2 - Exam PHYSICAL EXAMINATION: GENERAL: This is an 87-year-old female in no acute distress at the time of my examination HEENT: Head is atraumatic, normocephalic. Pupils equal, round. Sclera anicteric. Conjunctiva are clear. Mucous membranes of the mouth are moist. Neck is supple. There is no elevated jugular venous pressure. No carotid bruit is heard. HEART EXAMINATION: Heart S1 and S2 irregularly irregular soft systolic murmur is heard CHEST EXAMINATION:lungs clear with fine wheezing heard on expiration. ABDOMEN: Soft, nontender. Bowel sounds are heard. No organomegaly noted. EXTREMITIES: 2+ peripheral pulses with trace evidence of peripheral edema and no calf tenderness noted. She does have ulcerated areas noted on bilateral legs NEUROLOGIC patient is awake, alert and oriented 3 . . - Labs CBC & Chem 7: 07/15/18 06:20 07/16/18 05:45 Assessment and Plan Plan: Assessment and plan #1 diastolic congestive heart failure acute on chronic, possibly exacerbated by A. fib with RVR. Diuresing on IV Lasix. Patient did have an echocardiogram performed in June which revealed a normal left ventricular systolic function. #2 COPD #3 paroxysmal atrial fibrillation #4 hypertension Plan From cardiology's perspective, the patient's heart rate today is under much better control, she is currently on oral diuretics. From our perspective she may be able to be discharged once cleared by primary. We'll make her a follow- up appointment in the office post discharge. DNP note has been reviewed, I agree with a documented findings and plan of care. Patient was seen and examined.
[2018-07-17] MEDS ORDERED: RX INFO: IV CONTRAST WAS GIVEN 1 EACH MISC MISCELLANE PRN (12:38)
--- NOTE | 2018-07-17 14:38 | P.PN ---
Subjective Progress Note Date: 07/17/18 On today's evaluation of 07/17/2018, the patient is resting comfortably in bed. No significant complaints. A computed tomography scan of the chest was done without contrast and the CAT scan showed emphysema. No other abnormalities noted. The patient remains in atrial fibrillation. The rate is controlled for now. She is on anticoagulation with Eliquis. She is also on oral Lasix 40 mg by mouth daily. In regards to her COPD, the patient is on Symbicort. Less bronchospastic and less wheezy compared to yesterday. Limited edema in lower extremities. She was given Diamox regarding some degree of metabolic alkalosis that is developed due to diuresis. No nausea. No vomiting. No altered mentation. No other significant events overnight. Objective - Vital Signs Vital signs: Vital Signs Temp 97.5 F L 07/17/18 11:43 Pulse 93 07/17/18 11:43 Resp 18 07/17/18 11:43 BP 108/66 07/17/18 11:43 Pulse Ox 98 07/17/18 11:43 Intake & Output 07/16/18 07/17/18 07/17/18 18:59 06:59 18:59 Intake Total 720 1140 Output Total 800 Balance 720 -800 1140 Weight 84 kg Intake: Oral 720 1140 Output: Urine 800 Other: Voiding Method Toilet # Voids 3 2 2 - Exam GENERAL EXAM: Alert, pleasant, 87-year-old white female comfortable in no apparent distress. HEAD: Normocephalic/atraumatic. EYES: Normal reaction of pupils, equal size. Conjunctiva pink, sclera white. NOSE: Clear with pink turbinates. THROAT: No erythema or exudates. NECK: No masses, no JVD, no thyroid enlargement, no adenopathy. CHEST: No chest wall deformity. Symmetrical expansion. LUNGS: Equal air entry with diminished breath sounds, with a few end expiratory wheezes CVS: Regular rate and rhythm, normal S1 and S2, no gallops, no murmurs, no rubs ABDOMEN: Soft, nontender. No hepatosplenomegaly, normal bowel sounds, no guarding or rigidity. EXTREMITIES: No clubbing, no edema, no cyanosis, 2+ pulses and upper and lower extremities. MUSCULOSKELETAL: Muscle strength and tone normal. SPINE: No scoliosis or deformity SKIN: No rashes CENTRAL NERVOUS SYSTEM: Alert and oriented -3. No focal deficits, tone is normal in all 4 extremities. PSYCHIATRIC: Alert and oriented -3. Appropriate affect. Intact judgment and insight. - Labs CBC & Chem 7: 07/15/18 06:20 07/16/18 05:45 Assessment and Plan Plan: #1. Acute exacerbation of chronic diastolic heart failure, likely triggered by atrial fibrillation with RVR, currently inactive in stable and the patient's heart rate is under better control and CHF is well optimized. CAT scan of the chest without contrast shows COPD without evidence of pneumonia. Some limited amount of scarring bilaterally. The predominant pathology COPD. #2. Chronic atrial fibrillation, on chronic anticoagulation with Eliquis #3. COPD, maintained on Symbicort on outpatient basis #4. Hypertension #5. DJD #6. History of dual-chamber permanent pacemaker insertion for history of sinus pause Plan Reviewed the CAT scan of the chest. Continue Symbicort as maintenance on outpatient basis. Ventolin rescue inhaler necessary basis. Rate control with digoxin and Cardizem and metoprolol regarding the chronic A. fib. Long-term and to coagulation with Eliquis. Discharge from medicine.
--- NOTE | 2018-07-17 14:38 | P.PN ---
Subjective Progress Note Date: 07/17/18 This is an 87-year-old female patient of Dr. Gutiérrez and Dr. 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 Patient had a recent hospitalization June 18 through the which time she was treated for acute hypoxic respiratory failure secondary to COPD, acute on chronic diastolic heart failure with episodes of A. fib with RVR. Patient was discharged home with homecare. Patient presented to [facility] emergency center today due to severe shortness of breath that started last night and progressively worsened during the night. She denies any fever or chills. She denies significant lower extremity edema. She just returned from [place] 2 days prior. She denies any runny no stuffy nose, sore throat, body aches. EKG was a atrial fibrillation at [address]-T wave changes. White count 9.5, hemoglobin 12.7, platelet count 128, BUN 23 and creatinine 1.03, CO2 35, sodium 138, potassium 4.0, chloride 99, blood sugar 152. Total bilirubin 1.8, ALT 58. Troponin negative. ProBNP 9120. Chest x-ray reveals correlate for heart failure exacerbation as there is cardiomegaly with tiny bilateral pleural effusions and mild interstitial edema. Additional patchy posterior left basilar atelectasis and/or infiltrate. Patient was started on DuoNeb treatments , Cardizem drip, IV Lasix at 40 mg every 12 hours and resumed on home medications and admitted to the cardiac stepdown unit. Consults were requested with cardiology and pulmonary medicine. 07/11: Patient states that she is not diuresing very much. She does state that her breathing is much improved from yesterday. Her weight is down 0.2 kg from yesterday. She has been afebrile, pressure 105/65, pulse ox 93% on 2 L nasal cannula. Patient is not O2 dependent. 07/12: Patient remains on Cardizem drip. She has been resumed on her home dose of Lopressor which is 75 mg 3 times daily. Discuss with cardiology now K to just continue Cardizem drip and resume her Cardizem CD 300 mg daily. Blood pressures noted in the lower side. Heart rate is running in the 90s and low 100s. She is currently on Lasix 40 mg IV every 12 hours. Patient states her breathing and lower extremity edema is improved. She has met with the dietitian and has been provided information regarding her diet and understands that she needs to avoid salt. Anticipate probable discharge in the next 24 hours. PT consult will be requested. Patient is planning to return home with VNA. 07/13: Patient states her breathing is awful today. She has increased shortness of breath with ambulating just to the bathroom. In general she states her breathing is improved since she arrived. Heart rate is at 117. She is on oral Cardizem and metoprolol. Sodium 135, potassium 4.4, BUN 31 creatinine 0.9. Cardiology is recommending to continue IV Lasix today and plan for oral tomorrow. Documented weight is up from yesterday. Question whether this is accurate. Patient has a documented pulse ox of 88% with ambulation without oxygen today. We will plan to reevaluate tomorrow for home oxygen need. Case management is following. 07/14: Patient states that her breathing is better from yesterday but is not back to baseline. She still has some lower extremity edema. She states she was up all night every hour. Weight is up by 0.4 kg from yesterday. We will plan to increase Lasix frequency to every 8 hours, Lasix 40 mg IV. BUN 31 and creatinine 0.9. Sodium 135, potassium 4.4, chloride 100, CO2 32. We'll plan to continue IV Lasix and monitor over the weekend. 07/15: Patient states that she is feeling much better today in general and her breathing is better today from yesterday. She denies having any chest pain. She states she has some lightheadedness after she takes all of her morning medication but she knows to get up slowly. Documented heart rate is running in the low 100s but on exam heart rate is running in the 80s. Cardiology has increased her Cardizem CD to 360 mg daily and added and digoxin 250 g daily. Lasix is currently at 40 mg every 8 hours IV push. Pulse ox is 97% on 2 L nasal cannula. Sodium 135, BUN 20 creatinine 0.78. 07/16: Patient's heart rate has been running mostly in the 70s and 80s and increasing with activity. Pulse ox is 92% to 94% on 2 L nasal cannula. CO2 43 , sodium 136, potassium 4.1, chloride 87. She is on Lasix 40 mg IV every 8 hours and has been switched to 40 mg twice daily orally by cardiology and we will add and Diamox 250 mg daily. She states she slept well last night but did have an episode in the night of severe shortness of breath. 07/17: Patient complains of feeling very tired today. She states she is unable to stay awake. Breathing is about the same from yesterday. Heart rate is running in the 70s, pulse ox 94% on 2 L nasal cannula. Diamox was added yesterday. Reviewed everything with the patient's daughter and the following have been added: Perforomist, Symbicort changed to Pulmicort twice daily, high resolution CAT scan, IgG, alpha-1 antitrypsin, angiotensin I converting enzyme ordered Review of Systems Constitutional: Reports fatigue, Reports weakness, Denies chills, Denies fever, Denies poor appetite Eyes: denies blurred vision, denies pain Ears, nose, mouth and throat: Denies headache, Denies nasal congestion, Denies nasal discharge, Denies sinus pain, Denies sinus pressure, Denies sore throat, Denies vertigo Cardiovascular: Reports decreased exercise tolerance, Reports dyspnea on exertion, denies syncope, Denies chest pain, Denies edema, Denies high blood pressure, Denies leg edema, Denies lightheadedness, Denies palpitations, reports shortness of breath-improving Respiratory: Reports cough, Reports cough with sputum, Reports dyspnea-improving , Denies excessive sputum, Denies hemoptysis, Denies home oxygen, Denies wheezing Gastrointestinal: Denies abdominal pain, Denies diarrhea, Denies loss of appetite, Denies melena, Denies nausea, Denies vomiting Genitourinary: Denies dysuria, Denies hematuria, Denies urgency, Denies urinary frequency Musculoskeletal: Reports muscle weakness, Denies frequent falls, Denies gait dysfunction, Denies myalgias Integumentary: Reports wounds, Denies pruritus, Denies rash Neurological: Denies aphasia, Denies change in mentation, Denies confusion, Denies gait dysfunction, Denies head injury, Denies headaches, Denies numbness, Denies seizures, Denies weakness Psychiatric: Denies anxiety, Denies depression, reports daytime sleepiness Endocrine: Denies fatigue, Denies weight change Objective - Vital Signs Vital signs: Vital Signs Temp 97.5 F L 07/17/18 11:43 Pulse 93 07/17/18 11:43 Resp 18 07/17/18 11:43 BP 108/66 07/17/18 11:43 Pulse Ox 98 07/17/18 11:43 Intake & Output 07/16/18 07/17/18 07/17/18 18:59 06:59 18:59 Intake Total 720 1140 Output Total 800 Balance 720 -800 1140 Weight 84 kg Intake: Oral 720 1140 Output: Urine 800 Other: Voiding Method Toilet # Voids 3 2 2 - Exam Gen: This is an 87-year-old female. Patient is sitting in recliner and appears to be tired. HEENT: Head is atraumatic, normocephalic. Pupils equal, round. Sclerae is anicteric. NECK: Supple. No JVD. No lymphadenopathy. No thyromegaly. LUNGS: Bilateral mild expiratory wheeze. No rhonchi. No intercostal retractions. HEART: Regular rate and rhythm. No murmur. ABDOMEN: Soft. Bowel sounds are present. No masses. No tenderness. EXTREMITIES: Trace-1+ bilateral pedal edema. No calf tenderness. Weeping noted from wounds on the lower extremities bilaterally. NEUROLOGICAL: Patient is awake, alert and oriented x3. Cranial nerves 2 through 12 are grossly intact. - Labs CBC & Chem 7: 07/15/18 06:20 07/16/18 05:45 Assessment and Plan Plan: 1. Dyspnea secondary to moderately severe COPD, acute on chronic diastolic heart failure and possibly related to episodes of A. fib with RVR. Component of coronary artery disease not ruled out. Patient was started on Cardizem drip. Cardizem drip discontinued and Cardizem CD increased 360 mg resumed as well as Lopressor 75 mg 3 times daily. Continue DuoNeb treatments, Symbicort twice daily, Lasix IV changed to 40 mg twice daily orally. Diamox added. Cardiology consult and pulmonary medicine consult. 2. COPD. Continue DuoNeb treatments every 4 hours, Symbicort changed to Pulmicort, and perform her last, high-resolution CAT scan of the chest, IgG, alpha-1 antitrypsin, angiotensin I converting enzyme ordered 3. Acute on chronic diastolic heart failure. Cardiology consult is appreciated. Continue po Lasix, I&O and daily weights. Monitor electrolytes and renal function. 4. Paroxysmal atrial fibrillation. Discontinue Cardizem drip and resume Cardizem CD increased to 360 mg daily, added digoxin, continue eliquis 2.5 mg twice daily, Lopressor 75 mg 3 times daily. 5. Hypertension. Continue losartan 25 mg daily, Lopressor, Cardizem, Imdur. 6. DVT prophylaxis. Eliquis. 7. GI prophylaxis. Pepcid. 8. Abrasions and edema to the lower extremities with weeping of serous material. Therahoney daily. Discharge plan: home with VNA or subacute rehab. Impression and plan of care have been directed as dictated by the signing physician. Noelle Gilbert nurse practitioner acting as scribe for signing physician.
[2018-07-17] MEDS: POTASSIUM CHLORIDE ER 10 MEQ TAB.ER.PRT PO SCH (15:45)
--- NOTE | 2018-07-17 15:58 | CT ---
EXAMINATION TYPE: CT chest wo con DATE OF EXAM: 07/17/2018 COMPARISON: 11/15/2011 HISTORY: 87-year-old female High resolution, trouble breathing TECHNIQUE: High-resolution CT scanning of the chest without contrast. 1 mm slice thickness with 1 cm gap or HRCT protocol. Patient was unable to lay prone for prone imaging. CT DLP: 278.2 mGycm Automated exposure control for dose reduction was used. FINDINGS: Heart upper limits of normal in size without pericardial effusion. Extensive coronary vessel calcific ations are present. Aortic valvular calcifications are also present. Ectatic ascending aorta 3.7 cm. Mild to moderate atherosclerotic arch calcifications with conventional arch vessel branching anatomy. Left anterior chest wall pacemaker generator with right atrial and right ventricular leads. Tracheal flattening is noted to nearly a slitlike configuration. Small hiatal hernia. Visualized upper abdomen shows no gross anomaly. Bronchial wall thickening is present with some chronic consolidation and volume loss in the inferior lingula which was seen back in 2011 as well. Additional strandy scarring in the basilar right middle lobe. 3 motion artifacts and HRCT technique limits assessment for pulmonary emboli. No dominant bronc hiectasis. No new consolidation or pleural effusion. Bones: No osseous destructive process seen. IMPRESSION: 1. CAD. 2. 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 BRONCHIAL WALL THICKENING COULD REPRESENT A PROMINENT COMPONENT OF CHRONIC BRONCHITIS OR SUPERIMPOSED ACUTE BRONCHITIS. 3. TRACHEAL FLATTENING. POSSIBLE TRACHEOMALACIA. CLINICALLY CORRELATE. 4. CHRONIC VOLUME LOSS AND CONSOLIDATION IN THE INFERIOR LINGULA AND CHRONIC SCARRING IN THE BASILAR RIGHT MIDDLE LOBE. FINDINGS UNCHANGED FROM 2012, POSSIBLE CHRONIC SEQUELA OF INDOLENT OR PAST PANTERA INF ECTION. 5. NO DEFINITE ACUTE PROCESS SEEN. 6. SMALL HIATAL HERNIA.
[2018-07-17] MEDS: FORMOTEROL FUMARATE 20 MCG/2 ML NEBU INHALATION SCH (19:30)
[2018-07-17] MEDS: BUDESONIDE 1 MG/2 ML NEBU INHALATION SCH (19:30)
[2018-07-17] MEDS: LOSARTAN 25 MG TAB PO SCH (21:03)
[2018-07-17] MEDS: MELATONIN 3 MG TABLET PO SCH (21:04)
[2018-07-18 00:45] LABS: ABG Base Excess 13.8 mmol/L; ABG HCO3 39 mmol/L (21-25); ABG PCO2 67 mmHg (35-45); ABG PH 7.34 (7.35-7.45); ABG PO2 74 mmHg (83-108); ABG TCO2 41 mmol/L (19-24)
[2018-07-18] MEDS ORDERED: FUROSEMIDE 10 MG/ML 10 ML VIAL IV STA (01:11)
[2018-07-18] MEDS ORDERED: IPRATROPIUM-ALBUTEROL 3 ML NEB INHALATION STA (01:15)
[2018-07-18] MEDS: IPRATROPIUM-ALBUTEROL 3 ML NEB INHALATION PRN ×3 (01:16→12:44)
[2018-07-18 06:17] LABS: HCT 33.8 % (34.0-46.0); HGB 11.1 gm/dL (11.4-16.0); Hypochromasia Slight; MCH 29.8 pg (25.0-35.0); MCHC 32.8 g/dL (31.0-37.0); MCV 90.9 fL (80.0-100.0); Mean Platelet Volume 6.6; Platelet Count 218 k/uL (150-450); Poikilocytosis Slight; RBC 3.72 m/uL (3.80-5.40); RDW 15.5 % (11.5-15.5)
[2018-07-18 06:29] LABS: Potassium 3.6 mmol/L (3.5-5.1)
[2018-07-18] MEDS: FORMOTEROL FUMARATE 20 MCG/2 ML NEBU INHALATION SCH ×2 (08:10→23:15)
[2018-07-18] MEDS: BUDESONIDE 1 MG/2 ML NEBU INHALATION SCH ×2 (08:10→23:15)
[2018-07-18] MEDS: CALCIUM CARBONATE 500 MG CHEWABLE PO SCH (08:59)
[2018-07-18] MEDS: ASPIRIN 81 MG PO SCH (08:59)
[2018-07-18] MEDS: ISOSORBIDE MONONITRATE ER 15 MG TAB PO SCH (08:59)
[2018-07-18] MEDS: FUROSEMIDE 40 MG TAB PO SCH ×2 (08:59→16:23)
[2018-07-18] MEDS: DILTIAZEM CD 180 MG CAP.ER.24H PO SCH (08:59)
[2018-07-18] MEDS: FAMOTIDINE 20 MG TAB PO SCH (08:59)
[2018-07-18] MEDS: DIGOXIN 250 MCG TAB PO SCH (09:00)
[2018-07-18] MEDS: APIXABAN 2.5 MG TABLET PO SCH ×2 (09:00→22:17)
[2018-07-18] MEDS: METOPROLOL TARTRATE 25 MG TAB PO SCH ×3 (09:00→22:17)
[2018-07-18] MEDS: acetaZOLAMIDE 250 MG TAB PO SCH (09:00)
[2018-07-18 10:16] VITALS: BMI 30.2
--- NOTE | 2018-07-18 10:41 | P.PN ---
Subjective Progress Note Date: 07/18/18 This is an 87-year-old female patient of Dr. Gutiérrez and Dr. 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 Patient had a recent hospitalization June 18 through the which time she was treated for acute hypoxic respiratory failure secondary to COPD, acute on chronic diastolic heart failure with episodes of A. fib with RVR. Patient was discharged home with homecare. Patient presented to [facility] emergency center with symptoms of moderate to severe shortness of breath, positive PND and orthopnea. Positive peripheral edema. EKG on admission here showed atrial fibrillation with a rapid ventricular response. She did have an echocardiogram with Doppler study performed in June which revealed an ejection fraction of 60-65% Patient is responding to IV Lasix, she states that she doesn't go to the bathroom often but when she goes she is putting out significant amounts of urine. Overall she does state that her breathing feels much better today, she still continues to have at least one plus bilateral peripheral edema. Blood pressure 95/60 with a heart rate of 90 this morning, 94% on 2 L of oxygen. Sodium 138, potassium 3.6, BUN 34, creatinine 1.1. Her BNP level on admission was 9120. The patient continues to be on IV Lasix 40 mg twice a day. 07/13/2018 Patient seen and examined this morning, continues to feel better. She does state that she continues to put out good amounts of urine each time she goes. Sodium 135, potassium 4.4, BUN 31, creatinine 0.9. Blood pressure this morning 130/70, heart rate 80s to 90s, 94% on 2 L of oxygen. 07/17/2018 Patient is sitting up in the chair at bedside this morning, overall feeling significantly better. Continues to have mild wheezing, denies any shortness of breath, but states when she exerts herself minimally she does get some difficulty in breathing. Overall since admission she is feeling significantly better. The patient is currently on oral diuretics. Blood pressure this morning 130/70 with a heart rate in the 70s, 94% on 2 L of oxygen. Sodium 136, potassium 4.1, BUN 15, creatinine 0.8. 07/18/2018 Patient was seen and examined this morning, sitting up in her chair at bedside, through the night last night, she states that she walked to the bathroom and upon arriving back to her chair she was extremely short of breath, her oxygen saturation dropped to 83% at that time. At the time of my examination this morning her breathing is much more stable, she still has scattered fine wheezing throughout, similar to yesterday. Her blood pressure this morning is 107/60 with a heart rate in the 80s. She is satting 95% on 3 L of oxygen this morning. Objective - Vital Signs Vital signs: Vital Signs Temp 97.7 F 07/18/18 07:48 Pulse 78 07/18/18 08:39 Resp 20 07/18/18 07:48 BP 107/67 07/18/18 07:48 Pulse Ox 95 07/18/18 07:48 Intake & Output 07/17/18 07/18/18 07/18/18 18:59 06:59 18:59 Intake Total 1260 240 Output Total 1250 Balance 1260 -1250 240 Weight 82.5 kg 82.5 kg Intake: Oral 1260 240 Output: Urine 1250 Other: Voiding Method Toilet # Voids 2 1 - Exam PHYSICAL EXAMINATION: GENERAL: This is an 87-year-old female in no acute distress at the time of my examination HEENT: Head is atraumatic, normocephalic. Pupils equal, round. Sclera anicteric. Conjunctiva are clear. Mucous membranes of the mouth are moist. Neck is supple. There is no elevated jugular venous pressure. No carotid bruit is heard. HEART EXAMINATION: Heart S1 and S2 irregularly irregular soft systolic murmur is heard CHEST EXAMINATION:lungs clear with fine wheezing heard on expiration. ABDOMEN: Soft, nontender. Bowel sounds are heard. No organomegaly noted. EXTREMITIES: 2+ peripheral pulses with trace evidence of peripheral edema and no calf tenderness noted. She does have ulcerated areas noted on bilateral legs NEUROLOGIC patient is awake, alert and oriented 3 . . - Labs CBC & Chem 7: 07/18/18 05:35 07/18/18 05:35 Labs: Abnormal Lab Results - Last 24 Hours (Table) 07/18/18 07/18/18 07/18/18 Range/Units 00:32 05:35 05:35 RBC 3.72 L (3.80-5.40) m/uL Hgb 11.1 L (11.4-16.0) gm/dL Hct 33.8 L (34.0-46.0) % ABG pH 7.34 L (7.35-7.45) ABG pCO2 67 H (35-45) mmHg ABG pO2 74 L (83-108) mmHg ABG HCO3 39 H (21-25) mmol/L ABG Total CO2 41 H (19-24) mmol/L Sodium 133 L (137-145) mmol/L Chloride 89 L (98-107) mmol/L Carbon Dioxide 39 H (22-30) mmol/L Glucose 101 H (74-99) mg/dL Assessment and Plan Plan: Assessment and plan #1 diastolic congestive heart failure acute on chronic, possibly exacerbated by A. fib with RVR. Diuresing on IV Lasix. Patient did have an echocardiogram performed in June which revealed a normal left ventricular systolic function. #2 COPD #3 paroxysmal atrial fibrillation #4 hypertension Plan From cardiology's perspective, the patient's heart rate today is under much better control, she is currently on oral diuretics. From our perspective she may be able to be discharged once cleared by primary. We'll make her a follow- up appointment in the office post discharge. DNP note has been reviewed, I agree with a documented findings and plan of care. Patient was seen and examined.
--- NOTE | 2018-07-18 12:59 | P.PN ---
Subjective Progress Note Date: 07/18/18 Principal diagnosis: Acute exacerbation of chronic diastolic heart failure related to A. fib RVR This is a 87-year-old white female patient past medical history of chronic congestive heart failure, chronic atrial fibrillation, COPD who came into the hospital on 07/10/2018 with complaints of increasing shortness of breath, weight gain, orthopnea, and exertional dyspnea. She states her lower extremities have been increasingly more swollen. She denied any cough, denied any phlegm production, no chest pain, no fever or chills, nausea, vomiting or diarrhea. Chest x-ray on admission showed renomegaly, make emphysematous changes, with left basilar opacity posteriorly, tiny bilateral pleural effusions and fluid in the major fissure, mild interstitial edema. ProBNP was 9120, troponins were negative 3. KG showed persistent atrial fibrillation, with rapid ventricular response, with a rate of 117 BPM. Last echocardiogram from June showed an ejection fraction of 60-65%. Patient has been seen by cardiology, she is being diuresed. Responding well to Lasix. Reading easier today. Currently on 2 L per nasal cannula pulse ox is 96%, hemodynamically stable, afebrile, lung sounds are diminished air entry bilaterally, with fine expiratory wheezing. Patient is on IV Lasix, Symbicort. She is on Eliquis for anticoagulation. She remains in A. fib, but her rate is better controlled, she does have a permanent pacemaker in place for history of heart block. On 07/16/2018 patient seen in follow-up on selective care unit, she is sitting up in the chair, in no acute distress, lung sounds reveal minimal rales at the left lower base, she remains in A. fib, and the rate is currently controlled, at 68-72 BPM. Currently on 2 L per nasal cannula pulse ox is 92%, at times seems a heart rate does go up over 100 probably with activity. Afebrile, today' s labs have been reviewed, shows sodium of 136, potassium is 4.1, chloride is 87 , CO2 is 43, BUN is 15 and creatinine 0.80. She is on Eliquis for anticoagulation, she is on oral Cardizem, oral Lasix at 40 mg twice daily, Imdur , and Lopressor at 75 mg 3 times a day. She is on Symbicort. Lung sounds are negative for any wheezing or rhonchi. On 07/18/2018 she seen in follow-up on selective care unit, less than patient expressed episode of respiratory distress, patient was getting up to the bathroom became very short of breath, struggled to recover and to catch her breath, her SpO2 was down to 83% on 2 L per nasal cannula. Patient was quite wheezy, and diminished, and decrease air entry, she was given IV Lasix, she diuresed through the night, she was given 2 breathing treatments [id number]. Blood gases were obtained, and it showed pO2 of 74, pCO2 of 67, and pH of 7.34, consistent with acute on chronic hypercapnic and hypoxemic respiratory failure. Patient did improve with interventions, this morning she seen sitting up in the chair, in no acute distress, is still dyspneic with exertion, even walking to the bathroom, currently on 3 L per nasal cannula pulse ox is 96%, no fever or chills, lung sounds are positive for better air entry bilaterally, no wheezing on today's exam, some bibasilar crackles. She remains in A. fib, with a controlled rate, is on oral anticoagulation, she is on oral Lasix, she is been diuresing, lower extremity edema is improving Objective - Vital Signs Vital signs: Vital Signs Temp 98.0 F 07/18/18 11:28 Pulse 70 07/18/18 12:44 Resp 18 07/18/18 11:28 BP 124/66 07/18/18 11:28 Pulse Ox 96 07/18/18 11:28 Intake & Output 07/17/18 07/18/18 07/18/18 18:59 06:59 18:59 Intake Total 1260 240 Output Total 1250 Balance 1260 -1250 240 Weight 82.5 kg 82.5 kg Intake: Oral 1260 240 Output: Urine 1250 Other: Voiding Method Toilet # Voids 2 1 - Exam GENERAL EXAM: Alert, pleasant, 87-year-old white female comfortable in no apparent distress. HEAD: Normocephalic/atraumatic. EYES: Normal reaction of pupils, equal size. Conjunctiva pink, sclera white. NOSE: Clear with pink turbinates. THROAT: No erythema or exudates. NECK: No masses, no JVD, no thyroid enlargement, no adenopathy. CHEST: No chest wall deformity. Symmetrical expansion. LUNGS: Equal air entry with diminished breath sounds, bibasilar crackles CVS: Regular rate and rhythm, normal S1 and S2, no gallops, no murmurs, no rubs ABDOMEN: Soft, nontender. No hepatosplenomegaly, normal bowel sounds, no guarding or rigidity. EXTREMITIES: No clubbing, no edema, no cyanosis, 2+ pulses and upper and lower extremities. MUSCULOSKELETAL: Muscle strength and tone normal. SPINE: No scoliosis or deformity SKIN: No rashes CENTRAL NERVOUS SYSTEM: Alert and oriented -3. No focal deficits, tone is normal in all 4 extremities. PSYCHIATRIC: Alert and oriented -3. Appropriate affect. Intact judgment and insight. - Labs CBC & Chem 7: 07/18/18 05:35 07/18/18 05:35 Labs: Abnormal Lab Results - Last 24 Hours (Table) 07/18/18 07/18/18 07/18/18 Range/Units 00:32 05:35 05:35 RBC 3.72 L (3.80-5.40) m/uL Hgb 11.1 L (11.4-16.0) gm/dL Hct 33.8 L (34.0-46.0) % ABG pH 7.34 L (7.35-7.45) ABG pCO2 67 H (35-45) mmHg ABG pO2 74 L (83-108) mmHg ABG HCO3 39 H (21-25) mmol/L ABG Total CO2 41 H (19-24) mmol/L Sodium 133 L (137-145) mmol/L Chloride 89 L (98-107) mmol/L Carbon Dioxide 39 H (22-30) mmol/L Glucose 101 H (74-99) mg/dL Assessment and Plan Plan: Assessment: #1. Acute hypoxemic respiratory failure related to acute exacerbation of COPD likely triggered by fluid overload #2. Acute exacerbation of chronic diastolic heart failure, likely triggered by atrial fibrillation with RVR #3. Persistent atrial fibrillation, on chronic anticoagulation with Eliquis #4. History of COPD #5. Hypertension #6. DJD #7. History of dual-chamber permanent pacemaker insertion for history of sinus pause Plan: Continue current medical treatment, oral diuretics, patient did require a dose of IV Lasix last night for an episode of respiratory distress likely related to COPD exacerbation and fluid overload, breathing better today, she continues to diurese, patient is back on her DuoNeb, her A. fib is controlled, obtain portable chest x-ray in the morning, continue to follow I performed a history & physical examination of the patient and discussed their management with my nurse practitioner, Kenna Ervin. I reviewed the nurse practitioner's note and agree with the documented findings and plan of care. Lung sounds are positive for diminished breath sounds, with a few end expiratory wheezes. The findings and the impression was discussed with the patient. I attest to the documentation by the nurse practitioner. Time with Patient: Less than 30
--- NOTE | 2018-07-18 14:11 | P.PN ---
Subjective Progress Note Date: 07/18/18 This is an 87-year-old female patient of Dr. Gutiérrez and Dr. 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 Patient had a recent hospitalization June 18 through the which time she was treated for acute hypoxic respiratory failure secondary to COPD, acute on chronic diastolic heart failure with episodes of A. fib with RVR. Patient was discharged home with homecare. Patient presented to [facility] emergency center today due to severe shortness of breath that started last night and progressively worsened during the night. She denies any fever or chills. She denies significant lower extremity edema. She just returned from [place] 2 days prior. She denies any runny no stuffy nose, sore throat, body aches. EKG was a atrial fibrillation at [address]-T wave changes. White count 9.5, hemoglobin 12.7, platelet count 128, BUN 23 and creatinine 1.03, CO2 35, sodium 138, potassium 4.0, chloride 99, blood sugar 152. Total bilirubin 1.8, ALT 58. Troponin negative. ProBNP 9120. Chest x-ray reveals correlate for heart failure exacerbation as there is cardiomegaly with tiny bilateral pleural effusions and mild interstitial edema. Additional patchy posterior left basilar atelectasis and/or infiltrate. Patient was started on DuoNeb treatments , Cardizem drip, IV Lasix at 40 mg every 12 hours and resumed on home medications and admitted to the cardiac stepdown unit. Consults were requested with cardiology and pulmonary medicine. 07/11: Patient states that she is not diuresing very much. She does state that her breathing is much improved from yesterday. Her weight is down 0.2 kg from yesterday. She has been afebrile, pressure 105/65, pulse ox 93% on 2 L nasal cannula. Patient is not O2 dependent. 07/12: Patient remains on Cardizem drip. She has been resumed on her home dose of Lopressor which is 75 mg 3 times daily. Discuss with cardiology now K to just continue Cardizem drip and resume her Cardizem CD 300 mg daily. Blood pressures noted in the lower side. Heart rate is running in the 90s and low 100s. She is currently on Lasix 40 mg IV every 12 hours. Patient states her breathing and lower extremity edema is improved. She has met with the dietitian and has been provided information regarding her diet and understands that she needs to avoid salt. Anticipate probable discharge in the next 24 hours. PT consult will be requested. Patient is planning to return home with [facility]. 07/13: Patient states her breathing is awful today. She has increased shortness of breath with ambulating just to the bathroom. In general she states her breathing is improved since she arrived. Heart rate is at 117. She is on oral Cardizem and metoprolol. Sodium 135, potassium 4.4, BUN 31 creatinine 0.9. Cardiology is recommending to continue IV Lasix today and plan for oral tomorrow. Documented weight is up from yesterday. Question whether this is accurate. Patient has a documented pulse ox of 88% with ambulation without oxygen today. We will plan to reevaluate tomorrow for home oxygen need. Case management is following. 07/14: Patient states that her breathing is better from yesterday but is not back to baseline. She still has some lower extremity edema. She states she was up all night every hour. Weight is up by 0.4 kg from yesterday. We will plan to increase Lasix frequency to every 8 hours, Lasix 40 mg IV. BUN 31 and creatinine 0.9. Sodium 135, potassium 4.4, chloride 100, CO2 32. We'll plan to continue IV Lasix and monitor over the weekend. 07/15: Patient states that she is feeling much better today in general and her breathing is better today from yesterday. She denies having any chest pain. She states she has some lightheadedness after she takes all of her morning medication but she knows to get up slowly. Documented heart rate is running in the low 100s but on exam heart rate is running in the 80s. Cardiology has increased her Cardizem CD to 360 mg daily and added and digoxin 250 g daily. Lasix is currently at 40 mg every 8 hours IV push. Pulse ox is 97% on 2 L nasal cannula. Sodium 135, BUN 20 creatinine 0.78. 07/16: Patient's heart rate has been running mostly in the 70s and 80s and increasing with activity. Pulse ox is 92% to 94% on 2 L nasal cannula. CO2 43 , sodium 136, potassium 4.1, chloride 87. She is on Lasix 40 mg IV every 8 hours and has been switched to 40 mg twice daily orally by cardiology and we will add and Diamox 250 mg daily. She states she slept well last night but did have an episode in the night of severe shortness of breath. 07/17: Patient complains of feeling very tired today. She states she is unable to stay awake. Breathing is about the same from yesterday. Heart rate is running in the 70s, pulse ox 94% on 2 L nasal cannula. Diamox was added yesterday. Reviewed everything with the patient's daughter and the following have been added: Perforomist, Symbicort changed to Pulmicort twice daily, high resolution CAT scan, IgG, alpha-1 antitrypsin, angiotensin I converting enzyme ordered 07/18: Pulse ox 95% on 3 L nasal cannula, heart rate running in the 70s and 80s, afebrile. White count is normal at 5, hemoglobin 11.1. ABGs were obtained at midnight which show a pH of 7.34, pCO2 67, PaO2 74, bicarb 39, total CO2 41, O2 saturation 96 on FiO2 of 32. Sodium 133, potassium 3.6, chloride 89, CO2 39. Patient remains in atrial fibrillation with rate controlled. Patient states that her breathing is much improved today after she was started on steroids and nebulizer treatments. CT of the chest showed CAD, COPD with at least mild emphysema. Bronchial wall thickening could represent prominent component of chronic bronchitis or superimposed acute bronchitis. Tracheal flattening. 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 Chronic volume loss and consolidation in the inferior lingula and chronic scarring in the basilar right middle lobe. Findings unchanged from 2012, possible chronic sequelae of indolent or past PANTERA infection. No definite acute process seen. Small hiatal hernia. Dr. Pascual has cleared the patient for discharge yesterday. Patient family are planning for discharge to [facility]. Patient is waiting for insurance authorization. We will plan for discharge tomorrow. Review of Systems Constitutional: Reports fatigue, Reports weakness, Denies chills, Denies fever Eyes: denies blurred vision, denies pain Ears, nose, mouth and throat: Denies headache, Denies nasal congestion, Denies nasal discharge, Denies sinus pain, Denies sinus pressure, Denies sore throat, Denies vertigo Cardiovascular: Reports decreased exercise tolerance, Reports dyspnea on exertion, denies syncope, Denies chest pain, Denies edema, Denies high blood pressure, Denies leg edema, Denies lightheadedness, Denies palpitations, reports shortness of breath-improving Respiratory: Reports cough, Reports cough with sputum, Reports dyspnea-improving , Denies excessive sputum, Denies hemoptysis, Denies home oxygen, Denies wheezing Gastrointestinal: Denies abdominal pain, Denies diarrhea, Denies loss of appetite, Denies melena, Denies nausea, Denies vomiting Genitourinary: Denies dysuria, Denies hematuria, Denies urgency, Denies urinary frequency Musculoskeletal: Reports muscle weakness, Denies frequent falls, Denies gait dysfunction, Denies myalgias Integumentary: Reports wounds, Denies pruritus, Denies rash Neurological: Denies aphasia, Denies change in mentation, Denies confusion, Denies gait dysfunction, Denies head injury, Denies headaches, Denies numbness, Denies seizures, Denies weakness Psychiatric: Denies anxiety, Denies depression, reports daytime sleepiness Endocrine: Denies fatigue, Denies weight change Objective - Vital Signs Vital signs: Vital Signs Temp 97.7 F 07/18/18 07:48 Pulse 78 07/18/18 08:39 Resp 20 07/18/18 07:48 BP 107/67 07/18/18 07:48 Pulse Ox 95 07/18/18 07:48 Intake & Output 07/17/18 07/18/18 07/18/18 18:59 06:59 18:59 Intake Total 1260 240 Output Total 1250 Balance 1260 -1250 240 Weight 82.5 kg Intake: Oral 1260 240 Output: Urine 1250 Other: Voiding Method Toilet # Voids 2 1 - Exam Gen: This is an 87-year-old female. Patient is sitting in recliner and appears to be in no acute distress. HEENT: Head is atraumatic, normocephalic. Pupils equal, round. Sclerae is anicteric. NECK: Supple. No JVD. No lymphadenopathy. No thyromegaly. LUNGS: Bilateral mild expiratory wheeze. No rhonchi. No intercostal retractions. HEART: Regular rate and rhythm. No murmur. ABDOMEN: Soft. Bowel sounds are present. No masses. No tenderness. EXTREMITIES: Trace-1+ bilateral pedal edema. No calf tenderness. Weeping noted from wounds on the lower extremities bilaterally. NEUROLOGICAL: Patient is awake, alert and oriented x3. Cranial nerves 2 through 12 are grossly intact. - Labs CBC & Chem 7: 07/18/18 05:35 07/18/18 05:35 Labs: Abnormal Lab Results - Last 24 Hours (Table) 07/18/18 07/18/18 07/18/18 Range/Units 00:32 05:35 05:35 RBC 3.72 L (3.80-5.40) m/uL Hgb 11.1 L (11.4-16.0) gm/dL Hct 33.8 L (34.0-46.0) % ABG pH 7.34 L (7.35-7.45) ABG pCO2 67 H (35-45) mmHg ABG pO2 74 L (83-108) mmHg ABG HCO3 39 H (21-25) mmol/L ABG Total CO2 41 H (19-24) mmol/L Sodium 133 L (137-145) mmol/L Chloride 89 L (98-107) mmol/L Carbon Dioxide 39 H (22-30) mmol/L Glucose 101 H (74-99) mg/dL Assessment and Plan Plan: 1. Dyspnea secondary to moderately severe COPD, acute on chronic diastolic heart failure and possibly related to episodes of A. fib with RVR. Component of coronary artery disease not ruled out. Patient was started on Cardizem drip. Cardizem drip discontinued and Cardizem CD increased 360 mg, Lopressor 75 mg 3 times daily. Continue DuoNeb treatments, Symbicort changed to Pulmicort , Lasix IV changed to 40 mg twice daily orally. Diamox added. Cardiology consult and pulmonary medicine consult. 2. COPD. Continue DuoNeb treatments every 4 hours, Symbicort changed to Pulmicort, and perform her last, high-resolution CAT scan of the chest, IgG, alpha-1 antitrypsin, angiotensin I converting enzyme ordered 3. Acute on chronic diastolic heart failure. Cardiology consult is appreciated. Continue po Lasix, I&O and daily weights. Monitor electrolytes and renal function. 4. Paroxysmal atrial fibrillation. Discontinue Cardizem drip and resume Cardizem CD increased to 360 mg daily, added digoxin, continue eliquis 2.5 mg twice daily, Lopressor 75 mg 3 times daily. 5. Hypertension. Continue losartan 25 mg daily, Lopressor, Cardizem, Imdur. 6. DVT prophylaxis. Eliquis. 7. GI prophylaxis. Pepcid. 8. Abrasions and edema to the lower extremities with weeping of serous material. Therahoney daily. Discharge plan: [place] on Tuesday. Impression and plan of care have been directed as dictated by the signing physician. Noelle Gilbert nurse practitioner acting as scribe for signing physician.
[2018-07-18] MEDS: POTASSIUM CHLORIDE ER 10 MEQ TAB.ER.PRT PO SCH (17:20)
[2018-07-18] MEDS: MELATONIN 3 MG TABLET PO SCH (22:17)
[2018-07-18] MEDS: LOSARTAN 25 MG TAB PO SCH (22:18)
[2018-07-19 06:44] LABS: Calcium 9.1 mg/dL (8.4-10.2); Potassium 3.9 mmol/L (3.5-5.1)
[2018-07-19] MEDS: BUDESONIDE 1 MG/2 ML NEBU INHALATION SCH (08:33)
[2018-07-19] MEDS: IPRATROPIUM-ALBUTEROL 3 ML NEB INHALATION PRN ×2 (08:33→11:52)
[2018-07-19] MEDS: FORMOTEROL FUMARATE 20 MCG/2 ML NEBU INHALATION SCH (08:33)
--- NOTE | 2018-07-19 09:15 | XR ---
EXAMINATION TYPE: XR chest 1V portable DATE OF EXAM: 07/19/2018 COMPARISON: 07/15/2018 INDICATION: Short of breath TECHNIQUE: Single frontal view of the chest is obtained. FINDINGS: The heart size is normal. The pulmonary vasculature is normal. There is an infiltrate in the left lower lobe. This is increased over the interval. Correlate for pne umonia and atelectasis. Follow-up is recommended. IMPRESSION: 1. Left lower lobe infiltrate, new from prior examination. Correlate for atelectasis and pneumonia. F ollow-up is recommended.
[2018-07-19] MEDS: DILTIAZEM CD 180 MG CAP.ER.24H PO SCH (09:24)
[2018-07-19] MEDS: FUROSEMIDE 40 MG TAB PO SCH (09:24)
[2018-07-19] MEDS: acetaZOLAMIDE 250 MG TAB PO SCH (09:24)
[2018-07-19] MEDS: METOPROLOL TARTRATE 25 MG TAB PO SCH (09:24)
[2018-07-19] MEDS: FAMOTIDINE 20 MG TAB PO SCH (09:24)
[2018-07-19] MEDS: ISOSORBIDE MONONITRATE ER 15 MG TAB PO SCH (09:25)
[2018-07-19] MEDS: APIXABAN 2.5 MG TABLET PO SCH (09:25)
[2018-07-19] MEDS: ASPIRIN 81 MG PO SCH (09:25)
[2018-07-19] MEDS: DIGOXIN 250 MCG TAB PO SCH (09:25)
[2018-07-19] MEDS: CALCIUM CARBONATE 500 MG CHEWABLE PO SCH (09:25)
[2018-07-19 11:56] VITALS: BP 103/69; RESP 18; TEMP 97.5
[2018-07-19 12:08] VITALS: PULSE 74
[2018-07-19] MEDS ORDERED: LEVOFLOXACIN 500 MG TAB PO ONE (13:00)
--- NOTE | 2018-07-19 13:13 | P.DS ---
Providers Date of admission: 07/10/18 16:04 Expected date of discharge: 07/19/18 Attending physician: Phoenix Gutiérrez Consults: 07/10/18 16:04 Consult Physician Routine Consulting Provider: Santosh Pang Consult Reason/Comments: CHF Do you want consulting provider notified?: Yes 07/11/18 10:45 Consult Physician Routine Consulting Provider: Nam Rajan Consult Reason/Comments: chf Do you want consulting provider notified?: Yes Primary care physician: Phoenix Gutiérrez Hospital Course: This is an 87-year-old female patient of Dr. Gutiérrez and Dr. 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 Patient had a recent hospitalization June 18 through the which time she was treated for acute hypoxic respiratory failure secondary to COPD, acute on chronic diastolic heart failure with episodes of A. fib with RVR. Patient was discharged home with homecare. Patient presented to [facility] emergency center today due to severe shortness of breath that started last night and progressively worsened during the night. She denies any fever or chills. She denies significant lower extremity edema. She just returned from [place] 2 days prior. She denies any runny no stuffy nose, sore throat, body aches. EKG was a atrial fibrillation at [address]-T wave changes. White count 9.5, hemoglobin 12.7, platelet count 128, BUN 23 and creatinine 1.03, CO2 35, sodium 138, potassium 4.0, chloride 99, blood sugar 152. Total bilirubin 1.8, ALT 58. Troponin negative. ProBNP 9120. Chest x-ray reveals correlate for heart failure exacerbation as there is cardiomegaly with tiny bilateral pleural effusions and mild interstitial edema. Additional patchy posterior left basilar atelectasis and/or infiltrate. Patient was started on DuoNeb treatments , Cardizem drip, IV Lasix at 40 mg every 12 hours and resumed on home medications and admitted to the cardiac stepdown unit. Consults were requested with cardiology and pulmonary medicine. 07/11: Patient states that she is not diuresing very much. She does state that her breathing is much improved from yesterday. Her weight is down 0.2 kg from yesterday. She has been afebrile, pressure 105/65, pulse ox 93% on 2 L nasal cannula. Patient is not O2 dependent. 07/12: Patient remains on Cardizem drip. She has been resumed on her home dose of Lopressor which is 75 mg 3 times daily. Discuss with cardiology now K to just continue Cardizem drip and resume her Cardizem CD 300 mg daily. Blood pressures noted in the lower side. Heart rate is running in the 90s and low 100s. She is currently on Lasix 40 mg IV every 12 hours. Patient states her breathing and lower extremity edema is improved. She has met with the dietitian and has been provided information regarding her diet and understands that she needs to avoid salt. Anticipate probable discharge in the next 24 hours. PT consult will be requested. Patient is planning to return home with VNA. 07/13: Patient states her breathing is awful today. She has increased shortness of breath with ambulating just to the bathroom. In general she states her breathing is improved since she arrived. Heart rate is at 117. She is on oral Cardizem and metoprolol. Sodium 135, potassium 4.4, BUN 31 creatinine 0.9. Cardiology is recommending to continue IV Lasix today and plan for oral tomorrow. Documented weight is up from yesterday. Question whether this is accurate. Patient has a documented pulse ox of 88% with ambulation without oxygen today. We will plan to reevaluate tomorrow for home oxygen need. Case management is following. 07/14: Patient states that her breathing is better from yesterday but is not back to baseline. She still has some lower extremity edema. She states she was up all night every hour. Weight is up by 0.4 kg from yesterday. We will plan to increase Lasix frequency to every 8 hours, Lasix 40 mg IV. BUN 31 and creatinine 0.9. Sodium 135, potassium 4.4, chloride 100, CO2 32. We'll plan to continue IV Lasix and monitor over the weekend. 07/15: Patient states that she is feeling much better today in general and her breathing is better today from yesterday. She denies having any chest pain. She states she has some lightheadedness after she takes all of her morning medication but she knows to get up slowly. Documented heart rate is running in the low 100s but on exam heart rate is running in the 80s. Cardiology has increased her Cardizem CD to 360 mg daily and added and digoxin 250 g daily. Lasix is currently at 40 mg every 8 hours IV push. Pulse ox is 97% on 2 L nasal cannula. Sodium 135, BUN 20 creatinine 0.78. 07/16: Patient's heart rate has been running mostly in the 70s and 80s and increasing with activity. Pulse ox is 92% to 94% on 2 L nasal cannula. CO2 43 , sodium 136, potassium 4.1, chloride 87. She is on Lasix 40 mg IV every 8 hours and has been switched to 40 mg twice daily orally by cardiology and we will add and Diamox 250 mg daily. She states she slept well last night but did have an episode in the night of severe shortness of breath.. 07/17: Patient complains of feeling very tired today. She states she is unable to stay awake. Breathing is about the same from yesterday. Heart rate is running in the 70s, pulse ox 94% on 2 L nasal cannula. Diamox was added yesterday. Reviewed everything with the patient's daughter and the following have been added: Perforomist, Symbicort changed to Pulmicort twice daily, high resolution CAT scan, IgG, alpha-1 antitrypsin, angiotensin I converting enzyme ordered 07/18: Pulse ox 95% on 3 L nasal cannula, heart rate running in the 70s and 80s, afebrile. White count is normal at 5, hemoglobin 11.1. ABGs were obtained at midnight which show a pH of 7.34, pCO2 67, PaO2 74, bicarb 39, total CO2 41, O2 saturation 96 on FiO2 of 32. Sodium 133, potassium 3.6, chloride 89, CO2 39. Patient remains in atrial fibrillation with rate controlled. Patient states that her breathing is much improved today after she was started on steroids and nebulizer treatments. CT of the chest showed CAD, COPD with at least mild emphysema. Bronchial wall thickening could represent prominent component of chronic bronchitis or superimposed acute bronchitis. Tracheal flattening. 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 Chronic volume loss and consolidation in the inferior lingula and chronic scarring in the basilar right middle lobe. Findings unchanged from 2012, possible chronic sequelae of indolent or past PANTERA infection. No definite acute process seen. Small hiatal hernia. Dr. Pascual has cleared the patient for discharge yesterday. Patient family are planning for discharge to [facility]. Patient is waiting for insurance authorization. We will plan for discharge tomorrow. 07/19: Patient states she walked in the hallway and shortness of breath was improved. Pulseox 94% on 2L nasal cannula. Heart rate running in the 70s, temperature 97.5. Possible new left lower lobe pneumonia on chest x-ray this morning. Patient will be started on prophylactic antibiotics. Patient will be discharged to [facility] today in stable condition. Discharge diagnoses: 1. Dyspnea secondary to moderately severe COPD, acute on chronic diastolic heart failure and possibly related to episodes of A. fib with RVR. 2. COPD. 3. Acute on chronic diastolic heart failure. 4. Paroxysmal atrial fibrillation. 5. Hypertension. 6. Abrasions and edema to the lower extremities with weeping of serous material. Therahoney daily. Discharge plan: [facility] under the care of Dr. Gutiérrez. Impression and plan of care have been directed as dictated by the signing physician. Noelle Gilbert nurse practitioner acting as scribe for signing physician. Patient Condition at Discharge: Good Plan - Discharge Summary New Discharge Prescriptions: New Digoxin [Lanoxin] 250 mcg PO DAILY #30 tab Diltiazem Cd [Cardizem CD] 360 mg PO DAILY #60 cap.er.24h Ipratropium-Albuterol Nebulize [Duoneb 0.5 mg-3 mg/3 ml Soln] 3 ml INHALATION RT-Q4H PRN ampul.neb PRN Reason: Shortness Of Breath Budesonide [Pulmicort] 1 mg INHALATION RT-BID nebu Cephalexin [Keflex] 250 mg PO Q8HR #21 capsule predniSONE 0 mg PO DIRECTED #30 tab Arformoterol Tartrate [Brovana] 15 mcg INHALATION RT-BID #60 nebu Continue Aspirin 81 mg PO DAILY Apixaban [Eliquis] 2.5 mg PO BID tablet Famotidine [Pepcid] 20 mg PO BID Potassium Chloride [Klor-Con 10] 10 meq PO DAILY@1600 Calcium Carbonate [Calcium] 600 mg PO DAILY Isosorbide Mononitrate ER [Imdur] 15 mg PO DAILY #30 dose Diltiazem Cd [Cardizem CD] 300 mg PO DAILY #30 cap.er.24h Furosemide [Lasix] 40 mg PO BID@0900,1600 tab Metoprolol Tartrate [Lopressor] 75 mg PO TID tab Losartan [Cozaar] 25 mg PO HS #0 Melatonin 3 mg PO HS Discontinued Budesonide/Formoterol Fumarate [Symbicort 160-4.5 Mcg Inhaler] 1 puff INHALATION RT-BID Albuterol Nebulized [Ventolin Nebulized] 2.5 mg INHALATION RT-QID PRN PRN Reason: Shortness Of Breath Discharge Medication List Aspirin 81 mg PO DAILY 01/18/15 [History] Apixaban [Eliquis] 2.5 mg PO BID tablet 08/11/17 [Rx] Famotidine [Pepcid] 20 mg PO BID 10/23/17 [History] Potassium Chloride [Klor-Con 10] 10 meq PO DAILY@1600 10/23/17 [History] Calcium Carbonate [Calcium] 600 mg PO DAILY 06/01/18 [History] Isosorbide Mononitrate ER [Imdur] 15 mg PO DAILY #30 dose 06/03/18 [Rx] Diltiazem Cd [Cardizem CD] 300 mg PO DAILY #30 cap.er.24h 06/23/18 [Rx] Furosemide [Lasix] 40 mg PO BID@0900,1600 tab 06/23/18 [Rx] Losartan [Cozaar] 25 mg PO HS #0 06/23/18 [Rx] Metoprolol Tartrate [Lopressor] 75 mg PO TID tab 06/23/18 [Rx] Melatonin 3 mg PO HS 07/10/18 [History] Arformoterol Tartrate [Brovana] 15 mcg INHALATION RT-BID #60 nebu 07/19/18 [Rx] Budesonide [Pulmicort] 1 mg INHALATION RT-BID nebu 07/19/18 [Rx] Cephalexin [Keflex] 250 mg PO Q8HR #21 capsule 07/19/18 [Rx] Digoxin [Lanoxin] 250 mcg PO DAILY #30 tab 07/19/18 [Rx] Diltiazem Cd [Cardizem CD] 360 mg PO DAILY #60 cap.er.24h 07/19/18 [Rx] Ipratropium-Albuterol Nebulize [Duoneb 0.5 mg-3 mg/3 ml Soln] 3 ml INHALATION RT -Q4H PRN ampul.neb 07/19/18 [Rx] predniSONE 0 mg PO DIRECTED #30 tab 07/19/18 [Rx] Follow up Appointment(s)/Referral(s): Shruti Plasencia MD [STAFF PHYSICIAN] - 1 Week Phoenix Gutiérrez MD [Primary Care Provider] - 1 Week (at [facility] ) Josh Pina MD [STAFF PHYSICIAN] - 2 Weeks Patient Instructions/Handouts: Heart Failure (DC), Heart Healthy Diet (DC) Discharge Disposition: TRANSFER TO SNF/ECF
[2018-07-19 13:43] LABS: Alpha 1 Anti-Trypsin 197 mg/dL (90 - 200)
--- NOTE | 2018-07-19 14:49 | P.PN ---
Subjective Progress Note Date: 07/19/18 This is an 87-year-old female patient of Dr. Gutiérrez and Dr. 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 Patient had a recent hospitalization June 18 through the which time she was treated for acute hypoxic respiratory failure secondary to COPD, acute on chronic diastolic heart failure with episodes of A. fib with RVR. Patient was discharged home with homecare. Patient presented to [facility] emergency center with symptoms of moderate to severe shortness of breath, positive PND and orthopnea. Positive peripheral edema. EKG on admission here showed atrial fibrillation with a rapid ventricular response. She did have an echocardiogram with Doppler study performed in June which revealed an ejection fraction of 60-65% Patient is responding to IV Lasix, she states that she doesn't go to the bathroom often but when she goes she is putting out significant amounts of urine. Overall she does state that her breathing feels much better today, she still continues to have at least one plus bilateral peripheral edema. Blood pressure 95/60 with a heart rate of 90 this morning, 94% on 2 L of oxygen. Sodium 138, potassium 3.6, BUN 34, creatinine 1.1. Her BNP level on admission was 9120. The patient continues to be on IV Lasix 40 mg twice a day. 07/13/2018 Patient seen and examined this morning, continues to feel better. She does state that she continues to put out good amounts of urine each time she goes. Sodium 135, potassium 4.4, BUN 31, creatinine 0.9. Blood pressure this morning 130/70, heart rate 80s to 90s, 94% on 2 L of oxygen. 07/17/2018 Patient is sitting up in the chair at bedside this morning, overall feeling significantly better. Continues to have mild wheezing, denies any shortness of breath, but states when she exerts herself minimally she does get some difficulty in breathing. Overall since admission she is feeling significantly better. The patient is currently on oral diuretics. Blood pressure this morning 130/70 with a heart rate in the 70s, 94% on 2 L of oxygen. Sodium 136, potassium 4.1, BUN 15, creatinine 0.8. 07/18/2018 Patient was seen and examined this morning, sitting up in her chair at bedside, through the night last night, she states that she walked to the bathroom and upon arriving back to her chair she was extremely short of breath, her oxygen saturation dropped to 83% at that time. At the time of my examination this morning her breathing is much more stable, she still has scattered fine wheezing throughout, similar to yesterday. Her blood pressure this morning is 107/60 with a heart rate in the 80s. She is satting 95% on 3 L of oxygen this morning. 07/19/2018 She was seen and examined today, overall she's doing significantly better. Anticipating discharge. Hemodynamically she is stable. She did ambulate in the hallway with physical therapy today and tolerated it very well. Objective - Vital Signs Vital signs: Vital Signs Temp 97.5 F L 07/19/18 11:48 Pulse 74 07/19/18 12:07 Resp 18 07/19/18 11:48 BP 103/69 07/19/18 11:48 Pulse Ox 94 L 07/19/18 11:48 Intake & Output 07/18/18 07/19/18 07/19/18 18:59 06:59 18:59 Intake Total 660 480 180 Output Total 500 Balance 660 -20 180 Weight 82.5 kg 76 kg Intake: Oral 660 480 180 Output: Urine 500 Other: Voiding Method Toilet # Voids 3 2 1 - Exam PHYSICAL EXAMINATION: GENERAL: This is an 87-year-old female in no acute distress at the time of my examination HEENT: Head is atraumatic, normocephalic. Pupils equal, round. Sclera anicteric. Conjunctiva are clear. Mucous membranes of the mouth are moist. Neck is supple. There is no elevated jugular venous pressure. No carotid bruit is heard. HEART EXAMINATION: Heart S1 and S2 irregularly irregular soft systolic murmur is heard CHEST EXAMINATION:lungs clear with fine wheezing heard on expiration. ABDOMEN: Soft, nontender. Bowel sounds are heard. No organomegaly noted. EXTREMITIES: 2+ peripheral pulses with trace evidence of peripheral edema and no calf tenderness noted. She does have ulcerated areas noted on bilateral legs NEUROLOGIC patient is awake, alert and oriented 3 . . - Labs CBC & Chem 7: 07/18/18 05:35 07/19/18 05:47 Labs: Abnormal Lab Results - Last 24 Hours (Table) 07/19/18 Range/Units 05:47 Sodium 136 L (137-145) mmol/L Chloride 94 L (98-107) mmol/L Carbon Dioxide 39 H (22-30) mmol/L Assessment and Plan Plan: Assessment and plan #1 diastolic congestive heart failure acute on chronic, possibly exacerbated by A. fib with RVR. Diuresing on IV Lasix. Patient did have an echocardiogram performed in June which revealed a normal left ventricular systolic function. #2 COPD #3 paroxysmal atrial fibrillation #4 hypertension Plan From cardiology's perspective, the patient's heart rate today is under much better control, she is currently on oral diuretics. From our perspective she may be able to be discharged once cleared by primary. We'll make her a follow- up appointment in the office post discharge. DNP note has been reviewed, I agree with a documented findings and plan of care. Patient was seen and examined.
--- NOTE | 2018-07-19 16:29 | P.PN ---
Subjective Progress Note Date: 07/19/18 Principal diagnosis: Acute exacerbation of chronic diastolic heart failure related to A. fib RVR This is a 87-year-old white female patient past medical history of chronic congestive heart failure, chronic atrial fibrillation, COPD who came into the hospital on 07/10/2018 with complaints of increasing shortness of breath, weight gain, orthopnea, and exertional dyspnea. She states her lower extremities have been increasingly more swollen. She denied any cough, denied any phlegm production, no chest pain, no fever or chills, nausea, vomiting or diarrhea. Chest x-ray on admission showed renomegaly, make emphysematous changes, with left basilar opacity posteriorly, tiny bilateral pleural effusions and fluid in the major fissure, mild interstitial edema. ProBNP was 9120, troponins were negative 3. KG showed persistent atrial fibrillation, with rapid ventricular response, with a rate of 117 BPM. Last echocardiogram from June showed an ejection fraction of 60-65%. Patient has been seen by cardiology, she is being diuresed. Responding well to Lasix. Reading easier today. Currently on 2 L per nasal cannula pulse ox is 96%, hemodynamically stable, afebrile, lung sounds are diminished air entry bilaterally, with fine expiratory wheezing. Patient is on IV Lasix, Symbicort. She is on Eliquis for anticoagulation. She remains in A. fib, but her rate is better controlled, she does have a permanent pacemaker in place for history of heart block. On 07/16/2018 patient seen in follow-up on selective care unit, she is sitting up in the chair, in no acute distress, lung sounds reveal minimal rales at the left lower base, she remains in A. fib, and the rate is currently controlled, at 68-72 BPM. Currently on 2 L per nasal cannula pulse ox is 92%, at times seems a heart rate does go up over 100 probably with activity. Afebrile, today' s labs have been reviewed, shows sodium of 136, potassium is 4.1, chloride is 87 , CO2 is 43, BUN is 15 and creatinine 0.80. She is on Eliquis for anticoagulation, she is on oral Cardizem, oral Lasix at 40 mg twice daily, Imdur , and Lopressor at 75 mg 3 times a day. She is on Symbicort. Lung sounds are negative for any wheezing or rhonchi. On 07/18/2018 she seen in follow-up on selective care unit, less than patient expressed episode of respiratory distress, patient was getting up to the bathroom became very short of breath, struggled to recover and to catch her breath, her SpO2 was down to 83% on 2 L per nasal cannula. Patient was quite wheezy, and diminished, and decrease air entry, she was given IV Lasix, she diuresed through the night, she was given 2 breathing treatments [id number]. Blood gases were obtained, and it showed pO2 of 74, pCO2 of 67, and pH of 7.34, consistent with acute on chronic hypercapnic and hypoxemic respiratory failure. Patient did improve with interventions, this morning she seen sitting up in the chair, in no acute distress, is still dyspneic with exertion, even walking to the bathroom, currently on 3 L per nasal cannula pulse ox is 96%, no fever or chills, lung sounds are positive for better air entry bilaterally, no wheezing on today's exam, some bibasilar crackles. She remains in A. fib, with a controlled rate, is on oral anticoagulation, she is on oral Lasix, she is been diuresing, lower extremity edema is improving On 07/19/2018 patient seen in follow-up on selective care unit, she sits up in the chair, she is paying her bills. Currently on 2 L per nasal cannula pulse ox is 94%, she is afebrile, she continues to diurese on oral Lasix, lung sounds are positive for bibasilar crackles, worse on the left. Today's chest x-ray was reviewed, and showed left lower lobe infiltrate, likely related to atelectasis. No fever or chills. No chest pain, her A. fib is controlled. Her breathing is improving. From pulmonary perspective patient can be discharged to [facility] nursing and rehab Objective - Vital Signs Vital signs: Vital Signs Temp 97.5 F L 07/19/18 11:48 Pulse 74 07/19/18 12:07 Resp 18 07/19/18 11:48 BP 103/69 07/19/18 11:48 Pulse Ox 94 L 07/19/18 11:48 Intake & Output 07/18/18 07/19/18 07/19/18 18:59 06:59 18:59 Intake Total 660 480 180 Output Total 500 Balance 660 -20 180 Weight 82.5 kg 76 kg Intake: Oral 660 480 180 Output: Urine 500 Other: Voiding Method Toilet # Voids 3 2 1 - Exam GENERAL EXAM: Alert, pleasant, 87-year-old white female comfortable in no apparent distress. HEAD: Normocephalic/atraumatic. EYES: Normal reaction of pupils, equal size. Conjunctiva pink, sclera white. NOSE: Clear with pink turbinates. THROAT: No erythema or exudates. NECK: No masses, no JVD, no thyroid enlargement, no adenopathy. CHEST: No chest wall deformity. Symmetrical expansion. LUNGS: Equal air entry with diminished breath sounds, bibasilar crackles CVS: Regular rate and rhythm, normal S1 and S2, no gallops, no murmurs, no rubs ABDOMEN: Soft, nontender. No hepatosplenomegaly, normal bowel sounds, no guarding or rigidity. EXTREMITIES: No clubbing, no edema, no cyanosis, 2+ pulses and upper and lower extremities. MUSCULOSKELETAL: Muscle strength and tone normal. SPINE: No scoliosis or deformity SKIN: No rashes CENTRAL NERVOUS SYSTEM: Alert and oriented -3. No focal deficits, tone is normal in all 4 extremities. PSYCHIATRIC: Alert and oriented -3. Appropriate affect. Intact judgment and insight. - Labs CBC & Chem 7: 07/18/18 05:35 07/19/18 05:47 Labs: Abnormal Lab Results - Last 24 Hours (Table) 07/19/18 Range/Units 05:47 Sodium 136 L (137-145) mmol/L Chloride 94 L (98-107) mmol/L Carbon Dioxide 39 H (22-30) mmol/L Assessment and Plan Plan: Assessment: #1. Acute hypoxemic respiratory failure related to acute exacerbation of COPD likely triggered by fluid overload #2. Acute exacerbation of chronic diastolic heart failure, likely triggered by atrial fibrillation with RVR #3. Persistent atrial fibrillation, on chronic anticoagulation with Eliquis #4. History of COPD #5. Hypertension #6. DJD #7. History of dual-chamber permanent pacemaker insertion for history of sinus pause Plan: Continue current medical treatment, oral diuretics, today's chest x-ray has been reviewed with Dr. Pascual, and shows left lower lobe culture likely related to atelectasis, clinically patient is improving, less dyspneic, breathing better, fever or chills, no cough or congestion. This controlled, from pulmonary perspective she stable, can cleared for discharge to ECF today. Follow up with Dr. St in the office in 7-10 days. I performed a history & physical examination of the patient and discussed their management with my nurse practitioner, Kenna Ervin. I reviewed the nurse practitioner's note and agree with the documented findings and plan of care. Lung sounds are positive for diminished breath sounds, with a few end expiratory wheezes. The findings and the impression was discussed with the patient. I attest to the documentation by the nurse practitioner. Time with Patient: Less than 30
[2018-07-20] MEDS ORDERED: LEVOFLOXACIN 250 MG TAB PO SCH (12:00)
[2018-07-22 14:55] LABS: Alternaria Alternata IgG <2.0 mcg/mL (< 13.6); Aspergillus fumigatus IgG Not detected (Not detected); Aureobasidium pullulans IgG <2.0 mcg/mL (< 13.6); Cladosporium herbarium IgG 4.7 mcg/mL (< 14.7); Phoma ssp. IgG <2.0 mcg/mL (< 6.6); Saccaharomospora viridis Not detected (Not detected); Saccaharopoly. rectivirgula Not detected (Not detected)
== END 2018-07-19 16:05 | DRG 308 ==
LOC: EC 10:43 → 3SCARD 16:04
PROVIDERS: ADMIT Internal Medicine; ATTEND Internal Medicine
DX: I48.1 Persistent atrial fibrillation (principal); J96.21 Acute and chronic respiratory failure with hypoxia; J96.22 Acute and chronic respiratory failure with hypercapnia; I50.33 Acute on chronic diastolic (congestive) heart failure; J44.1 Chronic obstructive pulmonary disease with (acute) exacerbation; E87.3 Alkalosis; I11.0 Hypertensive heart disease with heart failure; K44.9 Diaphragmatic hernia without obstruction or gangrene; C44.90 Unspecified malignant neoplasm of skin, unspecified; H35.30 Unspecified macular degeneration; I27.20 Pulmonary hypertension, unspecified; M19.90 Unspecified osteoarthritis, unspecified site; I25.10 Atherosclerotic heart disease of native coronary artery without angina pectoris; S80.812A Abrasion, left lower leg, initial encounter; S80.811A Abrasion, right lower leg, initial encounter; Z79.51 Long term (current) use of inhaled steroids; Z79.01 Long term (current) use of anticoagulants; Z79.82 Long term (current) use of aspirin; Z79.899 Other long term (current) drug therapy; Z80.0 Family history of malignant neoplasm of digestive organs; Z85.828 Personal history of other malignant neoplasm of skin; Z87.891 Personal history of nicotine dependence; Z95.0 Presence of cardiac pacemaker; Z88.2 Allergy status to sulfonamides; Z91.013 Allergy to seafood
CPT/HCPCS: 36415; 36600; 71045; 71046; 71250; 80048; 80053; 82103; 82104; 82164; 82550; 82553; 82785; 82805; 83735; 83880; 84484; 85025; 85027; 85379; 85610; 85730; 86001; 86606; 86609; 93005; 94640; 96365; 96366; 96375; 96376; 99291

== ENCOUNTER 2018-08-24 15:37 | Inpatient (IN) | payer MEDICARE ==
[2018-08-24] MEDS ORDERED: DEXAMETHASONE 4 MG TAB PO STA (16:17)
--- NOTE | 2018-08-24 16:17 | XR ---
EXAMINATION TYPE: XR chest 2V DATE OF EXAM: 08/24/2018 COMPARISON: 07/19/2018 HISTORY: Shortness of breath TECHNIQUE: Frontal and lateral views of the chest are obtained. FINDINGS: Scattered senescent parenchymal changes noted. Hyperinflation compatible with COPD. Patchy infrahilar infiltrates noted which may reflect pneumonia. Correlate clinically and progress st udies are advised. Heart size is stable. Mediastinal structures are stable and grossly unremarkable. No evidence for hilar prominence. Degenerative changes dorsal spine. IMPRESSION: 1. Patchy infrahilar infiltrates noted which may reflect pneumonia. Correlate clinically and progress studies are advised.
--- NOTE | 2018-08-24 16:20 | ED ---
General Adult HPI - General Chief complaint: Shortness of Breath Stated complaint: SOB Time Seen by Provider: 08/24/18 15:58 Source: patient Mode of arrival: ambulatory Limitations: no limitations - History of Present Illness Initial comments: Dictation was produced using [employer] dictation software. please excuse any grammatical, word or spelling errors. Chief Complaint: 87-year-old female past medical history of A. fib, cancer, heart attack, COPD presents with dyspnea times one day. History of Present Illness: Patient states she's become more dyspneic especially this morning. His symptoms started yesterday. She took 2 nebulizer treatments. Typically 2 nebulizer treatments whenever she is short of breath however her symptoms did not go away this time. She denies any coughing. No constitutional symptoms. Patient states that she has a history of COPD and CHF. Denies any orthopnea. Patient denies any chest pain. The ROS documented in this emergency department record has been reviewed and confirmed by me. Those systems with pertinent positive or negative responses have been documented in the HPI. All other systems are other negative and/or noncontributory. PHYSICAL EXAM: General Impression: Alert and oriented x3, mild respiratory distress, lip pursing HEENT: Normocephalic atraumatic, extra-ocular movements intact, pupils equal and reactive to light bilaterally, mucous membranes moist. Cardiovascular: Heart regular rate and rhythm, S1&S2 audible, no murmurs, rubs or gallops Chest: Bilateral lung rhonchi Abdomen: Bowel sounds present, abdomen soft, non-tender, non-distended, no organomegaly Musculoskeletal: Pulses present and equal in all extremities, 1+ pitting edema Motor: Power 5/5 bilaterally, no focal deficits noted Neurological: CN II-XII grossly intact, no focal motor or sensory deficits noted Skin: Intact with no visualized rashes Psych: Normal affect and mood ED course: 87-year-old female with past medical history of CHF, COPD and atrial fibrillation presents with chief complaint of dyspnea. Vital signs upon arrival shows 94% on 3 L is cannula. Patient normally wears 2 L days cannula at home at baseline. Laboratory evaluation obtained. CBC, coag panel, metabolic panel is unremarkable. Patient does have elevated prematurity peptide with slight elevation in troponin. Chest x-ray shows patchy infrahilar infiltrates. Given patient's age and comorbidities we will plan to have patient admitted for hypoxic respiratory failure. Patient's clinical presentation consistent with pneumonia with COPD exacerbation. She is given steroids and antibiotics and breathing treatment. Patient appears clinically well. She feels improved after breathing treatments. EKG interpretation: Ventricular rate 60, atrial paced rhythm, WV interval 24, care is 80, QTc 10/05/1950. No WV prolongation, no QTC prolongation, no ST or T- wave changes noted. EKG compared to continue 01/20/2019 showing no changes. Overall, this EKG is unremarkable - Related Data Home Medications Medication Instructions Recorded Confirmed Aspirin 81 mg PO DAILY 01/18/15 08/24/18 Famotidine [Pepcid] 20 mg PO BID 10/23/17 08/24/18 Potassium Chloride [Klor-Con 10] 10 meq PO DAILY@1600 10/23/17 08/24/18 Calcium Carbonate [Calcium] 600 mg PO DAILY 06/01/18 08/24/18 Melatonin 3 mg PO HS 07/10/18 08/24/18 Previous Rx's Medication Instructions Recorded Apixaban [Eliquis] 2.5 mg PO BID tablet 08/11/17 Isosorbide Mononitrate ER [Imdur] 15 mg PO DAILY #30 dose 06/03/18 Furosemide [Lasix] 40 mg PO BID@0900,1600 tab 06/23/18 Losartan [Cozaar] 25 mg PO HS #0 06/23/18 Metoprolol Tartrate [Lopressor] 75 mg PO TID tab 06/23/18 Arformoterol Tartrate [Brovana] 15 mcg INHALATION RT-BID #60 nebu 07/19/18 Budesonide [Pulmicort] 1 mg INHALATION RT-BID nebu 07/19/18 Digoxin [Lanoxin] 250 mcg PO DAILY #30 tab 07/19/18 Diltiazem Cd [Cardizem CD] 360 mg PO DAILY #60 cap.er.24h 07/19/18 Ipratropium-Albuterol Nebulize 3 ml INHALATION RT-Q4H PRN 07/19/18 [Duoneb 0.5 mg-3 mg/3 ml Soln] ampul.neb Allergies Allergy/AdvReac Type Severity Reaction Status Date / Time shellfish derived [Shellfish] Allergy Nausea & Verified 08/24/18 16:11 Vomiting & Diarrhea Sulfa (Sulfonamide Allergy Unknown Verified 08/24/18 16:11 Antibiotics) Childhood Review of Systems ROS Statement: Those systems with pertinent positive or pertinent negative responses have been documented in the HPI. ROS Other: All systems not noted in ROS Statement are negative. Past Medical History Past Medical History: Atrial Fibrillation, Cancer, Heart Failure, COPD, Hypertension, Osteoarthritis (OA) Additional Past Medical History / Comment(s): skin cancer on scalp, macular degeneration History of Any Multi-Drug Resistant Organisms: None Reported Past Surgical History: Hernia Repair, Pacemaker, Tonsillectomy Additional Past Surgical History / Comment(s): skin cancer removed from scalp, andrew cataracts Past Anesthesia/Blood Transfusion Reactions: No Reported Reaction Type of Cardiac Device: Permanent Pacemaker Device Placement Date:: 2017 Past Psychological History: No Psychological Hx Reported Smoking Status: Former smoker Past Alcohol Use History: Occasional Past Drug Use History: None Reported - Past Family History Father Additional Family Medical History / Comment(s): Father at age 91 with history of heart disease. Mother Family Medical History: Cancer Additional Family Medical History / Comment(s): Mother at age 87 from pancreatic cancer. Brother(s) Additional Family Medical History / Comment(s): Patient has 1 brother that at age 93 from liver cancer. Sister(s) Additional Family Medical History / Comment(s): Patient has 2 sisters with no major medical problems. Daughter(s) Additional Family Medical History / Comment(s): Patient has a total of 4 children, 3 daughters and 1 son. One daughter at a young age and a motor vehicle accident. General Exam Limitations: no limitations Course Vital Signs 08/24/18 08/24/18 08/24/18 15:42 15:52 16:53 Temperature 97.7 F Pulse Rate 60 60 Respiratory 18 22 Rate Blood Pressure 150/57 O2 Sat by Pulse 94 L Oximetry 08/24/18 08/24/18 16:57 17:03 Temperature Pulse Rate 60 60 Respiratory 20 Rate Blood Pressure 137/76 O2 Sat by Pulse 100 Oximetry Medical Decision Making - Lab Data Result diagrams: 08/24/18 16:26 08/24/18 16:26 Lab Results 08/24/18 08/24/18 08/24/18 Range/Units 16:26 16:26 16:26 WBC 8.9 (3.8-10.6) k/uL RBC 4.00 (3.80-5.40) m/uL Hgb 11.7 (11.4-16.0) gm/dL Hct 37.4 (34.0-46.0) % MCV 93.6 (80.0-100.0) fL MCH 29.2 (25.0-35.0) pg MCHC 31.2 (31.0-37.0) g/dL RDW 15.2 (11.5-15.5) % Plt Count 250 (150-450) k/uL Neutrophils % 72 % Lymphocytes % 19 % Monocytes % 7 % Eosinophils % 2 % Basophils % 0 % Neutrophils # 6.4 (1.3-7.7) k/uL Lymphocytes # 1.7 (1.0-4.8) k/uL Monocytes # 0.6 (0-1.0) k/uL Eosinophils # 0.2 (0-0.7) k/uL Basophils # 0.0 (0-0.2) k/uL Hypochromasia Slight PT 10.3 (9.0-12.0) sec INR 1.0 (<1.2) APTT 25.3 (22.0-30.0) sec Sodium 137 (137-145) mmol/L Potassium 4.2 (3.5-5.1) mmol/L Chloride 94 L (98-107) mmol/L Carbon Dioxide 39 H (22-30) mmol/L Anion Gap 4 mmol/L BUN 18 H (7-17) mg/dL Creatinine 0.95 (0.52-1.04) mg/dL Est GFR (CKD-EPI)AfAm 63 (>60 ml/min/1.73 sqM) Est GFR (CKD-EPI)NonAf 55 (>60 ml/min/1.73 sqM) Glucose 159 H (74-99) mg/dL Calcium 8.7 (8.4-10.2) mg/dL Magnesium 2.2 (1.6-2.3) mg/dL Total Bilirubin 1.0 (0.2-1.3) mg/dL AST 31 (14-36) U/L ALT 54 H (9-52) U/L Alkaline Phosphatase 44 (38-126) U/L Troponin I (0.000-0.034) ng/mL NT-Pro-B Natriuret Pep pg/mL Total Protein 5.7 L (6.3-8.2) g/dL Albumin 3.5 (3.5-5.0) g/dL 08/24/18 08/24/18 Range/Units 16:26 16:26 WBC (3.8-10.6) k/uL RBC (3.80-5.40) m/uL Hgb (11.4-16.0) gm/dL Hct (34.0-46.0) % MCV (80.0-100.0) fL MCH (25.0-35.0) pg MCHC (31.0-37.0) g/dL RDW (11.5-15.5) % Plt Count (150-450) k/uL Neutrophils % % Lymphocytes % % Monocytes % % Eosinophils % % Basophils % % Neutrophils # (1.3-7.7) k/uL Lymphocytes # (1.0-4.8) k/uL Monocytes # (0-1.0) k/uL Eosinophils # (0-0.7) k/uL Basophils # (0-0.2) k/uL Hypochromasia PT (9.0-12.0) sec INR (<1.2) APTT (22.0-30.0) sec Sodium (137-145) mmol/L Potassium (3.5-5.1) mmol/L Chloride (98-107) mmol/L Carbon Dioxide (22-30) mmol/L Anion Gap mmol/L BUN (7-17) mg/dL Creatinine (0.52-1.04) mg/dL Est GFR (CKD-EPI)AfAm (>60 ml/min/1.73 sqM) Est GFR (CKD-EPI)NonAf (>60 ml/min/1.73 sqM) Glucose (74-99) mg/dL Calcium (8.4-10.2) mg/dL Magnesium (1.6-2.3) mg/dL Total Bilirubin (0.2-1.3) mg/dL AST (14-36) U/L ALT (9-52) U/L Alkaline Phosphatase (38-126) U/L Troponin I 0.028 (0.000-0.034) ng/mL NT-Pro-B Natriuret Pep 3090 pg/mL Total Protein (6.3-8.2) g/dL Albumin (3.5-5.0) g/dL Disposition Clinical Impression: COPD exacerbation, Hypoxia Disposition: ADMITTED IP TO THIS HOSP Condition: Fair Referrals: Shruti Plasencia MD [Primary Care Provider] - 1-2 days Decision Time: 18:22
[2018-08-24 16:30] LABS: Basophils % (A) 0 %; Eosinophils # (A) 0.2 k/uL (0-0.7); Eosinophils % (A) 2 %; HCT 37.4 % (34.0-46.0); HGB 11.7 gm/dL (11.4-16.0); Hypochromasia Slight; Lymphocytes # (A) 1.7 k/uL (1.0-4.8); Lymphocytes % (A) 19 %; MCH 29.2 pg (25.0-35.0); MCHC 31.2 g/dL (31.0-37.0); MCV 93.6 fL (80.0-100.0); Mean Platelet Volume 6.8; Monocytes # (A) 0.6 k/uL (0-1.0); Monocytes % (A) 7 %; Neutrophils # (A) 6.4 k/uL (1.3-7.7); Neutrophils % (A) 72 %; Platelet Count 250 k/uL (150-450); RDW 15.2 % (11.5-15.5); WBC 8.9 k/uL (3.8-10.6)
[2018-08-24 16:38] LABS: Partial Thromboplastin Time 25.3 sec (22.0-30.0); Prothrombin Time 10.3 sec (9.0-12.0)
[2018-08-24] MEDS ORDERED: AZITHROMYCIN 500 MG TAB PO STA ×2 (16:44)
[2018-08-24 16:45] LABS: Albumin 3.5 g/dL (3.5-5.0); Calcium 8.7 mg/dL (8.4-10.2); Magnesium 2.2 mg/dL (1.6-2.3); Potassium 4.2 mmol/L (3.5-5.1); Total Protein 5.7 g/dL (6.3-8.2)
[2018-08-24] MEDS: IPRATROPIUM 0.5 MG/2.5 ML NEBU INHALATION STA ×2 (16:45→16:57)
[2018-08-24] MEDS: ALBUTEROL NEBULIZED 2.5 MG/3 ML INHALATION STA ×2 (16:45→16:57)
[2018-08-24] MEDS ORDERED: IPRATROPIUM-ALBUTEROL 3 ML NEB INHALATION STA (16:53)
[2018-08-24] MEDS ORDERED: IPRATROPIUM-ALBUTEROL 3 ML NEB INHALATION PRN (20:04)
[2018-08-24] MEDS: FAMOTIDINE 20 MG TAB PO SCH (20:53)
[2018-08-24] MEDS: LOSARTAN 25 MG TAB PO SCH (20:53)
[2018-08-24] MEDS: MELATONIN 3 MG TABLET PO SCH (20:53)
[2018-08-24] MEDS: METOPROLOL TARTRATE 25 MG TAB PO SCH (20:53)
[2018-08-24] MEDS: APIXABAN 2.5 MG TABLET PO SCH (20:53)
[2018-08-24 22:24] LABS: Appearance,Urine Clear (Clear); Bilirubin,Urine Negative (Negative); Blood,Urine Negative (Negative); Color,Urine Yellow; Glucose,Urine (UA) Negative (Negative); Hyaline Casts,Urine 12 /lpf (0-2); Ketones,Urine Negative (Negative); Leukocyte Esterase,Urine Trace (Negative); Mucus,Urine Rare /hpf; Nitrite,Urine Negative (Negative); PH, Urine 6.5 (5.0-8.0); Protein,Urine Negative (Negative); RBC,Urine 1 /hpf (0-5); Specific Gravity,Urine 1.012 (1.001-1.035); Squamous Epithelial Cell,Urine 3 /hpf (0-4); Urobilinogen,Urine <2.0 mg/dL (<2.0)
[2018-08-24] MEDS: IPRATROPIUM-ALBUTEROL 3 ML NEB INHALATION SCH (23:32)
[2018-08-25] MEDS: IPRATROPIUM-ALBUTEROL 3 ML NEB INHALATION SCH ×4 (07:37→19:11)
[2018-08-25] MEDS: BUDESONIDE 1 MG/2 ML NEBU INHALATION SCH ×2 (07:37→19:11)
[2018-08-25] MEDS ORDERED: IPRATROPIUM-ALBUTEROL 3 ML NEB INHALATION SCH (08:00)
[2018-08-25] MEDS: predniSONE 20 MG TAB PO SCH (08:42)
[2018-08-25] MEDS: DILTIAZEM CD 180 MG CAP.ER.24H PO SCH (08:42)
[2018-08-25] MEDS: METOPROLOL TARTRATE 25 MG TAB PO SCH ×3 (08:42→21:20)
[2018-08-25] MEDS: ISOSORBIDE MONONITRATE ER 15 MG TAB PO SCH (08:42)
[2018-08-25] MEDS: APIXABAN 2.5 MG TABLET PO SCH ×2 (08:43→21:19)
[2018-08-25] MEDS: FAMOTIDINE 20 MG TAB PO SCH (08:43)
[2018-08-25] MEDS: FUROSEMIDE 40 MG TAB PO SCH ×2 (08:43→16:00)
[2018-08-25] MEDS: DIGOXIN 250 MCG TAB PO SCH (08:43)
[2018-08-25] MEDS: CALCIUM CARBONATE 500 MG CHEWABLE PO SCH (08:43)
[2018-08-25] MEDS: ASPIRIN 81 MG PO SCH (08:43)
[2018-08-25] MEDS ORDERED: AZITHROMYCIN 500 MG TAB PO SCH (09:00)
--- NOTE | 2018-08-25 10:32 | P.HPIM ---
History of Present Illness H&P Date: 08/25/18 Chief Complaint: Acute respiratory failure, COPD exacerbation, severe purulent tracheal bron 87-year-old female was hospitalized at [facility] in July for 9 days for COPD exacerbation and had quite bit stiff lung at the time ended up seen pulmonary and after many days of trial with treatment patient ended up going to [facility] for almost 2 weeks. Patient had left [facility] over 10 days ago and back home still seen home care and visiting nurse when she started having significant change in her wrap respiration with worsening shortness of breath cough wheezes and severe hypoxia ended up becoming restless in the last 24 hours patient made it to the emergency department at [facility] despite doing her up with graft treatment on more regular basis at home not been able to reverse with going on fast patient had some nebulizer treatment along with higher O2 and Solu-Medrol started to feel little bit better she was admitted to the hospital after wrap calling her pulmonary and agreeable with the current plan. Talking the patient apparently does quite bit change in her medication specially in her nebulizer plan she was previously on Brovana which is not on it anymore, also her steroid nebulizer with changed to the distal night but apparently she understood that using it will replace do one nap and has not been doing DuoNeb that often. Also looking in her chest x-ray there is? Off slight infiltrate in the left base which could be any infection. Her influenza was negative at the time. Review of Systems CONSTITUTIONAL: Well-developed mild respiratory distress. EYES: No icterus sclerae, no conjunctivitis. EARS, NOSE, MOUTH, THROAT, and FACE: No sore throat, lymphadenopathy, carotid bruits or deformity. RESPIRATORY: Positive shortness of breath cough wheezes. CARDIOVASCULAR: Positive palpitation, PND and orthopnea with no angina. GASTROINTESTINAL: No Abd pain, Nausea or vomiting, no Diarrhea or constipation, No GI Bleed, no distention or masses. GENITOURINARY: Negative for Hematuria or UTI, no kidney stones. INTEGUMENT/BREAST: Negative for any muscular injury with mild osteoarthritis.. HEMATOLOGIC/LYMPHATIC: Negative for bleed or purpura. MUSCULOSKELTAL: Negative for Myalgia or arthralgia. NEURLOGICAL: No LOC, Sz or syncope, blurred vision dizziness or abnormality.. BEHAVIORAL/PSYCH: Negative. ENDOCRINE: Negative. Past Medical History Past Medical History: Atrial Fibrillation, Cancer, Heart Failure, COPD, Hypertension, Osteoarthritis (OA) Additional Past Medical History / Comment(s): skin cancer on scalp, macular degeneration History of Any Multi-Drug Resistant Organisms: None Reported Past Surgical History: Hernia Repair, Pacemaker, Tonsillectomy Additional Past Surgical History / Comment(s): skin cancer removed from scalp, andrew cataracts Past Anesthesia/Blood Transfusion Reactions: No Reported Reaction Type of Cardiac Device: Permanent Pacemaker Device Placement Date:: 2017 Past Psychological History: No Psychological Hx Reported Smoking Status: Former smoker Past Alcohol Use History: Occasional Additional Past Alcohol Use History / Comment(s): Patient states that she was a smoker less than a pack a day for 20-30 years and quit 10 years ago. She denies any illicit drug use or alcohol use. She currently lives at home alone. Past Drug Use History: None Reported - Past Family History Father Additional Family Medical History / Comment(s): Father at age 91 with history of heart disease. Mother Family Medical History: Cancer Additional Family Medical History / Comment(s): Mother at age 87 from pancreatic cancer. Brother(s) Additional Family Medical History / Comment(s): Patient has 1 brother that at age 93 from liver cancer. Sister(s) Additional Family Medical History / Comment(s): Patient has 2 sisters with no major medical problems. Daughter(s) Additional Family Medical History / Comment(s): Patient has a total of 4 children, 3 daughters and 1 son. One daughter at a young age and a motor vehicle accident. Medications and Allergies Home Medications Medication Instructions Recorded Confirmed Type Aspirin 81 mg PO DAILY 01/18/15 08/24/18 History Apixaban [Eliquis] 2.5 mg PO BID tablet 08/11/17 08/24/18 Rx Famotidine [Pepcid] 20 mg PO BID 10/23/17 08/24/18 History Potassium Chloride [Klor-Con 10] 10 meq PO DAILY@1600 10/23/17 08/24/18 History Calcium Carbonate [Calcium] 600 mg PO DAILY 06/01/18 08/24/18 History Isosorbide Mononitrate ER [Imdur] 15 mg PO DAILY #30 dose 06/03/18 08/24/18 Rx Furosemide [Lasix] 40 mg PO BID@0900,1600 tab 06/23/18 08/24/18 Rx Losartan [Cozaar] 25 mg PO HS #0 06/23/18 08/24/18 Rx Metoprolol Tartrate [Lopressor] 75 mg PO TID tab 06/23/18 08/24/18 Rx Melatonin 3 mg PO HS 07/10/18 08/24/18 History Arformoterol Tartrate [Brovana] 15 mcg INHALATION RT-BID #60 nebu 07/19/1808/24 Rx Budesonide [Pulmicort] 1 mg INHALATION RT-BID nebu 07/19/18 08/24/18 Rx Digoxin [Lanoxin] 250 mcg PO DAILY #30 tab 07/19/18 08/24/18 Rx Diltiazem Cd [Cardizem CD] 360 mg PO DAILY #60 cap.er.24h 07/19/18 08/24/18 Rx Ipratropium-Albuterol Nebulize 3 ml INHALATION RT-Q4H PRN 07/19/18 08/24/18 Rx [Duoneb 0.5 mg-3 mg/3 ml Soln] ampul.neb Allergies Allergy/AdvReac Type Severity Reaction Status Date / Time shellfish derived [Shellfish] Allergy Nausea & Verified 08/24/18 16:11 Vomiting & Diarrhea Sulfa (Sulfonamide Allergy Unknown Verified 08/24/18 16:11 Antibiotics) Childhood Physical Exam Vitals: Vital Signs Temp Pulse Pulse Resp BP BP Pulse Ox 08/25/18 07:49 66 08/25/18 07:37 62 08/25/18 06:26 96.6 F L 60 18 160/75 96 08/24/18 23:00 97.3 F L 60 17 131/71 100 08/24/18 20:08 97.6 F 60 18 181/79 91 L 08/24/18 20:03 98.4 F 61 18 168/85 95 08/24/18 18:24 60 18 164/68 96 08/24/18 17:03 60 08/24/18 16:57 60 20 137/76 100 08/24/18 16:53 60 08/24/18 15:52 22 08/24/18 15:42 97.7 F 60 18 150/57 94 L Intake and Output 08/24/18 08/25/18 08/25/18 22:59 06:59 14:59 Other: # Voids 2 2 1 Weight 78.471 kg General Appearance: Alert, cooperative, mild distress, appears stated age. Neck HEENT: Supple, no lymphadenopathy, no thyroid enlargement, no carotid bruits. Lungs: Decreased breath sound bilaterally with fine rhonchi and mild crackle in the left base, positive inspiratory expiratory wheezes. Chest Wall: Decrease expansion with deep inspiration no tenderness and no deformity was found on exam, no costochondral pain or discomfort. Heart: Irregular rate and rhythm, S1, S2 normal, no murmur, rub or gallop. Positive JVD Back: Symmetric, no curvature, ROM normal, no CVA tenderness. Abdomen: Soft, non-tender, bowel sounds active all four quadrants, no masses, no organomegaly. Extremities: Extremities normal, atraumatic, no cyanosis or edema. Pulses: 2+ and symmetric. Skin: Skin color, texture, tugor normal, no rashes or lesions. Neurologic: Alert oriented x3 cranial nerves II through XII intact, no motor deficit, no abnormal balance or gait. Results CBC & Chem 7: 08/24/18 16:26 08/24/18 16:26 Labs: Abnormal Lab Results - Last 24 Hours (Table) 08/24/18 08/24/18 Range/Units 16:26 20:20 Chloride 94 L (98-107) mmol/L Carbon Dioxide 39 H (22-30) mmol/L BUN 18 H (7-17) mg/dL Glucose 159 H (74-99) mg/dL ALT 54 H (9-52) U/L Total Protein 5.7 L (6.3-8.2) g/dL Ur Leukocyte Esterase Trace H (Negative) Hyaline Casts 12 H (0-2) /lpf Urine Mucus Rare H (None) /hpf Thrombosis Risk Factor Assmnt - DVT/VTE Prophylaxis DVT/VTE Prophylaxis: Pharmacologic Prophylaxis ordered, Mechanical Prophylaxis ordered - Choose All That Apply Each Factor Represents 1 point: Obesity (BMI >25) Each Risk Factor Represents 3 Points: Age 75 years or older Thrombosis Risk Factor Assessment Total Risk Factor Score: 4 Thrombosis Risk Factor Assessment Level: Moderate Risk Assessment and Plan Plan: 1 acute respiratory failure: Combination off COPD exacerbation, bronchitis and early pneumonia and cardiomyopathy with CHF. 2 COPD excessive patient: Most likely with failure to the appropriate management and medication the patient has not been using bronchodilator as frequent. Patient will be on Solu-Medrol, O2, DuoNeb 4 times a day and Pulmicort at least twice a day also we'll consult pulmonary at this point. 3 severe purulent tracheal bronchitis and early infiltrate in the left side: Patient was started on azithromycin continue medication might add Rocephin to it. 4 A. fib with RVR: Remain on Ahlquist 2.5 g twice a day still on metoprolol 75 mg twice a day heart rate is under control patient still on diltiazem 360 mg daily and digoxin 250 g daily. 5 congestive heart failure: Combination of systolic and diastolic remain on furosemide 40 mg twice a day with metoprolol 75 g twice a day isosorbide and digoxin. 6 hyperglycemia: Continue patient on Accu-Chek with sliding scales coverage at this point. 7 GI prophylaxis: Patient will be on Pepcid 20 mg daily. 8 DVT prophylaxis: Patient will be on heparin 5000 units twice a day. CODE STATUS: Full code. Admit patient to inpatient status for more than 2 nights.
--- NOTE | 2018-08-25 15:43 | P.CNPUL ---
History of Present Illness Consult date: 08/25/18 Reason for consult: COPD History of present illness: History 7-year-old female patient with known history of advanced COPD with an FEV1 of 39% of predicted we'll came in to the hospital yesterday because of worsening shortness of breath. The patient try to contact our office and her primary care physician. She was unable to get an. She decided to come into the hospital as the patient was having increased dyspnea and cough and chest tightness and wheezing. Her last hospitalization was in July 2018. The patient following that was transferred to [facility] for further rehabilitation where she stayed for a total of 2 weeks and following that she was discharged home. She was discharged home approximately 10 days ago. Her chest x-ray shows some limited infiltration in the lung bases which probably is chronic. No fever. No chills. Monitor mentation. No hemoptysis. No pleurisy. No nausea. No vomiting. No abdominal pain. No altered mentation. Influenza screen was negative. Currently she is doing well. All other blood work is within normal limits. She is tolerating her diet. No other significant events overnight. She was started on a combination of bronchodilators and systemic steroids. He is also on empiric antibiotic coverage with Zithromax on milligrams by mouth daily. Review of Systems Constitutional: Denies chills, Denies fever Eyes: denies blurred vision, denies pain Ears, nose, mouth and throat: Denies headache, Denies sore throat Cardiovascular: Reports decreased exercise tolerance, Reports dyspnea on exertion, Reports palpitations, Reports paroxysmal nocturnal dyspnea, Reports rapid heart beat, Denies chest pain, she has and admits to have shortness of breath Respiratory: Reports dyspnea, Denies cough, no significant sputum production. No chest pain. No pleurisy. Gastrointestinal: Denies abdominal pain, Denies diarrhea, Denies nausea, Denies vomiting Genitourinary: Denies dysuria, Denies hematuria Musculoskeletal: Denies myalgias Integumentary: Denies pruritus, Denies rash Neurological: Denies numbness, Denies weakness Psychiatric: Denies anxiety, Denies depression Endocrine: Denies fatigue, Denies weight change Past Medical History Past Medical History: Atrial Fibrillation, Cancer, Heart Failure, COPD, Hypertension, Osteoarthritis (OA) Additional Past Medical History / Comment(s): skin cancer on scalp, macular degeneration History of Any Multi-Drug Resistant Organisms: None Reported Past Surgical History: Hernia Repair, Pacemaker, Tonsillectomy Additional Past Surgical History / Comment(s): skin cancer removed from scalp, andrew cataracts Past Anesthesia/Blood Transfusion Reactions: No Reported Reaction Type of Cardiac Device: Permanent Pacemaker Device Placement Date:: 2017 Past Psychological History: No Psychological Hx Reported Smoking Status: Former smoker Past Alcohol Use History: Occasional Additional Past Alcohol Use History / Comment(s): Patient states that she was a smoker less than a pack a day for 20-30 years and quit 10 years ago. She denies any illicit drug use or alcohol use. She currently lives at home alone. Past Drug Use History: None Reported - Past Family History Father Additional Family Medical History / Comment(s): Father at age 91 with history of heart disease. Mother Family Medical History: Cancer Additional Family Medical History / Comment(s): Mother at age 87 from pancreatic cancer. Brother(s) Additional Family Medical History / Comment(s): Patient has 1 brother that at age 93 from liver cancer. Sister(s) Additional Family Medical History / Comment(s): Patient has 2 sisters with no major medical problems. Daughter(s) Additional Family Medical History / Comment(s): Patient has a total of 4 children, 3 daughters and 1 son. One daughter at a young age and a motor vehicle accident. Medications and Allergies Home Medications Medication Instructions Recorded Confirmed Type Aspirin 81 mg PO DAILY 01/18/15 08/24/18 History Apixaban [Eliquis] 2.5 mg PO BID tablet 08/11/17 08/24/18 Rx Famotidine [Pepcid] 20 mg PO BID 10/23/17 08/24/18 History Potassium Chloride [Klor-Con 10] 10 meq PO DAILY@1600 10/23/17 08/24/18 History Calcium Carbonate [Calcium] 600 mg PO DAILY 06/01/18 08/24/18 History Isosorbide Mononitrate ER [Imdur] 15 mg PO DAILY #30 dose 06/03/18 08/24/18 Rx Furosemide [Lasix] 40 mg PO BID@0900,1600 tab 06/23/18 08/24/18 Rx Losartan [Cozaar] 25 mg PO HS #0 06/23/18 08/24/18 Rx Metoprolol Tartrate [Lopressor] 75 mg PO TID tab 06/23/18 08/24/18 Rx Melatonin 3 mg PO HS 07/10/18 08/24/18 History Arformoterol Tartrate [Brovana] 15 mcg INHALATION RT-BID #60 nebu 07/19/1808/24 Rx Budesonide [Pulmicort] 1 mg INHALATION RT-BID nebu 07/19/18 08/24/18 Rx Digoxin [Lanoxin] 250 mcg PO DAILY #30 tab 07/19/18 08/24/18 Rx Diltiazem Cd [Cardizem CD] 360 mg PO DAILY #60 cap.er.24h 07/19/18 08/24/18 Rx Ipratropium-Albuterol Nebulize 3 ml INHALATION RT-Q4H PRN 07/19/18 08/24/18 Rx [Duoneb 0.5 mg-3 mg/3 ml Soln] ampul.neb Allergies Allergy/AdvReac Type Severity Reaction Status Date / Time shellfish derived [Shellfish] Allergy Nausea & Verified 08/24/18 16:11 Vomiting & Diarrhea Sulfa (Sulfonamide Allergy Unknown Verified 08/24/18 16:11 Antibiotics) Childhood Physical Exam Vitals: Vital Signs Temp Pulse Pulse Resp BP BP Pulse Ox 08/25/18 15:28 68 08/25/18 14:41 97.6 F 60 18 116/67 98 08/25/18 11:20 70 08/25/18 11:09 68 08/25/18 07:49 66 08/25/18 07:37 62 08/25/18 06:26 96.6 F L 60 18 160/75 96 08/24/18 23:00 97.3 F L 60 17 131/71 100 08/24/18 20:08 97.6 F 60 18 181/79 91 L 08/24/18 20:03 98.4 F 61 18 168/85 95 08/24/18 18:24 60 18 164/68 96 08/24/18 17:03 60 08/24/18 16:57 60 20 137/76 100 08/24/18 16:53 60 08/24/18 15:52 22 08/24/18 15:42 97.7 F 60 18 150/57 94 L Intake and Output 02/08/25/18 08/25/18 06:59 14:59 22:59 Other: # Voids 2 1 GENERAL EXAM: Alert, pleasant, 87-year-old white female , nonacute distress and the patient has awake and alert and she is able to speak in full sentences without any major difficulties. HEAD: Normocephalic/atraumatic. EYES: Normal reaction of pupils, equal size. Conjunctiva pink, sclera white. NOSE: Clear with pink turbinates. THROAT: No erythema or exudates. NECK: No masses, no JVD, no thyroid enlargement, no adenopathy. CHEST: No chest wall deformity. Symmetrical expansion. LUNGS: Equal air entry with diffuse wheezing and bibasilar crackles CVS: Regular rate and rhythm, normal S1 and S2, no gallops, no murmurs, no rubs ABDOMEN: Soft, nontender. No hepatosplenomegaly, normal bowel sounds, no guarding or rigidity. EXTREMITIES: No clubbing, no edema, no cyanosis, 2+ pulses and upper and lower extremities. MUSCULOSKELETAL: Muscle strength and tone normal. SPINE: No scoliosis or deformity SKIN: No rashes CENTRAL NERVOUS SYSTEM: Alert and oriented -3. No focal deficits, tone is normal in all 4 extremities. PSYCHIATRIC: Alert and oriented -3. Appropriate affect. Intact judgment and insight. Results - Laboratory Findings CBC and BMP: 08/24/18 16:26 08/24/18 16:26 PT/INR, D-dimer PT 10.3 sec (9.0-12.0) 08/24/18 16:26 INR 1.0 (<1.2) 08/24/18 16:26 Abnormal lab findings: Abnormal Labs 08/24/18 08/24/18 16:26 20:20 Chloride 94 L Carbon Dioxide 39 H BUN 18 H Glucose 159 H ALT 54 H Total Protein 5.7 L Ur Leukocyte Esterase Trace H Hyaline Casts 12 H Urine Mucus Rare H - Diagnostic Findings Chest x-ray: image reviewed Assessment and Plan Plan: Assessment: #1. Acute COPD exacerbation. The exact cause is not clear. No clear evidence of pneumonia. The infiltration of the lung bases are probably chronic. The patient was covered with empiric antibiotics. The patient is doing better and much improved compared to yesterday. #2. Chronic atrial fibrillation, the patient is currently on Eliquis for anticoagulation. The patient is also on metoprolol for rate control in conjunction with Cardizem. #3. Advanced COPD with an FEV1 of 39% of predicted and the patient has had previous hospital physician force the same. #4. Chronic hypoxic respiratory failure secondary to above #5. Chronic systolic congestive heart failure, most recent EF on 08/08/2017 45- 50%, and evidence of mild to moderate pulmonary hypertension with right ventricular systolic pressure of 46.5 mmHg. Today echocardiogram showed an improved EF of 55-60%, and no evidence of pulmonary hypertension with right ventricular systolic pressure of 29 mmHg #6. History of dual-chamber pacemaker insertion for fevers history of sinus pause #7. Previous episodes of COPD exacerbation requiring BiPAP for Erika support #8. Hypertension #9. Nicotine dependence, in remission, carries [id number] smoking history Plan Agree on the current treatment. Continue bronchodilators. Continue systemic steroids. Continue oral Zithromax. Reassured the patient. Clinically much improved. Influenza screen was negative. We'll continue to follow and will probably discharge the patient within next 24 hours. The patient will need to go on a combination of Perforomist and Pulmicort neb last 2 minutes twice a day in addition to DuoNeb nebulized treatments around the clock as needed. These will be her outpatient medications in addition to her prednisone burst taper. We'll continue to follow.
[2018-08-25] MEDS: POTASSIUM CHLORIDE ER 10 MEQ TAB.ER.PRT PO SCH (16:00)
[2018-08-25] MEDS: AZITHROMYCIN 500 MG TAB PO SCH (16:00)
[2018-08-25] MEDS: FORMOTEROL FUMARATE 20 MCG/2 ML NEBU INHALATION SCH (19:11)
[2018-08-25] MEDS: LOSARTAN 25 MG TAB PO SCH (21:19)
[2018-08-25] MEDS: MELATONIN 3 MG TABLET PO SCH (21:19)
[2018-08-26] MEDS ORDERED: ACETAMINOPHEN TAB 500 MG TAB PO PRN (02:12)
[2018-08-26] MEDS: IPRATROPIUM-ALBUTEROL 3 ML NEB INHALATION SCH ×4 (07:19→23:11)
[2018-08-26] MEDS: BUDESONIDE 1 MG/2 ML NEBU INHALATION SCH ×2 (07:19→23:11)
[2018-08-26] MEDS: FORMOTEROL FUMARATE 20 MCG/2 ML NEBU INHALATION SCH ×2 (07:19→23:11)
[2018-08-26] MEDS: APIXABAN 2.5 MG TABLET PO SCH ×2 (08:54→22:19)
[2018-08-26] MEDS: ASPIRIN 81 MG PO SCH (08:54)
[2018-08-26] MEDS: METOPROLOL TARTRATE 25 MG TAB PO SCH ×3 (08:54→22:19)
[2018-08-26] MEDS: FAMOTIDINE 20 MG TAB PO SCH (08:54)
[2018-08-26] MEDS: predniSONE 20 MG TAB PO SCH (08:54)
[2018-08-26] MEDS: DIGOXIN 250 MCG TAB PO SCH (08:55)
[2018-08-26] MEDS: FUROSEMIDE 40 MG TAB PO SCH ×2 (08:55→16:52)
[2018-08-26] MEDS: DILTIAZEM CD 180 MG CAP.ER.24H PO SCH (08:55)
[2018-08-26] MEDS: CALCIUM CARBONATE 500 MG CHEWABLE PO SCH (08:55)
[2018-08-26] MEDS: ISOSORBIDE MONONITRATE ER 15 MG TAB PO SCH (08:55)
--- NOTE | 2018-08-26 12:03 | P.PN ---
Subjective Progress Note Date: 08/26/18 87-year-old female was hospitalized at [facility] in July for 9 days for COPD exacerbation and had quite bit stiff lung at the time ended up seen pulmonary and after many days of trial with treatment patient ended up going to [facility] for almost 2 weeks. Patient had left [facility] over 10 days ago and back home still seen home care and visiting nurse when she started having significant change in her wrap respiration with worsening shortness of breath cough wheezes and severe hypoxia ended up becoming restless in the last 24 hours patient made it to the emergency department at [facility] despite doing her up with graft treatment on more regular basis at home not been able to reverse with going on fast patient had some nebulizer treatment along with higher O2 and Solu-Medrol started to feel little bit better she was admitted to the hospital after wrap calling her pulmonary and agreeable with the current plan. Talking the patient apparently does quite bit change in her medication specially in her nebulizer plan she was previously on Brovana which is not on it anymore, also her steroid nebulizer with changed to the distal night but apparently she understood that using it will replace do one nap and has not been doing DuoNeb that often. Also looking in her chest x-ray there is? Off slight infiltrate in the left base which could be any infection. Her influenza was negative at the time. 08/26: Patient is sitting up in bed with mild distress noted. Patient was up to the bathroom to perform personal hygiene per self experience mild shortness of breath with exertion. Patient states that she is otherwise feeling much better and is breathing better today. Reviewed with patient the appropriate home medications she should be on. Instructed patient's the importance of taking her nebulizer treatments as directed. Family was at bedside and verbalized understanding. Patient is anxious to go home. Review of Systems CONSTITUTIONAL: Well-developed mild respiratory distress. EYES: No icterus sclerae, no conjunctivitis. EARS, NOSE, MOUTH, THROAT, and FACE: No sore throat, lymphadenopathy, carotid bruits or deformity. RESPIRATORY: Positive shortness of breath cough wheezes. CARDIOVASCULAR: Positive palpitation, PND and orthopnea with no angina. GASTROINTESTINAL: No Abd pain, Nausea or vomiting, no Diarrhea or constipation, No GI Bleed, no distention or masses. GENITOURINARY: Negative for Hematuria or UTI, no kidney stones. INTEGUMENT/BREAST: Negative for any muscular injury with mild osteoarthritis.. HEMATOLOGIC/LYMPHATIC: Negative for bleed or purpura. MUSCULOSKELTAL: Negative for Myalgia or arthralgia. NEURLOGICAL: No LOC, Sz or syncope, blurred vision dizziness or abnormality.. BEHAVIORAL/PSYCH: Negative. ENDOCRINE: Negative. Objective - Vital Signs Vital signs: Vital Signs Temp 96.9 F L 08/26/18 07:19 Pulse 64 08/26/18 11:54 Resp 20 08/26/18 07:19 BP 181/84 08/26/18 07:19 Pulse Ox 94 L 08/26/18 07:19 Intake & Output 08/25/18 08/26/18 08/26/18 18:59 06:59 18:59 Intake Total 500 Balance 500 Intake: Oral 500 Other: # Voids 1 1 - Exam General Appearance: Alert, cooperative, mild distress, appears stated age. Neck HEENT: Supple, no lymphadenopathy, no thyroid enlargement, no carotid bruits. Lungs: Decreased breath sound bilaterally with fine rhonchi and mild crackle in the left base, positive inspiratory expiratory wheezes. Chest Wall: Decrease expansion with deep inspiration no tenderness and no deformity was found on exam, no costochondral pain or discomfort. Heart: Irregular rate and rhythm, S1, S2 normal, no murmur, rub or gallop. Positive JVD Back: Symmetric, no curvature, ROM normal, no CVA tenderness. Abdomen: Soft, non-tender, bowel sounds active all four quadrants, no masses, no organomegaly. Extremities: Extremities normal, atraumatic, no cyanosis or edema. Pulses: 2+ and symmetric. Skin: Skin color, texture, tugor normal, no rashes or lesions. Neurologic: Alert oriented x3 cranial nerves II through XII intact, no motor deficit, no abnormal balance or gait. - Labs CBC & Chem 7: 08/24/18 16:26 08/24/18 16:26 Assessment and Plan Plan: 1 acute respiratory failure: Combination off COPD exacerbation, bronchitis and early pneumonia and cardiomyopathy with CHF. 2 COPD excessive patient: Most likely with failure to the appropriate management and medication the patient has not been using bronchodilator as frequent. Patient will be on Solu-Medrol, O2, DuoNeb 4 times a day and Pulmicort at least twice a day. Pulmonary consult appreciated. 3 severe purulent tracheal bronchitis and early infiltrate in the left side: Continue azithromycin. 4 A. fib with RVR: Remain on Ahlquist 2.5 g twice a day still on metoprolol 75 mg twice a day heart rate is under control patient still on diltiazem 360 mg daily and digoxin 250 g daily. 5 congestive heart failure: Combination of systolic and diastolic remain on furosemide 40 mg twice a day with metoprolol 75 g twice a day isosorbide and digoxin. 6 hyperglycemia: Continue patient on Accu-Chek with sliding scales coverage at this point. 7 GI prophylaxis: Patient will be on Pepcid 20 mg daily. 8 DVT prophylaxis: Patient will be on heparin 5000 units twice a day. CODE STATUS: Full code. Admit patient to inpatient status for more than 2 nights. Discharge plan: Possibly home tomorrow with also home care Impression and plan of care have been directed as dictated by the signing physician. Gina Gonzalez nurse practitioner acting as scribe for signing physician.
--- NOTE | 2018-08-26 14:32 | P.PN ---
Subjective Progress Note Date: 08/26/18 Principal diagnosis: Acute exacerbation of chronic obstructive pulmonary disease This is a pleasant 87 year-old female patient with known history of advanced COPD with an FEV1 of 39% of predicted we'll came in to the hospital yesterday because of worsening shortness of breath. The patient try to contact our office and her primary care physician. She was unable to get an. She decided to come into the hospital as the patient was having increased dyspnea and cough and chest tightness and wheezing. Her last hospitalization was in July 2018. The patient following that was transferred to [facility] for further rehabilitation where she stayed for a total of 2 weeks and following that she was discharged home. She was discharged home approximately 10 days ago. Her chest x-ray shows some limited infiltration in the lung bases which probably is chronic. No fever. No chills. Monitor mentation. No hemoptysis. No pleurisy. No nausea. No vomiting. No abdominal pain. No altered mentation. Influenza screen was negative. Currently she is doing well. All other blood work is within normal limits. She is tolerating her diet. No other significant events overnight. She was started on a combination of bronchodilators and systemic steroids. He is also on empiric antibiotic coverage with Zithromax on milligrams by mouth daily. The patient is seen again today 08/26/2018 in follow-up on the regular medical floor. She is awake and alert in no acute distress. Currently sitting up at the bedside. Denies any worsening shortness of breath, cough or congestion. Still some dyspnea on minimal exertion. She is maintaining good O2 saturations in the 90s on 3 L/m per nasal cannula. She's afebrile. Slightly hypertensive. She remains on DuoNeb inhalations, Pulmicort and Perforomist inhalations, prednisone, empiric antibiotics in the form of azithromycin. Objective - Vital Signs Vital signs: Vital Signs Temp 96.9 F L 08/26/18 07:19 Pulse 64 08/26/18 11:54 Resp 20 08/26/18 07:19 BP 181/84 08/26/18 07:19 Pulse Ox 94 L 08/26/18 07:19 Intake & Output 08/25/18 08/26/18 08/26/18 18:59 06:59 18:59 Intake Total 500 Balance 500 Intake: Oral 500 Other: # Voids 1 1 - Exam GENERAL EXAM: Alert, active, comfortable in no apparent distress. On 3 L nasal cannula. HEAD: Normocephalic. EYES: Normal reaction of pupils, equal size. NOSE: Clear with pink turbinates. THROAT: No erythema or exudates. NECK: No masses, no JVD. CHEST: No chest wall deformity. LUNGS: Equal air entry with faint end expiratory wheeze, diminished CVS: S1 and S2 normal with no audible murmur, regular rhythm. ABDOMEN: No hepatosplenomegaly, normal bowel sounds, no guarding or rigidity. SPINE: No scoliosis or deformity SKIN: No rashes CENTRAL NERVOUS SYSTEM: No focal deficits, tone is normal in all 4 extremities. EXTREMITIES: There is no peripheral edema. No clubbing, no cyanosis. Peripheral pulses are intact. - Labs CBC & Chem 7: 08/24/18 16:26 08/24/18 16:26 Assessment and Plan Assessment: Assessment: #1. Acute on chronic hypoxic respiratory failure secondary to an acute exacerbation of chronic obstructive pulmonary disease. #2. Chronic atrial fibrillation, the patient is currently on Eliquis for anticoagulation. The patient is also on metoprolol for rate control in conjunction with Cardizem. #3. Advanced COPD with an FEV1 of 39% of predicted and the patient has had previous hospital physician force the same. #4. Chronic hypoxic respiratory failure secondary to above #5. Chronic systolic congestive heart failure, most recent EF on 08/08/2017 45- 50%, and evidence of mild to moderate pulmonary hypertension with right ventricular systolic pressure of 46.5 mmHg. Today echocardiogram showed an improved EF of 55-60%, and no evidence of pulmonary hypertension with right ventricular systolic pressure of 29 mmHg #6. History of dual-chamber pacemaker insertion for fevers history of sinus pause #7. Previous episodes of COPD exacerbation requiring BiPAP for Erika support #8. Hypertension #9. Nicotine dependence, in remission, carries [id number] smoking history Plan The patient was seen and evaluated by Dr. Pascual. She is improved as far as her COPD is concerned but still not quite back to her baseline. She states she hasn't not quite ready to go home. We'll continue the current treatment plan. Increase her activity as tolerated. We'll continue to follow. I, the cosigning physician, performed a history & physical examination of the patient. Lungs sounds with faint end expiratory wheeze. Maintaining good O2 saturations in the 90s on 3 L/m per nasal cannula. I discussed the assessment and plan of care with my nurse practitioner, Yessica Doe. I attest to the above note as dictated by her.
[2018-08-26] MEDS: POTASSIUM CHLORIDE ER 10 MEQ TAB.ER.PRT PO SCH (16:45)
[2018-08-26] MEDS: AZITHROMYCIN 500 MG TAB PO SCH (16:46)
[2018-08-26] MEDS: MELATONIN 3 MG TABLET PO SCH (22:19)
[2018-08-26] MEDS: LOSARTAN 25 MG TAB PO SCH (22:19)
[2018-08-27] MEDS: IPRATROPIUM-ALBUTEROL 3 ML NEB INHALATION SCH ×4 (07:30→20:08)
[2018-08-27] MEDS: BUDESONIDE 1 MG/2 ML NEBU INHALATION SCH ×2 (07:30→20:08)
[2018-08-27] MEDS: FORMOTEROL FUMARATE 20 MCG/2 ML NEBU INHALATION SCH ×2 (07:30→20:09)
[2018-08-27] MEDS: METOPROLOL TARTRATE 25 MG TAB PO SCH ×3 (08:41→22:04)
[2018-08-27] MEDS: FAMOTIDINE 20 MG TAB PO SCH (08:41)
[2018-08-27] MEDS: predniSONE 20 MG TAB PO SCH (08:41)
[2018-08-27] MEDS: ASPIRIN 81 MG PO SCH (08:41)
[2018-08-27] MEDS: ISOSORBIDE MONONITRATE ER 15 MG TAB PO SCH (08:42)
[2018-08-27] MEDS: CALCIUM CARBONATE 500 MG CHEWABLE PO SCH (08:42)
[2018-08-27] MEDS: DIGOXIN 250 MCG TAB PO SCH (08:42)
[2018-08-27] MEDS: DILTIAZEM CD 180 MG CAP.ER.24H PO SCH (08:42)
[2018-08-27] MEDS: APIXABAN 2.5 MG TABLET PO SCH ×2 (08:42→22:03)
[2018-08-27] MEDS: FUROSEMIDE 40 MG TAB PO SCH ×2 (08:42→16:32)
--- NOTE | 2018-08-27 11:39 | P.PN ---
Subjective Progress Note Date: 08/27/18 87-year-old female was hospitalized at [facility] in July for 9 days for COPD exacerbation and had quite bit stiff lung at the time ended up seen pulmonary and after many days of trial with treatment patient ended up going to [facility] for almost 2 weeks. Patient had left [facility] over 10 days ago and back home still seen home care and visiting nurse when she started having significant change in her wrap respiration with worsening shortness of breath cough wheezes and severe hypoxia ended up becoming restless in the last 24 hours patient made it to the emergency department at [facility] despite doing her up with graft treatment on more regular basis at home not been able to reverse with going on fast patient had some nebulizer treatment along with higher O2 and Solu-Medrol started to feel little bit better she was admitted to the hospital after wrap calling her pulmonary and agreeable with the current plan. Talking the patient apparently does quite bit change in her medication specially in her nebulizer plan she was previously on Brovana which is not on it anymore, also her steroid nebulizer with changed to the distal night but apparently she understood that using it will replace do one nap and has not been doing DuoNeb that often. Also looking in her chest x-ray there is? Off slight infiltrate in the left base which could be any infection. Her influenza was negative at the time. 08/26: Patient is sitting up in bed with mild distress noted. Patient was up to the bathroom to perform personal hygiene per self experience mild shortness of breath with exertion. Patient states that she is otherwise feeling much better and is breathing better today. Reviewed with patient the appropriate home medications she should be on. Instructed patient's the importance of taking her nebulizer treatments as directed. Family was at bedside and verbalized understanding. Patient is anxious to go home. 08/27: In the night patient experienced some confusion patient felt that she did not receive any of her medications and attempted to take her home medications that she brought with her. The home medications were removed from her room. At this time patient is resting comfortably in bed without any distress. Patient is alert and oriented 3 and able to follow commands. Patient states that she is feeling better and is anxious to go home. Patient felt that she should go home rather than to a rehab facility. Review of Systems CONSTITUTIONAL: Well-developed no acute respiratory distress. EYES: No icterus sclerae, no conjunctivitis. EARS, NOSE, MOUTH, THROAT, and FACE: No sore throat, lymphadenopathy, carotid bruits or deformity. RESPIRATORY: Positive shortness of breath reports cough denies wheezes. CARDIOVASCULAR: Positive palpitation, PND and orthopnea with no angina. GASTROINTESTINAL: No Abd pain, Nausea or vomiting, no Diarrhea or constipation, No GI Bleed, no distention or masses. GENITOURINARY: Negative for Hematuria or UTI, no kidney stones. INTEGUMENT/BREAST: Negative for any muscular injury with mild osteoarthritis.. HEMATOLOGIC/LYMPHATIC: Negative for bleed or purpura. MUSCULOSKELTAL: Negative for Myalgia or arthralgia. NEURLOGICAL: No LOC, Sz or syncope, blurred vision dizziness or abnormality.. BEHAVIORAL/PSYCH: Negative. ENDOCRINE: Negative. Objective - Vital Signs Vital signs: Vital Signs Temp 97.5 F L 08/27/18 07:06 Pulse 62 08/27/18 11:33 Resp 18 08/27/18 07:06 BP 159/63 08/27/18 07:06 Pulse Ox 99 08/27/18 07:30 Intake & Output 08/26/18 08/27/18 08/27/18 18:59 06:59 18:59 Intake Total 250 200 Balance 250 200 Intake: Oral 250 200 Other: # Voids 1 1 - Exam General Appearance: Alert, cooperative, no acute distress, appears stated age. Neck HEENT: Supple, no lymphadenopathy, no thyroid enlargement, no carotid bruits. Lungs: Decreased breath sound bilaterally with fine rhonchi and mild crackle in the left base, positive inspiratory expiratory wheezes. Chest Wall: Decrease expansion with deep inspiration no tenderness and no deformity was found on exam, no costochondral pain or discomfort. Heart: Irregular rate and rhythm, S1, S2 normal, no murmur, rub or gallop. Positive JVD Back: Symmetric, no curvature, ROM normal, no CVA tenderness. Abdomen: Soft, non-tender, bowel sounds active all four quadrants, no masses, no organomegaly. Extremities: Extremities normal, atraumatic, no cyanosis or edema. Pulses: 2+ and symmetric. Skin: Skin color, texture, tugor normal, no rashes or lesions. Neurologic: Alert oriented x3 cranial nerves II through XII intact, no motor deficit, no abnormal balance or gait. - Labs CBC & Chem 7: 08/24/18 16:26 08/24/18 16:26 Assessment and Plan Plan: 1 acute respiratory failure: Combination off COPD exacerbation, bronchitis and early pneumonia and cardiomyopathy with CHF. 2 COPD excessive patient: Most likely with failure to the appropriate management and medication the patient has not been using bronchodilator as frequent. Patient will be on Solu-Medrol, O2, DuoNeb 4 times a day and Pulmicort at least twice a day. Pulmonary consult appreciated. 3 severe purulent tracheal bronchitis and early infiltrate in the left side: Continue azithromycin. 4 A. fib with RVR: Remain on Ahlquist 2.5 g twice a day still on metoprolol 75 mg twice a day heart rate is under control patient still on diltiazem 360 mg daily and digoxin 250 g daily. 5 congestive heart failure: Combination of systolic and diastolic remain on furosemide 40 mg twice a day with metoprolol 75 g twice a day isosorbide and digoxin. 6 hyperglycemia: Continue patient on Accu-Chek with sliding scales coverage at this point. 7. Confusion possibly associated with steroid usage, patient is currently on oral steroids 8 GI prophylaxis: Patient will be on Pepcid 20 mg daily. 9 DVT prophylaxis: Patient will be on heparin 5000 units twice a day. CODE STATUS: Full code. Admit patient to inpatient status for more than 2 nights. Discharge plan: Possibly home Tuesday with also home care Impression and plan of care have been directed as dictated by the signing physician. Gina Gonzalez nurse practitioner acting as scribe for signing physician.
--- NOTE | 2018-08-27 14:54 | P.PN ---
Subjective Progress Note Date: 08/27/18 This is a pleasant 87 year-old female patient with known history of advanced COPD with an FEV1 of 39% of predicted we'll came in to the hospital yesterday because of worsening shortness of breath. The patient try to contact our office and her primary care physician. She was unable to get an. She decided to come into the hospital as the patient was having increased dyspnea and cough and chest tightness and wheezing. Her last hospitalization was in July 2018. The patient following that was transferred to [facility] for further rehabilitation where she stayed for a total of 2 weeks and following that she was discharged home. She was discharged home approximately 10 days ago. Her chest x-ray shows some limited infiltration in the lung bases which probably is chronic. No fever. No chills. Monitor mentation. No hemoptysis. No pleurisy. No nausea. No vomiting. No abdominal pain. No altered mentation. Influenza screen was negative. Currently she is doing well. All other blood work is within normal limits. She is tolerating her diet. No other significant events overnight. She was started on a combination of bronchodilators and systemic steroids. He is also on empiric antibiotic coverage with Zithromax on milligrams by mouth daily. The patient is seen again today 08/26/2018 in follow-up on the regular medical floor. She is awake and alert in no acute distress. Currently sitting up at the bedside. Denies any worsening shortness of breath, cough or congestion. Still some dyspnea on minimal exertion. She is maintaining good O2 saturations in the 90s on 3 L/m per nasal cannula. She's afebrile. Slightly hypertensive. She remains on DuoNeb inhalations, Pulmicort and Perforomist inhalations, prednisone, empiric antibiotics in the form of azithromycin. On today's evaluation of 08/27/2018 the patient is feeling better. She feels that she is recovering from her acute COPD exacerbation. No chest pain. No cough or sputum production. No fever chills or night sweats. She remains on DuoNeb nebulized treatments, Pulmicort as present Perforomist and a prednisone burst taper. No other significant events overnight, is ambulating. She is tolerating his diet. Objective - Vital Signs Vital signs: Vital Signs Temp 97.5 F L 08/27/18 07:06 Pulse 62 08/27/18 11:33 Resp 18 08/27/18 07:06 BP 159/63 08/27/18 07:06 Pulse Ox 99 08/27/18 07:30 Intake & Output 08/26/18 08/27/18 08/27/18 18:59 06:59 18:59 Intake Total 250 200 Balance 250 200 Intake: Oral 250 200 Other: # Voids 1 1 - Exam GENERAL EXAM: Alert, active, comfortable in no apparent distress. On 3 L nasal cannula. HEAD: Normocephalic. EYES: Normal reaction of pupils, equal size. NOSE: Clear with pink turbinates. THROAT: No erythema or exudates. NECK: No masses, no JVD. CHEST: No chest wall deformity. LUNGS: Equal air entry with faint end expiratory wheeze, diminished CVS: S1 and S2 normal with no audible murmur, regular rhythm. ABDOMEN: No hepatosplenomegaly, normal bowel sounds, no guarding or rigidity. SPINE: No scoliosis or deformity SKIN: No rashes CENTRAL NERVOUS SYSTEM: No focal deficits, tone is normal in all 4 extremities. EXTREMITIES: There is no peripheral edema. No clubbing, no cyanosis. Peripheral pulses are intact. - Labs CBC & Chem 7: 08/24/18 16:26 08/24/18 16:26 Assessment and Plan Plan: #1. Acute on chronic hypoxic respiratory failure secondary to an acute exacerbation of chronic obstructive pulmonary disease. #2. Chronic atrial fibrillation, the patient is currently on Eliquis for anticoagulation. The patient is also on metoprolol for rate control in conjunction with Cardizem. #3. Advanced COPD with an FEV1 of 39% of predicted and the patient has had previous hospital physician force the same. #4. Chronic hypoxic respiratory failure secondary to above #5. Chronic systolic congestive heart failure, most recent EF on 08/08/2017 45- 50%, and evidence of mild to moderate pulmonary hypertension with right ventricular systolic pressure of 46.5 mmHg. Today echocardiogram showed an improved EF of 55-60%, and no evidence of pulmonary hypertension with right ventricular systolic pressure of 29 mmHg #6. History of dual-chamber pacemaker insertion for fevers history of sinus pause #7. Previous episodes of COPD exacerbation requiring BiPAP for Erika support #8. Hypertension #9. Nicotine dependence, in remission, carries [id number] smoking history Plan Continue the current treatment. Discharge in a.m. Pulmonary status is stable. COPD is recovering from his exacerbation the patient is on a prednisone burst taper. We'll follow on outpatient basis.
[2018-08-27] MEDS: AZITHROMYCIN 500 MG TAB PO SCH (16:32)
[2018-08-27] MEDS: POTASSIUM CHLORIDE ER 10 MEQ TAB.ER.PRT PO SCH (16:32)
[2018-08-27] MEDS: MELATONIN 3 MG TABLET PO SCH (22:03)
[2018-08-27] MEDS: LOSARTAN 25 MG TAB PO SCH (22:05)
[2018-08-27 23:21] VITALS: RESP 17
[2018-08-28 06:34] VITALS: BP 152/77; TEMP 96.8
[2018-08-28] MEDS: FORMOTEROL FUMARATE 20 MCG/2 ML NEBU INHALATION SCH (07:09)
[2018-08-28] MEDS: IPRATROPIUM-ALBUTEROL 3 ML NEB INHALATION SCH ×2 (07:09→11:09)
[2018-08-28] MEDS: BUDESONIDE 1 MG/2 ML NEBU INHALATION SCH (07:09)
[2018-08-28] MEDS: FUROSEMIDE 40 MG TAB PO SCH (10:40)
[2018-08-28] MEDS: APIXABAN 2.5 MG TABLET PO SCH (10:40)
[2018-08-28] MEDS: AZITHROMYCIN 500 MG TAB PO SCH (10:40)
[2018-08-28] MEDS: predniSONE 20 MG TAB PO SCH (10:40)
[2018-08-28] MEDS: DIGOXIN 250 MCG TAB PO SCH (10:40)
[2018-08-28] MEDS: FAMOTIDINE 20 MG TAB PO SCH (10:40)
[2018-08-28] MEDS: DILTIAZEM CD 180 MG CAP.ER.24H PO SCH (10:40)
[2018-08-28] MEDS: METOPROLOL TARTRATE 25 MG TAB PO SCH (10:40)
[2018-08-28] MEDS: ISOSORBIDE MONONITRATE ER 15 MG TAB PO SCH (10:40)
[2018-08-28] MEDS: ASPIRIN 81 MG PO SCH (10:43)
[2018-08-28] MEDS: CALCIUM CARBONATE 500 MG CHEWABLE PO SCH (11:06)
[2018-08-28 11:20] VITALS: PULSE 68
--- NOTE | 2018-08-28 15:53 | P.PN ---
Subjective Progress Note Date: 08/28/18 Principal diagnosis: acute on chronic hypoxic respiratory failure secondary to an acute exacerbation of COPD This is a pleasant 87 year-old female patient with known history of advanced COPD with an FEV1 of 39% of predicted we'll came in to the hospital yesterday because of worsening shortness of breath. The patient try to contact our office and her primary care physician. She was unable to get an. She decided to come into the hospital as the patient was having increased dyspnea and cough and chest tightness and wheezing. Her last hospitalization was in July 2018. The patient following that was transferred to [facility] for further rehabilitation where she stayed for a total of 2 weeks and following that she was discharged home. She was discharged home approximately 10 days ago. Her chest x-ray shows some limited infiltration in the lung bases which probably is chronic. No fever. No chills. Monitor mentation. No hemoptysis. No pleurisy. No nausea. No vomiting. No abdominal pain. No altered mentation. Influenza screen was negative. Currently she is doing well. All other blood work is within normal limits. She is tolerating her diet. No other significant events overnight. She was started on a combination of bronchodilators and systemic steroids. He is also on empiric antibiotic coverage with Zithromax on milligrams by mouth daily. The patient is seen again today 08/26/2018 in follow-up on the regular medical floor. She is awake and alert in no acute distress. Currently sitting up at the bedside. Denies any worsening shortness of breath, cough or congestion. Still some dyspnea on minimal exertion. She is maintaining good O2 saturations in the 90s on 3 L/m per nasal cannula. She's afebrile. Slightly hypertensive. She remains on DuoNeb inhalations, Pulmicort and Perforomist inhalations, prednisone, empiric antibiotics in the form of azithromycin. On today's evaluation of 08/27/2018 the patient is feeling better. She feels that she is recovering from her acute COPD exacerbation. No chest pain. No cough or sputum production. No fever chills or night sweats. She remains on DuoNeb nebulized treatments, Pulmicort as present Perforomist and a prednisone burst taper. No other significant events overnight, is ambulating. She is tolerating his diet. On 08/28/2018 patient seen in follow-up on medical surgical floor. She is resting comfortably in bed, no acute distress, denies any chest pain, palpitations, she is currently in sinus rhythm, she states her breathing is improving, lung sounds are diminished to auscultation, no significant wheezing or rhonchi, no chest congestion, currently on 3 L per nasal cannula and her pulse ox is 97%. She has been ambulating, tolerating activity well, and transition to oral prednisone burst taper, she is on nebulized bronchodilators, she is feeling better, she has been cleared for discharge home by the attending physician, she'll need follow-up with Dr. St in the office in one week. Objective - Vital Signs Vital signs: Vital Signs Temp 96.8 F L 08/28/18 06:33 Pulse 68 08/28/18 11:20 Resp 17 08/28/18 10:46 BP 152/77 08/28/18 06:33 Pulse Ox 97 08/28/18 07:12 Intake & Output 08/27/18 08/28/18 08/28/18 18:59 06:59 18:59 Intake Total 200 400 Balance 200 400 Intake: Oral 200 400 Other: # Voids 4 2 2 - Exam GENERAL EXAM: Alert, pleasant, 87-year-old white female, on 3 L per nasal cannula comfortable in no apparent distress. HEAD: Normocephalic/atraumatic. EYES: Normal reaction of pupils, equal size. Conjunctiva pink, sclera white. NOSE: Clear with pink turbinates. THROAT: No erythema or exudates. NECK: No masses, no JVD, no thyroid enlargement, no adenopathy. CHEST: No chest wall deformity. Symmetrical expansion. LUNGS: Equal air entry with no crackles, wheeze, rhonchi or dullness. CVS: Regular rate and rhythm, normal S1 and S2, no gallops, no murmurs, no rubs ABDOMEN: Soft, nontender. No hepatosplenomegaly, normal bowel sounds, no guarding or rigidity. EXTREMITIES: No clubbing, no edema, no cyanosis, 2+ pulses and upper and lower extremities. MUSCULOSKELETAL: Muscle strength and tone normal. SPINE: No scoliosis or deformity SKIN: No rashes CENTRAL NERVOUS SYSTEM: Alert and oriented -3. No focal deficits, tone is normal in all 4 extremities. PSYCHIATRIC: Alert and oriented -3. Appropriate affect. Intact judgment and insight. - Labs CBC & Chem 7: 08/24/18 16:26 08/24/18 16:26 Assessment and Plan Plan: Assessment: #1. Acute on chronic hypoxic respiratory failure secondary to an acute exacerbation of chronic obstructive pulmonary disease. #2. Chronic atrial fibrillation, the patient is currently on Eliquis for anticoagulation. The patient is also on metoprolol for rate control in conjunction with Cardizem. #3. Advanced COPD with an FEV1 of 39% of predicted and the patient has had previous hospital physician force the same. #4. Chronic hypoxic respiratory failure secondary to above #5. Chronic systolic congestive heart failure, most recent EF on 08/08/2017 45- 50%, and evidence of mild to moderate pulmonary hypertension with right ventricular systolic pressure of 46.5 mmHg. Today echocardiogram showed an improved EF of 55-60%, and no evidence of pulmonary hypertension with right ventricular systolic pressure of 29 mmHg #6. History of dual-chamber pacemaker insertion for fevers history of sinus pause #7. Previous episodes of COPD exacerbation requiring BiPAP for Erika support #8. Hypertension #9. Nicotine dependence, in remission, carries [id number] smoking history Plan: From pulmonary perspective patient is stable, she is breathing easier, tolerating ambulation, she is maintaining good oxygenation on 3 L per nasal cannula, needing is improving, she is being discharged home today, she'll need follow-up with Dr. St in the office in one week. I performed a history & physical examination of the patient and discussed their management with my nurse practitioner, Kenna Ervin. I reviewed the nurse practitioner's note and agree with the documented findings and plan of care. Lung sounds are positive for diminished breath sounds throughout the lung cotto. The findings and the impression was discussed with the patient. I attest to the documentation by the nurse practitioner. Time with Patient: Less than 30
--- NOTE | 2018-08-29 13:24 | P.DS ---
Providers Date of admission: 08/25/18 10:48 Expected date of discharge: 08/28/18 Attending physician: Christian Mittal Consults: 08/24/18 21:08 Consult Physician Routine Consulting Provider: Farideh Pascual Consult Reason/Comments: COPD, PNA Do you want consulting provider notified?: Yes Primary care physician: [facility] Course: 87-year-old female was hospitalized at [facility] in July for 9 days for COPD exacerbation and had quite bit stiff lung at the time ended up seen pulmonary and after many days of trial with treatment patient ended up going to [facility] for almost 2 weeks. Patient had left [facility] over 10 days ago and back home still seen home care and visiting nurse when she started having significant change in her wrap respiration with worsening shortness of breath cough wheezes and severe hypoxia ended up becoming restless in the last 24 hours patient made it to the emergency department at [facility] despite doing her up with graft treatment on more regular basis at home not been able to reverse with going on fast patient had some nebulizer treatment along with higher O2 and Solu-Medrol started to feel little bit better she was admitted to the hospital after wrap calling her pulmonary and agreeable with the current plan. Talking the patient apparently does quite bit change in her medication specially in her nebulizer plan she was previously on Brovana which is not on it anymore, also her steroid nebulizer with changed to the distal night but apparently she understood that using it will replace do one nap and has not been doing DuoNeb that often. Also looking in her chest x-ray there is? Off slight infiltrate in the left base which could be any infection. Her influenza was negative at the time. 08/26: Patient is sitting up in bed with mild distress noted. Patient was up to the bathroom to perform personal hygiene per self experience mild shortness of breath with exertion. Patient states that she is otherwise feeling much better and is breathing better today. Reviewed with patient the appropriate home medications she should be on. Instructed patient's the importance of taking her nebulizer treatments as directed. Family was at bedside and verbalized understanding. Patient is anxious to go home. 08/27: In the night patient experienced some confusion patient felt that she did not receive any of her medications and attempted to take her home medications that she brought with her. The home medications were removed from her room. At this time patient is resting comfortably in bed without any distress. Patient is alert and oriented 3 and able to follow commands. Patient states that she is feeling better and is anxious to go home. Patient felt that she should go home rather than to a rehab facility. 08/28: Patient denies any new complaints. She states that her breathing is much improved since she arrived. Medications have been clarified for home. Patient will be discharged home today in stable condition. Discharge diagnoses: 1 acute on chronic hypoxic respiratory failure on home O2 at 2-3 L secondary to COPD exacerbation 2 COPD exacerbation 3 severe purulent tracheal bronchitis, pneumonia ruled out by pulmonary medicine 4 paroxysmal atrial fibrillation 5 chronic diastolic heart failure 6 hyperglycemia 7. Acute delirium secondary to steroid usage 8. Hypertension Discharge plan: home Impression and plan of care have been directed as dictated by the signing physician. Noelle Gilbert nurse practitioner acting as scribe for signing physician. Patient Condition at Discharge: Fair Plan - Discharge Summary Discharge Rx Participant: No New Discharge Prescriptions: New Azithromycin [Zithromax] 500 mg PO Q24H #3 tab predniSONE 0 mg PO DIRECTED #40 tab Continue Aspirin 81 mg PO DAILY Apixaban [Eliquis] 2.5 mg PO BID tablet Famotidine [Pepcid] 20 mg PO BID Potassium Chloride [Klor-Con 10] 10 meq PO DAILY@1600 Calcium Carbonate [Calcium] 600 mg PO DAILY Isosorbide Mononitrate ER [Imdur] 15 mg PO DAILY #30 dose Furosemide [Lasix] 40 mg PO BID@0900,1600 tab Metoprolol Tartrate [Lopressor] 75 mg PO TID tab Losartan [Cozaar] 25 mg PO HS #0 Melatonin 3 mg PO HS Digoxin [Lanoxin] 250 mcg PO DAILY #30 tab Diltiazem Cd [Cardizem CD] 360 mg PO DAILY #60 cap.er.24h Ipratropium-Albuterol Nebulize [Duoneb 0.5 mg-3 mg/3 ml Soln] 3 ml INHALATION RT-Q4H PRN ampul.neb PRN Reason: Shortness Of Breath Budesonide [Pulmicort] 1 mg INHALATION RT-BID nebu Arformoterol Tartrate [Brovana] 15 mcg INHALATION RT-BID #60 nebu Discharge Medication List Aspirin 81 mg PO DAILY 01/18/15 [History] Apixaban [Eliquis] 2.5 mg PO BID tablet 08/11/17 [Rx] Famotidine [Pepcid] 20 mg PO BID 10/23/17 [History] Potassium Chloride [Klor-Con 10] 10 meq PO DAILY@1600 10/23/17 [History] Calcium Carbonate [Calcium] 600 mg PO DAILY 06/01/18 [History] Isosorbide Mononitrate ER [Imdur] 15 mg PO DAILY #30 dose 06/03/18 [Rx] Furosemide [Lasix] 40 mg PO BID@0900,1600 tab 06/23/18 [Rx] Losartan [Cozaar] 25 mg PO HS #0 06/23/18 [Rx] Metoprolol Tartrate [Lopressor] 75 mg PO TID tab 06/23/18 [Rx] Melatonin 3 mg PO HS 07/10/18 [History] Arformoterol Tartrate [Brovana] 15 mcg INHALATION RT-BID #60 nebu 07/19/18 [Rx] Budesonide [Pulmicort] 1 mg INHALATION RT-BID nebu 07/19/18 [Rx] Digoxin [Lanoxin] 250 mcg PO DAILY #30 tab 07/19/18 [Rx] Diltiazem Cd [Cardizem CD] 360 mg PO DAILY #60 cap.er.24h 07/19/18 [Rx] Ipratropium-Albuterol Nebulize [Duoneb 0.5 mg-3 mg/3 ml Soln] 3 ml INHALATION RT -Q4H PRN ampul.neb 07/19/18 [Rx] Azithromycin [Zithromax] 500 mg PO Q24H #3 tab 08/28/18 [Rx] predniSONE 0 mg PO DIRECTED #40 tab 08/28/18 [Rx] Follow up Appointment(s)/Referral(s): Shruti Plasencia MD [Primary Care Provider] - 08/31/18 11:15 am Phoenix Gutiérrez MD [STAFF PHYSICIAN] - 09/05/18 2:30 pm Discharge Disposition: HOME SELF-CARE
== END 2018-08-28 14:05 | disposition home or self-care (01) | DRG 190 ==
LOC: EC 15:37 → 4MS4W 18:24 → OBSVTOIN 08-25 10:48
PROVIDERS: ADMIT Internal Medicine Geriatric Medicine; ATTEND Internal Medicine Geriatric Medicine
DX: J44.1 Chronic obstructive pulmonary disease with (acute) exacerbation (principal); J96.21 Acute and chronic respiratory failure with hypoxia; I50.32 Chronic diastolic (congestive) heart failure; I42.9 Cardiomyopathy, unspecified; I27.20 Pulmonary hypertension, unspecified; I48.0 Paroxysmal atrial fibrillation; I11.0 Hypertensive heart disease with heart failure; R73.9 Hyperglycemia, unspecified; T38.0X5A Adverse effect of glucocorticoids and synthetic analogues, initial encounter; I25.2 Old myocardial infarction; M19.90 Unspecified osteoarthritis, unspecified site; H35.30 Unspecified macular degeneration; F17.201 Nicotine dependence, unspecified, in remission; Z99.81 Dependence on supplemental oxygen; Z79.82 Long term (current) use of aspirin; Z79.01 Long term (current) use of anticoagulants; Z79.51 Long term (current) use of inhaled steroids; Z79.899 Other long term (current) drug therapy; Z85.828 Personal history of other malignant neoplasm of skin; Z95.0 Presence of cardiac pacemaker; Z98.42 Cataract extraction status, left eye; Z98.41 Cataract extraction status, right eye; Z88.2 Allergy status to sulfonamides; Z91.013 Allergy to seafood; Z82.49 Family history of ischemic heart disease and other diseases of the circulatory system; Z80.0 Family history of malignant neoplasm of digestive organs
CPT/HCPCS: 36415; 71046; 80053; 81001; 83735; 83880; 84484; 85025; 85610; 85730; 87502; 93005; 94640; 94760; 99285

== ENCOUNTER 2019-06-20 13:58 | Emergency (ER) | payer MEDICARE ==
[2019-06-20 14:25] VITALS: PULSE 60
[2019-06-20] MEDS ORDERED: MECLIZINE 12.5 MG TAB PO STA (15:43)
[2019-06-20 16:01] LABS: Appearance,Urine Clear (Clear); Basophils # (A) 0.1 k/uL (0-0.2); Basophils % (A) 1 %; Bilirubin,Urine Negative (Negative); Blood,Urine Negative (Negative); Color,Urine Yellow; Eosinophils # (A) 0.2 k/uL (0-0.7); Eosinophils % (A) 2 %; Glucose,Urine (UA) Negative (Negative); HCT 41.3 % (34.0-46.0); HGB 13.9 gm/dL (11.4-16.0); Ketones,Urine Negative (Negative); Leukocyte Esterase,Urine Negative (Negative); Lymphocytes # (A) 1.6 k/uL (1.0-4.8); Lymphocytes % (A) 18 %; MCH 30.9 pg (25.0-35.0); MCHC 33.7 g/dL (31.0-37.0); MCV 91.8 fL (80.0-100.0); Mean Platelet Volume 7.3; Monocytes # (A) 0.4 k/uL (0-1.0); Monocytes % (A) 5 %; Neutrophils # (A) 6.5 k/uL (1.3-7.7); Neutrophils % (A) 73 %; Nitrite,Urine Negative (Negative); PH, Urine 6.5 (5.0-8.0); Platelet Count 231 k/uL (150-450); Protein,Urine Negative (Negative); RDW 13.8 % (11.5-15.5); Specific Gravity,Urine 1.009 (1.001-1.035); Urobilinogen,Urine <2.0 mg/dL (<2.0); WBC 8.9 k/uL (3.8-10.6)
[2019-06-20 16:07] LABS: Prothrombin Time 10.3 sec (9.0-12.0)
[2019-06-20 16:18] LABS: Albumin 4.1 g/dL (3.5-5.0); Calcium 9.4 mg/dL (8.4-10.2); Total Bilirubin 0.8 mg/dL (0.2-1.3); Total Protein 6.4 g/dL (6.3-8.2)
--- NOTE | 2019-06-20 16:19 | CT ---
EXAMINATION TYPE: CT brain wo con DATE OF EXAM: 06/20/2019 COMPARISON: 04/22/2017 INDICATION: Dizziness today DLP: 1143.4 mGycm, Automated exposure control for dose reduction was used. CONTRAST: None CT of the brain is performed utilizing 3 mm thick sections through the posterior fossa and 3 mm thick sections through the remaining calvarium. Study is performed within 24 hours of arrival to the hosp [facility]. No abnormal hyperdensity is present to suggest an acute intracranial hemorrhage. No mass lesion is evident. No acute infarcts are evident. Periventricular white matter hypodensity is present, likely on the bas is of chronic white matter ischemic changes. There is some prominence of the extra-axial space in the anterior right middle cranial fossa could be an underlying arachnoid cyst Ventricles and sulci are appropriate for the patient age. Paranasal sinuses and mastoid air cells within the [id number] are clear. IMPRESSIONS: 1. Periventricular white matter ischemic type changes.
--- NOTE | 2019-06-20 16:24 | XR ---
EXAMINATION TYPE: XR chest 2V DATE OF EXAM: 06/20/2019 COMPARISON: 08/24/2018 INDICATION: Dizziness TECHNIQUE: Frontal and lateral views of the chest are obtained. FINDINGS: The heart size is normal. The pulmonary vasculature is normal. Mild left lower lobe infiltrate is present.. IMPRESSION: 1. Mild left lower lobe infiltrate. Correlate for atelectasis or pneumonia.
--- NOTE | 2019-06-20 17:21 | ED ---
Dizziness HPI - General Chief Complaint: Dizziness Stated Complaint: Dizzy Time Seen by Provider: 06/20/19 14:20 Source: patient, family Mode of arrival: wheelchair Limitations: no limitations - History of Present Illness Initial Comments: The patient is an 88-year-old female has no history of A. fib and COPD presents emergency Department with reported vertiginous symptoms. States she does have a history of vertigo. States that today she had several episodes only lasted a short period of time for which she felt the room was spinning on her. Because she had repetitive symptoms she did call her daughter and had her bring her to the emergency room for evaluation. States that they're worse with positional changes. Denies any recent head trauma. Denies any visual changes. No unilateral numbness or weakness. Denies any headaches. States that she is currently symptomatically at this time. No confusion or slurred speech with the patient. Fevers or chills or recent illnesses. There are no alleviating, precipitating or modifying factors - Related Data Home Medications Medication Instructions Recorded Confirmed Aspirin 81 mg PO DAILY 01/18/15 08/24/18 Famotidine [Pepcid] 20 mg PO BID 10/23/17 08/24/18 Potassium Chloride [Klor-Con 10] 10 meq PO DAILY@1600 10/23/17 08/24/18 Calcium Carbonate [Calcium] 600 mg PO DAILY 06/01/18 08/24/18 Melatonin 3 mg PO HS 07/10/18 08/24/18 Previous Rx's Medication Instructions Recorded Apixaban [Eliquis] 2.5 mg PO BID tablet 08/11/17 Isosorbide Mononitrate ER [Imdur] 15 mg PO DAILY #30 dose 06/03/18 Furosemide [Lasix] 40 mg PO BID@0900,1600 tab 06/23/18 Losartan [Cozaar] 25 mg PO HS #0 06/23/18 Metoprolol Tartrate [Lopressor] 75 mg PO TID tab 06/23/18 Arformoterol Tartrate [Brovana] 15 mcg INHALATION RT-BID #60 nebu 07/19/18 Budesonide [Pulmicort] 1 mg INHALATION RT-BID nebu 07/19/18 Digoxin [Lanoxin] 250 mcg PO DAILY #30 tab 07/19/18 Diltiazem Cd [Cardizem CD] 360 mg PO DAILY #60 cap.er.24h 07/19/18 Ipratropium-Albuterol Nebulize 3 ml INHALATION RT-Q4H PRN 07/19/18 [Duoneb 0.5 mg-3 mg/3 ml Soln] ampul.neb Azithromycin [Zithromax] 500 mg PO Q24H #3 tab 08/28/18 predniSONE 0 mg PO DIRECTED #40 tab 08/28/18 Allergies Allergy/AdvReac Type Severity Reaction Status Date / Time shellfish derived [Shellfish] Allergy Nausea & Verified 08/24/18 16:11 Vomiting & Diarrhea Sulfa (Sulfonamide Allergy Unknown Verified 08/24/18 16:11 Antibiotics) Childhood Review of Systems ROS Statement: Those systems with pertinent positive or pertinent negative responses have been documented in the HPI. ROS Other: All systems not noted in ROS Statement are negative. Past Medical History Past Medical History: Atrial Fibrillation, Cancer, Heart Failure, COPD, Hypertension, Osteoarthritis (OA) Additional Past Medical History / Comment(s): skin cancer on scalp, macular degeneration History of Any Multi-Drug Resistant Organisms: None Reported Past Surgical History: Hernia Repair, Pacemaker, Tonsillectomy Additional Past Surgical History / Comment(s): skin cancer removed from scalp, andrew cataracts Past Anesthesia/Blood Transfusion Reactions: No Reported Reaction Type of Cardiac Device: Permanent Pacemaker Device Placement Date:: 2017 Past Psychological History: No Psychological Hx Reported Smoking Status: Former smoker Past Alcohol Use History: Occasional Past Drug Use History: None Reported - Past Family History Father Additional Family Medical History / Comment(s): Father at age 91 with history of heart disease. Mother Family Medical History: Cancer Additional Family Medical History / Comment(s): Mother at age 87 from pancreatic cancer. Brother(s) Additional Family Medical History / Comment(s): Patient has 1 brother that at age 93 from liver cancer. Sister(s) Additional Family Medical History / Comment(s): Patient has 2 sisters with no major medical problems. Daughter(s) Additional Family Medical History / Comment(s): Patient has a total of 4 children, 3 daughters and 1 son. One daughter at a young age and a motor vehicle accident. General Exam Limitations: no limitations General appearance: alert, in no apparent distress Head exam: Present: atraumatic, normocephalic, normal inspection Eye exam: Present: normal appearance, PERRL, EOMI. Absent: scleral icterus, conjunctival injection, periorbital swelling ENT exam: Present: normal exam, mucous membranes moist Neck exam: Present: normal inspection. Absent: tenderness, meningismus, l ymphadenopathy Respiratory exam: Present: normal lung sounds bilaterally. Absent: respiratory distress, wheezes, rales, rhonchi, stridor Cardiovascular Exam: Present: regular rate, normal rhythm, normal heart sounds. Absent: systolic murmur, diastolic murmur, rubs, gallop, clicks GI/Abdominal exam: Present: soft, normal bowel sounds. Absent: distended, tenderness, guarding, rebound, rigid Extremities exam: Present: normal inspection, full ROM, normal capillary refill. Absent: tenderness, pedal edema, joint swelling, calf tenderness Back exam: Present: normal inspection Neurological exam: Present: alert, oriented X3, CN II-XII intact Psychiatric exam: Present: normal affect, normal mood Skin exam: Present: warm, dry, intact, normal color. Absent: rash Course Vital Signs 06/20/19 06/20/19 06/20/19 14:23 16:15 18:39 Temperature 97.8 F 97.1 F L Pulse Rate 60 60 60 Respiratory 20 18 20 Rate Blood Pressure 136/76 162/69 166/73 O2 Sat by Pulse 94 L 98 94 L Oximetry EKG Findings - EKG Comments: EKG Findings:: EKG demonstrates a atrial paced rhythm with a prolonged KS interval. Rate of 60. KS interval 292. QRS 90. QTC 424. No acute ST segment elevations or depressions concerning for ischemic changes. Pacemaker captures appropriately Medical Decision Making - Medical Decision Making Upon arrival the patient is placed in room 19. A thorough history and physical exam was performed interpreted by me is established. The patient is a laboratory studies conducted. It CBC is unremarkable. PT/INR normal. CMP shows a creatinine of 1.08 glucose is elevated at 205. AST 43, LD50, troponin negative. Urinalysis is negative. CT of the patient's brain demonstrates. Ventricular white matter ischemic type change is chest x-ray demonstrates mild left lower lobe infiltrate. Discuss results with patient. She does not have any signs concerning for pneumonia. I discussed diagnosis, differential treatment options. I did augment hospital admission for the patient's symptoms however the patient refused. She is of sound mind to making her own decisions. She requested at this time as she is symptom free. She is to follow-up with primary care physician in 2-4 days. Return to the emergency room for any new or worsening symptoms or if she does agree to hospital admission. Daughter is at bedside and treatment plan. Patient was then discharged - Lab Data Result diagrams: 06/20/19 15:32 06/20/19 15:32 Lab Results 06/20/19 06/20/19 06/20/19 Range/Units 15:32 15:32 15:32 WBC 8.9 (3.8-10.6) k/uL RBC 4.50 (3.80-5.40) m/uL Hgb 13.9 (11.4-16.0) gm/dL Hct 41.3 (34.0-46.0) % MCV 91.8 (80.0-100.0) fL MCH 30.9 (25.0-35.0) pg MCHC 33.7 (31.0-37.0) g/dL RDW 13.8 (11.5-15.5) % Plt Count 231 (150-450) k/uL Neutrophils % 73 % Lymphocytes % 18 % Monocytes % 5 % Eosinophils % 2 % Basophils % 1 % Neutrophils # 6.5 (1.3-7.7) k/uL Lymphocytes # 1.6 (1.0-4.8) k/uL Monocytes # 0.4 (0-1.0) k/uL Eosinophils # 0.2 (0-0.7) k/uL Basophils # 0.1 (0-0.2) k/uL PT (9.0-12.0) sec INR (<1.2) Sodium 134 L (137-145) mmol/L Potassium 5.0 (3.5-5.1) mmol/L Chloride 97 L (98-107) mmol/L Carbon Dioxide 28 (22-30) mmol/L Anion Gap 9 mmol/L BUN 22 H (7-17) mg/dL Creatinine 1.08 H (0.52-1.04) mg/dL Est GFR (CKD-EPI)AfAm 53 (>60 ml/min/1.73 sqM) Est GFR (CKD-EPI)NonAf 46 (>60 ml/min/1.73 sqM) Glucose 205 H (74-99) mg/dL Calcium 9.4 (8.4-10.2) mg/dL Total Bilirubin 0.8 (0.2-1.3) mg/dL AST 43 H (14-36) U/L ALT 50 H (4-34) U/L Alkaline Phosphatase 43 (38-126) U/L Troponin I (0.000-0.034) ng/mL Total Protein 6.4 (6.3-8.2) g/dL Albumin 4.1 (3.5-5.0) g/dL Urine Color Yellow Urine Appearance Clear (Clear) Urine pH 6.5 (5.0-8.0) Ur Specific [place] 1.009 (1.001-1.035) Urine Protein Negative (Negative) Urine Glucose (UA) Negative (Negative) Urine Ketones Negative (Negative) Urine Blood Negative (Negative) Urine Nitrite Negative (Negative) Urine Bilirubin Negative (Negative) Urine Urobilinogen <2.0 (<2.0) mg/dL Ur Leukocyte Esterase Negative (Negative) 06/20/19 06/20/19 Range/Units 15:32 15:32 WBC (3.8-10.6) k/uL RBC (3.80-5.40) m/uL Hgb (11.4-16.0) gm/dL Hct (34.0-46.0) % MCV (80.0-100.0) fL MCH (25.0-35.0) pg MCHC (31.0-37.0) g/dL RDW (11.5-15.5) % Plt Count (150-450) k/uL Neutrophils % % Lymphocytes % % Monocytes % % Eosinophils % % Basophils % % Neutrophils # (1.3-7.7) k/uL Lymphocytes # (1.0-4.8) k/uL Monocytes # (0-1.0) k/uL Eosinophils # (0-0.7) k/uL Basophils # (0-0.2) k/uL PT 10.3 (9.0-12.0) sec INR 1.0 (<1.2) Sodium (137-145) mmol/L Potassium (3.5-5.1) mmol/L Chloride (98-107) mmol/L Carbon Dioxide (22-30) mmol/L Anion Gap mmol/L BUN (7-17) mg/dL Creatinine (0.52-1.04) mg/dL Est GFR (CKD-EPI)AfAm (>60 ml/min/1.73 sqM) Est GFR (CKD-EPI)NonAf (>60 ml/min/1.73 sqM) Glucose (74-99) mg/dL Calcium (8.4-10.2) mg/dL Total Bilirubin (0.2-1.3) mg/dL AST (14-36) U/L ALT (4-34) U/L Alkaline Phosphatase (38-126) U/L Troponin I <0.012 (0.000-0.034) ng/mL Total Protein (6.3-8.2) g/dL Albumin (3.5-5.0) g/dL Urine Color Urine Appearance (Clear) Urine pH (5.0-8.0) Ur Specific [place] (1.001-1.035) Urine Protein (Negative) Urine Glucose (UA) (Negative) Urine Ketones (Negative) Urine Blood (Negative) Urine Nitrite (Negative) Urine Bilirubin (Negative) Urine Urobilinogen (<2.0) mg/dL Ur Leukocyte Esterase (Negative) Disposition Clinical Impression: Dizziness Disposition: HOME SELF-CARE Condition: Stable Instructions (If sedation given, give patient instructions): Dizziness (ED) Additional Instructions: Follow up with your primary care doctor in 2-4 days. Return to the emergency room for any new or worsening symptoms Is patient prescribed a controlled substance at d/c from ED?: No Referrals: Phoenix Gutiérrez MD [Primary Care Provider] - 1-2 days Time of Disposition: 17:21
[2019-06-20 18:39] VITALS: BP 166/73; RESP 20; TEMP 97.1
== END 2019-06-20 18:40 | disposition home or self-care (01) ==
LOC: EC 13:58
DX: R42 Dizziness and giddiness (principal); R73.9 Hyperglycemia, unspecified; R90.82 White matter disease, unspecified; R91.8 Other nonspecific abnormal finding of lung field; I48.91 Unspecified atrial fibrillation; M19.90 Unspecified osteoarthritis, unspecified site; Z87.891 Personal history of nicotine dependence; Z88.2 Allergy status to sulfonamides; Z91.013 Allergy to seafood; Z79.82 Long term (current) use of aspirin; Z79.899 Other long term (current) drug therapy; Z85.828 Personal history of other malignant neoplasm of skin; Z95.0 Presence of cardiac pacemaker; Z98.890 Other specified postprocedural states
CPT/HCPCS: 36415; 70450; 71046; 80053; 81003; 84484; 85025; 85610; 93005; 99284

== ENCOUNTER → 2019-07-26 | Outpatient (CLI) | payer MEDICARE ==
--- NOTE | 2019-07-26 15:10 | CT ---
EXAMINATION TYPE: CT lumbar spine wo con DATE OF EXAM: 07/26/2019 COMPARISON: None HISTORY: Lower back pain radiating to left leg. CT DLP: 891.[address] of the lumbar spine was performed. Bone and soft tissue window settings are submitted as well as coronal and sagittal reconstructions. L1-L2: Normal disc space height. No disc herniation protrusion or central stenosis. No facet joint arthropathy. No evidence for foraminal encroachment. L2-L3: Normal disc space height. No disc herniation protrusion or central stenosis. No facet joint arthropathy. No evidence for foraminal encroachment. L3-L4: There is evidence of vacuum disc. Circumferential disc bulge greatest posteriorly. Effacement ventral thecal sac. Hypertrophy ligamentum flavum and facet joint arthropathy contribute to mild cent ral stenosis. Bilateral foramina are patent. L4-L5: There is evidence of vacuum disc. Circumferential disc bulge greatest posteriorly. Effacement ventral thecal sac. Hypertrophy ligamentum flavum and facet joint arthropathy contribute to mild cent ral stenosis. Mild bilateral foraminal encroachment. L5-S1: Vacuum disc. Posterior disc bulge. Mild effacement ventral thecal sac. No evidence for herniat ion or protrusion. No central stenosis. Bilateral foraminal encroachment noted. No paraspinal masses are identified. Lumbar segments are free if fracture. IMPRESSION: 1. Degenerative disc disease as discussed with central stenosis at L3-4 and L4-5.
== END | disposition home or self-care (01) ==
LOC: RADCTMAIN 14:24
PROVIDERS: ATTEND Internal Medicine
DX: M48.061 Spinal stenosis, lumbar region without neurogenic claudication (principal); M51.36 Other intervertebral disc degeneration, lumbar region
CPT/HCPCS: 72131

== ENCOUNTER → 2020-02-06 | Outpatient (CLI) | payer MEDICARE ==
--- NOTE | 2020-02-06 12:38 | XR ---
EXAMINATION TYPE: XR tibia fibula RT DATE OF EXAM: 02/06/2020 COMPARISON: None HISTORY: Pain TECHNIQUE: 2 view right tibia and fibula FINDINGS: Joint spaces are preserved. Vascular calcification is noted. No acute fracture or dislocati on is evident. Some minimal soft tissue swelling may be over the anterior distal tibia. IMPRESSION: 1. Minimal soft tissue swelling anterior distal tibia. 2. No acute osseous abnormality
== END | disposition home or self-care (01) ==
LOC: RADXRMAIN 11:35
PROVIDERS: ATTEND Internal Medicine
DX: M79.89 Other specified soft tissue disorders (principal)

== ENCOUNTER 2020-06-16 12:44 | Inpatient (IN) | payer MEDICARE ==
[2020-06-16 13:58] LABS: Basophils % (A) 0 %; Eosinophils # (A) 0.1 k/uL (0-0.7); Eosinophils % (A) 1 %; HCT 39.4 % (34.0-46.0); HGB 12.8 gm/dL (11.4-16.0); Lymphocytes # (A) 1.6 k/uL (1.0-4.8); Lymphocytes % (A) 13 %; MCH 29.8 pg (25.0-35.0); MCHC 32.5 g/dL (31.0-37.0); MCV 91.6 fL (80.0-100.0); Mean Platelet Volume 7.1; Monocytes # (A) 0.7 k/uL (0-1.0); Monocytes % (A) 6 %; Neutrophils # (A) 10.1 k/uL (1.3-7.7); Neutrophils % (A) 80 %; Platelet Count 235 k/uL (150-450); RDW 14.5 % (11.5-15.5); WBC 12.7 k/uL (3.8-10.6)
--- NOTE | 2020-06-16 14:06 | XR ---
EXAMINATION TYPE: XR chest 2V DATE OF EXAM: 06/16/2020 COMPARISON: 06/20/2019 HISTORY: Shortness of breath TECHNIQUE: Frontal and lateral views of the chest are obtained. FINDINGS: Scattered senescent parenchymal changes noted. Hyperinflation compatible with COPD. Mild increased density right lower lobe may reflect developing infiltrate. Correlate clinically. [employer] dionna pleural thickening left lower lobe. Heart size is stable. Mediastinal structures are stable and grossly unremarkable. No evidence for hilar prominence. Degenerative changes dorsal spine. IMPRESSION: 1. Mild increased density right lower lobe may reflect developing infiltrate. Correlate clinically.
[2020-06-16 14:12] LABS: Partial Thromboplastin Time 26.9 sec (22.0-30.0); Prothrombin Time 10.4 sec (9.0-12.0)
--- NOTE | 2020-06-16 14:15 | ED ---
SOB HPI - General Chief Complaint: Shortness of Breath Stated Complaint: SOB Time Seen by Provider: 06/16/20 13:07 Source: patient, EMS Mode of arrival: EMS Limitations: no limitations - History of Present Illness Initial Comments: Patient is an 89-year-old female, with history of COPD, currently on 2 L at home, presenting to the emergency department by EMS for increased shortness of breath over the past 2 days. Patient admits to having a mild cough but states this is normal for her, no increased. Patient states her shortness of breath gets worse when she stands up and tries to do some chores. Patient states after she sits for a few minutes she does feel better. She states she wears 2 L of oxygen all the time at home. She denies any chest pains. She denies any fever or chills. She denies any abdominal pain, no nausea or vomiting. She states she does have an appointment with her doctor in a few days, to discuss possible increasing the oxygen. Patient states she has also been under a lot more stress the last few days because she is trying to get ready to go to [place] as well as stressed over the holidays. Patient denies any dysuria. She has no further complaints at this time. Upon arrival to the ER, she is satting at 88% on room air, 98% on 4 L. - Related Data Home Medications Medication Instructions Recorded Confirmed Famotidine [Pepcid] 20 mg PO BID 10/23/17 06/16/20 Potassium Chloride [Klor-Con 10] 10 meq PO DAILY@1600 10/23/17 06/16/20 Melatonin 3 mg PO HS 07/10/18 06/16/20 Albuterol Inhaler [Ventolin Hfa 1 - 2 puff INHALATION RT-Q6H PRN 06/16/20 06/16/20 Inhaler] Atorvastatin [Lipitor] 20 mg PO HS 06/16/20 06/16/20 Digoxin [Digitek] 125 mcg PO DAILY 06/16/20 06/16/20 Diltiazem HCl [Diltiazem HCl 24Hr 180 mg PO DAILY 06/16/20 06/16/20 ER] Formoterol Fumarate [Perforomist] 20 mcg INHALATION RT-BID 06/16/20 06/16/20 Furosemide [Lasix] 20 mg PO BID 06/16/20 06/16/20 Isosorbide Mononitrate ER [Imdur] 15 mg PO DAILY 06/16/20 06/16/20 Metoprolol Tartrate [Lopressor] 25 mg PO BID 06/16/20 06/16/20 Metoprolol Tartrate [Lopressor] 50 mg PO BID 06/16/20 06/16/20 Omeprazole 20 mg PO DAILY 06/16/20 06/16/20 Risedronate Sodium [Risedronate 35 mg PO MO 06/16/20 06/16/[address]] predniSONE 10 mg PO DAILY 06/16/20 06/16/20 Previous Rx's Medication Instructions Recorded Apixaban [Eliquis] 2.5 mg PO BID tablet 08/11/17 Losartan [Cozaar] 25 mg PO HS #0 06/23/18 Budesonide [Pulmicort] 1 mg INHALATION RT-BID nebu 07/19/18 Ipratropium-Albuterol Nebulize 3 ml INHALATION RT-Q4H PRN 07/19/18 [Duoneb 0.5 mg-3 mg/3 ml Soln] ampul.neb Allergies Allergy/AdvReac Type Severity Reaction Status Date / Time shellfish derived [Shellfish] Allergy Nausea & Verified 06/16/20 15:32 Vomiting & Diarrhea Sulfa (Sulfonamide Allergy Unknown Verified 06/16/20 15:32 Antibiotics) Childhood Review of Systems ROS Statement: Those systems with pertinent positive or pertinent negative responses have been documented in the HPI. ROS Other: All systems not noted in ROS Statement are negative. Past Medical History Past Medical History: Atrial Fibrillation, Cancer, Heart Failure, COPD, Hypertension, Osteoarthritis (OA) Additional Past Medical History / Comment(s): skin cancer on scalp, macular degeneration History of Any Multi-Drug Resistant Organisms: None Reported Past Surgical History: Hernia Repair, Pacemaker, Tonsillectomy Additional Past Surgical History / Comment(s): skin cancer removed from scalp, andrew cataracts Past Anesthesia/Blood Transfusion Reactions: No Reported Reaction Type of Cardiac Device: Permanent Pacemaker Device Placement Date:: 2017 Past Psychological History: No Psychological Hx Reported Smoking Status: Former smoker Past Alcohol Use History: Occasional Past Drug Use History: None Reported - Past Family History Father Additional Family Medical History / Comment(s): Father at age 91 with history of heart disease. Mother Family Medical History: Cancer Additional Family Medical History / Comment(s): Mother at age 87 from pancreatic cancer. Brother(s) Additional Family Medical History / Comment(s): Patient has 1 brother that at age 93 from liver cancer. Sister(s) Additional Family Medical History / Comment(s): Patient has 2 sisters with no major medical problems. Daughter(s) Additional Family Medical History / Comment(s): Patient has a total of 4 children, 3 daughters and 1 son. One daughter at a young age and a motor vehicle accident. General Exam - General Exam Comments Initial Comments: GENERAL: Patient is well-developed and well-nourished. Patient is nontoxic and in no acute distress. HEAD: Atraumatic, normocephalic. EYES: Pupils equal round and reactive to light, extraocular movements intact, sclera anicteric, conjunctiva are normal. Eyelids were unremarkable. ENT: TMs normal, nares patent, oropharynx clear without exudates. Moist mucous membranes. NECK: Normal range of motion, supple without lymphadenopathy or JVD. LUNGS: Patient gets fatigued after long sentences. Mild scattered wheezes, No rales or rhonchi. HEART: Regular rate and rhythm without murmurs, rubs or gallops. ABDOMEN: Soft, nontender, normoactive bowel sounds. No guarding, no rebound. No masses appreciated. : Deferred MUSCULOSKELETAL: Normal extremities with adequate strength and normal range of motion, no pitting or edema. No clubbing or cyanosis. NEUROLOGICAL: Patient is alert and oriented x 3. Motor and sensory are also intact. Cranial nerves II through XII grossly intact. Symmetrical smile. Normal speech, normal gait. PSYCH: Normal mood, normal affect. SKIN: Warm, Dry, normal turgor, no rashes or lesions noted. Limitations: no limitations Course Vital Signs 06/16/20 06/16/20 06/16/20 12:49 13:00 14:04 Temperature 97.9 F Pulse Rate 67 64 Pulse Rate [ Pulse Oximetery ] Respiratory 30 H 24 20 Rate Blood Pressure 135/64 150/77 Blood Pressure [Left Arm] O2 Sat by Pulse 88 L 100 98 Oximetry 06/16/20 06/16/20 06/16/20 15:00 15:56 16:34 Temperature 97.7 F 98.4 F Pulse Rate 60 63 Pulse Rate [ 62 Pulse Oximetery ] Respiratory 19 20 Rate Blood Pressure 120/60 Blood Pressure 132/79 [Left Arm] O2 Sat by Pulse 97 98 Oximetry Medical Decision Making - Medical Decision Making Patient is an 89-year-old female, with history of COPD, presenting via EMS with shortness of breath it's increasing over the past 2 days. She was 88% on room air, 98% with 4 L. She is normally on 2 L around the clock at home. She is in no acute distress. She is afebrile. Labs show slight leukocytosis at 12.7, kidney function is stable with creatinine is 0.99. Lactic acid is 1.9, troponin is negative, BNP is 1800, covid rapid is not detected. EKG shows no acute process, chest x-ray reveals mild increased density of the right lower lobe, reflecting a developing infiltrate. I did attempt to turn down patient's oxygen to 2 L however her stats dropped to 92%. Patient has remained at 4 L in the ER. Patient will be admitted for pneumonia, COPD exacerbation. We will start antibiotics, breathing treatments as needed. Patient accepted by Dr. Gutiérrez. Patient is in agreement with this plan of care. Case discussed with Dr. Hager. - Lab Data Result diagrams: 06/16/20 13:11 06/16/20 13:11 Lab Results 06/16/20 06/16/20 06/16/20 Range/Units 13:11 13:11 13:11 WBC 12.7 H (3.8-10.6) k/uL RBC 4.30 (3.80-5.40) m/uL Hgb 12.8 (11.4-16.0) gm/dL Hct 39.4 (34.0-46.0) % MCV 91.6 (80.0-100.0) fL MCH 29.8 (25.0-35.0) pg MCHC 32.5 (31.0-37.0) g/dL RDW 14.5 (11.5-15.5) % Plt Count 235 (150-450) k/uL MPV 7.1 Neutrophils % 80 % Lymphocytes % 13 % Monocytes % 6 % Eosinophils % 1 % Basophils % 0 % Neutrophils # 10.1 H (1.3-7.7) k/uL Lymphocytes # 1.6 (1.0-4.8) k/uL Monocytes # 0.7 (0-1.0) k/uL Eosinophils # 0.1 (0-0.7) k/uL Basophils # 0.0 (0-0.2) k/uL PT 10.4 (9.0-12.0) sec INR 1.0 (<1.2) APTT 26.9 (22.0-30.0) sec Sodium 134 L (137-145) mmol/L Potassium 5.1 (3.5-5.1) mmol/L Chloride 98 (98-107) mmol/L Carbon Dioxide 30 (22-30) mmol/L Anion Gap 6 mmol/L BUN 24 H (7-17) mg/dL Creatinine 0.99 (0.52-1.04) mg/dL Est GFR (CKD-EPI)AfAm 59 (>60 ml/min/1.73 sqM) Est GFR (CKD-EPI)NonAf 51 (>60 ml/min/1.73 sqM) Glucose 112 H (74-99) mg/dL Plasma Lactic Acid Lion (0.7-2.0) mmol/L Calcium 8.8 (8.4-10.2) mg/dL Total Bilirubin 1.0 (0.2-1.3) mg/dL AST 35 (14-36) U/L ALT 41 H (4-34) U/L Alkaline Phosphatase 56 (38-126) U/L Troponin I (0.000-0.034) ng/mL NT-Pro-B Natriuret Pep pg/mL Total Protein 6.2 L (6.3-8.2) g/dL Albumin 4.0 (3.5-5.0) g/dL Coronavirus (PCR) (Not Detectd) 06/16/20 06/16/20 06/16/20 Range/Units 13:11 13:11 13:11 WBC (3.8-10.6) k/uL RBC (3.80-5.40) m/uL Hgb (11.4-16.0) gm/dL Hct (34.0-46.0) % MCV (80.0-100.0) fL MCH (25.0-35.0) pg MCHC (31.0-37.0) g/dL RDW (11.5-15.5) % Plt Count (150-450) k/uL MPV Neutrophils % % Lymphocytes % % Monocytes % % Eosinophils % % Basophils % % Neutrophils # (1.3-7.7) k/uL Lymphocytes # (1.0-4.8) k/uL Monocytes # (0-1.0) k/uL Eosinophils # (0-0.7) k/uL Basophils # (0-0.2) k/uL PT (9.0-12.0) sec INR (<1.2) APTT (22.0-30.0) sec Sodium (137-145) mmol/L Potassium (3.5-5.1) mmol/L Chloride (98-107) mmol/L Carbon Dioxide (22-30) mmol/L Anion Gap mmol/L BUN (7-17) mg/dL Creatinine (0.52-1.04) mg/dL Est GFR (CKD-EPI)AfAm (>60 ml/min/1.73 sqM) Est GFR (CKD-EPI)NonAf (>60 ml/min/1.73 sqM) Glucose (74-99) mg/dL Plasma Lactic Acid Lion 1.9 (0.7-2.0) mmol/L Calcium (8.4-10.2) mg/dL Total Bilirubin (0.2-1.3) mg/dL AST (14-36) U/L ALT (4-34) U/L Alkaline Phosphatase (38-126) U/L Troponin I <0.012 (0.000-0.034) ng/mL NT-Pro-B Natriuret Pep 1850 pg/mL Total Protein (6.3-8.2) g/dL Albumin (3.5-5.0) g/dL Coronavirus (PCR) (Not Detectd) 06/16/20 Range/Units 14:04 WBC (3.8-10.6) k/uL RBC (3.80-5.40) m/uL Hgb (11.4-16.0) gm/dL Hct (34.0-46.0) % MCV (80.0-100.0) fL MCH (25.0-35.0) pg MCHC (31.0-37.0) g/dL RDW (11.5-15.5) % Plt Count (150-450) k/uL MPV Neutrophils % % Lymphocytes % % Monocytes % % Eosinophils % % Basophils % % Neutrophils # (1.3-7.7) k/uL Lymphocytes # (1.0-4.8) k/uL Monocytes # (0-1.0) k/uL Eosinophils # (0-0.7) k/uL Basophils # (0-0.2) k/uL PT (9.0-12.0) sec INR (<1.2) APTT (22.0-30.0) sec Sodium (137-145) mmol/L Potassium (3.5-5.1) mmol/L Chloride (98-107) mmol/L Carbon Dioxide (22-30) mmol/L Anion Gap mmol/L BUN (7-17) mg/dL Creatinine (0.52-1.04) mg/dL Est GFR (CKD-EPI)AfAm (>60 ml/min/1.73 sqM) Est GFR (CKD-EPI)NonAf (>60 ml/min/1.73 sqM) Glucose (74-99) mg/dL Plasma Lactic Acid Lion (0.7-2.0) mmol/L Calcium (8.4-10.2) mg/dL Total Bilirubin (0.2-1.3) mg/dL AST (14-36) U/L ALT (4-34) U/L Alkaline Phosphatase (38-126) U/L Troponin I (0.000-0.034) ng/mL NT-Pro-B Natriuret Pep pg/mL Total Protein (6.3-8.2) g/dL Albumin (3.5-5.0) g/dL Coronavirus (PCR) Not Detected (Not Detectd) - EKG Data EKG Comments: Sinus rhythm with first-degree AV block, septal infarct, age undetermined, no signs of acute process at this time. Ventricular rate 65, W[place] a full 210, QT 412. Similar to previous EKG on 06/20/2019. Disposition Clinical Impression: Acute exacerbation of chronic obstructive pulmonary disease (COPD), Pneumonia Disposition: ADMITTED IP TO THIS [facility] Condition: Good Decision Date: 06/16/20 Decision Time: 15:03
[2020-06-16 14:23] LABS: Calcium 8.8 mg/dL (8.4-10.2); Potassium 5.1 mmol/L (3.5-5.1); Total Protein 6.2 g/dL (6.3-8.2)
[2020-06-16] MEDS ORDERED: PNEUMONIA PROTOCOL UTILIZED 1 EACH MISC PO PRN (15:00)
[2020-06-16] MEDS ORDERED: methylPREDNISolone SOD SUCCI 125 MG/2 ML VIAL IV STA (15:02)
[2020-06-16] MEDS ORDERED: ALBUTEROL NEBULIZED 2.5 MG/3 ML INHALATION PRN (15:20)
[2020-06-16] MEDS ORDERED: ALBUTEROL NEBULIZED 2.5 MG/3 ML INHALATION STA (15:20)
[2020-06-16] MEDS ORDERED: ALBUTEROL HFA INHALER INHALATION PRN (18:18)
[2020-06-16] MEDS: BUDESONIDE 1 MG/2 ML NEBU INHALATION SCH (20:21)
[2020-06-16] MEDS: FORMOTEROL FUMARATE 20 MCG/2 ML NEBU INHALATION SCH (20:21)
[2020-06-16] MEDS: LOSARTAN 25 MG TAB PO SCH (20:48)
[2020-06-16] MEDS: MELATONIN 3 MG TABLET PO SCH (20:48)
[2020-06-16] MEDS: FUROSEMIDE 20 MG TAB PO SCH (20:48)
[2020-06-16] MEDS: METOPROLOL TARTRATE 50 MG TAB PO SCH (20:49)
[2020-06-16] MEDS: METOPROLOL TARTRATE 25 MG TAB PO SCH (20:49)
[2020-06-16] MEDS: ATORVASTATIN 20 MG TAB PO SCH (20:49)
[2020-06-16] MEDS: APIXABAN 2.5 MG TABLET PO SCH (20:49)
--- NOTE | 2020-06-17 07:25 | XR ---
EXAMINATION TYPE: XR chest 1V DATE OF EXAM: 06/17/2020 COMPARISON: 06/16/2020 INDICATION: Pneumonia TECHNIQUE: Single frontal view of the chest is obtained. FINDINGS: The heart size is enlarged. The pulmonary vasculature is normal. Bibasilar infiltrates are present greater on the left. Correlate for pneumonia. Consider atypical pne umonia. Small left pleural effusion may be present. IMPRESSION: 1. Bibasilar infiltrates greater at the left base. Correlate for pneumonia.
[2020-06-17] MEDS ORDERED: predniSONE 10 MG TAB PO SCH (09:00)
[2020-06-17] MEDS: IPRATROPIUM-ALBUTEROL 3 ML NEB INHALATION PRN ×4 (09:09→20:08)
[2020-06-17] MEDS: BUDESONIDE 1 MG/2 ML NEBU INHALATION SCH ×2 (09:10→20:08)
[2020-06-17] MEDS: FORMOTEROL FUMARATE 20 MCG/2 ML NEBU INHALATION SCH ×2 (09:10→20:08)
[2020-06-17] MEDS: AZITHROMYCIN 500 MG TAB PO SCH (09:11)
[2020-06-17] MEDS: METOPROLOL TARTRATE 50 MG TAB PO SCH ×2 (09:11→20:57)
[2020-06-17] MEDS: APIXABAN 2.5 MG TABLET PO SCH ×2 (09:11→20:57)
[2020-06-17] MEDS: FUROSEMIDE 20 MG TAB PO SCH ×2 (09:11→20:57)
[2020-06-17] MEDS: FAMOTIDINE 20 MG TAB PO SCH (09:11)
[2020-06-17] MEDS: PANTOPRAZOLE 40 MG TABLET PO SCH (09:12)
[2020-06-17] MEDS: POTASSIUM CHLORIDE ER 10 MEQ TAB.ER.PRT PO SCH (09:12)
[2020-06-17] MEDS: METOPROLOL TARTRATE 25 MG TAB PO SCH ×2 (09:12→20:57)
[2020-06-17] MEDS: DIGOXIN 125 MCG TAB PO SCH (09:13)
[2020-06-17] MEDS: ISOSORBIDE MONONITRATE ER 15 MG TAB PO SCH (09:14)
[2020-06-17] MEDS: DILTIAZEM CD 180 MG CAP.ER.24H PO SCH (09:14)
--- NOTE | 2020-06-17 16:23 | CONS ---
CONSULTATION PULMONARY/CRITICAL CARE CONSULTATION: DATE OF SERVICE: 06/17/2020 This is a very pleasant 89-year-old female who sees Dr. Gutiérrez. She has a history of underlying COPD. She is on home oxygen at 2 L typically. She sees my partner Dr. Plasencia for her COPD. Anyway, she comes into the emergency room with complaints of 2 days' worth of increasing and progressive shortness of breath. She does cough. She has not produced any phlegm. There is no fever or chills. There is no chest pain or chest discomfort. The patient states that her breathing worsened despite taking her inhalers and updraft machine medications at home. She did not improve and that is why she came in to be evaluated. Currently she is on 4 L nasal cannula. She is on saline at 20 mL/hour. As I mentioned, she sees Dr. Plasencia for her COPD. She is on home oxygen. She typically uses 2 L. Her primary is Dr. Gutiérrez. She has a previous history of heavy tobacco use. In addition, she tells me her other major problem is atrial fibrillation. HOME MEDICATIONS: Reviewed. She is on Pepcid, potassium chloride, melatonin, albuterol inhaler, Lipitor, digoxin, Cardizem, Perforomist, Lasix, Imdur, metoprolol, omeprazole, risedronate and prednisone. Also, the patient is on Eliquis, Cozaar, Pulmicort and DuoNeb. ALLERGIES: SHELLFISH and SULFA ANTIBIOTICS. PAST MEDICAL HISTORY: Past medical history is positive for atrial fibrillation, skin cancer, heart failure, COPD, hypertension, osteoarthritis and macular degeneration. The patient also has a history of hyperlipidemia. SURGICAL HISTORY: Surgical history includes pacemaker insertion, tonsillectomy, hernia repair, skin cancer removal and bilateral cataract surgery. The patient also has a permanent pacemaker implanted. SOCIAL HISTORY: Positive for previous heavy tobacco use. She does not smoke currently. She drinks alcohol occasionally. No illicit drug use. FAMILY HISTORY: Positive for her father at age 91 with congestive heart failure/cardiac disease. Her mother at age 87 from pancreatic cancer. A brother at age 93 from liver cancer and 2 sisters who have no major medical problems. She also has a daughter with no medical history. REVIEW OF SYSTEMS: CONSTITUTIONAL: Weakness. NEUROLOGIC: Negative. HEENT: Negative. CARDIOVASCULAR: Negative. PULMONARY: Shortness of breath, wheezing, chest tightness, minimal cough without phlegm production. GI: Negative. : Negative. RHEUMATOLOGIC: Negative. IMMUNOLOGIC: Negative. ENDOCRINOLOGIC: Negative. DERMATOLOGIC: Negative. PHYSICAL EXAMINATION: VITAL SIGNS: Current vital signs are reviewed. Temperature 98.3, heart rate 78, respiratory rate 18, blood pressure 148/71, mean 96. Four-liter saturation 98%. GENERAL APPEARANCE: Appears in no acute distress. HEENT: Examination is grossly unremarkable. NECK: Supple. Full range of motion. No adenopathy. Neck veins are flat. CARDIOVASCULAR: Examination reveals regular rhythm and rate. LUNGS: Lungs reveal coarse rhonchi. Breath sounds are diminished. There is prolongation on forced maneuver. The patient wheezes on forced maneuver. ABDOMEN: Soft. Bowel sounds are heard. EXTREMITIES: Intact. No cyanosis, clubbing or edema. SKIN: Without rash. NEUROLOGIC: Neurologic examination is nonfocal. LABS/IMAGING: Reviewed. White count 12.7, hemoglobin 12.8, hematocrit 39.4, platelet count 335,000. PT, INR, PTT normal. Sodium 134, potassium 5.1, chloride 98, CO2 30. Anion gap is 6. BUN and creatinine were 24 and 0.99. The rest of the labs look okay. COVID testing was negative. Microbiology is negative. Chest x-ray shows either infiltrate or atelectasis, right lower lobe. Repeat chest x- ray shows bibasilar infiltrates, greater at the left base. MEDICATIONS: Medications are reviewed. The patient is currently on albuterol inhaler, Eliquis, Lipitor, Zithromax, Pulmicort, ceftriaxone, digoxin, Cardizem, famotidine, formoterol, Lasix, DuoNeb, Imdur, losartan, melatonin, metoprolol, Protonix, prednisone 10 mg a day and potassium chloride. ASSESSMENT: 1. Chronic obstructive pulmonary disease exacerbation, potentially complicated by bibasilar pneumonia. 2. History of gastroesophageal reflux disease. 3. Insomnia. 4. Hyperlipidemia. 5. Atrial fibrillation. 6. Hypertension. 7. Osteoporosis. 8. History of skin cancer. 9. History of heart failure. 10.Degenerative joint disease. 11.History of macular degeneration. PLAN: Medications are reviewed. Everything is appropriate. The patient is on appropriate antibiotics and her normal dose of prednisone 10 mg a day. She is also on DuoNebs along with Pulmicort and formoterol. Will continue to follow. If she becomes more bronchospastic, I would increase her dose of prednisone or place her on some Solu- Medrol at 60 mg q.6 for a couple of days. MMODL / DAMARIN: [id number] / MTDD
[2020-06-17] MEDS: ATORVASTATIN 20 MG TAB PO SCH (20:57)
[2020-06-17] MEDS: MELATONIN 3 MG TABLET PO SCH (20:58)
[2020-06-17] MEDS: LOSARTAN 25 MG TAB PO SCH (20:58)
--- NOTE | 2020-06-18 03:12 | P.HPIM ---
History of Present Illness H&P Date: 06/17/20 Chief Complaint: COPD exacerbation with right lower lobe pneumonia. 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 Review of Systems Constitutional: Denies anorexia, Denies chronic headaches, Denies fatigue, Denies weakness Eyes: denies blurred vision, denies bulging eye, denies decreased vision Ears, nose, mouth and throat: Denies epistaxis, Denies neck lump, Denies sore throat Cardiovascular: Reports decreased exercise tolerance, Reports dyspnea on exertion, Reports shortness of breath, Denies chest pain, Denies lightheadedness, Denies rapid heart beat, Denies syncope Respiratory: Reports congestion, Reports cough, Reports cough with sputum, Reports dyspnea, Reports home oxygen, Reports respiratory infections, Reports wheezing, Denies sleep apnea, Denies snoring Gastrointestinal: Denies abdominal pain, Denies bloating, Denies BRBPR, Denies dyspepsia, Denies excessive gas, Denies loss of appetite, Denies melena, Denies nausea, Denies vomiting Genitourinary: Denies dysuria, Denies nocturia, Denies pelvic pain Menstruation: Reports postmenopausal Musculoskeletal: Reports gait dysfunction, Reports low back pain, Reports morning stiffness Musculoskeletal: absent: ankle pain, ankle stiffness, ankle swelling, elbow pain, elbow stiffness, elbow swelling, foot pain, foot stiffness, foot swelling, hand pain, hand stiffness, hand swelling, hip pain, hip stiffness, hip swelling, knee pain, knee stiffness, knee swelling, shoulder pain, shoulder stiffness, shoulder swelling, wrist pain, wrist stiffness, wrist swelling Integumentary: Denies pruritus, Denies rash Neurological: Denies numbness, Denies weakness Psychiatric: Reports anxiety, Denies paranoia, Denies sadness/tearfulness, Denies sleep disturbances, Denies suicidal ideation Endocrine: Denies fatigue, Denies weight change Past Medical History Past Medical History: Atrial Fibrillation, Cancer, Heart Failure, COPD, GERD/Reflux, Hyperlipidemia, Hypertension, Osteoarthritis (OA) Additional Past Medical History / Comment(s): skin cancer on scalp, macular degeneration History of Any Multi-Drug Resistant Organisms: None Reported Past Surgical History: Hernia Repair, Pacemaker, Tonsillectomy Additional Past Surgical History / Comment(s): skin cancer removed from scalp, andrew cataracts Past Anesthesia/Blood Transfusion Reactions: No Reported Reaction Type of Cardiac Device: Permanent Pacemaker Device Placement Date:: 2017 Past Psychological History: No Psychological Hx Reported Smoking Status: Former smoker Past Alcohol Use History: Occasional Past Drug Use History: None Reported - Past Family History Father Family Medical History: Coronary Artery Disease (CAD) Additional Family Medical History / Comment(s): Father at age 91 with history of heart disease. Mother Family Medical History: Cancer Additional Family Medical History / Comment(s): Mother at age 87 from pancreatic cancer. Brother(s) Additional Family Medical History / Comment(s): Patient has 1 brother that at age 93 from liver cancer. Sister(s) Additional Family Medical History / Comment(s): Patient has 2 sisters with no major medical problems. Daughter(s) Additional Family Medical History / Comment(s): Patient has a total of 4 children, 3 daughters and 1 son. One daughter at a young age and a motor vehicle accident. Medications and Allergies Home Medications Medication Instructions Recorded Confirmed Type Apixaban [Eliquis] 2.5 mg PO BID tablet 08/11/17 06/16/20 Rx Famotidine [Pepcid] 20 mg PO BID 10/23/17 06/16/20 History Potassium Chloride [Klor-Con 10] 10 meq PO DAILY@1600 10/23/17 06/16/20 History Losartan [Cozaar] 25 mg PO HS #0 06/23/18 06/16/20 Rx Melatonin 3 mg PO HS 07/10/18 06/16/20 History Budesonide [Pulmicort] 1 mg INHALATION RT-BID nebu 07/19/18 06/16/20 Rx Ipratropium-Albuterol Nebulize 3 ml INHALATION RT-Q4H PRN 07/19/18 06/16/20 Rx [Duoneb 0.5 mg-3 mg/3 ml Soln] ampul.neb Albuterol Inhaler [Ventolin Hfa 1 - 2 puff INHALATION RT-Q6H PRN 06/16/20 06/16/20 History Inhaler] Atorvastatin [Lipitor] 20 mg PO HS 06/16/20 06/16/20 History Digoxin [Digitek] 125 mcg PO DAILY 06/16/20 06/16/20 History Diltiazem HCl [Diltiazem HCl 24Hr 180 mg PO DAILY 06/16/20 06/16/20 History ER] Formoterol Fumarate [Perforomist] 20 mcg INHALATION RT-BID 06/16/20 06/16/20 History Furosemide [Lasix] 20 mg PO BID 06/16/20 06/16/20 History Isosorbide Mononitrate ER [Imdur] 15 mg PO DAILY 06/16/20 06/16/20 History Metoprolol Tartrate [Lopressor] 25 mg PO BID 06/16/20 06/16/20 History Metoprolol Tartrate [Lopressor] 50 mg PO BID 06/16/20 06/16/20 History Omeprazole 20 mg PO DAILY 06/16/20 06/16/20 History Risedronate Sodium [Risedronate 35 mg PO MO 06/16/20 06/16/[address]] predniSONE 10 mg PO DAILY 06/16/20 06/16/20 History Allergies Allergy/AdvReac Type Severity Reaction Status Date / Time shellfish derived [Shellfish] Allergy Nausea & Verified 06/16/20 15:32 Vomiting & Diarrhea Sulfa (Sulfonamide Allergy Unknown Verified 06/16/20 15:32 Antibiotics) Childhood Physical Exam Vitals: Vital Signs Temp Pulse Pulse Resp BP BP Pulse Ox 06/16/20 20:48 68 06/16/20 20:35 65 06/16/20 20:34 65 06/16/20 20:22 65 06/16/20 16:37 63 06/16/20 16:34 63 06/16/20 15:56 98.4 F 60 20 120/60 98 06/16/20 15:00 97.7 F 62 19 132/79 97 06/16/20 14:04 64 20 150/77 98 06/16/20 13:00 24 100 06/16/20 12:49 97.9 F 67 30 H 135/64 88 L Intake and Output 06/16/20 06/16/20 06/17/20 14:59 22:59 06:59 Other: # Voids 1 Weight 89.131 kg 89.131 kg Physical examination: HEENT: head is atraumatic normocephalic pupils were equal round reactive to light and accommodations extra ocular muscle movements were intact, sclera were intact, mucous membranes of the mouth are somewhat dry. Neck: supple, no JVP. Chest: decrease breath sounds at the bases with few ronchi , minimal expiratory wheezes no chest wall tenderness or intercostal retractions. Heart: first heart sound is depressed second heart sound is normal there FLORY 2/6 located at the left sternal border. Abdomen: soft non tender non distended positive bowel sounds, there is no hepatosplenomagaly. Extremities: there is trace edema no calf tenderness DP + 1 bilaterally. Neurologic examination: patient is awake alert and oriented X 3 CN II-XII are grossly intact, muscle power 4/5 in bilateral upper and lower extremities , deep tendon reflexes were depressed bilaterally. Results CBC & Chem 7: 06/16/20 13:11 06/16/20 13:11 Labs: Abnormal Lab Results - Last 24 Hours (Table) 06/16/20 06/16/20 Range/Units 13:11 13:11 WBC 12.7 H (3.8-10.6) k/uL Neutrophils # 10.1 H (1.3-7.7) k/uL Sodium 134 L (137-145) mmol/L BUN 24 H (7-17) mg/dL Glucose 112 H (74-99) mg/dL ALT 41 H (4-34) U/L Total Protein 6.2 L (6.3-8.2) g/dL Thrombosis Risk Factor Assmnt - DVT/VTE Prophylaxis DVT/VTE Prophylaxis: Pharmacologic Prophylaxis ordered, Mechanical Prophylaxis ordered - Choose All That Apply Any of the Below Risk Factors Present?: Yes Each Factor Represents 1 point: Abnormal pulmonary function (COPD), Obesity (BMI >25), Serious lung disease incl. pneumonia (< 1month) Other Risk Factors: Yes Each Risk Factor Represents 2 Points: Malignancy Each Risk Factor Represents 3 Points: Age 75 years or older Other congenital or acquired thrombophilia - If yes, enter type in comment: No Thrombosis Risk Factor Assessment Total Risk Factor Score: 8 Thrombosis Risk Factor Assessment Level: High Risk Assessment and Plan Assessment: Assessment and plan: 1. Acute hypoxemic respiratory failure due to COPD exacerbation and right lower lobe pneumonia. we will contiue with O2 at 4 L NC, Duoneb 3 ml ID, Budesonide 1 mg NEB bid, we will continue with Rocephin 1 gr IVPB daily, Zithromax 250 mg orally daily, and we will start Solu-Medrol 40 mg IVP Q 8 h, pulmonary consult, we will continue to monitor. 2. Right lower lobe pneumonia. we will continue with Rocephin and Zithromax. 3. COPD exacerbation. we will continue with O2 support, Solu-Medrol 40 mg IVP Q 8 h and Duoneb 3 ml NEB QID along with Pulmicort 1 mg NEB BID. 4. Hypertension and hypertensive cardiovascular disease. we will continue with Losartn 25 mg orally daily, Metoprolol 75 mg orally bid. 5. Hyperlipidemia. we will continue with Lipitor 20 mg orally daily. 6. Paroxysmal atrial fibrillation. we will continue with Digoxin 125 mcg orally daily, Cardizem CD 180 mg orally daily, Metoprolol 75 mg orally bid and Eliquis 2.5 mg orally bid. 7. Chronic diastolic heart failure. we will continue with Lasix 20 mg orally bid, LOsartan 25 mg orally daily and Metoprolol 75 mg orally bid. 8. Chronic hypoxemic respiratory failure due to moderate to svere COPD. we will continue with above treatment. 9. GERD. we will continue with Pecid 20 mg orally daily. 10. CAD . we will continue with Metoprolol 75 mg orally bid, Lipitor 20 mg orally daily and IMdur 15 mg orally daily. 11. DVT prophylaxis. we will continue with Eliquis 2.5 mg orally bid. 12. GI prophylxis. we will contiue with Pepcid 20 mg orally daily. 13. Admits to npatient , estimated length of stay 2 midnights. 14. Full code.
[2020-06-18 07:05] LABS: Basophils % (A) 0 %; Eosinophils % (A) 1 %; HCT 36.5 % (34.0-46.0); Lymphocytes % (A) 7 %; MCH 30.1 pg (25.0-35.0); MCHC 32.7 g/dL (31.0-37.0); MCV 91.9 fL (80.0-100.0); Monocytes % (A) 5 %; Neutrophils % (A) 85 %; Platelet Count 178 k/uL (150-450); RBC 3.97 m/uL (3.80-5.40); RDW 14.1 % (11.5-15.5); WBC 9.8 k/uL (3.8-10.6)
[2020-06-18 07:06] LABS: Eosinophils # (A) 0.1 k/uL (0-0.7); Lymphocytes # (A) 0.7 k/uL (1.0-4.8); Monocytes # (A) 0.5 k/uL (0-1.0); Neutrophils # (A) 8.4 k/uL (1.3-7.7)
[2020-06-18] MEDS: IPRATROPIUM-ALBUTEROL 3 ML NEB INHALATION PRN (07:18)
[2020-06-18] MEDS: FORMOTEROL FUMARATE 20 MCG/2 ML NEBU INHALATION SCH ×2 (07:18→18:45)
[2020-06-18] MEDS: BUDESONIDE 1 MG/2 ML NEBU INHALATION SCH ×2 (07:18→18:45)
[2020-06-18] MEDS: PANTOPRAZOLE 40 MG TABLET PO SCH (08:29)
[2020-06-18] MEDS: METOPROLOL TARTRATE 50 MG TAB PO SCH ×2 (08:29→19:55)
[2020-06-18] MEDS: FAMOTIDINE 20 MG TAB PO SCH (08:29)
[2020-06-18] MEDS: AZITHROMYCIN 500 MG TAB PO SCH (08:29)
[2020-06-18] MEDS: METOPROLOL TARTRATE 25 MG TAB PO SCH ×2 (08:29→19:55)
[2020-06-18] MEDS: FUROSEMIDE 20 MG TAB PO SCH (08:30)
[2020-06-18] MEDS: DILTIAZEM CD 180 MG CAP.ER.24H PO SCH (08:30)
[2020-06-18] MEDS: DIGOXIN 125 MCG TAB PO SCH (08:30)
[2020-06-18] MEDS: ISOSORBIDE MONONITRATE ER 15 MG TAB PO SCH (08:30)
[2020-06-18] MEDS: APIXABAN 2.5 MG TABLET PO SCH ×2 (08:30→19:55)
[2020-06-18] MEDS: methylPREDNISolone SOD SUCCI 40 MG/ML 1 ML VIAL IV SCH ×3 (08:31→19:56)
[2020-06-18 09:54] LABS: African American GFR (CKD) 51.9 (60.0-200.0); Albumin 3.9 g/dL (3.80-4.90); Anion Gap 8.1 mmol/L (4.00-12.00); BUN/Creat Ratio 25.45 Ratio (12.00-20.00); Calcium 8.8 mg/dL (8.7-10.3); Carbon Dioxide 31.9 mmol/L (21.6-31.8); Globulin 1.3 g/dL (1.6-3.3); Magnesium 2.2 mg/dL (1.5-2.4); Non-African American GFR(CKD) 44.8 (60.0-200.0); Potassium 4.5 mmol/L (3.5-5.5); Total Bilirubin 0.6 mg/dL (0.2-1.2); Total Protein 5.2 g/dL (6.2-8.2)
[2020-06-18] MEDS: IPRATROPIUM-ALBUTEROL 3 ML NEB INHALATION SCH ×3 (11:11→18:45)
--- NOTE | 2020-06-18 14:15 | PN ---
PROGRESS NOTE PULMONARY/CRITICAL CARE PROGRESS NOTE: DATE OF SERVICE: 06/18/2020 A very pleasant 89-year-old female who I saw yesterday in consultation. She was admitted with a diagnosis of COPD exacerbation complicated by either purulent tracheobronchitis or mild bibasilar pneumonia. Clinically, the patient looks relatively well. She is currently on 3 L nasal cannula. She is getting saline at 20 mL an hour. She does have a history of multiple medical problems including GERD, insomnia, hyperlipidemia, atrial fibrillation, hypertension, osteoporosis, skin cancer, CHF, DJD, and macular degeneration. The patient will probably be able to be discharged on Tuesday. Her major complaint is shortness of breath, cough, chest congestion and occasional phlegm production. Currently, vital signs are reviewed, her temperature is 97.9, heart rate 69, respiratory rate 17, blood pressure 120/61, mean 83 L saturation 96%-98%. Appears in no acute distress. HEENT: Examination is grossly unremarkable. NECK: Supple, full range of motion. No adenopathy. Neck veins are flat. CARDIOVASCULAR: Examination reveals regular rhythm and rate. Heart rate mid 60s. S1, S2 normal. There is no murmur. No S3 or S4. Heart sounds are distant. LUNGS: Reveal diffuse inspiratory and expiratory wheezes. A few scattered crackles. No breath sounds equal bilaterally. There is also some expiratory rhonchi. ABDOMEN: Soft, bowel sounds are heard. EXTREMITIES are intact. No cyanosis, clubbing, or edema. SKIN: Without rash. NEUROLOGIC: Examination is nonfocal. LABS: Reviewed. White count 9.8, hemoglobin 12.0, hematocrit 36.5, platelet count 178,000. PT, INR, PTT all normal, sodium 139, potassium 4.5, chloride 99, CO2 is 32, BUN and creatinine were 28 and 1.1. COVID testing was negative. N-terminal proBNP 1850. Microbiology is currently negative. The most recent chest x-ray was the one done yesterday which shows cardiomegaly and bilateral small effusions. It is hard to rule out pneumonia on this chest x-ray as well. CURRENT MEDICATIONS: Reviewed. The patient is on albuterol inhaler, Eliquis, Lipitor, Zithromax, Pulmicort, Rocephin, digoxin, Cardizem, famotidine, formoterol, Lasix, DuoNeb, Imdur, losartan, melatonin, Solu-Medrol, metoprolol, Protonix, and potassium chloride. ASSESSMENT: 1. COPD exacerbation complicated by mild purulent tracheobronchitis versus bronchopneumonia, bilateral lower lobes. 2. Rule out mild fluid overload/CHF with small bilateral effusions. 3. History of gastroesophageal reflux disease. 4. Insomnia. 5. Hyperlipidemia. 6. History of atrial fibrillation. 7. History of essential hypertension. 8. Osteoporosis. 9. History of skin cancer. 10.History of degenerative joint disease. 11.History of macular degeneration. PLAN: Current medications are appropriate. Will continue to follow. This patient is hoping to be discharged home on or Tuesday. No additional recommendations are made. Prognosis is guarded. MMODL / IJN: [id number] /
[2020-06-18 14:32] LABS: Digoxin 0.7 ng/mL (0.8-2.0)
[2020-06-18] MEDS: POTASSIUM CHLORIDE ER 10 MEQ TAB.ER.PRT PO SCH (16:42)
--- NOTE | 2020-06-18 17:13 | P.PN ---
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 06/18: Patient's breathing status is improving. She continues to have shortness breath with activity but feels that she hasn't better from yesterday. She sustained a skin tear to the right pretibial area when moving in bed. She denies having any fever or chills. No sputum production. Patient is been afebrile, heart rate 70, blood pressure 174/70, pulse ox 100% on 3 L nasal cannula. Patient has changed her travel plans will not be leaving for [place] until Tuesday. Objective - Vital Signs Vital signs: Vital Signs Temp 97.9 F 06/18/20 11:00 Pulse 70 06/18/20 15:08 Resp 17 06/18/20 11:00 BP 120/61 06/18/20 11:00 Pulse Ox 98 06/18/20 11:00 Intake & Output 06/17/20 06/18/20 06/18/20 18:59 06:59 18:59 Intake Total 480 240 Balance 480 240 Intake: Oral 480 240 Other: Voiding Method Bedside Commode Toilet Toilet Bedside Commode Bedside Commode # Voids 4 2 # Bowel Movements 1 - Exam Review of Systems Constitutional: Denies anorexia, Denies chronic headaches, Denies fatigue, Denies weakness Eyes: denies blurred vision, denies bulging eye, denies decreased vision Ears, nose, mouth and throat: Denies epistaxis, Denies neck lump, Denies sore throat Cardiovascular: Reports decreased exercise tolerance, Reports dyspnea on exertion, Reports shortness of breath, Denies chest pain, Denies lightheadedne ss, Denies rapid heart beat, Denies syncope Respiratory: Reports congestion, Reports cough, Reports cough with sputum, Reports dyspnea, Reports home oxygen, Reports respiratory infections, Reports wheezing, Denies sleep apnea, Denies snoring Gastrointestinal: Denies abdominal pain, Denies bloating, Denies BRBPR, Denies dyspepsia, Denies excessive gas, Denies loss of appetite, Denies melena, Denies nausea, Denies vomiting Genitourinary: Denies dysuria, Denies nocturia, Denies pelvic pain Menstruation: Reports postmenopausal Musculoskeletal: Reports gait dysfunction, Reports low back pain, Reports morning stiffness Musculoskeletal: absent: ankle pain, ankle stiffness, ankle swelling, elbow pain, elbow stiffness, elbow swelling, foot pain, foot stiffness, foot swelling, hand pain, hand stiffness, hand swelling, hip pain, hip stiffness, hip swelling, knee pain, knee stiffness, knee swelling, shoulder pain, shoulder stiffness, shoulder swelling, wrist pain, wrist stiffness, wrist swelling Integumentary: Denies pruritus, Denies rash Neurological: Denies numbness, Denies weakness Psychiatric: Reports anxiety, Denies paranoia, Denies sadness/tearfulness, Denies sleep disturbances, Denies suicidal ideation Endocrine: Denies fatigue, Denies weight change Physical examination: HEENT: head is atraumatic normocephalic pupils were equal round reactive to light and accommodations extra ocular muscle movements were intact, sclera were intact, mucous membranes of the mouth are somewhat dry. Neck: supple, no JVP. Chest: decrease breath sounds at the bases with few ronchi , minimal expiratory wheezes no chest wall tenderness or intercostal retractions. Heart: first heart sound is depressed second heart sound is normal there FLORY 2/6 located at the left sternal border. Abdomen: soft non tender non distended positive bowel sounds, there is no hepatosplenomagaly. Extremities: there is trace edema no calf tenderness DP + 1 bilaterally. Neurologic examination: patient is awake alert and oriented X 3 CN II-XII are grossly intact, muscle power 4/5 in bilateral upper and lower extremities , deep tendon reflexes were depressed bilaterally. - Labs CBC & Chem 7: 06/18/20 06:23 06/18/20 06:23 Labs: Abnormal Lab Results - Last 24 Hours (Table) 06/18/20 06/18/20 Range/Units 06:23 06:23 Neutrophils # 8.4 H (1.3-7.7) k/uL Lymphocytes # 0.7 L (1.0-4.8) k/uL Carbon Dioxide 31.9 H (21.6-31.8) mmol/L BUN 28.0 H (9.0-27.0) mg/dL Est GFR (CKD-EPI)AfAm 51.9 L (60.0-200.0) Est GFR (CKD-EPI)NonAf 44.8 L (60.0-200.0) BUN/Creatinine Ratio 25.45 H (12.00-20.00) Ratio Glucose 118 H (70-110) mg/dL Total Protein 5.2 L (6.2-8.2) g/dL Globulin 1.3 L (1.6-3.3) g/dL Digoxin 0.7 L (0.8-2.0) ng/mL Microbiology - Last 24 Hours (Table) 06/16/20 15:55 Blood Culture - Preliminary Blood No Growth after 24 hours Assessment and Plan Assessment: Assessment and plan: 1. Acute hypoxemic respiratory failure due to COPD exacerbation and right lower lobe pneumonia. we will contiue with O2 at 3 L NC, Duoneb 3 ml 4 times daily scheduled and as needed, Budesonide 1 mg NEB bid, we will continue with Rocephin 1 gr IVPB daily, Zithromax 250 mg orally daily, and we will start Solu-Medrol 40 mg IVP Q 8 h, pulmonary consult, we will continue to monitor. 2. Right lower lobe pneumonia. we will continue with Rocephin and Zithromax. 3. COPD exacerbation. we will continue with O2 support, Solu-Medrol 40 mg IVP Q 8 h and Duoneb 3 ml NEB QID along with Pulmicort 1 mg NEB BID. 4. Hypertension and hypertensive cardiovascular disease. we will continue with Losartn 25 mg orally daily, Metoprolol 75 mg orally bid. 5. Hyperlipidemia. we will continue with Lipitor 20 mg orally daily. 6. Paroxysmal atrial fibrillation. we will continue with Digoxin 125 mcg orally daily, Cardizem CD 180 mg orally daily, Metoprolol 75 mg orally bid and Eliquis 2.5 mg orally bid. 7. Chronic diastolic heart failure. we will continue with Lasix 20 mg orally bid, LOsartan 25 mg orally daily and Metoprolol 75 mg orally bid. 8. Chronic hypoxemic respiratory failure due to moderate to svere COPD. we will continue with above treatment. 9. GERD. we will continue with Pecid 20 mg orally daily. 10. CAD . we will continue with Metoprolol 75 mg orally bid, Lipitor 20 mg orally daily and IMdur 15 mg orally daily. 11. DVT prophylaxis. we will continue with Eliquis 2.5 mg orally bid. 12. GI prophylxis. we will contiue with Pepcid 20 mg orally daily. 13. Full code.
[2020-06-18] MEDS: LOSARTAN 25 MG TAB PO SCH (19:55)
[2020-06-18] MEDS: FUROSEMIDE 40 MG TAB PO SCH (19:56)
[2020-06-18] MEDS: MELATONIN 3 MG TABLET PO SCH (19:56)
[2020-06-18] MEDS: ATORVASTATIN 20 MG TAB PO SCH (19:56)
[2020-06-19] MEDS: BUDESONIDE 1 MG/2 ML NEBU INHALATION SCH ×2 (07:09→18:49)
[2020-06-19] MEDS: IPRATROPIUM-ALBUTEROL 3 ML NEB INHALATION SCH ×4 (07:09→18:49)
[2020-06-19] MEDS: FORMOTEROL FUMARATE 20 MCG/2 ML NEBU INHALATION SCH ×2 (07:09→18:50)
[2020-06-19] MEDS: methylPREDNISolone SOD SUCCI 40 MG/ML 1 ML VIAL IV SCH (08:17)
[2020-06-19] MEDS: APIXABAN 2.5 MG TABLET PO SCH ×2 (08:18→20:28)
[2020-06-19] MEDS: AZITHROMYCIN 500 MG TAB PO SCH (08:18)
[2020-06-19] MEDS: DIGOXIN 125 MCG TAB PO SCH (08:18)
[2020-06-19] MEDS: METOPROLOL TARTRATE 50 MG TAB PO SCH ×2 (08:19→20:28)
[2020-06-19] MEDS: ISOSORBIDE MONONITRATE ER 15 MG TAB PO SCH (08:19)
[2020-06-19] MEDS: FUROSEMIDE 40 MG TAB PO SCH ×2 (08:19→20:28)
[2020-06-19] MEDS: METOPROLOL TARTRATE 25 MG TAB PO SCH ×2 (08:19→20:28)
[2020-06-19] MEDS: DILTIAZEM CD 180 MG CAP.ER.24H PO SCH (08:19)
[2020-06-19] MEDS: PANTOPRAZOLE 40 MG TABLET PO SCH (08:19)
[2020-06-19] MEDS: FAMOTIDINE 20 MG TAB PO SCH (08:19)
--- NOTE | 2020-06-19 14:35 | P.PN ---
Subjective Progress Note Date: 06/19/20 Principal diagnosis: Acute exacerbation of chronic obstructive pulmonary disease The patient is seen today 06/19/2020 in follow-up on the regular medical floor. She is currently sitting up at the bedside. Awake and alert in no acute distress. Maintaining good O2 saturations in the 90s on 2 L/m per nasal cannula. She is breathing easier today compared to yesterday. She's been treated for both COPD and congestive heart failure. Her CoVID 19 screen was negative. She is afebrile. Hemodynamically stable. Blood culture reveals no growth. Remains on antibiotics in the form of ceftriaxone and azithromycin. Continue on DuoNeb inhalations, Pulmicort and Perforomist inhalations, IV Solu- Medrol. Diuretics. Anticoagulated with Eliquis. Objective - Vital Signs Vital signs: Vital Signs Temp 98.1 F 06/19/20 11:00 Pulse 103 H 06/19/20 11:00 Resp 17 06/19/20 11:00 BP 120/71 06/19/20 11:00 Pulse Ox 97 06/19/20 11:00 Intake & Output 06/18/20 06/19/20 06/19/20 18:59 06:59 18:59 Other: Voiding Method Toilet Toilet Toilet Bedside Commode Bedside Commode Bedside Commode # Voids 5 # Bowel Movements 1 - Exam GENERAL EXAM: Alert, active, pleasant 89-year-old female patient, on 2 L nasal cannula, comfortable in no apparent distress. HEAD: Normocephalic. EYES: Normal reaction of pupils, equal size. NOSE: Clear with pink turbinates. THROAT: No erythema or exudates. NECK: No masses, no JVD. CHEST: No chest wall deformity. LUNGS: Equal air entry with faint end expiratory wheeze, basilar crackles, diminished CVS: S1 and S2 normal with no audible murmur, regular rhythm. ABDOMEN: No hepatosplenomegaly, normal bowel sounds, no guarding or rigidity. SPINE: No scoliosis or deformity SKIN: No rashes CENTRAL NERVOUS SYSTEM: No focal deficits, tone is normal in all 4 extremities. EXTREMITIES: There is no peripheral edema. No clubbing, no cyanosis. Peripheral pulses are intact. - Labs CBC & Chem 7: 06/18/20 06:23 06/18/20 06:23 Labs: Abnormal Lab Results - Last 24 Hours (Table) 06/18/20 Range/Units 06:23 Digoxin 0.7 L (0.8-2.0) ng/mL Microbiology - Last 24 Hours (Table) 06/16/20 15:55 Blood Culture - Preliminary Blood No Growth after 48 hours Assessment and Plan Assessment: 1 Acute exacerbation of chronic obstructive pulmonary disease complicated by mild purulent tracheobronchitis 2 Acute exacerbation of diastolic congestive heart failure 3 Atrial fibrillation, anticoagulated with Eliquis 4 Hypertension 5 Degenerative joint disease 6 History macular degeneration 7 Osteoporosis 8 Hyperlipidemia 9 Gastroesophageal reflux disease Plan: The patient was seen and evaluated by Dr. Plasencia Continue with current treatment plan Repeat a chest x-ray in a.m. Possible discharge in a.m. We will continue to follow I, the cosigning physician, performed a history & physical examination of the patient. Lungs sounds with faint end expiratory wheeze, basilar crackles, diminished. Maintaining good O2 saturations in the 90s on 2 L/m per nasal cannula. I discussed the assessment and plan of care with my nurse practitioner, Yessica Doe. I attest to the above note as dictated by her.
[2020-06-19] MEDS: POTASSIUM CHLORIDE ER 10 MEQ TAB.ER.PRT PO SCH (16:55)
--- NOTE | 2020-06-19 18:13 | P.PN ---
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 06/18: Patient's breathing status is improving. She continues to have shortness breath with activity but feels that she hasn't better from yesterday. She sustained a skin tear to the right pretibial area when moving in bed. She denies having any fever or chills. No sputum production. Patient is been afebrile, heart rate 70, blood pressure 174/70, pulse ox 100% on 3 L nasal cannula. Patient has changed her travel plans will not be leaving for [place] until Tuesday. 06/19: Patient's breathing status continues to improve. Patient has been afebrile, heart rate 103, blood pressure 120/71, pulse ox 97% on room air. Patient is currently on IV antibiotic form of ceftriaxone and also on azith romycin oral. She is continued on DuoNeb treatments, Pulmicort, Perforomist, IV Solu-Medrol decreased to 40 mg IV every 12 hours. Plan to monitor patient overnight and discharged home tomorrow. Objective - Vital Signs Vital signs: Vital Signs Temp 97.9 F 06/19/20 17:00 Pulse 100 06/19/20 17:00 Resp 17 06/19/20 17:00 BP 131/89 06/19/20 17:00 Pulse Ox 96 06/19/20 17:00 Intake & Output 06/18/20 06/19/20 06/19/20 18:59 06:59 18:59 Other: Voiding Method Toilet Toilet Toilet Bedside Commode Bedside Commode Bedside Commode # Voids 5 # Bowel Movements 1 - Exam Review of Systems Constitutional: Denies anorexia, Denies chronic headaches, Denies fatigue, Denies weakness Eyes: denies blurred vision, denies bulging eye, denies decreased vision Ears, nose, mouth and throat: Denies epistaxis, Denies neck lump, Denies sore throat Cardiovascular: Reports decreased exercise tolerance, Reports dyspnea on exertion, Reports shortness of breath, Denies chest pain, Denies lightheadedness, Denies rapid heart beat, Denies syncope Respiratory: Reports congestion, Reports cough, Reports cough with sputum, Repor ts dyspnea, Reports home oxygen, Reports respiratory infections, Reports wheezing, Denies sleep apnea, Denies snoring Gastrointestinal: Denies abdominal pain, Denies bloating, Denies BRBPR, Denies dyspepsia, Denies excessive gas, Denies loss of appetite, Denies melena, Denies nausea, Denies vomiting Genitourinary: Denies dysuria, Denies nocturia, Denies pelvic pain Menstruation: Reports postmenopausal Musculoskeletal: Reports gait dysfunction, Reports low back pain, Reports morning stiffness Musculoskeletal: absent: ankle pain, ankle stiffness, ankle swelling, elbow pa in, elbow stiffness, elbow swelling, foot pain, foot stiffness, foot swelling, hand pain, hand stiffness, hand swelling, hip pain, hip stiffness, hip swelling, knee pain, knee stiffness, knee swelling, shoulder pain, shoulder stiffness, shoulder swelling, wrist pain, wrist stiffness, wrist swelling Integumentary: Denies pruritus, Denies rash Neurological: Denies numbness, Denies weakness Psychiatric: Reports anxiety, Denies paranoia, Denies sadness/tearfulness, Denies sleep disturbances, Denies suicidal ideation Endocrine: Denies fatigue, Denies weight change Physical examination: HEENT: head is atraumatic normocephalic pupils were equal round reactive to light and accommodations extra ocular muscle movements were intact, sclera were intact, mucous membranes of the mouth are somewhat dry. Neck: supple, no JVP. Chest: decrease breath sounds at the bases with few ronchi , minimal expiratory wheezes no chest wall tenderness or intercostal retractions. Heart: first heart sound is depressed second heart sound is normal there FLORY 2/6 located at the left sternal border. Abdomen: soft non tender non distended positive bowel sounds, there is no hepatosplenomagaly. Extremities: there is trace edema no calf tenderness DP + 1 bilaterally. Neurologic examination: patient is awake alert and oriented X 3 CN II-XII are grossly intact, muscle power 4/5 in bilateral upper and lower extremities , deep tendon reflexes were depressed bilaterally. - Labs CBC & Chem 7: 06/18/20 06:23 06/18/20 06:23 Labs: Microbiology - Last 24 Hours (Table) 06/16/20 15:55 Blood Culture - Preliminary Blood No Growth after 72 hours Assessment and Plan Assessment: Assessment and plan: 1. Acute hypoxemic respiratory failure due to COPD exacerbation and right lower lobe pneumonia. we will contiue with O2 at 3 L NC, Duoneb 3 ml 4 times daily scheduled and as needed, Budesonide 1 mg NEB bid, we will continue with Rocephin 1 gr IVPB daily, Zithromax 250 mg orally daily, and we will start Solu-Medrol 40 mg IVP Q 12 h and start prednisone in the morning, pulmonary consult, we will continue to monitor. 2. Right lower lobe pneumonia. we will continue with Rocephin and Zithromax. 3. COPD exacerbation. we will continue with O2 support, Solu-Medrol 40 mg IVP Q 8 h and Duoneb 3 ml NEB QID along with Pulmicort 1 mg NEB BID. 4. Hypertension and hypertensive cardiovascular disease. we will continue with Losartn 25 mg orally daily, Metoprolol 75 mg orally bid. 5. Hyperlipidemia. we will continue with Lipitor 20 mg orally daily. 6. Paroxysmal atrial fibrillation. we will continue with Digoxin 125 mcg orally daily, Cardizem CD 180 mg orally daily, Metoprolol 75 mg orally bid and Eliquis 2.5 mg orally bid. 7. Chronic diastolic heart failure. we will continue with Lasix 20 mg orally bid, LOsartan 25 mg orally daily and Metoprolol 75 mg orally bid. 8. Chronic hypoxemic respiratory failure due to moderate to svere COPD. we will continue with above treatment. 9. GERD. we will continue with Pecid 20 mg orally daily. 10. CAD . we will continue with Metoprolol 75 mg orally bid, Lipitor 20 mg orally daily and IMdur 15 mg orally daily. 11. DVT prophylaxis. we will continue with Eliquis 2.5 mg orally bid. 12. GI prophylxis. we will contiue with Pepcid 20 mg orally daily. 13. Full code.
[2020-06-19] MEDS: MELATONIN 3 MG TABLET PO SCH (20:28)
[2020-06-19] MEDS: LOSARTAN 25 MG TAB PO SCH (20:28)
[2020-06-19] MEDS: ATORVASTATIN 20 MG TAB PO SCH (20:28)
[2020-06-19] MEDS ORDERED: methylPREDNISolone SOD SUCCI 40 MG/ML 1 ML VIAL IV SCH (21:00)
[2020-06-20] MEDS: IPRATROPIUM-ALBUTEROL 3 ML NEB INHALATION SCH ×3 (08:05→16:38)
[2020-06-20] MEDS: FORMOTEROL FUMARATE 20 MCG/2 ML NEBU INHALATION SCH (08:05)
[2020-06-20] MEDS: BUDESONIDE 1 MG/2 ML NEBU INHALATION SCH (08:05)
[2020-06-20] MEDS: METOPROLOL TARTRATE 25 MG TAB PO SCH (08:13)
[2020-06-20] MEDS: ISOSORBIDE MONONITRATE ER 15 MG TAB PO SCH (08:13)
[2020-06-20] MEDS: PANTOPRAZOLE 40 MG TABLET PO SCH (08:13)
[2020-06-20] MEDS: METOPROLOL TARTRATE 50 MG TAB PO SCH (08:14)
[2020-06-20] MEDS: FUROSEMIDE 40 MG TAB PO SCH (08:14)
[2020-06-20] MEDS: DILTIAZEM CD 180 MG CAP.ER.24H PO SCH (08:14)
[2020-06-20] MEDS: APIXABAN 2.5 MG TABLET PO SCH (08:14)
[2020-06-20] MEDS: FAMOTIDINE 20 MG TAB PO SCH (08:14)
[2020-06-20] MEDS: DIGOXIN 125 MCG TAB PO SCH (08:14)
[2020-06-20] MEDS: AZITHROMYCIN 500 MG TAB PO SCH (08:14)
[2020-06-20] MEDS ORDERED: predniSONE 20 MG TAB PO SCH (09:00)
--- NOTE | 2020-06-20 13:21 | P.PN ---
Subjective Progress Note Date: 06/20/20 Principal diagnosis: Acute exacerbation of chronic obstructive pulmonary disease The patient is seen today 06/19/2020 in follow-up on the regular medical floor. She is currently sitting up at the bedside. Awake and alert in no acute distress. Maintaining good O2 saturations in the 90s on 2 L/m per nasal cannula. She is breathing easier today compared to yesterday. She's been treated for both COPD and congestive heart failure. Her CoVID 19 screen was negative. She is afebrile. Hemodynamically stable. Blood culture reveals no growth. Remains on antibiotics in the form of ceftriaxone and azithromycin. Continue on DuoNeb inhalations, Pulmicort and Perforomist inhalations, IV Solu- Medrol. Diuretics. Anticoagulated with Eliquis. The patient is seen today 06/20/2020 in follow-up on the regular medical floor. She is currently sitting up in a chair at the bedside. Awake and alert in no acute distress. She is maintaining O2 saturations in the mid 90s on 2 L/m per nasal cannula. She's been afebrile. Blood culture reveals no growth. She's been continued on ceftriaxone and azithromycin, prednisone, bronchodilators, anticoagulated with Eliquis. Objective - Vital Signs Vital signs: Vital Signs Temp 98.1 F 06/20/20 10:42 Pulse 122 H 06/20/20 11:40 Resp 20 06/20/20 10:42 BP 124/74 06/20/20 10:42 Pulse Ox 96 06/20/20 10:42 Intake & Output 06/19/20 06/20/20 06/20/20 18:59 06:59 18:59 Intake Total 1130 500 Balance 1130 500 Intake: Intake, IV Titration 50 Amount cefTRIAXone 1 gm In 50 Sodium Chloride 0.9% 50 ml @ 100 mls/hr IVPB Q24HR [facility] Rx#:[id number] Oral 1080 500 Other: Voiding Method Toilet Toilet Bedside Commode Bedside Commode # Voids 4 2 - Exam GENERAL EXAM: Alert, active, pleasant 89-year-old female patient, on 2 L nasal cannula, comfortable in no apparent distress. HEAD: Normocephalic. EYES: Normal reaction of pupils, equal size. NOSE: Clear with pink turbinates. THROAT: No erythema or exudates. NECK: No masses, no JVD. CHEST: No chest wall deformity. LUNGS: Equal air entry with faint end expiratory wheeze, basilar crackles, diminished CVS: S1 and S2 normal with no audible murmur, regular rhythm. ABDOMEN: No hepatosplenomegaly, normal bowel sounds, no guarding or rigidity. SPINE: No scoliosis or deformity SKIN: No rashes CENTRAL NERVOUS SYSTEM: No focal deficits, tone is normal in all 4 extremities. EXTREMITIES: There is no peripheral edema. No clubbing, no cyanosis. Peripheral pulses are intact. - Labs CBC & Chem 7: 06/18/20 06:23 06/18/20 06:23 Labs: Microbiology - Last 24 Hours (Table) 06/16/20 15:55 Blood Culture - Preliminary Blood No Growth after 72 hours Assessment and Plan Assessment: 1 Acute exacerbation of chronic obstructive pulmonary disease complicated by mild purulent tracheobronchitis 2 Acute exacerbation of diastolic congestive heart failure 3 Atrial fibrillation, anticoagulated with Eliquis 4 Hypertension 5 Degenerative joint disease 6 History of macular degeneration 7 Osteoporosis 8 Hyperlipidemia 9 Gastroesophageal reflux disease Plan: The patient was seen and evaluated by Dr. Plasencia She is stable from the pulmonary standpoint Complete a course of antibiotics Complete a prednisone taper Follow-up in the office 1-2 weeks post discharge I, the cosigning physician, performed a history & physical examination of the patient. Lungs sounds with faint end expiratory wheeze, basilar crackles, diminished. Maintaining good O2 saturations in the 90s on 2 L/m per nasal cannula. I discussed the assessment and plan of care with my nurse practitioner, Yessica Doe. I attest to the above note as dictated by her.
--- NOTE | 2020-06-20 15:45 | P.DS ---
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 and she was hypoxemic and she was placed on 4 L NC instead of her regular 2 L NC, and her CXR showed right lower lobe infiltrates suggestive of pneumonia, she was started on IV Rocephin and Zithromax and was started on Solu-Medrol 40 mg IVP Q 8 and pulmonary consult for . 06/18: Patient's breathing status is improving. She continues to have shortness breath with activity but feels that she hasn't better from yesterday. She sustained a skin tear to the right pretibial area when moving in bed. She denie s having any fever or chills. No sputum production. Patient is been afebrile, heart rate 70, blood pressure 174/70, pulse ox 100% on 3 L nasal cannula. Patient has changed her travel plans will not be leaving for [place] until Tuesday. 06/19: Patient's breathing status continues to improve. Patient has been afebrile, heart rate 103, blood pressure 120/71, pulse ox 97% on room air. Patient is currently on IV antibiotic form of ceftriaxone and also on azithromycin oral. She is continued on DuoNeb treatments, Pulmicort, Perforomist, IV Solu-Medrol decreased to 40 mg IV every 12 hours. Plan to monitor patient overnight and discharged home tomorrow. discharge diagnoses: 1. Acute hypoxemic respiratory failure due to COPD exacerbation and right lower lobe pneumonia. 2. Right lower lobe pneumonia. 3. COPD exacerbation. we will continue with O2 support. 4. Hypertension and hypertensive cardiovascular disease. 5. Hyperlipidemia. 6. Paroxysmal atrial fibrillation. 7. Chronic diastolic heart failure. 8. 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 9. GERD. 10. CAD 11. right costa skin tear. Patient Condition at Discharge: Stable Plan - Discharge Summary Discharge Rx Participant: No New Discharge Prescriptions: No Action Apixaban [Eliquis] 2.5 mg PO BID tablet Famotidine [Pepcid] 20 mg PO BID Potassium Chloride [Klor-Con 10] 10 meq PO DAILY@1600 Losartan [Cozaar] 25 mg PO HS #0 Melatonin 3 mg PO HS Ipratropium-Albuterol Nebulize [Duoneb 0.5 mg-3 mg/3 ml Soln] 3 ml INHALATION RT-Q4H PRN ampul.neb PRN Reason: Shortness Of Breath Budesonide [Pulmicort] 1 mg INHALATION RT-BID nebu Furosemide [Lasix] 20 mg PO BID Formoterol Fumarate [Perforomist] 20 mcg INHALATION RT-BID Risedronate Sodium [Risedronate Sodium Dr] 35 mg PO MO predniSONE 10 mg PO DAILY Omeprazole 20 mg PO DAILY Isosorbide Mononitrate ER [Imdur] 15 mg PO DAILY Diltiazem HCl [Diltiazem HCl 24Hr ER] 180 mg PO DAILY Digoxin [Digitek] 125 mcg PO DAILY Atorvastatin [Lipitor] 20 mg PO HS Albuterol Inhaler [Ventolin Hfa Inhaler] 1 - 2 puff INHALATION RT-Q6H PRN PRN Reason: Shortness Of Breath Metoprolol Tartrate [Lopressor] 25 mg PO BID Metoprolol Tartrate [Lopressor] 50 mg PO BID Discharge Medication List Apixaban [Eliquis] 2.5 mg PO BID tablet 08/11/17 [Rx] Famotidine [Pepcid] 20 mg PO BID 10/23/17 [History] Potassium Chloride [Klor-Con 10] 10 meq PO DAILY@1600 10/23/17 [History] Losartan [Cozaar] 25 mg PO HS #0 06/23/18 [Rx] Melatonin 3 mg PO HS 07/10/18 [History] Budesonide [Pulmicort] 1 mg INHALATION RT-BID nebu 07/19/18 [Rx] Ipratropium-Albuterol Nebulize [Duoneb 0.5 mg-3 mg/3 ml Soln] 3 ml INHALATION RT-Q4H PRN ampul.neb 07/19/18 [Rx] Albuterol Inhaler [Ventolin Hfa Inhaler] 1 - 2 puff INHALATION RT-Q6H PRN 06/16/20 [History] Atorvastatin [Lipitor] 20 mg PO HS 06/16/20 [History] Digoxin [Digitek] 125 mcg PO DAILY 06/16/20 [History] Diltiazem HCl [Diltiazem HCl 24Hr ER] 180 mg PO DAILY 06/16/20 [History] Formoterol Fumarate [Perforomist] 20 mcg INHALATION RT-BID 06/16/20 [History] Furosemide [Lasix] 20 mg PO BID 06/16/20 [History] Isosorbide Mononitrate ER [Imdur] 15 mg PO DAILY 06/16/20 [History] Metoprolol Tartrate [Lopressor] 25 mg PO BID 06/16/20 [History] Metoprolol Tartrate [Lopressor] 50 mg PO BID 06/16/20 [History] Omeprazole 20 mg PO DAILY 06/16/20 [History] Risedronate Sodium [Risedronate Sodium Dr] 35 mg PO MO 06/16/20 [History] predniSONE 10 mg PO DAILY 06/16/20 [History] Follow up Appointment(s)/Referral(s): Phoenix Gutiérrez MD [Primary Care Provider] - 1-2 days
[2020-06-20] MEDS: POTASSIUM CHLORIDE ER 10 MEQ TAB.ER.PRT PO SCH (16:11)
[2020-06-20 16:39] VITALS: RESP 16
[2020-06-20 16:42] VITALS: BP 151/88; TEMP 97.7
[2020-06-20 16:47] VITALS: PULSE 109
== END 2020-06-20 18:01 | disposition home or self-care (01) | DRG 193 ==
LOC: EC 12:44 → 6NMEDSUR 15:19
PROVIDERS: ADMIT Internal Medicine; ATTEND Internal Medicine
DX: J18.9 Pneumonia, unspecified organism (principal); J96.21 Acute and chronic respiratory failure with hypoxia; I50.33 Acute on chronic diastolic (congestive) heart failure; J44.1 Chronic obstructive pulmonary disease with (acute) exacerbation; J44.0 Chronic obstructive pulmonary disease with (acute) lower respiratory infection; Z20.828 Contact with and (suspected) exposure to other viral communicable diseases; M19.90 Unspecified osteoarthritis, unspecified site; K21.9 Gastro-esophageal reflux disease without esophagitis; M81.0 Age-related osteoporosis without current pathological fracture; I11.0 Hypertensive heart disease with heart failure; E78.5 Hyperlipidemia, unspecified; G47.00 Insomnia, unspecified; I25.10 Atherosclerotic heart disease of native coronary artery without angina pectoris; I48.0 Paroxysmal atrial fibrillation; H35.30 Unspecified macular degeneration; L98.9 Disorder of the skin and subcutaneous tissue, unspecified; Z85.828 Personal history of other malignant neoplasm of skin; Z99.81 Dependence on supplemental oxygen; Z95.0 Presence of cardiac pacemaker; Z87.891 Personal history of nicotine dependence; Z82.49 Family history of ischemic heart disease and other diseases of the circulatory system; Z80.0 Family history of malignant neoplasm of digestive organs; Z79.899 Other long term (current) drug therapy; Z79.51 Long term (current) use of inhaled steroids; Z79.01 Long term (current) use of anticoagulants; Z88.2 Allergy status to sulfonamides; Z91.013 Allergy to seafood; Z90.89 Acquired absence of other organs; Z98.42 Cataract extraction status, left eye; Z98.41 Cataract extraction status, right eye; Z98.890 Other specified postprocedural states
CPT/HCPCS: 36415; 71045; 71046; 80053; 80162; 83605; 83735; 83880; 84484; 85025; 85610; 85730; 87040; 87635; 93005; 94640; 94760; 96365; 99285

== ENCOUNTER 2021-01-21 07:58 | Inpatient (IN) | payer MEDICARE ==
[2021-01-21] MEDS ORDERED: methylPREDNISolone SOD SUCCI 125 MG/2 ML VIAL IV STA (08:19)
[2021-01-21] MEDS ORDERED: ALBUTEROL NEBULIZED 2.5 MG/3 ML INHALATION STA (08:19)
[2021-01-21] MEDS ORDERED: IPRATROPIUM 0.5 MG/2.5 ML NEBU INHALATION STA (08:19)
--- NOTE | 2021-01-21 08:35 | ED ---
General Adult HPI - General Chief complaint: Shortness of Breath Stated complaint: SOB Time Seen by Provider: 01/21/21 08:06 Source: patient, RN notes reviewed, old records reviewed Mode of arrival: ambulatory Limitations: no limitations - History of Present Illness Initial comments: 89-year-old female history of itchy fibrillation, CHF, COPD presenting for evaluation of increased dyspnea over the past several days. She states it worsened overnight. She's been using her home nebulized treatments without improvement. She has no chest pain. No abdominal pain. No lower extremity pain or swelling. She's had no increased cough, no fever. - Related Data Home Medications Medication Instructions Recorded Confirmed Famotidine [Pepcid] 20 mg PO AC-BID 10/23/17 01/21/21 Potassium Chloride [Klor-Con 10] 10 meq PO BID-W/MEALS 10/23/17 01/21/21 Albuterol Inhaler [Ventolin Hfa 1 - 2 puff INHALATION RT-Q6H PRN 06/16/20 01/21/21 Inhaler] Atorvastatin [Lipitor] 20 mg PO HS 06/16/20 01/21/21 Digoxin [Digitek] 125 mcg PO W/SUPPER 06/16/20 01/21/21 Furosemide [Lasix] 20 mg PO BID@0800,1200 06/16/20 01/21/21 Isosorbide Mononitrate ER [Imdur] 15 mg PO DAILY 06/16/20 01/21/21 Metoprolol Tartrate [Lopressor] 25 mg PO BID 06/16/20 01/21/21 Metoprolol Tartrate [Lopressor] 50 mg PO BID 06/16/20 01/21/21 Omeprazole 20 mg PO DAILY 06/16/20 01/21/21 Risedronate Sodium [Risedronate 35 mg PO MO 06/16/20 01/21/[address]] predniSONE 5 mg PO DAILY 06/16/20 01/21/21 Calcium Carbonate [Calcium] 600 mg PO W/LUNCH 01/21/21 01/21/21 Cyanocobalamin (Vitamin B-12) 1,000 mcg PO W/LUNCH 01/21/21 01/21/21 [Vitamin B-12] Dapagliflozin Propanediol [Farxiga] 5 mg PO DAILY 01/21/21 01/21/21 Diltiazem HCl [Cartia Xt] 180 mg PO HS 01/21/21 01/21/21 Furosemide [Lasix] 20 mg PO BID@0800,1200 01/21/21 01/21/21 Ipratropium-Albuterol Nebulize 3 ml INHALATION RT-Q6H 01/21/21 01/21/21 [Duoneb 0.5 mg-3 mg/3 ml Soln] Losartan [Cozaar] 25 mg PO DAILY 01/21/21 01/21/21 Magnesium Oxide [Mag-Ox] 400 mg PO W/LUNCH 01/21/21 01/21/21 Melatonin 5 mg PO HS 01/21/21 01/21/21 metFORMIN HCL 1,000 mg PO W/SUPPER 01/21/21 01/21/21 Previous Rx's Medication Instructions Recorded Apixaban [Eliquis] 2.5 mg PO BID tablet 08/11/17 Budesonide [Pulmicort] 1 mg INHALATION RT-BID nebu 07/19/18 Allergies Allergy/AdvReac Type Severity Reaction Status Date / Time Sulfa (Sulfonamide Allergy Unknown Verified 01/21/21 09:09 Antibiotics) Childhood shellfish derived [Shellfish] AdvReac Nausea & Verified 01/21/21 09:09 Vomiting & Diarrhea Review of Systems ROS Statement: Those systems with pertinent positive or pertinent negative responses have been documented in the HPI. ROS Other: All systems not noted in ROS Statement are negative. Past Medical History Past Medical History: Atrial Fibrillation, Cancer, Heart Failure, COPD, GERD/Reflux, Hyperlipidemia, Hypertension, Osteoarthritis (OA) Additional Past Medical History / Comment(s): skin cancer on scalp, macular degeneration History of Any Multi-Drug Resistant Organisms: None Reported Past Surgical History: Hernia Repair, Pacemaker, Tonsillectomy Additional Past Surgical History / Comment(s): skin cancer removed from scalp, andrew cataracts Past Anesthesia/Blood Transfusion Reactions: No Reported Reaction Type of Cardiac Device: Permanent Pacemaker Device Placement Date:: 2017 Past Psychological History: No Psychological Hx Reported Smoking Status: Former smoker Past Alcohol Use History: Occasional Past Drug Use History: None Reported - Past Family History Father Family Medical History: Coronary Artery Disease (CAD) Additional Family Medical History / Comment(s): Father at age 91 with history of heart disease. Mother Family Medical History: Cancer Additional Family Medical History / Comment(s): Mother at age 87 from pancreatic cancer. Brother(s) Additional Family Medical History / Comment(s): Patient has 1 brother that at age 93 from liver cancer. Sister(s) Additional Family Medical History / Comment(s): Patient has 2 sisters with no major medical problems. Daughter(s) Additional Family Medical History / Comment(s): Patient has a total of 4 children, 3 daughters and 1 son. One daughter at a young age and a motor vehicle accident. General Exam Limitations: no limitations General appearance: alert, in distress (mild resp distress) Head exam: Present: atraumatic, normocephalic Eye exam: Present: normal appearance, PERRL Neck exam: Present: normal inspection. Absent: tenderness, meningismus Respiratory exam: Present: respiratory distress, wheezes, accessory muscle use, decreased breath sounds Cardiovascular Exam: Present: regular rate, irregular rhythm GI/Abdominal exam: Present: soft. Absent: distended, tenderness, guarding, rebound Extremities exam: Present: normal inspection, normal capillary refill. Absent: pedal edema, calf tenderness Neurological exam: Present: alert, oriented X3. Absent: motor sensory deficit Psychiatric exam: Present: normal affect, normal mood Skin exam: Present: warm, dry, intact. Absent: cyanosis, diaphoretic Course Vital Signs 01/21/21 01/21/21 01/21/21 08:00 08:17 08:35 Temperature 97.7 F Pulse Rate 87 105 H 92 Respiratory 26 H 28 H Rate Blood Pressure 152/66 143/89 O2 Sat by Pulse 92 L 97 Oximetry 01/21/21 01/21/21 01/21/21 08:36 09:02 09:34 Temperature Pulse Rate 90 82 Respiratory 28 H 24 Rate Blood Pressure 115/85 O2 Sat by Pulse 94 L Oximetry 01/21/21 10:04 Temperature Pulse Rate 100 Respiratory 22 Rate Blood Pressure 132/83 O2 Sat by Pulse 94 L Oximetry EKG Findings - EKG Comments: EKG Findings:: EKG: Atrial flutter with variable AV block, low voltage, ST segment and depression and T-wave inversion in the precordial leads V5 and V6. Rate of 92, QRS duration 92, QTC 413. Medical Decision Making - Medical Decision Making 89-year-old female presenting with increased dyspnea, patient wheezing bilaterally with decreased air entry, accessory muscle use. Workup reveals mild leukocytosis. She does have history of intracranial fibrillation and is anticoagulated. X-ray negative for pneumothorax, large consolidated pneumonia. Patient is covered with antibiotics for COPD exacerbation. IV steroids, albuterol, Atrovent. Case discussed with Dr. Gutiérrez who will admit. - Lab Data Result diagrams: 01/21/21 08:22 01/21/21 08:22 Lab Results 01/21/21 01/21/21 01/21/21 Range/Units 08:22 08:22 08:22 WBC 12.1 H (3.8-10.6) k/uL RBC 5.06 (3.80-5.40) m/uL Hgb 15.2 (11.4-16.0) gm/dL Hct 48.2 H (34.0-46.0) % MCV 95.2 (80.0-100.0) fL MCH 30.1 (25.0-35.0) pg MCHC 31.6 (31.0-37.0) g/dL RDW 14.8 (11.5-15.5) % Plt Count 234 (150-450) k/uL MPV 7.1 Neutrophils % 71 % Lymphocytes % 20 % Monocytes % 5 % Eosinophils % 2 % Basophils % 0 % Neutrophils # 8.6 H (1.3-7.7) k/uL Lymphocytes # 2.4 (1.0-4.8) k/uL Monocytes # 0.6 (0-1.0) k/uL Eosinophils # 0.2 (0-0.7) k/uL Basophils # 0.1 (0-0.2) k/uL PT 10.7 (9.0-12.0) sec INR 1.0 (<1.2) APTT 27.1 (22.0-30.0) sec Sodium 139 (137-145) mmol/L Potassium 4.3 (3.5-5.1) mmol/L Chloride 101 (98-107) mmol/L Carbon Dioxide 31 H (22-30) mmol/L Anion Gap 7 mmol/L BUN 19 H (7-17) mg/dL Creatinine 0.96 (0.52-1.04) mg/dL Est GFR (CKD-EPI)AfAm 61 (>60 ml/min/1.73 sqM) Est GFR (CKD-EPI)NonAf 53 (>60 ml/min/1.73 sqM) Glucose 151 H (74-99) mg/dL Plasma Lactic Acid Lion (0.7-2.0) mmol/L Calcium 8.8 (8.4-10.2) mg/dL Magnesium 2.5 H (1.6-2.3) mg/dL Total Bilirubin 0.6 (0.2-1.3) mg/dL AST 25 (14-36) U/L ALT 25 (4-34) U/L Alkaline Phosphatase 60 (38-126) U/L Troponin I (0.000-0.034) ng/mL NT-Pro-B Natriuret Pep pg/mL Total Protein 6.0 L (6.3-8.2) g/dL Albumin 4.1 (3.5-5.0) g/dL 01/21/21 01/21/21 01/21/21 Range/Units 08:22 08:22 08:22 WBC (3.8-10.6) k/uL RBC (3.80-5.40) m/uL Hgb (11.4-16.0) gm/dL Hct (34.0-46.0) % MCV (80.0-100.0) fL MCH (25.0-35.0) pg MCHC (31.0-37.0) g/dL RDW (11.5-15.5) % Plt Count (150-450) k/uL MPV Neutrophils % % Lymphocytes % % Monocytes % % Eosinophils % % Basophils % % Neutrophils # (1.3-7.7) k/uL Lymphocytes # (1.0-4.8) k/uL Monocytes # (0-1.0) k/uL Eosinophils # (0-0.7) k/uL Basophils # (0-0.2) k/uL PT (9.0-12.0) sec INR (<1.2) APTT (22.0-30.0) sec Sodium (137-145) mmol/L Potassium (3.5-5.1) mmol/L Chloride (98-107) mmol/L Carbon Dioxide (22-30) mmol/L Anion Gap mmol/L BUN (7-17) mg/dL Creatinine (0.52-1.04) mg/dL Est GFR (CKD-EPI)AfAm (>60 ml/min/1.73 sqM) Est GFR (CKD-EPI)NonAf (>60 ml/min/1.73 sqM) Glucose (74-99) mg/dL Plasma Lactic Acid Lion 2.0 (0.7-2.0) mmol/L Calcium (8.4-10.2) mg/dL Magnesium (1.6-2.3) mg/dL Total Bilirubin (0.2-1.3) mg/dL AST (14-36) U/L ALT (4-34) U/L Alkaline Phosphatase (38-126) U/L Troponin I <0.012 (0.000-0.034) ng/mL NT-Pro-B Natriuret Pep 2830 pg/mL Total Protein (6.3-8.2) g/dL Albumin (3.5-5.0) g/dL Disposition Clinical Impression: Acute exacerbation of chronic obstructive pulmonary disease (COPD) Disposition: ADMITTED IP TO THIS [facility] Condition: Stable Is patient prescribed a controlled substance at d/c from ED?: No Referrals: Phoenix Gutiérrez MD [Primary Care Provider] - 1-2 days Decision to Admit Reason: Admit from EC Decision Date: 01/21/21 Decision Time: 10:12
[2021-01-21 08:38] LABS: Basophils # (A) 0.1 k/uL (0-0.2); Basophils % (A) 0 %; Eosinophils # (A) 0.2 k/uL (0-0.7); Eosinophils % (A) 2 %; HCT 48.2 % (34.0-46.0); HGB 15.2 gm/dL (11.4-16.0); Lymphocytes # (A) 2.4 k/uL (1.0-4.8); Lymphocytes % (A) 20 %; MCH 30.1 pg (25.0-35.0); MCHC 31.6 g/dL (31.0-37.0); MCV 95.2 fL (80.0-100.0); Mean Platelet Volume 7.1; Monocytes # (A) 0.6 k/uL (0-1.0); Monocytes % (A) 5 %; Neutrophils # (A) 8.6 k/uL (1.3-7.7); Neutrophils % (A) 71 %; Platelet Count 234 k/uL (150-450); RBC 5.06 m/uL (3.80-5.40); RDW 14.8 % (11.5-15.5); WBC 12.1 k/uL (3.8-10.6)
[2021-01-21 08:52] LABS: Albumin 4.1 g/dL (3.5-5.0); Calcium 8.8 mg/dL (8.4-10.2); Magnesium 2.5 mg/dL (1.6-2.3); Potassium 4.3 mmol/L (3.5-5.1); Total Bilirubin 0.6 mg/dL (0.2-1.3)
[2021-01-21 09:02] LABS: Partial Thromboplastin Time 27.1 sec (22.0-30.0); Prothrombin Time 10.7 sec (9.0-12.0)
--- NOTE | 2021-01-21 10:02 | XR ---
EXAMINATION TYPE: XR chest 2V DATE OF EXAM: 01/21/2021 COMPARISON: 06/17/2020 HISTORY: Difficulty breathing TECHNIQUE: Frontal and lateral views of the chest are obtained. FINDINGS: There is interstitial prominence. The lungs are hyperinflated. There is no large airspace disease. Cardiac silhouette is unchanged in size with pacer. IMPRESSION: No acute cardiopulmonary process. Chronic changes, as described.
[2021-01-21] MEDS ORDERED: AZITHROMYCIN 500 MG in SODIUM CHLORIDE 0.9% 250 ML IVPB STA (10:09)
[2021-01-21] MEDS ORDERED: IPRATROPIUM-ALBUTEROL 3 ML NEB INHALATION PRN (10:09)
[2021-01-21] MEDS ORDERED: cefTRIAXone IN SWFI 1,000 MG/10 ML SYRINGE IVP STA (10:09)
[2021-01-21] MEDS: SODIUM CHLORIDE 0.9% 1,000 ML IV SCH (10:32)
[2021-01-21] MEDS: IPRATROPIUM-ALBUTEROL 3 ML NEB INHALATION SCH ×3 (11:32→20:35)
[2021-01-21] MEDS ORDERED: ALBUTEROL NEBULIZED 2.5 MG/3 ML INHALATION PRN (12:31)
[2021-01-21] MEDS ORDERED: predniSONE 5 MG TAB PO SCH (12:45)
[2021-01-21] MEDS: APIXABAN 2.5 MG TABLET PO SCH ×2 (13:33→21:14)
[2021-01-21] MEDS: LOSARTAN 25 MG TAB PO SCH (13:33)
[2021-01-21] MEDS: METOPROLOL TARTRATE 50 MG TAB PO SCH ×2 (13:33→21:14)
[2021-01-21] MEDS: METOPROLOL TARTRATE 25 MG TAB PO SCH ×2 (13:34→21:14)
[2021-01-21] MEDS: ISOSORBIDE MONONITRATE ER 15 MG TAB PO SCH (13:34)
[2021-01-21] MEDS ORDERED: IPRATROPIUM-ALBUTEROL 3 ML NEB INHALATION SCH (14:00)
--- NOTE | 2021-01-21 15:02 | P.CNPUL ---
History of Present Illness Consult date: 01/21/21 Requesting physician: Phoenix Gutiérrez Reason for consult: dyspnea, COPD, other Chief complaint: Shortness of breath. History of present illness: Pulmonary consult dated 01/21/2021. 89-year-old female, with a history of atrial fibrillation, heart failure, and COPD, who presents to the emergency department on January 21, complaining of shortness of breath. She states that her shortness of breath is been present for at least a couple weeks. She saw my partner for her COPD 3 weeks ago, and at that time she was doing well. She states that over the last couple days, things seem to have gotten worse. She was told in the emergency room that she had atrial fibrillation, and that was part of the problem. She does not have a cough to any great extent. She does not produce any phlegm. There is no fever or chills. She denies chest pain or chest discomfort. She does use a number breathing medications are home including albuterol sulfate, budesonide, and Perforomist. She states that those medications have not really been helping her that much. Current laboratory data includes a white count 12.1, hemoglobin 15.2, hematocrit 48.2, and platelet count 234,000. PT, INR, and PTT are normal. Sodium 139, potassium 4.3, chlorides 101, CO2 31, anion gap 7, BUN 19, and creatinine 0.96. Troponin was less than 0.012 and N-terminal proBNP was 2830. Chest x-ray was interpreted by the radiologist as showing no acute cardiopulmonary disease. In my opinion, there is a small component of fluid o verload. Review of Systems REVIEW OF SYSTEMS: CONSTITUTIONAL: [Negative.] NEUROLOGIC: [ Negative.] HEENT: [ Negative.] CARDIAC: [Negative.] PULMONARY: Shortness of breath over the last couple of weeks. GI: [Negative.] : [Negative.] RHEUMATOLOGIC: [ Negative.] IMMUNOLOGIC: [ Negative.] ENDOCRINE: [Negative. ] DERMATOLOGIC: [Negative.] Past Medical History Past Medical History: Atrial Fibrillation, Cancer, Heart Failure, COPD, GERD/Reflux, Hyperlipidemia, Hypertension, Osteoarthritis (OA) Additional Past Medical History / Comment(s): skin cancer on scalp, macular degeneration History of Any Multi-Drug Resistant Organisms: None Reported Past Surgical History: Hernia Repair, Pacemaker, Tonsillectomy Additional Past Surgical History / Comment(s): skin cancer removed from scalp, andrew cataracts Past Anesthesia/Blood Transfusion Reactions: No Reported Reaction Type of Cardiac Device: Permanent Pacemaker Device Placement Date:: 2017 Past Psychological History: No Psychological Hx Reported Smoking Status: Former smoker Past Alcohol Use History: Occasional Past Drug Use History: None Reported - Past Family History Father Family Medical History: Coronary Artery Disease (CAD) Additional Family Medical History / Comment(s): Father at age 91 with history of heart disease. Mother Family Medical History: Cancer Additional Family Medical History / Comment(s): Mother at age 87 from pancreatic cancer. Brother(s) Additional Family Medical History / Comment(s): Patient has 1 brother that at age 93 from liver cancer. Sister(s) Additional Family Medical History / Comment(s): Patient has 2 sisters with no major medical problems. Daughter(s) Additional Family Medical History / Comment(s): Patient has a total of 4 children, 3 daughters and 1 son. One daughter at a young age and a motor vehicle accident. Medications and Allergies Home Medications Medication Instructions Recorded Confirmed Type Apixaban [Eliquis] 2.5 mg PO BID tablet 08/11/17 01/21/21 Rx Famotidine [Pepcid] 20 mg PO AC-BID 10/23/17 01/21/21 History Potassium Chloride [Klor-Con 10] 10 meq PO BID-W/MEALS 10/23/17 01/21/21 History Budesonide [Pulmicort] 1 mg INHALATION RT-BID nebu 07/19/18 01/21/21 Rx Albuterol Inhaler [Ventolin Hfa 1 - 2 puff INHALATION RT-Q6H PRN 06/16/20 01/21/21 History Inhaler] Atorvastatin [Lipitor] 20 mg PO HS 06/16/20 01/21/21 History Digoxin [Digitek] 125 mcg PO W/SUPPER 06/16/20 01/21/21 History Furosemide [Lasix] 20 mg PO BID@0800,1200 06/16/20 01/21/21 History Isosorbide Mononitrate ER [Imdur] 15 mg PO DAILY 06/16/20 01/21/21 History Metoprolol Tartrate [Lopressor] 25 mg PO BID 06/16/20 01/21/21 History Metoprolol Tartrate [Lopressor] 50 mg PO BID 06/16/20 01/21/21 History Omeprazole 20 mg PO DAILY 06/16/20 01/21/21 History Risedronate Sodium [Risedronate 35 mg PO MO 06/16/20 01/21/[address]] predniSONE 5 mg PO DAILY 06/16/20 01/21/21 History Calcium Carbonate [Calcium] 600 mg PO W/LUNCH 01/21/21 01/21/21 History Cyanocobalamin (Vitamin B-12) 1,000 mcg PO W/LUNCH 01/21/21 01/21/21 History [Vitamin B-12] Dapagliflozin Propanediol [Farxiga] 5 mg PO DAILY 01/21/21 01/21/21 History Diltiazem HCl [Cartia Xt] 180 mg PO HS 01/21/21 01/21/21 History Furosemide [Lasix] 20 mg PO BID@0800,1200 01/21/21 01/21/21 History Ipratropium-Albuterol Nebulize 3 ml INHALATION RT-Q6H 01/21/21 01/21/21 History [Duoneb 0.5 mg-3 mg/3 ml Soln] Losartan [Cozaar] 25 mg PO DAILY 01/21/21 01/21/21 History Magnesium Oxide [Mag-Ox] 400 mg PO W/LUNCH 01/21/21 01/21/21 History Melatonin 5 mg PO HS 01/21/21 01/21/21 History metFORMIN HCL [Glucophage] 1,000 mg PO W/SUPPER 01/21/21 01/21/21 History Allergies Allergy/AdvReac Type Severity Reaction Status Date / Time Sulfa (Sulfonamide Allergy Unknown Verified 01/21/21 09:09 Antibiotics) Childhood shellfish derived [Shellfish] AdvReac Nausea & Verified 01/21/21 09:09 Vomiting & Diarrhea Physical Exam Osteopathic Statement: *. No significant issues noted on an osteopathic structural exam other than those noted in the History and Physical/Consult. Vitals: Vital Signs Temp Pulse Pulse Resp BP BP BP 01/21/21 13:12 98.1 F 115 H 34 H 111/65 01/21/21 11:41 107 H 01/21/21 11:32 110 H 01/21/21 10:59 97.8 F 125 H 32 H 117/76 01/21/21 10:37 97.7 F 96 22 141/57 01/21/21 10:36 96 22 141/57 01/21/21 10:04 100 22 132/83 01/21/21 09:34 82 24 115/85 01/21/21 09:02 90 01/21/21 08:36 28 H 01/21/21 08:35 92 01/21/21 08:17 105 H 28 H 143/89 01/21/21 08:00 97.7 F 87 26 H 152/66 Pulse Ox 01/21/21 13:12 95 01/21/21 11:41 01/21/21 11:32 01/21/21 10:59 97 01/21/21 10:37 96 01/21/21 10:36 96 01/21/21 10:04 94 L 01/21/21 09:34 94 L 01/21/21 09:02 01/21/21 08:36 01/21/21 08:35 01/21/21 08:17 97 01/21/21 08:00 92 L Intake and Output 01/20/21 01/21/21 01/21/21 22:59 06:59 14:59 Other: # Bowel Movements 1 Weight 81.647 kg Oriented 3, mild conversational dyspnea, without use of accessory muscles or audible wheezing. HEENT examination is grossly unremarkable. Neck supple. Full range of motion. No adenopathy thyromegaly or neck vein distention. Cardiovascular examination reveals irregular rhythm and rate. S1-S2 normal. No S3 or S4. No discernible murmur noted. Heart rate 1:15. Heart sounds distant. Lungs reveal very diminished breath sounds. No rhonchi, crackles, or wheezes. Breath sounds equal bilaterally. Abdomen soft bowel sounds are heard. No masses or tenderness. Extremities are intact. No cyanosis clubbing or edema. Skin is without rash or lesion. Neurologic examination is brief but nonfocal. Results - Laboratory Findings CBC and BMP: 01/21/21 08:22 01/21/21 08:22 PT/INR, D-dimer PT 10.7 sec (9.0-12.0) 01/21/21 08:22 INR 1.0 (<1.2) 01/21/21 08:22 Abnormal lab findings: Abnormal Labs 01/21/21 01/21/21 08:22 08:22 WBC 12.1 H Hct 48.2 H Neutrophils # 8.6 H Carbon Dioxide 31 H BUN 19 H Glucose 151 H Magnesium 2.5 H Total Protein 6.0 L - Diagnostic Findings Chest x-ray: image reviewed Assessment and Plan Assessment: Shortness of breath, likely multifactorial, in part related to COPD exacerbation, atrial fibrillation with RVR, and mild fluid overload. History of atrial fibrillation. History of skin cancer. History of macular degeneration. History of CHF. History of moderately severe COPD, with an FEV1 percent of 56, secondary to previous tobacco use. History of GERD. Hyperlipidemia. History of hypertension. DJD. Status post pacemaker. Plan: Plan dated 01/21/2021. The patient's medications will be reviewed. We'll make sure she is on appropriate medications for COPD exacerbation. We will continue to follow the patient and make recommendations where appropriate. The patient be placed on short-term beta agonist, short-term muscarinic antagonist, long-acting beta ag onist, inhaled corticosteroids, and systemic corticosteroids. No antibiotic is necessary at this time. Additional recommendations are forthcoming. Time with Patient: Greater than 30
[2021-01-21] MEDS ORDERED: methylPREDNISolone SOD SUCCI 125 MG/2 ML VIAL IV SCH (16:00)
[2021-01-21 16:35] LABS: Glucose,Whole Blood 222 mg/dL (75-99)
[2021-01-21] MEDS: methylPREDNISolone SOD SUCCI 40 MG/ML 1 ML VIAL IV SCH ×2 (16:53→23:48)
[2021-01-21] MEDS: POTASSIUM CHLORIDE ER 10 MEQ TAB.ER.PRT PO SCH (16:53)
[2021-01-21] MEDS: INSULIN ASPART (NovoLOG) 100 UNIT/ML VIAL SQ SCH ×2 (16:53→21:15)
[2021-01-21] MEDS: DIGOXIN 125 MCG TAB PO SCH (16:53)
[2021-01-21] MEDS: metFORMIN 500 MG TAB PO SCH (16:53)
[2021-01-21] MEDS: FAMOTIDINE 20 MG TAB PO SCH (16:57)
[2021-01-21] MEDS ORDERED: FAMOTIDINE 20 MG TAB PO SCH (17:30)
[2021-01-21 20:20] LABS: Glucose,Whole Blood 190 mg/dL (75-99)
[2021-01-21] MEDS: BUDESONIDE 1 MG/2 ML NEBU INHALATION SCH (20:34)
[2021-01-21] MEDS: FORMOTEROL FUMARATE 20 MCG/2 ML NEBU INHALATION SCH (20:35)
[2021-01-21] MEDS: DILTIAZEM CD 180 MG CAP.ER.24H PO SCH (21:14)
[2021-01-21] MEDS: ATORVASTATIN 20 MG TAB PO SCH (21:14)
[2021-01-21] MEDS: MELATONIN 5 MG TABLET PO SCH (21:14)
[2021-01-22] MEDS: methylPREDNISolone SOD SUCCI 40 MG/ML 1 ML VIAL IV SCH ×4 (05:13→23:47)
[2021-01-22 06:44] LABS: Glucose,Whole Blood 191 mg/dL (75-99)
[2021-01-22] MEDS: BUDESONIDE 1 MG/2 ML NEBU INHALATION SCH ×2 (07:06→20:28)
[2021-01-22] MEDS: FORMOTEROL FUMARATE 20 MCG/2 ML NEBU INHALATION SCH ×2 (07:06→20:28)
[2021-01-22] MEDS: IPRATROPIUM-ALBUTEROL 3 ML NEB INHALATION SCH ×4 (07:06→20:28)
[2021-01-22] MEDS: ISOSORBIDE MONONITRATE ER 15 MG TAB PO SCH (07:40)
[2021-01-22] MEDS: FUROSEMIDE 20 MG TAB PO SCH ×2 (07:40→11:36)
[2021-01-22] MEDS: POTASSIUM CHLORIDE ER 10 MEQ TAB.ER.PRT PO SCH ×2 (07:40→17:27)
[2021-01-22] MEDS: METOPROLOL TARTRATE 25 MG TAB PO SCH ×2 (07:41→21:15)
[2021-01-22] MEDS: METOPROLOL TARTRATE 50 MG TAB PO SCH ×2 (07:41→21:15)
[2021-01-22] MEDS: FAMOTIDINE 20 MG TAB PO SCH (07:41)
[2021-01-22] MEDS: LOSARTAN 25 MG TAB PO SCH (07:41)
[2021-01-22] MEDS: INSULIN ASPART (NovoLOG) 100 UNIT/ML VIAL SQ SCH ×4 (07:41→21:15)
[2021-01-22] MEDS: PANTOPRAZOLE 40 MG TABLET PO SCH (07:41)
[2021-01-22] MEDS: APIXABAN 2.5 MG TABLET PO SCH ×2 (07:41→21:14)
[2021-01-22] MEDS: DAPAGLIFLOZIN PROPANEDIOL 5 MG PO SCH (07:42)
[2021-01-22] MEDS ORDERED: FUROSEMIDE 40 MG TAB PO SCH (08:00)
[2021-01-22] MEDS ORDERED: AZITHROMYCIN 500 MG TAB PO SCH (10:00)
[2021-01-22] MEDS: SODIUM CHLORIDE 0.9% 1,000 ML IV SCH (10:35)
[2021-01-22 10:56] LABS: Glucose,Whole Blood 201 mg/dL (75-99)
[2021-01-22] MEDS: MAGNESIUM OXIDE 400 MG TAB PO SCH (11:36)
[2021-01-22] MEDS: CYANOCOBALAMIN 500 MCG TAB PO SCH (11:36)
[2021-01-22] MEDS: CALCIUM CARBONATE 500 MG CHEWABLE PO SCH (11:36)
--- NOTE | 2021-01-22 13:35 | CONS ---
CONSULTATION CHIEF COMPLAINT: Atrial fibrillation. Zehra is an 89-year-old lady with history of COPD on home O2 and on long-term steroid. She was admitted to hospital with symptoms of shortness of breath. Cardiology has been consulted because of her history of atrial fibrillation, COPD and congestive heart failure, who presented to hospital with worsening shortness of breath of several days' duration. The patient is on home O2 and is also using nebulizers at home. She does not have leg edema, PND or orthopnea. Her steroid doses have been changed recently and she thinks her worsening shortness of breath is probably related to it. An EKG on this admission revealed atypical atrial flutter with nonspecific ST-T wave changes. This could easily be ( ) atrial fibrillation. She is adequately anticoagulated with Eliquis 2.5 b.i.d., and her heart rates are well controlled. I believe her shortness of breath is related to COPD exacerbation. There is elevation in her BNP at 2830. I do not believe this is related to acute onset heart failure. PAST MEDICAL HISTORY: Significant for COPD, atrial fibrillation, sick sinus syndrome status post permanent pacemaker. Diabetes and hypertension. CURRENT MEDICATIONS: Current medications include Eliquis 2.5 b.i.d., Lasix 20 b.i.d. Farxiga, Imdur, Cozaar, Pepcid, Lopressor, K-Dur, Lipitor, Cartia, Lasix, Digitek, Ventolin, Glucophage, and DuoNeb. ALLERGIES: The patient is allergic to SULFA. FAMILY HISTORY: Negative for premature coronary artery disease. SOCIAL HISTORY: Negative for current smoking, EtOH abuse, or drug abuse. She used to smoke cigarettes that she quit many years ago. REVIEW OF SYSTEMS: HEENT is unremarkable. CARDIAC: As described above. RESPIRATORY: As described above. GI: Negative. GENITOURINARY: Negative. ALLERGY/IMMUNOLOGY: Negative. SKIN: Negative. MUSCULOSKELETAL: Significant for arthritis. PSYCHOSOCIAL: Negative. ENDOCRINE/DERM: Negative. CONSTITUTIONAL: Negative. ONCOLOGICAL: Negative. RN NEW GRAD: Negative. Rest of the system review is not relevant. EXAM: Afebrile. Heart rate is around 110 beats per minute. Blood pressure is 120/72, respiratory rate 18. CHEST: Exam reveals occasional rhonchi and diminished air entry bilaterally. HEART: Exam reveals first and second heart sounds, irregular rhythm and an ejection systolic murmur in the aortic area. ABDOMEN: Soft. Exam of EXTREMITIES: Reveals mild edema. Peripheral pulses are felt. ASSESSMENT: 1. Atypical atrial flutter with controlled ventricular rate. 2. COPD exacerbation. 3. Sick sinus syndrome status post permanent pacemaker. 4. Hypertension. 5. Dyslipidemia. 6. Diabetes. PLAN: I will obtain a 2D echo to evaluate her LV function. If heart rate is elevated after her medications have all been given this morning, we might have to increase the dose of the Cardizem that she was on at home. Thank you for allowing us to participate in the care of this pleasant lady. We are going to follow the patient with you with interest. MMDIPTIL / IJN: [id number] /
--- NOTE | 2021-01-22 13:44 | P.PN ---
Subjective Progress Note Date: 01/22/21 Principal diagnosis: Shortness of breath. Pulmonary consult dated 01/21/2021. 89-year-old female, with a history of atrial fibrillation, heart failure, and COPD, who presents to the emergency department on January 21, complaining of shortness of breath. She states that her shortness of breath is been present for at least a couple weeks. She saw my partner for her COPD 3 weeks ago, and at that time she was doing well. She states that over the last couple days, things seem to have gotten worse. She was told in the emergency room that she had atrial fibrillation, and that was part of the problem. She does not have a cough to any great extent. She does not produce any phlegm. There is no fever or chills. She denies chest pain or chest discomfort. She does use a number breathing medications are home including albuterol sulfate, budesonide, and Perforomist. She states that those medications have not really been helping her that much. Current laboratory data includes a white count 12.1, hemoglobin 15.2, hematocrit 48.2, and platelet count 234,000. PT, INR, and PTT are normal. Sodium 139, potassium 4.3, chlorides 101, CO2 31, anion gap 7, BUN 19, and creatinine 0.96. Troponin was less than 0.012 and N-terminal proBNP was 2830. Chest x-ray was interpreted by the radiologist as showing no acute cardiopulmonary disease. In my opinion, there is a small component of fluid overload. Progress note dated 01/22/2021. This is a very pleasant 89-year-old female who was admitted to the hospital with a diagnosis of shortness of breath, likely related to underlying COPD exacerbation, mild CHF, and atrial fibrillation with rapid ventricular response. The patient is feeling better today compared to yesterday. The patient has no new labs to report today. Labs from January 21 are evaluated. Chest x-ray showed only chronic changes, nothing acute. She was told by her primary care physician that she might go home tomorrow. Objective - Vital Signs Vital signs: Vital Signs Temp 98.2 F 01/22/21 13:12 Pulse 83 01/22/21 13:12 Resp 33 H 01/22/21 13:12 BP 100/59 01/22/21 13:12 Pulse Ox 96 01/22/21 13:12 Intake & Output 01/21/21 01/22/21 01/22/21 18:59 06:59 18:59 Weight 81.647 kg Other: # Voids 1 2 # Bowel Movements 1 1 - Exam Oriented 3, mild conversational dyspnea, without use of accessory muscles or audible wheezing. 3 L saturation is 96%. HEENT examination is grossly unremarkable. Neck supple. Full range of motion. No adenopathy thyromegaly or neck vein distention. Cardiovascular examination reveals irregular rhythm and rate. S1-S2 normal. No S3 or S4. No discernible murmur noted. Heart rate 105 bpm. Heart sounds distant. Lungs reveal very diminished breath sounds. Mild scattered crackles are noted. Scattered rhonchi are also appreciated. There are no wheezes. Breath sounds are equal bilaterally. Abdomen soft bowel sounds are heard. No masses or tenderness. Extremities are intact. No cyanosis clubbing or edema. Skin is without rash or lesion. Neurologic examination is brief but nonfocal. - Labs CBC & Chem 7: 01/21/21 08:22 01/21/21 08:22 Labs: Abnormal Lab Results - Last 24 Hours (Table) 01/21/21 01/21/21 01/22/21 Range/Units 16:33 20:19 06:42 POC Glucose (mg/dL) 222 H 190 H 191 H (75-99) mg/dL 01/22/21 Range/Units 10:55 POC Glucose (mg/dL) 201 H (75-99) mg/dL Assessment and Plan Assessment: Shortness of breath, likely multifactorial, in part related to COPD exacer bation, atrial fibrillation with RVR, and mild fluid overload. History of atrial fibrillation. History of skin cancer. History of macular degeneration. History of CHF. History of moderately severe COPD, with an FEV1 percent of 56, secondary to previous tobacco use. History of GERD. Hyperlipidemia. History of hypertension. DJD. Status post pacemaker. Plan: Plan dated 01/21/2021. The patient's medications will be reviewed. We'll make sure she is on appropriate medications for COPD exacerbation. We will continue to follow the patient and make recommendations where appropriate. The patient be placed on short-term beta agonist, short-term muscarinic antagonist, long-acting beta agonist, inhaled corticosteroids, and systemic corticosteroids. No antibiotic is necessary at this time. Additional recommendations are forthcoming. Plan dated 01/22/2021. Currently, the patient's doing well. The patient does not need antibiotics in my opinion. Her antibiotics are discontinued. She'll need to follow-up with her lung doctor after discharge. The patient apparently was told by her primary doctor that she would be discharged tomorrow. She's feeling much better today. Much less short of breath. Additional recommendations and suggestions are forthcoming. We will continue to follow and make recommendations where appropriate. Time with Patient: Less than 30
--- NOTE | 2021-01-22 13:45 | P.HPIM ---
History of Present Illness H&P Date: 01/21/21 HISTORY OF PRESENT ILLNESS This is an 89-year old- female patient of Dr. Gutiérrez with a previous medical history significant for hypertension and hypertensive cardiovascular disease, hyperlipidemia, Paroxysmal atrial fibrillation, 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 and steroid dependent has been doing fine with her O2 and Nebulized treatment at home till recently where she found to be more short of breath with increased coughing despite using her Updraft treatment. She gives history that Dr. St recently decreased her steroids from 10 mg to 5 mg daily. She also complains of pain in her jaw and teeth a couple days ago and took baby aspirins. Patient presented to [facility] emergency center for evaluation. She was found to be afebrile, heart rate 87, respiratory rate 26, blood pressure 152/66, pulse ox 92%. EKG was atrial flutter. WBC 12.1, hemoglobin 15.2, platelet count 234. Sodium 139, potassium 4.3, chloride 101, CO2 31, BUN 19 creatinine 0.96. Blood sugar 151. Magnesium 2.5. Liver function tests were normal. Troponin negative. ProBNP 2830. Lactic acid 2. Chest x-ray reveals no acute cardiopulmonary process. Chronic changes. [facility], consult with pulmonary medicine. REVIEW OF SYSTEMS Constitutional: No fever, no chills, no night sweats. No weight change. Reports weakness, Reports fatigue no lethargy. No daytime sleepiness. EENT: No headache. No blurred vision or double vision, no loss of vision. No loss of Hearing, no ringing in the ears, no dizziness. No nasal drainage or congestion. No epistaxis. No sore throat. Lungs: Reports shortness of breath, Reports cough, no sputum production. Reports wheezing. Cardiovascular: No chest pain, no lower extremity edema. No palpitations. No paroxysmal nocturnal dyspnea. No orthopnea. No lightheadedness or dizziness. No syncopal episodes. Abdominal: No abdominal pain. No nausea, vomiting. No diarrhea. No constipation. No bloody or tarry stools.. No loss of appetite. Genitourinary: No dysuria, increased frequency, urgency. No urinary retention. Musculoskeletal: No myalgias. No muscle weakness, no gait dysfunction, no frequent falls. No back pain. No neck pain. Integumentary: No wounds, no lesions. No rash or pruritus. No unusual bruising. No change in hair or nails. Neurologic: No aphasia. No facial droop. No change in mentation. No head injury. No headache. No paralysis. No paresthesia. Psychiatric: No depression. No anxiety. No mood swings. Endocrine: No abnormal blood sugars. MEDICAL HISTORY Hypertension, hypertensive cardio vascular disease Hyperlipidemia Paroxysmal atrial fibrillation Moderate to severe COPD O2 dependence with chronic hypoxic respiratory failure Macular degeneration Gastroesophageal reflux disease Generalized osteoarthritis SURGICAL HISTORY Pacemaker implantation in 2018 Tonsillectomy Hernia repair Removal of skin cancer Bilateral cataract removal and intraocular lens implants SOCIAL HISTORY Patient states that she was a smoker less than a pack a day for 20-30 years and quit 10 years ago. She denies any illicit drug use or alcohol use. She rob webb lives at home alone. FAMILY HISTORY Father at age 91 with history of heart disease. Mother at age 87 from pancreatic cancer. Patient has 1 brother that at age 93 from liver cancer. Patient has 2 sisters with no major medical problems. Patient has a total of 4 children, 3 daughters and 1 son. One daughter at a young age and a motor vehicle accident. PHYSICAL EXAMINATION Gen: This is an 89-year-old female. She is sitting on edge of bed and appears to be comfortable at rest. No acute respiratory distress is noted. HEENT: Head is atraumatic, normocephalic. Pupils equal, round. Sclerae is anicteric. NECK: Supple. No JVD. No lymphadenopathy. No thyromegaly. Chest: decrease breath sounds at the bases with few ronchi , minimal expiratory wheezes no chest wall tenderness or intercostal retractions. Heart: first heart sound is depressed second heart sound is normal there FLORY 2/6 located at the left sternal border. ABDOMEN: Soft. Bowel sounds are present. No masses. No tenderness. EXTREMITIES: Trace pedal edema. No calf tenderness. Dorsalis pedis +1 bilaterally. NEUROLOGICAL: Patient is awake, alert and oriented x3. Cranial nerves 2 through 12 are grossly intact. ASSESSMENT AND PLAN 1. COPD the exacerbation. Consult with pulmonary medicine, Continue Solu- Medrol 60 mg 3 times daily, DuoNeb treatments 4 times daily and as needed, Pulmicort 1 mg twice daily. 2. Atrial fibrillation, paroxysmal. Patient currently in A. fib. Cardiology consult. Continue Digoxin 125 mcg orally daily, Cardizem CD 180 mg orally daily, Metoprolol 75 mg orally bid and Eliquis 2.5 mg orally bid. 3. Jaw and teeth pain. Rule out unstable angina. Consult cardiology. 4. Hypertension and hypertensive cardiovascular disease. Continue Losartn 25 mg orally daily, Metoprolol 75 mg orally bid. 5. Hyperlipidemia. Continue Lipitor 20 mg orally daily. 6. Chronic diastolic heart failure. we will continue with Lasix 20 mg orally bid, LOsartan 25 mg orally daily and Metoprolol 75 mg orally bid. 7. 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 we will continue with above treatment. 8. GERD. we will continue with Pecid 20 mg orally daily. 9. CAD. Continue with Metoprolol 75 mg orally bid, Lipitor 20 mg orally daily and IMdur 15 mg orally daily. 10. DVT prophylaxis. Continue eliquis. Patient will be admitted to the hospital for a minimum of 2 night stay. DISCHARGE PLAN Home with home care most likely. Impression and plan of care have been directed as dictated by the signing physician. Noelle Gilbert nurse practitioner acting as scribe for signing physician. Past Medical History Past Medical History: Atrial Fibrillation, Cancer, Heart Failure, COPD, GERD/Reflux, Hyperlipidemia, Hypertension, Osteoarthritis (OA) Additional Past Medical History / Comment(s): skin cancer on scalp, macular degeneration History of Any Multi-Drug Resistant Organisms: None Reported Past Surgical History: Hernia Repair, Pacemaker, Tonsillectomy Additional Past Surgical History / Comment(s): skin cancer removed from scalp, andrew cataracts Past Anesthesia/Blood Transfusion Reactions: No Reported Reaction Type of Cardiac Device: Permanent Pacemaker Device Placement Date:: 2017 Past Psychological History: No Psychological Hx Reported Smoking Status: Former smoker Past Alcohol Use History: Occasional Past Drug Use History: None Reported - Past Family History Father Family Medical History: Coronary Artery Disease (CAD) Additional Family Medical History / Comment(s): Father at age 91 with history of heart disease. Mother Family Medical History: Cancer Additional Family Medical History / Comment(s): Mother at age 87 from pancreatic cancer. Brother(s) Additional Family Medical History / Comment(s): Patient has 1 brother that at age 93 from liver cancer. Sister(s) Additional Family Medical History / Comment(s): Patient has 2 sisters with no major medical problems. Daughter(s) Additional Family Medical History / Comment(s): Patient has a total of 4 children, 3 daughters and 1 son. One daughter at a young age and a motor vehicle accident. Medications and Allergies Home Medications Medication Instructions Recorded Confirmed Type Apixaban [Eliquis] 2.5 mg PO BID tablet 08/11/17 01/21/21 Rx Famotidine [Pepcid] 20 mg PO AC-BID 10/23/17 01/21/21 History Potassium Chloride [Klor-Con 10] 10 meq PO BID-W/MEALS 10/23/17 01/21/21 History Budesonide [Pulmicort] 1 mg INHALATION RT-BID nebu 07/19/18 01/21/21 Rx Albuterol Inhaler [Ventolin Hfa 1 - 2 puff INHALATION RT-Q6H PRN 06/16/20 01/21/21 History Inhaler] Atorvastatin [Lipitor] 20 mg PO HS 06/16/20 01/21/21 History Digoxin [Digitek] 125 mcg PO W/SUPPER 06/16/20 01/21/21 History Furosemide [Lasix] 20 mg PO BID@0800,1200 06/16/20 01/21/21 History Isosorbide Mononitrate ER [Imdur] 15 mg PO DAILY 06/16/20 01/21/21 History Metoprolol Tartrate [Lopressor] 25 mg PO BID 06/16/20 01/21/21 History Metoprolol Tartrate [Lopressor] 50 mg PO BID 06/16/20 01/21/21 History Omeprazole 20 mg PO DAILY 06/16/20 01/21/21 History Risedronate Sodium [Risedronate 35 mg PO MO 06/16/20 01/21/[address]] predniSONE 5 mg PO DAILY 06/16/20 01/21/21 History Calcium Carbonate [Calcium] 600 mg PO W/LUNCH 01/21/21 01/21/21 History Cyanocobalamin (Vitamin B-12) 1,000 mcg PO W/LUNCH 01/21/21 01/21/21 History [Vitamin B-12] Dapagliflozin Propanediol [Farxiga] 5 mg PO DAILY 01/21/21 01/21/21 History Diltiazem HCl [Cartia Xt] 180 mg PO HS 01/21/21 01/21/21 History Furosemide [Lasix] 20 mg PO BID@0800,1200 01/21/21 01/21/21 History Ipratropium-Albuterol Nebulize 3 ml INHALATION RT-Q6H 01/21/21 01/21/21 History [Duoneb 0.5 mg-3 mg/3 ml Soln] Losartan [Cozaar] 25 mg PO DAILY 01/21/21 01/21/21 History Magnesium Oxide [Mag-Ox] 400 mg PO W/LUNCH 01/21/21 01/21/21 History Melatonin 5 mg PO HS 01/21/21 01/21/21 History metFORMIN HCL [Glucophage] 1,000 mg PO W/SUPPER 01/21/21 01/21/21 History Allergies Allergy/AdvReac Type Severity Reaction Status Date / Time Sulfa (Sulfonamide Allergy Unknown Verified 01/21/21 09:09 Antibiotics) Childhood shellfish derived [Shellfish] AdvReac Nausea & Verified 01/21/21 09:09 Vomiting & Diarrhea Physical Exam Vitals: Vital Signs Temp Pulse Pulse Resp BP BP Pulse Ox 01/21/21 11:41 107 H 01/21/21 11:32 110 H 01/21/21 10:59 97.8 F 125 H 32 H 117/76 97 01/21/21 10:37 97.7 F 96 22 141/57 96 01/21/21 10:36 96 22 141/57 96 01/21/21 10:04 100 22 132/83 94 L 01/21/21 09:34 82 24 115/85 94 L 01/21/21 09:02 90 01/21/21 08:36 28 H 01/21/21 08:35 92 01/21/21 08:17 105 H 28 H 143/89 97 01/21/21 08:00 97.7 F 87 26 H 152/66 92 L Intake and Output 01/20/21 01/21/21 01/21/21 22:59 06:59 14:59 Other: Weight 81.647 kg Results CBC & Chem 7: 01/21/21 08:22 01/21/21 08:22 Labs: Abnormal Lab Results - Last 24 Hours (Table) 01/21/21 01/21/21 Range/Units 08:22 08:22 WBC 12.1 H (3.8-10.6) k/uL Hct 48.2 H (34.0-46.0) % Neutrophils # 8.6 H (1.3-7.7) k/uL Carbon Dioxide 31 H (22-30) mmol/L BUN 19 H (7-17) mg/dL Glucose 151 H (74-99) mg/dL Magnesium 2.5 H (1.6-2.3) mg/dL Total Protein 6.0 L (6.3-8.2) g/dL
--- NOTE | 2021-01-22 13:48 | P.PN ---
Subjective Progress Note Date: 01/22/21 HISTORY OF PRESENT ILLNESS This is an 89-year old- female patient of Dr. Gutiérrez with a previous medical history significant for hypertension and hypertensive cardiovascular disease, hyperlipidemia, Paroxysmal atrial fibrillation, 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 and steroid dependent has been doing fine with her O2 and Nebulized treatment at home till recently where she found to be more short of breath with increased coughing despite using her Updraft treatment. She gives history that Dr. St recently decreased her steroids from 10 mg to 5 mg daily. She also complains of pain in her jaw and teeth a couple days ago and took baby aspirins. Patient presented to [facility] emergency center for evaluation. She was found to be afebrile, heart rate 87, respiratory rate 26, blood pressure 152/66, pulse ox 92%. EKG was atrial flutter. WBC 12.1, hemoglobin 15.2, platelet count 234. Sodium 139, potassium 4.3, chloride 101, CO2 31, BUN 19 creatinine 0.96. Blood sugar 151. Magnesium 2.5. Liver function tests were normal. Troponin negative. ProBNP 2830. Lactic acid 2. Chest x-ray reveals no acute cardiopulmonary process. Chronic changes. Patient admitted to the [facility] floor, consult with pulmonary medicine. 01/22: Patient has been afebrile, heart rate between 67 and 1:15, respiratory rate 33, blood pressure 100/59, pulse ox 96% on 3 L nasal cannula. Blood sugars are running between 190 and 222.patient has been seen and followed by pulmonary medicine with recommendations to decrease Solu-Medrol, Perforomist added, dani nue Pulmicort, DuoNeb treatments. No antibiotics are needed. Patient has been seen by cardiology and echocardiogram has been ordered. Anticipate possible discharge in the next 24-48 hours. REVIEW OF SYSTEMS Constitutional: No fever, no chills, no night sweats. No weight change. Reports weakness, Reports fatigue no lethargy. No daytime sleepiness. EENT: No headache. No blurred vision or double vision, no loss of vision. No loss of Hearing, no ringing in the ears, no dizziness. No nasal drainage or congestion. No epistaxis. No sore throat. Lungs: Reports shortness of breath-improving, Reports cough, no sputum production. Reports wheezing. Cardiovascular: No chest pain, no lower extremity edema. No palpitations. No paroxysmal nocturnal dyspnea. No orthopnea. No lightheadedness or dizziness. No syncopal episodes. Abdominal: No abdominal pain. No nausea, vomiting. No diarrhea. No constipation. No bloody or tarry stools.. No loss of appetite. Genitourinary: No dysuria, increased frequency, urgency. No urinary retention. Musculoskeletal: No myalgias. No muscle weakness, no gait dysfunction, no frequent falls. No back pain. No neck pain. Integumentary: No wounds, no lesions. No rash or pruritus. No unusual bruising. No change in hair or nails. Neurologic: No aphasia. No facial droop. No change in mentation. No head injury. No headache. No paralysis. No paresthesia. Psychiatric: No depression. No anxiety. No mood swings. Endocrine: No abnormal blood sugars. PHYSICAL EXAMINATION Gen: This is an 89-year-old female. She is sitting on edge of bed and appears to be comfortable at rest. No acute respiratory distress is noted. HEENT: Head is atraumatic, normocephalic. Pupils equal, round. Sclerae is anicteric. NECK: Supple. No JVD. No lymphadenopathy. No thyromegaly. Chest: decrease breath sounds at the bases with few ronchi , minimal expiratory wheezes no chest wall tenderness or intercostal retractions. Heart: first heart sound is depressed second heart sound is normal there FLORY 2/6 located at the left sternal border. ABDOMEN: Soft. Bowel sounds are present. No masses. No tenderness. EXTREMITIES: Trace pedal edema. No calf tenderness. Dorsalis pedis +1 bilaterally. NEUROLOGICAL: Patient is awake, alert and oriented x3. Cranial nerves 2 through 12 are grossly intact. ASSESSMENT AND PLAN 1. COPD the exacerbation. Consult with pulmonary medicine appreciated, Continue Solu-Medrol decreased to 40 mg 3 times daily, DuoNeb treatments 4 times daily and as needed, Pulmicort 1 mg twice daily, Perforomist twice daily. 2. Atrial fibrillation, paroxysmal. Patient currently in A. fib. Cardiology consult appreciated. Continue Digoxin 125 mcg orally daily, Cardizem CD 180 mg orally daily, Metoprolol 75 mg orally bid and Eliquis 2.5 mg orally bid. Echocardiogram ordered. 3. Jaw and teeth pain. Rule out unstable angina. Consult cardiology. 4. Hypertension and hypertensive cardiovascular disease. Continue Losartn 25 mg orally daily, Metoprolol 75 mg orally bid. 5. Hyperlipidemia. Continue Lipitor 20 mg orally daily. 6. Chronic diastolic heart failure. we will continue with Lasix 20 mg orally bid, LOsartan 25 mg orally daily and Metoprolol 75 mg orally bid. 7. 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 we will continue with above treatment. 8. GERD. we will continue with Pecid 20 mg orally daily. 9. CAD. Continue with Metoprolol 75 mg orally bid, Lipitor 20 mg orally daily and IMdur 15 mg orally daily. 10. DVT prophylaxis. Continue eliquis. DISCHARGE PLAN Home with home care most likely. Impression and plan of care have been directed as dictated by the signing physician. Noelle Gilbert nurse practitioner acting as scribe for signing physician. Objective - Vital Signs Vital signs: Vital Signs Temp 98.2 F 01/22/21 13:12 Pulse 83 01/22/21 13:12 Resp 33 H 01/22/21 13:12 BP 100/59 01/22/21 13:12 Pulse Ox 96 01/22/21 13:12 Intake & Output 01/21/21 01/22/21 01/22/21 18:59 06:59 18:59 Weight 81.647 kg Other: # Voids 1 2 # Bowel Movements 1 1 - Labs CBC & Chem 7: 01/21/21 08:22 01/21/21 08:22 Labs: Abnormal Lab Results - Last 24 Hours (Table) 01/21/21 01/21/21 01/22/21 Range/Units 16:33 20:19 06:42 POC Glucose (mg/dL) 222 H 190 H 191 H (75-99) mg/dL 01/22/21 Range/Units 10:55 POC Glucose (mg/dL) 201 H (75-99) mg/dL
[2021-01-22 16:41] LABS: Glucose,Whole Blood 256 mg/dL (75-99)
[2021-01-22] MEDS: metFORMIN 500 MG TAB PO SCH (17:27)
[2021-01-22] MEDS: DIGOXIN 125 MCG TAB PO SCH (17:27)
--- NOTE | 2021-01-22 18:00 | ECHOF ---
Referral Reason:echo MEASUREMENTS -------- HEIGHT: 165.1 cm WEIGHT: 81.6 kg BP: RVIDd: 2.8 cm (< 3.3) IVSd: 1.7 cm (0.6 - 1.1) LVIDd: 3.1 cm (3.9 - 5.3) LVPWd: 1.7 cm (0.6 - 1.1) IVSs: 1.6 cm LVIDs: 1.9 cm LVPWs: 1.9 cm LAESV Index (A-L): 39.03 ml/m Ao Diam: 2.8 cm (2.0 - 3.7) AV Cusp: 0.9 cm (1.5 - 2.6) MV EXCURSION: 9.225 mm (> 18.000) MV EF SLOPE: 56 mm/s (70 - 150) EPSS: 0.5 cm AV maxP.36 mmHg AV meanP.29 mmHg AR PHT: 479 ms RAP: 5.00 mmHg RVSP: 42.55 mmHg FINDINGS -------- Atrial fibrillation. This was a technically adequate study. The left ventricular size is normal. There is moderate concentric left ventricular hypertrophy. O verall left ventricular systolic function is normal with, an EF between 55 - 60 %. The right ventricle is normal in size. LA is moderately dilated 34-39 ml/m2 The right atrium is mildly enlarged. Electronic pacemaker lead seen in the right atrial cavity. Interatrial and interventricular septum intact. There is moderate aortic valve sclerosis. There is [id number]-dnjyincq aortic regurgitation. There i s mild aortic stenosis present. Peak/mean gradient across the Aortic Valve is 23.36mmHg / 16.29mmHg . Mild mitral annular calcification present. Wbaj-yg-kqjeorfi mitral regurgitation is present. Ijhe-id-umztoenu tricuspid regurgitation present. There is mild to moderate pulmonary hypertension. The right ventricular systolic pressure, as measured by Doppler, is 42.55mmHg. There is no pulmonic regurgitation present. The aortic root size is normal. IVC Not well visulized. There is no pericardial effusion. CONCLUSIONS -------- 1. The left ventricular size is normal. 2. There is moderate concentric left ventricular hypertrophy. 3. Overall left ventricular systolic function is normal with, an EF between 55 - 60 %. 4. LA is moderately dilated 34-39 ml/m2 5. The right atrium is mildly enlarged. 6. There is moderate aortic valve sclerosis. 7. There is gjtk-tx-swjcabus aortic regurgitation. 8. There is mild aortic stenosis present. 9. Peak/mean gradient across the Aortic Valve is 23.36mmHg / 16.29mmHg. 10. Mild mitral annular calcification present. 11. Paku-bc-mldzuswd mitral regurgitation is present. 12. Qqqa-pv-rdyfmybi tricuspid regurgitation present. 13. There is mild to moderate pulmonary hypertension. 14. The right ventricular systolic pressure, as measured by Doppler, is 42.55mmHg. PAD CUTTER: Mary Chavira RDCS
[2021-01-22 20:10] LABS: Glucose,Whole Blood 276 mg/dL (75-99)
[2021-01-22] MEDS: ATORVASTATIN 20 MG TAB PO SCH (21:14)
[2021-01-22] MEDS: MELATONIN 5 MG TABLET PO SCH (21:15)
[2021-01-22] MEDS: DILTIAZEM CD 180 MG CAP.ER.24H PO SCH (21:44)
[2021-01-23] MEDS: methylPREDNISolone SOD SUCCI 40 MG/ML 1 ML VIAL IV SCH (05:11)
[2021-01-23 07:16] LABS: Glucose,Whole Blood 216 mg/dL (75-99)
[2021-01-23] MEDS: DAPAGLIFLOZIN PROPANEDIOL 5 MG PO SCH (07:33)
[2021-01-23] MEDS: LOSARTAN 25 MG TAB PO SCH (07:45)
[2021-01-23] MEDS: PANTOPRAZOLE 40 MG TABLET PO SCH (07:45)
[2021-01-23] MEDS: METOPROLOL TARTRATE 25 MG TAB PO SCH (07:46)
[2021-01-23] MEDS: METOPROLOL TARTRATE 50 MG TAB PO SCH ×2 (07:46→21:19)
[2021-01-23] MEDS: FAMOTIDINE 20 MG TAB PO SCH (07:46)
[2021-01-23] MEDS: POTASSIUM CHLORIDE ER 10 MEQ TAB.ER.PRT PO SCH ×2 (07:46→17:30)
[2021-01-23] MEDS: APIXABAN 2.5 MG TABLET PO SCH ×2 (07:46→21:19)
[2021-01-23] MEDS: ISOSORBIDE MONONITRATE ER 15 MG TAB PO SCH (07:46)
[2021-01-23] MEDS: FUROSEMIDE 20 MG TAB PO SCH ×2 (07:46→12:41)
[2021-01-23] MEDS: INSULIN ASPART (NovoLOG) 100 UNIT/ML VIAL SQ SCH ×4 (07:47→21:20)
[2021-01-23] MEDS: IPRATROPIUM-ALBUTEROL 3 ML NEB INHALATION SCH ×4 (07:49→21:03)
[2021-01-23] MEDS: FORMOTEROL FUMARATE 20 MCG/2 ML NEBU INHALATION SCH (07:49)
[2021-01-23] MEDS: BUDESONIDE 1 MG/2 ML NEBU INHALATION SCH (07:49)
[2021-01-23] MEDS ORDERED: methylPREDNISolone SOD SUCCI 40 MG/ML 1 ML VIAL IV SCH (09:00)
[2021-01-23] MEDS ORDERED: METOPROLOL TARTRATE 25 MG TAB PO STA (09:17)
--- NOTE | 2021-01-23 11:55 | P.PN ---
Subjective This is a 89-year-old female with history COPD, chronic atrial fibrillation, sick sinus syndrome status post permanent pacemaker status post pacemaker implantation, hypertension, dyslipidemia, valvular heart disease. She follows in the office with Dr. Pina. We are following the patient in atrial fibrillation with rapid ventricular response. Patient admitted to the hospital due to increased shortness of breath Patient seen and examined at bedside, no acute distress. Blood pressure 133/73, patient continues to be tachycardic heart rate 100-120s, afebrile, maintaining oxygen saturations on 2 L nasal cannula. She is currently maintained on Cardizem 180 mg nightly, digoxin 125 mcg nightly, metoprolol titrate 75 mg twice a day, Eliquis 2.5 mg twice a day, atorvastatin 20 mg nightly, losartan 25 mg daily, Imdur 50 mg daily. Echocardiogram revealed ejection fraction 55-60%, LA is moderately dilated, mild to moderate aortic regurgitation, mild aortic stenosis with a peak/mean gradient 23 mmHg/16 mmHg mild to moderate mitral regurgitation, mild to moderate tricuspid regurgitation, mild to moderate pulmonary hypertension with an RVSP of 42mmHg GENERAL: in no acute distress NECK: Supple without JVD or thyromegaly. LUNGS: Breath sounds Bilateral diminished and rhonci, Respiration equal and unlabored. HEART: Irregular tachycardic rate, systolic ejection murmur right sternal border EXTREMITIES: Normal range of motion. mild bilateral edema No clubbing or cyanosis. Peripheral pulses intact. ASSESSMENT COPD exacerbation Chronic persistent atrial fibrillation with rapid ventricular response on Eliquis Sick sinus syndrome status post pacemaker implantation Hypertension Dyslipidemia Valvular heart disease PLAN Increase Cardizem to 240 mg nightly Increase metoprolol titrate to 100 mg twice a day Continue home cardiac medications Digoxin, Lasix,statin and Losartan Continue anticoagulation with Eliquis 2.5 mg twice a day Continue cardiac telemetry Further recommendations based on clinical course Nurse Practitioner note has been reviewed, I agree with a documented findings and plan of care. Patient was seen and examined. Objective - Vital Signs Vital signs: Vital Signs Temp 98.4 F 01/23/21 07:46 Pulse 126 H 01/23/21 08:19 Resp 18 01/23/21 07:46 BP 133/73 01/23/21 07:46 Pulse Ox 95 01/23/21 07:52 Intake & Output 01/22/21 01/23/21 01/23/21 18:59 06:59 18:59 Other: # Voids 3 2 # Bowel Movements 1 - Labs CBC & Chem 7: 01/21/21 08:22 01/21/21 08:22 Labs: Abnormal Lab Results - Last 24 Hours (Table) 01/22/21 01/22/21 01/23/21 Range/Units 16:41 20:08 07:14 POC Glucose (mg/dL) 256 H 276 H 216 H (75-99) mg/dL
[2021-01-23 12:03] LABS: Glucose,Whole Blood 219 mg/dL (75-99)
[2021-01-23] MEDS: MAGNESIUM OXIDE 400 MG TAB PO SCH (12:41)
[2021-01-23] MEDS: CYANOCOBALAMIN 500 MCG TAB PO SCH (12:42)
[2021-01-23] MEDS: CALCIUM CARBONATE 500 MG CHEWABLE PO SCH (12:42)
--- NOTE | 2021-01-23 14:08 | P.PN ---
Subjective Progress Note Date: 01/23/21 Principal diagnosis: Shortness of breath. Pulmonary consult dated 01/21/2021. 89-year-old female, with a history of atrial fibrillation, heart failure, and COPD, who presents to the emergency department on January 21, complaining of shortness of breath. She states that her shortness of breath is been present for at least a couple weeks. She saw my partner for her COPD 3 weeks ago, and at that time she was doing well. She states that over the last couple days, things seem to have gotten worse. She was told in the emergency room that she had atrial fibrillation, and that was part of the problem. She does not have a cough to any great extent. She does not produce any phlegm. There is no fever or chills. She denies chest pain or chest discomfort. She does use a number breathing medications are home including albuterol sulfate, budesonide, and Perforomist. She states that those medications have not really been helping her that much. Current laboratory data includes a white count 12.1, hemoglobin 15.2, hematocrit 48.2, and platelet count 234,000. PT, INR, and PTT are normal. Sodium 139, potassium 4.3, chlorides 101, CO2 31, anion gap 7, BUN 19, and creatinine 0.96. Troponin was less than 0.012 and N-terminal proBNP was 2830. Chest x-ray was interpreted by the radiologist as showing no acute cardiopulmonary disease. In my opinion, there is a small component of fluid overload. Progress note dated 01/22/2021. This is a very pleasant 89-year-old female who was admitted to the hospital with a diagnosis of shortness of breath, likely related to underlying COPD exacerbation, mild CHF, and atrial fibrillation with rapid ventricular response. The patient is feeling better today compared to yesterday. The patient has no new labs to report today. Labs from January 21 are evaluated. Chest x-ray showed only chronic changes, nothing acute. She was told by her primary care physician that she might go home tomorrow. Progress note dated 01/23/2021. This is a very pleasant 89-year-old female was admitted to the hospital with a diagnosis of shortness of breath, multifactorial, in part related to underlying COPD exacerbation, mild CHF, and atrial fibrillation with rapid ventricular response. It appears that her atrial fibrillation is giving her the most trouble. Clinically, from the pulmonary standpoint, she is doing well. Her breathing is much improved. She was going to go home today but apparently the doctors are keeping her because of the atrial fibrillation. No new labs today. No recent chest x-ray to report. Objective - Vital Signs Vital signs: Vital Signs Temp 98.4 F 01/23/21 07:46 Pulse 98 01/23/21 12:09 Resp 18 01/23/21 07:46 BP 133/73 01/23/21 07:46 Pulse Ox 95 01/23/21 07:52 Intake & Output 01/22/21 01/23/21 01/23/21 18:59 06:59 18:59 Other: # Voids 3 2 # Bowel Movements 1 - Exam Oriented 3, mild conversational dyspnea, without use of accessory muscles or audible wheezing. 2 L saturation is 96%. HEENT examination is grossly unremarkable. Neck supple. Full range of motion. No adenopathy thyromegaly or neck vein distention. Cardiovascular examination reveals irregular rhythm and rate. S1-S2 normal. No S3 or S4. No discernible murmur noted. Heart rate 95 bpm. Heart sounds distant. Lungs reveal very diminished breath sounds. Mild scattered crackles are noted. Scattered rhonchi are also appreciated. There are no wheezes. Breath sounds are equal bilaterally. Abdomen soft bowel sounds are heard. No masses or tenderness. Extremities are intact. No cyanosis clubbing or edema. Skin is without rash or lesion. Neurologic examination is brief but nonfocal. - Labs CBC & Chem 7: 01/21/21 08:22 01/21/21 08:22 Labs: Abnormal Lab Results - Last 24 Hours (Table) 01/22/21 01/22/21 01/23/21 Range/Units 16:41 20:08 07:14 POC Glucose (mg/dL) 256 H 276 H 216 H (75-99) mg/dL 01/23/21 Range/Units 11:49 POC Glucose (mg/dL) 219 H (75-99) mg/dL Assessment and Plan Assessment: Shortness of breath, likely multifactorial, in part related to COPD exacerbation, atrial fibrillation with RVR, and mild fluid overload. History of atrial fibrillation. History of skin cancer. History of macular degeneration. History of CHF. History of moderately severe COPD, with an FEV1 percent of 56, secondary to previous tobacco use. History of GERD. Hyperlipidemia. History of hypertension. DJD. Status post pacemaker. Plan: Plan dated 01/21/2021. The patient's medications will be reviewed. We'll make sure she is on appropriate medications for COPD exacerbation. We will continue to follow the patient and make recommendations where appropriate. The patient be placed on short-term beta agonist, short-term muscarinic antagonist, long-acting beta a gonist, inhaled corticosteroids, and systemic corticosteroids. No antibiotic is necessary at this time. Additional recommendations are forthcoming. Plan dated 01/22/2021. Currently, the patient's doing well. The patient does not need antibiotics in my opinion. Her antibiotics are discontinued. She'll need to follow-up with her lung doctor after discharge. The patient apparently was told by her primary doctor that she would be discharged tomorrow. She's feeling much better today. Much less short of breath. Additional recommendations and suggestions are forthcoming. We will continue to follow and make recommendations where appropriate. Plan dated 01/23/2021. Currently, the patient is doing well from the pulmonary standpoint. The patient could be discharged home based on the pulmonary situation. Unfortunately, she's having issues with her atrial fibrillation and rapid ventricular response. Therefore, I believe she staying another day at least. We will continue to follow and continue make recommendations were appropriate. Prognosis is guarded. Medications are reviewed. Time with Patient: Less than 30
--- NOTE | 2021-01-23 15:49 | P.PN ---
Subjective Progress Note Date: 01/23/21 HISTORY OF PRESENT ILLNESS This is an 89-year old- female patient of Dr. Gutiérrez with a previous medical history significant for hypertension and hypertensive cardiovascular disease, hyperlipidemia, Paroxysmal atrial fibrillation, 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 and steroid dependent has been doing fine with her O2 and Nebulized treatment at home till recently where she found to be more short of breath with increased coughing despite using her Updraft treatment. She gives history that Dr. St recently decreased her steroids from 10 mg to 5 mg daily. She also complains of pain in her jaw and teeth a couple days ago and took baby aspirins. Patient presented to [facility] emergency center for evaluation. She was found to be afebrile, heart rate 87, respiratory rate 26, blood pressure 152/66, pulse ox 92%. EKG was atrial flutter. WBC 12.1, hemoglobin 15.2, platelet count 234. Sodium 139, potassium 4.3, chloride 101, CO2 31, BUN 19 creatinine 0.96. Blood sugar 151. Magnesium 2.5. Liver function tests were normal. Troponin negative. ProBNP 2830. Lactic acid 2. Chest x-ray reveals no acute cardiopulmonary process. Chronic changes. Patient admitted to the [facility] floor, consult with pulmonary medicine. 01/22: Patient has been afebrile, heart rate between 67 and 1:15, respiratory rate 33, blood pressure 100/59, pulse ox 96% on 3 L nasal cannula. Blood sugars are running between 190 and 222.patient has been seen and followed by pulmonary medicine with recommendations to decrease Solu-Medrol, Perforomist added, dani nue Pulmicort, DuoNeb treatments. No antibiotics are needed. Patient has been seen by cardiology and echocardiogram has been ordered. Anticipate possible discharge in the next 24-48 hours. 01/23: Patient remains in atrial fibrillation. She denies having any chest pain. She has occasional cough. She states she is eating okay. Solu-Medrol will be decreased to 40 mg every [address] Kang has started her on prednisone for morning. Patient has been seen and followed by cardiology and Cardizem has been increased to 240 mg at night, metoprolol tartrate has been increased to 100 mg twice a day and patient to continue same dose of digoxin, Lasix, eliquis statin and losartan. Echocardiogram reveals EF of 55-60% with moderate concentric left ventricular hypertrophy, mild to moderate aortic regurgitation, mild aortic stenosis, [id number] mitral regurgitation, mild to moderate tricuspid regurgitation, mild to moderate pulmonary hypertension. Anticipate probable discharge home tomorrow. REVIEW OF SYSTEMS Constitutional: No fever, no chills, no night sweats. No weight change. Reports weakness, Reports fatigue no lethargy. No daytime sleepiness. EENT: No headache. No blurred vision or double vision, no loss of vision. No loss of Hearing, no ringing in the ears, no dizziness. No nasal drainage or congestion. No epistaxis. No sore throat. Lungs: Denies shortness of breath-improving, Reports cough, no sputum production. Reports wheezing. Cardiovascular: No chest pain, no lower extremity edema. No palpitations. No paroxysmal nocturnal dyspnea. No orthopnea. No lightheadedness or dizziness. No syncopal episodes. Abdominal: No abdominal pain. No nausea, vomiting. No diarrhea. No constipation. No bloody or tarry stools.. No loss of appetite. Genitourinary: No dysuria, increased frequency, urgency. No urinary retention. Musculoskeletal: No myalgias. No muscle weakness, no gait dysfunction, no frequent falls. No back pain. No neck pain. Integumentary: No wounds, no lesions. No rash or pruritus. No unusual bruising. No change in hair or nails. Neurologic: No aphasia. No facial droop. No change in mentation. No head injury. No headache. No paralysis. No paresthesia. Psychiatric: No depression. No anxiety. No mood swings. Endocrine: No abnormal blood sugars. PHYSICAL EXAMINATION Gen: This is an 89-year-old female. She is sitting on edge of bed and appears to be comfortable at rest. No acute respiratory distress is noted. HEENT: Head is atraumatic, normocephalic. Pupils equal, round. Sclerae is anicteric. NECK: Supple. No JVD. No lymphadenopathy. No thyromegaly. Chest: decrease breath sounds at the bases with few ronchi , minimal expiratory wheezes no chest wall tenderness or intercostal retractions. Heart: Irregularly irregular. first heart sound is depressed second heart sound is normal there FLORY 2/6 located at the left sternal border. ABDOMEN: Soft. Bowel sounds are present. No masses. No tenderness. EXTREMITIES: Trace pedal edema. No calf tenderness. Dorsalis pedis +1 bilaterally. NEUROLOGICAL: Patient is awake, alert and oriented x3. Cranial nerves 2 through 12 are grossly intact. ASSESSMENT AND PLAN 1. COPD the exacerbation. Consult with pulmonary medicine appreciated, Continue Solu-Medrol decreased to 40 mg every 12 hours and start prednisone in the morning, DuoNeb treatments 4 times daily and as needed, Pulmicort 1 mg twice daily, Perforomist twice daily. 2. Atrial fibrillation, paroxysmal. Patient currently in A. fib. Cardiology consult appreciated. Continue Digoxin 125 mcg orally daily, Cardizem CD increased to 240 mg orally at bedtime, Metoprolol increased to 100 mg orally bid and continue Eliquis 2.5 mg orally bid. Echocardiogram as above 3. Jaw and teeth pain. Rule out unstable angina. Consult cardiology. 4. Hypertension and hypertensive cardiovascular disease. Continue Losartn 25 mg orally daily, Metoprolol. 5. Hyperlipidemia. Continue Lipitor 20 mg orally daily. 6. Chronic diastolic heart failure. we will continue with Lasix 20 mg orally bid, LOsartan 25 mg orally daily and Metoprolol. 7. 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 we will continue with above treatment. 8. GERD. we will continue with Pecid 20 mg orally daily. 9. CAD. Continue with Metoprolol, Lipitor 20 mg orally daily and IMdur 15 mg orally daily. 10. DVT prophylaxis. Continue eliquis. DISCHARGE PLAN Home on Tuesday. Impression and plan of care have been directed as dictated by the signing physician. Noelle Gilbert nurse practitioner acting as scribe for signing physician. Objective - Vital Signs Vital signs: Vital Signs Temp 97.6 F 01/23/21 02:00 Pulse 118 H 01/23/21 02:00 Resp 19 01/23/21 02:00 BP 159/84 01/23/21 02:00 Pulse Ox 97 01/23/21 02:00 Intake & Output 01/22/21 01/23/21 01/23/21 18:59 06:59 18:59 Other: # Voids 3 2 # Bowel Movements 1 - Labs CBC & Chem 7: 01/21/21 08:22 01/21/21 08:22 Labs: Abnormal Lab Results - Last 24 Hours (Table) 01/22/21 01/22/2101/22/21 Range/Units 10:55 16:41 20:08 POC Glucose (mg/dL) 201 H 256 H 276 H (75-99) mg/dL 01/23/21 Range/Units 07:14 POC Glucose (mg/dL) 216 H (75-99) mg/dL
[2021-01-23 17:15] LABS: Glucose,Whole Blood 273 mg/dL (75-99)
[2021-01-23] MEDS: DIGOXIN 125 MCG TAB PO SCH (17:30)
[2021-01-23] MEDS: metFORMIN 500 MG TAB PO SCH (17:30)
[2021-01-23 20:10] LABS: Glucose,Whole Blood 267 mg/dL (75-99)
[2021-01-23] MEDS ORDERED: DILTIAZEM CD 240 MG CAP.ER.24H PO SCH (21:00)
[2021-01-23] MEDS: SYMBICORT 160-4.5 MCG INHALER INHALATION SCH (21:02)
[2021-01-23] MEDS: ATORVASTATIN 20 MG TAB PO SCH (21:19)
[2021-01-23] MEDS: MELATONIN 5 MG TABLET PO SCH (21:19)
[2021-01-24 06:58] LABS: Glucose,Whole Blood 154 mg/dL (75-99)
[2021-01-24] MEDS: POTASSIUM CHLORIDE ER 10 MEQ TAB.ER.PRT PO SCH (07:37)
[2021-01-24] MEDS: FUROSEMIDE 20 MG TAB PO SCH ×2 (07:37→12:09)
[2021-01-24] MEDS: LOSARTAN 25 MG TAB PO SCH (07:37)
[2021-01-24] MEDS: PANTOPRAZOLE 40 MG TABLET PO SCH (07:37)
[2021-01-24] MEDS: ISOSORBIDE MONONITRATE ER 15 MG TAB PO SCH (07:37)
[2021-01-24] MEDS: METOPROLOL TARTRATE 50 MG TAB PO SCH (07:37)
[2021-01-24] MEDS: APIXABAN 2.5 MG TABLET PO SCH (07:37)
[2021-01-24] MEDS: INSULIN ASPART (NovoLOG) 100 UNIT/ML VIAL SQ SCH ×2 (07:38→12:11)
[2021-01-24] MEDS: DAPAGLIFLOZIN PROPANEDIOL 5 MG PO SCH (07:38)
[2021-01-24] MEDS: FAMOTIDINE 20 MG TAB PO SCH (07:40)
[2021-01-24 07:47] VITALS: BP 150/74; RESP 20; TEMP 97.5
[2021-01-24] MEDS: IPRATROPIUM-ALBUTEROL 3 ML NEB INHALATION SCH ×2 (08:40→12:17)
[2021-01-24] MEDS: SYMBICORT 160-4.5 MCG INHALER INHALATION SCH (08:40)
[2021-01-24] MEDS ORDERED: predniSONE 20 MG TAB PO SCH (09:00)
[2021-01-24 11:42] LABS: Glucose,Whole Blood 211 mg/dL (75-99)
--- NOTE | 2021-01-24 11:56 | P.DS ---
Providers Date of admission: 01/21/21 10:09 Expected date of discharge: 01/24/21 Attending physician: Phoenix Gutiérrez Consults: 01/21/21 10:09 Consult Physician Routine Consulting Provider: Shruti Plasencia Consult Reason/Comments: COPD Do you want consulting provider notified?: Yes 01/21/21 14:27 Consult Physician Routine Consulting Provider: Igor Stevenson Consult Reason/Comments: afib, jaw pain Do you want consulting provider notified?: Yes Primary care physician: Phoenix Gutiérrez Hospital Course: HISTORY OF PRESENT ILLNESS This is an 89-year old- female patient of Dr. Gutiérrez with a previous medical history significant for hypertension and hypertensive cardiovascular disease, hyperlipidemia, Paroxysmal atrial fibrillation, 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 and steroid dependent has been doing fine with her O2 and Nebulized treatment at home till recently where she found to be more short of breath with increased coughing despite using her Updraft treatment. She gives history that Dr. St recently decreased her steroids from 10 mg to 5 mg daily. She also complains of pain in her jaw and teeth a couple days ago and took baby aspirins. Patient presented to [facility] emergency center for evaluation. She was found to be afebrile, heart rate 87, respiratory rate 26, blood pressure 152/66, pulse ox 92%. EKG was atrial flutter. WBC 12.1, hemoglobin 15.2, platelet count 234. Sodium 139, potassium 4.3, chloride 101, CO2 31, BUN 19 creatinine 0.96. Blood sugar 151. Magnesium 2.5. Liver function tests were normal. Troponin negative. ProBNP 2830. Lactic acid 2. Chest x-ray reveals no acute cardiopulmonary process. Chronic changes. Patient admitted to the [facility] floor, consult with pulmonary medicine. 01/22: Patient has been afebrile, heart rate between 67 and 1:15, respiratory rate 33, blood pressure 100/59, pulse ox 96% on 3 L nasal cannula. Blood sugars are running between 190 and 222.patient has been seen and followed by pulmonary medicine with recommendations to decrease Solu-Medrol, Perforomist added, continue Pulmicort, DuoNeb treatments. No antibiotics are needed. Patient has been seen by cardiology and echocardiogram has been ordered. Anticipate possible discharge in the next 24-48 hours. 01/23: Patient remains in atrial fibrillation. She denies having any chest pain. She has occasional cough. She states she is eating okay. Solu-Medrol will be decreased to 40 mg every [address] Kang has started her on prednisone for morning. Patient has been seen and followed by cardiology and Cardizem has been increased to 240 mg at night, metoprolol tartrate has been increased to 100 mg twice a day and patient to continue same dose of digoxin, Lasix, eliquis statin and losartan. Echocardiogram reveals EF of 55-60% with moderate concentric left ventricular hypertrophy, mild to moderate aortic regurgitation, mild aortic stenosis, [id number] mitral regurgitation, mild to moderate tricuspid regurgitation, mild to moderate pulmonary hypertension. Anticipate probable discharge home tomorrow. Discharge diagnoses" 1. COPD exacerbation. . 2. Atrial fibrillation, paroxysmal. 3. Jaw and teeth pain. 4. Hypertension and hypertensive cardiovascular disease. 5. Hyperlipidemia. 6. Chronic diastolic heart failure. 7. 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 8. GERD. 9. CAD. 10. Diabetes mellitus type 2. Patient Condition at Discharge: Stable Plan - Discharge Summary New Discharge Prescriptions: No Action Apixaban [Eliquis] 2.5 mg PO BID tablet Famotidine [Pepcid] 20 mg PO AC-BID Potassium Chloride [Klor-Con 10] 10 meq PO BID-W/MEALS Budesonide [Pulmicort] 1 mg INHALATION RT-BID nebu Furosemide [Lasix] 20 mg PO BID@0800,1200 Risedronate Sodium [Risedronate Sodium Dr] 35 mg PO MO predniSONE 5 mg PO DAILY Omeprazole 20 mg PO DAILY Isosorbide Mononitrate ER [Imdur] 15 mg PO DAILY Digoxin [Digitek] 125 mcg PO W/SUPPER Atorvastatin [Lipitor] 20 mg PO HS Albuterol Inhaler [Ventolin Hfa Inhaler] 1 - 2 puff INHALATION RT-Q6H PRN PRN Reason: Shortness Of Breath Metoprolol Tartrate [Lopressor] 25 mg PO BID Metoprolol Tartrate [Lopressor] 50 mg PO BID Calcium Carbonate [Calcium] 600 mg PO W/LUNCH Melatonin 5 mg PO HS Dapagliflozin Propanediol [Farxiga] 5 mg PO DAILY Furosemide [Lasix] 20 mg PO BID@0800,1200 metFORMIN HCL [Glucophage] 1,000 mg PO W/SUPPER Ipratropium-Albuterol Nebulize [Duoneb 0.5 mg-3 mg/3 ml Soln] 3 ml INHALATION RT-Q6H Magnesium Oxide [Mag-Ox] 400 mg PO W/LUNCH Cyanocobalamin (Vitamin B-12) [Vitamin B-12] 1,000 mcg PO W/LUNCH Diltiazem HCl [Cartia Xt] 180 mg PO HS Losartan [Cozaar] 25 mg PO DAILY Discharge Medication List Apixaban [Eliquis] 2.5 mg PO BID tablet 08/11/17 [Rx] Famotidine [Pepcid] 20 mg PO AC-BID 10/23/17 [History] Potassium Chloride [Klor-Con 10] 10 meq PO BID-W/MEALS 10/23/17 [History] Budesonide [Pulmicort] 1 mg INHALATION RT-BID nebu 07/19/18 [Rx] Albuterol Inhaler [Ventolin Hfa Inhaler] 1 - 2 puff INHALATION RT-Q6H PRN 06/16/20 [History] Atorvastatin [Lipitor] 20 mg PO HS 06/16/20 [History] Digoxin [Digitek] 125 mcg PO W/SUPPER 06/16/20 [History] Furosemide [Lasix] 20 mg PO BID@0800,1200 06/16/20 [History] Isosorbide Mononitrate ER [Imdur] 15 mg PO DAILY 06/16/20 [History] Metoprolol Tartrate [Lopressor] 25 mg PO BID 06/16/20 [History] Metoprolol Tartrate [Lopressor] 50 mg PO BID 06/16/20 [History] Omeprazole 20 mg PO DAILY 06/16/20 [History] Risedronate Sodium [Risedronate Sodium Dr] 35 mg PO MO 06/16/20 [History] predniSONE 5 mg PO DAILY 06/16/20 [History] Calcium Carbonate [Calcium] 600 mg PO W/LUNCH 01/21/21 [History] Cyanocobalamin (Vitamin B-12) [Vitamin B-12] 1,000 mcg PO W/LUNCH 01/21/21 [History] Dapagliflozin Propanediol [Farxiga] 5 mg PO DAILY 01/21/21 [History] Diltiazem HCl [Cartia Xt] 180 mg PO HS 01/21/21 [History] Furosemide [Lasix] 20 mg PO BID@0800,1200 01/21/21 [History] Ipratropium-Albuterol Nebulize [Duoneb 0.5 mg-3 mg/3 ml Soln] 3 ml INHALATION RT-Q6H 01/21/21 [History] Losartan [Cozaar] 25 mg PO DAILY 01/21/21 [History] Magnesium Oxide [Mag-Ox] 400 mg PO W/LUNCH 01/21/21 [History] Melatonin 5 mg PO HS 01/21/21 [History] metFORMIN HCL [Glucophage] 1,000 mg PO W/SUPPER 01/21/21 [History] Follow up Appointment(s)/Referral(s): Phoenix Gutiérrez MD [Primary Care Provider] - 1-2 days Josh Pina MD [STAFF PHYSICIAN] - 2 Weeks Santosh Pang MD [STAFF PHYSICIAN] - 1 Week
[2021-01-24 12:07] LABS: Basophils % (A) 0 %; Eosinophils # (A) 0.1 k/uL (0-0.7); Eosinophils % (A) 1 %; HGB 14.5 gm/dL (11.4-16.0); Hypochromasia Slight; Lymphocytes # (A) 0.6 k/uL (1.0-4.8); Lymphocytes % (A) 4 %; MCH 29.7 pg (25.0-35.0); MCHC 30.8 g/dL (31.0-37.0); MCV 96.2 fL (80.0-100.0); Mean Platelet Volume 7.9; Monocytes # (A) 0.7 k/uL (0-1.0); Monocytes % (A) 5 %; Neutrophils # (A) 12.7 k/uL (1.3-7.7); Neutrophils % (A) 89 %; Platelet Count 239 k/uL (150-450); RBC 4.88 m/uL (3.80-5.40); WBC 14.3 k/uL (3.8-10.6)
[2021-01-24] MEDS: CYANOCOBALAMIN 500 MCG TAB PO SCH (12:09)
[2021-01-24] MEDS: MAGNESIUM OXIDE 400 MG TAB PO SCH (12:09)
[2021-01-24] MEDS: CALCIUM CARBONATE 500 MG CHEWABLE PO SCH (12:09)
[2021-01-24 12:24] LABS: ALT 41 U/L (4-34); AST 30 U/L (14-36); African American GFR (CKD) 71 (>60 ml/min/1.73 sqM); Albumin/Globulin Ratio 2.1; Alkaline Phosphatase 54 U/L (38-126); Anion Gap 10 mmol/L; Blood Urea Nitrogen 37 mg/dL (7-17); Calcium 8.7 mg/dL (8.4-10.2); Carbon Dioxide 29 mmol/L (22-30); Chloride 98 mmol/L (98-107); Globulin 1.9 g/dL; Glucose 200 mg/dL (74-99); Magnesium 2.6 mg/dL (1.6-2.3); Non-African American GFR(CKD) 62 (>60 ml/min/1.73 sqM); Potassium 4.7 mmol/L (3.5-5.1); Sodium 137 mmol/L (137-145); Total Bilirubin 0.4 mg/dL (0.2-1.3); Total Protein 5.9 g/dL (6.3-8.2)
[2021-01-24 12:29] VITALS: PULSE 86
--- NOTE | 2021-01-24 13:03 | P.PN ---
Subjective Progress Note Date: 01/24/21 Principal diagnosis: Shortness of breath. Pulmonary consult dated 01/21/2021. 89-year-old female, with a history of atrial fibrillation, heart failure, and COPD, who presents to the emergency department on January 21, complaining of shortness of breath. She states that her shortness of breath is been present for at least a couple weeks. She saw my partner for her COPD 3 weeks ago, and at that time she was doing well. She states that over the last couple days, things seem to have gotten worse. She was told in the emergency room that she had atrial fibrillation, and that was part of the problem. She does not have a cough to any great extent. She does not produce any phlegm. There is no fever or chills. She denies chest pain or chest discomfort. She does use a number breathing medications are home including albuterol sulfate, budesonide, and Perforomist. She states that those medications have not really been helping her that much. Current laboratory data includes a white count 12.1, hemoglobin 15.2, hematocrit 48.2, and platelet count 234,000. PT, INR, and PTT are normal. Sodium 139, potassium 4.3, chlorides 101, CO2 31, anion gap 7, BUN 19, and creatinine 0.96. Troponin was less than 0.012 and N-terminal proBNP was 2830. Chest x-ray was interpreted by the radiologist as showing no acute cardiopulmonary disease. In my opinion, there is a small component of fluid overload. Progress note dated 01/22/2021. This is a very pleasant 89-year-old female who was admitted to the hospital with a diagnosis of shortness of breath, likely related to underlying COPD exacerbation, mild CHF, and atrial fibrillation with rapid ventricular response. The patient is feeling better today compared to yesterday. The patient has no new labs to report today. Labs from January 21 are evaluated. Chest x-ray showed only chronic changes, nothing acute. She was told by her primary care physician that she might go home tomorrow. Progress note dated 01/23/2021. This is a very pleasant 89-year-old female was admitted to the hospital with a diagnosis of shortness of breath, multifactorial, in part related to underlying COPD exacerbation, mild CHF, and atrial fibrillation with rapid ventricular response. It appears that her atrial fibrillation is giving her the most trouble. Clinically, from the pulmonary standpoint, she is doing well. Her breathing is much improved. She was going to go home today but apparently the doctors are keeping her because of the atrial fibrillation. No new labs today. No recent chest x-ray to report. Progress note dated 01/24/2021. This is a pleasant 89-year-old female was admitted to the hospital with shortness of breath, which was related to A. fib, RVR, COPD exacerbation, as well as mild CHF/fluid overload. She doing much better. There is a chance, she may be discharged home today. She's feeling much improved. From the lung standpoint, she is doing well. Currently, she is on 2 L, and her saturation is excellent. Also, her heart rate is better controlled. Labs today include a white count 14.3, platelet count 239,000, and hemoglobin 14.5. Sodium potassium chloride CO2 normal. Anion gap is 10 BUN 37 and creatinine 0.84. Objective - Vital Signs Vital signs: Vital Signs Temp 97.5 F L 01/24/21 07:44 Pulse 86 01/24/21 12:28 Resp 20 01/24/21 07:44 BP 150/74 01/24/21 07:44 Pulse Ox 93 L 01/24/21 07:44 Intake & Output 01/23/21 01/24/21 01/24/21 18:59 06:59 18:59 Intake Total 1080 Balance 1080 Intake: Oral 1080 Other: Voiding Method Toilet # Voids 5 # Bowel Movements 1 - Exam Oriented 3, mild conversational dyspnea, without use of accessory muscles or audible wheezing. 2 L saturation is 96%. HEENT examination is grossly unremarkable. Neck supple. Full range of motion. No adenopathy thyromegaly or neck vein distention. Cardiovascular examination reveals irregular rhythm and rate. S1-S2 normal. No S3 or S4. No discernible murmur noted. Heart rate 86 bpm. Heart sounds distant. Lungs reveal very diminished breath sounds. Mild scattered crackles are noted. Scattered rhonchi are also appreciated. There are no wheezes. Breath sounds are equal bilaterally. Abdomen soft bowel sounds are heard. No masses or tenderness. Extremities are intact. No cyanosis clubbing or edema. Skin is without rash or lesion. Neurologic examination is brief but nonfocal. - Labs CBC & Chem 7: 01/24/21 11:32 01/24/21 11:32 Labs: Abnormal Lab Results - Last 24 Hours (Table) 01/23/21 01/23/21 01/24/21 Range/Units 17:15 20:08 06:56 WBC (3.8-10.6) k/uL Hct (34.0-46.0) % MCHC (31.0-37.0) g/dL Neutrophils # (1.3-7.7) k/uL Lymphocytes # (1.0-4.8) k/uL BUN (7-17) mg/dL Glucose (74-99) mg/dL POC Glucose (mg/dL) 273 H 267 H 154 H (75-99) mg/dL Magnesium (1.6-2.3) mg/dL ALT (4-34) U/L Total Protein (6.3-8.2) g/dL 01/24/21 01/24/21 01/24/21 Range/Units 11:32 11:32 11:39 WBC 14.3 H (3.8-10.6) k/uL Hct 47.0 H (34.0-46.0) % MCHC 30.8 L (31.0-37.0) g/dL Neutrophils # 12.7 H (1.3-7.7) k/uL Lymphocytes # 0.6 L (1.0-4.8) k/uL BUN 37 H (7-17) mg/dL Glucose 200 H (74-99) mg/dL POC Glucose (mg/dL) 211 H (75-99) mg/dL Magnesium 2.6 H (1.6-2.3) mg/dL ALT 41 H (4-34) U/L Total Protein 5.9 L (6.3-8.2) g/dL Assessment and Plan Assessment: Shortness of breath, likely multifactorial, in part related to COPD exacerbation, atrial fibrillation with RVR, and mild fluid overload. History of atrial fibrillation. History of skin cancer. History of macular degeneration. History of CHF. History of moderately severe COPD, with an FEV1 percent of 56, secondary to previous tobacco use. History of GERD. Hyperlipidemia. History of hypertension. DJD. Status post pacemaker. Plan: Plan dated 01/21/2021. The patient's medications will be reviewed. We'll make sure she is on approp riate medications for COPD exacerbation. We will continue to follow the patient and make recommendations where appropriate. The patient be placed on short-term beta agonist, short-term muscarinic antagonist, long-acting beta agonist, inhaled corticosteroids, and systemic corticosteroids. No antibiotic is necessary at this time. Additional recommendations are forthcoming. Plan dated 01/22/2021. Currently, the patient's doing well. The patient does not need antibiotics in my opinion. Her antibiotics are discontinued. She'll need to follow-up with her lung doctor after discharge. The patient apparently was told by her primary doctor that she would be discharged tomorrow. She's feeling much better today. Much less short of breath. Additional recommendations and suggestions are for thcoming. We will continue to follow and make recommendations where appropriate. Plan dated 01/23/2021. Currently, the patient is doing well from the pulmonary standpoint. The patient could be discharged home based on the pulmonary situation. Unfortunately, she's having issues with her atrial fibrillation and rapid ventricular response. Therefore, I believe she staying another day at least. We will continue to follow and continue make recommendations were appropriate. Prognosis is guarde d. Medications are reviewed. Plan dated 01/24/2021. Currently, the patient's doing much better. Her COPD seems to be well- controlled. In addition, her heart rate and her atrial fibrillation are better controlled. Her saturations on 2 L, is 96%. Clinically, from our standpoint, the patient could be considered for possible discharge. We will leave that up to the primary. The patient will follow-up in our office. Additional recommendations and suggestions are forthcoming. Time with Patient: Less than 30
== END 2021-01-24 14:00 | disposition home or self-care (01) | DRG 191 ==
LOC: EC 07:58 → 4SSUR 10:09
PROVIDERS: ADMIT Internal Medicine; ATTEND Internal Medicine
DX: J44.1 Chronic obstructive pulmonary disease with (acute) exacerbation (principal); I50.32 Chronic diastolic (congestive) heart failure; J96.11 Chronic respiratory failure with hypoxia; I48.19 Other persistent atrial fibrillation; I48.4 Atypical atrial flutter; E11.9 Type 2 diabetes mellitus without complications; I11.0 Hypertensive heart disease with heart failure; Z96.1 Presence of intraocular lens; I27.20 Pulmonary hypertension, unspecified; K21.9 Gastro-esophageal reflux disease without esophagitis; M19.90 Unspecified osteoarthritis, unspecified site; I25.10 Atherosclerotic heart disease of native coronary artery without angina pectoris; I49.5 Sick sinus syndrome; R68.84 Jaw pain; E78.5 Hyperlipidemia, unspecified; I08.3 Combined rheumatic disorders of mitral, aortic and tricuspid valves; K08.89 Other specified disorders of teeth and supporting structures; Z99.81 Dependence on supplemental oxygen; Z95.0 Presence of cardiac pacemaker; Z87.891 Personal history of nicotine dependence; Z85.828 Personal history of other malignant neoplasm of skin; Z82.49 Family history of ischemic heart disease and other diseases of the circulatory system; Z80.0 Family history of malignant neoplasm of digestive organs; Z79.899 Other long term (current) drug therapy; Z79.84 Long term (current) use of oral hypoglycemic drugs; Z79.52 Long term (current) use of systemic steroids; Z79.01 Long term (current) use of anticoagulants
CPT/HCPCS: 36415; 71046; 80053; 83605; 83735; 83880; 84484; 85025; 85610; 85730; 93005; 93306; 94640; 94760; 96374; 99285

== ENCOUNTER 2021-02-13 11:13 | Emergency (ER) | payer OTHER, MEDICARE ==
[2021-02-13 11:25] VITALS: RESP 18; TEMP 98.3
[2021-02-13] MEDS ORDERED: DIPH,PERTUS(ACELL)TETVAC-LF 0.5 ML VIAL IM ONE (11:39)
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
[2021-02-13 12:48] LABS: ALT 16 U/L (4-34); AST 22 U/L (14-36); African American GFR (CKD) 77 (>60 ml/min/1.73 sqM); Albumin 3.9 g/dL (3.5-5.0); Alcohol <10 mg/dL; Alkaline Phosphatase 57 U/L (38-126); Anion Gap 6 mmol/L; Blood Urea Nitrogen 25 mg/dL (7-17); Calcium 9.4 mg/dL (8.4-10.2); Carbon Dioxide 30 mmol/L (22-30); Chloride 97 mmol/L (98-107); Glucose 134 mg/dL (74-99); Non-African American GFR(CKD) 67 (>60 ml/min/1.73 sqM); Potassium 4.6 mmol/L (3.5-5.1); Sodium 133 mmol/L (137-145); Total Bilirubin 0.8 mg/dL (0.2-1.3); Total Protein 5.7 g/dL (6.3-8.2)
[2021-02-13 12:50] LABS: Partial Thromboplastin Time 26.9 sec (22.0-30.0); Prothrombin Time 10.4 sec (9.0-12.0)
[2021-02-13 13:11] LABS: Basophils % (A) 0 %; Eosinophils # (A) 0.1 k/uL (0-0.7); Eosinophils % (A) 1 %; HCT 44.7 % (34.0-46.0); HGB 14.9 gm/dL (11.4-16.0); Lymphocytes % (A) 10 %; MCH 30.4 pg (25.0-35.0); MCHC 33.4 g/dL (31.0-37.0); Mean Platelet Volume 7.2; Monocytes # (A) 0.5 k/uL (0-1.0); Monocytes % (A) 6 %; Neutrophils # (A) 7.5 k/uL (1.3-7.7); Neutrophils % (A) 82 %; Platelet Count 225 k/uL (150-450); RBC 4.92 m/uL (3.80-5.40); RDW 14.3 % (11.5-15.5); WBC 9.3 k/uL (3.8-10.6)
[2021-02-13 13:58] LABS: Appearance,Urine Clear (Clear); Bilirubin,Urine Negative (Negative); Blood,Urine Trace (Negative); Color,Urine Light Yellow; Glucose,Urine (UA) 4+ (Negative); Ketones,Urine Negative (Negative); Leukocyte Esterase,Urine Large (Negative); Nitrite,Urine Negative (Negative); PH, Urine 6.5 (5.0-8.0); Protein,Urine Negative (Negative); RBC,Urine 1 /hpf (0-5); Specific Gravity,Urine 1.011 (1.001-1.035); Squamous Epithelial Cell,Urine 1 /hpf (0-4); Urobilinogen,Urine <2.0 mg/dL (<2.0); WBC,Urine 10 /hpf (0-5)
[2021-02-13 14:58] VITALS: BP 108/53; PULSE 61
== END 2021-02-13 15:17 | disposition home or self-care (01) ==
LOC: EC 11:13
DX: S00.83XA Contusion of other part of head, initial encounter (principal); I11.0 Hypertensive heart disease with heart failure; I50.9 Heart failure, unspecified; E78.5 Hyperlipidemia, unspecified; I48.91 Unspecified atrial fibrillation; J44.9 Chronic obstructive pulmonary disease, unspecified; K21.9 Gastro-esophageal reflux disease without esophagitis; M19.90 Unspecified osteoarthritis, unspecified site; Z79.01 Long term (current) use of anticoagulants; Z79.51 Long term (current) use of inhaled steroids; Z79.52 Long term (current) use of systemic steroids; Z79.84 Long term (current) use of oral hypoglycemic drugs; Z79.899 Other long term (current) drug therapy; Z82.49 Family history of ischemic heart disease and other diseases of the circulatory system; Z87.891 Personal history of nicotine dependence; Z88.2 Allergy status to sulfonamides; Z95.0 Presence of cardiac pacemaker; Z23 Encounter for immunization; V89.2XXA Person injured in unspecified motor-vehicle accident, traffic, initial encounter; Y92.410 Unspecified street and highway as the place of occurrence of the external cause
CPT/HCPCS: 36415; 70450; 71045; 72125; 72170; 80053; 80320; 81001; 84484; 85025; 85610; 85730; 90471; 90715; 93005; 99285

== ENCOUNTER 2021-04-27 09:58 | Inpatient (IN) | payer MEDICARE ==
[2021-04-27] MEDS ORDERED: methylPREDNISolone SOD SUCCI 125 MG/2 ML VIAL IV STA (10:03)
[2021-04-27] MEDS ORDERED: IPRATROPIUM 0.5 MG/2.5 ML NEBU INHALATION STA (10:03)
[2021-04-27] MEDS ORDERED: ALBUTEROL NEBULIZED 2.5 MG/3 ML INHALATION STA (10:03)
[2021-04-27 10:26] LABS: Basophils # (A) 0.1 k/uL (0-0.2); Basophils % (A) 0 %; Eosinophils # (A) 0.3 k/uL (0-0.7); Eosinophils % (A) 2 %; HCT 49.4 % (34.0-46.0); HGB 15.3 gm/dL (11.4-16.0); Lymphocytes # (A) 1.6 k/uL (1.0-4.8); Lymphocytes % (A) 13 %; MCH 29.4 pg (25.0-35.0); Mean Platelet Volume 7.7; Monocytes # (A) 0.6 k/uL (0-1.0); Monocytes % (A) 4 %; Neutrophils # (A) 10.4 k/uL (1.3-7.7); Neutrophils % (A) 80 %; Platelet Count 247 k/uL (150-450); RDW 14.3 % (11.5-15.5); WBC 13.1 k/uL (3.8-10.6)
--- NOTE | 2021-04-27 10:30 | XR ---
EXAMINATION TYPE: XR chest 1V portable DATE OF EXAM: 04/27/2021 HISTORY: Shortness of breath. COMPARISON: 02/13/21 TECHNIQUE: Single view of the chest is submitted. FINDINGS: Demonstrated are scattered senescent parenchymal change. Patchy basilar densities may reflect developing infiltrate. The heart is stable. Hilar and mediastinal structures are within normal limits. Degenerative changes are seen of the dorsal spine. IMPRESSION: 1. Patchy basilar densities may reflect developing infiltrate.
[2021-04-27] MEDS ORDERED: AZITHROMYCIN 500 MG in SODIUM CHLORIDE 0.9% 250 ML IVPB STA (10:31)
[2021-04-27] MEDS ORDERED: cefTRIAXone IN SWFI 1,000 MG/10 ML SYRINGE IVP STA (10:31)
[2021-04-27 10:39] LABS: Albumin 4.3 g/dL (3.5-5.0); Total Bilirubin 1.2 mg/dL (0.2-1.3); Total Protein 6.7 g/dL (6.3-8.2)
[2021-04-27 10:41] LABS: Partial Thromboplastin Time 24.2 sec (22.0-30.0); Prothrombin Time 10.8 sec (9.0-12.0)
[2021-04-27 10:44] LABS: Magnesium 2.5 mg/dL (1.6-2.3); Potassium 5.6 mmol/L (3.5-5.1)
[2021-04-27] MEDS ORDERED: NALOXONE 0.4 MG/ML 1 ML VIAL IV PRN (11:32)
[2021-04-27] MEDS ORDERED: ACETAMINOPHEN TAB 325 MG TAB PO PRN (11:32)
[2021-04-27] MEDS ORDERED: SYMBICORT 160-4.5 MCG INHALER INHALATION STA (11:33)
--- NOTE | 2021-04-27 11:37 | ED ---
General Adult HPI - General Chief complaint: Shortness of Breath Stated complaint: SOB Time Seen by Provider: 04/27/21 10:01 Source: patient, EMS, RN notes reviewed, old records reviewed Mode of arrival: EMS Limitations: no limitations - History of Present Illness Initial comments: 89-year-old female presenting in severe respiratory distress. Paramedics had been called this morning and patient was found to be hypoxic in the 60s. She was placed on CPAP and transported. There was no preceding cough or fever. No chest pain. Patient had been seen by her primary care physician approximately 3 days ago. She is fully vaccinated against coronavirus. - Related Data Home Medications Medication Instructions Recorded Confirmed Famotidine [Pepcid] 20 mg PO AC-BID 10/23/17 02/13/21 Potassium Chloride [Klor-Con 10 ER] 10 meq PO BID-W/MEALS 10/23/17 02/13/21 Albuterol Inhaler [Ventolin Hfa 1 - 2 puff INHALATION RT-QID PRN 06/16/20 02/13/21 Inhaler] Atorvastatin [Lipitor] 20 mg PO HS 06/16/20 02/13/21 Digoxin [Digitek] 62.5 mcg PO [id number]@2100 06/16/20 02/13/21 Isosorbide Mononitrate ER [Imdur] 15 mg PO DAILY 06/16/20 02/13/21 Omeprazole 20 mg PO DAILY 06/16/20 02/13/21 Risedronate Sodium [Risedronate 35 mg PO MO 06/16/20 02/13/[address]] Calcium Carbonate [Calcium] 600 mg PO W/LUNCH 01/21/21 02/13/21 Cyanocobalamin (Vitamin B-12) 1,000 mcg PO W/LUNCH 01/21/21 02/13/21 [Vitamin B-12] Dapagliflozin Propanediol [Farxiga] 5 mg PO DAILY 01/21/21 02/13/21 Ipratropium-Albuterol Nebulize 3 ml INHALATION RT-QID 01/21/21 02/13/21 [Duoneb 0.5 mg-3 mg/3 ml Soln] Losartan [Cozaar] 25 mg PO DAILY 01/21/21 02/13/21 Magnesium Oxide [Mag-Ox] 400 mg PO W/LUNCH 01/21/21 02/13/21 Melatonin 5 mg PO HS 01/21/21 02/13/21 metFORMIN HCL [Glucophage] 1,000 mg PO W/SUPPER 01/21/21 02/13/21 Furosemide [Lasix] 20 mg PO BID@0800,1200 02/13/21 02/13/21 predniSONE 5 mg PO MOWEFR 02/13/21 02/13/21 predniSONE 10 mg PO SUTUTHSA 02/13/21 02/13/21 Previous Rx's Medication Instructions Recorded Apixaban [Eliquis] 2.5 mg PO BID tablet 08/11/17 Budesonide [Pulmicort] 1 mg INHALATION RT-BID nebu 07/19/18 Budesonide-Formot 160-4.5 Mcg 2 puff INHALATION RT-BID #1 puff 01/24/21 [Symbicort 160-4.5 Mcg Inhaler] Diltiazem Cd [Cardizem CD] 240 mg PO HS #90 cap.er.24h 01/24/21 Metoprolol Tartrate [Lopressor] 100 mg PO BID #180 tab 01/24/21 Allergies Allergy/AdvReac Type Severity Reaction Status Date / Time Sulfa (Sulfonamide Allergy Unknown Verified 02/13/21 14:03 Antibiotics) Childhood shellfish derived [Shellfish] AdvReac Nausea & Verified 02/13/21 14:03 Vomiting & Diarrhea Review of Systems ROS Statement: Those systems with pertinent positive or pertinent negative responses have been documented in the HPI. ROS Other: All systems not noted in ROS Statement are negative. Past Medical History Past Medical History: Atrial Fibrillation, Cancer, Heart Failure, COPD, GERD/Reflux, Hyperlipidemia, Hypertension, Osteoarthritis (OA) Additional Past Medical History / Comment(s): skin cancer on scalp, macular degeneration History of Any Multi-Drug Resistant Organisms: None Reported Past Surgical History: Hernia Repair, Pacemaker, Tonsillectomy Additional Past Surgical History / Comment(s): skin cancer removed from scalp, andrew cataracts Past Anesthesia/Blood Transfusion Reactions: No Reported Reaction Type of Cardiac Device: Permanent Pacemaker Device Placement Date:: 2017 Past Psychological History: No Psychological Hx Reported Smoking Status: Former smoker Past Alcohol Use History: Occasional Past Drug Use History: None Reported - Past Family History Father Family Medical History: Coronary Artery Disease (CAD) Additional Family Medical History / Comment(s): Father at age 91 with histo ry of heart disease. Mother Family Medical History: Cancer Additional Family Medical History / Comment(s): Mother at age 87 from pancreatic cancer. Brother(s) Additional Family Medical History / Comment(s): Patient has 1 brother that at age 93 from liver cancer. Sister(s) Additional Family Medical History / Comment(s): Patient has 2 sisters with no major medical problems. Daughter(s) Additional Family Medical History / Comment(s): Patient has a total of 4 children, 3 daughters and 1 son. One daughter at a young age and a motor vehicle accident. General Exam Limitations: no limitations General appearance: alert, in distress Head exam: Present: atraumatic, normocephalic Eye exam: Present: normal appearance, PERRL ENT exam: Present: mucous membranes dry Neck exam: Present: normal inspection. Absent: tenderness, meningismus Respiratory exam: Present: respiratory distress, wheezes, rhonchi, decreased breath sounds Cardiovascular Exam: Present: regular rate, irregular rhythm GI/Abdominal exam: Present: soft. Absent: distended, tenderness, guarding, rebound Extremities exam: Present: normal inspection, normal capillary refill. Absent: pedal edema, calf tenderness Neurological exam: Present: alert, oriented X3, CN II-XII intact. Absent: motor sensory deficit Psychiatric exam: Present: anxious Skin exam: Present: warm, dry, intact Course Vital Signs 04/27/21 04/27/21 04/27/21 10:03 10:23 10:31 Temperature 98.9 F Pulse Rate 87 84 89 Respiratory 36 H 34 H Rate Blood Pressure 169/98 139/87 O2 Sat by Pulse 92 L 100 Oximetry 04/27/21 10:54 Temperature Pulse Rate 87 Respiratory Rate Blood Pressure O2 Sat by Pulse Oximetry EKG Findings - EKG Comments: EKG Findings:: EKG: Atrial fibrillation, baseline artifact, rate of 87, QRS duration 92, QTC 397, no ST segment elevation. Medical Decision Making - Medical Decision Making 89-year-old female history of COPD and CHF presenting with severe respiratory distress, hypoxia requiring BiPAP. Patient's testing does indicate a leukocytosis, stable hemoglobin, she has stable elevated BNP, negative troponin. She is Miller virus positive. She received albuterol, Atrovent, steroids in the emergency department. She is continued on BiPAP. She is admitted to Dr. Gutiérrez who is aware of the patient as well as her driving school instructor Dr. Plasencia who is able to evaluate her in the emergency department. - Lab Data Result diagrams: 04/27/21 10:14 04/27/21 10:14 Lab Results 04/27/21 04/27/21 04/27/21 Range/Units 10:14 10:14 10:14 WBC 13.1 H (3.8-10.6) k/uL RBC 5.20 (3.80-5.40) m/uL Hgb 15.3 (11.4-16.0) gm/dL Hct 49.4 H (34.0-46.0) % MCV 95.0 (80.0-100.0) fL MCH 29.4 (25.0-35.0) pg MCHC 31.0 (31.0-37.0) g/dL RDW 14.3 (11.5-15.5) % Plt Count 247 (150-450) k/uL MPV 7.7 Neutrophils % 80 % Lymphocytes % 13 % Monocytes % 4 % Eosinophils % 2 % Basophils % 0 % Neutrophils # 10.4 H (1.3-7.7) k/uL Lymphocytes # 1.6 (1.0-4.8) k/uL Monocytes # 0.6 (0-1.0) k/uL Eosinophils # 0.3 (0-0.7) k/uL Basophils # 0.1 (0-0.2) k/uL PT 10.8 (9.0-12.0) sec INR 1.0 (<1.2) APTT 24.2 (22.0-30.0) sec Sodium 133 L (137-145) mmol/L Potassium 5.6 H (3.5-5.1) mmol/L Chloride 95 L (98-107) mmol/L Carbon Dioxide 29 (22-30) mmol/L Anion Gap 9 mmol/L BUN 25 H (7-17) mg/dL Creatinine 0.99 (0.52-1.04) mg/dL Est GFR (CKD-EPI)AfAm 59 (>60 ml/min/1.73 sqM) Est GFR (CKD-EPI)NonAf 51 (>60 ml/min/1.73 sqM) Glucose 170 H (74-99) mg/dL Plasma Lactic Acid Lion (0.7-2.0) mmol/L Calcium 9.0 (8.4-10.2) mg/dL Magnesium 2.5 H (1.6-2.3) mg/dL Total Bilirubin 1.2 (0.2-1.3) mg/dL AST 45 H (14-36) U/L ALT 37 H (4-34) U/L Alkaline Phosphatase 61 (38-126) U/L Troponin I (0.000-0.034) ng/mL NT-Pro-B Natriuret Pep pg/mL Total Protein 6.7 (6.3-8.2) g/dL Albumin 4.3 (3.5-5.0) g/dL Coronavirus (PCR) (Not Detectd) 04/27/21 04/27/21 04/27/21 Range/Units 10:14 10:14 10:14 WBC (3.8-10.6) k/uL RBC (3.80-5.40) m/uL Hgb (11.4-16.0) gm/dL Hct (34.0-46.0) % MCV (80.0-100.0) fL MCH (25.0-35.0) pg MCHC (31.0-37.0) g/dL RDW (11.5-15.5) % Plt Count (150-450) k/uL MPV Neutrophils % % Lymphocytes % % Monocytes % % Eosinophils % % Basophils % % Neutrophils # (1.3-7.7) k/uL Lymphocytes # (1.0-4.8) k/uL Monocytes # (0-1.0) k/uL Eosinophils # (0-0.7) k/uL Basophils # (0-0.2) k/uL PT (9.0-12.0) sec INR (<1.2) APTT (22.0-30.0) sec Sodium (137-145) mmol/L Potassium (3.5-5.1) mmol/L Chloride (98-107) mmol/L Carbon Dioxide (22-30) mmol/L Anion Gap mmol/L BUN (7-17) mg/dL Creatinine (0.52-1.04) mg/dL Est GFR (CKD-EPI)AfAm (>60 ml/min/1.73 sqM) Est GFR (CKD-EPI)NonAf (>60 ml/min/1.73 sqM) Glucose (74-99) mg/dL Plasma Lactic Acid Lion 2.1 H* (0.7-2.0) mmol/L Calcium (8.4-10.2) mg/dL Magnesium (1.6-2.3) mg/dL Total Bilirubin (0.2-1.3) mg/dL AST (14-36) U/L ALT (4-34) U/L Alkaline Phosphatase (38-126) U/L Troponin I <0.012 (0.000-0.034) ng/mL NT-Pro-B Natriuret Pep 5130 pg/mL Total Protein (6.3-8.2) g/dL Albumin (3.5-5.0) g/dL Coronavirus (PCR) (Not Detectd) 04/27/21 Range/Units 10:26 WBC (3.8-10.6) k/uL RBC (3.80-5.40) m/uL Hgb (11.4-16.0) gm/dL Hct (34.0-46.0) % MCV (80.0-100.0) fL MCH (25.0-35.0) pg MCHC (31.0-37.0) g/dL RDW (11.5-15.5) % Plt Count (150-450) k/uL MPV Neutrophils % % Lymphocytes % % Monocytes % % Eosinophils % % Basophils % % Neutrophils # (1.3-7.7) k/uL Lymphocytes # (1.0-4.8) k/uL Monocytes # (0-1.0) k/uL Eosinophils # (0-0.7) k/uL Basophils # (0-0.2) k/uL PT (9.0-12.0) sec INR (<1.2) APTT (22.0-30.0) sec Sodium (137-145) mmol/L Potassium (3.5-5.1) mmol/L Chloride (98-107) mmol/L Carbon Dioxide (22-30) mmol/L Anion Gap mmol/L BUN (7-17) mg/dL Creatinine (0.52-1.04) mg/dL Est GFR (CKD-EPI)AfAm (>60 ml/min/1.73 sqM) Est GFR (CKD-EPI)NonAf (>60 ml/min/1.73 sqM) Glucose (74-99) mg/dL Plasma Lactic Acid Lion (0.7-2.0) mmol/L Calcium (8.4-10.2) mg/dL Magnesium (1.6-2.3) mg/dL Total Bilirubin (0.2-1.3) mg/dL AST (14-36) U/L ALT (4-34) U/L Alkaline Phosphatase (38-126) U/L Troponin I (0.000-0.034) ng/mL NT-Pro-B Natriuret Pep pg/mL Total Protein (6.3-8.2) g/dL Albumin (3.5-5.0) g/dL Coronavirus (PCR) Detected A (Not Detectd) Critical Care Time Critical Care Time: Yes Total Critical Care Time: 35 Disposition Clinical Impression: Acute exacerbation of chronic obstructive pulmonary disease (COPD), Pneumonia, COVID-19 Disposition: ADMITTED IP TO THIS [facility] Condition: Serious Is patient prescribed a controlled substance at d/c from ED?: No Referrals: Phoenix Gutiérrez MD [Primary Care Provider] - 1-2 days Decision to Admit Reason: Admit from EC Decision Date: 04/27/21 Decision Time: 11:37
[2021-04-27] MEDS ORDERED: REMDESIVIR 200 MG in SODIUM CHLORIDE 0.9% 250 ML IVPB ONE (12:00)
[2021-04-27] MEDS: FUROSEMIDE 20 MG TAB PO SCH ×2 (12:13→19:52)
--- NOTE | 2021-04-27 15:30 | P.CNPUL ---
History of Present Illness Consult date: 04/27/21 Requesting physician: Phoenix Gutiérrez Reason for consult: pneumonia Chief complaint: Shortness of breath History of present illness: This is an 89-year-old female with history of moderate severe COPD, chronic diastolic congestive heart failure, chronic hypoxic respiratory failure secondary to COPD, patient is prednisone dependent, patient is COVID-19 vaccinated, presented to the ER this morning with mostly one-day history of increased shortness of breath. Paramedics found the patient hypoxic and O2 saturation in the 60s, placed on CPAP, brought into the ER, chest x-ray showed minimal bibasilar infiltrates, patient had a positive rapid tests for COVID-19 infection, placed on BiPAP initially 100% with 06/08, and I cut down to 32%, evaluated the patient in the ER, and I recommended that the patient get started on remdesivir, continue BiPAP, continue bronchodilators, IV Solu-Medrol, and the COVID-19 cocktail. Patient was noted to have shortness of breath, on BiPAP. On physical examination she had crackles and wheezes bilaterally. CBC showed WBC count of 13.1 hemoglobin of 15.3. Electrolytes were normal except for slightly elevated potassium of 5.6. BNP level was 5130, inflammatory markers were not done in the ER Review of Systems Constitutional: Denies chills, Denies fever Eyes: denies blurred vision, denies pain Ears, nose, mouth and throat: Denies headache, Denies sore throat Cardiovascular: Denies chest pain or palpitation. She does have chronic dyspnea on exertion Respiratory: As noted in HPI Gastrointestinal: Denies abdominal pain, Denies diarrhea, Denies nausea, Denies vomiting Genitourinary: Denies dysuria, Denies hematuria Musculoskeletal: Denies myalgias Integumentary: Denies pruritus, Denies rash Neurological: Denies numbness, Denies weakness Psychiatric: Denies anxiety, Denies depression Endocrine: Denies fatigue, Denies weight change Past Medical History Past Medical History: Atrial Fibrillation, Cancer, Heart Failure, COPD, GERD/Reflux, Hyperlipidemia, Hypertension, Osteoarthritis (OA) Additional Past Medical History / Comment(s): skin cancer on scalp, macular degeneration History of Any Multi-Drug Resistant Organisms: None Reported Past Surgical History: Hernia Repair, Pacemaker, Tonsillectomy Additional Past Surgical History / Comment(s): skin cancer removed from scalp, andrew cataracts Past Anesthesia/Blood Transfusion Reactions: No Reported Reaction Type of Cardiac Device: Permanent Pacemaker Device Placement Date:: 2017 Past Psychological History: No Psychological Hx Reported Smoking Status: Former smoker Past Alcohol Use History: Occasional Past Drug Use History: None Reported - Past Family History Father Family Medical History: Coronary Artery Disease (CAD) Additional Family Medical History / Comment(s): Father at age 91 with history of heart disease. Mother Family Medical History: Cancer Additional Family Medical History / Comment(s): Mother at age 87 from pancreatic cancer. Brother(s) Additional Family Medical History / Comment(s): Patient has 1 brother that at age 93 from liver cancer. Sister(s) Additional Family Medical History / Comment(s): Patient has 2 sisters with no major medical problems. Daughter(s) Additional Family Medical History / Comment(s): Patient has a total of 4 children, 3 daughters and 1 son. One daughter at a young age and a motor vehicle accident. Medications and Allergies Home Medications Medication Instructions Recorded Confirmed Type Apixaban [Eliquis] 2.5 mg PO BID tablet 08/11/17 04/27/21 Rx Famotidine [Pepcid] 20 mg PO AC-BID 10/23/17 04/27/21 History Potassium Chloride [Klor-Con 10 ER] 10 meq PO BID-W/MEALS 10/23/17 04/27/21 History Albuterol Inhaler [Ventolin Hfa 1 - 2 puff INHALATION RT-QID PRN 06/16/20 04/27/21 History Inhaler] Atorvastatin [Lipitor] 20 mg PO HS 06/16/20 04/27/21 History Digoxin [Digitek] 62.5 mcg PO DIRECTED 06/16/20 02/13/21 History Isosorbide Mononitrate ER [Imdur] 15 mg PO DAILY 06/16/20 04/27/21 History Omeprazole 20 mg PO DAILY 06/16/20 04/27/21 History Risedronate Sodium [Risedronate 35 mg PO MO 06/16/20 04/27/[address]] Calcium Carbonate [Calcium] 600 mg PO W/LUNCH 01/21/21 04/27/21 History Cyanocobalamin (Vitamin B-12) 1,000 mcg PO W/LUNCH 01/21/21 04/27/21 History [Vitamin B-12] Dapagliflozin Propanediol [Farxiga] 5 mg PO DAILY 01/21/21 04/27/21 History Ipratropium-Albuterol Nebulize 3 ml INHALATION RT-QID 01/21/21 04/27/21 History [Duoneb 0.5 mg-3 mg/3 ml Soln] Losartan [Cozaar] 25 mg PO DAILY 01/21/21 04/27/21 History Magnesium Oxide [Mag-Ox] 400 mg PO W/LUNCH 01/21/21 04/27/21 History Melatonin 5 mg PO HS 01/21/21 04/27/21 History metFORMIN HCL [Glucophage] 1,000 mg PO W/SUPPER 01/21/21 04/27/21 History Budesonide-Formot 160-4.5 Mcg 2 puff INHALATION RT-BID #1 puff 01/24/21 04/27/21 Rx [Symbicort 160-4.5 Mcg Inhaler] Diltiazem Cd [Cardizem CD] 240 mg PO HS #90 cap.er.24h 01/24/21 04/27/21 Rx Metoprolol Tartrate [Lopressor] 100 mg PO BID #180 tab 01/24/21 04/27/21 Rx Furosemide [Lasix] 20 mg PO BID@0800,1200 02/13/21 04/27/21 History predniSONE 5 - 10 mg PO DIRECTED 02/13/21 02/13/21 History Budesonide [Pulmicort] 1 mg INHALATION DIRECTED 04/27/21 History Allergies Allergy/AdvReac Type Severity Reaction Status Date / Time Sulfa (Sulfonamide Allergy Unknown Verified 04/27/21 14:04 Antibiotics) Childhood shellfish derived [Shellfish] AdvReac Nausea & Verified 04/27/21 14:04 Vomiting & Diarrhea Physical Exam Vitals: Vital Signs Temp Pulse Resp BP Pulse Ox 04/27/21 11:44 92 18 106/55 95 04/27/21 10:54 87 04/27/21 10:31 89 34 H 139/87 100 04/27/21 10:23 84 04/27/21 10:03 98.9 F 87 36 H 169/98 92 L Intake and Output 04/27/21 04/27/21 04/27/21 06:59 14:59 22:59 Other: Weight 77.111 kg GENERAL EXAM: Revealed 89-year-old female on BiPAP, noted to be short of breath, unable to speak of. Her. HEAD: Normocephalic/atraumatic. HEENT: PERRLA, EOMI, nonicteric, no masses, no JVD. CHEST: No chest wall deformity. Symmetrical expansion. LUNGS: Crackles and rhonchi and wheezes noted bilaterally CVS: Irregular irregular rhythm, 2/6 systolic murmur thought the precordium. ABDOMEN: Soft, nontender. No hepatosplenomegaly, normal bowel sounds, no guarding or rigidity. EXTREMITIES: No clubbing, no edema, no cyanosis, 2+ pulses and upper and lower extremities. MUSCULOSKELETAL: Muscle strength and tone normal. SKIN: No rashes CENTRAL NERVOUS SYSTEM: Alert and oriented 3 no gross focal deficits. PSYCHIATRIC: Normal mood, affect and normal mental status examination. Results - Laboratory Findings CBC and BMP: 04/27/21 10:14 04/27/21 10:14 PT/INR, D-dimer PT 10.8 sec (9.0-12.0) 04/27/21 10:14 INR 1.0 (<1.2) 04/27/21 10:14 Abnormal lab findings: Abnormal Labs 04/27/21 04/27/21 04/27/21 10:14 10:14 10:14 WBC 13.1 H Hct 49.4 H Neutrophils # 10.4 H Sodium 133 L Potassium 5.6 H Chloride 95 L BUN 25 H Glucose 170 H Plasma Lactic Acid Lion 2.1 H* Magnesium 2.5 H AST 45 H ALT 37 H Coronavirus (PCR) 04/27/21 10:26 WBC Hct Neutrophils # Sodium Potassium Chloride BUN Glucose Plasma Lactic Acid Lion Magnesium AST ALT Coronavirus (PCR) Detected A - Diagnostic Findings Chest x-ray: image reviewed (As noted in HPI) Assessment and Plan Assessment: Impression: Acute on chronic hypoxic respiratory failure Acute COVID-19 pneumonia Acute on chronic diastolic congestive heart failure ejection fraction of 55%. Acute exacerbation of COPD triggered by COVID-19 pneumonia, patient has advanced COPD FEV1 of 39%. 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 Benign essential hypertension History of dual-chamber pacemaker insertion for history of sinus pauses Recommendation: Continue present supportive care measures. Continue BiPAP and transition to nasal cannula as tolerated. Patient is presently within the therapeutic window for remdesivir hence it will be started. Droplet precautions and isolation. Resume bronchodilators and IV steroids. Resume her diuretics/Lasix 40 mg twice a day. Resume her Eliquis. COVID-19 cocktail. We'll continue to follow. Considering the patient's marginal pulmonary and cardiac status, patient is considered relatively quite ill. And prognosis is guarded. Time with Patient: Greater than 30
[2021-04-27] MEDS: methylPREDNISolone SOD SUCCI 125 MG/2 ML VIAL IV SCH (16:49)
[2021-04-27] MEDS: APIXABAN 2.5 MG TABLET PO SCH (19:52)
[2021-04-27] MEDS: METOPROLOL TARTRATE 50 MG TAB PO SCH (19:52)
[2021-04-27] MEDS: ATORVASTATIN 20 MG TAB PO SCH (19:52)
[2021-04-27] MEDS: DIGOXIN 62.5 MCG TAB PO SCH (20:03)
[2021-04-27] MEDS: MELATONIN 5 MG TABLET PO SCH (20:11)
[2021-04-27] MEDS ORDERED: DILTIAZEM CD 240 MG CAP.ER.24H PO SCH (21:00)
[2021-04-27] MEDS: IPRATROPIUM-ALBUTEROL 3 ML NEB INHALATION SCH (22:36)
[2021-04-28] MEDS: methylPREDNISolone SOD SUCCI 125 MG/2 ML VIAL IV SCH ×5 (00:11→23:31)
--- NOTE | 2021-04-28 04:32 | P.HPIM ---
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 and steroid dependent has been doing fine with her O2 and Nebulized treatment at home till recently where she found to be more short of breath with increased coughing despite using her Updraft treatment, so she came to the office on Tuesday with increased shortness breath associated with increased coughing she was found to be in atrial fibrillation with rapid ventricular response 12-lead EKG was done in the office and that showed a ventricular response of 109 patient was instructed to continue with current treatment plan, and if she is not getting better to go to the emergency department for evaluation, patient stated that she was doing fine up until today in the morning when she woke up in the morning and she developed to have a significant short ness breath associated with increased coughing she could not catch her breath eventually she ended up calling 911 she was found to be severely hypoxemic with oxygen in the low 70s patient was transported to the emergency department at [facility] she was tested positive for COVID-19 and she was placed immediately on BiPAP with an IPAP of 12 and EPAP of 6 patient was started on Solu-Medrol 60 mg IV push every 6 hours around the clock she was placed on Pulmicort 1 mg nebulization twice every day as well as DuoNeb 3 mg nebulization 4 times every day she was seen in consultation by Dr. Plasencia who recommended to start the patient on Remdesivir , patient will be admitted to the hospital for evaluation and treatment of COVID-19 pneumonia. REVIEW OF SYSTEMS Constitutional: positive for fever, no chills, no night sweats. No weight change. Reports weakness, Reports fatigue no lethargy. No daytime sleepiness. HEENT: No headache. No blurred vision or double vision, no loss of vision. No loss of Hearing, no ringing in the ears, no dizziness. No nasal drainage or congestion. No epistaxis. No sore throat, no loss of taste Lungs: Reports shortness of breath, Reports cough, positive for sputum production. Reports wheezing. Cardiovascular: No chest pain, mild lower extremity edema. positive for palpitations. No paroxysmal nocturnal dyspnea. No orthopnea. No lightheadedness or dizziness. No syncopal episodes. Abdominal: No abdominal pain. No nausea, vomiting. No diarrhea. No constipation. No bloody or tarry stools.. No loss of appetite. Genitourinary: No dysuria, increased frequency, urgency. No urinary retention. Musculoskeletal: No myalgias. positive for muscle weakness, no gait dysfunction, no frequent falls. No back pain. No neck pain. Integumentary: No wounds, no lesions. No rash or pruritus. No unusual bruising. No change in hair or nails. Neurologic: No aphasia. No facial droop. No change in mentation. No head injury. No headache. No paralysis. No paresthesia. Psychiatric: No depression. No anxiety. No mood swings. Endocrine: No abnormal blood sugars. MEDICAL HISTORY Hypertension, hypertensive cardiovascular disease Hyperlipidemia Paroxysmal atrial fibrillation Moderate to severe COPD O2 dependence with chronic hypoxic respiratory failure Macular degeneration Gastroesophageal reflux disease Generalized osteoarthritis steroid -induced osteoporosis. chronic diastolic heart failure. Corepulmonale. SURGICAL HISTORY Pacemaker implantation in 2018 Tonsillectomy Hernia repair Removal of skin cancer Bilateral cataract removal and intraocular lens implants SOCIAL HISTORY Patient states that she was a smoker less than a pack a day for 20-30 years and quit 10 years ago. She denies any illicit drug use or alcohol use. She cu rrently lives at home alone. FAMILY HISTORY Father at age 91 with history of heart disease. Mother at age 87 from pancreatic cancer. Patient has 1 brother that at age 93 from liver cancer. Patient has 2 sisters with no major medical problems. Patient has a total of 4 children, 3 daughters and 1 son. One daughter at a young age and a motor vehicle accident. PHYSICAL EXAMINATION Gen: This is an 89-year-old female, lying down in bed in acute distress currently on BIPAP. HEENT: Head is atraumatic, normocephalic. Pupils equal, round. Sclerae is anicteric, mucous membranes of the mouth are somewhat dry. NECK: Supple. No JVD. No lymphadenopathy. No thyromegaly, decreased carotid upstrokes bilaterally. Chest: decrease breath sounds at the bases with few ronchi , minimal expiratory wheezes no chest wall tenderness minimal intercostal retractions. Heart: first heart sound is depressed second heart sound is normal there FLORY 2/6 located at the left sternal border, irregularly irregular due to atrial fibrillation. ABDOMEN: Soft, nontender, nondistended, positive bowel sounds, no hepatosplenomegaly. EXTREMITIES: Trace pedal edema. No calf tenderness. Dorsalis pedis +1 bilaterally. NEUROLOGICAL: Patient is awake, alert and oriented x3. Cranial nerves 2 through 12 are grossly intact muscle christopher 4 out of 5 in upper and lower extremities bilaterally., ASSESSMENT AND PLAN 1. Acute hypoxemic respiratory failure due to COVID-19 pneumonia and acute exacerbation of COPD . Continue droplet and contact precautions with eye protection, continue patient on BiPAP with this current Setting, continue patient on Solu-Medrol 60 mg IVP every 6 hours, continue Rocephin 1 g IV piggyback every 24 hours, start the patient on Remdesevir 100 mg IVPB daily , already received a loading dose of 200 mg IVPB X 1 in the ER we will monitor LFTs. 2. Atrial fibrillation, paroxysmal. Patient currently in A. fib. Cardiology consult. Continue Digoxin 125 mcg orally daily, Cardizem CD 240 mg orally daily, Metoprolol 100 mg orally bid and Eliquis 2.5 mg orally bid. 3. Bilateral pneumonia suggestive of Covid pneumonia. Continue treatment as in paragraph #1. 4. Hypertension and hypertensive cardiovascular disease. Continue Losartn 25 mg orally daily, Metoprolol 100 mg orally bid. 5. Hyperlipidemia. Continue Lipitor 20 mg orally daily. 6. Chronic diastolic heart failure. we will continue with Lasix 20 mg orally bid, Losartan 25 mg orally daily and Metoprolol 100 mg orally bid and Furosemide 20 mg orally bid. 7. 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 we will continue with above treatment. 8. GERD. we will continue with Protonix 40 mg orally daily and Pepcid 20 mg po bid 9. CAD. Continue with Metoprolol 100 mg orally bid, Lipitor 20 mg orally daily and Imdur 15 mg orally daily. 10. Diabetes mellitus type 2. we will continue with Metformin 1000 mg orally with supper and Farxiga 5 mg orally daily, we will start sliding scale insulin. 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 we will hold off Residronate. 12. DVT prophylaxis. Continue eliquis. 2.5 mg orally bid. 13. GI Prophylaxis. we will continue with protonix 40 mg orally daily and pepcid 20 mg orally bid Patient will be admitted to the hospital for a minimum of 2 night stay. DISCHARGE PLAN Home with home care most likely. Past Medical History Past Medical History: Atrial Fibrillation, Cancer, Heart Failure, COPD, GERD/Reflux, Hyperlipidemia, Hypertension, Osteoarthritis (OA) Additional Past Medical History / Comment(s): skin cancer on scalp, macular degeneration History of Any Multi-Drug Resistant Organisms: None Reported Past Surgical History: Hernia Repair, Pacemaker, Tonsillectomy Additional Past Surgical History / Comment(s): skin cancer removed from scalp, andrew cataracts Past Anesthesia/Blood Transfusion Reactions: No Reported Reaction Type of Cardiac Device: Permanent Pacemaker Device Placement Date:: 2017 Past Psychological History: No Psychological Hx Reported Smoking Status: Former smoker Past Alcohol Use History: Occasional Past Drug Use History: None Reported - Past Family History Father Family Medical History: Coronary Artery Disease (CAD) Additional Family Medical History / Comment(s): Father at age 91 with history of heart disease. Mother Family Medical History: Cancer Additional Family Medical History / Comment(s): Mother at age 87 from pancreatic cancer. Brother(s) Additional Family Medical History / Comment(s): Patient has 1 brother that at age 93 from liver cancer. Sister(s) Additional Family Medical History / Comment(s): Patient has 2 sisters with no major medical problems. Daughter(s) Additional Family Medical History / Comment(s): Patient has a total of 4 children, 3 daughters and 1 son. One daughter at a young age and a motor vehicle accident. Medications and Allergies Home Medications Medication Instructions Recorded Confirmed Type Apixaban [Eliquis] 2.5 mg PO BID tablet 08/11/17 04/27/21 Rx Famotidine [Pepcid] 20 mg PO AC-BID 10/23/17 04/27/21 History Potassium Chloride [Klor-Con 10 ER] 10 meq PO BID-W/MEALS 10/23/17 04/27/21 History Albuterol Inhaler [Ventolin Hfa 1 - 2 puff INHALATION RT-QID PRN 06/16/20 04/27/21 History Inhaler] Atorvastatin [Lipitor] 20 mg PO HS 06/16/20 04/27/21 History Digoxin [Digitek] 62.5 mcg PO MOTUWETHFRSA 06/16/20 04/27/21 History Isosorbide Mononitrate ER [Imdur] 15 mg PO DAILY 06/16/20 04/27/21 History Omeprazole 20 mg PO DAILY 06/16/20 04/27/21 History Risedronate Sodium [Risedronate 35 mg PO MO 06/16/20 04/27/[address]] Calcium Carbonate [Calcium] 600 mg PO W/LUNCH 01/21/21 04/27/21 History Cyanocobalamin (Vitamin B-12) 1,000 mcg PO W/LUNCH 01/21/21 04/27/21 History [Vitamin B-12] Dapagliflozin Propanediol [Farxiga] 5 mg PO DAILY 01/21/21 04/27/21 History Ipratropium-Albuterol Nebulize 3 ml INHALATION RT-QID 01/21/21 04/27/21 History [Duoneb 0.5 mg-3 mg/3 ml Soln] Losartan [Cozaar] 25 mg PO DAILY 01/21/21 04/27/21 History Magnesium Oxide [Mag-Ox] 400 mg PO W/LUNCH 01/21/21 04/27/21 History Melatonin 5 mg PO HS 01/21/21 04/27/21 History metFORMIN HCL [Glucophage] 1,000 mg PO W/SUPPER 01/21/21 04/27/21 History Budesonide-Formot 160-4.5 Mcg 2 puff INHALATION RT-BID #1 puff 01/24/21 04/27/21 Rx [Symbicort 160-4.5 Mcg Inhaler] Diltiazem Cd [Cardizem CD] 240 mg PO HS #90 cap.er.24h 01/24/21 04/27/21 Rx Metoprolol Tartrate [Lopressor] 100 mg PO BID #180 tab 01/24/21 04/27/21 Rx Furosemide [Lasix] 20 mg PO BID@0800,1200 02/13/21 04/27/21 History predniSONE 10 mg PO DAILY 02/13/21 04/27/21 History Budesonide [Pulmicort] 1 mg INHALATION RT-BID PRN 04/27/21 04/27/21 History Allergies Allergy/AdvReac Type Severity Reaction Status Date / Time Sulfa (Sulfonamide Allergy Unknown Verified 04/27/21 14:04 Antibiotics) Childhood shellfish derived [Shellfish] AdvReac Nausea & Verified 04/27/21 14:04 Vomiting & Diarrhea Physical Exam Vitals: Vital Signs Temp Pulse Resp BP Pulse Ox 04/27/21 11:44 92 18 106/55 95 04/27/21 10:54 87 04/27/21 10:31 89 34 H 139/87 100 04/27/21 10:23 84 04/27/21 10:03 98.9 F 87 36 H 169/98 92 L Intake and Output 04/26/21 04/27/21 04/27/21 22:59 06:59 14:59 Other: Weight 77.111 kg Results CBC & Chem 7: 04/27/21 10:14 04/27/21 10:14 Labs: Abnormal Lab Results - Last 24 Hours (Table) 04/27/21 04/27/21 04/27/21 Range/Units 10:14 10:14 10:14 WBC 13.1 H (3.8-10.6) k/uL Hct 49.4 H (34.0-46.0) % Neutrophils # 10.4 H (1.3-7.7) k/uL Sodium 133 L (137-145) mmol/L Potassium 5.6 H (3.5-5.1) mmol/L Chloride 95 L (98-107) mmol/L BUN 25 H (7-17) mg/dL Glucose 170 H (74-99) mg/dL Plasma Lactic Acid Lion 2.1 H* (0.7-2.0) mmol/L Magnesium 2.5 H (1.6-2.3) mg/dL AST 45 H (14-36) U/L ALT 37 H (4-34) U/L Coronavirus (PCR) (Not Detectd) 04/27/21 Range/Units 10:26 WBC (3.8-10.6) k/uL Hct (34.0-46.0) % Neutrophils # (1.3-7.7) k/uL Sodium (137-145) mmol/L Potassium (3.5-5.1) mmol/L Chloride (98-107) mmol/L BUN (7-17) mg/dL Glucose (74-99) mg/dL Plasma Lactic Acid Lion (0.7-2.0) mmol/L Magnesium (1.6-2.3) mg/dL AST (14-36) U/L ALT (4-34) U/L Coronavirus (PCR) Detected A (Not Detectd)
[2021-04-28 06:07] LABS: Glucose,Whole Blood 173 mg/dL (75-99)
[2021-04-28] MEDS: PANTOPRAZOLE 40 MG TABLET PO SCH (06:10)
[2021-04-28] MEDS: INSULIN ASPART (NovoLOG) 100 UNIT/ML VIAL SQ SCH ×4 (06:10→21:15)
[2021-04-28] MEDS: POTASSIUM CHLORIDE ER 10 MEQ TAB.ER.PRT PO SCH ×2 (06:11→16:38)
[2021-04-28 07:18] LABS: Basophils % (A) 0 %; Eosinophils % (A) 0 %; HCT 40.5 % (34.0-46.0); HGB 13.4 gm/dL (11.4-16.0); Lymphocytes # (A) 0.5 k/uL (1.0-4.8); Lymphocytes % (A) 7 %; MCH 30.5 pg (25.0-35.0); MCHC 33.1 g/dL (31.0-37.0); Mean Platelet Volume 7.3; Monocytes # (A) 0.2 k/uL (0-1.0); Monocytes % (A) 3 %; Neutrophils # (A) 6.4 k/uL (1.3-7.7); Neutrophils % (A) 90 %; Platelet Count 182 k/uL (150-450); RBC 4.41 m/uL (3.80-5.40); RDW 14.7 % (11.5-15.5); WBC 7.1 k/uL (3.8-10.6)
[2021-04-28] MEDS: IPRATROPIUM-ALBUTEROL 3 ML NEB INHALATION SCH (07:27)
[2021-04-28] MEDS ORDERED: FAMOTIDINE 20 MG TAB PO SCH (07:30)
[2021-04-28 07:47] LABS: Albumin 3.4 g/dL (3.5-5.0); Calcium 8.3 mg/dL (8.4-10.2); Magnesium 2.4 mg/dL (1.6-2.3); Potassium 4.5 mmol/L (3.5-5.1); Total Bilirubin 0.6 mg/dL (0.2-1.3); Total Protein 5.5 g/dL (6.3-8.2)
[2021-04-28 08:21] LABS: C Reactive Protein 6.5 mg/dL (<1.0)
[2021-04-28] MEDS: METOPROLOL TARTRATE 50 MG TAB PO SCH ×2 (08:47→21:15)
[2021-04-28] MEDS: ZINC SULFATE 220 MG CAP PO SCH (08:47)
[2021-04-28] MEDS: APIXABAN 2.5 MG TABLET PO SCH ×2 (08:48→21:15)
[2021-04-28] MEDS: LOSARTAN 25 MG TAB PO SCH (08:48)
[2021-04-28] MEDS: ASCORBIC ACID 500 MG TAB PO SCH ×2 (08:48→21:15)
[2021-04-28] MEDS: CHOLECALCIFEROL 25 MCG (1000 IU) TABLET PO SCH (08:48)
[2021-04-28] MEDS: ISOSORBIDE MONONITRATE ER 15 MG TAB PO SCH (08:48)
[2021-04-28] MEDS: FUROSEMIDE 20 MG TAB PO SCH ×2 (08:48→11:55)
--- NOTE | 2021-04-28 09:14 | P.CRDCN ---
History of Present Illness History of present illness: HISTORY OF PRESENTING ILLNESS This is a pleasant 89-year-old female past medical history significant for chronic persistent atrial fibrillation (on Eliquis), chronic respiratory failure with hypoxia, COPD, hypertension, sick sinus syndrome status post dual-chamber pacemaker implantation in 2018, former nicotine dependence. She follows in the office with Dr. Pina. We have been asked to see in consultation for atrial fibrillation. Patient presents emergency department with complaints of shortness of breath. EMS was called and patient was found to be hypoxic with oxygen saturations in the 60s, placed on CPAP and proximal emergency department. Found to be COVID-19 positive. On admission the emergency room patient was placed on BiPAP, started on room due to severe, bronchodilators, IV Solu-Medrol. Patient seen and examined at bedside, states her breathing has improved, she is able to sit at the edge of the bed without feeling short of breath. Continues to be short of breath with walking. DIAGNOSTICS EKG reveals atrial fibrillation, heart rate 87 Most recent echocardiogram January 2021 revealed EF 55-60%, mild to moderate aortic regurgiation, mild to moderate tricuspid regurgitation, mild aortic stenosis with a peak/mean grading 23 mmHg/60 mmHg, mild to moderate mitral regurgitation, mild to moderate pulmonary hypertension with an RVSP of 42 mmHg Lexiscan stress test in 2019 in office- normal Telemetry tracings indicate atrial fibrillation with heart rates trend in the [id number] Chest xray minimal bibasal infiltrates Laboratory reviewed, troponin negative 1, COVID-19 PCR positive, WBC 15.1, hemoglobin 15.3, platelets 247, sodium 133, potassium 5.6, BUN 25, serum crea tinine 0.9, magnesium 2.5, proBNP 5130 Current home cardiac medications include digoxin 62.5mcg tuesday-tuesday, potassium chloride, Lopressor 100 mg twice a day, losartan 25 mg daily, Imdur 15 mg daily, Lasix 20 mg twice a day, Cardizem 240 mg nightly, Eliquis 2.5 mg twice a day, atorvastatin 20 mg nightly REVIEW OF SYSTEMS At the time of my exam: CONSTITUTIONAL: Denies fever or chills. CARDIOVASCULAR: +shortness of breath Denies chest pain, orthopnea, PND or palpitations. RESPIRATORY: Denies cough. GASTROINTESTINAL: Denies abdominal pain, diarrhea, constipation, nausea or vomiting. MUSCULOSKELETAL: Denies myalgias. NEUROLOGIC: Denies numbness, tingling, headacbe or weakness. ENDOCRINE: Denies fatigue, weight change, polydipsia or polyurina. GENITOURINARY: Denies burning, hematuria or urgency with micturation. HEMATOLOGIC: Denies history of anemia or bleeding. PHYSICAL EXAMINATION Blood pressure 125/67, heart rate 99, afebrile, maintaining oxygen saturation is 97% on 2 L nasal cannula. CONSTITUTIONAL: No apparent distress. HEENT: Head is normocephalic. Pupils are equal, round. Sclerae anicteric. Mucous membranes of the mouth are moist. No JVD. No carotid bruit. CHEST EXAMINATION: Lungs are expiratory wheezing bilaterally to auscultation. No chest wall tenderness is noted on palpation or with deep breathing. HEART EXAMINATION: Regular rate and rhythm. S1, S2 heard. No murmurs, gallops or rub. ABDOMEN: Soft, nontender. Positive bowel sounds. EXTREMITIES: 2+ peripheral pulses, no lower extremity edema and no calf tenderness. NEUROLOGIC EXAMINATION: Patient is awake, alert and oriented x3. ASSESSMENT Acute on chronic hypoxic respiratory failure Covid-19 infection COPD exacerbation Chronic persistent atrial fibrillation Hypertension Sick sinus syndrome status post dual-chamber pacemaker implantation in 2018 Former nicotine dependence PLAN Continue Eliquis BID Continue home cardiac medications Cardizem 240mg daily, Digoxin 62.5mg, and Metoprolol tartrate 100mg BID Continue statin Patient is on Remdesivir per protocol Continue cardiac telemetry Further recommendations based on clinical course Nurse Practitioner note has been reviewed, I agree with a documented findings and plan of care. Patient was seen and examined. Past Medical History Past Medical History: Atrial Fibrillation, Cancer, Heart Failure, COPD, GERD/Reflux, Hyperlipidemia, Hypertension, Osteoarthritis (OA) Additional Past Medical History / Comment(s): skin cancer on scalp, macular degeneration History of Any Multi-Drug Resistant Organisms: None Reported Past Surgical History: Hernia Repair, Pacemaker, Tonsillectomy Additional Past Surgical History / Comment(s): skin cancer removed from scalp, andrew cataracts Past Anesthesia/Blood Transfusion Reactions: No Reported Reaction Type of Cardiac Device: Permanent Pacemaker Device Placement Date:: 2017 Past Psychological History: No Psychological Hx Reported Smoking Status: Former smoker Past Alcohol Use History: Occasional Past Drug Use History: None Reported - Past Family History Father Family Medical History: Coronary Artery Disease (CAD) Additional Family Medical History / Comment(s): Father at age 91 with history of heart disease. Mother Family Medical History: Cancer Additional Family Medical History / Comment(s): Mother at age 87 from pancreatic cancer. Brother(s) Additional Family Medical History / Comment(s): Patient has 1 brother that at age 93 from liver cancer. Sister(s) Additional Family Medical History / Comment(s): Patient has 2 sisters with no major medical problems. Daughter(s) Additional Family Medical History / Comment(s): Patient has a total of 4 children, 3 daughters and 1 son. One daughter at a young age and a motor vehicle accident. Medications and Allergies Home Medications Medication Instructions Recorded Confirmed Type Apixaban [Eliquis] 2.5 mg PO BID tablet 08/11/17 04/27/21 Rx Famotidine [Pepcid] 20 mg PO AC-BID 10/23/17 04/27/21 History Potassium Chloride [Klor-Con 10 ER] 10 meq PO BID-W/MEALS 10/23/17 04/27/21 History Albuterol Inhaler [Ventolin Hfa 1 - 2 puff INHALATION RT-QID PRN 06/16/20 04/27/21 History Inhaler] Atorvastatin [Lipitor] 20 mg PO HS 06/16/20 04/27/21 History Digoxin [Digitek] 62.5 mcg PO [id number] 06/16/20 04/27/21 History Isosorbide Mononitrate ER [Imdur] 15 mg PO DAILY 06/16/20 04/27/21 History Omeprazole 20 mg PO DAILY 06/16/20 04/27/21 History Risedronate Sodium [Risedronate 35 mg PO MO 06/16/20 04/27/[address]] Calcium Carbonate [Calcium] 600 mg PO W/LUNCH 01/21/21 04/27/21 History Cyanocobalamin (Vitamin B-12) 1,000 mcg PO W/LUNCH 01/21/21 04/27/21 History [Vitamin B-12] Dapagliflozin Propanediol [Farxiga] 5 mg PO DAILY 01/21/21 04/27/21 History Ipratropium-Albuterol Nebulize 3 ml INHALATION RT-QID 01/21/21 04/27/21 History [Duoneb 0.5 mg-3 mg/3 ml Soln] Losartan [Cozaar] 25 mg PO DAILY 01/21/21 04/27/21 History Magnesium Oxide [Mag-Ox] 400 mg PO W/LUNCH 01/21/21 04/27/21 History Melatonin 5 mg PO HS 01/21/21 04/27/21 History metFORMIN HCL [Glucophage] 1,000 mg PO W/SUPPER 01/21/21 04/27/21 History Budesonide-Formot 160-4.5 Mcg 2 puff INHALATION RT-BID #1 puff 01/24/21 04/27/21 Rx [Symbicort 160-4.5 Mcg Inhaler] Diltiazem Cd [Cardizem CD] 240 mg PO HS #90 cap.er.24h 01/24/21 04/27/21 Rx Metoprolol Tartrate [Lopressor] 100 mg PO BID #180 tab 01/24/21 04/27/21 Rx Furosemide [Lasix] 20 mg PO BID@0800,1200 02/13/21 04/27/21 History predniSONE 10 mg PO DAILY 02/13/21 04/27/21 History Budesonide [Pulmicort] 1 mg INHALATION RT-BID PRN 04/27/21 04/27/21 History Allergies Allergy/AdvReac Type Severity Reaction Status Date / Time Sulfa (Sulfonamide Allergy Unknown Verified 04/27/21 14:04 Antibiotics) Childhood shellfish derived [Shellfish] AdvReac Nausea & Verified 04/27/21 14:04 Vomiting & Diarrhea Physical Exam Vitals: Vital Signs Temp Pulse Pulse Resp BP BP Pulse Ox 04/28/21 04:00 99 20 125/67 97 04/28/21 02:00 18 04/28/21 00:00 97.4 F L 99 18 100/59 99 04/27/21 21:00 98.1 F 110 H 20 143/86 100 04/27/21 19:56 97.9 F 112 H 20 118/65 100 04/27/21 17:38 116 H 18 108/63 98 04/27/21 16:52 96 20 97/56 98 04/27/21 15:37 103 H 18 124/77 98 04/27/21 11:44 92 18 106/55 95 04/27/21 10:54 87 04/27/21 10:31 89 34 H 139/87 100 04/27/21 10:23 84 04/27/21 10:03 98.9 F 87 36 H 169/98 92 L Intake and Output 04/27/21 04/27/21 04/28/21 14:59 22:59 06:59 Other: Voiding Method Bedside Commode # Voids 1 3 Weight 77.111 kg 77.111 kg 70 kg Results 04/28/21 06:44 04/28/21 06:44 Cardiac Enzymes 04/27/21 04/27/21 Range/Units 10:14 10:14 AST 45 H (14-36) U/L Troponin I <0.012 (0.000-0.034) ng/mL Coagulation 04/27/21 Range/Units 10:14 PT 10.8 (9.0-12.0) sec APTT 24.2 (22.0-30.0) sec CBC 04/27/21 Range/Units 10:14 WBC 13.1 H (3.8-10.6) k/uL RBC 5.20 (3.80-5.40) m/uL Hgb 15.3 (11.4-16.0) gm/dL Hct 49.4 H (34.0-46.0) % Plt Count 247 (150-450) k/uL Comprehensive Metabolic Panel 04/27/21 Range/Units 10:14 Sodium 133 L (137-145) mmol/L Potassium 5.6 H (3.5-5.1) mmol/L Chloride 95 L (98-107) mmol/L Carbon Dioxide 29 (22-30) mmol/L BUN 25 H (7-17) mg/dL Creatinine 0.99 (0.52-1.04) mg/dL Glucose 170 H (74-99) mg/dL Calcium 9.0 (8.4-10.2) mg/dL AST 45 H (14-36) U/L ALT 37 H (4-34) U/L Alkaline Phosphatase 61 (38-126) U/L Total Protein 6.7 (6.3-8.2) g/dL Albumin 4.3 (3.5-5.0) g/dL Current Medications Generic Name Dose Route Start Last Admin Trade Name Freq PRN Reason Stop Dose Admin Acetaminophen 650 mg 04/27/21 11:32 Acetaminophen Tab 325 Mg Tab PO Q6HR PRN Mild Pain or Fever > 100.5 Albuterol/Ipratropium 3 ml 04/27/21 20:00 04/27/21 22:36 Ipratropium-Albuterol 3 Ml Neb INHALATION Not Given RT-QID [facility] Apixaban 2.5 mg 04/27/21 21:00 04/27/21 19:52 Apixaban 2.5 Mg Tablet PO 05/03/21 11:33 2.5 mg BID RODRICK Administration Protocol Ascorbic Acid 500 mg 04/28/21 09:00 Ascorbic Acid 500 Mg Tab PO BID RODRICK Atorvastatin Calcium 20 mg 04/27/21 21:00 04/27/21 19:52 Atorvastatin 20 Mg Tab PO 20 mg HS [facility] Administration Calcium Carbonate/Glycine 500 mg 04/28/21 12:30 Calcium Carbonate 500 Mg Chewable PO W/LUNCH [facility] Cholecalciferol 50 mcg 04/28/21 09:00 Cholecalciferol 25 Mcg (1000 Iu) Tablet PO DAILY [facility] Cyanocobalamin 1,000 mcg 04/28/21 12:30 Cyanocobalamin 500 Mcg Tab PO W/LUNCH [facility] Digoxin 62.5 mcg 04/27/21 18:30 04/27/21 20:03 Digoxin 62.5 Mcg Tab PO 62.5 mcg [id number] [facility] Administration Diltiazem HCl 240 mg 04/27/21 21:00 04/27/21 20:57 Diltiazem Cd 240 Mg Cap.Er.24h PO 240 mg HS [facility] Administration Famotidine 20 mg 04/28/21 07:30 04/28/21 06:11 Famotidine 20 Mg Tab PO 20 mg AC-BID [facility] Administration Furosemide 20 mg 04/28/21 08:00 Furosemide 20 Mg Tab PO BID@0800,1200 [facility] Remdesivir 100 mg/ Sodium 250 mls @ 250 mls/hr 04/28/21 12:00 Chloride IVPB 05/01/21 12:59 DAILY@1200 [facility] Insulin Aspart 0 unit 04/28/21 07:30 04/28/21 06:10 Insulin Aspart (Novolog) 100 Unit/Ml Vial SQ 4 unit ACHS [facility] Administration Protocol Isosorbide Mononitrate 15 mg 04/28/21 09:00 Isosorbide Mononitrate Er 15 Mg Tab PO DAILY [facility] Losartan Potassium 25 mg 04/28/21 09:00 Losartan 25 Mg Tab PO DAILY [facility] Magnesium Oxide 400 mg 04/28/21 12:30 Magnesium Oxide 400 Mg Tab PO W/LUNCH [facility] Melatonin 5 mg 04/27/21 21:00 04/27/21 20:11 Melatonin 5 Mg Tablet PO 5 mg HS [facility] Administration Metformin HCl 1,000 mg 04/28/21 17:30 Metformin 500 Mg Tab PO W/SUPPER [facility] Methylprednisolone Sodium Succinate 60 mg 04/27/21 17:00 04/28/21 06:10 Methylprednisolone Sod Succi 125 Mg/2 Ml Vial IV 60 mg Q6H [facility] Administration Metoprolol Tartrate 100 mg 04/27/21 21:00 04/27/21 19:52 Metoprolol Tartrate 50 Mg Tab PO 100 mg BID [facility] Administration Naloxone HCl 0.2 mg 04/27/21 11:32 Naloxone 0.4 Mg/Ml 1 Ml Vial IV Q2M PRN Opioid Reversal Non-Formulary Medication 5 mg 04/28/21 09:00 Dapagliflozin Propanediol [Farxiga] PO DAILY [facility] Pantoprazole Sodium 40 mg 04/28/21 07:30 04/28/21 06:10 Pantoprazole 40 Mg Tablet PO 40 mg DAILY@0730 [facility] Administration Potassium Chloride 10 meq 04/28/21 07:30 04/28/21 06:11 Potassium Chloride Er 10 Meq Tab.Er.Prt PO 10 meq BID-W/MEALS [facility]RICK Administration Zinc Sulfate 220 mg 04/28/21 09:00 Zinc Sulfate 220 Mg Cap PO DAILY [facility] Intake and Output 04/27/21 04/27/21 04/28/21 14:59 22:59 06:59 Other: Voiding Method Bedside Commode # Voids 1 3 Weight 77.111 kg 77.111 kg 70 kg Patient Weight 04/28/21 06:59 Weight 70 kg 04/27/21 10:14 04/27/21 10:14
[2021-04-28] MEDS: TIOTROPIUM 2.5 MCG INHALER INHALATION SCH (11:27)
[2021-04-28] MEDS: ALBUTEROL HFA INHALER INHALATION SCH ×4 (11:27→21:07)
[2021-04-28] MEDS: NON FORMULARY DRUG (Dapagliflozin Propanediol [Farxiga] 5 MG Tablet) PO SCH (11:36)
[2021-04-28 11:44] LABS: Glucose,Whole Blood 184 mg/dL (75-99)
[2021-04-28] MEDS: REMDESIVIR 100 MG in SODIUM CHLORIDE 0.9% 250 ML IVPB SCH (11:53)
[2021-04-28] MEDS: MAGNESIUM OXIDE 400 MG TAB PO SCH (11:54)
[2021-04-28] MEDS: CYANOCOBALAMIN 500 MCG TAB PO SCH (11:55)
[2021-04-28] MEDS: CALCIUM CARBONATE 500 MG CHEWABLE PO SCH (11:55)
--- NOTE | 2021-04-28 15:27 | P.PN ---
Subjective Progress Note Date: 04/28/21 Principal diagnosis: Acute on chronic hypoxic respiratory failure This is an 89-year-old female with history of moderate severe COPD, chronic diastolic congestive heart failure, chronic hypoxic respiratory failure secondary to COPD, patient is prednisone dependent, patient is COVID-19 vaccinated, presented to the ER this morning with mostly one-day history of increased shortness of breath. Paramedics found the patient hypoxic and O2 saturation in the 60s, placed on CPAP, brought into the ER, chest x-ray showed minimal bibasilar infiltrates, patient had a positive rapid tests for COVID-19 infection, placed on BiPAP initially 100% with 06/08, and I cut down to 32%, evaluated the patient in the ER, and I recommended that the patient get started on remdesivir, continue BiPAP, continue bronchodilators, IV Solu-Medrol, and the COVID-19 cocktail. Patient was noted to have shortness of breath, on BiPAP. On physical examination she had crackles and wheezes bilaterally. CBC showed WBC count of 13.1 hemoglobin of 15.3. Electrolytes were normal except for slightly elevated potassium of 5.6. BNP level was 5130, inflammatory markers were not done in the ER Patient was reevaluated today on 04/28/21, patient is feeling better today, breathing a lot easier. She is now on 2 L nasal cannula, O2 saturations 94%. Patient is resting in bed, relatively asymptomatic except for intermittent cough and minimal wheezing. CBC is relatively normal electrolytes are normal renal profile is normal. LDH is 678 C-reactive protein is 6.5. Objective - Vital Signs Vital signs: Vital Signs Temp 97.9 F 04/28/21 12:02 Pulse 94 04/28/21 12:02 Resp 18 04/28/21 13:48 BP 117/80 04/28/21 12:02 Pulse Ox 94 L 04/28/21 12:02 Intake & Output 04/27/21 04/28/21 04/28/21 18:59 06:59 18:59 Weight 77.111 kg 70 kg Other: Voiding Method Bedside Commode Bedside Commode # Voids 3 2 # Bowel Movements 2 - Exam GENERAL EXAM: Revealed 89-year-old female on 2 L nasal cannula, not in distress. Very pleasant. HEAD: Normocephalic/atraumatic. HEENT: PERRLA, EOMI, nonicteric, no masses, no JVD. CHEST: No chest wall deformity. Symmetrical expansion. LUNGS: Diminished breath sounds at the bases minimal wheezing on forced expiratory maneuver. CVS: Irregular irregular rhythm, 2/6 systolic murmur thought the precordium. ABDOMEN: Soft, nontender. No hepatosplenomegaly, normal bowel sounds, no guarding or rigidity. EXTREMITIES: No clubbing, no edema, no cyanosis, 2+ pulses and upper and lower extremities. MUSCULOSKELETAL: Muscle strength and tone normal. SKIN: No rashes CENTRAL NERVOUS SYSTEM: Alert and oriented 3 no gross focal deficits. PSYCHIATRIC: Normal mood, affect and normal mental status examination. - Labs CBC & Chem 7: 04/28/21 06:44 04/28/21 06:44 Labs: Abnormal Lab Results - Last 24 Hours (Table) 04/28/21 04/28/21 04/28/21 Range/Units 06:04 06:44 06:44 Lymphocytes # 0.5 L (1.0-4.8) k/uL Sodium 135 L (137-145) mmol/L Chloride 96 L (98-107) mmol/L Carbon Dioxide 31 H (22-30) mmol/L BUN 29 H (7-17) mg/dL Glucose 184 H (74-99) mg/dL POC Glucose (mg/dL) 173 H (75-99) mg/dL Calcium 8.3 L (8.4-10.2) mg/dL Magnesium 2.4 H (1.6-2.3) mg/dL ALT 35 H (4-34) U/L Lactate Dehydrogenase 678 H (313-618) U/L C-Reactive Protein 6.5 H (<1.0) mg/dL Total Protein 5.5 L (6.3-8.2) g/dL Albumin 3.4 L (3.5-5.0) g/dL 04/28/21 Range/Units 11:37 Lymphocytes # (1.0-4.8) k/uL Sodium (137-145) mmol/L Chloride (98-107) mmol/L Carbon Dioxide (22-30) mmol/L BUN (7-17) mg/dL Glucose (74-99) mg/dL POC Glucose (mg/dL) 184 H (75-99) mg/dL Calcium (8.4-10.2) mg/dL Magnesium (1.6-2.3) mg/dL ALT (4-34) U/L Lactate Dehydrogenase (313-618) U/L C-Reactive Protein (<1.0) mg/dL Total Protein (6.3-8.2) g/dL Albumin (3.5-5.0) g/dL Microbiology - Last 24 Hours (Table) 04/27/21 11:30 Blood Culture - Preliminary Blood No Growth after 24 hours 04/27/21 11:45 Blood Culture - Preliminary Blood No Growth after 24 hours Assessment and Plan Assessment: Impression: Acute on chronic hypoxic respiratory failure Acute COVID-19 pneumonia Acute on chronic diastolic congestive heart failure ejection fraction of 55%. Acute exacerbation of COPD triggered by COVID-19 pneumonia, patient has advanced COPD FEV1 of 39%. Chronic atrial fibrillation Moderate pulmonary hypertension [id number] smoking history, in remission. Benign essential hypertension History of dual-chamber pacemaker insertion for history of sinus pauses Recommendation: Continue oxygen and titrate accordingly Continue present supportive care measures. Continue remdesivir Droplet precautions and isolation. Continue Solu-Medrol and bronchodilators. Continue Lasix. Continue Eliquis. Continue COVID-19 cocktail. We'll continue to follow. Significant improvement noted in the last 24 hours Time with Patient: Less than 30
[2021-04-28] MEDS: DIGOXIN 62.5 MCG TAB PO SCH (16:38)
[2021-04-28] MEDS: metFORMIN 500 MG TAB PO SCH (16:38)
[2021-04-28 16:50] LABS: Glucose,Whole Blood 216 mg/dL (75-99)
[2021-04-28] MEDS ORDERED: DILTIAZEM DRIP BOLUS FROM BAG 1 MG SOLN IV ONE (17:48)
[2021-04-28] MEDS: DILTIAZEM 125 MG in SODIUM CHLORIDE 0.9% 100 ML IV SCH (18:50)
[2021-04-28 20:02] LABS: Glucose,Whole Blood 201 mg/dL (75-99)
[2021-04-28] MEDS: ATORVASTATIN 20 MG TAB PO SCH (21:15)
[2021-04-28] MEDS: MELATONIN 5 MG TABLET PO SCH (21:15)
[2021-04-29 03:48] LABS: Glucose,Whole Blood 169 mg/dL (75-99)
[2021-04-29] MEDS: DILTIAZEM 125 MG in SODIUM CHLORIDE 0.9% 100 ML IV SCH (04:20)
[2021-04-29 06:06] LABS: Glucose,Whole Blood 167 mg/dL (75-99)
[2021-04-29] MEDS: FAMOTIDINE 20 MG TAB PO SCH (06:40)
[2021-04-29] MEDS: INSULIN ASPART (NovoLOG) 100 UNIT/ML VIAL SQ SCH ×4 (06:40→20:07)
[2021-04-29] MEDS: PANTOPRAZOLE 40 MG TABLET PO SCH (06:40)
[2021-04-29] MEDS: POTASSIUM CHLORIDE ER 10 MEQ TAB.ER.PRT PO SCH ×2 (06:40→17:15)
[2021-04-29] MEDS: methylPREDNISolone SOD SUCCI 125 MG/2 ML VIAL IV SCH (06:40)
[2021-04-29 06:54] LABS: Basophils % (A) 0 %; Eosinophils # (A) 0.1 k/uL (0-0.7); Eosinophils % (A) 1 %; HCT 39.3 % (34.0-46.0); HGB 12.7 gm/dL (11.4-16.0); Lymphocytes # (A) 0.4 k/uL (1.0-4.8); Lymphocytes % (A) 4 %; MCH 30.5 pg (25.0-35.0); MCHC 32.3 g/dL (31.0-37.0); MCV 94.3 fL (80.0-100.0); Mean Platelet Volume 7.2; Monocytes # (A) 0.3 k/uL (0-1.0); Monocytes % (A) 3 %; Neutrophils # (A) 8.2 k/uL (1.3-7.7); Neutrophils % (A) 91 %; Platelet Count 159 k/uL (150-450); RBC 4.17 m/uL (3.80-5.40); RDW 14.1 % (11.5-15.5)
[2021-04-29 07:16] LABS: Albumin 3.1 g/dL (3.5-5.0); Calcium 8.2 mg/dL (8.4-10.2); Potassium 4.2 mmol/L (3.5-5.1); Total Bilirubin 0.5 mg/dL (0.2-1.3); Total Protein 5.1 g/dL (6.3-8.2)
[2021-04-29] MEDS: ALBUTEROL HFA INHALER INHALATION SCH ×4 (08:36→21:06)
[2021-04-29] MEDS: TIOTROPIUM 2.5 MCG INHALER INHALATION SCH (08:36)
[2021-04-29] MEDS: ISOSORBIDE MONONITRATE ER 15 MG TAB PO SCH (08:57)
[2021-04-29] MEDS: ASCORBIC ACID 500 MG TAB PO SCH ×2 (08:57→20:06)
[2021-04-29] MEDS: METOPROLOL TARTRATE 50 MG TAB PO SCH ×2 (08:57→20:06)
[2021-04-29] MEDS: CHOLECALCIFEROL 25 MCG (1000 IU) TABLET PO SCH (08:57)
[2021-04-29] MEDS: APIXABAN 2.5 MG TABLET PO SCH ×2 (08:58→20:07)
[2021-04-29] MEDS: ZINC SULFATE 220 MG CAP PO SCH (08:58)
[2021-04-29] MEDS: NON FORMULARY DRUG (Dapagliflozin Propanediol [Farxiga] 5 MG Tablet) PO SCH (08:58)
[2021-04-29] MEDS: LOSARTAN 25 MG TAB PO SCH (08:58)
[2021-04-29] MEDS: FUROSEMIDE 20 MG TAB PO SCH ×2 (08:58→12:21)
[2021-04-29 11:47] LABS: Glucose,Whole Blood 209 mg/dL (75-99)
[2021-04-29] MEDS: REMDESIVIR 100 MG in SODIUM CHLORIDE 0.9% 250 ML IVPB SCH (12:20)
[2021-04-29] MEDS: CALCIUM CARBONATE 500 MG CHEWABLE PO SCH (12:21)
[2021-04-29] MEDS: MAGNESIUM OXIDE 400 MG TAB PO SCH (12:21)
[2021-04-29] MEDS: DILTIAZEM CD 180 MG CAP.ER.24H PO SCH (12:21)
[2021-04-29] MEDS: CYANOCOBALAMIN 500 MCG TAB PO SCH (12:21)
[2021-04-29] MEDS: predniSONE 20 MG TAB PO SCH (12:21)
--- NOTE | 2021-04-29 12:29 | P.PN ---
Subjective Progress Note Date: 04/29/21 Principal diagnosis: Acute on chronic hypoxic respiratory failure secondary to COPD exacerbation, COVID-19 infection This is an 89-year-old female with history of moderate severe COPD, chronic diastolic congestive heart failure, chronic hypoxic respiratory failure secondary to COPD, patient is prednisone dependent, patient is COVID-19 vaccinated, presented to the ER this morning with mostly one-day history of increased shortness of breath. Paramedics found the patient hypoxic and O2 saturation in the 60s, placed on CPAP, brought into the ER, chest x-ray showed minimal bibasilar infiltrates, patient had a positive rapid tests for COVID-19 infection, placed on BiPAP initially 100% with 06/08, and I cut down to 32%, evaluated the patient in the ER, and I recommended that the patient get started on remdesivir, continue BiPAP, continue bronchodilators, IV Solu-Medrol, and the COVID-19 cocktail. Patient was noted to have shortness of breath, on BiPAP. On physical examination she had crackles and wheezes bilaterally. CBC showed WBC count of 13.1 hemoglobin of 15.3. Electrolytes were normal except for slightly elevated potassium of 5.6. BNP level was 5130, inflammatory markers were not done in the ER Patient was reevaluated today on 04/28/21, patient is feeling better today, breathing a lot easier. She is now on 2 L nasal cannula, O2 saturations 94%. Patient is resting in bed, relatively asymptomatic except for intermittent cough and minimal wheezing. CBC is relatively normal electrolytes are normal renal profile is normal. LDH is 678 C-reactive protein is 6.5. The patient is seen today 04/29/2021 in follow-up on the selective care unit. She is currently sitting up at bedside. Awake and alert in no acute distress. Maintaining O2 saturations in the 90s on 2 L/m per nasal cannula. She is feeling better today compared to yesterday. This is day #3 of Remdesivir, on vitamin supplements. She remains on IV Solu-Medrol, bronchodilators, diuretics. Anticoagulated with Eliquis. White count 9.0. Hemoglobin 12.7. Lymphocytes 0.4. Sodium 135. Potassium 4.2. Creatinine 0.97. Glucose 177. Objective - Vital Signs Vital signs: Vital Signs Temp 98 F 04/29/21 08:50 Pulse 95 04/29/21 08:50 Resp 18 04/29/21 08:50 BP 107/77 04/29/21 08:50 Pulse Ox 96 04/29/21 08:50 Intake & Output 04/28/21 04/29/21 04/29/21 18:59 06:59 18:59 Intake Total 180 95 240 Balance 180 95 240 Weight 91.5 kg Intake: Intake, IV Titration 95 Amount Diltiazem 125 mg In 95 Sodium Chloride 0.9% 100 ml @ 10 MG/HR 10 mls/hr IV .[id number] [facility] Rx#: [id number] Oral 180 240 Other: Voiding Method Bedside Commode Bedside Commode # Voids 2 1 # Bowel Movements 2 - Exam GENERAL EXAM: Revealed a very pleasant 89-year-old female on 2 L nasal cannula, not in distress. HEAD: Normocephalic/atraumatic. HEENT: PERRLA, EOMI, nonicteric, no masses, no JVD. CHEST: No chest wall deformity. Symmetrical expansion. LUNGS: Diminished breath sounds at the bases minimal wheezing on forced expiratory maneuver. CVS: Irregular irregular rhythm, 2/6 systolic murmur thought the precordium. ABDOMEN: Soft, nontender. No hepatosplenomegaly, normal bowel sounds, no gua rding or rigidity. EXTREMITIES: No clubbing, no edema, no cyanosis, 2+ pulses and upper and lower extremities. MUSCULOSKELETAL: Muscle strength and tone normal. SKIN: No rashes CENTRAL NERVOUS SYSTEM: Alert and oriented 3 no gross focal deficits. PSYCHIATRIC: Normal mood, affect and normal mental status examination. - Labs CBC & Chem 7: 04/29/21 06:29 04/29/21 06:29 Labs: Abnormal Lab Results - Last 24 Hours (Table) 04/28/21 04/28/21 04/29/21 Range/Units 16:48 20:00 03:46 Neutrophils # (1.3-7.7) k/uL Lymphocytes # (1.0-4.8) k/uL Sodium (137-145) mmol/L BUN (7-17) mg/dL Glucose (74-99) mg/dL POC Glucose (mg/dL) 216 H 201 H 169 H (75-99) mg/dL Calcium (8.4-10.2) mg/dL Total Protein (6.3-8.2) g/dL Albumin (3.5-5.0) g/dL 04/29/21 04/29/21 04/29/21 Range/Units 06:05 06:29 06:29 Neutrophils # 8.2 H (1.3-7.7) k/uL Lymphocytes # 0.4 L (1.0-4.8) k/uL Sodium 135 L (137-145) mmol/L BUN 38 H (7-17) mg/dL Glucose 177 H (74-99) mg/dL POC Glucose (mg/dL) 167 H (75-99) mg/dL Calcium 8.2 L (8.4-10.2) mg/dL Total Protein 5.1 L (6.3-8.2) g/dL Albumin 3.1 L (3.5-5.0) g/dL 04/29/21 Range/Units 11:45 Neutrophils # (1.3-7.7) k/uL Lymphocytes # (1.0-4.8) k/uL Sodium (137-145) mmol/L BUN (7-17) mg/dL Glucose (74-99) mg/dL POC Glucose (mg/dL) 209 H (75-99) mg/dL Calcium (8.4-10.2) mg/dL Total Protein (6.3-8.2) g/dL Albumin (3.5-5.0) g/dL Microbiology - Last 24 Hours (Table) 04/27/21 11:30 Blood Culture - Preliminary Blood No Growth after 24 hours 04/27/21 11:45 Blood Culture - Preliminary Blood No Growth after 24 hours Assessment and Plan Assessment: 1 Acute on chronic hypoxic respiratory failure 2 Acute COVID-19 pneumonia 3 Acute on chronic diastolic congestive heart failure ejection fraction of 55%. 4 Acute exacerbation of COPD triggered by COVID-19 pneumonia, patient has advanced COPD FEV1 of 39%. 5 Chronic atrial fibrillation 6 Moderate pulmonary hypertension 7 [id number] smoking history, in remission. 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 Plasencia Improved from the pulmonary standpoint Day #3 of Remdesivir Anticoagulated with Eliquis DC IV steroids, initiate prednisone taper Probable home in the a.m. We will continue to follow I, the cosigning physician, performed a history & physical examination of the patient. Lungs sounds with bilateral end expiratory wheeze. Maintaining good O2 saturations in the 90s on 2 L/m per nasal cannula. I discussed the assessment and plan of care with my nurse practitioner, Yessica Doe. I attest to the above note as dictated by her.
--- NOTE | 2021-04-29 13:05 | P.PN ---
Subjective This is a pleasant 89-year-old female past medical history significant for chronic persistent atrial fibrillation (on Eliquis), chronic respiratory failure with hypoxia, COPD, hypertension, sick sinus syndrome status post dual-chamber pacemaker implantation in 2018, former nicotine dependence. She follows in the office with Dr. Pina. We have been asked to see in consultation for atrial fibrillation. Patient presents emergency department with complaints of shortness of breath. EMS was called and patient was found to be hypoxic with oxygen sat urations in the 60s, placed on CPAP and proximal emergency department. Found to be COVID-19 positive. On admission the emergency room patient was placed on BiPAP, started on room due to severe, bronchodilators, IV Solu-Medrol. Most recent echocardiogram January 2021 revealed EF 55-60%, mild to moderate aortic regurgiation, mild to moderate tricuspid regurgitation, mild aortic stenosis with a peak/mean grading 23 mmHg/60 mmHg, mild to moderate mitral regurgitation, mild to moderate pulmonary hypertension with an RVSP of 42 mmHg Patient seen and examined at bedside, states her breathing has continuously improved. She is awake and alert in no acute distress. She is maintaining oxygen saturations in the 90s on 2 L nasal cannula. Yesterday night patient went atrial fibrillation with rapid ventricular response, heart rate in the 120s. She received 10 mg of IV Cardizem and started on IV Cardizem drip at 10 mg/hr. Patient's telemetry reviewed this morning currently in atrial fibrillation HR 80s. Laboratory reviewed sodium 135, potassium 4.2, BUN 38, serum creatinine 0.9, WBC 9, hemoglobin 12.7, platelets 159. PHYSICAL EXAMINATION Blood pressure 119/62, heart rate 80, afebrile oxygen saturations 98% on 2L nasal cannula CONSTITUTIONAL: No apparent distress. Full examination not completed to limit exposure ASSESSMENT Acute on chronic hypoxic respiratory failure Covid-19 infection COPD exacerbation Chronic persistent atrial fibrillation Hypertension Sick sinus syndrome status post dual-chamber pacemaker implantation in 2018 Former nicotine dependence PLAN Continue Eliquis BID Increase Cardizem to 360mg daily Discontinue IV cardizem drip Continue home cardiac medications Digoxin 62.5mg, and Metoprolol tartrate 100mg BID Continue statin Patient is on Remdesivir per protocol Continue cardiac telemetry Further recommendations based on clinical course Nurse Practitioner note has been reviewed, I agree with a documented findings and plan of care. Patient was seen and examined. Objective - Vital Signs Vital signs: Vital Signs Temp 98 F 04/29/21 08:50 Pulse 88 04/29/21 12:30 Resp 18 04/29/21 12:30 BP 119/62 04/29/21 12:30 Pulse Ox 98 04/29/21 12:30 Intake & Output 04/28/21 04/29/21 04/29/21 18:59 06:59 18:59 Intake Total 180 95 240 Balance 180 95 240 Weight 91.5 kg Intake: Intake, IV Titration 95 Amount Diltiazem 125 mg In 95 Sodium Chloride 0.9% 100 ml @ 10 MG/HR 10 mls/hr IV .[id number] [facility] Rx#: [id number] Oral 180 240 Other: Voiding Method Bedside Commode Bedside Commode # Voids 2 1 # Bowel Movements 2 - Labs CBC & Chem 7: 04/29/21 06:29 04/29/21 06:29 Labs: Abnormal Lab Results - Last 24 Hours (Table) 04/28/21 04/28/21 04/29/21 Range/Units 16:48 20:00 03:46 Neutrophils # (1.3-7.7) k/uL Lymphocytes # (1.0-4.8) k/uL Sodium (137-145) mmol/L BUN (7-17) mg/dL Glucose (74-99) mg/dL POC Glucose (mg/dL) 216 H 201 H 169 H (75-99) mg/dL Calcium (8.4-10.2) mg/dL Total Protein (6.3-8.2) g/dL Albumin (3.5-5.0) g/dL 04/29/21 04/29/21 04/29/21 Range/Units 06:05 06:29 06:29 Neutrophils # 8.2 H (1.3-7.7) k/uL Lymphocytes # 0.4 L (1.0-4.8) k/uL Sodium 135 L (137-145) mmol/L BUN 38 H (7-17) mg/dL Glucose 177 H (74-99) mg/dL POC Glucose (mg/dL) 167 H (75-99) mg/dL Calcium 8.2 L (8.4-10.2) mg/dL Total Protein 5.1 L (6.3-8.2) g/dL Albumin 3.1 L (3.5-5.0) g/dL 04/29/21 Range/Units 11:45 Neutrophils # (1.3-7.7) k/uL Lymphocytes # (1.0-4.8) k/uL Sodium (137-145) mmol/L BUN (7-17) mg/dL Glucose (74-99) mg/dL POC Glucose (mg/dL) 209 H (75-99) mg/dL Calcium (8.4-10.2) mg/dL Total Protein (6.3-8.2) g/dL Albumin (3.5-5.0) g/dL Microbiology - Last 24 Hours (Table) 04/27/21 11:30 Blood Culture - Preliminary Blood No Growth after 24 hours 04/27/21 11:45 Blood Culture - Preliminary Blood No Growth after 24 hours
--- NOTE | 2021-04-29 14:44 | P.PN ---
Subjective Progress Note Date: 04/28/21 Progress note 04/28/2021 HISTORY OF PRESENT ILLNESS This is an 89-year old- female patient of mine with a previous medical history significant for hypertension and hypertensive cardiovascular disease, hyperlipidemia, Paroxysmal atrial fibrillation, 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 and steroid dependent has been doing fine with her O2 and Nebulized treatment at home till recently where she found to be more short of breath with increased coughing despite using her Updraft treatment, so she came to the office on Tuesday with increased shortness breath associated with increased coughing she was found to be in atrial fibrillation with rapid ventricular response 12-lead EKG was done in the office and that showed a ventricular response of 109 patient was instructed to continue with current treatment plan, and if she is not getting better to go to the emergency department for evaluation, patient stated that she was doing fine up until today in the morning when she woke up in the morning and she developed to have a significant shortness breath associated with increased coughing she could not catch her breath eventually she ended up calling 911 she was found to be severely hypoxemic with oxygen in the low 70s patient was transported to the emergency department at [facility] she was tested positive for COVID-19 and she was placed immediately on BiPAP with an IPAP of 12 and EPAP of 6 patient was started on Solu-Medrol 60 mg IV push every 6 hours around the clock she was placed on Pulmicort 1 mg nebulization twice every day as well as DuoNeb 3 mg nebulization 4 times every day she was seen in consultation by Dr. Plasencia who recommended to start the patient on Remdesivir , patient will be admitted to the hospital for evaluation and treatment of COVID-19 pneumonia. 04/28: Patient is doing better continue to be in atrial fibrillation with fast ventricle response, she is currently on Cardizem 240 mg orally once every day as well as metoprolol 100 mg orally twice every day, consultation for triage was obtained, patient continues to be on Solu-Medrol 60 mg IV push every 6 hours , continue to be on day#2 of Remdesivir and oxygen support. REVIEW OF SYSTEMS Constitutional: positive for fever, no chills, no night sweats. No weight change. Reports weakness, Reports fatigue no lethargy. No daytime sleepiness. HEENT: No headache. No blurred vision or double vision, no loss of vision. No loss of Hearing, no ringing in the ears, no dizziness. No nasal drainage or congestion. No epistaxis. No sore throat, no loss of taste Lungs: Reports shortness of breath, Reports cough, positive for sputum production. Reports wheezing. Cardiovascular: No chest pain, mild lower extremity edema. positive for palpitations. No paroxysmal nocturnal dyspnea. No orthopnea. No lightheadedness or dizziness. No syncopal episodes. Abdominal: No abdominal pain. No nausea, vomiting. No diarrhea. No constipation. No bloody or tarry stools.. No loss of appetite. Genitourinary: No dysuria, increased frequency, urgency. No urinary retention. Musculoskeletal: No myalgias. positive for muscle weakness, no gait dysfu nction, no frequent falls. No back pain. No neck pain. Integumentary: No wounds, no lesions. No rash or pruritus. No unusual bruising. No change in hair or nails. Neurologic: No aphasia. No facial droop. No change in mentation. No head injury. No headache. No paralysis. No paresthesia. Psychiatric: No depression. No anxiety. No mood swings. Endocrine: No abnormal blood sugars. PHYSICAL EXAMINATION Gen: This is an 89-year-old female, lying down in bed in acute distress currently on BIPAP. HEENT: Head is atraumatic, normocephalic. Pupils equal, round. Sclerae is anicteric, mucous membranes of the mouth are somewhat dry. NECK: Supple. No JVD. No lymphadenopathy. No thyromegaly, decreased carotid upstrokes bilaterally. Chest: decrease breath sounds at the bases with few ronchi , minimal expiratory wheezes no chest wall tenderness minimal intercostal retractions. Heart: first heart sound is depressed second heart sound is normal there FLORY 2/6 located at the left sternal border, irregularly irregular due to atrial fibrillation. ABDOMEN: Soft, nontender, nondistended, positive bowel sounds, no hepatosplenomegaly. EXTREMITIES: Trace pedal edema. No calf tenderness. Dorsalis pedis +1 bilaterally. NEUROLOGICAL: Patient is awake, alert and oriented x3. Cranial nerves 2 through 12 are grossly intact muscle christopher 4 out of 5 in upper and lower extremities bilaterally., ASSESSMENT AND PLAN 1. Acute hypoxemic respiratory failure due to COVID-19 pneumonia and acute exacerbation of COPD . Continue droplet and contact precautions with eye protection, continue patient on BiPAP with this current Setting, continue patient on Solu-Medrol 60 mg IVP every 6 hours, Remdesevir 100 mg IVPB daily Day # 2 we will monitor LFTs. 2. Atrial fibrillation, paroxysmal. Patient currently in A. fib. Cardiology consult. Continue Digoxin 125 mcg orally daily, Cardizem CD 240 mg orally daily, Metoprolol 100 mg orally bid and Eliquis 2.5 mg orally bid. 3. Bilateral pneumonia suggestive of Covid pneumonia. Continue treatment as in paragraph #1. 4. Hypertension and hypertensive cardiovascular disease. Continue Losartn 25 mg orally daily, Metoprolol 100 mg orally bid. 5. Hyperlipidemia. Continue Lipitor 20 mg orally daily. 6. Chronic diastolic heart failure. we will continue with Lasix 20 mg orally bid, Losartan 25 mg orally daily and Metoprolol 100 mg orally bid and Furosemide 20 mg orally bid. 7. 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 we will continue with above treatment. 8. GERD. we will continue with Protonix 40 mg orally daily and Pepcid 20 mg po bid 9. CAD. Continue with Metoprolol 100 mg orally bid, Lipitor 20 mg orally daily and Imdur 15 mg orally daily. 10. Diabetes mellitus type 2. we will continue with Metformin 1000 mg orally with supper and Farxiga 5 mg orally daily, we will start sliding scale insulin. 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 we will hold off Residronate. 12. DVT prophylaxis. Continue eliquis. 2.5 mg orally bid. 13. GI Prophylaxis. we will continue with protonix 40 mg orally daily and pepcid 20 mg orally bid DISCHARGE PLAN Home with home care most likely. Objective - Vital Signs Vital signs: Vital Signs Temp 97.4 F L 04/28/21 00:00 Pulse 99 04/28/21 00:00 Resp 18 04/28/21 02:00 BP 100/59 04/28/21 00:00 Pulse Ox 99 04/28/21 00:00 Intake & Output 04/27/21 04/27/21 04/28/21 06:59 18:59 06:59 Weight 77.111 kg 77.111 kg Other: Voiding Method Bedside Commode # Voids 1 - Labs CBC & Chem 7: 04/29/21 06:29 04/29/21 06:29 Labs: Abnormal Lab Results - Last 24 Hours (Table) 04/27/21 04/27/21 04/27/21 Range/Units 10:14 10:14 10:14 WBC 13.1 H (3.8-10.6) k/uL Hct 49.4 H (34.0-46.0) % Neutrophils # 10.4 H (1.3-7.7) k/uL Sodium 133 L (137-145) mmol/L Potassium 5.6 H (3.5-5.1) mmol/L Chloride 95 L (98-107) mmol/L BUN 25 H (7-17) mg/dL Glucose 170 H (74-99) mg/dL Plasma Lactic Acid Lion 2.1 H* (0.7-2.0) mmol/L Magnesium 2.5 H (1.6-2.3) mg/dL AST 45 H (14-36) U/L ALT 37 H (4-34) U/L Coronavirus (PCR) (Not Detectd) 04/27/21 Range/Units 10:26 WBC (3.8-10.6) k/uL Hct (34.0-46.0) % Neutrophils # (1.3-7.7) k/uL Sodium (137-145) mmol/L Potassium (3.5-5.1) mmol/L Chloride (98-107) mmol/L BUN (7-17) mg/dL Glucose (74-99) mg/dL Plasma Lactic Acid Lion (0.7-2.0) mmol/L Magnesium (1.6-2.3) mg/dL AST (14-36) U/L ALT (4-34) U/L Coronavirus (PCR) Detected A (Not Detectd)
--- NOTE | 2021-04-29 14:47 | P.PN ---
Subjective Progress Note Date: 04/29/21 Progress note 04/28/2021 HISTORY OF PRESENT ILLNESS This is an 89-year old- female patient of mine with a previous medical history significant for hypertension and hypertensive cardiovascular disease, hyperlipidemia, Paroxysmal atrial fibrillation, 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 and steroid dependent has been doing fine with her O2 and Nebulized treatment at home till recently where she found to be more short of breath with increased coughing despite using her Updraft treatment, so she came to the office on Tuesday with increased shortness breath associated with increased coughing she was found to be in atrial fibrillation with rapid ventricular response 12-lead EKG was done in the office and that showed a ventricular response of 109 patient was instructed to continue with current treatment plan, and if she is not getting better to go to the emergency department for evaluation, patient stated that she was doing fine up until today in the morning when she woke up in the morning and she developed to have a significant shortness breath associated with increased coughing she could not catch her breath eventually she ended up calling 911 she was found to be severely hypoxemic with oxygen in the low 70s patient was transported to the emergency department at [facility] she was tested positive for COVID-19 and she was placed immediately on BiPAP with an IPAP of 12 and EPAP of 6 patient was started on Solu-Medrol 60 mg IV push every 6 hours around the clock she was placed on Pulmicort 1 mg nebulization twice every day as well as DuoNeb 3 mg nebulization 4 times every day she was seen in consultation by Dr. Plasencia who recommended to start the patient on Remdesivir , patient will be admitted to the hospital for evaluation and treatment of COVID-19 pneumonia. 04/28: Patient is doing better continue to be in atrial fibrillation with fast ventricle response, she is currently on Cardizem 240 mg orally once every day as well as metoprolol 100 mg orally twice every day, consultation for triage was obtained, patient continues to be on Solu-Medrol 60 mg IV push every 6 hours , continue to be on day#2 of Remdesivir and oxygen support. 04/29: Patient is doing much better today, she was taken off Cardizem drip, she was seen in consultation by cardiology her Cardizem was increased to 360 minute gram once every day, continue metoprolol 100 mg orally twice every day, she did receive Remdesivir day # 3 of 5 we will monitor the patient very closely. REVIEW OF SYSTEMS Constitutional: positive for fever, no chills, no night sweats. No weight change. Reports weakness, Reports fatigue no lethargy. No daytime sleepiness. HEENT: No headache. No blurred vision or double vision, no loss of vision. No loss of Hearing, no ringing in the ears, no dizziness. No nasal drainage or congestion. No epistaxis. No sore throat, no loss of taste Lungs: Reports shortness of breath, Reports cough, positive for sputum production. Reports wheezing. Cardiovascular: No chest pain, mild lower extremity edema. positive for palpitations. No paroxysmal nocturnal dyspnea. No orthopnea. No lightheadedness or dizziness. No syncopal episodes. Abdominal: No abdominal pain. No nausea, vomiting. No diarrhea. No co nstipation. No bloody or tarry stools.. No loss of appetite. Genitourinary: No dysuria, increased frequency, urgency. No urinary retention. Musculoskeletal: No myalgias. positive for muscle weakness, no gait dysfunction, no frequent falls. No back pain. No neck pain. Integumentary: No wounds, no lesions. No rash or pruritus. No unusual bruising. No change in hair or nails. Neurologic: No aphasia. No facial droop. No change in mentation. No head injury. No headache. No paralysis. No paresthesia. Psychiatric: No depression. No anxiety. No mood swings. Endocrine: No abnormal blood sugars. PHYSICAL EXAMINATION Gen: This is an 89-year-old female, lying down in bed in acute distress currently on BIPAP. HEENT: Head is atraumatic, normocephalic. Pupils equal, round. Sclerae is anicteric, mucous membranes of the mouth are somewhat dry. NECK: Supple. No JVD. No lymphadenopathy. No thyromegaly, decreased carotid upstrokes bilaterally. Chest: decrease breath sounds at the bases with few ronchi , minimal expiratory wheezes no chest wall tenderness minimal intercostal retractions. Heart: first heart sound is depressed second heart sound is normal there FLORY 2/6 located at the left sternal border, irregularly irregular due to atrial fibrillation. ABDOMEN: Soft, nontender, nondistended, positive bowel sounds, no hepatosplenomegaly. EXTREMITIES: Trace pedal edema. No calf tenderness. Dorsalis pedis +1 bilaterally. NEUROLOGICAL: Patient is awake, alert and oriented x3. Cranial nerves 2 through 12 are grossly intact muscle christopher 4 out of 5 in upper and lower extremities bilaterally., ASSESSMENT AND PLAN 1. Acute hypoxemic respiratory failure due to COVID-19 pneumonia and acute exacerbation of COPD . Continue droplet and contact precautions with eye protection, continue patient on BiPAP with this current Setting, patient was taken off Suresh or she was started on prednisone 40 mg once every day., Remd esevir 100 mg IVPB daily Day # 3 we will monitor LFTs. 2. Atrial fibrillation, paroxysmal. Patient currently in A. fib. Cardiology consult. Continue Digoxin 62.5 mcg orally daily, Cardizem CD 360 mg orally daily, Metoprolol 100 mg orally bid and Eliquis 2.5 mg orally bid. 3. Bilateral pneumonia suggestive of Covid pneumonia. Continue treatment as in paragraph #1. 4. Hypertension and hypertensive cardiovascular disease. Continue Losartn 25 mg orally daily, Metoprolol 100 mg orally bid. 5. Hyperlipidemia. Continue Lipitor 20 mg orally daily. 6. Chronic diastolic heart failure. we will continue with Lasix 20 mg orally bid, Losartan 25 mg orally daily and Metoprolol 100 mg orally bid and Furosemide 20 mg orally bid. 7. 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 we will continue with above treatment. 8. GERD. we will continue with Protonix 40 mg orally daily and Pepcid 20 mg po bid 9. CAD. Continue with Metoprolol 100 mg orally bid, Lipitor 20 mg orally daily and Imdur 15 mg orally daily. 10. Diabetes mellitus type 2. we will continue with Metformin 1000 mg orally with supper and Farxiga 5 mg orally daily, we will start sliding scale insulin. 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 we will hold off Residronate. 12. DVT prophylaxis. Continue eliquis. 2.5 mg orally bid. 13. GI Prophylaxis. we will continue with protonix 40 mg orally daily and pepcid 20 mg orally bid DISCHARGE PLAN Home with home care most likely. Objective - Vital Signs Vital signs: Vital Signs Temp 98 F 04/29/21 08:50 Pulse 88 04/29/21 12:30 Resp 18 04/29/21 12:30 BP 119/62 04/29/21 12:30 Pulse Ox 98 04/29/21 12:30 Intake & Output 04/28/21 04/29/21 04/29/21 18:59 06:59 18:59 Intake Total 180 95 480 Balance 180 95 480 Weight 91.5 kg Intake: Intake, IV Titration 95 Amount Diltiazem 125 mg In 95 Sodium Chloride 0.9% 100 ml @ 10 MG/HR 10 mls/hr IV .[id number] [facility] Rx#: [id number] Oral 180 480 Other: Voiding Method Bedside Commode Bedside Commode # Voids 2 1 3 # Bowel Movements 2 - Labs CBC & Chem 7: 04/29/21 06:29 04/29/21 06:29 Labs: Abnormal Lab Results - Last 24 Hours (Table) 04/28/21 04/28/21 04/29/21 Range/Units 16:48 20:00 03:46 Neutrophils # (1.3-7.7) k/uL Lymphocytes # (1.0-4.8) k/uL Sodium (137-145) mmol/L BUN (7-17) mg/dL Glucose (74-99) mg/dL POC Glucose (mg/dL) 216 H 201 H 169 H (75-99) mg/dL Calcium (8.4-10.2) mg/dL Total Protein (6.3-8.2) g/dL Albumin (3.5-5.0) g/dL 04/29/21 04/29/21 04/29/21 Range/Units 06:05 06:29 06:29 Neutrophils # 8.2 H (1.3-7.7) k/uL Lymphocytes # 0.4 L (1.0-4.8) k/uL Sodium 135 L (137-145) mmol/L BUN 38 H (7-17) mg/dL Glucose 177 H (74-99) mg/dL POC Glucose (mg/dL) 167 H (75-99) mg/dL Calcium 8.2 L (8.4-10.2) mg/dL Total Protein 5.1 L (6.3-8.2) g/dL Albumin 3.1 L (3.5-5.0) g/dL 04/29/21 Range/Units 11:45 Neutrophils # (1.3-7.7) k/uL Lymphocytes # (1.0-4.8) k/uL Sodium (137-145) mmol/L BUN (7-17) mg/dL Glucose (74-99) mg/dL POC Glucose (mg/dL) 209 H (75-99) mg/dL Calcium (8.4-10.2) mg/dL Total Protein (6.3-8.2) g/dL Albumin (3.5-5.0) g/dL Microbiology - Last 24 Hours (Table) 04/27/21 11:30 Blood Culture - Preliminary Blood No Growth after 48 hours 04/27/21 11:45 Blood Culture - Preliminary Blood No Growth after 48 hours
--- NOTE | 2021-04-29 15:13 | P.PN ---
Subjective Progress Note Date: 04/29/21 Principal diagnosis: Acute on chronic hypoxic respiratory failure This is an 89-year-old female with history of moderate severe COPD, chronic diastolic congestive heart failure, chronic hypoxic respiratory failure secondary to COPD, patient is prednisone dependent, patient is COVID-19 vaccinated, presented to the ER this morning with mostly one-day history of increased shortness of breath. Paramedics found the patient hypoxic and O2 saturation in the 60s, placed on CPAP, brought into the ER, chest x-ray showed minimal bibasilar infiltrates, patient had a positive rapid tests for COVID-19 infection, placed on BiPAP initially 100% with 06/08, and I cut down to 32%, evaluated the patient in the ER, and I recommended that the patient get started on remdesivir, continue BiPAP, continue bronchodilators, IV Solu-Medrol, and the COVID-19 cocktail. Patient was noted to have shortness of breath, on BiPAP. On physical examination she had crackles and wheezes bilaterally. CBC showed WBC count of 13.1 hemoglobin of 15.3. Electrolytes were normal except for slightly elevated potassium of 5.6. BNP level was 5130, inflammatory markers were not done in the ER Patient was reevaluated today on 04/28/21, patient is feeling better today, breathing a lot easier. She is now on 2 L nasal cannula, O2 saturations 94%. Patient is resting in bed, relatively asymptomatic except for intermittent cough and minimal wheezing. CBC is relatively normal electrolytes are normal renal profile is normal. LDH is 678 C-reactive protein is 6.5. Reevaluated today on 04/29/21, patient continues to steadily improve. She is breathing a lot better today, breathing easier, less cough and less wheezing less shortness of breath. Labs were reviewed she had a relatively normal CBC and normal electrolytes and renal profile. Objective - Vital Signs Vital signs: Vital Signs Temp 98 F 04/29/21 08:50 Pulse 88 04/29/21 14:10 Resp 18 04/29/21 14:10 BP 119/62 04/29/21 12:30 Pulse Ox 98 04/29/21 12:30 Intake & Output 04/28/21 04/29/21 04/29/21 18:59 06:59 18:59 Intake Total 180 95 480 Balance 180 95 480 Weight 91.5 kg Intake: Intake, IV Titration 95 Amount Diltiazem 125 mg In 95 Sodium Chloride 0.9% 100 ml @ 10 MG/HR 10 mls/hr IV .[id number] [facility] Rx#: [id number] Oral 180 480 Other: Voiding Method Bedside Commode Bedside Commode # Voids 2 1 3 # Bowel Movements 2 - Exam GENERAL EXAM: Revealed 89-year-old female on 2 L nasal cannula, not in distress. Very pleasant. HEAD: Normocephalic/atraumatic. HEENT: PERRLA, EOMI, nonicteric, no masses, no JVD. CHEST: No chest wall deformity. Symmetrical expansion. LUNGS: Diminished breath sounds at the bases hardly any wheezing noted today CVS: Irregular irregular rhythm, 2/6 systolic murmur thought the precordium. ABDOMEN: Soft, nontender. No hepatosplenomegaly, normal bowel sounds, no guarding or rigidity. EXTREMITIES: No clubbing, no edema, no cyanosis, 2+ pulses and upper and lower extremities. MUSCULOSKELETAL: Muscle strength and tone normal. SKIN: No rashes CENTRAL NERVOUS SYSTEM: Alert and oriented 3 no gross focal deficits. PSYCHIATRIC: Normal mood, affect and normal mental status examination. - Labs CBC & Chem 7: 04/29/21 06:29 04/29/21 06:29 Labs: Abnormal Lab Results - Last 24 Hours (Table) 04/28/21 04/28/21 04/29/21 Range/Units 16:48 20:00 03:46 Neutrophils # (1.3-7.7) k/uL Lymphocytes # (1.0-4.8) k/uL Sodium (137-145) mmol/L BUN (7-17) mg/dL Glucose (74-99) mg/dL POC Glucose (mg/dL) 216 H 201 H 169 H (75-99) mg/dL Calcium (8.4-10.2) mg/dL Total Protein (6.3-8.2) g/dL Albumin (3.5-5.0) g/dL 04/29/21 04/29/21 04/29/21 Range/Units 06:05 06:29 06:29 Neutrophils # 8.2 H (1.3-7.7) k/uL Lymphocytes # 0.4 L (1.0-4.8) k/uL Sodium 135 L (137-145) mmol/L BUN 38 H (7-17) mg/dL Glucose 177 H (74-99) mg/dL POC Glucose (mg/dL) 167 H (75-99) mg/dL Calcium 8.2 L (8.4-10.2) mg/dL Total Protein 5.1 L (6.3-8.2) g/dL Albumin 3.1 L (3.5-5.0) g/dL 04/29/21 Range/Units 11:45 Neutrophils # (1.3-7.7) k/uL Lymphocytes # (1.0-4.8) k/uL Sodium (137-145) mmol/L BUN (7-17) mg/dL Glucose (74-99) mg/dL POC Glucose (mg/dL) 209 H (75-99) mg/dL Calcium (8.4-10.2) mg/dL Total Protein (6.3-8.2) g/dL Albumin (3.5-5.0) g/dL Microbiology - Last 24 Hours (Table) 04/27/21 11:30 Blood Culture - Preliminary Blood No Growth after 48 hours 04/27/21 11:45 Blood Culture - Preliminary Blood No Growth after 48 hours Assessment and Plan Assessment: Impression: Acute on chronic hypoxic respiratory failure Acute COVID-19 pneumonia Acute on chronic diastolic congestive heart failure ejection fraction of 55%. Acute exacerbation of COPD triggered by COVID-19 pneumonia, patient has advanced COPD FEV1 of 39%. Chronic atrial fibrillation Moderate pulmonary hypertension [id number] smoking history, in remission. Benign essential hypertension History of dual-chamber pacemaker insertion for history of sinus pauses Recommendation: Continue oxygen and titrate accordingly Continue present supportive care measures. Continue remdesivir Droplet precautions and isolation. Continue Solu-Medrol and bronchodilators. We will transition the patient to oral steroids. Continue Lasix. Continue Eliquis. Continue COVID-19 cocktail. Consider discharge planning in the next 24 hours. No need to finish a full course of remdesivir since the patient is doing quite well Time with Patient: Less than 30
[2021-04-29 16:44] LABS: Glucose,Whole Blood 199 mg/dL (75-99)
[2021-04-29] MEDS: DIGOXIN 62.5 MCG TAB PO SCH (17:15)
[2021-04-29] MEDS: metFORMIN 500 MG TAB PO SCH (17:15)
[2021-04-29 19:58] LABS: Glucose,Whole Blood 199 mg/dL (75-99)
[2021-04-29] MEDS: MELATONIN 5 MG TABLET PO SCH (20:07)
[2021-04-29] MEDS: ATORVASTATIN 20 MG TAB PO SCH (20:07)
[2021-04-30 06:08] LABS: Glucose,Whole Blood 154 mg/dL (75-99)
[2021-04-30] MEDS: INSULIN ASPART (NovoLOG) 100 UNIT/ML VIAL SQ SCH ×4 (06:21→20:15)
[2021-04-30] MEDS: POTASSIUM CHLORIDE ER 10 MEQ TAB.ER.PRT PO SCH ×2 (06:29→17:12)
[2021-04-30] MEDS: PANTOPRAZOLE 40 MG TABLET PO SCH (06:29)
[2021-04-30] MEDS: FAMOTIDINE 20 MG TAB PO SCH (06:29)
[2021-04-30 08:32] LABS: Basophils % (A) 0 %; Eosinophils # (A) 0.1 k/uL (0-0.7); Eosinophils % (A) 1 %; HCT 42.9 % (34.0-46.0); HGB 13.4 gm/dL (11.4-16.0); Lymphocytes # (A) 0.7 k/uL (1.0-4.8); Lymphocytes % (A) 6 %; MCH 29.3 pg (25.0-35.0); MCHC 31.2 g/dL (31.0-37.0); MCV 93.9 fL (80.0-100.0); Mean Platelet Volume 7.4; Monocytes # (A) 0.5 k/uL (0-1.0); Monocytes % (A) 4 %; Neutrophils # (A) 11.1 k/uL (1.3-7.7); Neutrophils % (A) 89 %; Platelet Count 204 k/uL (150-450); RBC 4.57 m/uL (3.80-5.40); RDW 14.1 % (11.5-15.5); WBC 12.4 k/uL (3.8-10.6)
[2021-04-30] MEDS: ALBUTEROL HFA INHALER INHALATION SCH ×4 (08:43→21:43)
[2021-04-30] MEDS: TIOTROPIUM 2.5 MCG INHALER INHALATION SCH (08:43)
[2021-04-30] MEDS: METOPROLOL TARTRATE 50 MG TAB PO SCH ×2 (09:34→19:41)
[2021-04-30] MEDS: predniSONE 20 MG TAB PO SCH (09:35)
[2021-04-30] MEDS: CHOLECALCIFEROL 25 MCG (1000 IU) TABLET PO SCH (09:35)
[2021-04-30] MEDS: APIXABAN 2.5 MG TABLET PO SCH ×2 (09:35→19:41)
[2021-04-30] MEDS: FUROSEMIDE 20 MG TAB PO SCH ×2 (09:35→12:57)
[2021-04-30] MEDS: ASCORBIC ACID 500 MG TAB PO SCH ×2 (09:35→19:41)
[2021-04-30] MEDS: ZINC SULFATE 220 MG CAP PO SCH (09:35)
[2021-04-30] MEDS: LOSARTAN 25 MG TAB PO SCH (09:35)
[2021-04-30] MEDS: DILTIAZEM CD 180 MG CAP.ER.24H PO SCH (09:35)
[2021-04-30] MEDS: ISOSORBIDE MONONITRATE ER 15 MG TAB PO SCH (09:36)
[2021-04-30 10:32] LABS: ALT 36 U/L (4-34); AST 29 U/L (14-36); African American GFR (CKD) 79 (>60 ml/min/1.73 sqM); Albumin 3.3 g/dL (3.5-5.0); Alkaline Phosphatase 50 U/L (38-126); Anion Gap 9 mmol/L; Blood Urea Nitrogen 37 mg/dL (7-17); Calcium 8.5 mg/dL (8.4-10.2); Carbon Dioxide 26 mmol/L (22-30); Chloride 98 mmol/L (98-107); Glucose 218 mg/dL (74-99); Non-African American GFR(CKD) 69 (>60 ml/min/1.73 sqM); Potassium 4.3 mmol/L (3.5-5.1); Sodium 133 mmol/L (137-145); Total Bilirubin 0.4 mg/dL (0.2-1.3); Total Protein 5.3 g/dL (6.3-8.2)
[2021-04-30] MEDS: NON FORMULARY DRUG (Dapagliflozin Propanediol [Farxiga] 5 MG Tablet) PO SCH (10:39)
--- NOTE | 2021-04-30 11:44 | P.PN ---
Subjective This is a pleasant 89-year-old female past medical history significant for chronic persistent atrial fibrillation (on Eliquis), chronic respiratory failure with hypoxia, COPD, hypertension, sick sinus syndrome status post dual-chamber pacemaker implantation in 2018, former nicotine dependence. She follows in the office with Dr. Pina. We have been asked to see in consultation for atrial fibrillation. Patient presents emergency department with complaints of shortness of breath. EMS was called and patient was found to be hypoxic with oxygen sat urations in the 60s, placed on CPAP and proximal emergency department. Found to be COVID-19 positive. Patient seen and examined at bedside, states her breathing has continuously improved. She is feeling much better today. She is awake and alert in no acute distress. She is maintaining oxygen saturations >92% on 2-3 L nasal cannula. Patient's telemetry reviewed this morning currently in atrial fibrillation HR 80s-90s occasionally in the low 100s. Laboratory reviewed WBC 12.4, hemoglobin 13, platelets 204, sodium 133, potassium 4.3, BUN 37, serum creatinine 0.7. She's currently maintained on Cardizem 360 mg daily, Eliquis 2.5 mg twice a day, digoxin, metoprolol titrate 100 mg twice a day, losartan 25 mg daily\ PHYSICAL EXAMINATION Blood pressure 119/62, heart rate 80, afebrile oxygen saturations 98% on 2L nasal cannula CONSTITUTIONAL: No apparent distress. Full examination not completed to limit exposure ASSESSMENT Acute on chronic hypoxic respiratory failure Covid-19 infection COPD exacerbation Chronic persistent atrial fibrillation Hypertension Sick sinus syndrome status post dual-chamber pacemaker implantation in 2018 Former nicotine dependence PLAN Continue Eliquis 2.5mg BID, and Cardizem to 360mg daily Continue home cardiac medications Digoxin 62.5mg, and Metoprolol tartrate 100mg BID Continue statin Patient is on Remdesivir per protocol From a cardiology perspective, patient is stable, We will follow the patient has needed. Please reach out with any further questions or concerns. Nurse Practitioner note has been reviewed, I agree with a documented findings and plan of care. Patient was seen and examined. Objective - Vital Signs Vital signs: Vital Signs Temp 98.0 F 04/30/21 09:30 Pulse 119 H 04/30/21 09:30 Resp 20 04/30/21 04:00 BP 136/84 04/30/21 09:30 Pulse Ox 100 04/30/21 09:30 Intake & Output 04/29/21 04/30/21 04/30/21 18:59 06:59 18:59 Intake Total 720 240 420 Balance 720 240 420 Weight 91 kg Intake: Oral 720 240 420 Other: Voiding Method Bedside Commode Bedside Commode # Voids 1 2 2 # Bowel Movements 1 - Labs CBC & Chem 7: 04/30/21 08:05 04/30/21 08:05 Labs: Abnormal Lab Results - Last 24 Hours (Table) 04/29/21 04/29/21 04/29/21 Range/Units 11:45 16:42 19:56 WBC (3.8-10.6) k/uL Neutrophils # (1.3-7.7) k/uL Lymphocytes # (1.0-4.8) k/uL Sodium (137-145) mmol/L BUN (7-17) mg/dL Glucose (74-99) mg/dL POC Glucose (mg/dL) 209 H 199 H 199 H (75-99) mg/dL ALT (4-34) U/L Total Protein (6.3-8.2) g/dL Albumin (3.5-5.0) g/dL 04/30/21 04/30/21 04/30/21 Range/Units 06:06 08:05 08:05 WBC 12.4 H (3.8-10.6) k/uL Neutrophils # 11.1 H (1.3-7.7) k/uL Lymphocytes # 0.7 L (1.0-4.8) k/uL Sodium 133 L (137-145) mmol/L BUN 37 H (7-17) mg/dL Glucose 218 H (74-99) mg/dL POC Glucose (mg/dL) 154 H (75-99) mg/dL ALT 36 H (4-34) U/L Total Protein 5.3 L (6.3-8.2) g/dL Albumin 3.3 L (3.5-5.0) g/dL Microbiology - Last 24 Hours (Table) 04/27/21 11:30 Blood Culture - Preliminary Blood No Growth after 48 hours 04/27/21 11:45 Blood Culture - Preliminary Blood No Growth after 48 hours
[2021-04-30 11:47] LABS: Glucose,Whole Blood 196 mg/dL (75-99)
[2021-04-30 12:05] LABS: C Reactive Protein 2.3 mg/dL (<1.0); Digoxin <0.4 ng/mL
[2021-04-30] MEDS: CALCIUM CARBONATE 500 MG CHEWABLE PO SCH (12:57)
[2021-04-30] MEDS: CYANOCOBALAMIN 500 MCG TAB PO SCH (12:57)
[2021-04-30] MEDS: REMDESIVIR 100 MG in SODIUM CHLORIDE 0.9% 250 ML IVPB SCH (12:57)
[2021-04-30] MEDS: MAGNESIUM OXIDE 400 MG TAB PO SCH (12:57)
--- NOTE | 2021-04-30 13:05 | P.PN ---
Subjective Progress Note Date: 04/30/21 Principal diagnosis: Acute on chronic hypoxic respiratory failure secondary to COPD exacerbation, COVID-19 infection This is an 89-year-old female with history of moderate severe COPD, chronic diastolic congestive heart failure, chronic hypoxic respiratory failure secondary to COPD, patient is prednisone dependent, patient is COVID-19 vaccinated, presented to the ER this morning with mostly one-day history of increased shortness of breath. Paramedics found the patient hypoxic and O2 saturation in the 60s, placed on CPAP, brought into the ER, chest x-ray showed minimal bibasilar infiltrates, patient had a positive rapid tests for COVID-19 infection, placed on BiPAP initially 100% with 06/08, and I cut down to 32%, evaluated the patient in the ER, and I recommended that the patient get started on remdesivir, continue BiPAP, continue bronchodilators, IV Solu-Medrol, and the COVID-19 cocktail. Patient was noted to have shortness of breath, on BiPAP. On physical examination she had crackles and wheezes bilaterally. CBC showed WBC count of 13.1 hemoglobin of 15.3. Electrolytes were normal except for slightly elevated potassium of 5.6. BNP level was 5130, inflammatory markers were not done in the ER Patient was reevaluated today on 04/28/21, patient is feeling better today, breathing a lot easier. She is now on 2 L nasal cannula, O2 saturations 94%. Patient is resting in bed, relatively asymptomatic except for intermittent cough and minimal wheezing. CBC is relatively normal electrolytes are normal renal profile is normal. LDH is 678 C-reactive protein is 6.5. The patient is seen today 04/29/2021 in follow-up on the selective care unit. She is currently sitting up at bedside. Awake and alert in no acute distress. Maintaining O2 saturations in the 90s on 2 L/m per nasal cannula. She is feeling better today compared to yesterday. This is day #3 of Remdesivir, on vitamin supplements. She remains on IV Solu-Medrol, bronchodilators, diuretics. Anticoagulated with Eliquis. White count 9.0. Hemoglobin 12.7. Lymphocytes 0.4. Sodium 135. Potassium 4.2. Creatinine 0.97. Glucose 177. The patient is seen today 04/30/2021 in follow-up on the selective care unit. She is currently resting comfortably in bed. Awake and alert in no acute distress. A bit more short of breath today compared to yesterday. Some bronchospasm and wheezing. She is maintaining O2 saturation in the 90s on 3 L/m per nasal cannula. White count 12.4. Hemoglobin 13.4. Lymphocytes 0.7. Sodium 133. Potassium 4.3. Creatinine 0.77. Glucose 218. C-reactive protein 2.3. Day number 4 of Remdesivir. She remains on vitamin supplements, bronchodilators, prednisone, and Eliquis. Objective - Vital Signs Vital signs: Vital Signs Temp 97.5 F L 04/30/21 12:54 Pulse 75 04/30/21 12:54 Resp 16 04/30/21 12:54 BP 109/81 04/30/21 12:54 Pulse Ox 99 04/30/21 12:54 Intake & Output 04/29/21 04/30/21 04/30/21 18:59 06:59 18:59 Intake Total 720 240 600 Balance 720 240 600 Weight 91 kg Intake: Oral 720 240 600 Other: Voiding Method Bedside Commode Bedside Commode # Voids 1 2 2 # Bowel Movements 1 - Exam GENERAL EXAM: Revealed a very pleasant 89-year-old female on 2 L nasal cannula, not in distress. HEAD: Normocephalic/atraumatic. HEENT: PERRLA, EOMI, nonicteric, no masses, no JVD. CHEST: No chest wall deformity. Symmetrical expansion. LUNGS: Diminished breath sounds at the bases minimal wheezing on forced expiratory maneuver. CVS: Irregular irregular rhythm, 2/6 systolic murmur thought the precordium. ABDOMEN: Soft, nontender. No hepatosplenomegaly, normal bowel sounds, no guardi ng or rigidity. EXTREMITIES: No clubbing, no edema, no cyanosis, 2+ pulses and upper and lower extremities. MUSCULOSKELETAL: Muscle strength and tone normal. SKIN: No rashes CENTRAL NERVOUS SYSTEM: Alert and oriented 3 no gross focal deficits. PSYCHIATRIC: Normal mood, affect and normal mental status examination. - Labs CBC & Chem 7: 04/30/21 08:05 04/30/21 08:05 Labs: Abnormal Lab Results - Last 24 Hours (Table) 04/29/21 04/29/21 04/30/21 Range/Units 16:42 19:56 06:06 WBC (3.8-10.6) k/uL Neutrophils # (1.3-7.7) k/uL Lymphocytes # (1.0-4.8) k/uL Sodium (137-145) mmol/L BUN (7-17) mg/dL Glucose (74-99) mg/dL POC Glucose (mg/dL) 199 H 199 H 154 H (75-99) mg/dL ALT (4-34) U/L C-Reactive Protein (<1.0) mg/dL Total Protein (6.3-8.2) g/dL Albumin (3.5-5.0) g/dL 04/30/21 04/30/21 04/30/21 Range/Units 08:05 08:05 11:45 WBC 12.4 H (3.8-10.6) k/uL Neutrophils # 11.1 H (1.3-7.7) k/uL Lymphocytes # 0.7 L (1.0-4.8) k/uL Sodium 133 L (137-145) mmol/L BUN 37 H (7-17) mg/dL Glucose 218 H (74-99) mg/dL POC Glucose (mg/dL) 196 H (75-99) mg/dL ALT 36 H (4-34) U/L C-Reactive Protein 2.3 H (<1.0) mg/dL Total Protein 5.3 L (6.3-8.2) g/dL Albumin 3.3 L (3.5-5.0) g/dL Microbiology - Last 24 Hours (Table) 04/27/21 11:30 Blood Culture - Preliminary Blood No Growth after 48 hours 04/27/21 11:45 Blood Culture - Preliminary Blood No Growth after 48 hours Assessment and Plan Assessment: 1 Acute on chronic hypoxic respiratory failure secondary to an acute exacerbation of chronic obstructive pulmonary disease complicated by COVID-19 pneumonia 2 Acute COVID-19 pneumonia 3 Acute on chronic diastolic congestive heart failure ejection fraction of 55%. 4 Acute exacerbation of COPD triggered by COVID-19 pneumonia, patient has advanced COPD FEV1 of 39%. 5 Chronic atrial fibrillation 6 Moderate pulmonary hypertension 7 [id number] smoking history, in remission. 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 Plasencia Medications and labs reviewed Day #4 of Remdesivir Anticoagulated with Eliquis Continue prednisone, bronchodilators, diuretics Probable home in the a.m. I, the cosigning physician, performed a history & physical examination of the patient. Lungs sounds with bilateral end expiratory wheeze, diminished. Maintaining good O2 saturations in the 90s on 2 L/m per nasal cannula. I discussed the assessment and plan of care with my nurse practitioner, Yessica Doe. I attest to the above note as dictated by her.
[2021-04-30 16:39] LABS: Glucose,Whole Blood 247 mg/dL (75-99)
[2021-04-30] MEDS: metFORMIN 500 MG TAB PO SCH (17:12)
[2021-04-30] MEDS: DIGOXIN 62.5 MCG TAB PO SCH (17:13)
[2021-04-30] MEDS: MELATONIN 5 MG TABLET PO SCH (19:41)
[2021-04-30] MEDS: ATORVASTATIN 20 MG TAB PO SCH (19:41)
[2021-04-30 20:04] LABS: Glucose,Whole Blood 157 mg/dL (75-99)
[2021-04-30] MEDS: SYMBICORT 160-4.5 MCG INHALER INHALATION SCH (21:43)
[2021-04-30 23:35] VITALS: RESP 20
[2021-05-01 06:10] LABS: Glucose,Whole Blood 143 mg/dL (75-99)
[2021-05-01] MEDS: INSULIN ASPART (NovoLOG) 100 UNIT/ML VIAL SQ SCH (06:21)
[2021-05-01] MEDS: PANTOPRAZOLE 40 MG TABLET PO SCH (06:22)
[2021-05-01] MEDS: POTASSIUM CHLORIDE ER 10 MEQ TAB.ER.PRT PO SCH (06:22)
[2021-05-01] MEDS: FAMOTIDINE 20 MG TAB PO SCH (06:22)
--- NOTE | 2021-05-01 07:28 | P.PN ---
Subjective Progress Note Date: 04/30/21 HISTORY OF PRESENT ILLNESS This is an 89-year old- female patient of [facility] with a previous medical history significant for hypertension and hypertensive cardiovascular disease, hyperlipidemia, Paroxysmal atrial fibrillation, 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 and steroid dependent has been doing fine with her O2 and Nebulized treatment at home till recently where she found to be more short of breath with increased coughing despite using her Updraft treatment, so she came to the office on Tuesday with increased shortness breath associated with increased coughing she was found to be in atrial fibrillation with rapid ventricular response 12-lead EKG was done in the office and that showed a ventricular response of 109 patient was instructed to continue with current treatment plan, and if she is not getting better to go to the emergency department for evaluation, patient stated that she was doing fine up until today in the morning when she woke up in the morning and she developed to have a significant shortness breath associated with increased coughing she could not catch her breath eventually she ended up calling 911 she was found to be severely hypoxemic with oxygen in the low 70s patient was transported to the emergency department at [facility] she was tested positive for COVID-19 and she was placed immediately on BiPAP with an IPAP of 12 and EPAP of 6 patient was started on Solu-Medrol 60 mg IV push every 6 hours around the clock she was pl aced on Pulmicort 1 mg nebulization twice every day as well as DuoNeb 3 mg nebulization 4 times every day she was seen in consultation by Dr. Plasencia who recommended to start the patient on Remdesivir , patient will be admitted to the hospital for evaluation and treatment of COVID-19 pneumonia. 04/28: Patient is doing better continue to be in atrial fibrillation with fast ventricle response, she is currently on Cardizem 240 mg orally once every day as well as metoprolol 100 mg orally twice every day, consultation for triage was obtained, patient continues to be on Solu-Medrol 60 mg IV push every 6 hours , continue to be on day#2 of Remdesivir and oxygen support. 04/29: Patient is doing much better today, she was taken off Cardizem drip, she was seen in consultation by cardiology her Cardizem was increased to 360 minute gram once every day, continue metoprolol 100 mg orally twice every day, she did receive Remdesivir day # 3 of 5 we will monitor the patient very closely. 04/30: Patient is breathing status overall is stable but she is having slight increase in wheezing for which she is on steroids. She denies having any diarrhea, no abdominal pain. No fever or chills. She is on day #4 of Remdesivir. Patient has been afebrile, heart rate 119, blood pressure 136/84, pulse ox 100% on 3 L nasal cannula. Repeat blood work reveals WBC is 12.4, BUN 37 creatinine 0.77, sodium 133. Blood sugars are running between 144 and 247. C-reactive protein 2.3. Dig level less than 0.4. Plan to continue current medications, monitor patient overnight and plan for discharge home tomorrow. REVIEW OF SYSTEMS Constitutional: positive for fever, no chills, no night sweats. No weight change. Reports weakness, Reports fatigue no lethargy. No daytime sleepiness. HEENT: No headache. No blurred vision or double vision, no loss of vision. No loss of Hearing, no ringing in the ears, no dizziness. No nasal drainage or congestion. No epistaxis. No sore throat, no loss of taste Lungs: Reports shortness of breath, Reports cough, positive for sputum produc tion. Reports wheezing slightly worse today. Cardiovascular: No chest pain, mild lower extremity edema. positive for palpitations. No paroxysmal nocturnal dyspnea. No orthopnea. No lightheadedness or dizziness. No syncopal episodes. Abdominal: No abdominal pain. No nausea, vomiting. No diarrhea. No constipation. No bloody or tarry stools.. No loss of appetite. Genitourinary: No dysuria, increased frequency, urgency. No urinary retention. Musculoskeletal: No myalgias. positive for muscle weakness, no gait dysfunction, no frequent falls. No back pain. No neck pain. Integumentary: No wounds, no lesions. No rash or pruritus. No unusual bruising. No change in hair or nails. Neurologic: No aphasia. No facial droop. No change in mentation. No head injury. No headache. No paralysis. No paresthesia. Psychiatric: No depression. No anxiety. No mood swings. Endocrine: Noted abnormal blood sugars. PHYSICAL EXAMINATION Gen: This is an 89-year-old female, resting in bed in no acute distress. HEENT: Head is atraumatic, normocephalic. Pupils equal, round. Sclerae is anicteric, mucous membranes of the mouth are somewhat dry. NECK: Supple. No JVD. No lymphadenopathy. No thyromegaly, decreased carotid upstrokes bilaterally. Chest: decrease breath sounds at the bases with few ronchi , bilateral expiratory wheezes no chest wall tenderness minimal intercostal retractions. Heart: first heart sound is depressed second heart sound is normal there FLORY 2/6 located at the left sternal border, irregularly irregular due to atrial fibrillation. ABDOMEN: Soft, nontender, nondistended, positive bowel sounds, no hepatosplenomegaly. EXTREMITIES: Trace pedal edema. No calf tenderness. Dorsalis pedis +1 bilaterally. NEUROLOGICAL: Patient is awake, alert and oriented x3. Cranial nerves 2 through 12 are grossly intact muscle christopher 4 out of 5 in upper and lower extremities bilaterally., ASSESSMENT AND PLAN 1. Acute hypoxemic respiratory failure due to COVID-19 pneumonia and acute exacerbation of COPD . Continue droplet and contact precautions with eye protection, continue patient on nasal cannula oxygen therapy, continue oral prednisone 40 mg daily, vitamin supplements, eliquis, Remdesevir 100 mg IVPB daily Day #4 we will monitor LFTs. 2. Atrial fibrillation, paroxysmal. Patient currently in A. fib. Cardiology consult. Continue Digoxin 62.5 mcg orally daily, Cardizem CD 360 mg orally daily, Metoprolol 100 mg orally bid and Eliquis 2.5 mg orally bid. 3. Bilateral pneumonia suggestive of Covid pneumonia. Continue treatment as in paragraph #1. 4. Hypertension and hypertensive cardiovascular disease. Continue Losartn 25 mg orally daily, Metoprolol 100 mg orally bid. 5. Hyperlipidemia. Continue Lipitor 20 mg orally daily. 6. Chronic diastolic heart failure. we will continue with Lasix 20 mg orally bid, Losartan 25 mg orally daily and Metoprolol 100 mg orally bid and Furosemide 20 mg orally bid. 7. 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 we will continue with above treatment. 8. GERD. we will continue with Protonix 40 mg orally daily and Pepcid 20 mg po bid 9. CAD. Continue with Metoprolol 100 mg orally bid, Lipitor 20 mg orally daily and Imdur 15 mg orally daily. 10. 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 we will continue with Metformin 1000 mg orally with supper and Farxiga 5 mg orally daily, we will start sliding scale insulin. 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 we will hold off Residronate. 12. DVT prophylaxis. Continue eliquis. 2.5 mg orally bid. 13. GI Prophylaxis. we will continue with protonix 40 mg orally daily and pepcid 20 mg orally bid DISCHARGE PLAN Home on Tuesday Impression and plan of care have been directed as dictated by the signing physician. Noelle Gilbert nurse practitioner acting as scribe for signing physician. Objective - Vital Signs Vital signs: Vital Signs Temp 98.5 F 04/30/21 04:00 Pulse 86 04/30/21 04:00 Resp 20 04/30/21 04:00 BP 136/88 04/30/21 04:00 Pulse Ox 93 L 04/30/21 04:00 Intake & Output 04/29/21 04/30/21 04/30/21 18:59 06:59 18:59 Intake Total 720 240 Balance 720 240 Weight 91 kg Intake: Oral 720 240 Other: Voiding Method Bedside Commode Bedside Commode # Voids 1 2 # Bowel Movements 1 - Labs CBC & Chem 7: 04/30/21 08:05 04/30/21 08:05 Labs: Abnormal Lab Results - Last 24 Hours (Table) 04/29/21 04/29/21 04/29/21 Range/Units 11:45 16:42 19:56 POC Glucose (mg/dL) 209 H 199 H 199 H (75-99) mg/dL 04/30/21 Range/Units 06:06 POC Glucose (mg/dL) 154 H (75-99) mg/dL Microbiology - Last 24 Hours (Table) 04/27/21 11:30 Blood Culture - Preliminary Blood No Growth after 48 hours 04/27/21 11:45 Blood Culture - Preliminary Blood No Growth after 48 hours
[2021-05-01] MEDS: TIOTROPIUM 2.5 MCG INHALER INHALATION SCH (07:53)
[2021-05-01] MEDS: ALBUTEROL HFA INHALER INHALATION SCH (07:53)
[2021-05-01] MEDS: SYMBICORT 160-4.5 MCG INHALER INHALATION SCH (07:53)
[2021-05-01 08:10] VITALS: BP 142/100; PULSE 111; TEMP 97.7
[2021-05-01] MEDS: predniSONE 20 MG TAB PO SCH (08:28)
[2021-05-01] MEDS: ASCORBIC ACID 500 MG TAB PO SCH (08:28)
[2021-05-01] MEDS: ZINC SULFATE 220 MG CAP PO SCH (08:28)
[2021-05-01] MEDS: DILTIAZEM CD 180 MG CAP.ER.24H PO SCH (08:28)
[2021-05-01] MEDS: APIXABAN 2.5 MG TABLET PO SCH (08:29)
[2021-05-01] MEDS: CHOLECALCIFEROL 25 MCG (1000 IU) TABLET PO SCH (08:29)
[2021-05-01] MEDS: FUROSEMIDE 20 MG TAB PO SCH (08:29)
[2021-05-01] MEDS: METOPROLOL TARTRATE 50 MG TAB PO SCH (08:29)
[2021-05-01] MEDS: LOSARTAN 25 MG TAB PO SCH (08:29)
[2021-05-01] MEDS: ISOSORBIDE MONONITRATE ER 15 MG TAB PO SCH (08:30)
[2021-05-01] MEDS: NON FORMULARY DRUG (Dapagliflozin Propanediol [Farxiga] 5 MG Tablet) PO SCH (08:30)
--- NOTE | 2021-05-01 08:51 | P.DS ---
Providers Date of admission: 04/27/21 11:32 Expected date of discharge: 05/01/21 Attending physician: Phoenix Gutiérrez Consults: 04/27/21 11:33 Consult Physician Routine Consulting Provider: Shruti Plasencia Consult Reason/Comments: COPD, COVID Do you want consulting provider notified?: Already Contacted 04/28/21 04:32 Consult Physician Routine Consulting Provider: Josh Pina Consult Reason/Comments: Afib/COVID-19 Do you want consulting provider notified?: Yes Primary care physician: Phoenix Gutiérrez Hospital Course: HISTORY OF PRESENT ILLNESS This is an 89-year old- female patient of [facility] with a previous medical history significant for hypertension and hypertensive cardiovascular disease, hyperlipidemia, Paroxysmal atrial fibrillation, 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 and steroid dependent has been doing fine with her O2 and Nebulized treatment at home till recently where she found to be more short of breath with increased coughing despite using her Updraft treatment, so she came to the office on Tuesday with increased shortness breath associated with increased coughing she was found to be in atrial fibrillation with rapid ventricular response 12-lead EKG was done in the office and that showed a ventricular response of 109 patient was instructed to continue with current treatment plan, and if she is not getting better to go to the emergency department for evaluation, patient stated that she was doing fine up until today in the morning when she woke up in the morning and she developed to have a significant shortness breath associated with increased coughing she could not catch her breath eventually she ended up calling 911 she was found to be severely hypoxemic with oxygen in the low 70s patient was transported to the emergency department at [facility] she was tested positive for COVID-19 and she was placed immediately on BiPAP with an IPAP of 12 and EPAP of 6 patient was started on Solu-Medrol 60 mg IV push every 6 hours around the clock she was placed on Pulmicort 1 mg nebulization twice every day as well as DuoNeb 3 mg nebulization 4 times every day she was seen in consultation by Dr. Plasencia who recommended to start the patient on Remdesivir , patient will be admitted to the hospital for evaluation and treatment of COVID-19 pneumonia. 04/28: Patient is doing better continue to be in atrial fibrillation with fast ventricle response, she is currently on Cardizem 240 mg orally once every day as well as metoprolol 100 mg orally twice every day, consultation for triage was obtained, patient continues to be on Solu-Medrol 60 mg IV push every 6 hours , continue to be on day#2 of Remdesivir and oxygen support. 04/29: Patient is doing much better today, she was taken off Cardizem drip, she was seen in consultation by cardiology her Cardizem was increased to 360 minute gram once every day, continue metoprolol 100 mg orally twice every day, she did receive Remdesivir day # 3 of 5 we will monitor the patient very closely. 04/30: Patient is breathing status overall is stable but she is having slight increase in wheezing for which she is on steroids. She denies having any diarrhea, no abdominal pain. No fever or chills. She is on day #4 of Remdesivir. Patient has been afebrile, heart rate 119, blood pressure 136/84, pulse ox 100% on 3 L nasal cannula. Repeat blood work reveals WBC is 12.4, BUN 37 creatinine 0.77, sodium 133. Blood sugars are running between 144 and 247. C-reactive protein 2.3. Dig level less than 0.4. Plan to continue current medications, monitor patient overnight and plan for discharge home tomorrow. 05/01: Patient is sitting at the edge of the bed. Her breathing status is much improved and felt back to her baseline. She is anxious to go home today. She does have home oxygen therapy. Pulse ox is 97% on 2 L. Patient will be discharged home today in stable condition. ASSESSMENT AND PLAN 1. Acute on chronic hypoxemic respiratory failure due to COVID-19 pneumonia and acute exacerbation of COPD. 2. Atrial fibrillation, paroxysmal. 3. Bilateral pneumonia suggestive of Covid pneumonia. 4. Hypertension and hypertensive cardiovascular disease. 5. Hyperlipidemia. 6. Chronic diastolic heart failure. 7. 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 8. GERD. 9. CAD. 10. Diabetes mellitus type 2. DISCHARGE PLAN Home Impression and plan of care have been directed as dictated by the signing physician. Noelle Gilbert nurse practitioner acting as scribe for signing physician. Patient Condition at Discharge: Stable Plan - Discharge Summary Discharge Rx Participant: No New Discharge Prescriptions: New Zinc Sulfate [Orazinc] 220 mg PO DAILY cap predniSONE 0 mg PO DIRECTED #30 tab Ascorbic Acid [Vitamin C] 500 mg PO BID tab Cholecalciferol [Vitamin D3 (25 Mcg = 1000 Iu)] 50 mcg PO DAILY tablet Continue Apixaban [Eliquis] 2.5 mg PO BID tablet Famotidine [Pepcid] 20 mg PO AC-BID Risedronate Sodium [Risedronate Sodium Dr] 35 mg PO MO Omeprazole 20 mg PO DAILY Isosorbide Mononitrate ER [Imdur] 15 mg PO DAILY Digoxin [Digitek] 62.5 mcg PO MOTUWETHFRSA Atorvastatin [Lipitor] 20 mg PO HS Albuterol Inhaler [Ventolin Hfa Inhaler] 1 - 2 puff INHALATION RT-QID PRN PRN Reason: Shortness Of Breath Calcium Carbonate [Calcium] 600 mg PO W/LUNCH Melatonin 5 mg PO HS Dapagliflozin Propanediol [Farxiga] 5 mg PO DAILY metFORMIN HCL [Glucophage] 1,000 mg PO W/SUPPER Ipratropium-Albuterol Nebulize [Duoneb 0.5 mg-3 mg/3 ml Soln] 3 ml INHALATION RT-QID Metoprolol Tartrate [Lopressor] 100 mg PO BID #180 tab Budesonide-Formot 160-4.5 Mcg [Symbicort 160-4.5 Mcg Inhaler] 2 puff INHALATION RT-BID #1 puff Budesonide [Pulmicort] 1 mg INHALATION RT-BID PRN PRN Reason: Shortness Of Breath Potassium Chloride [Klor-Con 10 ER] 10 meq PO BID-W/MEALS #0 Magnesium Oxide [Mag-Ox] 400 mg PO W/LUNCH Cyanocobalamin (Vitamin B-12) [Vitamin B-12] 1,000 mcg PO W/LUNCH Losartan [Cozaar] 25 mg PO DAILY Furosemide [Lasix] 20 mg PO BID@0800,1200 #0 predniSONE 10 mg PO DAILY #0 Discontinued Diltiazem Cd [Cardizem CD] 240 mg PO HS #90 cap.er.24h Discharge Medication List Apixaban [Eliquis] 2.5 mg PO BID tablet 08/11/17 [Rx] Famotidine [Pepcid] 20 mg PO AC-BID 10/23/17 [History] Albuterol Inhaler [Ventolin Hfa Inhaler] 1 - 2 puff INHALATION RT-QID PRN 06/16/20 [History] Atorvastatin [Lipitor] 20 mg PO HS 06/16/20 [History] Digoxin [Digitek] 62.5 mcg PO MOTUWETHFRSA 06/16/20 [History] Isosorbide Mononitrate ER [Imdur] 15 mg PO DAILY 06/16/20 [History] Omeprazole 20 mg PO DAILY 06/16/20 [History] Risedronate Sodium [Risedronate Sodium Dr] 35 mg PO MO 06/16/20 [History] Calcium Carbonate [Calcium] 600 mg PO W/LUNCH 01/21/21 [History] Cyanocobalamin (Vitamin B-12) [Vitamin B-12] 1,000 mcg PO W/LUNCH 01/21/21 [History] Dapagliflozin Propanediol [Farxiga] 5 mg PO DAILY 01/21/21 [History] Ipratropium-Albuterol Nebulize [Duoneb 0.5 mg-3 mg/3 ml Soln] 3 ml INHALATION RT-QID 01/21/21 [History] Losartan [Cozaar] 25 mg PO DAILY 01/21/21 [History] Magnesium Oxide [Mag-Ox] 400 mg PO W/LUNCH 01/21/21 [History] Melatonin 5 mg PO HS 01/21/21 [History] metFORMIN HCL [Glucophage] 1,000 mg PO W/SUPPER 01/21/21 [History] Budesonide-Formot 160-4.5 Mcg [Symbicort 160-4.5 Mcg Inhaler] 2 puff INHALATION RT-BID #1 puff 01/24/21 [Rx] Metoprolol Tartrate [Lopressor] 100 mg PO BID #180 tab 01/24/21 [Rx] Budesonide [Pulmicort] 1 mg INHALATION RT-BID PRN 04/27/21 [History] Ascorbic Acid [Vitamin C] 500 mg PO BID tab 05/01/21 [Rx] Cholecalciferol [Vitamin D3 (25 Mcg = 1000 Iu)] 50 mcg PO DAILY tablet 05/01/21 [Rx] Furosemide [Lasix] 20 mg PO BID@0800,1200 #0 05/01/21 [Rx] Potassium Chloride [Klor-Con 10 ER] 10 meq PO BID-W/MEALS #0 05/01/21 [Rx] Zinc Sulfate [Orazinc] 220 mg PO DAILY cap 05/01/21 [Rx] predniSONE 0 mg PO DIRECTED #30 tab 05/01/21 [Rx] predniSONE 10 mg PO DAILY #0 05/01/21 [Rx] Follow up Appointment(s)/Referral(s): Phoenix Gutiérrez MD [Primary Care Provider] - 05/12/21 1:30 pm Josh Pina MD [STAFF PHYSICIAN] - 4 Weeks (office will call with follow up appointment date and time) Patient Instructions/Handouts: Coronavirus Disease 2019 (COVID-19) Discharge Disposition: HOME SELF-CARE
--- NOTE | 2021-05-01 14:25 | P.PN ---
Subjective Progress Note Date: 05/01/21 Principal diagnosis: Acute on chronic hypoxic respiratory failure secondary to COPD exacerbation, COVID-19 infection This is an 89-year-old female with history of moderate severe COPD, chronic diastolic congestive heart failure, chronic hypoxic respiratory failure secondary to COPD, patient is prednisone dependent, patient is COVID-19 vaccinated, presented to the ER this morning with mostly one-day history of increased shortness of breath. Paramedics found the patient hypoxic and O2 saturation in the 60s, placed on CPAP, brought into the ER, chest x-ray showed minimal bibasilar infiltrates, patient had a positive rapid tests for COVID-19 infection, placed on BiPAP initially 100% with 06/08, and I cut down to 32%, evaluated the patient in the ER, and I recommended that the patient get started on remdesivir, continue BiPAP, continue bronchodilators, IV Solu-Medrol, and the COVID-19 cocktail. Patient was noted to have shortness of breath, on BiPAP. On physical examination she had crackles and wheezes bilaterally. CBC showed WBC count of 13.1 hemoglobin of 15.3. Electrolytes were normal except for slightly elevated potassium of 5.6. BNP level was 5130, inflammatory markers were not done in the ER Patient was reevaluated today on 04/28/21, patient is feeling better today, breathing a lot easier. She is now on 2 L nasal cannula, O2 saturations 94%. Patient is resting in bed, relatively asymptomatic except for intermittent cough and minimal wheezing. CBC is relatively normal electrolytes are normal renal profile is normal. LDH is 678 C-reactive protein is 6.5. The patient is seen today 04/29/2021 in follow-up on the selective care unit. She is currently sitting up at bedside. Awake and alert in no acute distress. Maintaining O2 saturations in the 90s on 2 L/m per nasal cannula. She is feeling better today compared to yesterday. This is day #3 of Remdesivir, on vitamin supplements. She remains on IV Solu-Medrol, bronchodilators, diuretics. Anticoagulated with Eliquis. White count 9.0. Hemoglobin 12.7. Lymphocytes 0.4. Sodium 135. Potassium 4.2. Creatinine 0.97. Glucose 177. The patient is seen today 04/30/2021 in follow-up on the selective care unit. She is currently resting comfortably in bed. Awake and alert in no acute distress. A bit more short of breath today compared to yesterday. Some bronchospasm and wheezing. She is maintaining O2 saturation in the 90s on 3 L/m per nasal cannula. White count 12.4. Hemoglobin 13.4. Lymphocytes 0.7. Sodium 133. Potassium 4.3. Creatinine 0.77. Glucose 218. C-reactive protein 2.3. Day number 4 of Remdesivir. She remains on vitamin supplements, bronchodilators, prednisone, and Eliquis. The patient is seen today 05/01/2021 in follow-up on the selective care unit. She is currently sitting up at the bedside. Awake and alert in no acute distress. Feeling back to her baseline. Hoping to go home today. She is maintaining good O2 saturations in the upper 90s on 2 L/m per nasal cannula. She's been afebrile. Blood glucose 143. She's been maintained on Symbicort, albuterol, prednisone. Anticoagulated with Eliquis. She remains on vitamin supplements. Objective - Vital Signs Vital signs: Vital Signs Temp 97.7 F 05/01/21 08:10 Pulse 111 H 05/01/21 08:10 Resp 20 05/01/21 08:10 BP 142/100 05/01/21 08:10 Pulse Ox 97 05/01/21 08:10 Intake & Output 04/30/21 05/01/21 05/01/21 18:59 06:59 18:59 Intake Total 780 240 420 Balance 780 240 420 Weight 91 kg Intake: Oral 780 240 420 Other: Voiding Method Bedside Commode Bedside Commode # Voids 2 1 1 - Exam GENERAL EXAM: Revealed a very pleasant 89-year-old female on 2 L nasal cannula, not in distress. HEAD: Normocephalic/atraumatic. HEENT: PERRLA, EOMI, nonicteric, no masses, no JVD. CHEST: No chest wall deformity. Symmetrical expansion. LUNGS: Diminished breath sounds at the bases minimal wheezing on forced expiratory maneuver. CVS: Irregular irregular rhythm, 2/6 systolic murmur thought the precordium. ABDOMEN: Soft, nontender. No hepatosplenomegaly, normal bowel sounds, no guarding or rigidity. EXTREMITIES: No clubbing, no edema, no cyanosis, 2+ pulses and upper and lower extremities. MUSCULOSKELETAL: Muscle strength and tone normal. SKIN: No rashes CENTRAL NERVOUS SYSTEM: Alert and oriented 3 no gross focal deficits. PSYCHIATRIC: Normal mood, affect and normal mental status examination. - Labs CBC & Chem 7: 04/30/21 08:05 04/30/21 08:05 Labs: Abnormal Lab Results - Last 24 Hours (Table) 04/30/21 04/30/21 05/01/21 Range/Units 16:37 20:02 06:09 POC Glucose (mg/dL) 247 H 157 H 143 H (75-99) mg/dL Microbiology - Last 24 Hours (Table) 04/27/21 11:30 Blood Culture - Preliminary Blood No Growth after 96 hours 04/27/21 11:45 Blood Culture - Preliminary Blood No Growth after 96 hours Assessment and Plan Assessment: 1 Acute on chronic hypoxic respiratory failure secondary to an acute exacerbation of chronic obstructive pulmonary disease complicated by COVID-19 pneumonia 2 Acute COVID-19 pneumonia 3 Acute on chronic diastolic congestive heart failure ejection fraction of 55%. 4 Acute exacerbation of COPD triggered by COVID-19 pneumonia, patient has advanced COPD FEV1 of 39%. 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 Plasencia Cleared for discharge from the pulmonary standpoint Anticoagulated with Eliquis Continue prednisone, bronchodilators, diuretics Follow-up in the office in 3-4 weeks' time I, the cosigning physician, performed a history & physical examination of the patient. Lungs sounds with bilateral end expiratory wheeze, diminished. Maintaining good O2 saturations in the 90s on 2 L/m per nasal cannula. I discussed the assessment and plan of care with my nurse practitioner, Yessica Doe. I attest to the above note as dictated by her.
== END 2021-05-01 11:50 | disposition home or self-care (01) | DRG 177 ==
LOC: EC 09:58 → 3SCARD 11:32
PROVIDERS: ADMIT Internal Medicine; ATTEND Internal Medicine
PROC: XW033E5 Introduction of Remdesivir Anti-infective into Peripheral Vein, Percutaneous Approach, New Technology Group 5 (ICD-10-PCS; principal; 2021-04-27)
PROC: 5A09357 Assistance with Respiratory Ventilation, Less than 24 Consecutive Hours, Continuous Positive Airway Pressure (ICD-10-PCS; 2021-04-27)
DX: U07.1 COVID-19 (principal); J96.21 Acute and chronic respiratory failure with hypoxia; I50.33 Acute on chronic diastolic (congestive) heart failure; J12.82 Pneumonia due to coronavirus disease 2019; I48.19 Other persistent atrial fibrillation; J44.0 Chronic obstructive pulmonary disease with (acute) lower respiratory infection; J44.1 Chronic obstructive pulmonary disease with (acute) exacerbation; I25.10 Atherosclerotic heart disease of native coronary artery without angina pectoris; I49.5 Sick sinus syndrome; I27.20 Pulmonary hypertension, unspecified; K21.9 Gastro-esophageal reflux disease without esophagitis; T38.0X5A Adverse effect of glucocorticoids and synthetic analogues, initial encounter; I48.0 Paroxysmal atrial fibrillation; E11.65 Type 2 diabetes mellitus with hyperglycemia; I08.3 Combined rheumatic disorders of mitral, aortic and tricuspid valves; M19.90 Unspecified osteoarthritis, unspecified site; I11.0 Hypertensive heart disease with heart failure; E78.5 Hyperlipidemia, unspecified; M81.0 Age-related osteoporosis without current pathological fracture; Z79.01 Long term (current) use of anticoagulants; Z79.51 Long term (current) use of inhaled steroids; Z79.52 Long term (current) use of systemic steroids; Z79.84 Long term (current) use of oral hypoglycemic drugs; Z79.899 Other long term (current) drug therapy; Z85.828 Personal history of other malignant neoplasm of skin; Z87.891 Personal history of nicotine dependence; Z95.0 Presence of cardiac pacemaker; Z96.1 Presence of intraocular lens; Z99.81 Dependence on supplemental oxygen; Z98.42 Cataract extraction status, left eye; Z98.41 Cataract extraction status, right eye; Z88.2 Allergy status to sulfonamides; Z91.041 Radiographic dye allergy status; Z87.19 Personal history of other diseases of the digestive system; Z91.013 Allergy to seafood
CPT/HCPCS: 36415; 71045; 80053; 80162; 82728; 83605; 83615; 83735; 83880; 84145; 84484; 85025; 85379; 85610; 85730; 86140; 87040; 87635; 93005; 94640; 94660; 96374; 99291

== ENCOUNTER 2021-05-04 11:09 | Inpatient (IN) | payer MEDICARE ==
[2021-05-04] MEDS ORDERED: SODIUM CHLORIDE 0.9% 500 ML 500 ML IV STA (11:48)
[2021-05-04] MEDS ORDERED: IPRATROPIUM-ALBUTEROL 3 ML NEB INHALATION STA (11:53)
--- NOTE | 2021-05-04 11:55 | ED ---
General Adult HPI - General Chief complaint: Shortness of Breath Stated complaint: MONICA,Covid+ Time Seen by Provider: 05/04/21 11:17 Source: EMS Mode of arrival: EMS Limitations: no limitations - History of Present Illness Initial comments: Zehra is an 89-year-old female with a complicated past medical history including atrial fibrillation, heart failure, COPD on 2 L at home, hyperlipidemia, hypertension presents to the emergency room for a chief complaint of shortness of breath. Patient reports that she was discharged home from the hospital with coronavirus 2 days ago. States that yesterday he started worsening soreness of breath. She has been doing her breathing treatments but it does not seem to be getting better. States she couldn't stay at home any longer with this. Patient does feel her heart is racing. She does have a history of atrial fibrillation.Patient has no other complaints at this time including chest pain, abdominal pain, nausea or vomiting, headache, or visual changes. - Related Data Home Medications Medication Instructions Recorded Confirmed Famotidine [Pepcid] 20 mg PO AC-BID 10/23/17 05/04/21 Albuterol Inhaler [Ventolin Hfa 1 - 2 puff INHALATION RT-QID PRN 06/16/20 05/04/21 Inhaler] Atorvastatin [Lipitor] 20 mg PO HS 06/16/20 05/04/21 Digoxin [Digitek] 62.5 mcg PO MOTUWETHFRSA 06/16/20 05/04/21 Isosorbide Mononitrate ER [Imdur] 15 mg PO DAILY 06/16/20 05/04/21 Omeprazole 20 mg PO DAILY 06/16/20 05/04/21 Risedronate Sodium [Risedronate 35 mg PO MO 06/16/20 05/04/[address]] Calcium Carbonate [Calcium] 600 mg PO AC-LUNCH 01/21/21 05/04/21 Cyanocobalamin (Vitamin B-12) 1,000 mcg PO AC-LUNCH 01/21/21 05/04/21 [Vitamin B-12] Dapagliflozin Propanediol [Farxiga] 5 mg PO DAILY 01/21/21 05/04/21 Ipratropium-Albuterol Nebulize 3 ml INHALATION RT-QID 01/21/21 05/04/21 [Duoneb 0.5 mg-3 mg/3 ml Soln] Losartan [Cozaar] 25 mg PO DAILY 01/21/21 05/04/21 Magnesium Oxide [Mag-Ox] 400 mg PO AC-LUNCH 01/21/21 05/04/21 Melatonin 5 mg PO HS 01/21/21 05/04/21 metFORMIN HCL [Glucophage] 1,000 mg PO AC-SUPPER 01/21/21 05/04/21 Budesonide [Pulmicort] 1 mg INHALATION RT-BID PRN 04/27/21 05/04/21 Potassium Chloride [Potassium 10 meq PO AC-BID 05/04/21 05/04/21 Chloride ER] predniSONE See Taper PO DIRECTED 05/04/21 05/04/21 Previous Rx's Medication Instructions Recorded Apixaban [Eliquis] 2.5 mg PO BID tablet 08/11/17 Budesonide-Formot 160-4.5 Mcg 2 puff INHALATION RT-BID #1 puff 01/24/21 [Symbicort 160-4.5 Mcg Inhaler] Metoprolol Tartrate [Lopressor] 100 mg PO BID #180 tab 01/24/21 Ascorbic Acid [Vitamin C] 500 mg PO BID tab 05/01/21 Cholecalciferol [Vitamin D3 (25 50 mcg PO DAILY tablet 05/01/21 Mcg = 1000 Iu)] Furosemide [Lasix] 20 mg PO BID@0800,1200 #0 05/01/21 Zinc Sulfate [Orazinc] 220 mg PO DAILY cap 05/01/21 predniSONE 10 mg PO DAILY #0 05/01/21 Allergies Allergy/AdvReac Type Severity Reaction Status Date / Time Sulfa (Sulfonamide Allergy Unknown Verified 05/04/21 14:19 Antibiotics) Childhood shellfish derived [Shellfish] AdvReac Nausea & Verified 05/04/21 14:19 Vomiting & Diarrhea Review of Systems ROS Statement: Those systems with pertinent positive or pertinent negative responses have been documented in the HPI. ROS Other: All systems not noted in ROS Statement are negative. Past Medical History Past Medical History: Atrial Fibrillation, Cancer, Heart Failure, COPD, G ERD/Reflux, Hyperlipidemia, Hypertension, Osteoarthritis (OA) Additional Past Medical History / Comment(s): skin cancer on scalp, macular degeneration History of Any Multi-Drug Resistant Organisms: None Reported Past Surgical History: Hernia Repair, Pacemaker, Tonsillectomy Additional Past Surgical History / Comment(s): skin cancer removed from scalp, andrew cataracts Past Anesthesia/Blood Transfusion Reactions: No Reported Reaction Type of Cardiac Device: Permanent Pacemaker Device Placement Date:: 2017 Past Psychological History: No Psychological Hx Reported Smoking Status: Former smoker Past Alcohol Use History: Occasional Past Drug Use History: None Reported - Past Family History Father Family Medical History: Coronary Artery Disease (CAD) Additional Family Medical History / Comment(s): Father at age 91 with history of heart disease. Mother Family Medical History: Cancer Additional Family Medical History / Comment(s): Mother at age 87 from pancreatic cancer. Brother(s) Additional Family Medical History / Comment(s): Patient has 1 brother that at age 93 from liver cancer. Sister(s) Additional Family Medical History / Comment(s): Patient has 2 sisters with no major medical problems. Daughter(s) Additional Family Medical History / Comment(s): Patient has a total of 4 children, 3 daughters and 1 son. One daughter at a young age and a motor vehicle accident. General Exam Limitations: no limitations General appearance: alert, in no apparent distress Head exam: Present: atraumatic Eye exam: Present: normal appearance, PERRL, EOMI. Absent: scleral icterus, conjunctival injection ENT exam: Present: normal exam, mucous membranes moist Neck exam: Present: normal inspection, full ROM. Absent: tenderness Respiratory exam: Present: rales, rhonchi. Absent: respiratory distress, wheezes Cardiovascular Exam: Present: regular rate, normal rhythm, normal heart sounds GI/Abdominal exam: Present: soft, normal bowel sounds. Absent: distended, tenderness Neurological exam: Present: alert Course Vital Signs 05/04/21 05/04/21 05/04/21 11:25 11:31 13:31 Temperature 99.3 F Pulse Rate 116 H 111 H Respiratory 24 24 20 Rate Blood Pressure 156/97 O2 Sat by Pulse 100 100 Oximetry 05/04/21 14:19 Temperature 98.1 F Pulse Rate 117 H Respiratory 20 Rate Blood Pressure 117/87 O2 Sat by Pulse 100 Oximetry EKG Findings - EKG Comments: EKG Findings:: Atrial fibrillation, RVR, ventricular rate 119, QTC 450 Medical Decision Making - Medical Decision Making Vitals are stable. Patient has a low-grade fever of 99.8. She did present an A. fib RVR with a heart rate in the 120s. She was given Tylenol. CBC was obtained and she does have leukocytosis however has been on steroids. CMP does reveal mild dehydration but is otherwise unremarkable. Troponin is within normal limits. BNP is elevated at 9000. Chest x-ray does not show any significant changes. I did speak with Dr. Gutiérrez about heart rate. Wanted to try Lasix before deciding on admission status. Lasix was given along with the Tylenol. Unfortunately heart rate did not improve and continues to be in the high 120s. At this point we will admit patient to the hospital. Dr. Gutiérrez does accept. Request cardiology consultation answered and patient on Cardizem. I will gently rehydrate patient. - Lab Data Result diagrams: 05/04/21 12:24 05/04/21 12:24 Lab Results 05/04/21 05/04/21 05/04/21 Range/Units 12:24 12:24 12:24 WBC 17.8 H (3.8-10.6) k/uL RBC 5.07 (3.80-5.40) m/uL Hgb 15.2 (11.4-16.0) gm/dL Hct 46.8 H (34.0-46.0) % MCV 92.3 (80.0-100.0) fL MCH 30.0 (25.0-35.0) pg MCHC 32.5 (31.0-37.0) g/dL RDW 14.3 (11.5-15.5) % Plt Count 191 (150-450) k/uL MPV 7.3 Neutrophils % 91 % Lymphocytes % 3 % Monocytes % 4 % Eosinophils % 1 % Basophils % 0 % Neutrophils # 16.2 H (1.3-7.7) k/uL Lymphocytes # 0.6 L (1.0-4.8) k/uL Monocytes # 0.6 (0-1.0) k/uL Eosinophils # 0.2 (0-0.7) k/uL Basophils # 0.1 (0-0.2) k/uL Sodium 131 L (137-145) mmol/L Potassium 4.4 (3.5-5.1) mmol/L Chloride 89 L (98-107) mmol/L Carbon Dioxide 36 H (22-30) mmol/L Anion Gap 6 mmol/L BUN 32 H (7-17) mg/dL Creatinine 0.93 (0.52-1.04) mg/dL Est GFR (CKD-EPI)AfAm 64 (>60 ml/min/1.73 sqM) Est GFR (CKD-EPI)NonAf 55 (>60 ml/min/1.73 sqM) Glucose 207 H (74-99) mg/dL Calcium 9.1 (8.4-10.2) mg/dL Magnesium 2.4 H (1.6-2.3) mg/dL Total Bilirubin 1.0 (0.2-1.3) mg/dL AST 26 (14-36) U/L ALT 32 (4-34) U/L Alkaline Phosphatase 58 (38-126) U/L Lactate Dehydrogenase 749 H (313-618) U/L Troponin I 0.013 (0.000-0.034) ng/mL C-Reactive Protein 2.4 H (<1.0) mg/dL NT-Pro-B Natriuret Pep pg/mL Total Protein 5.5 L (6.3-8.2) g/dL Albumin 3.3 L (3.5-5.0) g/dL 05/04/21 Range/Units 12:24 WBC (3.8-10.6) k/uL RBC (3.80-5.40) m/uL Hgb (11.4-16.0) gm/dL Hct (34.0-46.0) % MCV (80.0-100.0) fL MCH (25.0-35.0) pg MCHC (31.0-37.0) g/dL RDW (11.5-15.5) % Plt Count (150-450) k/uL MPV Neutrophils % % Lymphocytes % % Monocytes % % Eosinophils % % Basophils % % Neutrophils # (1.3-7.7) k/uL Lymphocytes # (1.0-4.8) k/uL Monocytes # (0-1.0) k/uL Eosinophils # (0-0.7) k/uL Basophils # (0-0.2) k/uL Sodium (137-145) mmol/L Potassium (3.5-5.1) mmol/L Chloride (98-107) mmol/L Carbon Dioxide (22-30) mmol/L Anion Gap mmol/L BUN (7-17) mg/dL Creatinine (0.52-1.04) mg/dL Est GFR (CKD-EPI)AfAm (>60 ml/min/1.73 sqM) Est GFR (CKD-EPI)NonAf (>60 ml/min/1.73 sqM) Glucose (74-99) mg/dL Calcium (8.4-10.2) mg/dL Magnesium (1.6-2.3) mg/dL Total Bilirubin (0.2-1.3) mg/dL AST (14-36) U/L ALT (4-34) U/L Alkaline Phosphatase (38-126) U/L Lactate Dehydrogenase (313-618) U/L Troponin I (0.000-0.034) ng/mL C-Reactive Protein (<1.0) mg/dL NT-Pro-B Natriuret Pep 9460 pg/mL Total Protein (6.3-8.2) g/dL Albumin (3.5-5.0) g/dL Disposition Clinical Impression: Atrial fibrillation with RVR, COVID, Dehydration, Shortness of breath Disposition: ADMITTED IP TO THIS HOSP Is patient prescribed a controlled substance at d/c from ED?: No Referrals: Phoenix Gutiérrez MD [Primary Care Provider] - 1-2 days Time of Disposition: 15:17
[2021-05-04] MEDS ORDERED: ACETAMINOPHEN TAB 500 MG TAB PO STA (12:33)
[2021-05-04 12:36] LABS: Basophils # (A) 0.1 k/uL (0-0.2); Basophils % (A) 0 %; Eosinophils # (A) 0.2 k/uL (0-0.7); Eosinophils % (A) 1 %; HCT 46.8 % (34.0-46.0); HGB 15.2 gm/dL (11.4-16.0); Lymphocytes # (A) 0.6 k/uL (1.0-4.8); Lymphocytes % (A) 3 %; MCHC 32.5 g/dL (31.0-37.0); MCV 92.3 fL (80.0-100.0); Mean Platelet Volume 7.3; Monocytes # (A) 0.6 k/uL (0-1.0); Monocytes % (A) 4 %; Neutrophils # (A) 16.2 k/uL (1.3-7.7); Neutrophils % (A) 91 %; Platelet Count 191 k/uL (150-450); RBC 5.07 m/uL (3.80-5.40); RDW 14.3 % (11.5-15.5); WBC 17.8 k/uL (3.8-10.6)
[2021-05-04 12:51] LABS: Albumin 3.3 g/dL (3.5-5.0); C Reactive Protein 2.4 mg/dL (<1.0); Calcium 9.1 mg/dL (8.4-10.2); Magnesium 2.4 mg/dL (1.6-2.3); Potassium 4.4 mmol/L (3.5-5.1); Total Protein 5.5 g/dL (6.3-8.2)
--- NOTE | 2021-05-04 12:52 | XR ---
EXAMINATION TYPE: XR chest 2V DATE OF EXAM: 05/04/2021 COMPARISON: Chest x-ray 04/27/2021, CT chest 07/17/2018 HISTORY: Cough, chest congestion, suspected Covid 19 pneumonia TECHNIQUE: Frontal and lateral views of the chest are obtained. FINDINGS: Patient is rotated. There are overlying artifacts. There is a generator in the left pectora l region, leads in right atrium and ventricle. There is no focal air space opacity, pleural effusion, or pneumothorax seen. Thickened fissure on the left, atelectatic or scarring lingula change is slip tender dionna Central vascularity is prominent as are the lung volumes. The aorta is dense, there are coronary artery calcifications. The cardiac silhouette size is stable accounting for differences in technique. There are prominent epicardial fat pads. Retrocardiac lucency is consistent with small hiatal hernia . Left shoulder is high riding greater than right suggesting chronic rotator cuff tear. The osseous s tructures are intact. IMPRESSION: No acute cardiopulmonary process. Additional findings above.
[2021-05-04] MEDS ORDERED: ALBUTEROL HFA INHALER INHALATION STA (12:57)
[2021-05-04] MEDS ORDERED: FUROSEMIDE 10 MG/ML 4 ML VIAL IV STA (13:58)
[2021-05-04] MEDS ORDERED: NALOXONE 0.4 MG/ML 1 ML VIAL IV PRN (15:19)
[2021-05-04] MEDS ORDERED: BUDESONIDE 1 MG/2 ML NEBU INHALATION PRN (15:21)
[2021-05-04] MEDS ORDERED: ALBUTEROL HFA INHALER INHALATION PRN (15:23)
[2021-05-04] MEDS ORDERED: RISEDRONATE SODIUM 35 MG PO SCH (15:30)
[2021-05-04] MEDS: SODIUM CHLORIDE 0.9% 1,000 ML IV SCH (16:05)
[2021-05-04] MEDS: DILTIAZEM 125 MG in SODIUM CHLORIDE 0.9% 100 ML IV SCH ×2 (16:10→17:42)
[2021-05-04] MEDS: DIGOXIN 125 MCG TAB PO SCH (16:46)
[2021-05-04] MEDS ORDERED: DILTIAZEM DRIP BOLUS FROM BAG 1 MG SOLN IV ONE (16:48)
[2021-05-04] MEDS: MIDODRINE 5 MG TAB PO SCH (16:55)
[2021-05-04] MEDS: POTASSIUM CHLORIDE ER 10 MEQ TAB.ER.PRT PO SCH (16:56)
[2021-05-04] MEDS: metFORMIN 500 MG TAB PO SCH (16:56)
[2021-05-04] MEDS: ALBUTEROL HFA INHALER INHALATION SCH ×2 (17:28→20:59)
[2021-05-04] MEDS ORDERED: FAMOTIDINE 20 MG TAB PO SCH (17:30)
[2021-05-04] MEDS: SYMBICORT 160-4.5 MCG INHALER INHALATION SCH (20:59)
[2021-05-04] MEDS: ATORVASTATIN 20 MG TAB PO SCH (21:06)
[2021-05-04] MEDS: ASCORBIC ACID 500 MG TAB PO SCH (21:06)
[2021-05-04] MEDS: APIXABAN 2.5 MG TABLET PO SCH (21:06)
[2021-05-04] MEDS: MELATONIN 5 MG TABLET PO SCH (21:07)
[2021-05-05] MEDS: ALBUTEROL HFA INHALER INHALATION SCH ×5 (04:17→19:07)
[2021-05-05] MEDS ORDERED: IPRATROPIUM-ALBUTEROL 3 ML NEB INHALATION PRN (04:42)
[2021-05-05] MEDS ORDERED: FUROSEMIDE 10 MG/ML 4 ML VIAL IV STA (04:42)
[2021-05-05] MEDS ORDERED: methylPREDNISolone SOD SUCCI 40 MG/ML 1 ML VIAL IV SCH (04:44)
--- NOTE | 2021-05-05 05:11 | XR ---
EXAMINATION TYPE: XR chest 1V portable DATE OF EXAM: 05/05/2021 COMPARISON: Yesterday HISTORY: Short of breath TECHNIQUE: FINDINGS: There is mild pulmonary congestion. There is pulmonary hyperinflation with flattening of th e diaphragm. There is left x-ray pacemaker. There are chest leads. There is no definite pleural effus ion. Thoracic aorta is atheromatous. IMPRESSION: COPD. Mild pulmonary congestion. No pleural fluid seen to suggest heart failure.
[2021-05-05 06:37] LABS: Glucose,Whole Blood 129 mg/dL (75-99)
[2021-05-05] MEDS: MIDODRINE 5 MG TAB PO SCH ×3 (06:42→17:29)
[2021-05-05] MEDS: FAMOTIDINE 20 MG TAB PO SCH (06:42)
[2021-05-05] MEDS: POTASSIUM CHLORIDE ER 10 MEQ TAB.ER.PRT PO SCH ×2 (06:42→17:30)
[2021-05-05] MEDS: PANTOPRAZOLE 40 MG TABLET PO SCH (06:43)
[2021-05-05] MEDS: SYMBICORT 160-4.5 MCG INHALER INHALATION SCH ×2 (07:58→19:08)
[2021-05-05] MEDS ORDERED: FUROSEMIDE 20 MG TAB PO SCH (08:00)
[2021-05-05] MEDS ORDERED: BUDESONIDE 1 MG/2 ML NEBU INHALATION SCH (08:00)
[2021-05-05] MEDS: TIOTROPIUM 2.5 MCG INHALER INHALATION SCH (08:03)
[2021-05-05] MEDS: methylPREDNISolone SOD SUCCI 125 MG/2 ML VIAL IV SCH ×3 (08:09→22:57)
[2021-05-05] MEDS: FUROSEMIDE 10 MG/ML 4 ML VIAL IV SCH ×3 (08:09→22:57)
[2021-05-05] MEDS: ASCORBIC ACID 500 MG TAB PO SCH ×2 (08:09→21:58)
[2021-05-05] MEDS: APIXABAN 2.5 MG TABLET PO SCH ×2 (08:09→21:58)
[2021-05-05] MEDS: ISOSORBIDE MONONITRATE ER 15 MG TAB PO SCH (08:10)
[2021-05-05] MEDS: DILTIAZEM CD 180 MG CAP.ER.24H PO SCH (08:10)
[2021-05-05] MEDS: CHOLECALCIFEROL 25 MCG (1000 IU) TABLET PO SCH (08:10)
[2021-05-05] MEDS: ZINC SULFATE 220 MG CAP PO SCH (08:10)
[2021-05-05 08:21] LABS: Basophils % (A) 0 %; Eosinophils # (A) 0.1 k/uL (0-0.7); Eosinophils % (A) 1 %; Lymphocytes # (A) 0.3 k/uL (1.0-4.8); Lymphocytes % (A) 1 %; MCH 30.6 pg (25.0-35.0); MCHC 33.4 g/dL (31.0-37.0); MCV 91.5 fL (80.0-100.0); Mean Platelet Volume 7.5; Monocytes # (A) 0.6 k/uL (0-1.0); Monocytes % (A) 3 %; Neutrophils # (A) 18.9 k/uL (1.3-7.7); Neutrophils % (A) 95 %; Platelet Count 201 k/uL (150-450); RBC 4.92 m/uL (3.80-5.40); WBC 19.9 k/uL (3.8-10.6)
[2021-05-05 08:36] LABS: Calcium 8.4 mg/dL (8.4-10.2); Potassium 3.7 mmol/L (3.5-5.1); Total Bilirubin 1.4 mg/dL (0.2-1.3); Total Protein 5.1 g/dL (6.3-8.2)
[2021-05-05] MEDS ORDERED: METOPROLOL TARTRATE 50 MG TAB PO SCH (09:00)
[2021-05-05] MEDS ORDERED: FUROSEMIDE 10 MG/ML 4 ML VIAL IV SCH (09:00)
[2021-05-05 11:16] LABS: C Reactive Protein 7.7 mg/dL (<1.0)
[2021-05-05] MEDS: Dapagliflozin Propanediol [Farxiga] PO SCH (11:40)
[2021-05-05] MEDS: LOSARTAN 25 MG TAB PO SCH (11:40)
[2021-05-05] MEDS: SODIUM CHLORIDE 0.9% 1,000 ML IV SCH (11:40)
--- NOTE | 2021-05-05 12:08 | P.CRDCN ---
History of Present Illness Consult date: 05/05/21 History of present illness: CHIEF COMPLAINT: A. ralph with RVR HISTORY OF PRESENT ILLNESS: This is a 89 year old female with a past medical history significant for chronic persistent atrial fibrillation, COPD with home oxygen, hypertension, sick sinus syndrome with dual-chamber pacemaker insertion, and former nicotine dependence. Patient follows in the office with Dr. Pina. We have been asked to see the patient in consultation for atrial fibrillation. Patient was just discharged home the hospital on 05/01/2021 after being diagnosed with Covid. Patient presented back to the hospital with shortness of breath. Patient was also found to be in atrial fibrillation with RVR. She was started on a cardizem drip. She remains in atrial fibrillation with a heart rate in the 130s. DIAGNOSTICS: EKG reveals atrial fibrillation with RVR Chest xray no acute cardiopulmonary process Laboratory data: WBC 19.9. Hemoglobin 15.0. Platelet count 201. D-dimer 0.25. Sodium 131. Potassium 3.7. BUN 27. Creatinine 0.85. Magnesium 2.4. ProBNP 9460. Troponin 0.013. Current home cardiac medications include metoprolol tartrate 100 mg twice a day, losartan 25 mg daily, Imdur 15 mg daily, Lasix 20 mg twice a day, digoxin 62.5 g Tuesday to tuesday, Lipitor 20 mg daily, and Eliquis 2.5 mg twice a day Echocardiogram completed in January 2021 reveals ejection fraction 55-60%, mild to moderate aortic regurgitation, mild aortic stenosis, mild to moderate mitral regurgitation, [id number] tricuspid regurgitation and [id number] pulmonary hypertension REVIEW OF SYSTEMS: Thorough review of systems not completed secondary to limited evaluation/examin ation and due to Covid19 PHYSICAL EXAM: Thorough physical exam not completed secondary to limited evaluation/examination and due to Covid19 ASSESSMENT: Shortness of breath Covid 19 Chronic persistent atrial fibrillation with RVR Acute on chronic diastolic congestive heart failure COPD with home o2 Hypertension Sick sinus syndrome s/p dual chamber pacemaker [place] 2018 Former nicotine dependence PLAN: No need to repeat echocardiogram as this was performed in January 2021 Resume home cardiac medications including Digoxin, Cardizem, and metoprolol Continue telemetry monitoring Agreeable to IV diuresis Accurate I&O Daily weight Monitor kidney function Further recommendations pending patient course Nurse practitioner note has been reviewed by physician. Signing provider agrees with the documented findings, assessment, and plan of care. Past Medical History Past Medical History: Atrial Fibrillation, Cancer, Heart Failure, COPD, Diabetes Mellitus, GERD/Reflux, Hyperlipidemia, Hypertension, Osteoarthritis (OA) Additional Past Medical History / Comment(s): skin cancer on scalp, macular degeneration History of Any Multi-Drug Resistant Organisms: None Reported Past Surgical History: Hernia Repair, Pacemaker, Tonsillectomy Additional Past Surgical History / Comment(s): skin cancer removed from scalp, andrew cataracts Past Anesthesia/Blood Transfusion Reactions: No Reported Reaction Type of Cardiac Device: Permanent Pacemaker Device Placement Date:: 2017 Past Psychological History: No Psychological Hx Reported Additional Psychological History / Comment(s): Pt resides alone. She uses a wheelchair if she goes out shopping. She is on home oxygen at 2L via nasal cannula. She has a nebulizer. She drives. Patient utilizes home healthcare 2 days/week, has cleaning lady that comes to the house. Smoking Status: Former smoker Past Alcohol Use History: Occasional Additional Past Alcohol Use History / Comment(s): Pt started smoking in 1978 and quit in 1998. She drinks rarely. Past Drug Use History: None Reported - Past Family History Father Family Medical History: Coronary Artery Disease (CAD) Additional Family Medical History / Comment(s): Father at age 91 with history of heart disease. Mother Family Medical History: Cancer Additional Family Medical History / Comment(s): Mother at age 87 from pancreatic cancer. Brother(s) Additional Family Medical History / Comment(s): Patient has 1 brother that at age 93 from liver cancer. Sister(s) Additional Family Medical History / Comment(s): Patient has 2 sisters with no major medical problems. Daughter(s) Additional Family Medical History / Comment(s): Patient has a total of 4 children, 3 daughters and 1 son. One daughter at a young age and a motor vehicle accident. Medications and Allergies Home Medications Medication Instructions Recorded Confirmed Type Apixaban [Eliquis] 2.5 mg PO BID tablet 08/11/17 05/04/21 Rx Famotidine [Pepcid] 20 mg PO AC-BID 10/23/17 05/04/21 History Albuterol Inhaler [Ventolin Hfa 1 - 2 puff INHALATION RT-QID PRN 06/16/20 05/04/21 History Inhaler] Atorvastatin [Lipitor] 20 mg PO HS 06/16/20 05/04/21 History Digoxin [Digitek] 62.5 mcg PO MOTUWETHFRSA 06/16/20 05/04/21 History Isosorbide Mononitrate ER [Imdur] 15 mg PO DAILY 06/16/20 05/04/21 History Omeprazole 20 mg PO DAILY 06/16/20 05/04/21 History Risedronate Sodium [Risedronate 35 mg PO MO 06/16/20 05/04/[address]] Calcium Carbonate [Calcium] 600 mg PO AC-LUNCH 01/21/21 05/04/21 History Cyanocobalamin (Vitamin B-12) 1,000 mcg PO AC-LUNCH 01/21/21 05/04/21 History [Vitamin B-12] Dapagliflozin Propanediol [Farxiga] 5 mg PO DAILY 01/21/21 05/04/21 History Ipratropium-Albuterol Nebulize 3 ml INHALATION RT-QID 01/21/21 05/04/21 History [Duoneb 0.5 mg-3 mg/3 ml Soln] Losartan [Cozaar] 25 mg PO DAILY 01/21/21 05/04/21 History Magnesium Oxide [Mag-Ox] 400 mg PO AC-LUNCH 01/21/21 05/04/21 History Melatonin 5 mg PO HS 01/21/21 05/04/21 History metFORMIN HCL [Glucophage] 1,000 mg PO AC-SUPPER 01/21/21 05/04/21 History Budesonide-Formot 160-4.5 Mcg 2 puff INHALATION RT-BID #1 puff 01/24/21 05/04/21 Rx [Symbicort 160-4.5 Mcg Inhaler] Metoprolol Tartrate [Lopressor] 100 mg PO BID #180 tab 01/24/21 05/04/21 Rx Budesonide [Pulmicort] 1 mg INHALATION RT-BID PRN 04/27/21 05/04/21 History Ascorbic Acid [Vitamin C] 500 mg PO BID tab 05/01/21 05/04/21 Rx Cholecalciferol [Vitamin D3 (25 50 mcg PO DAILY tablet 05/01/21 05/04/21 Rx Mcg = 1000 Iu)] Furosemide [Lasix] 20 mg PO BID@0800,1200 #0 05/01/21 05/04/21 Rx Zinc Sulfate [Orazinc] 220 mg PO DAILY cap 05/01/21 05/04/21 Rx predniSONE 10 mg PO DAILY #0 05/01/21 05/04/21 Rx Potassium Chloride [Potassium 10 meq PO AC-BID 05/04/21 05/04/21 History Chloride ER] predniSONE See Taper PO DIRECTED 05/04/21 05/04/21 History Allergies Allergy/AdvReac Type Severity Reaction Status Date / Time Sulfa (Sulfonamide Allergy Unknown Verified 05/04/21 14:19 Antibiotics) Childhood shellfish derived [Shellfish] AdvReac Nausea & Verified 05/04/21 14:19 Vomiting & Diarrhea Physical Exam Vitals: Vital Signs Temp Pulse Pulse Resp BP BP Pulse Ox 05/05/21 08:00 97.3 F L 120 H 28 H 118/70 05/05/21 07:59 96 05/05/21 05:16 129 H 05/05/21 05:10 120 H 109 H 28 H 128/74 05/05/21 05:09 96 05/05/21 04:39 130 H 30 H 178/97 90 L 05/05/21 04:32 93 L 05/05/21 03:00 95 05/05/21 01:56 101 H 20 05/05/21 00:00 97.9 F 100 20 123/86 96 05/04/21 22:42 97 05/04/21 21:30 98.7 F 110 H 20 126/80 97 05/04/21 21:05 98.4 F 100 18 108/97 99 05/04/21 18:11 89 20 92/56 100 05/04/21 17:36 122 H 20 90/60 100 05/04/21 16:22 117 H 20 89/64 100 05/04/21 14:19 98.1 F 117 H 20 117/87 100 05/04/21 13:31 111 H 20 100 Intake and Output 05/04/21 05/05/21 05/05/21 22:59 06:59 14:59 Intake Total 140 Output Total 50 50 Balance -50 90 Intake: Oral 140 Output: Urine 50 50 Other: Voiding Method Bedside Commode Bedside Commode Weight 74.843 kg 75 kg Results 05/05/21 07:35 05/05/21 07:54 Cardiac Enzymes 05/04/21 05/04/21 05/05/21 Range/Units 12:24 12:24 07:54 AST 26 20 (14-36) U/L Lactate Dehydrogenase 749 H 839 H (313-618) U/L Troponin I 0.013 (0.000-0.034) ng/mL CBC 05/04/21 05/05/21 Range/Units 12:24 07:35 WBC 17.8 H 19.9 H (3.8-10.6) k/uL RBC 5.07 4.92 (3.80-5.40) m/uL Hgb 15.2 15.0 (11.4-16.0) gm/dL Hct 46.8 H 45.0 (34.0-46.0) % Plt Count 191 201 (150-450) k/uL Comprehensive Metabolic Panel 05/04/21 05/05/21 Range/Units 12:24 07:54 Sodium 131 L 131 L (137-145) mmol/L Potassium 4.4 3.7 (3.5-5.1) mmol/L Chloride 89 L 89 L (98-107) mmol/L Carbon Dioxide 36 H 36 H (22-30) mmol/L BUN 32 H 27 H (7-17) mg/dL Creatinine 0.93 0.85 (0.52-1.04) mg/dL Glucose 207 H 145 H (74-99) mg/dL Calcium 9.1 8.4 (8.4-10.2) mg/dL AST 26 20 (14-36) U/L ALT 32 25 (4-34) U/L Alkaline Phosphatase 58 56 (38-126) U/L Total Protein 5.5 L 5.1 L (6.3-8.2) g/dL Albumin 3.3 L 3.0 L (3.5-5.0) g/dL Current Medications Generic Name Dose Route Start Last Admin Trade Name Freq PRN Reason Stop Dose Admin Albuterol Sulfate 2 puff 05/04/21 16:00 05/05/21 07:58 Albuterol Hfa Inhaler INHALATION 2 puff RT-QID RODRICK Administration Albuterol Sulfate 1 - 2 puff 05/04/21 15:23 Albuterol Hfa Inhaler INHALATION RT-QID PRN Shortness Of Breath Albuterol/Ipratropium 3 ml 05/05/21 04:42 05/05/21 05:07 Ipratropium-Albuterol 3 Ml Neb INHALATION 3 ml RT-QID PRN Administration Shortness Of Breath Or Wheezing Apixaban 2.5 mg 05/04/21 21:00 05/05/21 08:09 Apixaban 2.5 Mg Tablet PO 2.5 mg BID RODRICK Administration Protocol Ascorbic Acid 500 mg 05/04/21 21:00 05/05/21 08:09 Ascorbic Acid 500 Mg Tab PO 500 mg BID RODRICK Administration Atorvastatin Calcium 20 mg 05/04/21 21:00 05/04/21 21:06 Atorvastatin 20 Mg Tab PO 20 mg HS RODRICK Administration Budesonide/Formoterol Fumarate 2 puff 05/04/21 20:00 05/05/21 07:58 Symbicort 160-4.5 Mcg Inhaler INHALATION 2 puff RT-BID RODRICK Administration Calcium Carbonate/Glycine 500 mg 05/05/21 12:30 Calcium Carbonate 500 Mg Chewable PO AC-LUNCH [facility] Cholecalciferol 50 mcg 05/05/21 09:00 05/05/21 08:10 Cholecalciferol 25 Mcg (1000 Iu) Tablet PO 50 mcg DAILY RODRICK Administration Cyanocobalamin 1,000 mcg 05/05/21 12:30 Cyanocobalamin 500 Mcg Tab PO AC-LUNCH [facility] Digoxin 62.5 mcg 05/04/21 15:30 05/04/21 16:46 Digoxin 125 Mcg Tab PO Not Given MOTUWETHFRSA [facility] Diltiazem HCl 360 mg 05/05/21 09:00 05/05/21 08:10 Diltiazem Cd 180 Mg Cap.Er.24h PO 360 mg DAILY RODRICK Administration Famotidine 20 mg 05/05/21 07:30 05/05/21 06:42 Famotidine 20 Mg Tab PO 20 mg AC-BRKFST RODRICK Administration Furosemide 40 mg 05/05/21 08:00 05/05/21 08:09 Furosemide 10 Mg/Ml 4 Ml Vial IV 40 mg Q8HR RODRICK Administration Sodium Chloride 1,000 mls @ 50 mls/hr 05/04/21 15:30 05/05/21 11:40 Saline 0.9% IV Not Given .Q20H RODRICK Isosorbide Mononitrate 15 mg 05/05/21 09:00 05/05/21 08:10 Isosorbide Mononitrate Er 15 Mg Tab PO 15 mg DAILY RODRICK Administration Losartan Potassium 25 mg 05/05/21 09:00 05/05/21 11:40 Losartan 25 Mg Tab PO Not Given DAILY RODRICK Magnesium Oxide 400 mg 05/05/21 12:30 Magnesium Oxide 400 Mg Tab PO AC-LUNCH RODRICK Melatonin 5 mg 05/04/21 21:00 05/04/21 21:07 Melatonin 5 Mg Tablet PO 5 mg HS RODRICK Administration Metformin HCl 1,000 mg 05/04/21 17:30 05/04/21 16:56 Metformin 500 Mg Tab PO 1,000 mg AC-SUPPER RODRICK Administration Methylprednisolone Sodium Succinate 60 mg 05/05/21 08:00 05/05/21 08:09 Methylprednisolone Sod Succi 125 Mg/2 Ml Vial IV 60 mg Q8HR RODRICK Administration Metoprolol Tartrate 100 mg 05/05/21 09:00 Metoprolol Tartrate 50 Mg Tab PO BID RODRICK Midodrine 10 mg 05/04/21 17:30 05/05/21 06:42 Midodrine 5 Mg Tab PO Not Given AC-TID RODRICK Naloxone HCl 0.2 mg 05/04/21 15:19 Naloxone 0.4 Mg/Ml 1 Ml Vial IV Q2M PRN Opioid Reversal Dapagliflozin 5 mg 05/05/21 09:00 05/05/21 11:40 Propanediol [Farxiga PO Not Given ] DAILY RODRICK Pantoprazole Sodium 40 mg 05/05/21 07:30 05/05/21 06:43 Pantoprazole 40 Mg Tablet PO 40 mg AC-BRKFST RODRICK Administration Potassium Chloride 10 meq 05/04/21 17:30 05/05/21 06:42 Potassium Chloride Er 10 Meq Tab.Er.Prt PO 10 meq AC-BID RODRICK Administration Tiotropium [place] 2 puff 05/05/21 08:00 05/05/21 08:03 Tiotropium 2.5 Mcg Inhaler INHALATION 2 puff RT-DAILY RODRICK Administration Zinc Sulfate 220 mg 05/05/21 09:00 05/05/21 08:10 Zinc Sulfate 220 Mg Cap PO 220 mg DAILY RODRICK Administration Intake and Output 05/04/21 05/05/21 05/05/21 22:59 06:59 14:59 Intake Total 140 Output Total 50 50 Balance -50 90 Intake: Oral 140 Output: Urine 50 50 Other: Voiding Method Bedside Commode Bedside Commode Weight 74.843 kg 75 kg 05/05/21 07:35 05/05/21 07:54
[2021-05-05 12:17] LABS: Glucose,Whole Blood 213 mg/dL (75-99)
[2021-05-05] MEDS: METOPROLOL TARTRATE 50 MG TAB PO SCH ×2 (12:59→21:58)
[2021-05-05] MEDS: MAGNESIUM OXIDE 400 MG TAB PO SCH (12:59)
[2021-05-05] MEDS: CALCIUM CARBONATE 500 MG CHEWABLE PO SCH (12:59)
[2021-05-05] MEDS: CYANOCOBALAMIN 500 MCG TAB PO SCH (12:59)
--- NOTE | 2021-05-05 14:14 | P.CNPUL ---
History of Present Illness Consult date: 05/05/21 Requesting physician: Phoenix Gutiérrez Reason for consult: dyspnea Chief complaint: Shortness of breath History of present illness: 89-year-old white female patient who follows with Dr. 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 Patient was treated with steroids, bronchodilators, diuretics, and she has completed a course of Remdesivir. She was feeling better, breathing much easier, she was off BiPAP support, she was discharged home on 05/01/2021. On 05/04/2021 patient came to the emergency department per EMS for evaluation of worsening shortness of breath that she started experiencing at nighttime. Patient felt that her heart was racing, she was found to be in A. fib with RVR in the emergency department. He was doing her breathing treatments but it was not helping. She had a low-grade fever in the emergency department. Lab work on admission showed leukocytosis with a whit e count of 17.8, however patient was completing prednisone taper at home, CMP revealed mild dehydration, otherwise it was unremarkable. Troponin was within normal limits, proBNP was elevated at 9460. Chest x-ray showed no acute cardiopulmonary process. She was very dyspneic, and bronchospastic, in the emergency department she was started on IV Lasix 40 mg every 8 hours, she was started on a Cardizem infusion for rate control, she takes Eliquis for chronic anticoagulation at home, she was started on nebulized bronchodilators, and IV steroids. Follow-up chest x-ray today showing mild pulmonary congestion, but no pleural fluid to suggest heart failure. She is breathing easier, she was placed on Airvo at 50 L and FiO2 34%, her pulse ox is 95-96%. Still mildly wheezy and dyspneic, but no acute distress. Overall is feeling better. Review of Systems All systems: negative Constitutional: Denies chills, Denies fever Eyes: denies blurred vision, denies pain Ears, nose, mouth and throat: Denies headache, Denies sore throat Cardiovascular: Reports dyspnea on exertion, Reports irregular heart beat, Reports orthopnea, Reports shortness of breath, Denies chest pain Respiratory: Reports dyspnea, Reports home oxygen, Denies cough Gastrointestinal: Denies abdominal pain, Denies diarrhea, Denies nausea, Denies vomiting Genitourinary: Denies dysuria, Denies hematuria Musculoskeletal: Denies myalgias Integumentary: Denies pruritus, Denies rash Neurological: Denies numbness, Denies weakness Psychiatric: Denies anxiety, Denies depression Endocrine: Denies fatigue, Denies weight change Past Medical History Past Medical History: Atrial Fibrillation, Cancer, Heart Failure, COPD, Diabetes Mellitus, GERD/Reflux, Hyperlipidemia, Hypertension, Osteoarthritis (OA) Additional Past Medical History / Comment(s): skin cancer on scalp, macular degeneration History of Any Multi-Drug Resistant Organisms: None Reported Past Surgical History: Hernia Repair, Pacemaker, Tonsillectomy Additional Past Surgical History / Comment(s): skin cancer removed from scalp, andrew cataracts Past Anesthesia/Blood Transfusion Reactions: No Reported Reaction Type of Cardiac Device: Permanent Pacemaker Device Placement Date:: 2017 Past Psychological History: No Psychological Hx Reported Additional Psychological History / Comment(s): Pt resides alone. She uses a wheelchair if she goes out shopping. She is on home oxygen at 2L via nasal cannula. She has a nebulizer. She drives. Patient utilizes home healthcare 2 days/week, has cleaning lady that comes to the house. Smoking Status: Former smoker Past Alcohol Use History: Occasional Additional Past Alcohol Use History / Comment(s): Pt started smoking in 1978 and quit in 1998. She drinks rarely. Past Drug Use History: None Reported - Past Family History Father Family Medical History: Coronary Artery Disease (CAD) Additional Family Medical History / Comment(s): Father at age 91 with history of heart disease. Mother Family Medical History: Cancer Additional Family Medical History / Comment(s): Mother at age 87 from pancreatic cancer. Brother(s) Additional Family Medical History / Comment(s): Patient has 1 brother that at age 93 from liver cancer. Sister(s) Additional Family Medical History / Comment(s): Patient has 2 sisters with no major medical problems. Daughter(s) Additional Family Medical History / Comment(s): Patient has a total of 4 children, 3 daughters and 1 son. One daughter at a young age and a motor vehicle accident. Medications and Allergies Home Medications Medication Instructions Recorded Confirmed Type Apixaban [Eliquis] 2.5 mg PO BID tablet 08/11/17 05/04/21 Rx Famotidine [Pepcid] 20 mg PO AC-BID 10/23/17 05/04/21 History Albuterol Inhaler [Ventolin Hfa 1 - 2 puff INHALATION RT-QID PRN 06/16/20 05/04/21 History Inhaler] Atorvastatin [Lipitor] 20 mg PO HS 06/16/20 05/04/21 History Digoxin [Digitek] 62.5 mcg PO MOTUWETHFRSA 06/16/20 05/04/21 History Isosorbide Mononitrate ER [Imdur] 15 mg PO DAILY 06/16/20 05/04/21 History Omeprazole 20 mg PO DAILY 06/16/20 05/04/21 History Risedronate Sodium [Risedronate 35 mg PO MO 06/16/20 05/04/[address]] Calcium Carbonate [Calcium] 600 mg PO AC-LUNCH 01/21/21 05/04/21 History Cyanocobalamin (Vitamin B-12) 1,000 mcg PO AC-LUNCH 01/21/21 05/04/21 History [Vitamin B-12] Dapagliflozin Propanediol [Farxiga] 5 mg PO DAILY 01/21/21 05/04/21 History Ipratropium-Albuterol Nebulize 3 ml INHALATION RT-QID 01/21/21 05/04/21 History [Duoneb 0.5 mg-3 mg/3 ml Soln] Losartan [Cozaar] 25 mg PO DAILY 01/21/21 05/04/21 History Magnesium Oxide [Mag-Ox] 400 mg PO AC-LUNCH 01/21/21 05/04/21 History Melatonin 5 mg PO HS 01/21/21 05/04/21 History metFORMIN HCL [Glucophage] 1,000 mg PO AC-SUPPER 01/21/21 05/04/21 History Budesonide-Formot 160-4.5 Mcg 2 puff INHALATION RT-BID #1 puff 01/24/21 05/04/21 Rx [Symbicort 160-4.5 Mcg Inhaler] Metoprolol Tartrate [Lopressor] 100 mg PO BID #180 tab 01/24/21 05/04/21 Rx Budesonide [Pulmicort] 1 mg INHALATION RT-BID PRN 04/27/21 05/04/21 History Ascorbic Acid [Vitamin C] 500 mg PO BID tab 05/01/21 05/04/21 Rx Cholecalciferol [Vitamin D3 (25 50 mcg PO DAILY tablet 05/01/21 05/04/21 Rx Mcg = 1000 Iu)] Furosemide [Lasix] 20 mg PO BID@0800,1200 #0 05/01/21 05/04/21 Rx Zinc Sulfate [Orazinc] 220 mg PO DAILY cap 05/01/21 05/04/21 Rx predniSONE 10 mg PO DAILY #0 05/01/21 05/04/21 Rx Potassium Chloride [Potassium 10 meq PO AC-BID 05/04/21 05/04/21 History Chloride ER] predniSONE See Taper PO DIRECTED 05/04/21 05/04/21 History Allergies Allergy/AdvReac Type Severity Reaction Status Date / Time Sulfa (Sulfonamide Allergy Unknown Verified 05/04/21 14:19 Antibiotics) Childhood shellfish derived [Shellfish] AdvReac Nausea & Verified 05/04/21 14:19 Vomiting & Diarrhea Physical Exam Vitals: Vital Signs Temp Pulse Pulse Resp BP BP Pulse Ox 05/05/21 12:04 95 05/05/21 08:00 97.3 F L 120 H 28 H 118/70 05/05/21 07:59 96 05/05/21 05:16 129 H 05/05/21 05:10 120 H 109 H 28 H 128/74 05/05/21 05:09 96 05/05/21 04:39 130 H 30 H 178/97 90 L 05/05/21 04:32 93 L 05/05/21 03:00 95 05/05/21 01:56 101 H 20 05/05/21 00:00 97.9 F 100 20 123/86 96 05/04/21 22:42 97 05/04/21 21:30 98.7 F 110 H 20 126/80 97 05/04/21 21:05 98.4 F 100 18 108/97 99 05/04/21 18:11 89 20 92/56 100 05/04/21 17:36 122 H 20 90/60 100 05/04/21 16:22 117 H 20 89/64 100 05/04/21 14:19 98.1 F 117 H 20 117/87 100 Intake and Output 05/04/21 05/05/21 05/05/21 22:59 06:59 14:59 Intake Total 140 Output Total 50 50 Balance -50 90 Intake: Oral 140 Output: Urine 50 50 Other: Voiding Method Bedside Commode Bedside Commode Weight 74.843 kg 75 kg GENERAL EXAM: Alert, 89-year-old white female patient on a low at 50 L and FiO2 of 34%, mildly dyspneic, but no acute distress, actually improved since admission, patient easily arouses, and answers questions appropriately. comfortable in no apparent distress. HEAD: Normocephalic/atraumatic. EYES: Normal reaction of pupils, equal size. Conjunctiva pink, sclera white. NOSE: Clear with pink turbinates. THROAT: No erythema or exudates. NECK: No masses, no JVD, no thyroid enlargement, no adenopathy. CHEST: No chest wall deformity. Symmetrical expansion. LUNGS: Equal air entry with diminished breath sounds mild crackles and wheezes CVS: Irregular rate and rhythm, normal S1 and S2, no gallops, no murmurs, no rubs ABDOMEN: Soft, nontender. No hepatosplenomegaly, normal bowel sounds, no guarding or rigidity. EXTREMITIES: No clubbing, no edema, no cyanosis, 2+ pulses and upper and lower extremities. MUSCULOSKELETAL: Muscle strength and tone normal. SPINE: No scoliosis or deformity SKIN: No rashes CENTRAL NERVOUS SYSTEM: Alert and oriented -3. No focal deficits, tone is normal in all 4 extremities. PSYCHIATRIC: Alert and oriented -3. Appropriate affect. Intact judgment and insight. Results - Laboratory Findings CBC and BMP: 05/05/21 07:35 05/05/21 07:54 PT/INR, D-dimer D-Dimer 0.25 mg/L FEU (<0.60) 05/05/21 08:03 Abnormal lab findings: Abnormal Labs 05/04/21 05/04/21 05/05/21 12:24 12:24 06:35 WBC 17.8 H Hct 46.8 H Neutrophils # 16.2 H Lymphocytes # 0.6 L Sodium 131 L Chloride 89 L Carbon Dioxide 36 H BUN 32 H Glucose 207 H POC Glucose (mg/dL) 129 H Magnesium 2.4 H Total Bilirubin Lactate Dehydrogenase 749 H C-Reactive Protein 2.4 H Total Protein 5.5 L Albumin 3.3 L 05/05/21 05/05/21 05/05/21 07:35 07:54 12:16 WBC 19.9 H Hct Neutrophils # 18.9 H Lymphocytes # 0.3 L Sodium 131 L Chloride 89 L Carbon Dioxide 36 H BUN 27 H Glucose 145 H POC Glucose (mg/dL) 213 H Magnesium Total Bilirubin 1.4 H Lactate Dehydrogenase 839 H C-Reactive Protein 7.7 H Total Protein 5.1 L Albumin 3.0 L - Diagnostic Findings Chest x-ray: report reviewed, image reviewed Additional studies: EKG reviewed Assessment and Plan Plan: Assessment: #1. Acute on chronic dyspnea, multifactorial, related to acute exacerbation of COPD, and CHF with diastolic dysfunction and A. fib with RVR #2. A. fib with RVR #3. Recent hospitalization for COVID-19 infection, COPD and CHF exacerbation, discharged home on 05/01/2021. Patient is status post completed COVID-19 vaccination. Patient completed a course of Remdesivir while in the hospital and IV steroids, oral anticoagulation, and COVID-19 vitamins #4. Advanced COPD on home oxygen and maintenance dose prednisone #5. Chronic diastolic congestive heart failure #6. Former smoker, currently in remission, carries [id number] smoking history #7. Paroxysmal A. fib, on Eliquis #8. Benign essential hypertension #9. History of dual-chamber pacemaker insertion for history of sinus pauses #10. Moderate pulmonary hypertension Plan: Continue IV Solu-Medrol Continue diuretics Patient has completed a course of Remdesivir during her previous admission Continue oral anticoagulation in the form of Eliquis Rate control medications per cardiology May be placed on BiPAP support at bedtime and as needed during the day for worsening dyspnea or hypoxia Follow-up chest x-ray tomorrow Accurate intake and output Follow-up labs including electrolytes and renal profile I performed a history & physical examination of the patient and discussed their management with my nurse practitioner, Kenna Ervin. I reviewed the nurse practitioner's note and agree with the documented findings and plan of care. Lung sounds are positive for diffuse wheezes throughout the lung cotto. The findings and the impression was discussed with the patient. I attest to the documentation by the nurse practitioner. Time with Patient: Greater than 30
--- NOTE | 2021-05-05 15:19 | P.HPIM ---
History of Present Illness H&P Date: 05/04/21 Chief Complaint: A. ralph with RVR Chief Complaint: Acute hypoxemic respiratory failure due to Covid 19 pneumonia H&P Date: 05/04/2021 HISTORY OF PRESENT ILLNESS This is an 89-year old- female patient of mine with a previous medical history significant for hypertension and hypertensive cardiovascular disease, hyperlipidemia, Paroxysmal atrial fibrillation, moderate to severe COPD O2 depen dent and steroid dependent has been doing fine with her O2 and Nebulized treatment at home till recently where she found to be more short of breath with increased coughing despite using her Updraft treatment, was recently hospitalized at [facility] after she was diagnosed with COVID-19 kristal nix she did receive Solu-Medrol 60 mg IV push every 6 hours along with Remdesivir and she was discharged home on Tuesday patient was doing fine on Tuesday however on Tuesday developed to have an increased shortness breath associated with increased swelling in both lower extremities patient was sup posed to get Cardizem CD 360 mg for some reason was not called into her pharmacy, and she had stopped taking her Cardizem CD 240 she developed to have a significant atrial fibrillation with rapid ventricular response she became extreme short of breath , her daughter brought her to the emergency department at [facility] where she was found to have an acute diastolic heart failure she was started on Cardizem drip at 10 mg an hour, she was given Lasix 40 mg IV push every 8 hours, she was admitted to the hospital for acute diastolic heart failure patien had a chest x-ray that didn't show evidence of pulmonary vascular congestion and she was admitted to the hospital for evaluation and treatment by cardiology on Pulmonary consultation was obtained.t REVIEW OF SYSTEMS Constitutional: no fever no chills, no night sweats. No weight change. Reports weakness, Reports fatigue no lethargy. No daytime sleepiness. HEENT: No headache. No blurred vision or double vision, no loss of vision. No loss of Hearing, no ringing in the ears, no dizziness. No nasal drainage or congestion. No epistaxis. No sore throat, no loss of taste Lungs: Reports shortness of breath, Reports cough, positive for sputum production. Reports wheezing. Cardiovascular: No chest pain, mild lower extremity edema. positive for palpitations. No paroxysmal nocturnal dyspnea. No orthopnea. No lightheadedness or dizziness. No syncopal episodes. Abdominal: No abdominal pain. No nausea, vomiting. No diarrhea. No constipation. No bloody or tarry stools.. No loss of appetite. Genitourinary: No dysuria, increased frequency, urgency. No urinary retention. Musculoskeletal: No myalgias. positive for muscle weakness, no gait dysfunction, no frequent falls. No back pain. No neck pain. Integumentary: No wounds, no lesions. No rash or pruritus. No unusual bruisin g. No change in hair or nails. Neurologic: No aphasia. No facial droop. No change in mentation. No head injury. No headache. No paralysis. No paresthesia. Psychiatric: No depression. No anxiety. No mood swings. Endocrine: No abnormal blood sugars. MEDICAL HISTORY Hypertension, hypertensive cardiovascular disease Hyperlipidemia Paroxysmal atrial fibrillation Moderate to severe COPD O2 dependence with chronic hypoxic respiratory failure Macular degeneration Gastroesophageal reflux disease Generalized osteoarthritis steroid -induced osteoporosis. chronic diastolic heart failure. Corepulmonale. SURGICAL HISTORY Pacemaker implantation in 2018 Tonsillectomy Hernia repair Removal of skin cancer Bilateral cataract removal and intraocular lens implants SOCIAL HISTORY Patient states that she was a smoker less than a pack a day for 20-30 years and quit 10 years ago. She denies any illicit drug use or alcohol use. She currently lives at home alone. FAMILY HISTORY Father at age 91 with history of heart disease. Mother at age 87 from pancreatic cancer. Patient has 1 brother that at age 93 from liver cancer. Patient has 2 sisters with no major medical problems. Patient has a total of 4 children, 3 daughters and 1 son. One daughter at a young age and a motor vehicle accident. PHYSICAL EXAMINATION Gen: This is an 89-year-old female, lying down in bed in acute distress currently on BIPAP. HEENT: Head is atraumatic, normocephalic. Pupils equal, round. Sclerae is anicteric, mucous membranes of the mouth are somewhat dry. NECK: Supple. No JVD. No lymphadenopathy. No thyromegaly, decreased carotid upstrokes bilaterally. Chest: decrease breath sounds at the bases with few ronchi , minimal expiratory wheezes no chest wall tenderness minimal intercostal retractions. Heart: first heart sound is depressed second heart sound is normal there FLORY 2/6 located at the left sternal border, irregularly irregular due to atrial fibrillation. ABDOMEN: Soft, nontender, nondistended, positive bowel sounds, no hepatosplenomegaly. EXTREMITIES: +2 pedal edema. No calf tenderness. Dorsalis pedis +1 bilaterally. NEUROLOGICAL: Patient is awake, alert and oriented x3. Cranial nerves 2 through 12 are grossly intact muscle christopher 4 out of 5 in upper and lower extremities bilaterally., ASSESSMENT AND PLAN 1. Acute hypoxemic respiratory failure due acute diastolic heart failure. Lasix 40 mg IV push every 8 hours, continue with Cardizem drip at 10 g an hour, continue digoxin 62.5 mg orally once every day, continue metoprolol 100 mg orally twice every day, cardiology consultation. 2. Atrial fibrillation, paroxysmal. Patient currently in A. fib. Cardiology consult. Continue Digoxin 125 mcg orally daily, Cardizem CD 240 mg orally daily, Metoprolol 100 mg orally bid and Eliquis 2.5 mg orally bid. 3. Acute exacerbation of COPD with a prior history of COVID-19 pneumonia. Continue Solu-Medrol 60 mg IV push every 6 hours, DuoNeb 3 mL nebulization 4 times every day, Pulmicort 1 mg Patient twice every day, apply the patient oxygen at 3 L nasal cannula adjust for saturation 92-93%, pulmonary consultation. 4 .Hypertension and hypertensive cardiovascular disease. Continue Losartn 25 mg orally daily, Metoprolol 100 mg orally bid. 5. Hyperlipidemia. Continue Lipitor 20 mg orally daily. 6. Chronic diastolic heart failure. we will continue with Lasix 20 mg orally bid, Losartan 25 mg orally daily and Metoprolol 100 mg orally bid and Lasix 40 mg IV push every 8 hours. 7. 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 we will continue with above treatment. 8. GERD. we will continue with Protonix 40 mg orally daily and Pepcid 20 mg po bid 9. CAD. Continue with Metoprolol 100 mg orally bid, Lipitor 20 mg orally daily and Imdur 15 mg orally daily. 10. Diabetes mellitus type 2. we will continue with Metformin 1000 mg orally with supper and Farxiga 5 mg orally daily, we will start sliding scale insulin. 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 we will hold off Residronate. 12. DVT prophylaxis. Continue eliquis. 2.5 mg orally bid. 13. GI Prophylaxis. we will continue with protonix 40 mg orally daily and pepcid 20 mg orally bid Patient will be admitted to the hospital for a minimum of 2 night stay. DISCHARGE PLAN Home with home care most likely. Past Medical History Past Medical History: Atrial Fibrillation, Cancer, Heart Failure, COPD, GERD/Reflux, Hyperlipidemia, Hypertension, Osteoarthritis (OA) Additional Past Medical History / Comment(s): skin cancer on scalp, macular degeneration History of Any Multi-Drug Resistant Organisms: None Reported Past Surgical History: Hernia Repair, Pacemaker, Tonsillectomy Additional Past Surgical History / Comment(s): skin cancer removed from scalp, andrew cataracts Past Anesthesia/Blood Transfusion Reactions: No Reported Reaction Type of Cardiac Device: Permanent Pacemaker Device Placement Date:: 2017 Past Psychological History: No Psychological Hx Reported Smoking Status: Former smoker Past Alcohol Use History: Occasional Past Drug Use History: None Reported - Past Family History Father Family Medical History: Coronary Artery Disease (CAD) Additional Family Medical History / Comment(s): Father at age 91 with history of heart disease. Mother Family Medical History: Cancer Additional Family Medical History / Comment(s): Mother at age 87 from pancreatic cancer. Brother(s) Additional Family Medical History / Comment(s): Patient has 1 brother that at age 93 from liver cancer. Sister(s) Additional Family Medical History / Comment(s): Patient has 2 sisters with no major medical problems. Daughter(s) Additional Family Medical History / Comment(s): Patient has a total of 4 children, 3 daughters and 1 son. One daughter at a young age and a motor vehicle accident. Medications and Allergies Home Medications Medication Instructions Recorded Confirmed Type Apixaban [Eliquis] 2.5 mg PO BID tablet 08/11/17 05/04/21 Rx Famotidine [Pepcid] 20 mg PO AC-BID 10/23/17 05/04/21 History Albuterol Inhaler [Ventolin Hfa 1 - 2 puff INHALATION RT-QID PRN 06/16/20 05/04/21 History Inhaler] Atorvastatin [Lipitor] 20 mg PO HS 06/16/20 05/04/21 History Digoxin [Digitek] 62.5 mcg PO MOTUWETHFRSA 06/16/20 05/04/21 History Isosorbide Mononitrate ER [Imdur] 15 mg PO DAILY 06/16/20 05/04/21 History Omeprazole 20 mg PO DAILY 06/16/20 05/04/21 History Risedronate Sodium [Risedronate 35 mg PO MO 06/16/20 05/04/[address]] Calcium Carbonate [Calcium] 600 mg PO AC-LUNCH 01/21/21 05/04/21 History Cyanocobalamin (Vitamin B-12) 1,000 mcg PO AC-LUNCH 01/21/21 05/04/21 History [Vitamin B-12] Dapagliflozin Propanediol [Farxiga] 5 mg PO DAILY 01/21/21 05/04/21 History Ipratropium-Albuterol Nebulize 3 ml INHALATION RT-QID 01/21/21 05/04/21 History [Duoneb 0.5 mg-3 mg/3 ml Soln] Losartan [Cozaar] 25 mg PO DAILY 01/21/21 05/04/21 History Magnesium Oxide [Mag-Ox] 400 mg PO AC-LUNCH 01/21/21 05/04/21 History Melatonin 5 mg PO HS 01/21/21 05/04/21 History metFORMIN HCL [Glucophage] 1,000 mg PO AC-SUPPER 01/21/21 05/04/21 History Budesonide-Formot 160-4.5 Mcg 2 puff INHALATION RT-BID #1 puff 01/24/21 05/04/21 Rx [Symbicort 160-4.5 Mcg Inhaler] Metoprolol Tartrate [Lopressor] 100 mg PO BID #180 tab 01/24/21 05/04/21 Rx Budesonide [Pulmicort] 1 mg INHALATION RT-BID PRN 04/27/21 05/04/21 History Ascorbic Acid [Vitamin C] 500 mg PO BID tab 05/01/21 05/04/21 Rx Cholecalciferol [Vitamin D3 (25 50 mcg PO DAILY tablet 05/01/21 05/04/21 Rx Mcg = 1000 Iu)] Furosemide [Lasix] 20 mg PO BID@0800,1200 #0 05/01/21 05/04/21 Rx Zinc Sulfate [Orazinc] 220 mg PO DAILY cap 05/01/21 05/04/21 Rx predniSONE 10 mg PO DAILY #0 05/01/21 05/04/21 Rx Potassium Chloride [Potassium 10 meq PO AC-BID 05/04/21 05/04/21 History Chloride ER] predniSONE See Taper PO DIRECTED 05/04/21 05/04/21 History Allergies Allergy/AdvReac Type Severity Reaction Status Date / Time Sulfa (Sulfonamide Allergy Unknown Verified 05/04/21 14:19 Antibiotics) Childhood shellfish derived [Shellfish] AdvReac Nausea & Verified 05/04/21 14:19 Vomiting & Diarrhea Physical Exam Vitals: Vital Signs Temp Pulse Resp BP Pulse Ox 05/04/21 18:11 89 20 92/56 100 05/04/21 17:36 122 H 20 90/60 100 05/04/21 16:22 117 H 20 89/64 100 05/04/21 14:19 98.1 F 117 H 20 117/87 100 05/04/21 13:31 111 H 20 100 05/04/21 11:31 24 05/04/21 11:25 99.3 F 116 H 24 156/97 100 Intake and Output 05/04/21 05/04/21 05/04/21 06:59 14:59 22:59 Other: Weight 74.843 kg Results CBC & Chem 7: 05/05/21 07:35 05/05/21 07:54 Labs: Abnormal Lab Results - Last 24 Hours (Table) 05/04/21 05/04/21 Range/Units 12:24 12:24 WBC 17.8 H (3.8-10.6) k/uL Hct 46.8 H (34.0-46.0) % Neutrophils # 16.2 H (1.3-7.7) k/uL Lymphocytes # 0.6 L (1.0-4.8) k/uL Sodium 131 L (137-145) mmol/L Chloride 89 L (98-107) mmol/L Carbon Dioxide 36 H (22-30) mmol/L BUN 32 H (7-17) mg/dL Glucose 207 H (74-99) mg/dL Magnesium 2.4 H (1.6-2.3) mg/dL Lactate Dehydrogenase 749 H (313-618) U/L C-Reactive Protein 2.4 H (<1.0) mg/dL Total Protein 5.5 L (6.3-8.2) g/dL Albumin 3.3 L (3.5-5.0) g/dL
[2021-05-05 16:51] LABS: Glucose,Whole Blood 350 mg/dL (75-99)
[2021-05-05] MEDS: metFORMIN 500 MG TAB PO SCH (17:29)
[2021-05-05] MEDS: DIGOXIN 125 MCG TAB PO SCH (17:29)
[2021-05-05 20:47] LABS: Glucose,Whole Blood 287 mg/dL (75-99)
[2021-05-05] MEDS: ATORVASTATIN 20 MG TAB PO SCH (21:57)
[2021-05-05] MEDS: MELATONIN 5 MG TABLET PO SCH (21:58)
[2021-05-05] MEDS: INSULIN ASPART (NovoLOG) 100 UNIT/ML VIAL SQ SCH (21:58)
[2021-05-06] MEDS: ALBUTEROL HFA INHALER INHALATION SCH ×5 (00:40→21:26)
[2021-05-06] MEDS: MIDODRINE 5 MG TAB PO SCH ×3 (05:36→17:41)
[2021-05-06] MEDS: PANTOPRAZOLE 40 MG TABLET PO SCH (05:36)
[2021-05-06] MEDS: FAMOTIDINE 20 MG TAB PO SCH (05:36)
[2021-05-06] MEDS: POTASSIUM CHLORIDE ER 10 MEQ TAB.ER.PRT PO SCH ×2 (05:36→17:41)
[2021-05-06 06:27] LABS: Glucose,Whole Blood 181 mg/dL (75-99)
[2021-05-06] MEDS: INSULIN ASPART (NovoLOG) 100 UNIT/ML VIAL SQ SCH ×4 (06:51→21:05)
--- NOTE | 2021-05-06 07:31 | XR ---
EXAMINATION TYPE: XR chest 1V portable DATE OF EXAM: 05/06/2021 Comparison: 05/05/2021 Clinical History: 89-year-old female with CHF, covid Findings: The patient is rotated towards the left altering the normal cardiomediastinal contours. Heart likely upper limits of normal in size. Left anterior chest wall pacemaker generator with right atrial and ri ght ventricular leads. Hyperinflation. Interstitial and patchy densities periphery of the mid and low er lungs, left greater than right are redemonstrated. The degree of patient rotation makes direct com parison difficult. Suggestion of chronic full-thickness rotator cuff tears in both shoulders. Atheros clerotic calcifications throughout the thoracic aorta. Impression: Limited, rotated exam. COPD and patchy peripheral mid and lower lung infiltrates, left greater than r ight, relatively similar.
--- NOTE | 2021-05-06 07:47 | P.PN ---
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 and steroid dependent has been doing fine with her O2 and Nebulized treatment at home till recently where she found to be more short of breath with increased coughing despite using her Updraft treatment, was recently hospitalized at [facility] after she was diagnosed with COVID-19 pneumonia she did receive Solu-Medrol 60 mg IV push every 6 hours along with Remdesivir and she was discharged home on Tuesday patient was doing fine on Tuesday however on Tuesday developed to have an increased shortness breath associated with increased swelling in both lower extremities patient was supposed to get Cardizem CD 360 mg for some reason was not called into her pharmacy, and she had stopped taking her Cardizem CD 240 she developed to have a significant atrial fibrillation with rapid ventricular response she became extreme short of breath , her daughter brought her to the emergency department at [facility] where she was found to have an acute diastolic heart failure she was started on Cardizem drip at 10 mg an hour, she was given Lasix 40 mg IV push every 8 hours, she was admitted to the hospital for acute diastolic heart failure patien had a chest x-ray that didn't show evidence of p ulmonary vascular congestion and she was admitted to the hospital for evaluation and treatment by cardiology on Pulmonary consultation was obtained.t 05/05: Patient will be resumed on Cardizem oral 360 mg. Unfortunately, this was not prescribed to her pharmacy at the time of discharge. She is currently on Cardizem drip and cardiology on consult. Patient states that she had a rough night and was tired. She was placed on AirVo this morning at 5 AM with pulse ox of 95% with FiO2 of 34. Heart rate is currently running in the 120s she's been afebrile, respiratory rate 28, blood pressure 118/70. Repeat blood work reveals WBC 19.9. Sodium 131, potassium 3.7, chloride 89, CO2 36, BUN 27 creatinine 0.85. Blood sugar 145. D-dimer 0.25. Total bilirubin 1.4. LDH 839. C- reactive protein 7.7. Pro-calcitonin 0.05. Repeat chest x-ray ordered for tomorrow. Discuss CODE STATUS with the patient she wishes to be full code. REVIEW OF SYSTEMS Constitutional: no fever no chills, no night sweats. No weight change. Reports weakness, Reports fatigue no lethargy. No daytime sleepiness. HEENT: No headache. No blurred vision or double vision, no loss of vision. No loss of Hearing, no ringing in the ears, no dizziness. No nasal drainage or congestion. No epistaxis. No sore throat, no loss of taste Lungs: Reports shortness of breath, Reports cough, positive for sputum production. Reports wheezing. Cardiovascular: No chest pain, mild lower extremity edema. positive for palpitations. No paroxysmal nocturnal dyspnea. No orthopnea. No lightheadedn ess or dizziness. No syncopal episodes. Abdominal: No abdominal pain. No nausea, vomiting. No diarrhea. No constipation. No bloody or tarry stools.. No loss of appetite. Genitourinary: No dysuria, increased frequency, urgency. No urinary retention. Musculoskeletal: No myalgias. positive for muscle weakness, no gait dysfunction, no frequent falls. No back pain. No neck pain. Integumentary: No wounds, no lesions. No rash or pruritus. No unusual bruising. Neurologic: No aphasia. No facial droop. No change in mentation. No head injury. No headache. No paralysis. No paresthesia. Psychiatric: No depression. No anxiety. Endocrine: No abnormal blood sugars. PHYSICAL EXAMINATION Gen: This is an 89-year-old female, lying down in bed in mild acute distress currently on AirVo. HEENT: Head is atraumatic, normocephalic. Pupils equal, round. Sclerae is anicteric, mucous membranes of the mouth are somewhat dry. NECK: Supple. No JVD. No lymphadenopathy. No thyromegaly, decreased carotid upstrokes bilaterally. Chest: decrease breath sounds at the bases with few ronchi , minimal expiratory wheezes no chest wall tenderness minimal intercostal retractions. Heart: first heart sound is depressed second heart sound is normal there FLORY 2/6 located at the left sternal border, irregularly irregular due to atrial fibrillation. ABDOMEN: Soft, nontender, nondistended, positive bowel sounds, no hepatosplenomegaly. EXTREMITIES: +2 pedal edema. No calf tenderness. Dorsalis pedis +1 bilaterally. NEUROLOGICAL: Patient is awake, alert and oriented x3. Cranial nerves 2 through 12 are grossly intact muscle christopher 4 out of 5 in upper and lower extremities bilaterally., ASSESSMENT AND PLAN 1. Acute hypoxemic respiratory failure due acute diastolic heart failure. Lasix 40 mg IV push every 8 hours, continue with Cardizem drip at 10 g an hour, continue digoxin 62.5 mg orally once every day, continue metoprolol 100 mg ora lly twice every day, resume Cardizem oral 360 mg. cardiology consultation. 2. Atrial fibrillation, paroxysmal. Patient currently in A. fib. Cardiology consult. Continue Digoxin 125 mcg orally daily, Cardizem CD 240 mg orally daily, Metoprolol 100 mg orally bid and Eliquis 2.5 mg orally bid. 3. Acute exacerbation of COPD with a prior history of COVID-19 pneumonia. Continue Solu-Medrol 60 mg IV push every 6 hours, DuoNeb 3 mL nebulization 4 times every day, Pulmicort 1 mg Patient twice every day, apply the patient oxygen at 3 L nasal cannula adjust for saturation 92-93%, pulmonary consultation. 4 .Hypertension and hypertensive cardiovascular disease. Continue Losartn 25 mg orally daily, Metoprolol 100 mg orally bid. 5. Hyperlipidemia. Continue Lipitor 20 mg orally daily. 6. Chronic diastolic heart failure. we will continue with Lasix 20 mg orally bid, Losartan 25 mg orally daily and Metoprolol 100 mg orally bid and Lasix 40 mg IV push every 8 hours. 7. 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 we will continue with above treatment. 8. GERD. we will continue with Protonix 40 mg orally daily and Pepcid 20 mg po bid 9. CAD. Continue with Metoprolol 100 mg orally bid, Lipitor 20 mg orally daily and Imdur 15 mg orally daily. 10. Diabetes mellitus type 2. we will continue with Metformin 1000 mg orally with supper and Farxiga 5 mg orally daily, we will start sliding scale insulin. 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 we will hold off Residronate. 12. DVT prophylaxis. Continue eliquis. 2.5 mg orally bid. 13. GI Prophylaxis. we will continue with protonix 40 mg orally daily and pepcid 20 mg orally bid CODE STATUS: Full code DISCHARGE PLAN Home with home care most likely. Impression and plan of care have been directed as dictated by the signing physician. Noelle Gilbert nurse practitioner acting as scribe for signing physician. Objective - Vital Signs Vital signs: Vital Signs Temp 97.9 F 05/05/21 00:00 Pulse 129 H 05/05/21 05:16 Resp 28 H 05/05/21 05:10 BP 128/74 05/05/21 05:10 Pulse Ox 96 05/05/21 05:09 Intake & Output 05/04/21 05/05/21 05/05/21 18:59 06:59 18:59 Output Total 50 Balance -50 Weight 74.843 kg 75 kg Output: Urine 50 Other: Voiding Method Bedside Commode - Labs CBC & Chem 7: 05/05/21 07:35 05/05/21 07:54 Labs: Abnormal Lab Results - Last 24 Hours (Table) 05/04/21 05/04/21 05/05/21 Range/Units 12:24 12:24 06:35 WBC 17.8 H (3.8-10.6) k/uL Hct 46.8 H (34.0-46.0) % Neutrophils # 16.2 H (1.3-7.7) k/uL Lymphocytes # 0.6 L (1.0-4.8) k/uL Sodium 131 L (137-145) mmol/L Chloride 89 L (98-107) mmol/L Carbon Dioxide 36 H (22-30) mmol/L BUN 32 H (7-17) mg/dL Glucose 207 H (74-99) mg/dL POC Glucose (mg/dL) 129 H (75-99) mg/dL Magnesium 2.4 H (1.6-2.3) mg/dL Lactate Dehydrogenase 749 H (313-618) U/L C-Reactive Protein 2.4 H (<1.0) mg/dL Total Protein 5.5 L (6.3-8.2) g/dL Albumin 3.3 L (3.5-5.0) g/dL
--- NOTE | 2021-05-06 08:29 | P.PN ---
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 and steroid dependent has been doing fine with her O2 and Nebulized treatment at home till recently where she found to be more short of breath with increased coughing despite using her Updraft treatment, was recently hospitalized at [facility] after she was diagnosed with COVID-19 pneumonia she did receive Solu-Medrol 60 mg IV push every 6 hours along with Remdesivir and she was discharged home on Tuesday patient was doing fine on Tuesday however on Tuesday developed to have an increased shortness breath associated with increased swelling in both lower extremities patient was supposed to get Cardizem CD 360 mg for some reason was not called into her pharmacy, and she had stopped taking her Cardizem CD 240 she developed to have a significant atrial fibrillation with rapid ventricular response she became extreme short of breath , her daughter brought her to the emergency department at [facility] where she was found to have an acute diastolic heart failure she was started on Cardizem drip at 10 mg an hour, she was given Lasix 40 mg IV push every 8 hours, she was admitted to the hospital for acute diastolic heart failure patien had a chest x-ray that didn't show evidence of p ulmonary vascular congestion and she was admitted to the hospital for evaluation and treatment by cardiology on Pulmonary consultation was obtained.t 05/05: Patient will be resumed on Cardizem oral 360 mg. Unfortunately, this was not prescribed to her pharmacy at the time of discharge. She is currently on Cardizem drip and cardiology on consult. Patient states that she had a rough night and was tired. She was placed on AirVo this morning at 5 AM with pulse ox of 95% with FiO2 of 34. Heart rate is currently running in the 120s she's been afebrile, respiratory rate 28, blood pressure 118/70. Repeat blood work reveals WBC 19.9. Sodium 131, potassium 3.7, chloride 89, CO2 36, BUN 27 creatinine 0.85. Blood sugar 145. D-dimer 0.25. Total bilirubin 1.4. LDH 839. C- reactive protein 7.7. Pro-calcitonin 0.05. Repeat chest x-ray ordered for tomorrow. Discuss CODE STATUS with the patient she wishes to be full code. 05/06: Patient has been seen by cardiology and has been resumed on all her home medications, Cardizem drip discontinued. Heart rate is now in the 60s and 70s. 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 Blood pressure 125/81, pulse ox 96% on BiPAP 30% FiO2. She's been afebrile. Patient is also been seen by pulmonary medicine. Repeat chest x-ray this morning reveals limited rotated exam. COPD with patchy peripheral mid and lower lung infiltrates, left greater than right relatively similar. Capillary blood glucose running between 181 and 350. Patient states she had a good night and breathing is much better, wheezing is much better and cotinues with cough without sputum production. No change will be made in steroid and continue Solu-medrol 60 mg q6h. She had normal BM this morning. Consults with PT and OT added. She states she would rather go home verses rehab. REVIEW OF SYSTEMS Constitutional: no fever no chills, no night sweats. No weight change. Reports weakness, Reports fatigue no lethargy. No daytime sleepiness. HEENT: No headache. No blurred vision or double vision, no loss of vision. No loss of Hearing, no ringing in the ears, no dizziness. No nasal drainage or congestion. No epistaxis. No sore throat, no loss of taste Lungs: Reports shortness of breath-improved, Reports cough, positive for sputum production. Reports wheezing. Cardiovascular: No chest pain, mild lower extremity edema. no palpitations. No paroxysmal nocturnal dyspnea. No orthopnea. No lightheadedness or dizziness. No syncopal episodes. Abdominal: No abdominal pain. No nausea, vomiting. No diarrhea. No constipation. No bloody or tarry stools.. No loss of appetite. Genitourinary: No dysuria, increased frequency, urgency. No urinary retention. Musculoskeletal: No myalgias. positive for muscle weakness, no gait dysfu nction, no frequent falls. No back pain. No neck pain. Integumentary: No wounds, no lesions. No rash or pruritus. No unusual bruising. Neurologic: No aphasia. No facial droop. No change in mentation. No head injury. No headache. No paralysis. No paresthesia. Psychiatric: No depression. No anxiety. Endocrine: Noted abnormal blood sugars. PHYSICAL EXAMINATION Gen: This is an 89-year-old female, lying down in bed in mild acute distress currently on AirVo. HEENT: Head is atraumatic, normocephalic. Pupils equal, round. Sclerae is anicteric, mucous membranes of the mouth are somewhat dry. NECK: Supple. No JVD. No lymphadenopathy. No thyromegaly, decreased carotid upstrokes bilaterally. Chest: decrease breath sounds at the bases with few ronchi , minimal expiratory wheezes no chest wall tenderness minimal intercostal retractions. Heart: first heart sound is depressed second heart sound is normal there FLORY 2/6 located at the left sternal border, irregularly irregular due to atrial fibrillation. ABDOMEN: Soft, nontender, nondistended, positive bowel sounds, no hepatosplenomegaly. EXTREMITIES: +1 pedal edema. No calf tenderness. Dorsalis pedis +1 bilaterally. NEUROLOGICAL: Patient is awake, alert and oriented x3. Cranial nerves 2 through 12 are grossly intact muscle christopher 4 out of 5 in upper and lower extremities bilaterally., ASSESSMENT AND PLAN 1. Acute hypoxemic respiratory failure due acute diastolic heart failure. Lasix 40 mg IV push every 8 hours, discontinue Cardizem drip, continue digoxin 62.5 mg orally once every day, continue metoprolol 100 mg orally twice every day, resume Cardizem oral 360 mg. cardiology consultation. 2. Atrial fibrillation, paroxysmal. Patient currently in A. fib. Cardiology consult. Continue Digoxin 125 mcg orally daily, Cardizem CD 240 mg orally daily, Metoprolol 100 mg orally bid and Eliquis 2.5 mg orally bid. 3. Acute exacerbation of COPD with a prior history of COVID-19 pneumonia. Continue Solu-Medrol 60 mg IV push every 6 hours, DuoNeb 3 mL nebulization 4 times every day, Pulmicort 1 mg Patient twice every day, apply the patient oxygen at 3 L nasal cannula adjust for saturation 92-93%, pulmonary consultation. 4. Hypertension and hypertensive cardiovascular disease. Continue Losartn 25 mg orally daily, Metoprolol 100 mg orally bid. 5. Hyperlipidemia. Continue Lipitor 20 mg orally daily. 6. Chronic diastolic heart failure. we will continue with Lasix 20 mg orally bid, Losartan 25 mg orally daily and Metoprolol 100 mg orally bid and Lasix 40 mg IV push every 8 hours. 7. 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 we will continue with above treatment. 8. GERD. we will continue with Protonix 40 mg orally daily and Pepcid 20 mg po bid 9. CAD. Continue with Metoprolol 100 mg orally bid, Lipitor 20 mg orally daily and Imdur 15 mg orally daily. 10. 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 we will continue with Metformin 1000 mg orally with supper and Farxiga 5 mg orally daily, we will start sliding scale insulin. 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 we will hold off Residronate. 12. DVT prophylaxis. Continue eliquis. 2.5 mg orally bid. 13. GI Prophylaxis. we will continue with protonix 40 mg orally daily and pepcid 20 mg orally bid CODE STATUS: Full code DISCHARGE PLAN Home with home care most likely. Impression and plan of care have been directed as dictated by the signing physician. Noelle Gilbert nurse practitioner acting as scribe for signing physician. Objective - Vital Signs Vital signs: Vital Signs Temp 98.1 F 05/06/21 00:49 Pulse 70 05/06/21 04:00 Resp 24 05/06/21 04:00 BP 125/81 05/06/21 04:00 Pulse Ox 96 05/06/21 04:00 Intake & Output 05/05/21 05/06/21 05/06/21 18:59 06:59 18:59 Intake Total 380 Output Total 350 950 Balance 30 -950 Weight 106.5 kg Intake: Oral 380 Output: Urine 350 950 Other: Voiding Method Bedside Commode Bedside Commode External Catheter - Labs CBC & Chem 7: 05/05/21 07:35 05/05/21 07:54 Labs: Abnormal Lab Results - Last 24 Hours (Table) 05/05/21 05/05/21 05/05/21 Range/Units 07:35 07:54 12:16 WBC 19.9 H (3.8-10.6) k/uL Neutrophils # 18.9 H (1.3-7.7) k/uL Lymphocytes # 0.3 L (1.0-4.8) k/uL Sodium 131 L (137-145) mmol/L Chloride 89 L (98-107) mmol/L Carbon Dioxide 36 H (22-30) mmol/L BUN 27 H (7-17) mg/dL Glucose 145 H (74-99) mg/dL POC Glucose (mg/dL) 213 H (75-99) mg/dL Total Bilirubin 1.4 H (0.2-1.3) mg/dL Lactate Dehydrogenase 839 H (313-618) U/L C-Reactive Protein 7.7 H (<1.0) mg/dL Total Protein 5.1 L (6.3-8.2) g/dL Albumin 3.0 L (3.5-5.0) g/dL 05/05/21 05/05/21 05/06/21 Range/Units 16:49 20:46 06:26 WBC (3.8-10.6) k/uL Neutrophils # (1.3-7.7) k/uL Lymphocytes # (1.0-4.8) k/uL Sodium (137-145) mmol/L Chloride (98-107) mmol/L Carbon Dioxide (22-30) mmol/L BUN (7-17) mg/dL Glucose (74-99) mg/dL POC Glucose (mg/dL) 350 H 287 H 181 H (75-99) mg/dL Total Bilirubin (0.2-1.3) mg/dL Lactate Dehydrogenase (313-618) U/L C-Reactive Protein (<1.0) mg/dL Total Protein (6.3-8.2) g/dL Albumin (3.5-5.0) g/dL
[2021-05-06 08:32] LABS: Basophils % (A) 0 %; Eosinophils # (A) 0.1 k/uL (0-0.7); Eosinophils % (A) 0 %; HCT 46.4 % (34.0-46.0); HGB 14.4 gm/dL (11.4-16.0); Lymphocytes # (A) 0.5 k/uL (1.0-4.8); Lymphocytes % (A) 2 %; MCH 29.2 pg (25.0-35.0); MCV 94.3 fL (80.0-100.0); Mean Platelet Volume 7.7; Monocytes # (A) 0.5 k/uL (0-1.0); Monocytes % (A) 2 %; Neutrophils # (A) 20.9 k/uL (1.3-7.7); Neutrophils % (A) 95 %; Platelet Count 222 k/uL (150-450); RBC 4.92 m/uL (3.80-5.40); RDW 14.1 % (11.5-15.5)
[2021-05-06] MEDS: DILTIAZEM CD 180 MG CAP.ER.24H PO SCH (08:32)
[2021-05-06] MEDS: METOPROLOL TARTRATE 50 MG TAB PO SCH ×2 (08:33→20:24)
[2021-05-06] MEDS: ISOSORBIDE MONONITRATE ER 15 MG TAB PO SCH (08:33)
[2021-05-06] MEDS: APIXABAN 2.5 MG TABLET PO SCH ×2 (08:33→20:23)
[2021-05-06] MEDS: methylPREDNISolone SOD SUCCI 125 MG/2 ML VIAL IV SCH ×3 (08:33→23:10)
[2021-05-06] MEDS: ZINC SULFATE 220 MG CAP PO SCH (08:33)
[2021-05-06] MEDS: CHOLECALCIFEROL 25 MCG (1000 IU) TABLET PO SCH (08:33)
[2021-05-06] MEDS: ASCORBIC ACID 500 MG TAB PO SCH ×2 (08:33→20:24)
[2021-05-06] MEDS: LOSARTAN 25 MG TAB PO SCH (08:33)
[2021-05-06] MEDS: FUROSEMIDE 10 MG/ML 4 ML VIAL IV SCH ×3 (08:35→23:10)
[2021-05-06 09:01] LABS: Albumin 3.3 g/dL (3.5-5.0); Calcium 8.7 mg/dL (8.4-10.2); Potassium 4.4 mmol/L (3.5-5.1); Total Bilirubin 1.3 mg/dL (0.2-1.3); Total Protein 5.7 g/dL (6.3-8.2)
[2021-05-06] MEDS: TIOTROPIUM 2.5 MCG INHALER INHALATION SCH (09:02)
[2021-05-06] MEDS: SYMBICORT 160-4.5 MCG INHALER INHALATION SCH ×2 (09:02→21:26)
[2021-05-06 11:53] LABS: Glucose,Whole Blood 251 mg/dL (75-99)
[2021-05-06] MEDS: CYANOCOBALAMIN 500 MCG TAB PO SCH (12:28)
[2021-05-06] MEDS: CALCIUM CARBONATE 500 MG CHEWABLE PO SCH (12:28)
[2021-05-06] MEDS: MAGNESIUM OXIDE 400 MG TAB PO SCH (12:28)
--- NOTE | 2021-05-06 14:21 | P.PN ---
Subjective Progress Note Date: 05/06/21 CHIEF COMPLAINT: A. fib with RVR HISTORY OF PRESENT ILLNESS: This is a 89 year old female with a past medical history significant for chronic persistent atrial fibrillation, COPD with home oxygen, hypertension, sick sinus syndrome with dual-chamber pacemaker insertion, and former nicotine dependence. Patient follows in the office with Dr. Pina. We have been asked to see the patient in consultation for atrial fibrillation. Patient was just discharged home the hospital on 05/01/2021 after being diagnosed with Covid. Patient presented back to the hospital with shortness of breath. Patient was also found to be in atrial fibrillation with RVR. She was started on a cardizem drip. She remains in atrial fibrillation with a heart rate in the 130s. DIAGNOSTICS: EKG reveals atrial fibrillation with RVR Chest xray no acute cardiopulmonary process Laboratory data: WBC 19.9. Hemoglobin 15.0. Platelet count 201. D-dimer 0.25. Sodium 131. Potassium 3.7. BUN 27. Creatinine 0.85. Magnesium 2.4. ProBNP 9460. Troponin 0.013. Current home cardiac medications include metoprolol tartrate 100 mg twice a day, losartan 25 mg daily, Imdur 15 mg daily, Lasix 20 mg twice a day, digoxin 62.5 g Tuesday to tuesday, Lipitor 20 mg daily, and Eliquis 2.5 mg twice a day Echocardiogram completed in January 2021 reveals ejection fraction 55-60%, mild to moderate aortic regurgitation, mild aortic stenosis, mild to moderate mitral regurgitation, [id number] tricuspid regurgitation and [id number] pulmonary hypertension 05/06/2021 Patient remains in atrial fibrillation with controlled ventricular rates. She remains on Eliquis. She is on 3L nasal cannula with oxygen saturations greater than 92%. No complaints of chest pain or pressure. Blood pressure 99/71. PHYSICAL EXAM: Thorough physical exam not completed secondary to limited evaluation/examination due to Covid19 ASSESSMENT: Shortness of breath Covid 19 Chronic persistent atrial fibrillation with RVR Acute on chronic diastolic congestive heart failure COPD with home o2 Hypertension Sick sinus syndrome s/p dual chamber pacemaker [employer] 2018 Former nicotine dependence PLAN: No need to repeat echocardiogram as this was performed in January 2021 Continue current cardiac medications Continue telemetry monitoring Agreeable to IV diuresis Accurate I&O Daily weight Monitor kidney function Further recommendations pending patient course Nurse practitioner note has been reviewed by physician. Signing provider agrees with the documented findings, assessment, and plan of care. Objective - Vital Signs Vital signs: Vital Signs Temp 98.1 F 05/06/21 00:49 Pulse 99 05/06/21 14:00 Resp 22 05/06/21 14:00 BP 99/71 05/06/21 12:00 Pulse Ox 97 05/06/21 12:00 Intake & Output 05/05/21 05/06/21 05/06/21 18:59 06:59 18:59 Intake Total 380 118 Output Total 350 950 300 Balance 30 -950 -182 Weight 106.5 kg Intake: Oral 380 118 Output: Urine 350 950 300 Other: Voiding Method Bedside Commode Bedside Commode Bedside Commode External Catheter External Catheter # Bowel Movements 1 - Labs CBC & Chem 7: 05/06/21 07:55 05/06/21 07:55 Labs: Abnormal Lab Results - Last 24 Hours (Table) 05/05/21 05/05/21 05/06/21 Range/Units 16:49 20:46 06:26 WBC (3.8-10.6) k/uL Hct (34.0-46.0) % Neutrophils # (1.3-7.7) k/uL Lymphocytes # (1.0-4.8) k/uL Sodium (137-145) mmol/L Chloride (98-107) mmol/L Carbon Dioxide (22-30) mmol/L BUN (7-17) mg/dL Creatinine (0.52-1.04) mg/dL Glucose (74-99) mg/dL POC Glucose (mg/dL) 350 H 287 H 181 H (75-99) mg/dL Total Protein (6.3-8.2) g/dL Albumin (3.5-5.0) g/dL 05/06/21 05/06/21 05/06/21 Range/Units 07:55 07:55 11:52 WBC 22.0 H (3.8-10.6) k/uL Hct 46.4 H (34.0-46.0) % Neutrophils # 20.9 H (1.3-7.7) k/uL Lymphocytes # 0.5 L (1.0-4.8) k/uL Sodium 132 L (137-145) mmol/L Chloride 88 L (98-107) mmol/L Carbon Dioxide 34 H (22-30) mmol/L BUN 38 H (7-17) mg/dL Creatinine 1.06 H (0.52-1.04) mg/dL Glucose 203 H (74-99) mg/dL POC Glucose (mg/dL) 251 H (75-99) mg/dL Total Protein 5.7 L (6.3-8.2) g/dL Albumin 3.3 L (3.5-5.0) g/dL
--- NOTE | 2021-05-06 14:36 | P.PN ---
Subjective Progress Note Date: 05/06/21 Principal diagnosis: Recent COVID-19 infection, A. fib with RVR, acute CHF exacerbation 89-year-old white female patient who follows with Dr. 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 Patient was treated with steroids, bronchodilators, diuretics, and she has completed a course of Remdesivir. She was feeling better, breathing much easier, she was off BiPAP support, she was discharged home on 05/01/2021. On 05/04/2021 patient came to the emergency department per EMS for evaluation of worsening shortness of breath that she started experiencing at nighttime. Patient felt that her heart was racing, she was found to be in A. fib with RVR in the emergency department. He was doing her breathing treatments but it was not helping. She had a low-grade fever in [facility] emergency department. Lab work on admission showed leukocytosis with a white count of 17.8, however patient was completing prednisone taper at home, CMP revealed mild dehydration, otherwise it was unremarkable. Troponin was within normal limits, proBNP was elevated at 9460. Chest x-ray showed no acute cardiopulmonary process. She was very dyspneic, and bronchospastic, in the emergency department she was started on IV Lasix 40 mg every 8 hours, she was started on a Cardizem infusion for rate control, she takes Eliquis for chronic anticoagulation at home, she was started on nebulized bronchodilators, and IV steroids. Follow-up chest x-ray today showing mild pulmonary congestion, but no pleural fluid to suggest heart failure. She is breathing easier, she was placed on Airvo at 50 L and FiO2 34%, her pulse ox is 95-96%. Still mildly wheezy and dyspneic, but no acute distress. Overall is feeling better. On 05/06/2021 patient seen in follow-up on selective care unit, she is breathing much easier today, she is on 3 L of oxygen pulse ox is 97%. She did wear BiPAP support last night, FiO2 of 30%, maintained O2 saturations at 96-97%, she's been afebrile, she remains on diuretics with IV Lasix 40 mg every 8 hours, she is maintaining negative fluid balance. She remains in atrial fibrillation with a controlled rate. She is on Eliquis 2.5 mg twice daily, metoprolol 100 mg twice daily, but etiology is following. Patient is also on Cardizem CD 360 mg daily. She remains on IV Solu-Medrol 60 mg every 8 hours 4 acute exacerbation of COPD. Today's labs have been reviewed showing white blood cell count 22, hemoglobin is 14, sodium is 132, potassium is 4.4, chloride is 88, BUN is 30 a creatinine is 1.06. Today's chest x-ray shows patchy peripheral mid and lower lung infilt rates, left greater than right relatively similar to the previous chest x-ray Objective - Vital Signs Vital signs: Vital Signs Temp 98.1 F 05/06/21 00:49 Pulse 99 05/06/21 14:00 Resp 22 05/06/21 14:00 BP 99/71 05/06/21 12:00 Pulse Ox 97 05/06/21 12:00 Intake & Output 05/05/21 05/06/21 05/06/21 18:59 06:59 18:59 Intake Total 380 118 Output Total 350 950 300 Balance 30 -950 -182 Weight 106.5 kg Intake: Oral 380 118 Output: Urine 350 950 300 Other: Voiding Method Bedside Commode Bedside Commode Bedside Commode External Catheter External Catheter # Bowel Movements 1 - Exam GENERAL EXAM: Alert, 89-year-old white female patient on 3 L of oxygen pulse ox of 96% comfortable in no apparent distress. HEAD: Normocephalic/atraumatic. EYES: Normal reaction of pupils, equal size. Conjunctiva pink, sclera white. NOSE: Clear with pink turbinates. THROAT: No erythema or exudates. NECK: No masses, no JVD, no thyroid enlargement, no adenopathy. CHEST: No chest wall deformity. Symmetrical expansion. LUNGS: Equal air entry with diminished breath sounds mild crackles and wheezes CVS: Irregular rate and rhythm, normal S1 and S2, no gallops, no murmurs, no rubs ABDOMEN: Soft, nontender. No hepatosplenomegaly, normal bowel sounds, no guarding or rigidity. EXTREMITIES: No clubbing, no edema, no cyanosis, 2+ pulses and upper and lower extremities. MUSCULOSKELETAL: Muscle strength and tone normal. SPINE: No scoliosis or deformity SKIN: No rashes CENTRAL NERVOUS SYSTEM: Alert and oriented -3. No focal deficits, tone is normal in all 4 extremities. PSYCHIATRIC: Alert and oriented -3. Appropriate affect. Intact judgment and insight. - Labs CBC & Chem 7: 05/06/21 07:55 05/06/21 07:55 Labs: Abnormal Lab Results - Last 24 Hours (Table) 05/05/21 05/05/21 05/06/21 Range/Units 16:49 20:46 06:26 WBC (3.8-10.6) k/uL Hct (34.0-46.0) % Neutrophils # (1.3-7.7) k/uL Lymphocytes # (1.0-4.8) k/uL Sodium (137-145) mmol/L Chloride (98-107) mmol/L Carbon Dioxide (22-30) mmol/L BUN (7-17) mg/dL Creatinine (0.52-1.04) mg/dL Glucose (74-99) mg/dL POC Glucose (mg/dL) 350 H 287 H 181 H (75-99) mg/dL Total Protein (6.3-8.2) g/dL Albumin (3.5-5.0) g/dL 05/06/21 05/06/21 05/06/21 Range/Units 07:55 07:55 11:52 WBC 22.0 H (3.8-10.6) k/uL Hct 46.4 H (34.0-46.0) % Neutrophils # 20.9 H (1.3-7.7) k/uL Lymphocytes # 0.5 L (1.0-4.8) k/uL Sodium 132 L (137-145) mmol/L Chloride 88 L (98-107) mmol/L Carbon Dioxide 34 H (22-30) mmol/L BUN 38 H (7-17) mg/dL Creatinine 1.06 H (0.52-1.04) mg/dL Glucose 203 H (74-99) mg/dL POC Glucose (mg/dL) 251 H (75-99) mg/dL Total Protein 5.7 L (6.3-8.2) g/dL Albumin 3.3 L (3.5-5.0) g/dL Assessment and Plan Plan: Assessment: #1. Acute on chronic dyspnea, multifactorial, related to acute exacerbation of COPD, and CHF with diastolic dysfunction and A. fib with RVR #2. A. fib with RVR, currently better controlled on a combination of metoprolol, oral Cardizem CD, and patient is on Eliquis for anticoagulation #3. Recent hospitalization for COVID-19 infection, COPD and CHF exacerbation, discharged home on 05/01/2021. Patient is status post completed COVID-19 vaccination. Patient completed a course of Remdesivir while in the hospital and IV steroids, oral anticoagulation, and COVID-19 vitamins #4. Advanced COPD on home oxygen and maintenance dose prednisone #5. Chronic diastolic congestive heart failure #6. Former smoker, currently in remission, carries [id number] smoking history #7. Paroxysmal A. fib, on Eliquis #8. Benign essential hypertension #9. History of dual-chamber pacemaker insertion for history of sinus pauses #10. Moderate pulmonary hypertension Plan: Continue IV Solu-Medrol Continue diuretics Continue oral anticoagulation in the form of Eliquis Remains in atrial fibrillation but the rate is better controlled BiPAP support at bedtime as needed for dyspnea and hypoxia Today's chest x-ray has been reviewed Labs have been reviewed Follow-up labs including electrolytes and renal profile tomorrow Accurate intake and output Continue to follow I performed a history & physical examination of the patient and discussed their management with my nurse practitioner, Kenna Ervin. I reviewed the nurse practitioner's note and agree with the documented findings and plan of care. Lung sounds are positive for diffuse wheezes throughout the lung cotto. The findings and the impression was discussed with the patient. I attest to the documentation by the nurse practitioner. Time with Patient: Less than 30
[2021-05-06] MEDS: DIGOXIN 125 MCG TAB PO SCH (14:53)
[2021-05-06] MEDS: Dapagliflozin Propanediol [Farxiga] PO SCH (14:53)
[2021-05-06 16:58] LABS: Glucose,Whole Blood 306 mg/dL (75-99)
[2021-05-06] MEDS: metFORMIN 500 MG TAB PO SCH (17:41)
[2021-05-06] MEDS: MELATONIN 5 MG TABLET PO SCH (20:24)
[2021-05-06] MEDS: ATORVASTATIN 20 MG TAB PO SCH (20:24)
[2021-05-06 20:47] LABS: Glucose,Whole Blood 298 mg/dL (75-99)
[2021-05-07] MEDS: PANTOPRAZOLE 40 MG TABLET PO SCH (06:17)
[2021-05-07] MEDS: POTASSIUM CHLORIDE ER 10 MEQ TAB.ER.PRT PO SCH ×2 (06:17→17:31)
[2021-05-07] MEDS: MIDODRINE 5 MG TAB PO SCH ×3 (06:17→17:31)
[2021-05-07] MEDS: FAMOTIDINE 20 MG TAB PO SCH (06:17)
[2021-05-07 06:28] LABS: Glucose,Whole Blood 193 mg/dL (75-99)
[2021-05-07] MEDS: INSULIN ASPART (NovoLOG) 100 UNIT/ML VIAL SQ SCH ×4 (06:43→21:41)
[2021-05-07] MEDS: DILTIAZEM CD 180 MG CAP.ER.24H PO SCH (08:57)
[2021-05-07] MEDS: ZINC SULFATE 220 MG CAP PO SCH (08:57)
[2021-05-07] MEDS: LOSARTAN 25 MG TAB PO SCH (08:57)
[2021-05-07] MEDS: CHOLECALCIFEROL 25 MCG (1000 IU) TABLET PO SCH (08:57)
[2021-05-07] MEDS: ISOSORBIDE MONONITRATE ER 15 MG TAB PO SCH (08:57)
[2021-05-07] MEDS: ASCORBIC ACID 500 MG TAB PO SCH ×2 (08:57→21:06)
[2021-05-07] MEDS: APIXABAN 2.5 MG TABLET PO SCH ×2 (08:58→21:06)
[2021-05-07] MEDS: FUROSEMIDE 10 MG/ML 4 ML VIAL IV SCH ×3 (08:58→21:06)
[2021-05-07] MEDS: METOPROLOL TARTRATE 50 MG TAB PO SCH ×2 (08:58→21:17)
[2021-05-07] MEDS: methylPREDNISolone SOD SUCCI 125 MG/2 ML VIAL IV SCH (08:58)
[2021-05-07] MEDS: Dapagliflozin Propanediol [Farxiga] PO SCH (08:59)
[2021-05-07] MEDS: ALBUTEROL HFA INHALER INHALATION SCH ×4 (09:02→21:32)
[2021-05-07] MEDS: TIOTROPIUM 2.5 MCG INHALER INHALATION SCH (09:03)
[2021-05-07] MEDS: SYMBICORT 160-4.5 MCG INHALER INHALATION SCH ×2 (09:03→21:33)
--- NOTE | 2021-05-07 09:07 | P.PN ---
Subjective Progress Note Date: 05/07/21 HISTORY OF PRESENT ILLNESS This is an 89-year old- female patient of mine with a previous medical history significant for hypertension and hypertensive cardiovascular disease, hyperlipidemia, Paroxysmal atrial fibrillation, 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 and steroid dependent has been doing fine with her O2 and Nebulized treatment at home till recently where she found to be more short of breath with increased coughing despite using her Updraft treatment, was recently hospitalized at [facility] after she was diagnosed with COVID-19 pneumonia she did receive Solu-Medrol 60 mg IV push every 6 hours along with Remdesivir and she was discharged home on Tuesday patient was doing fine on Tuesday however on Tuesday developed to have an increased shortness breath associated with increased swelling in both lower extremities patient was supposed to get Cardizem CD 360 mg for some reason was not called into her pharmacy, and she had stopped taking her Cardizem CD 240 she developed to have a significant atrial fibrillation with rapid ventricular response she became extreme short of breath , her daughter brought her to the emergency department at [facility] where she was found to have an acute diastolic heart failure she was started on Cardizem drip at 10 mg an hour, she was given Lasix 40 mg IV push every 8 hours, she was admitted to the hospital for acute diastolic heart failure patien had a chest x-ray that didn't show evidence of p ulmonary vascular congestion and she was admitted to the hospital for evaluation and treatment by cardiology on Pulmonary consultation was obtained.t 05/05: Patient will be resumed on Cardizem oral 360 mg. Unfortunately, this was not prescribed to her pharmacy at the time of discharge. She is currently on Cardizem drip and cardiology on consult. Patient states that she had a rough night and was tired. She was placed on AirVo this morning at 5 AM with pulse ox of 95% with FiO2 of 34. Heart rate is currently running in the 120s she's been afebrile, respiratory rate 28, blood pressure 118/70. Repeat blood work reveals WBC 19.9. Sodium 131, potassium 3.7, chloride 89, CO2 36, BUN 27 creatinine 0.85. Blood sugar 145. D-dimer 0.25. Total bilirubin 1.4. LDH 839. C- reactive protein 7.7. Pro-calcitonin 0.05. Repeat chest x-ray ordered for tomorrow. Discuss CODE STATUS with the patient she wishes to be full code. 05/06: Patient has been seen by cardiology and has been resumed on all her home medications, Cardizem drip discontinued. Heart rate is now in the 60s and 70s. gambling monitor atrial fibrillation. Blood pressure 125/81, pulse ox 96% on BiPAP 30% FiO2. She's been afebrile. Patient is also been seen by pulmonary medicine. Repeat chest x-ray this morning reveals limited rotated exam. COPD with patchy peripheral mid and lower lung infiltrates, left greater than right relatively similar. Capillary blood glucose running between 181 and 350. Patient states she had a good night and breathing is much better, wheezing is much better and cotinues with cough without sputum production. No change will be made in steroid and continue Solu-medrol 60 mg q6h. She had normal BM this morning. Consults with PT and OT added. She states she would rather go home verses rehab. 05/07: Patient has been afebrile, heart rate 78, blood pressure 117/62, pulse ox 95% on 3 L nasal cannula. Patient was on BiPAP during the night. Heart rate is improved today. She is sitting up eating breakfast. Capillary blood glucose running between 193 and was up to 306 yesterday afternoon. Solu-Medrol will be decreased to 40 mg every 8 hours, monitor patient overnight and probable discharge tomorrow. REVIEW OF SYSTEMS Constitutional: no fever no chills, no night sweats. No weight change. Reports weakness, Reports fatigue no lethargy. No daytime sleepiness. HEENT: No headache. No blurred vision or double vision, no loss of vision. No loss of Hearing, no ringing in the ears, no dizziness. No nasal drainage or congestion. No epistaxis. No sore throat, no loss of taste Lungs: Reports shortness of breath-improved, Reports cough, positive for sputum production. Reports wheezing. Cardiovascular: No chest pain, mild lower extremity edema. no palpitations. No paroxysmal nocturnal dyspnea. No orthopnea. No lightheadedness or dizziness. No syncopal episodes. Abdominal: No abdominal pain. No nausea, vomiting. No diarrhea. No consti pation. No bloody or tarry stools.. No loss of appetite. Genitourinary: No dysuria, increased frequency, urgency. No urinary retention. Musculoskeletal: No myalgias. positive for muscle weakness, no gait dysfunction, no frequent falls. No back pain. No neck pain. Integumentary: No wounds, no lesions. No rash or pruritus. No unusual bruising. Neurologic: No aphasia. No facial droop. No change in mentation. No head injury. No headache. No paralysis. No paresthesia. Psychiatric: No depression. No anxiety. Endocrine: Noted abnormal blood sugars. PHYSICAL EXAMINATION Gen: This is an 89-year-old female, lying down in bed in no acute distress currently on nasal cannula. HEENT: Head is atraumatic, normocephalic. Pupils equal, round. Sclerae is a nicteric, mucous membranes of the mouth are somewhat dry. NECK: Supple. No JVD. No lymphadenopathy. No thyromegaly, decreased carotid upstrokes bilaterally. Chest: decrease breath sounds at the bases with few ronchi , minimal expiratory wheezes no chest wall tenderness no intercostal retractions. Heart: first heart sound is depressed second heart sound is normal there FLORY 2/6 located at the left sternal border, irregularly irregular due to atrial fibrillation. ABDOMEN: Soft, nontender, nondistended, positive bowel sounds, no hepatosplenomegaly. EXTREMITIES: +1 pedal edema. No calf tenderness. Dorsalis pedis +1 bilaterally. NEUROLOGICAL: Patient is awake, alert and oriented x3. Cranial nerves 2 through 12 are grossly intact muscle christopher 4 out of 5 in upper and lower extremities bilaterally., ASSESSMENT AND PLAN 1. Acute hypoxemic respiratory failure due acute diastolic heart failure. Lasix 40 mg IV push every 8 hours, discontinue Cardizem drip, continue digoxin 62.5 mg orally once every day, continue metoprolol 100 mg orally twice every day, resume Cardizem oral 360 mg. cardiology consultation appreciated. 2. Atrial fibrillation, paroxysmal. Patient currently in A. fib. Cardiology consult. Continue Digoxin 125 mcg orally daily, Cardizem CD 240 mg orally daily, Metoprolol 100 mg orally bid and Eliquis 2.5 mg orally bid. 3. Acute exacerbation of COPD with a prior history of COVID-19 pneumonia. Continue Solu-Medrol decreased 40 mg IV push every 8 hours, DuoNeb 3 mL nebulization 4 times every day, Pulmicort 1 mg Patient twice every day, apply the patient oxygen at 3 L nasal cannula, pulmonary consultation appreciated. 4. Hypertension and hypertensive cardiovascular disease. Continue Losartn 25 mg orally daily, Metoprolol 100 mg orally bid. 5. Hyperlipidemia. Continue Lipitor 20 mg orally daily. 6. Chronic diastolic heart failure. we will continue with Lasix 20 mg orally bid, Losartan 25 mg orally daily and Metoprolol 100 mg orally bid and Lasix 40 mg IV push every 8 hours. 7. 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 we will continue with above treatment. 8. GERD. we will continue with Protonix 40 mg orally daily and Pepcid 20 mg po bid 9. CAD. Continue with Metoprolol 100 mg orally bid, Lipitor 20 mg orally daily and Imdur 15 mg orally daily. 10. 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 we will continue with Metformin 1000 mg orally with supper and Farxiga 5 mg orally daily, we will start sliding scale insulin. 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 we will hold off Residronate. 12. DVT prophylaxis. Continue eliquis. 2.5 mg orally bid. 13. GI Prophylaxis. we will continue with protonix 40 mg orally daily and pepcid 20 mg orally bid CODE STATUS: Full code DISCHARGE PLAN Home without home care on Tuesday. Impression and plan of care have been directed as dictated by the signing physician. Noelle Gilbert nurse practitioner acting as scribe for signing physician. Objective - Vital Signs Vital signs: Vital Signs Temp 97.6 F 05/07/21 04:00 Pulse 78 05/07/21 04:00 Resp 18 05/07/21 04:00 BP 117/62 05/07/21 04:00 Pulse Ox 95 05/07/21 04:00 Intake & Output 05/06/21 05/07/21 05/07/21 18:59 06:59 18:59 Intake Total 356 Output Total 300 900 Balance 56 -900 Weight 105.5 kg Intake: Oral 356 Output: Urine 300 900 Other: Voiding Method Bedside Commode Bedside Commode External Catheter Diaper # Voids 1 # Bowel Movements 1 - Labs CBC & Chem 7: 05/06/21 07:55 05/06/21 07:55 Labs: Abnormal Lab Results - Last 24 Hours (Table) 05/06/21 05/06/21 05/06/21 Range/Units 07:55 07:55 11:52 WBC 22.0 H (3.8-10.6) k/uL Hct 46.4 H (34.0-46.0) % Neutrophils # 20.9 H (1.3-7.7) k/uL Lymphocytes # 0.5 L (1.0-4.8) k/uL Sodium 132 L (137-145) mmol/L Chloride 88 L (98-107) mmol/L Carbon Dioxide 34 H (22-30) mmol/L BUN 38 H (7-17) mg/dL Creatinine 1.06 H (0.52-1.04) mg/dL Glucose 203 H (74-99) mg/dL POC Glucose (mg/dL) 251 H (75-99) mg/dL Total Protein 5.7 L (6.3-8.2) g/dL Albumin 3.3 L (3.5-5.0) g/dL 05/06/21 05/06/21 05/07/21 Range/Units 16:58 20:46 06:27 WBC (3.8-10.6) k/uL Hct (34.0-46.0) % Neutrophils # (1.3-7.7) k/uL Lymphocytes # (1.0-4.8) k/uL Sodium (137-145) mmol/L Chloride (98-107) mmol/L Carbon Dioxide (22-30) mmol/L BUN (7-17) mg/dL Creatinine (0.52-1.04) mg/dL Glucose (74-99) mg/dL POC Glucose (mg/dL) 306 H 298 H 193 H (75-99) mg/dL Total Protein (6.3-8.2) g/dL Albumin (3.5-5.0) g/dL
[2021-05-07 11:55] LABS: Glucose,Whole Blood 255 mg/dL (75-99)
[2021-05-07] MEDS: CYANOCOBALAMIN 500 MCG TAB PO SCH (13:27)
[2021-05-07] MEDS: MAGNESIUM OXIDE 400 MG TAB PO SCH (13:27)
[2021-05-07] MEDS: CALCIUM CARBONATE 500 MG CHEWABLE PO SCH (13:27)
--- NOTE | 2021-05-07 14:58 | P.PN ---
Subjective Progress Note Date: 05/07/21 Principal diagnosis: Recent COVID-19 infection, A. fib with RVR, acute CHF exacerbation 89-year-old white female patient who follows with Dr. 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 Patient was treated with steroids, bronchodilators, diuretics, and she has completed a course of Remdesivir. She was feeling better, breathing much easier, she was off BiPAP support, she was discharged home on 05/01/2021. On 05/04/2021 patient came to the emergency department per EMS for evaluation of worsening shortness of breath that she started experiencing at nighttime. Patient felt that her heart was racing, she was found to be in A. fib with RVR in the emergency department. He was doing her breathing treatments but it was not helping. She had a low-grade fever in [facility] emergency department. Lab work on admission showed leukocytosis with a white count of 17.8, however patient was completing prednisone taper at home, CMP revealed mild dehydration, otherwise it was unremarkable. Troponin was within normal limits, proBNP was elevated at 9460. Chest x-ray showed no acute cardiopulmonary process. She was very dyspneic, and bronchospastic, in the emergency department she was started on IV Lasix 40 mg every 8 hours, she was started on a Cardizem infusion for rate control, she takes Eliquis for chronic anticoagulation at home, she was started on nebulized bronchodilators, and IV steroids. Follow-up chest x-ray today showing mild pulmonary congestion, but no pleural fluid to suggest heart failure. She is breathing easier, she was placed on Airvo at 50 L and FiO2 34%, her pulse ox is 95-96%. Still mildly wheezy and dyspneic, but no acute distress. Overall is feeling better. On 05/06/2021 patient seen in follow-up on selective care unit, she is breathing much easier today, she is on 3 L of oxygen pulse ox is 97%. She did wear BiPAP support last night, FiO2 of 30%, maintained O2 saturations at 96-97%, she's been afebrile, she remains on diuretics with IV Lasix 40 mg every 8 hours, she is maintaining negative fluid balance. She remains in atrial fibrillation with a controlled rate. She is on Eliquis 2.5 mg twice daily, metoprolol 100 mg twice daily, but etiology is following. Patient is also on Cardizem CD 360 mg daily. She remains on IV Solu-Medrol 60 mg every 8 hours 4 acute exacerbation of COPD. Today's labs have been reviewed showing white blood cell count 22, hemoglobin is 14, sodium is 132, potassium is 4.4, chloride is 88, BUN is 30 a creatinine is 1.06. Today's chest x-ray shows patchy peripheral mid and lower lung infilt rates, left greater than right relatively similar to the previous chest x-ray On patient seen in follow-up on selective care unit, she sitting up in the chair, in no acute distress, she remains on IV Lasix 40 mg every 8 hours, she's breathing much more comfortably since admission, she remains on steroids, she is currently on 3 L of oxygen, her pulse ox is 90-95%, she said no fever or chills, no complaint of chest pain. -600 mL Fluid balance over the last 24 hours, she did wear BiPAP support in last night, tolerates it very well, she states she feels better with BiPAP. Less short of breath and less coughing. No new labs chest x-rays today. Pro-calcitonin level was negative at 0.05. Objective - Vital Signs Vital signs: Vital Signs Temp 97.9 F 05/07/21 13:30 Pulse 63 05/07/21 13:30 Resp 18 05/07/21 13:30 BP 109/56 05/07/21 13:30 Pulse Ox 90 L 05/07/21 13:30 Intake & Output 05/06/21 05/07/21 05/07/21 18:59 06:59 18:59 Intake Total 356 360 Output Total 300 900 400 Balance 56 -900 -40 Weight 105.5 kg Intake: Oral 356 360 Output: Urine 300 900 400 Other: Voiding Method Bedside Commode Bedside Commode External Catheter Diaper # Voids 1 # Bowel Movements 1 2 - Exam GENERAL EXAM: Alert, 89-year-old white female patient on 3 L of oxygen pulse ox of 96% comfortable in no apparent distress. HEAD: Normocephalic/atraumatic. EYES: Normal reaction of pupils, equal size. Conjunctiva pink, sclera white. NOSE: Clear with pink turbinates. THROAT: No erythema or exudates. NECK: No masses, no JVD, no thyroid enlargement, no adenopathy. CHEST: No chest wall deformity. Symmetrical expansion. LUNGS: Equal air entry with diminished breath sounds mild crackles and wheezes CVS: Irregular rate and rhythm, normal S1 and S2, no gallops, no murmurs, no rubs ABDOMEN: Soft, nontender. No hepatosplenomegaly, normal bowel sounds, no guarding or rigidity. EXTREMITIES: No clubbing, no edema, no cyanosis, 2+ pulses and upper and lower extremities. MUSCULOSKELETAL: Muscle strength and tone normal. SPINE: No scoliosis or deformity SKIN: No rashes CENTRAL NERVOUS SYSTEM: Alert and oriented -3. No focal deficits, tone is normal in all 4 extremities. PSYCHIATRIC: Alert and oriented -3. Appropriate affect. Intact judgment and insight. - Labs CBC & Chem 7: 05/06/21 07:55 05/06/21 07:55 Labs: Abnormal Lab Results - Last 24 Hours (Table) 05/06/21 05/06/21 05/07/21 Range/Units 16:58 20:46 06:27 POC Glucose (mg/dL) 306 H 298 H 193 H (75-99) mg/dL 05/07/21 Range/Units 11:52 POC Glucose (mg/dL) 255 H (75-99) mg/dL Assessment and Plan Plan: Assessment: #1. Acute on chronic dyspnea, multifactorial, related to acute exacerbation of COPD, and CHF with diastolic dysfunction and A. fib with RVR #2. A. fib with RVR, currently better controlled on a combination of metoprolol, oral Cardizem CD, and patient is on Eliquis for anticoagulation #3. Recent hospitalization for COVID-19 infection, COPD and CHF exacerbation, discharged home on 05/01/2021. Patient is status post completed COVID-19 vaccination. Patient completed a course of Remdesivir while in the hospital and IV steroids, oral anticoagulation, and COVID-19 vitamins #4. Advanced COPD on home oxygen and maintenance dose prednisone #5. Chronic diastolic congestive heart failure #6. Former smoker, currently in remission, carries [id number] smoking history #7. Paroxysmal A. fib, on Eliquis #8. Benign essential hypertension #9. History of dual-chamber pacemaker insertion for history of sinus pauses #10. Moderate pulmonary hypertension Plan: no acute events overnight Continue current medical treatment Continue IV Solu-Medrol Continue diuretics Continue oral anticoagulation in the form of Eliquis BiPAP support at bedtime as needed for dyspnea and hypoxia Follow-up labs including electrolytes and renal profile tomorrow CXR in am If contiues to improve, may consider discharge in am Continue to follow I performed a history & physical examination of the patient and discussed their management with my nurse practitioner, Kenna Evrin. I reviewed the nurse practitioner's note and agree with the documented findings and plan of care. Lung sounds are positive for diffuse wheezes throughout the lung cotto. The findings and the impression was discussed with the patient. I attest to the documentation by the nurse practitioner. Time with Patient: Less than 30
[2021-05-07] MEDS ORDERED: methylPREDNISolone SOD SUCCI 40 MG/ML 1 ML VIAL IV SCH (16:00)
[2021-05-07] MEDS: DIGOXIN 125 MCG TAB PO SCH (16:28)
[2021-05-07 16:48] LABS: Glucose,Whole Blood 364 mg/dL (75-99)
[2021-05-07] MEDS: metFORMIN 500 MG TAB PO SCH (17:31)
[2021-05-07] MEDS: methylPREDNISolone SOD SUCCI 40 MG/ML 1 ML VIAL IV SCH (21:06)
[2021-05-07] MEDS: MELATONIN 5 MG TABLET PO SCH (21:06)
[2021-05-07] MEDS: ATORVASTATIN 20 MG TAB PO SCH (21:06)
[2021-05-07 21:11] LABS: Glucose,Whole Blood 239 mg/dL (75-99)
[2021-05-08] MEDS: FAMOTIDINE 20 MG TAB PO SCH (06:13)
[2021-05-08] MEDS: PANTOPRAZOLE 40 MG TABLET PO SCH (06:13)
[2021-05-08] MEDS: POTASSIUM CHLORIDE ER 10 MEQ TAB.ER.PRT PO SCH ×2 (06:13→17:07)
[2021-05-08] MEDS: INSULIN ASPART (NovoLOG) 100 UNIT/ML VIAL SQ SCH ×5 (06:13→19:59)
[2021-05-08 06:15] LABS: Glucose,Whole Blood 205 mg/dL (75-99)
--- NOTE | 2021-05-08 07:35 | XR ---
EXAMINATION TYPE: XR chest 1V portable DATE OF EXAM: 05/08/2021 COMPARISON: 05/06/2021 INDICATION: Covid TECHNIQUE: Single frontal view of the chest is obtained. FINDINGS: The heart size is mildly prominent. The pulmonary vasculature is normal. Mild left lower lobe infiltrate is present. There is blunting of the left costophrenic angle. Pacemak er overlies left chest. IMPRESSION: 1. Left lower lobe infiltrate. Correlate for atelectasis or pneumonia. Atypical pneumonia is within t he differential.
[2021-05-08] MEDS: MIDODRINE 5 MG TAB PO SCH ×3 (07:36→17:07)
[2021-05-08] MEDS: methylPREDNISolone SOD SUCCI 40 MG/ML 1 ML VIAL IV SCH ×2 (08:21→19:58)
[2021-05-08] MEDS: FUROSEMIDE 10 MG/ML 4 ML VIAL IV SCH ×2 (08:21→19:59)
[2021-05-08] MEDS: METOPROLOL TARTRATE 50 MG TAB PO SCH ×2 (08:22→19:58)
[2021-05-08] MEDS: APIXABAN 2.5 MG TABLET PO SCH ×2 (08:22→19:58)
[2021-05-08] MEDS: ASCORBIC ACID 500 MG TAB PO SCH ×2 (08:22→19:58)
[2021-05-08] MEDS: LOSARTAN 25 MG TAB PO SCH (08:22)
[2021-05-08] MEDS: ZINC SULFATE 220 MG CAP PO SCH (08:22)
[2021-05-08] MEDS: CHOLECALCIFEROL 25 MCG (1000 IU) TABLET PO SCH (08:23)
[2021-05-08] MEDS: Dapagliflozin Propanediol [Farxiga] PO SCH (08:23)
[2021-05-08] MEDS: DILTIAZEM CD 180 MG CAP.ER.24H PO SCH (08:23)
[2021-05-08] MEDS: ISOSORBIDE MONONITRATE ER 15 MG TAB PO SCH (08:23)
[2021-05-08] MEDS: ALBUTEROL HFA INHALER INHALATION SCH ×4 (09:22→20:22)
[2021-05-08] MEDS: SYMBICORT 160-4.5 MCG INHALER INHALATION SCH ×2 (09:22→20:22)
[2021-05-08] MEDS: TIOTROPIUM 2.5 MCG INHALER INHALATION SCH (09:23)
[2021-05-08 09:57] LABS: Basophils % (A) 0 %; Eosinophils % (A) 0 %; HCT 41.3 % (34.0-46.0); HGB 12.9 gm/dL (11.4-16.0); Lymphocytes # (A) 0.3 k/uL (1.0-4.8); Lymphocytes % (A) 2 %; MCH 29.7 pg (25.0-35.0); MCHC 31.1 g/dL (31.0-37.0); MCV 95.4 fL (80.0-100.0); Mean Platelet Volume 7.5; Monocytes # (A) 0.5 k/uL (0-1.0); Monocytes % (A) 3 %; Neutrophils # (A) 19.2 k/uL (1.3-7.7); Neutrophils % (A) 96 %; Platelet Count 193 k/uL (150-450); RBC 4.33 m/uL (3.80-5.40); RDW 14.1 % (11.5-15.5); WBC 20.1 k/uL (3.8-10.6)
[2021-05-08 10:08] LABS: ALT 27 U/L (4-34); AST 28 U/L (14-36); African American GFR (CKD) 54 (>60 ml/min/1.73 sqM); Albumin 2.9 g/dL (3.5-5.0); Alkaline Phosphatase 65 U/L (38-126); Anion Gap 9 mmol/L; Blood Urea Nitrogen 46 mg/dL (7-17); Calcium 8.2 mg/dL (8.4-10.2); Carbon Dioxide 34 mmol/L (22-30); Chloride 87 mmol/L (98-107); Digoxin <0.4 ng/mL; Glucose 266 mg/dL (74-99); Non-African American GFR(CKD) 47 (>60 ml/min/1.73 sqM); Potassium 3.8 mmol/L (3.5-5.1); Sodium 130 mmol/L (137-145); Total Bilirubin 0.7 mg/dL (0.2-1.3); Total Protein 5.2 g/dL (6.3-8.2)
[2021-05-08 12:14] LABS: Glucose,Whole Blood 206 mg/dL (75-99)
[2021-05-08] MEDS: CYANOCOBALAMIN 500 MCG TAB PO SCH (12:21)
[2021-05-08] MEDS: CALCIUM CARBONATE 500 MG CHEWABLE PO SCH (12:21)
[2021-05-08] MEDS: MAGNESIUM OXIDE 400 MG TAB PO SCH (12:21)
--- NOTE | 2021-05-08 14:49 | P.PN ---
Subjective Progress Note Date: 05/08/21 HISTORY OF PRESENT ILLNESS This is an 89-year old- female patient of mine with a previous medical history significant for hypertension and hypertensive cardiovascular disease, hyperlipidemia, Paroxysmal atrial fibrillation, 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 and steroid dependent has been doing fine with her O2 and Nebulized treatment at home till recently where she found to be more short of breath with increased coughing despite using her Updraft treatment, was recently hospitalized at [facility] after she was diagnosed with COVID-19 pneumonia she did receive Solu-Medrol 60 mg IV push every 6 hours along with Remdesivir and she was discharged home on Tuesday patient was doing fine on Tuesday however on Tuesday developed to have an increased shortness breath associated with increased swelling in both lower extremities patient was supposed to get Cardizem CD 360 mg for some reason was not called into her pharmacy, and she had stopped taking her Cardizem CD 240 she developed to have a significant atrial fibrillation with rapid ventricular response she became extreme short of breath , her daughter brought her to the emergency department at [facility] where she was found to have an acute diastolic heart failure she was started on Cardizem drip at 10 mg an hour, she was given Lasix 40 mg IV push every 8 hours, she was admitted to the hospital for acute diastolic heart failure patien had a chest x-ray that didn't show evidence of p ulmonary vascular congestion and she was admitted to the hospital for evaluation and treatment by cardiology on Pulmonary consultation was obtained.t 05/05: Patient will be resumed on Cardizem oral 360 mg. Unfortunately, this was not prescribed to her pharmacy at the time of discharge. She is currently on Cardizem drip and cardiology on consult. Patient states that she had a rough night and was tired. She was placed on AirVo this morning at 5 AM with pulse ox of 95% with FiO2 of 34. Heart rate is currently running in the 120s she's been afebrile, respiratory rate 28, blood pressure 118/70. Repeat blood work reveals WBC 19.9. Sodium 131, potassium 3.7, chloride 89, CO2 36, BUN 27 creatinine 0.85. Blood sugar 145. D-dimer 0.25. Total bilirubin 1.4. LDH 839. C- reactive protein 7.7. Pro-calcitonin 0.05. Repeat chest x-ray ordered for tomorrow. Discuss CODE STATUS with the patient she wishes to be full code. 05/06: Patient has been seen by cardiology and has been resumed on all her home medications, Cardizem drip discontinued. Heart rate is now in the 60s and 70s. color television console monitor atrial fibrillation. Blood pressure 125/81, pulse ox 96% on BiPAP 30% FiO2. She's been afebrile. Patient is also been seen by pulmonary medicine. Repeat chest x-ray this morning reveals limited rotated exam. COPD with patchy peripheral mid and lower lung infiltrates, left greater than right relatively similar. Capillary blood glucose running between 181 and 350. Patient states she had a good night and breathing is much better, wheezing is much better and cotinues with cough without sputum production. No change will be made in steroid and continue Solu-medrol 60 mg q6h. She had normal BM this morning. Consults with PT and OT added. She states she would rather go home verses rehab. 05/07: Patient has been afebrile, heart rate 78, blood pressure 117/62, pulse ox 95% on 3 L nasal cannula. Patient was on BiPAP during the night. Heart rate is improved today. She is sitting up eating breakfast. Capillary blood glucose running between 193 and was up to 306 yesterday afternoon. Solu-Medrol will be decreased to 40 mg every 8 hours, monitor patient overnight and probable discharge tomorrow. 05/08: Repeat chest x-ray reveals left lower lobe infiltrate. Correlate for ate lectasis or pneumonia. Atypical pneumonia is within the differential. Pro- calcitonin was negative at 0.05. Patient remains afebrile, heart rate 72, blood pressure 146/80, pulse ox 90% on 30% FiO2 on BiPAP. Patient was on BiPAP during the night and transition to nasal cannula at 3 L in the morning. color television console monitor is atrial fibrillation with controlled rate. Blood sugars remain high but are trending downward 205-364 overnight. Patient has been followed closely by pulmonary medicine. Patient states that her breathing has been improved since she arrived but she does not feel is close enough to her baseline to go home safely. She is continued on IV Lasix and IV Solu-Medrol. We will plan to monitor patient overnight and plan for discharge home tomorrow. REVIEW OF SYSTEMS Constitutional: no fever no chills, no night sweats. No weight change. Reports weakness, Reports fatigue no lethargy. No daytime sleepiness. HEENT: No headache. No blurred vision or double vision, no loss of vision. No loss of Hearing, no ringing in the ears, no dizziness. No nasal drainage or congestion. No epistaxis. No sore throat, no loss of taste Lungs: Reports shortness of breath-improved, Reports cough, positive for sputum production. Reports wheezing. Cardiovascular: No chest pain, mild lower extremity edema. no palpitations. No paroxysmal nocturnal dyspnea. No orthopnea. No lightheadedness or dizziness. No syncopal episodes. Abdominal: No abdominal pain. No nausea, vomiting. No diarrhea. No constipation. No bloody or tarry stools.. No loss of appetite. Genitourinary: No dysuria, increased frequency, urgency. No urinary retention. Musculoskeletal: No myalgias. positive for muscle weakness, no gait dysfunction, no frequent falls. No back pain. No neck pain. Integumentary: No wounds, no lesions. No rash or pruritus. No unusual bruising. Neurologic: No aphasia. No facial droop. No change in mentation. No head injury. No headache. No paralysis. No paresthesia. Psychiatric: No depression. No anxiety. Endocrine: Noted elevated blood sugars. PHYSICAL EXAMINATION Gen: This is an 89-year-old female, sitting on the edge of the bed in no acute distress currently on nasal cannula oxygen. HEENT: Head is atraumatic, normocephalic. Pupils equal, round. Sclerae is anicteric, mucous membranes of the mouth are somewhat dry. NECK: Supple. No JVD. No lymphadenopathy. No thyromegaly, decreased carotid upstrokes bilaterally. Chest: decrease breath sounds at the bases with few ronchi , minimal expiratory wheezes no chest wall tenderness no intercostal retractions. Heart: first heart sound is depressed second heart sound is normal there FLORY 2/6 located at the left sternal border, irregularly irregular due to atrial fibrillation. ABDOMEN: Soft, nontender, nondistended, positive bowel sounds, no hepatosplenomegaly. EXTREMITIES: +1 pedal edema. No calf tenderness. Dorsalis pedis +1 bilateral ly. NEUROLOGICAL: Patient is awake, alert and oriented x3. Cranial nerves 2 through 12 are grossly intact muscle christopher 4 out of 5 in upper and lower extremities bilaterally., ASSESSMENT AND PLAN 1. Acute hypoxemic respiratory failure due acute diastolic heart failure. Las ix 40 mg IV push every 12 hours, discontinue Cardizem drip, continue digoxin 62.5 mg orally once every day, continue metoprolol 100 mg orally twice every day, resume Cardizem oral 360 mg. cardiology consultation appreciated. 2. Atrial fibrillation, paroxysmal. Patient currently in A. fib. Cardiology consult. Continue Digoxin 125 mcg orally daily, Cardizem CD 240 mg orally daily, Metoprolol 100 mg orally bid and Eliquis 2.5 mg orally bid. 3. Acute exacerbation of COPD with a prior history of COVID-19 pneumonia. Continue Solu-Medrol decreased 40 mg IV push every 8 hours, DuoNeb 3 mL n ebulization 4 times every day, Pulmicort 1 mg Patient twice every day, apply the patient oxygen at 3 L nasal cannula, pulmonary consultation appreciated. 4. Hypertension and hypertensive cardiovascular disease. Continue Losartn 25 mg orally daily, Metoprolol 100 mg orally bid. 5. Hyperlipidemia. Continue Lipitor 20 mg orally daily. 6. Chronic diastolic heart failure. we will continue with Lasix 20 mg orally bid, Losartan 25 mg orally daily and Metoprolol 100 mg orally bid and Lasix 40 mg IV push every 8 hours. 7. 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 we will continue with above treatment. 8. GERD. we will continue with Protonix 40 mg orally daily and Pepcid 20 mg po bid 9. CAD. Continue with Metoprolol 100 mg orally bid, Lipitor 20 mg orally daily and Imdur 15 mg orally daily. 10. 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 we will continue with Metformin 1000 mg orally with supper and Farxiga 5 mg orally daily, continue NovoLog 3 units with meals and sliding scale insulin. 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 we will hold off Residronate. 12. DVT prophylaxis. Continue eliquis. 2.5 mg orally bid. 13. GI Prophylaxis. we will continue with protonix 40 mg orally daily and pepcid 20 mg orally bid CODE STATUS: Full code DISCHARGE PLAN Home without home care on Tuesday. Impression and plan of care have been directed as dictated by the signing physician. Noelle Gilbert nurse practitioner acting as scribe for signing physician. Objective - Vital Signs Vital signs: Vital Signs Temp 98.3 F 05/08/21 08:20 Pulse 68 05/08/21 12:50 Resp 18 05/08/21 12:50 BP 111/58 05/08/21 12:50 Pulse Ox 92 L 05/08/21 12:50 Intake & Output 05/07/21 05/08/21 05/08/21 18:59 06:59 18:59 Intake Total 360 480 530 Output Total 400 700 200 Balance -40 -220 330 Weight 70 kg Intake: Oral 360 480 530 Output: Urine 400 700 200 Other: Voiding Method Bedside Commode Diaper # Voids 3 # Bowel Movements 2 2 - Labs CBC & Chem 7: 05/08/21 08:51 05/08/21 08:51 Labs: Abnormal Lab Results - Last 24 Hours (Table) 05/07/21 05/07/21 05/08/21 Range/Units 16:45 20:56 05:37 WBC (3.8-10.6) k/uL Neutrophils # (1.3-7.7) k/uL Lymphocytes # (1.0-4.8) k/uL Sodium (137-145) mmol/L Chloride (98-107) mmol/L Carbon Dioxide (22-30) mmol/L BUN (7-17) mg/dL Creatinine (0.52-1.04) mg/dL Glucose (74-99) mg/dL POC Glucose (mg/dL) 364 H 239 H 205 H (75-99) mg/dL Calcium (8.4-10.2) mg/dL Total Protein (6.3-8.2) g/dL Albumin (3.5-5.0) g/dL 05/08/21 05/08/21 05/08/21 Range/Units 08:51 08:51 12:12 WBC 20.1 H (3.8-10.6) k/uL Neutrophils # 19.2 H (1.3-7.7) k/uL Lymphocytes # 0.3 L (1.0-4.8) k/uL Sodium 130 L (137-145) mmol/L Chloride 87 L (98-107) mmol/L Carbon Dioxide 34 H (22-30) mmol/L BUN 46 H (7-17) mg/dL Creatinine 1.06 H (0.52-1.04) mg/dL Glucose 266 H (74-99) mg/dL POC Glucose (mg/dL) 206 H (75-99) mg/dL Calcium 8.2 L (8.4-10.2) mg/dL Total Protein 5.2 L (6.3-8.2) g/dL Albumin 2.9 L (3.5-5.0) g/dL
[2021-05-08] MEDS: DIGOXIN 125 MCG TAB PO SCH (15:31)
--- NOTE | 2021-05-08 15:45 | P.PN ---
Subjective Progress Note Date: 05/08/21 Principal diagnosis: Recent COVID-19 infection, A. fib with RVR, acute CHF exacerbation 89-year-old white female patient who follows with Dr. 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 Patient was treated with steroids, bronchodilators, diuretics, and she has completed a course of Remdesivir. She was feeling better, breathing much easier, she was off BiPAP support, she was discharged home on 05/01/2021. On 05/04/2021 patient came to the emergency department per EMS for evaluation of worsening shortness of breath that she started experiencing at nighttime. Patient felt that her heart was racing, she was found to be in A. fib with RVR in the emergency department. He was doing her breathing treatments but it was not helping. She had a low-grade fever in [facility] emergency department. Lab work on admission showed leukocytosis with a white count of 17.8, however patient was completing prednisone taper at home, CMP revealed mild dehydration, otherwise it was unremarkable. Troponin was within normal limits, proBNP was elevated at 9460. Chest x-ray showed no acute cardiopulmonary process. She was very dyspneic, and bronchospastic, in the emergency department she was started on IV Lasix 40 mg every 8 hours, she was started on a Cardizem infusion for rate control, she takes Eliquis for chronic anticoagulation at home, she was started on nebulized bronchodilators, and IV steroids. Follow-up chest x-ray today showing mild pulmonary congestion, but no pleural fluid to suggest heart failure. She is breathing easier, she was placed on Airvo at 50 L and FiO2 34%, her pulse ox is 95-96%. Still mildly wheezy and dyspneic, but no acute distress. Overall is feeling better. On 05/06/2021 patient seen in follow-up on selective care unit, she is breathing much easier today, she is on 3 L of oxygen pulse ox is 97%. She did wear BiPAP support last night, FiO2 of 30%, maintained O2 saturations at 96-97%, she's been afebrile, she remains on diuretics with IV Lasix 40 mg every 8 hours, she is maintaining negative fluid balance. She remains in atrial fibrillation with a controlled rate. She is on Eliquis 2.5 mg twice daily, metoprolol 100 mg twice daily, but etiology is following. Patient is also on Cardizem CD 360 mg daily. She remains on IV Solu-Medrol 60 mg every 8 hours 4 acute exacerbation of COPD. Today's labs have been reviewed showing white blood cell count 22, hemoglobin is 14, sodium is 132, potassium is 4.4, chloride is 88, BUN is 30 a creatinine is 1.06. Today's chest x-ray shows patchy peripheral mid and lower lung infilt rates, left greater than right relatively similar to the previous chest x-ray On patient seen in follow-up on selective care unit, she sitting up in the chair, in no acute distress, she remains on IV Lasix 40 mg every 8 hours, she's breathing much more comfortably since admission, she remains on steroids, she is currently on 3 L of oxygen, her pulse ox is 90-95%, she said no fever or chills, no complaint of chest pain. -600 mL Fluid balance over the last 24 hours, she did wear BiPAP support in last night, tolerates it very well, she states she feels better with BiPAP. Less short of breath and less coughing. No new labs chest x-rays today. Pro-calcitonin level was negative at 0.05. On 05/08/2021 patient seen in follow-up on selective care unit, she is awake and alert, in no acute distress, she sitting up in the recliner, breathing much more comfortably, currently on 3 L of oxygen her pulse ox is 92-97%, she did wear BiPAP support last night, tolerates it well, no complaints of worsening dyspnea no complaints of chest discomfort. She has been diuresed, today's chest x-ray shows left lower lobe infiltrate, there is blunting of the left costophrenic angle. She is in -260 mL net fluid balance, however this is nonicteric intake and output no fluid balance as some of the voids have been recorded as occurrences not amounts. Today's labs have been reviewed, blood cell count is 20.1, slightly improved, hemoglobin is 12.3, sodium is 1:30, potassium 3.8, chloride is 87, CO2 34, BUN is 46, creatinine is 1.06. Lower extremity edema has improved. Patient states she has had some lower blood pressures today, and her dose of Lasix was adjusted and cut back to 40 mg every 12 hours, she also continues on IV Solu-Medrol 40 mg every 12 hours and nebulized bronchodilators, she is on Eliquis for history of atrial fibrillation, her heart rate is currently poorly controlled. Cardiology is following. Objective - Vital Signs Vital signs: Vital Signs Temp 98.3 F 05/08/21 08:20 Pulse 68 05/08/21 12:50 Resp 18 05/08/21 12:50 BP 111/58 05/08/21 12:50 Pulse Ox 92 L 05/08/21 12:50 Intake & Output 05/07/21 05/08/21 05/08/21 18:59 06:59 18:59 Intake Total 360 480 530 Output Total 400 700 200 Balance -40 -220 330 Weight 70 kg Intake: Oral 360 480 530 Output: Urine 400 700 200 Other: Voiding Method Bedside Commode Diaper # Voids 3 # Bowel Movements 2 2 - Exam GENERAL EXAM: Alert, 89-year-old white female patient on 3 L of oxygen pulse ox of 96% comfortable in no apparent distress. HEAD: Normocephalic/atraumatic. EYES: Normal reaction of pupils, equal size. Conjunctiva pink, sclera white. NOSE: Clear with pink turbinates. THROAT: No erythema or exudates. NECK: No masses, no JVD, no thyroid enlargement, no adenopathy. CHEST: No chest wall deformity. Symmetrical expansion. LUNGS: Equal air entry with diminished breath sounds mild crackles and wheezes CVS: Irregular rate and rhythm, normal S1 and S2, no gallops, no murmurs, no rubs ABDOMEN: Soft, nontender. No hepatosplenomegaly, normal bowel sounds, no guarding or rigidity. EXTREMITIES: No clubbing, 1+ edema, no cyanosis, 2+ pulses and upper and lower extremities. MUSCULOSKELETAL: Muscle strength and tone normal. SPINE: No scoliosis or deformity SKIN: No rashes CENTRAL NERVOUS SYSTEM: Alert and oriented -3. No focal deficits, tone is normal in all 4 extremities. PSYCHIATRIC: Alert and oriented -3. Appropriate affect. Intact judgment and insight. - Labs CBC & Chem 7: 05/08/21 08:51 05/08/21 08:51 Labs: Abnormal Lab Results - Last 24 Hours (Table) 05/07/21 05/07/21 05/08/21 Range/Units 16:45 20:56 05:37 WBC (3.8-10.6) k/uL Neutrophils # (1.3-7.7) k/uL Lymphocytes # (1.0-4.8) k/uL Sodium (137-145) mmol/L Chloride (98-107) mmol/L Carbon Dioxide (22-30) mmol/L BUN (7-17) mg/dL Creatinine (0.52-1.04) mg/dL Glucose (74-99) mg/dL POC Glucose (mg/dL) 364 H 239 H 205 H (75-99) mg/dL Calcium (8.4-10.2) mg/dL Total Protein (6.3-8.2) g/dL Albumin (3.5-5.0) g/dL 05/08/21 05/08/21 05/08/21 Range/Units 08:51 08:51 12:12 WBC 20.1 H (3.8-10.6) k/uL Neutrophils # 19.2 H (1.3-7.7) k/uL Lymphocytes # 0.3 L (1.0-4.8) k/uL Sodium 130 L (137-145) mmol/L Chloride 87 L (98-107) mmol/L Carbon Dioxide 34 H (22-30) mmol/L BUN 46 H (7-17) mg/dL Creatinine 1.06 H (0.52-1.04) mg/dL Glucose 266 H (74-99) mg/dL POC Glucose (mg/dL) 206 H (75-99) mg/dL Calcium 8.2 L (8.4-10.2) mg/dL Total Protein 5.2 L (6.3-8.2) g/dL Albumin 2.9 L (3.5-5.0) g/dL Assessment and Plan Plan: Assessment: #1. Acute on chronic dyspnea, multifactorial, related to acute exacerbation of COPD, and CHF with diastolic dysfunction and A. fib with RVR #2. A. fib with RVR, currently better controlled on a combination of metoprolol , oral Cardizem CD, and patient is on Eliquis for anticoagulation, currently better controlled #3. Recent hospitalization for COVID-19 infection, COPD and CHF exacerbation, discharged home on 05/01/2021. Patient is status post completed COVID-19 vaccination. Patient completed a course of Remdesivir while in the hospital and IV steroids, oral anticoagulation, and COVID-19 vitamins #4. Advanced COPD on home oxygen and maintenance dose prednisone #5. Chronic diastolic congestive heart failure #6. Former smoker, currently in remission, carries [id number] smoking history #7. Paroxysmal A. fib, on Eliquis #8. Benign essential hypertension #9. History of dual-chamber pacemaker insertion for history of sinus pauses #10. Moderate pulmonary hypertension Plan: Continue weaning FiO2 Currently down to 3 L, breathing easier BiPAP support at bedtime and as needed Patient is maintaining negative fluid balance Daily electrolytes and renal profile, Daily weights, and accurate intake and output Continue oral anticoagulation in the form of Eliquis If contiues to improve, may consider discharge in am Continue to follow I performed a history & physical examination of the patient and discussed their management with my nurse practitioner, Kenna Ervin. I reviewed the nurse pra ctitioner's note and agree with the documented findings and plan of care. Lung sounds are positive for diffuse wheezes throughout the lung cotto. The findings and the impression was discussed with the patient. I attest to the documentation by the nurse practitioner. Time with Patient: Less than 30
[2021-05-08 16:57] LABS: Glucose,Whole Blood 309 mg/dL (75-99)
[2021-05-08] MEDS: metFORMIN 500 MG TAB PO SCH (17:06)
[2021-05-08] MEDS: ATORVASTATIN 20 MG TAB PO SCH (19:59)
[2021-05-08] MEDS: MELATONIN 5 MG TABLET PO SCH (19:59)
[2021-05-08 20:07] LABS: Glucose,Whole Blood 343 mg/dL (75-99)
[2021-05-09] MEDS: FAMOTIDINE 20 MG TAB PO SCH (06:29)
[2021-05-09] MEDS: PANTOPRAZOLE 40 MG TABLET PO SCH (06:29)
[2021-05-09] MEDS: MIDODRINE 5 MG TAB PO SCH (06:29)
[2021-05-09] MEDS: POTASSIUM CHLORIDE ER 10 MEQ TAB.ER.PRT PO SCH ×2 (06:30→17:18)
[2021-05-09] MEDS: INSULIN ASPART (NovoLOG) 100 UNIT/ML VIAL SQ SCH ×7 (06:39→21:19)
[2021-05-09 07:00] LABS: Glucose,Whole Blood 138 mg/dL (75-99)
[2021-05-09] MEDS: TIOTROPIUM 2.5 MCG INHALER INHALATION SCH (07:42)
[2021-05-09] MEDS: ALBUTEROL HFA INHALER INHALATION SCH ×4 (07:42→19:46)
[2021-05-09] MEDS: SYMBICORT 160-4.5 MCG INHALER INHALATION SCH ×2 (07:42→19:46)
--- NOTE | 2021-05-09 09:35 | P.DS ---
<Phoenix Gutiérrez - Last Filed: 05/09/21 09:35> Providers Expected date of discharge: 05/09/21 Patient Condition at Discharge: Stable Plan - Discharge Summary New Discharge Prescriptions: New Furosemide [Lasix] 40 mg PO BID@0900,1600 #60 tab Diltiazem Cd [Cardizem CD] 360 mg PO DAILY #30 capsule Continue Apixaban [Eliquis] 2.5 mg PO BID tablet Famotidine [Pepcid] 20 mg PO AC-BID Risedronate Sodium [Risedronate Sodium Dr] 35 mg PO MO Omeprazole 20 mg PO DAILY Isosorbide Mononitrate ER [Imdur] 15 mg PO DAILY Digoxin [Digitek] 62.5 mcg PO MOTUWETHFRSA Atorvastatin [Lipitor] 20 mg PO HS Albuterol Inhaler [Ventolin Hfa Inhaler] 1 - 2 puff INHALATION RT-QID PRN PRN Reason: Shortness Of Breath Calcium Carbonate [Calcium] 600 mg PO AC-LUNCH Melatonin 5 mg PO HS Dapagliflozin Propanediol [Farxiga] 5 mg PO DAILY metFORMIN HCL [Glucophage] 1,000 mg PO AC-SUPPER Ipratropium-Albuterol Nebulize [Duoneb 0.5 mg-3 mg/3 ml Soln] 3 ml INHALATION RT-QID Metoprolol Tartrate [Lopressor] 100 mg PO BID #180 tab Budesonide-Formot 160-4.5 Mcg [Symbicort 160-4.5 Mcg Inhaler] 2 puff INHALATION RT-BID #1 puff Zinc Sulfate [Orazinc] 220 mg PO DAILY cap Ascorbic Acid [Vitamin C] 500 mg PO BID tab Cholecalciferol [Vitamin D3 (25 Mcg = 1000 Iu)] 50 mcg PO DAILY tablet predniSONE See Taper PO DIRECTED Magnesium Oxide [Mag-Ox] 400 mg PO AC-LUNCH Cyanocobalamin (Vitamin B-12) [Vitamin B-12] 1,000 mcg PO AC-LUNCH Losartan [Cozaar] 25 mg PO DAILY predniSONE 10 mg PO DAILY #0 Potassium Chloride [Potassium Chloride ER] 10 meq PO AC-BID Discontinued Budesonide [Pulmicort] 1 mg INHALATION RT-BID PRN PRN Reason: Shortness Of Breath Furosemide [Lasix] 20 mg PO BID@0800,1200 #0 Discharge Medication List Apixaban [Eliquis] 2.5 mg PO BID tablet 08/11/17 [Rx] Famotidine [Pepcid] 20 mg PO AC-BID 10/23/17 [History] Albuterol Inhaler [Ventolin Hfa Inhaler] 1 - 2 puff INHALATION RT-QID PRN 06/16/20 [History] Atorvastatin [Lipitor] 20 mg PO HS 06/16/20 [History] Digoxin [Digitek] 62.5 mcg PO MOTUWETHFRSA 06/16/20 [History] Isosorbide Mononitrate ER [Imdur] 15 mg PO DAILY 06/16/20 [History] Omeprazole 20 mg PO DAILY 06/16/20 [History] Risedronate Sodium [Risedronate Sodium Dr] 35 mg PO MO 06/16/20 [History] Calcium Carbonate [Calcium] 600 mg PO AC-LUNCH 01/21/21 [History] Cyanocobalamin (Vitamin B-12) [Vitamin B-12] 1,000 mcg PO AC-LUNCH 01/21/21 [History] Dapagliflozin Propanediol [Farxiga] 5 mg PO DAILY 01/21/21 [History] Ipratropium-Albuterol Nebulize [Duoneb 0.5 mg-3 mg/3 ml Soln] 3 ml INHALATION RT-QID 01/21/21 [History] Losartan [Cozaar] 25 mg PO DAILY 01/21/21 [History] Magnesium Oxide [Mag-Ox] 400 mg PO AC-LUNCH 01/21/21 [History] Melatonin 5 mg PO HS 01/21/21 [History] metFORMIN HCL [Glucophage] 1,000 mg PO AC-SUPPER 01/21/21 [History] Budesonide-Formot 160-4.5 Mcg [Symbicort 160-4.5 Mcg Inhaler] 2 puff INHALATION RT-BID #1 puff 01/24/21 [Rx] Metoprolol Tartrate [Lopressor] 100 mg PO BID #180 tab 01/24/21 [Rx] Ascorbic Acid [Vitamin C] 500 mg PO BID tab 05/01/21 [Rx] Cholecalciferol [Vitamin D3 (25 Mcg = 1000 Iu)] 50 mcg PO DAILY tablet 05/01/21 [Rx] Zinc Sulfate [Orazinc] 220 mg PO DAILY cap 05/01/21 [Rx] predniSONE 10 mg PO DAILY #0 10/29/21 [Rx] Potassium Chloride [Potassium Chloride ER] 10 meq PO AC-BID 05/04/21 [History] predniSONE See Taper PO DIRECTED 05/04/21 [History] Diltiazem Cd [Cardizem CD] 360 mg PO DAILY #30 capsule 05/11/21 [Rx] Furosemide [Lasix] 40 mg PO BID@0900,1600 #60 tab 05/11/21 [Rx] Follow up Appointment(s)/Referral(s): Phoenix Gutiérrez MD [Primary Care Provider] - 05/12/21 1:15 pm [facility] Visiting Nurse, [NON-STAFF] - (Agency will contact you.) Patient Instructions/Handouts: Heart Failure (DC), A-fib (Atrial Fibrillation) (DC), COPD (Chronic Obstructive Pulmonary Disease) (DC) Discharge Disposition: HOME WITH HOME HEALTH SERVICES <Noelle Gilbert A - Last Filed: 05/11/21 14:18> Providers Date of admission: 05/04/21 15:19 Expected date of discharge: 05/11/21 Attending physician: Phoenix Gutiérrez Consults: 05/05/21 05:09 Consult Physician Urgent Consulting Provider: Nam Rajan Consult Reason/Comments: shortness of breath Do you want consulting provider notified?: Yes Primary care physician: Phoenix Gutiérrez Hospital Course: HISTORY OF PRESENT ILLNESS This is an 89-year old- female patient of [facility] with a previous medical history significant for hypertension and hypertensive cardiovascular disease, hyperlipidemia, Paroxysmal atrial fibrillation, 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 and steroid dependent has been doing fine with her O2 and Nebulized treatment at home till recently where she found to be more short of breath with increased coughing despite using her Updraft treatment, was recently hospitalized at [facility] after she was diagnosed with COVID-19 pneumonia she did receive Solu-Medrol 60 mg IV push every 6 hours along with Remdesivir and she was discharged home on Tuesday patient was doing fine on Tuesday however on Tuesday developed to have an increased shortness breath associated with increased swelling in both lower extremities patient was supposed to get Cardizem CD 360 mg for some reason was not called into her pharmacy, and she had stopped taking her Cardizem CD 240 she developed to have a significant atrial fibrillation with rapid ventricular response she became extreme short of breath , her daughter brought her to the emergency department at [facility] where she was found to have an acute diastolic heart failure she was started on Cardizem drip at 10 mg an hour, she was given Lasix 40 mg IV push every 8 hours, she was admitted to the hospital for acute diastolic heart failure patien had a chest x-ray that didn't show evidence of pulmonary vascular congestion and she was admitted to the hospital for evaluation and treatment by cardiology on Pulmonary consultation was obtained.t 05/05: Patient will be resumed on Cardizem oral 360 mg. Unfortunately, this was not prescribed to her pharmacy at the time of discharge. She is currently on Cardizem drip and cardiology on consult. Patient states that she had a rough night and was tired. She was placed on AirVo this morning at 5 AM with pulse ox of 95% with FiO2 of 34. Heart rate is currently running in the 120s she's been afebrile, respiratory rate 28, blood pressure 118/70. Repeat blood work reveals WBC 19.9. Sodium 131, potassium 3.7, chloride 89, CO2 36, BUN 27 creatinine 0.85. Blood sugar 145. D-dimer 0.25. Total bilirubin 1.4. LDH 839. C- reactive protein 7.7. Pro-calcitonin 0.05. Repeat chest x-ray ordered for tomorrow. Discuss CODE STATUS with the patient she wishes to be full code. 05/06: Patient has been seen by cardiology and has been resumed on all her home medications, Cardizem drip discontinued. Heart rate is now in the 60s and 70s. monitor worker atrial fibrillation. Blood pressure 125/81, pulse ox 96% on BiPAP 30% FiO2. She's been afebrile. Patient is also been seen by pulmonary medicine. Repeat chest x-ray this morning reveals limited rotated exam. COPD with patchy peripheral mid and lower lung infiltrates, left greater than right relatively similar. Capillary blood glucose running between 181 and 350. Patient states she had a good night and breathing is much better, wheezing is much better and cotinues with cough without sputum production. No change will be made in steroid and continue Solu-medrol 60 mg q6h. She had normal BM this morning. Consults with PT and OT added. She states she would rather go home verses rehab. 05/07: Patient has been afebrile, heart rate 78, blood pressure 117/62, pulse ox 95% on 3 L nasal cannula. Patient was on BiPAP during the night. Heart rate is improved today. She is sitting up eating breakfast. Capillary blood glucose running between 193 and was up to 306 yesterday afternoon. Solu-Medrol will be decreased to 40 mg every 8 hours, monitor patient overnight and probable discharge tomorrow. 05/08: Repeat chest x-ray reveals left lower lobe infiltrate. Correlate for atelectasis or pneumonia. Atypical pneumonia is within the differential. Pro- calcitonin was negative at 0.05. Patient remains afebrile, heart rate 72, blood pressure 146/80, pulse ox 90% on 30% FiO2 on BiPAP. Patient was on BiPAP during the night and transition to nasal cannula at 3 L in the morning. monitor worker is atrial fibrillation with controlled rate. Blood sugars remain high but are trending downward 205-364 overnight. Patient has been followed closely by pulmonary medicine. Patient states that her breathing has been improved since she arrived but she does not feel is close enough to her baseline to go home safely. She is continued on IV Lasix and IV Solu-Medrol. We will plan to monitor patient overnight and plan for discharge home tomorrow. 05/09: Patient sitting up in a chair appears to be generally weak, she continues to be somewhat short of breath with minimal activity, she is currently on 3 L dizzy cannula, we'll try to switch her to oral prednisone 40 mg once every day and switch her to oral Lasix 40 mg orally twice every day after she gets 1 IV Lasix today, give the patient hospital for another 24 hours, hopefully she will be able to be discharged home in the next 1 or 2 days. 05/10: Patient moved to a MedSurg unit yesterday, she was switched to oral prednisone 40 mg once every day as well as Lasix 40 bid gram orally twice every day she continued to have contraction alkalosis, she was taken off Midodrine yesterday and her blood pressure remains stable, continue to monitor the patient for another 24 hours, hopefully she will be discharged home tomorrow morning. 05/11: Patient denies any shortness of breath. She is complaining of constipation for which milk of magnesia and prune juice to be provided prior to discharge. Patient did not have portable O2 tank and staff to contact her [employer] to provide a portable tank in order to get home. Patient has been afebrile, heart rate 86, blood pressure 116/73, pulse ox 96% on 3 L nasal cannu la. WBC 13.9, hemoglobin 14, platelet count 172. Sodium 137, potassium 4.0, chloride 90, CO2 35, BUN 29 creatinine 1. Patient will be discharged home today in stable condition. ASSESSMENT AND PLAN 1. Acute on chronic hypoxemic respiratory failure due acute diastolic heart failure, A. fib with RVR and acute exacerbation of COPD. 2. Atrial fibrillation, paroxysmal. 3. Acute exacerbation of COPD with a prior history of COVID-19 pneumonia. 4. Recent hospitalization for Covid 19 completed course of Remdesivir. 5. Hypertension and hypertensive cardiovascular disease. 6. Hyperlipidemia. 7. Chronic diastolic heart failure. 8. 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 9. GERD. 10. CAD. 11. 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 DISCHARGE PLAN Home without home Greater than 35 minutes was utilized and coordinating patient's discharge. Impression and plan of care have been directed as dictated by the signing physician. Noelle Gilbert nurse practitioner acting as scribe for signing physician. Plan - Discharge Summary Discharge Rx Participant: Yes
[2021-05-09] MEDS ORDERED: predniSONE 20 MG TAB PO SCH (09:45)
--- NOTE | 2021-05-09 10:35 | P.PN ---
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 and steroid dependent has been doing fine with her O2 and Nebulized treatment at home till recently where she found to be more short of breath with increased coughing despite using her Updraft treatment, was recently hospitalized at [facility] after she was diagnosed with COVID-19 pneumonia she did receive Solu-Medrol 60 mg IV push every 6 hours along with Remdesivir and she was discharged home on Tuesday patient was doing fine on Tuesday however on Tuesday developed to have an increased shortness breath associated with increased swelling in both lower extremities patient was supposed to get Cardizem CD 360 mg for some reason was not called into her pharmacy, and she had stopped taking her Cardizem CD 240 she developed to have a significant atrial fibrillation with rapid ventricular response she became extreme short of breath , her daughter brought her to the emergency department at [facility] where she was found to have an acute diastolic heart failure she was started on Cardizem drip at 10 mg an hour, she was given Lasix 40 mg IV push every 8 hours, she was admitted to the hospital for acute diastolic heart failure patien had a chest x-ray that didn't show evidence of pulmonary vascular congestion and she was admitted to the hospital for evaluation and treatment by cardiology on Pulmonary consultation was obtained.t 05/05: Patient will be resumed on Cardizem oral 360 mg. Unfortunately, this was not prescribed to her pharmacy at the time of discharge. She is currently on Cardizem drip and cardiology on consult. Patient states that she had a rough night and was tired. She was placed on AirVo this morning at 5 AM with pulse ox of 95% with FiO2 of 34. Heart rate is currently running in the 120s she's been afebrile, respiratory rate 28, blood pressure 118/70. Repeat blood work reveals WBC 19.9. Sodium 131, potassium 3.7, chloride 89, CO2 36, BUN 27 creatinine 0.85. Blood sugar 145. D-dimer 0.25. Total bilirubin 1.4. LDH 839. C- reactive protein 7.7. Pro-calcitonin 0.05. Repeat chest x-ray ordered for tomorrow. Discuss CODE STATUS with the patient she wishes to be full code. 05/06: Patient has been seen by cardiology and has been resumed on all her home medications, Cardizem drip discontinued. Heart rate is now in the 60s and 70s. conveyor monitor atrial fibrillation. Blood pressure 125/81, pulse ox 96% on BiPAP 30% FiO2. She's been afebrile. Patient is also been seen by pulmonary medicine. Repeat chest x-ray this morning reveals limited rotated exam. COPD with patchy peripheral mid and lower lung infiltrates, left greater than right relatively similar. Capillary blood glucose running between 181 and 350. Patient states she had a good night and breathing is much better, wheezing is much better and cotinues with cough without sputum production. No change will be made in steroid and continue Solu-medrol 60 mg q6h. She had normal BM this morning. Consults with PT and OT added. She states she would rather go home verses rehab. 05/07: Patient has been afebrile, heart rate 78, blood pressure 117/62, pulse ox 95% on 3 L nasal cannula. Patient was on BiPAP during the night. Heart rate is improved today. She is sitting up eating breakfast. Capillary blood glucose running between 193 and was up to 306 yesterday afternoon. Solu-Medrol will be decreased to 40 mg every 8 hours, monitor patient overnight and probable discharge tomorrow. 05/08: Repeat chest x-ray reveals left lower lobe infiltrate. Correlate for atelectasis or pneumonia. Atypical pneumonia is within the differential. Pro- calcitonin was negative at 0.05. Patient remains afebrile, heart rate 72, blood pressure 146/80, pulse ox 90% on 30% FiO2 on BiPAP. Patient was on BiPAP during the night and transition to nasal cannula at 3 L in the morning. conveyor monitor is atrial fibrillation with controlled rate. Blood sugars remain high but are trending downward 205-364 overnight. Patient has been followed closely by pulmonary medicine. Patient states that her breathing has been improved since she arrived but she does not feel is close enough to her baseline to go home safely. She is continued on IV Lasix and IV Solu-Medrol. We will plan to monitor patient overnight and plan for discharge home tomorrow. 05/09: Patient sitting up in a chair appears to be generally weak, she continues to be somewhat short of breath with minimal activity, she is currently on 3 L dizzy cannula, we'll try to switch her to oral prednisone 40 mg once every day and switch her to oral Lasix 40 mg orally twice every day after she gets 1 IV Lasix today, give the patient hospital for another 24 hours, hopefully she will be able to be discharged home in the next 1 or 2 days. REVIEW OF SYSTEMS Constitutional: no fever no chills, no night sweats. No weight change. Reports weakness, Reports fatigue no lethargy. No daytime sleepiness. HEENT: No headache. No blurred vision or double vision, no loss of vision. No loss of Hearing, no ringing in the ears, no dizziness. No nasal drainage or congestion. No epistaxis. No sore throat, no loss of taste Lungs: Reports shortness of breath-improved, Reports cough, positive for sputum production. Reports wheezing. Cardiovascular: No chest pain, mild lower extremity edema. no palpitations. No paroxysmal nocturnal dyspnea. No orthopnea. No lightheadedness or dizziness. No syncopal episodes. Abdominal: No abdominal pain. No nausea, vomiting. No diarrhea. No constipation. No bloody or tarry stools.. No loss of appetite. Genitourinary: No dysuria, increased frequency, urgency. No urinary retention. Musculoskeletal: No myalgias. positive for muscle weakness, no gait dysfunction, no frequent falls. No back pain. No neck pain. Integumentary: No wounds, no lesions. No rash or pruritus. No unusual bru ising. Neurologic: No aphasia. No facial droop. No change in mentation. No head injury. No headache. No paralysis. No paresthesia. Psychiatric: No depression. No anxiety. Endocrine: Noted elevated blood sugars. PHYSICAL EXAMINATION Gen: This is an 89-year-old female, sitting on the edge of the bed in no acute distress currently on nasal cannula oxygen. HEENT: Head is atraumatic, normocephalic. Pupils equal, round. Sclerae is anicteric, mucous membranes of the mouth are somewhat dry. NECK: Supple. No JVD. No lymphadenopathy. No thyromegaly, decreased carotid upstrokes bilaterally. Chest: decrease breath sounds at the bases with few ronchi , minimal expiratory wheezes no chest wall tenderness no intercostal retractions. Heart: first heart sound is depressed second heart sound is normal there FLORY 2/6 located at the left sternal border, irregularly irregular due to atrial fibrillation. ABDOMEN: Soft, nontender, nondistended, positive bowel sounds, no hepatosplenomegaly. EXTREMITIES: +1 pedal edema. No calf tenderness. Dorsalis pedis +1 andrew aterally. NEUROLOGICAL: Patient is awake, alert and oriented x3. Cranial nerves 2 through 12 are grossly intact muscle christopher 4 out of 5 in upper and lower extremities bilaterally., ASSESSMENT AND PLAN 1. Acute hypoxemic respiratory failure due acute diastolic heart failure. Continue patient on Lasix 40 mg orally twice every day, she will be given 1 more dose of Lasix 40 mg IV times 1 in the morning, continue with the metoprolol 100 mg orally twice every day, continue Cardizem CD 360 minute gram orally once every day monitor the patient input and output and daily weight monitor the patient oxygen level. 2. Atrial fibrillation, paroxysmal. Patient currently in A. fib. Cardiology consult. Continue Digoxin 67.5 mcg orally daily, Cardizem CD 360 mg orally daily, Metoprolol 100 mg orally bid and Eliquis 2.5 ng orally twice every day. 3. Acute exacerbation of COPD with a prior history of COVID-19 pneumonia. Discontinue Samantha middle, start the patient on prednisone 40 mg orally twice every day, continue oxygen support at 3 L cannula, continue Delestrogen, follow- up with the patient. 4. Hypertension and hypertensive cardiovascular disease. Continue Losartn 25 mg orally daily, Metoprolol 100 mg orally bid, and Cardizem CD 360 minute gram orally once every day. 5. Hyperlipidemia. Continue Lipitor 20 mg orally daily. 6. Chronic diastolic heart failure. we will continue with Lasix 20 mg orally bid, Losartan 25 mg orally daily and Metoprolol 100 mg orally bid and Lasix 40 mg orally twice every day. 7. 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 we will continue with above treatment. 8. GERD. we will continue with Protonix 40 mg orally daily and Pepcid 20 mg po bid 9. CAD. Continue with Metoprolol 100 mg orally bid, Lipitor 20 mg orally daily and Imdur 15 mg orally daily. 10. 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 we will continue with Metformin 1000 mg orally with supper and Farxiga 5 mg orally daily, continue NovoLog 3 units with meals and sliding scale insul in. 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 we will hold off Residronate. 12. DVT prophylaxis. Continue eliquis. 2.5 mg orally bid. 13. GI Prophylaxis. we will continue with protonix 40 mg orally daily and pepcid 20 mg orally bid 14. Home in 1-2 days. Objective - Vital Signs Vital signs: Vital Signs Temp 98.5 F 05/09/21 04:00 Pulse 68 05/09/21 04:00 Resp 22 05/09/21 04:00 BP 109/58 05/09/21 04:00 Pulse Ox 95 05/09/21 07:49 Intake & Output 05/08/21 05/09/21 05/09/21 18:59 06:59 18:59 Intake Total 1130 120 118 Output Total 200 550 Balance 930 -430 118 Weight 70.5 kg Intake: Oral 1130 120 118 Output: Urine 200 550 Other: Voiding Method Bedside Commode Diaper # Voids 2 1 - Labs CBC & Chem 7: 05/08/21 08:51 05/08/21 08:51 Labs: Abnormal Lab Results - Last 24 Hours (Table) 05/08/21 05/08/21 05/08/21 Range/Units 12:12 16:55 19:47 POC Glucose (mg/dL) 206 H 309 H 343 H (75-99) mg/dL 05/09/21 Range/Units 06:37 POC Glucose (mg/dL) 138 H (75-99) mg/dL
[2021-05-09 10:46] LABS: Basophils % (A) 0 %; Eosinophils % (A) 0 %; HCT 45.4 % (34.0-46.0); HGB 14.2 gm/dL (11.4-16.0); Lymphocytes # (A) 0.2 k/uL (1.0-4.8); Lymphocytes % (A) 1 %; MCH 29.7 pg (25.0-35.0); MCHC 31.2 g/dL (31.0-37.0); MCV 95.2 fL (80.0-100.0); Mean Platelet Volume 7.4; Monocytes # (A) 0.7 k/uL (0-1.0); Monocytes % (A) 4 %; Neutrophils # (A) 15.5 k/uL (1.3-7.7); Neutrophils % (A) 95 %; Platelet Count 184 k/uL (150-450); RBC 4.77 m/uL (3.80-5.40); WBC 16.3 k/uL (3.8-10.6)
[2021-05-09 10:57] LABS: Calcium 8.2 mg/dL (8.4-10.2); Total Bilirubin 0.8 mg/dL (0.2-1.3); Total Protein 5.2 g/dL (6.3-8.2)
[2021-05-09] MEDS: ASCORBIC ACID 500 MG TAB PO SCH ×2 (11:47→21:20)
[2021-05-09] MEDS: METOPROLOL TARTRATE 50 MG TAB PO SCH ×2 (11:47→21:20)
[2021-05-09] MEDS: ZINC SULFATE 220 MG CAP PO SCH (11:47)
[2021-05-09] MEDS: DILTIAZEM CD 180 MG CAP.ER.24H PO SCH (11:47)
[2021-05-09] MEDS: ISOSORBIDE MONONITRATE ER 15 MG TAB PO SCH (11:47)
[2021-05-09] MEDS: CHOLECALCIFEROL 25 MCG (1000 IU) TABLET PO SCH (11:47)
[2021-05-09] MEDS: predniSONE 20 MG TAB PO SCH (11:47)
[2021-05-09] MEDS: LOSARTAN 25 MG TAB PO SCH (11:47)
[2021-05-09] MEDS: FUROSEMIDE 10 MG/ML 4 ML VIAL IV SCH (11:48)
[2021-05-09] MEDS: APIXABAN 2.5 MG TABLET PO SCH ×2 (11:48→21:20)
[2021-05-09 11:49] LABS: Glucose,Whole Blood 343 mg/dL (75-99)
[2021-05-09] MEDS: Dapagliflozin Propanediol [Farxiga] PO SCH (12:57)
[2021-05-09] MEDS: CALCIUM CARBONATE 500 MG CHEWABLE PO SCH (13:29)
[2021-05-09] MEDS: MAGNESIUM OXIDE 400 MG TAB PO SCH (13:30)
[2021-05-09] MEDS: CYANOCOBALAMIN 500 MCG TAB PO SCH (13:30)
--- NOTE | 2021-05-09 14:40 | P.PN ---
Subjective Progress Note Date: 05/09/21 Principal diagnosis: Recent COVID-19 infection, A. fib with RVR, acute CHF exacerbation 89-year-old white female patient who follows with Dr. 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 Patient was treated with steroids, bronchodilators, diuretics, and she has completed a course of Remdesivir. She was feeling better, breathing much easier, she was off BiPAP support, she was discharged home on 05/01/2021. On 05/04/2021 patient came to the emergency department per EMS for evaluation of worsening shortness of breath that she started experiencing at nighttime. Patient felt that her heart was racing, she was found to be in A. fib with RVR in the emergency department. He was doing her breathing treatments but it was not helping. She had a low-grade fever in [facility] emergency department. Lab work on admission showed leukocytosis with a white count of 17.8, however patient was completing prednisone taper at home, CMP revealed mild dehydration, otherwise it was unremarkable. Troponin was within normal limits, proBNP was elevated at 9460. Chest x-ray showed no acute cardiopulmonary process. She was very dyspneic, and bronchospastic, in the emergency department she was started on IV Lasix 40 mg every 8 hours, she was started on a Cardizem infusion for rate control, she takes Eliquis for chronic anticoagulation at home, she was started on nebulized bronchodilators, and IV steroids. Follow-up chest x-ray today showing mild pulmonary congestion, but no pleural fluid to suggest heart failure. She is breathing easier, she was placed on Airvo at 50 L and FiO2 34%, her pulse ox is 95-96%. Still mildly wheezy and dyspneic, but no acute distress. Overall is feeling better. On 05/06/2021 patient seen in follow-up on selective care unit, she is breathing much easier today, she is on 3 L of oxygen pulse ox is 97%. She did wear BiPAP support last night, FiO2 of 30%, maintained O2 saturations at 96-97%, she's been afebrile, she remains on diuretics with IV Lasix 40 mg every 8 hours, she is maintaining negative fluid balance. She remains in atrial fibrillation with a controlled rate. She is on Eliquis 2.5 mg twice daily, metoprolol 100 mg twice daily, but etiology is following. Patient is also on Cardizem CD 360 mg daily. She remains on IV Solu-Medrol 60 mg every 8 hours 4 acute exacerbation of COPD. Today's labs have been reviewed showing white blood cell count 22, hemoglobin is 14, sodium is 132, potassium is 4.4, chloride is 88, BUN is 30 a creatinine is 1.06. Today's chest x-ray shows patchy peripheral mid and lower lung infilt rates, left greater than right relatively similar to the previous chest x-ray On patient seen in follow-up on selective care unit, she sitting up in the chair, in no acute distress, she remains on IV Lasix 40 mg every 8 hours, she's breathing much more comfortably since admission, she remains on steroids, she is currently on 3 L of oxygen, her pulse ox is 90-95%, she said no fever or chills, no complaint of chest pain. -600 mL Fluid balance over the last 24 hours, she did wear BiPAP support in last night, tolerates it very well, she states she feels better with BiPAP. Less short of breath and less coughing. No new labs chest x-rays today. Pro-calcitonin level was negative at 0.05. On 05/08/2021 patient seen in follow-up on selective care unit, she is awake and alert, in no acute distress, she sitting up in the recliner, breathing much more comfortably, currently on 3 L of oxygen her pulse ox is 92-97%, she did wear BiPAP support last night, tolerates it well, no complaints of worsening dyspnea no complaints of chest discomfort. She has been diuresed, today's chest x-ray shows left lower lobe infiltrate, there is blunting of the left costophrenic angle. She is in -260 mL net fluid balance, however this is nonicteric intake and output no fluid balance as some of the voids have been recorded as occurrences not amounts. Today's labs have been reviewed, blood cell count is 20.1, slightly improved, hemoglobin is 12.3, sodium is 1:30, potassium 3.8, chloride is 87, CO2 34, BUN is 46, creatinine is 1.06. Lower extremity edema has improved. Patient states she has had some lower blood pressures today, and her dose of Lasix was adjusted and cut back to 40 mg every 12 hours, she also continues on IV Solu-Medrol 40 mg every 12 hours and nebulized bronchodilators, she is on Eliquis for history of atrial fibrillation, her heart rate is currently poorly controlled. Cardiology is following. On today's evaluation on 05/09/2021 patient seen in follow-up on selective care unit, she is on 3 L of oxygen and her pulse ox is 95%, she did wear BiPAP last night with pressures of 12 and 6 and FiO2 of 30%, tolerates BiPAP very well, she states she feels rested after a night on BiPAP. Lung sounds reveal diminished breath sounds with coarse crackles at the left base, no wheezing, no fever or chills, no complaints of chest discomfort, her heart rate is currently controlled. On Eliquis for anticoagulation, she is also on prednisone for recent history of COVID-19 related pneumonia, and acute exacerbation of COPD. On metoprolol 100 mg twice daily, she is on oral Cardizem CD 360 mg daily, and digoxin, her heart rate is better controlled, no other acute events overnight, she has been transitioned to oral Lasix 40 mg twice daily. Lower extremity edema is improving. Objective - Vital Signs Vital signs: Vital Signs Temp 98.5 F 05/09/21 04:00 Pulse 68 05/09/21 04:00 Resp 22 05/09/21 04:00 BP 109/58 05/09/21 04:00 Pulse Ox 95 05/09/21 07:49 Intake & Output 05/08/21 05/09/21 05/09/21 18:59 06:59 18:59 Intake Total 1130 120 118 Output Total 200 550 150 Balance 930 -430 -32 Weight 70.5 kg Intake: Oral 1130 120 118 Output: Urine 200 550 150 Other: Voiding Method Bedside Commode Diaper # Voids 2 1 - Exam GENERAL EXAM: Alert, 89-year-old white female patient on 3 L of oxygen pulse ox of 96% comfortable in no apparent distress. HEAD: Normocephalic/atraumatic. EYES: Normal reaction of pupils, equal size. Conjunctiva pink, sclera white. NOSE: Clear with pink turbinates. THROAT: No erythema or exudates. NECK: No masses, no JVD, no thyroid enlargement, no adenopathy. CHEST: No chest wall deformity. Symmetrical expansion. LUNGS: Equal air entry with diminished breath sounds mild crackles and wheezes CVS: Irregular rate and rhythm, normal S1 and S2, no gallops, no murmurs, no rubs ABDOMEN: Soft, nontender. No hepatosplenomegaly, normal bowel sounds, no guarding or rigidity. EXTREMITIES: No clubbing, 1+ edema, no cyanosis, 2+ pulses and upper and lower extremities. MUSCULOSKELETAL: Muscle strength and tone normal. SPINE: No scoliosis or deformity SKIN: No rashes CENTRAL NERVOUS SYSTEM: Alert and oriented -3. No focal deficits, tone is normal in all 4 extremities. PSYCHIATRIC: Alert and oriented -3. Appropriate affect. Intact judgment and insight. - Labs CBC & Chem 7: 05/09/21 09:53 05/09/21 09:53 Labs: Abnormal Lab Results - Last 24 Hours (Table) 05/08/21 05/08/21 05/09/21 Range/Units 16:55 19:47 06:37 WBC (3.8-10.6) k/uL Neutrophils # (1.3-7.7) k/uL Lymphocytes # (1.0-4.8) k/uL Sodium (137-145) mmol/L Chloride (98-107) mmol/L Carbon Dioxide (22-30) mmol/L BUN (7-17) mg/dL Glucose (74-99) mg/dL POC Glucose (mg/dL) 309 H 343 H 138 H (75-99) mg/dL Calcium (8.4-10.2) mg/dL Total Protein (6.3-8.2) g/dL Albumin (3.5-5.0) g/dL 05/09/21 05/09/21 05/09/21 Range/Units 09:53 09:53 11:48 WBC 16.3 H (3.8-10.6) k/uL Neutrophils # 15.5 H (1.3-7.7) k/uL Lymphocytes # 0.2 L (1.0-4.8) k/uL Sodium 130 L (137-145) mmol/L Chloride 86 L (98-107) mmol/L Carbon Dioxide 33 H (22-30) mmol/L BUN 44 H (7-17) mg/dL Glucose 325 H (74-99) mg/dL POC Glucose (mg/dL) 343 H (75-99) mg/dL Calcium 8.2 L (8.4-10.2) mg/dL Total Protein 5.2 L (6.3-8.2) g/dL Albumin 3.0 L (3.5-5.0) g/dL Assessment and Plan Plan: Assessment: #1. Acute on chronic dyspnea, multifactorial, related to acute exacerbation of COPD, and CHF with diastolic dysfunction and A. fib with RVR #2. A. fib with RVR, currently better controlled on a combination of metoprolol, oral Cardizem CD, and patient is on Eliquis for anticoagulation, currently better controlled #3. Recent hospitalization for COVID-19 infection, COPD and CHF exacerbation, discharged home on 05/01/2021. Patient is status post completed COVID-19 vaccination. Patient completed a course of Remdesivir while in the hospital and IV steroids, oral anticoagulation, and COVID-19 vitamins #4. Advanced COPD on home oxygen and maintenance dose prednisone #5. Chronic diastolic congestive heart failure #6. Former smoker, currently in remission, carries [id number] smoking history #7. Paroxysmal A. fib, on Eliquis #8. Benign essential hypertension #9. History of dual-chamber pacemaker insertion for history of sinus pauses #10. Moderate pulmonary hypertension Plan: Breathing has remained stable, without worsening dyspnea or hypoxia Continue BiPAP support at bedtime and as needed Continue weaning FiO2, currently down to 3 L Continue oral diuretics, oral prednisone, and anticoagulation Rate control medications per cardiology Increase activity as tolerated If remains stable and continues to improve may consider discharge home in a.m. I performed a history & physical examination of the patient and discussed their management with my nurse practitioner, Kenna Ervin. I reviewed the nurse practitioner's note and agree with the documented findings and plan of care. Lung sounds are positive for diffuse wheezes throughout the lung cotto. The findings and the impression was discussed with the patient. I attest to the documentation by the nurse practitioner. Time with Patient: Less than 30
[2021-05-09 16:26] LABS: Glucose,Whole Blood 281 mg/dL (75-99)
[2021-05-09] MEDS: metFORMIN 500 MG TAB PO SCH (17:17)
[2021-05-09] MEDS: FUROSEMIDE 40 MG TAB PO SCH (17:18)
[2021-05-09] MEDS: DIGOXIN 125 MCG TAB PO SCH (17:18)
[2021-05-09 20:32] LABS: Glucose,Whole Blood 148 mg/dL (75-99)
[2021-05-09] MEDS: ATORVASTATIN 20 MG TAB PO SCH (21:20)
[2021-05-09] MEDS: MELATONIN 5 MG TABLET PO SCH (21:20)
[2021-05-10 07:16] LABS: Glucose,Whole Blood 95 mg/dL (75-99)
[2021-05-10] MEDS: ASCORBIC ACID 500 MG TAB PO SCH ×2 (07:29→20:44)
[2021-05-10] MEDS: APIXABAN 2.5 MG TABLET PO SCH ×2 (07:29→20:44)
[2021-05-10] MEDS: POTASSIUM CHLORIDE ER 10 MEQ TAB.ER.PRT PO SCH ×2 (07:29→17:08)
[2021-05-10] MEDS: METOPROLOL TARTRATE 50 MG TAB PO SCH ×2 (07:30→20:45)
[2021-05-10] MEDS: CHOLECALCIFEROL 25 MCG (1000 IU) TABLET PO SCH (07:30)
[2021-05-10] MEDS: PANTOPRAZOLE 40 MG TABLET PO SCH (07:30)
[2021-05-10] MEDS: ZINC SULFATE 220 MG CAP PO SCH (07:30)
[2021-05-10] MEDS: LOSARTAN 25 MG TAB PO SCH (07:30)
[2021-05-10] MEDS: ISOSORBIDE MONONITRATE ER 15 MG TAB PO SCH (07:31)
[2021-05-10] MEDS: FAMOTIDINE 20 MG TAB PO SCH (07:31)
[2021-05-10] MEDS: FUROSEMIDE 40 MG TAB PO SCH ×2 (07:31→17:08)
[2021-05-10] MEDS: predniSONE 20 MG TAB PO SCH (07:31)
[2021-05-10] MEDS: INSULIN ASPART (NovoLOG) 100 UNIT/ML VIAL SQ SCH ×7 (07:35→20:44)
[2021-05-10] MEDS: Dapagliflozin Propanediol [Farxiga] PO SCH (07:40)
[2021-05-10] MEDS: DILTIAZEM CD 180 MG CAP.ER.24H PO SCH (08:01)
[2021-05-10] MEDS: ALBUTEROL HFA INHALER INHALATION SCH ×4 (08:06→20:00)
[2021-05-10] MEDS: SYMBICORT 160-4.5 MCG INHALER INHALATION SCH ×2 (08:06→20:00)
[2021-05-10] MEDS: TIOTROPIUM 2.5 MCG INHALER INHALATION SCH (08:06)
--- NOTE | 2021-05-10 09:37 | P.PN ---
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 and steroid dependent has been doing fine with her O2 and Nebulized treatment at home till recently where she found to be more short of breath with increased coughing despite using her Updraft treatment, was recently hospitalized at [facility] after she was diagnosed with COVID-19 pneumonia she did receive Solu-Medrol 60 mg IV push every 6 hours along with Remdesivir and she was discharged home on Tuesday patient was doing fine on Tuesday however on Tuesday developed to have an increased shortness breath associated with increased swelling in both lower extremities patient was supposed to get Cardizem CD 360 mg for some reason was not called into her pharmacy, and she had stopped taking her Cardizem CD 240 she developed to have a significant atrial fibrillation with rapid ventricular response she became extreme short of breath , her daughter brought her to the emergency department at [facility] where she was found to have an acute diastolic heart failure she was started on Cardizem drip at 10 mg an hour, she was given Lasix 40 mg IV push every 8 hours, she was admitted to the hospital for acute diastolic heart failure patien had a chest x-ray that didn't show evidence of pulmonary vascular congestion and she was admitted to the hospital for evaluation and treatment by cardiology on Pulmonary consultation was obtained.t 05/05: Patient will be resumed on Cardizem oral 360 mg. Unfortunately, this was not prescribed to her pharmacy at the time of discharge. She is currently on Cardizem drip and cardiology on consult. Patient states that she had a rough night and was tired. She was placed on AirVo this morning at 5 AM with pulse ox of 95% with FiO2 of 34. Heart rate is currently running in the 120s she's been afebrile, respiratory rate 28, blood pressure 118/70. Repeat blood work reveals WBC 19.9. Sodium 131, potassium 3.7, chloride 89, CO2 36, BUN 27 creatinine 0.85. Blood sugar 145. D-dimer 0.25. Total bilirubin 1.4. LDH 839. C- reactive protein 7.7. Pro-calcitonin 0.05. Repeat chest x-ray ordered for tomorrow. Discuss CODE STATUS with the patient she wishes to be full code. 05/06: Patient has been seen by cardiology and has been resumed on all her home medications, Cardizem drip discontinued. Heart rate is now in the 60s and 70s. 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 Blood pressure 125/81, pulse ox 96% on BiPAP 30% FiO2. She's been afebrile. Patient is also been seen by pulmonary medicine. Repeat chest x-ray this morning reveals limited rotated exam. COPD with patchy peripheral mid and lower lung infiltrates, left greater than right relatively similar. Capillary blood glucose running between 181 and 350. Patient states she had a good night and breathing is much better, wheezing is much better and cotinues with cough without sputum production. No change will be made in steroid and continue Solu-medrol 60 mg q6h. She had normal BM this morning. Consults with PT and OT added. She states she would rather go home verses rehab. 05/07: Patient has been afebrile, heart rate 78, blood pressure 117/62, pulse ox 95% on 3 L nasal cannula. Patient was on BiPAP during the night. Heart rate is improved today. She is sitting up eating breakfast. Capillary blood glucose running between 193 and was up to 306 yesterday afternoon. Solu-Medrol will be decreased to 40 mg every 8 hours, monitor patient overnight and probable discharge tomorrow. 05/08: Repeat chest x-ray reveals left lower lobe infiltrate. Correlate for atelectasis or pneumonia. Atypical pneumonia is within the differential. Pro- calcitonin was negative at 0.05. Patient remains afebrile, heart rate 72, blood pressure 146/80, pulse ox 90% on 30% FiO2 on BiPAP. Patient was on BiPAP during the night and transition to nasal cannula at 3 L in the morning. 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 Blood sugars remain high but are trending downward 205-364 overnight. Patient has been followed closely by pulmonary medicine. Patient states that her breathing has been improved since she arrived but she does not feel is close enough to her baseline to go home safely. She is continued on IV Lasix and IV Solu-Medrol. We will plan to monitor patient overnight and plan for discharge home tomorrow. 05/09: Patient sitting up in a chair appears to be generally weak, she continues to be somewhat short of breath with minimal activity, she is currently on 3 L dizzy cannula, we'll try to switch her to oral prednisone 40 mg once every day and switch her to oral Lasix 40 mg orally twice every day after she gets 1 IV Lasix today, give the patient hospital for another 24 hours, hopefully she will be able to be discharged home in the next 1 or 2 days. 05/10: Patient moved to a [facility] unit yesterday, she was switched to oral prednisone 40 mg once every day as well as Lasix 40 bid gram orally twice every day she continued to have contraction alkalosis, she was taken off Midodrine yesterday and her blood pressure remains stable, continue to monitor the patient for another 24 hours, hopefully she will be discharged home tomorrow morning. REVIEW OF SYSTEMS Constitutional: no fever no chills, no night sweats. No weight change. Reports weakness, Reports fatigue no lethargy. No daytime sleepiness. HEENT: No headache. No blurred vision or double vision, no loss of vision. positive for loss of Hearing, no ringing in the ears, no dizziness. No nasal drainage or congestion. No epistaxis. No sore throat, no loss of taste Lungs: Reports shortness of breath-improved, Reports cough, positive for sputum production. Reports wheezing. Cardiovascular: No chest pain, mild lower extremity edema. positive for palpitations. No paroxysmal nocturnal dyspnea. No orthopnea. No lightheadedness or dizziness. No syncopal episodes. Abdominal: No abdominal pain. No nausea, vomiting. No diarrhea. No constipation. No bloody or tarry stools.. No loss of appetite. Genitourinary: No dysuria, increased frequency, urgency. No urinary retention. Musculoskeletal: No myalgias. positive for muscle weakness, no gait dysfunction, no frequent falls. No back pain. No neck pain. Integumentary: No wounds, no lesions. No rash or pruritus. No unusual bruising. Neurologic: No aphasia. No facial droop. No change in mentation. No head injury. No headache. No paralysis. No paresthesia. Psychiatric: No depression. No anxiety. Endocrine: Noted elevated blood sugars. PHYSICAL EXAMINATION Gen: This is an 89-year-old female, sitting in her chair in no acute distress currently on 3 L nasal cannula oxygen. HEENT: Head is atraumatic, normocephalic. Pupils equal, round. Sclerae is anicteric, mucous membranes of the mouth are somewhat dry. NECK: Supple. No JVD. No lymphadenopathy. No thyromegaly, decreased carotid upstrokes bilaterally. Chest: decrease breath sounds at the bases with few ronchi , minimal expiratory wheezes no chest wall tenderness no intercostal retractions. Heart: first heart sound is depressed second heart sound is normal there FLORY 2/6 located at the left sternal border, irregularly irregular due to atrial fibrillation. ABDOMEN: Soft, nontender, nondistended, positive bowel sounds, no hepatosplenomegaly. EXTREMITIES: +1 pedal edema. No calf tenderness. Dorsalis pedis +1 bilaterally. NEUROLOGICAL: Patient is awake, alert and oriented x3. Cranial nerves 2 through 12 are grossly intact muscle christopher 4 out of 5 in upper and lower extremities bilaterally., ASSESSMENT AND PLAN 1. Acute hypoxemic respiratory failure due acute diastolic heart failure. Continue patient on Lasix 40 mg orally twice every day, she will be given 1 more dose of Lasix 40 mg IV times 1 in the morning, continue with the metoprolol 100 mg orally twice every day, continue Cardizem CD 360 minute gram orally once every day monitor the patient input and output and daily weight monitor the patient oxygen level. 2. Atrial fibrillation, paroxysmal. Patient currently in A. fib. Cardiology consult. Continue Digoxin 67.5 mcg orally daily, Cardizem CD 360 mg orally daily, Metoprolol 100 mg orally bid and Eliquis 2.5 ng orally twice every day. 3. Acute exacerbation of COPD with a prior history of COVID-19 pneumonia. Discontinue Samantha middle, start the patient on prednisone 40 mg orally twice every day, continue oxygen support at 3 L cannula, continue Delestrogen, follow- up with the patient. 4. Hypertension and hypertensive cardiovascular disease. Continue Losartn 25 mg orally daily, Metoprolol 100 mg orally bid, and Cardizem CD 360 minute gram orally once every day. 5. Hyperlipidemia. Continue Lipitor 20 mg orally daily. 6. Chronic diastolic heart failure. we will continue with Lasix 20 mg orally bid, Losartan 25 mg orally daily and Metoprolol 100 mg orally bid and Lasix 40 mg orally twice every day. 7. 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 we will continue with above treatment. 8. GERD. we will continue with Protonix 40 mg orally daily and Pepcid 20 mg po bid 9. CAD. Continue with Metoprolol 100 mg orally bid, Lipitor 20 mg orally daily and Imdur 15 mg orally daily. 10. 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 we will continue with Metformin 1000 mg orally with supper and Farxiga 5 mg orally daily, continue NovoLog 3 units with meals and sliding scale insulin. 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 we will hold off Residronate. 12. DVT prophylaxis. Continue eliquis. 2.5 mg orally bid. 13. GI Prophylaxis. we will continue with protonix 40 mg orally daily and pepcid 20 mg orally bid 14. Home in AM Objective - Vital Signs Vital signs: Vital Signs Temp 97.5 F L 05/10/21 05:46 Pulse 89 05/10/21 05:46 Resp 17 05/10/21 07:30 BP 123/71 05/10/21 05:46 Pulse Ox 95 05/10/21 05:46 Intake & Output 05/09/21 05/10/21 05/10/21 19:59 06:59 18:59 Intake Total Output Total Balance Weight Intake: Oral Output: Urine Other: Voiding Method Bedside Commode Diaper # Voids - Labs CBC & Chem 7: 05/09/21 09:53 05/09/21 09:53 Labs: Abnormal Lab Results - Last 24 Hours (Table) 05/09/21 05/09/21 05/09/21 Range/Units 09:53 09:53 11:48 WBC 16.3 H (3.8-10.6) k/uL Neutrophils # 15.5 H (1.3-7.7) k/uL Lymphocytes # 0.2 L (1.0-4.8) k/uL Sodium 130 L (137-145) mmol/L Chloride 86 L (98-107) mmol/L Carbon Dioxide 33 H (22-30) mmol/L BUN 44 H (7-17) mg/dL Glucose 325 H (74-99) mg/dL POC Glucose (mg/dL) 343 H (75-99) mg/dL Calcium 8.2 L (8.4-10.2) mg/dL Total Protein 5.2 L (6.3-8.2) g/dL Albumin 3.0 L (3.5-5.0) g/dL 05/09/21 05/09/21 Range/Units 16:24 20:31 WBC (3.8-10.6) k/uL Neutrophils # (1.3-7.7) k/uL Lymphocytes # (1.0-4.8) k/uL Sodium (137-145) mmol/L Chloride (98-107) mmol/L Carbon Dioxide (22-30) mmol/L BUN (7-17) mg/dL Glucose (74-99) mg/dL POC Glucose (mg/dL) 281 H 148 H (75-99) mg/dL Calcium (8.4-10.2) mg/dL Total Protein (6.3-8.2) g/dL Albumin (3.5-5.0) g/dL
[2021-05-10 11:59] LABS: Glucose,Whole Blood 135 mg/dL (75-99)
[2021-05-10] MEDS: MAGNESIUM OXIDE 400 MG TAB PO SCH (12:17)
[2021-05-10] MEDS: CYANOCOBALAMIN 500 MCG TAB PO SCH (12:17)
[2021-05-10] MEDS: CALCIUM CARBONATE 500 MG CHEWABLE PO SCH (12:17)
[2021-05-10 16:54] LABS: Glucose,Whole Blood 192 mg/dL (75-99)
[2021-05-10] MEDS: metFORMIN 500 MG TAB PO SCH (17:08)
[2021-05-10] MEDS: MELATONIN 5 MG TABLET PO SCH (20:45)
[2021-05-10] MEDS: ATORVASTATIN 20 MG TAB PO SCH (20:45)
[2021-05-10 20:51] LABS: Glucose,Whole Blood 212 mg/dL (75-99)
[2021-05-11 05:16] VITALS: RESP 19; TEMP 97.7
--- NOTE | 2021-05-11 07:07 | XR ---
EXAMINATION TYPE: XR chest 1V DATE OF EXAM: 05/11/2021 COMPARISON: 05/08/2021 HISTORY: Shortness of breath TECHNIQUE: Single frontal view of the chest is obtained. FINDINGS: Hyperinflation noted there is cardiomegaly with left-sided consolidation. Underlying chron ic obstructive pulmonary disease suspected with interstitial lung disease. Atherosclerotic change aor ta. Cardiac device noted. IMPRESSION: 1. COPD with chronic interstitial lung disease and left-sided infiltrate.
[2021-05-11] MEDS: methylPREDNISolone SOD SUCCI 40 MG/ML 1 ML VIAL IV SCH (07:08)
[2021-05-11 07:30] LABS: Glucose,Whole Blood 76 mg/dL (75-99)
[2021-05-11] MEDS: ALBUTEROL HFA INHALER INHALATION SCH ×2 (07:57→11:24)
[2021-05-11] MEDS: SYMBICORT 160-4.5 MCG INHALER INHALATION SCH (07:57)
[2021-05-11] MEDS: TIOTROPIUM 2.5 MCG INHALER INHALATION SCH (07:58)
[2021-05-11] MEDS: INSULIN ASPART (NovoLOG) 100 UNIT/ML VIAL SQ SCH ×2 (08:05→08:09)
[2021-05-11] MEDS: Dapagliflozin Propanediol [Farxiga] PO SCH (08:10)
[2021-05-11] MEDS ORDERED: MAGNESIUM HYDROXIDE 2,400 MG/10 ML CUP PO PRN (08:15)
[2021-05-11] MEDS: CHOLECALCIFEROL 25 MCG (1000 IU) TABLET PO SCH (08:34)
[2021-05-11] MEDS: predniSONE 20 MG TAB PO SCH (08:35)
[2021-05-11] MEDS: FUROSEMIDE 40 MG TAB PO SCH (08:35)
[2021-05-11] MEDS: PANTOPRAZOLE 40 MG TABLET PO SCH (08:35)
[2021-05-11] MEDS: ZINC SULFATE 220 MG CAP PO SCH (08:35)
[2021-05-11] MEDS: APIXABAN 2.5 MG TABLET PO SCH (08:35)
[2021-05-11] MEDS: POTASSIUM CHLORIDE ER 10 MEQ TAB.ER.PRT PO SCH (08:35)
[2021-05-11] MEDS: ASCORBIC ACID 500 MG TAB PO SCH (08:35)
[2021-05-11] MEDS: LOSARTAN 25 MG TAB PO SCH (08:36)
[2021-05-11] MEDS: ISOSORBIDE MONONITRATE ER 15 MG TAB PO SCH (08:36)
[2021-05-11] MEDS: DILTIAZEM CD 180 MG CAP.ER.24H PO SCH (08:36)
[2021-05-11] MEDS: FAMOTIDINE 20 MG TAB PO SCH (08:36)
[2021-05-11] MEDS: METOPROLOL TARTRATE 50 MG TAB PO SCH (08:39)
[2021-05-11 08:42] VITALS: BP 118/81; PULSE 88
[2021-05-11 10:58] LABS: Basophils # (A) 0.02 X 10*3/uL (0.00-0.10); Basophils % (A) 0.1 %; Eosinophils # (A) 0.04 X 10*3/uL (0.04-0.35); Eosinophils % (A) 0.3 %; HCT 45.2 % (37.2-46.3); Lymphocytes # (A) 0.74 X 10*3/uL (0.90-5.00); Lymphocytes % (A) 5.3 %; MCH 28.8 pg (27.0-32.0); Mean Platelet Volume 9.8 fL (9.5-12.2); Monocytes # (A) 0.54 X 10*3/uL (0.20-1.00); Monocytes % (A) 3.9 %; Neutrophils # (A) 12.55 X 10*3/uL (1.80-7.70); Neutrophils % (A) 89.7 %; Platelet Count 172 X 10*3/uL (140-440); RBC 4.86 X 10*6/uL (4.10-5.20); WBC 13.99 X 10*3/uL (4.50-10.00)
[2021-05-11 11:15] VITALS: BMI 26.5
[2021-05-11 11:17] LABS: African American GFR (CKD) 61.4 (60.0-200.0); Albumin 3.2 g/dL (3.8-4.9); Albumin/Globulin Ratio 1.67 (1.60-3.17); Anion Gap 12.2 mmol/L (4.00-12.00); BUN/Creat Ratio 31.3 Ratio (12.00-20.00); Blood Urea Nitrogen 29.8 mg/dL (9.0-27.0); Calcium 8.4 mg/dL (8.7-10.3); Globulin 1.9 g/dL (1.6-3.3); Magnesium 2.3 mg/dL (1.5-2.4); Total Protein 5.1 g/dL (6.2-8.2)
[2021-05-11] MEDS: CALCIUM CARBONATE 500 MG CHEWABLE PO SCH (11:51)
[2021-05-11] MEDS: CYANOCOBALAMIN 500 MCG TAB PO SCH (11:51)
[2021-05-11] MEDS: MAGNESIUM OXIDE 400 MG TAB PO SCH (11:51)
== END 2021-05-11 12:37 | disposition home health service (06) | DRG 291 ==
LOC: EC 11:09 → 3SCARD 15:19 → 4SSUR 05-09 19:00
PROVIDERS: ADMIT Internal Medicine; ATTEND Internal Medicine
DX: I11.0 Hypertensive heart disease with heart failure (principal); J96.21 Acute and chronic respiratory failure with hypoxia; J44.1 Chronic obstructive pulmonary disease with (acute) exacerbation; I48.19 Other persistent atrial fibrillation; E87.3 Alkalosis; I50.33 Acute on chronic diastolic (congestive) heart failure; I25.10 Atherosclerotic heart disease of native coronary artery without angina pectoris; I27.22 Pulmonary hypertension due to left heart disease; I49.5 Sick sinus syndrome; K21.9 Gastro-esophageal reflux disease without esophagitis; K59.00 Constipation, unspecified; M81.0 Age-related osteoporosis without current pathological fracture; E78.5 Hyperlipidemia, unspecified; E86.0 Dehydration; T38.0X5A Adverse effect of glucocorticoids and synthetic analogues, initial encounter; Z96.1 Presence of intraocular lens; M19.90 Unspecified osteoarthritis, unspecified site; E11.65 Type 2 diabetes mellitus with hyperglycemia; H35.30 Unspecified macular degeneration; Z86.16 Personal history of COVID-19; Z87.01 Personal history of pneumonia (recurrent); Z79.01 Long term (current) use of anticoagulants; Z99.81 Dependence on supplemental oxygen; Z79.4 Long term (current) use of insulin; Z79.51 Long term (current) use of inhaled steroids; Z79.52 Long term (current) use of systemic steroids; Z79.899 Other long term (current) drug therapy; Z80.0 Family history of malignant neoplasm of digestive organs; Z82.49 Family history of ischemic heart disease and other diseases of the circulatory system; Z85.828 Personal history of other malignant neoplasm of skin; Z87.891 Personal history of nicotine dependence; Z95.0 Presence of cardiac pacemaker
CPT/HCPCS: 36415; 71045; 71046; 80053; 80162; 82728; 83615; 83735; 83880; 84145; 84484; 85025; 85379; 86140; 93005; 94640; 94660; 94760; 96374; 99285

== ENCOUNTER 2021-07-10 02:59 | Inpatient (IN) | payer MEDICARE ==
[2021-07-10] MEDS ORDERED: IPRATROPIUM-ALBUTEROL 3 ML NEB INHALATION STA (03:51)
[2021-07-10] MEDS ORDERED: ACETAMINOPHEN TAB 500 MG TAB PO STA (03:51)
--- NOTE | 2021-07-10 03:51 | ED ---
Weakness HPI - General Chief complaint: GI Bleed Stated complaint: Difficulty Breathing, Blood in stool, Diarrhea Time Seen by Provider: 07/10/21 03:07 Source: patient, RN notes reviewed, old records reviewed Mode of arrival: wheelchair Limitations: physical limitation - History of Present Illness Initial comments: This is a 89-year-old female to the ER for evaluation of weakness, significantly weak and at times near syncopal. She is on blood thinning medication patient has significant bright red bloody bowel movement prior to arrival. She feels w eak and lightheaded with no abdominal pain. Patient is short of breath but always states she feels short of breath. No fevers MD Complaint: generalized weakness, lack of energy, difficulty walking -: hour(s) Location: generalized Severity: severe Severity scale (1-10): 10 Quality: constant Consistency: constant Improves with: none Worsens with: movement, exertion Context: recent illness, history of similar Associated Symptoms: dark stools, shortness of breath - Related Data Home Medications Medication Instructions Recorded Confirmed Famotidine [Pepcid] 20 mg PO AC-BID 10/23/17 07/10/21 Albuterol Inhaler [Ventolin Hfa 1 - 2 puff INHALATION RT-QID PRN 06/16/20 07/10/21 Inhaler] Atorvastatin [Lipitor] 20 mg PO HS 06/16/20 07/10/21 Digoxin [Digitek] 62.5 mcg PO MOTUWETHFRSA 06/16/20 07/10/21 Isosorbide Mononitrate ER [Imdur] 15 mg PO DAILY 06/16/20 07/10/21 Omeprazole 20 mg PO DAILY 06/16/20 07/10/21 Risedronate Sodium [Risedronate 35 mg PO MO 06/16/20 07/10/[address]] Calcium Carbonate [Calcium] 600 mg PO AC-LUNCH 01/21/21 07/10/21 Cyanocobalamin (Vitamin B-12) 1,000 mcg PO AC-LUNCH 01/21/21 07/10/21 [Vitamin B-12] Dapagliflozin Propanediol [Farxiga] 5 mg PO DAILY 01/21/21 07/10/21 Ipratropium-Albuterol Nebulize 3 ml INHALATION RT-QID 01/21/21 07/10/21 [Duoneb 0.5 mg-3 mg/3 ml Soln] Losartan [Cozaar] 25 mg PO DAILY 01/21/21 07/10/21 Magnesium Oxide [Mag-Ox] 400 mg PO AC-LUNCH 01/21/21 07/10/21 Melatonin 5 mg PO HS 01/21/21 07/10/21 metFORMIN HCL [Glucophage] 1,000 mg PO AC-SUPPER 01/21/21 07/10/21 Potassium Chloride [Potassium 10 meq PO AC-BID 05/04/21 07/10/21 Chloride ER] Metoprolol Tartrate [Lopressor] 100 mg PO BID 07/10/21 07/10/21 Previous Rx's Medication Instructions Recorded Apixaban [Eliquis] 2.5 mg PO BID tablet 08/11/17 Budesonide-Formot 160-4.5 Mcg 2 puff INHALATION RT-BID #1 puff 01/24/21 [Symbicort 160-4.5 Mcg Inhaler] Ascorbic Acid [Vitamin C] 500 mg PO BID tab 05/01/21 Cholecalciferol [Vitamin D3 (25 50 mcg PO DAILY tablet 05/01/21 Mcg = 1000 Iu)] predniSONE 10 mg PO DAILY #0 05/01/21 Diltiazem Cd [Cardizem CD] 360 mg PO DAILY #30 capsule 05/11/21 Furosemide [Lasix] 40 mg PO BID@0900,1600 #60 tab 05/11/21 Allergies Allergy/AdvReac Type Severity Reaction Status Date / Time Sulfa (Sulfonamide Allergy Unknown Verified 07/10/21 08:34 Antibiotics) Childhood shellfish derived [Shellfish] AdvReac Nausea & Verified 07/10/21 08:34 Vomiting & Diarrhea Review of Systems ROS Statement: Those systems with pertinent positive or pertinent negative responses have been documented in the HPI. ROS Other: All systems not noted in ROS Statement are negative. Past Medical History Past Medical History: Atrial Fibrillation, Cancer, Heart Failure, COPD, GERD/Reflux, Hyperlipidemia, Hypertension, Osteoarthritis (OA) Additional Past Medical History / Comment(s): skin cancer on scalp, macular degeneration History of Any Multi-Drug Resistant Organisms: None Reported Past Surgical History: Hernia Repair, Pacemaker, Tonsillectomy Additional Past Surgical History / Comment(s): skin cancer removed from scalp, andrew cataracts Past Anesthesia/Blood Transfusion Reactions: No Reported Reaction Type of Cardiac Device: Permanent Pacemaker Device Placement Date:: 2017 Past Psychological History: No Psychological Hx Reported Smoking Status: Former smoker Past Alcohol Use History: Occasional Past Drug Use History: None Reported - Past Family History Father Family Medical History: Coronary Artery Disease (CAD) Additional Family Medical History / Comment(s): Father at age 91 with history of heart disease. Mother Family Medical History: Cancer Additional Family Medical History / Comment(s): Mother at age 87 from pancreatic cancer. Brother(s) Additional Family Medical History / Comment(s): Patient has 1 brother that at age 93 from liver cancer. Sister(s) Additional Family Medical History / Comment(s): Patient has 2 sisters with no major medical problems. Daughter(s) Additional Family Medical History / Comment(s): Patient has a total of 4 children, 3 daughters and 1 son. One daughter at a young age and a motor vehicle accident. General Exam Limitations: physical limitation General appearance: alert, in no apparent distress Head exam: Present: atraumatic, normocephalic, normal inspection Eye exam: Present: normal appearance, PERRL, EOMI. Absent: scleral icterus, conjunctival injection, periorbital swelling ENT exam: Present: normal exam, mucous membranes moist Neck exam: Present: normal inspection. Absent: tenderness, meningismus, lymphadenopathy Respiratory exam: Present: normal lung sounds bilaterally. Absent: respiratory distress, wheezes, rales, rhonchi, stridor Cardiovascular Exam: Present: regular rate, normal rhythm, normal heart sounds. Absent: systolic murmur, diastolic murmur, rubs, gallop, clicks GI/Abdominal exam: Present: soft, normal bowel sounds. Absent: distended, tende rness, guarding, rebound, rigid Extremities exam: Present: normal inspection, full ROM, normal capillary refill. Absent: tenderness, pedal edema, joint swelling, calf tenderness Back exam: Present: normal inspection Neurological exam: Present: alert, oriented X3, CN II-XII intact Psychiatric exam: Present: normal affect, normal mood Skin exam: Present: warm, dry, intact, normal color. Absent: rash Course Vital Signs 07/10/21 07/10/21 07/10/21 03:04 03:30 04:40 Temperature 96.8 F L Pulse Rate 95 80 74 Respiratory 22 22 18 Rate Blood Pressure 70/37 86/45 84/44 O2 Sat by Pulse 78 L 97 100 Oximetry 07/10/21 07/10/21 07/10/21 05:16 05:26 05:56 Temperature 97.0 F L 97.0 F L 97.3 F L Pulse Rate 70 82 89 Respiratory 18 18 18 Rate Blood Pressure 100/35 82/29 71/50 O2 Sat by Pulse 100 100 100 Oximetry 07/10/21 07/10/21 07/10/21 07:15 07:21 07:42 Temperature 97.5 F L Pulse Rate 120 H 122 H Respiratory 16 18 Rate Blood Pressure 102/51 94/53 O2 Sat by Pulse 100 100 100 Oximetry 07/10/21 07/10/21 07/10/21 08:00 08:49 09:34 Temperature 97.3 F L Pulse Rate 120 H 122 H 122 H Respiratory 18 18 18 Rate Blood Pressure 106/50 126/73 113/64 O2 Sat by Pulse 98 100 100 Oximetry 07/10/21 07/10/21 07/10/21 09:37 09:47 10:17 Temperature 97.5 F L 97.7 F 97.6 F Pulse Rate 122 H 123 H 123 H Respiratory 18 18 18 Rate Blood Pressure 113/64 124/67 116/70 O2 Sat by Pulse 100 100 99 Oximetry 07/10/21 07/10/21 07/10/21 10:40 11:19 11:29 Temperature Pulse Rate 120 H 123 H 124 H Respiratory 18 Rate Blood Pressure 112/71 O2 Sat by Pulse 98 Oximetry 07/10/21 07/10/21 07/10/21 11:40 11:53 13:34 Temperature 97.7 F Pulse Rate 123 H 122 H 98 Respiratory 18 18 18 Rate Blood Pressure 106/59 101/61 113/57 O2 Sat by Pulse 99 99 99 Oximetry 07/10/21 07/10/21 07/10/21 15:13 15:25 16:55 Temperature Pulse Rate 114 H 121 H 120 H Respiratory 18 18 Rate Blood Pressure 107/57 O2 Sat by Pulse 97 98 Oximetry 07/10/21 07/10/21 07/10/21 19:06 19:17 19:52 Temperature 97.5 F L Pulse Rate 121 H 123 H 121 H Respiratory 18 Rate Blood Pressure 119/60 O2 Sat by Pulse 93 L Oximetry 07/10/21 22:18 Temperature 97.9 F Pulse Rate 107 H Respiratory 18 Rate Blood Pressure 110/66 O2 Sat by Pulse 95 Oximetry - Reevaluation(s) Reevaluation #1: Medical record is reviewed Patient symptoms are significant of here in the ER Blood pressure is improving after transfusion Patient informed results and questions answered - Consultations Consultation #1: I did speak with ICU physician who agrees to admit this patient Consultation #2: Spoke with Dr. Gutiérrez who also agrees to admit the patient EKG Findings - EKG Comments: EKG Findings:: EKG shows a flutter a 84 QRS 82 QTC 437 Medical Decision Making - Medical Decision Making 89 female to the emergency department with the GI bleed she has on [place] that has been given K centra, patient [place] for trending of hemoglobin will be given transfusion here in the ER - Lab Data Result diagrams: 07/10/21 15:29 07/10/21 03:55 Lab Results 07/10/21 07/10/21 07/10/21 Range/Units 03:55 03:55 03:55 WBC 10.4 (3.8-10.6) k/uL RBC 3.61 L (3.80-5.40) m/uL Hgb 10.7 L D (11.4-16.0) gm/dL Hct 34.5 (34.0-46.0) % MCV 95.6 (80.0-100.0) fL MCH 29.5 (25.0-35.0) pg MCHC 30.9 L (31.0-37.0) g/dL RDW 15.3 (11.5-15.5) % Plt Count 301 (150-450) k/uL MPV 8.2 Neutrophils % 52 % Lymphocytes % 35 % Monocytes % 8 % Eosinophils % 3 % Basophils % 0 % Neutrophils # 5.4 (1.3-7.7) k/uL Lymphocytes # 3.7 (1.0-4.8) k/uL Monocytes # 0.8 (0-1.0) k/uL Eosinophils # 0.3 (0-0.7) k/uL Basophils # 0.0 (0-0.2) k/uL Hypochromasia Marked PT 12.0 (9.0-12.0) sec INR 1.1 (<1.2) APTT 22.2 (22.0-30.0) sec Sodium 135 L (137-145) mmol/L Potassium 5.3 H (3.5-5.1) mmol/L Chloride 97 L (98-107) mmol/L Carbon Dioxide 28 (22-30) mmol/L Anion Gap 10 mmol/L BUN 35 H (7-17) mg/dL Creatinine 1.00 (0.52-1.04) mg/dL Est GFR (CKD-EPI)AfAm 58 (>60 ml/min/1.73 sqM) Est GFR (CKD-EPI)NonAf 50 (>60 ml/min/1.73 sqM) Glucose 193 H (74-99) mg/dL Lactic Ac Sepsis Rflx Plasma Lactic Acid Lion (0.7-2.0) mmol/L Calcium 8.2 L (8.4-10.2) mg/dL Magnesium 2.3 (1.6-2.3) mg/dL Ferritin 89.6 (10.0-291.0) ng/mL Total Bilirubin 0.7 (0.2-1.3) mg/dL AST 22 (14-36) U/L ALT 14 (4-34) U/L Alkaline Phosphatase 36 L (38-126) U/L Lactate Dehydrogenase 611 (313-618) U/L C-Reactive Protein 0.5 (<1.0) mg/dL NT-Pro-B Natriuret Pep pg/mL Total Protein 4.9 L (6.3-8.2) g/dL Albumin 2.9 L (3.5-5.0) g/dL Blood Type Blood Type Confirm Blood Type Recheck Bld Type Recheck Status Antibody Screen Crossmatch Spec Expiration Date 07/10/21 07/10/21 07/10/21 Range/Units 03:55 03:55 03:55 WBC (3.8-10.6) k/uL RBC (3.80-5.40) m/uL Hgb (11.4-16.0) gm/dL Hct (34.0-46.0) % MCV (80.0-100.0) fL MCH (25.0-35.0) pg MCHC (31.0-37.0) g/dL RDW (11.5-15.5) % Plt Count (150-450) k/uL MPV Neutrophils % % Lymphocytes % % Monocytes % % Eosinophils % % Basophils % % Neutrophils # (1.3-7.7) k/uL Lymphocytes # (1.0-4.8) k/uL Monocytes # (0-1.0) k/uL Eosinophils # (0-0.7) k/uL Basophils # (0-0.2) k/uL Hypochromasia PT (9.0-12.0) sec INR (<1.2) APTT (22.0-30.0) sec Sodium (137-145) mmol/L Potassium (3.5-5.1) mmol/L Chloride (98-107) mmol/L Carbon Dioxide (22-30) mmol/L Anion Gap mmol/L BUN (7-17) mg/dL Creatinine (0.52-1.04) mg/dL Est GFR (CKD-EPI)AfAm (>60 ml/min/1.73 sqM) Est GFR (CKD-EPI)NonAf (>60 ml/min/1.73 sqM) Glucose (74-99) mg/dL Lactic Ac Sepsis Rflx Plasma Lactic Acid Lion 6.3 H* (0.7-2.0) mmol/L Calcium (8.4-10.2) mg/dL Magnesium (1.6-2.3) mg/dL Ferritin (10.0-291.0) ng/mL Total Bilirubin (0.2-1.3) mg/dL AST (14-36) U/L ALT (4-34) U/L Alkaline Phosphatase (38-126) U/L Lactate Dehydrogenase (313-618) U/L C-Reactive Protein (<1.0) mg/dL NT-Pro-B Natriuret Pep 2420 pg/mL Total Protein (6.3-8.2) g/dL Albumin (3.5-5.0) g/dL Blood Type A Positive Blood Type Confirm Blood Type Recheck No Previous Record Bld Type Recheck Status CABO Indicated Antibody Screen NEGATIVE Crossmatch See Detail Spec Expiration Date 07/13/2021 - 235407/10/21 07/10/21 Range/Units 04:00 05:31 WBC (3.8-10.6) k/uL RBC (3.80-5.40) m/uL Hgb (11.4-16.0) gm/dL Hct (34.0-46.0) % MCV (80.0-100.0) fL MCH (25.0-35.0) pg MCHC (31.0-37.0) g/dL RDW (11.5-15.5) % Plt Count (150-450) k/uL MPV Neutrophils % % Lymphocytes % % Monocytes % % Eosinophils % % Basophils % % Neutrophils # (1.3-7.7) k/uL Lymphocytes # (1.0-4.8) k/uL Monocytes # (0-1.0) k/uL Eosinophils # (0-0.7) k/uL Basophils # (0-0.2) k/uL Hypochromasia PT (9.0-12.0) sec INR (<1.2) APTT (22.0-30.0) sec Sodium (137-145) mmol/L Potassium (3.5-5.1) mmol/L Chloride (98-107) mmol/L Carbon Dioxide (22-30) mmol/L Anion Gap mmol/L BUN (7-17) mg/dL Creatinine (0.52-1.04) mg/dL Est GFR (CKD-EPI)AfAm (>60 ml/min/1.73 sqM) Est GFR (CKD-EPI)NonAf (>60 ml/min/1.73 sqM) Glucose (74-99) mg/dL Lactic Ac Sepsis Rflx Y Plasma Lactic Acid Lion (0.7-2.0) mmol/L Calcium (8.4-10.2) mg/dL Magnesium (1.6-2.3) mg/dL Ferritin (10.0-291.0) ng/mL Total Bilirubin (0.2-1.3) mg/dL AST (14-36) U/L ALT (4-34) U/L Alkaline Phosphatase (38-126) U/L Lactate Dehydrogenase (313-618) U/L C-Reactive Protein (<1.0) mg/dL NT-Pro-B Natriuret Pep pg/mL Total Protein (6.3-8.2) g/dL Albumin (3.5-5.0) g/dL Blood Type Blood Type Confirm A Positive Blood Type Recheck Bld Type Recheck Status Antibody Screen Crossmatch Spec Expiration Date - Radiology Data Radiology results: report reviewed (Chest x-ray is unchanged from prior with p ulmonary fibrosis), image reviewed Critical Care Time Critical Care Time: Yes Total Critical Care Time: 31 Disposition Clinical Impression: Acute exacerbation of chronic obstructive pulmonary disease (COPD), Persistent atrial fibrillation, Gastrointestinal hemorrhage, Lower gastrointestinal h emorrhage, Coagulopathy Disposition: ADMITTED IP TO THIS HOSP Condition: Serious Is patient prescribed a controlled substance at d/c from ED?: No
[2021-07-10] MEDS ORDERED: Kcentra PER PHARMACY 1 EACH MISC MISCELLANE PRN (04:06)
[2021-07-10 04:21] LABS: Basophils % (A) 0 %; Eosinophils # (A) 0.3 k/uL (0-0.7); Eosinophils % (A) 3 %; HCT 34.5 % (34.0-46.0); Hypochromasia Marked; Lymphocytes # (A) 3.7 k/uL (1.0-4.8); Lymphocytes % (A) 35 %; MCH 29.5 pg (25.0-35.0); MCHC 30.9 g/dL (31.0-37.0); MCV 95.6 fL (80.0-100.0); Mean Platelet Volume 8.2; Monocytes # (A) 0.8 k/uL (0-1.0); Monocytes % (A) 8 %; Neutrophils # (A) 5.4 k/uL (1.3-7.7); Neutrophils % (A) 52 %; Platelet Count 301 k/uL (150-450); RBC 3.61 m/uL (3.80-5.40); RDW 15.3 % (11.5-15.5); WBC 10.4 k/uL (3.8-10.6)
--- NOTE | 2021-07-10 04:26 | XR ---
EXAMINATION TYPE: XR chest 1V portable DATE OF EXAM: 07/10/2021 COMPARISON: 05/11/2021 HISTORY: Short of breath TECHNIQUE: FINDINGS: Heart size is normal. There is some patchy infiltrate in both lower lobes. There is no hear t failure. Thoracic aorta is atheromatous. There is left axillary pacemaker. There are chest leads. IMPRESSION: There is pulmonary fibrosis. There is mild bilateral lower lobe pulmonary infiltrates pro bably related to combination of fibrosis and pneumonia which is slightly worse on the right side and improved on the left side compared to last exam. No obvious heart failure.
[2021-07-10] MEDS ORDERED: EMPTY BAG 1 BAG with HUMAN PROTHROMBIN COMPLX 2,000 UNIT IV ONE (04:30)
[2021-07-10 04:32] LABS: HGB 10.7 gm/dL (11.4-16.0)
[2021-07-10 04:35] LABS: INR 1.1 (<1.2); Partial Thromboplastin Time 22.2 sec (22.0-30.0)
[2021-07-10 04:46] LABS: Albumin 2.9 g/dL (3.5-5.0); C Reactive Protein 0.5 mg/dL (<1.0); Calcium 8.2 mg/dL (8.4-10.2); Magnesium 2.3 mg/dL (1.6-2.3); Total Bilirubin 0.7 mg/dL (0.2-1.3); Total Protein 4.9 g/dL (6.3-8.2)
[2021-07-10] MEDS ORDERED: SODIUM CHLORIDE 0.9% 500 ML 500 ML IV STA (04:54)
[2021-07-10 05:08] LABS: Potassium 5.3 mmol/L (3.5-5.1)
[2021-07-10] MEDS ORDERED: MORPHINE SULFATE 4 MG/ML SYRINGE IV PRN (06:20)
[2021-07-10] MEDS ORDERED: NALOXONE 0.4 MG/ML 1 ML VIAL IV PRN (06:20)
[2021-07-10] MEDS ORDERED: IPRATROPIUM-ALBUTEROL 3 ML NEB INHALATION PRN (06:20)
[2021-07-10] MEDS ORDERED: PANTOPRAZOLE 40 MG/10 ML VIAL IV STA (06:20)
[2021-07-10] MEDS: DEXAMETHASONE SOD PHOSPHATE 10 MG/ML 1 ML VIAL IVP STA ×2 (08:10→08:18)
[2021-07-10] MEDS: DIGOXIN 125 MCG TAB PO SCH (09:28)
[2021-07-10] MEDS: DILTIAZEM CD 180 MG CAP.ER.24H PO SCH (09:28)
[2021-07-10] MEDS ORDERED: ALBUTEROL HFA INHALER INHALATION PRN (10:37)
--- NOTE | 2021-07-10 10:46 | P.CNPUL ---
History of Present Illness Consult date: 07/10/21 Requesting physician: Phoenix Gutiérrez Chief complaint: Gastrointestinal bleed. History of present illness: Pulmonary/critical care consult dated 07/10/2021. 89-year-old female, who was seen in the emergency department, early in the morning on July 10. She apparently came in with bloody diarrhea. The patient states that the bleeding started the day prior. She was hoping that it would stop, but when it didn't, she decided to come into the hospital to be evaluated. I spoke to the ER physician about this patient. Apparently they try to transfer the patient to a facility with GI specialist, but nobody would accept her, because of over crowding and lack of beds. The patient is currently in the ER, room 1. She's on 2 L nasal cannula. Her coronavirus testing on this admission was negative although, she apparently was in the hospital April when coronavirus infection. She got a central as well as a unit of packed red blood cells for her GI bleed. She was on a factor X a inhibitor. Currently she is resting comfortably. She is not having any abdominal pain. She does have some mild shortness of breath, but she does have chronic lung disease, and I believe her shortness of breath is pretty much at baseline. White count 10.4, hemoglobin 10.7, hematocrit 34.5, and platelet count 301,000. PT, INR, and PTT are normal. Sodium 135, potassium 5.3, chlorides 97, CO2 28, anion gap 10, BUN 35, with a creatinine of 1. Plasma lactic acid was 6.3. Repeat was 1.5. N- terminal proBNP was 2420. Testing for murdock virus was negative. Chest x-ray apparently shows some fibrotic changes in the lower lobes. Currently, we are not able to review the x-ray ourselves. Review of Systems REVIEW OF SYSTEMS: CONSTITUTIONAL: [Negative.] NEUROLOGIC: [ Negative.] HEENT: [ Negative.] CARDIAC: [Negative.] PULMONARY: Chronic shortness of breath, at baseline. GI: Bloody diarrhea. : [Negative.] RHEUMATOLOGIC: [ Negative.] IMMUNOLOGIC: [ Negative.] ENDOCRINE: [Negative. ] DERMATOLOGIC: [Negative.] Past Medical History Past Medical History: Atrial Fibrillation, Cancer, Heart Failure, COPD, GERD/Reflux, Hyperlipidemia, Hypertension, Osteoarthritis (OA) Additional Past Medical History / Comment(s): skin cancer on scalp, macular degeneration History of Any Multi-Drug Resistant Organisms: None Reported Past Surgical History: Hernia Repair, Pacemaker, Tonsillectomy Additional Past Surgical History / Comment(s): skin cancer removed from scalp, andrew cataracts Past Anesthesia/Blood Transfusion Reactions: No Reported Reaction Type of Cardiac Device: Permanent Pacemaker Device Placement Date:: 2017 Past Psychological History: No Psychological Hx Reported Smoking Status: Former smoker Past Alcohol Use History: Occasional Past Drug Use History: None Reported - Past Family History Father Family Medical History: Coronary Artery Disease (CAD) Additional Family Medical History / Comment(s): Father at age 91 with history of heart disease. Mother Family Medical History: Cancer Additional Family Medical History / Comment(s): Mother at age 87 from pancreatic cancer. Brother(s) Additional Family Medical History / Comment(s): Patient has 1 brother that at age 93 from liver cancer. Sister(s) Additional Family Medical History / Comment(s): Patient has 2 sisters with no major medical problems. Daughter(s) Additional Family Medical History / Comment(s): Patient has a total of 4 children, 3 daughters and 1 son. One daughter at a young age and a motor vehicle accident. Medications and Allergies Home Medications Medication Instructions Recorded Confirmed Type Apixaban [Eliquis] 2.5 mg PO BID tablet 08/11/17 07/10/21 Rx Famotidine [Pepcid] 20 mg PO AC-BID 10/23/17 07/10/21 History Albuterol Inhaler [Ventolin Hfa 1 - 2 puff INHALATION RT-QID PRN 06/16/20 07/10/21 History Inhaler] Atorvastatin [Lipitor] 20 mg PO HS 06/16/20 07/10/21 History Digoxin [Digitek] 62.5 mcg PO MOTUWETHFRSA 06/16/20 07/10/21 History Isosorbide Mononitrate ER [Imdur] 15 mg PO DAILY 06/16/20 07/10/21 History Omeprazole 20 mg PO DAILY 06/16/20 07/10/21 History Risedronate Sodium [Risedronate 35 mg PO MO 06/16/20 07/10/[address]] Calcium Carbonate [Calcium] 600 mg PO AC-LUNCH 01/21/21 07/10/21 History Cyanocobalamin (Vitamin B-12) 1,000 mcg PO AC-LUNCH 01/21/21 07/10/21 History [Vitamin B-12] Dapagliflozin Propanediol [Farxiga] 5 mg PO DAILY 01/21/21 07/10/21 History Ipratropium-Albuterol Nebulize 3 ml INHALATION RT-QID 01/21/21 07/10/21 History [Duoneb 0.5 mg-3 mg/3 ml Soln] Losartan [Cozaar] 25 mg PO DAILY 01/21/21 07/10/21 History Magnesium Oxide [Mag-Ox] 400 mg PO AC-LUNCH 01/21/21 07/10/21 History Melatonin 5 mg PO HS 01/21/21 07/10/21 History metFORMIN HCL [Glucophage] 1,000 mg PO AC-SUPPER 01/21/21 07/10/21 History Budesonide-Formot 160-4.5 Mcg 2 puff INHALATION RT-BID #1 puff 01/24/21 07/10/21 Rx [Symbicort 160-4.5 Mcg Inhaler] Ascorbic Acid [Vitamin C] 500 mg PO BID tab 05/01/21 07/10/21 Rx Cholecalciferol [Vitamin D3 (25 50 mcg PO DAILY tablet 05/01/21 07/10/21 Rx Mcg = 1000 Iu)] predniSONE 10 mg PO DAILY #0 05/01/21 07/10/21 Rx Potassium Chloride [Potassium 10 meq PO AC-BID 05/04/21 07/10/21 History Chloride ER] Diltiazem Cd [Cardizem CD] 360 mg PO DAILY #30 capsule 05/11/21 07/10/21 Rx Furosemide [Lasix] 40 mg PO BID@0900,1600 #60 tab 05/11/21 07/10/21 Rx Metoprolol Tartrate [Lopressor] 100 mg PO BID 07/10/21 07/10/21 History Allergies Allergy/AdvReac Type Severity Reaction Status Date / Time Sulfa (Sulfonamide Allergy Unknown Verified 07/10/21 08:34 Antibiotics) Childhood shellfish derived [Shellfish] AdvReac Nausea & Verified 07/10/21 08:34 Vomiting & Diarrhea Physical Exam Osteopathic Statement: *. No significant issues noted on an osteopathic structural exam other than those noted in the History and Physical/Consult. Vitals: Vital Signs Temp Pulse Resp BP Pulse Ox 07/10/21 10:17 97.6 F 123 H 18 116/70 99 07/10/21 09:47 97.7 F 123 H 18 124/67 100 07/10/21 09:37 97.5 F L 122 H 18 113/64 100 07/10/21 09:34 97.3 F L 122 H 18 113/64 100 07/10/21 08:49 122 H 18 126/73 100 07/10/21 08:00 120 H 18 106/50 98 07/10/21 07:42 97.5 F L 122 H 18 94/53 100 07/10/21 07:21 100 07/10/21 07:15 120 H 16 102/51 100 07/10/21 05:56 97.3 F L 89 18 71/50 100 07/10/21 05:26 97.0 F L 82 18 82/29 100 07/10/21 05:16 97.0 F L 70 18 100/35 100 07/10/21 04:40 74 18 84/44 100 07/10/21 03:30 80 22 86/45 97 07/10/21 03:04 96.8 F L 95 22 70/37 78 L Intake and Output 07/09/21 07/10/21 07/10/21 22:59 06:59 14:59 Intake Total 0 310 Balance 0 310 Intake: Blood Product 0 310 Rc As-1 Unit 0 310 [id number] Rc As-1 Unit 0 [id number] Other: Weight 73.482 kg No acute distress, oriented 3. Currently on 2 L. Saturations are between 99- 100%. HEENT examination is grossly unremarkable. Neck supple. Full range of motion. No adenopathy thyromegaly or neck vein distention. Cardiovascular examination reveals regular rhythm rate. S1-S2 normal. No S3 or S4. No discernible murmur noted. Heart rate about 120 bpm. It is regular. Lungs reveal scattered rhonchi and bibasilar crackles. Breath sounds equal bilaterally. No wheezes. Abdomen soft bowel sounds are heard. No masses or tenderness. Extremities are intact. No cyanosis clubbing or edema. Skin is without rash or lesion. Significant facial flushing or rubor. Neurologic examination is brief but nonfocal. Results - Laboratory Findings CBC and BMP: 07/10/21 03:55 07/10/21 03:55 PT/INR, D-dimer PT 12.0 sec (9.0-12.0) 07/10/21 03:55 INR 1.1 (<1.2) 07/10/21 03:55 Abnormal lab findings: Abnormal Labs 07/10/21 07/10/21 07/10/21 03:55 03:55 03:55 RBC 3.61 L Hgb 10.7 L D MCHC 30.9 L Sodium 135 L Potassium 5.3 H Chloride 97 L BUN 35 H Glucose 193 H Plasma Lactic Acid Lion 6.3 H* Calcium 8.2 L Alkaline Phosphatase 36 L Total Protein 4.9 L Albumin 2.9 L Crossmatch 07/10/21 03:55 RBC Hgb MCHC Sodium Potassium Chloride BUN Glucose Plasma Lactic Acid Lion Calcium Alkaline Phosphatase Total Protein Albumin Crossmatch See Detail - Diagnostic Findings Chest x-ray: image reviewed Assessment and Plan Assessment: Acute gastrointestinal bleed. History of atrial fibrillation. History of heart failure. History of skin cancer. History of COPD. History of gastroesophageal reflux disease. History of hyperlipidemia. History of macular degeneration. Status post permanent pacemaker insertion. History of pulmonary fibrosis. History of hypertension. History of osteoarthritis. Plan: Plan dated 07/10/2021. The patient did receive 1 unit of PRBCs. The patient also receive 4 factor prothrombin complex. One of the surgeons did agree to see the patient from the standpoint of the GI bleed. The patient appears to be relatively stable. We'll continue to follow. We did agree to an ICU bed, but she stabilizes, and doesn't have any additional bleeding, she may be able to be downgraded. We will continue to follow. Her respiratory status is stable. She is on 2 L. Time with Patient: Greater than 30
[2021-07-10] MEDS: IPRATROPIUM-ALBUTEROL 3 ML NEB INHALATION SCH ×3 (11:19→19:04)
--- NOTE | 2021-07-10 11:44 | P.GSCN ---
<Daily Parekh - Last Filed: 07/10/21 11:30> History of Present Illness Consult date: 07/10/21 History of present illness: CHIEF COMPLAINT: Blood in stools HISTORY OF PRESENT ILLNESS: This is a 89-year-old female with a history of atrial fibrillation anticoagulated with Eliquis. Patient presents to the emergency room with complaints of blood in her stool. She reports that she started noting blood in the stools yesterday. She had about 5 bloody BMs. She reports that the blood was noted around the stool in the stools were dark in color. She's never had a GI bleed before. She reports that her last colonoscopy was when she was 71 years old and that was negative. She denies any abdominal pain. Denies any nausea or vomiting. Hemoglobin on admission is 10.7. Hemoglobin in May was 14. She has been tachycardic. She is receiving 1 unit of blood. She also received Kcentra. She is being admitted to the ICU. She seen by pulmonary service. She is on IV Solu-Medrol. She is on 2 L of oxygen which she is on at home for her COPD and pulmonary fibrosis. Patient also has a history of pacemaker. PAST MEDICAL HISTORY: See list. PAST SURGICAL HISTORY: See list. MEDICATIONS: See list. ALLERGIES: See list. SOCIAL HISTORY: No illicit drug use. REVIEW OF SYSTEMS: CONSTITUTIONAL: Denies fever or chills. HEENT: Denies blurred vision, vision changes, or eye pain. Denies hemoptysis CARDIOVASCULAR: Denies chest pain or pressure. RESPIRATORY: No shortness of breath. GASTROINTESTINAL: See HPI for pertinent findings HEMATOLOGIC: Denies bleeding disorders. GENITOURINARY: Denies any blood in urine or increased urinary frequency. SKIN: Denies pruitis. Denies rash. PHYSICAL EXAM: VITAL SIGNS: Reviewed GENERAL: Well-developed in no acute distress. HEENT: No sclera icterus. Extraocular movements grossly intact. Moist buccal mucosa. Head is atraumatic, normocephalic. No nasal drainage. ABDOMEN: Soft. Nondistended. Nontender NEUROLOGIC: Alert and oriented. Cranial nerves II through XII grossly intact. LABORATORY DATA: WBC 10.4 hemoglobin 10.7 platelets 301 INR 1.1 Sodium 135 potassium 5.3 cr1.0 Lactic acid 6.3-1.5 LFTs normal BNP 2420 Covid not detected IMAGING: Chest x-ray diffuse pulmonary fibrosis. There is mild bilateral lower lobe pulmonary infiltrates probably related to combination of fibrosis and pneumonia which is slightly worse on the right side and improved on the left. No obvious heart failure. ASSESSMENT: 1. Acute GI bleed 2. Acute blood loss anemia 3. History of atrial fibrillation on Eliquis 4. History of COPD and pulmonary fibrosis PLAN: -Further recommendations forthcoming per surgeon -Hold Eliquis -Patient received 1 unit of blood and Kcentra -Continue IV fluids -Continue to monitor hemoglobin -Continue monitor for signs and symptoms of bleeding -Continue PPI Thank you for this consultation Physician Thermospray Operator note has been reviewed by physician. Signing provider agrees with the documented findings, assessment, and plan of care. Past Medical History Past Medical History: Atrial Fibrillation, Cancer, Heart Failure, COPD, GERD/Reflux, Hyperlipidemia, Hypertension, Osteoarthritis (OA) Additional Past Medical History / Comment(s): skin cancer on scalp, macular degeneration History of Any Multi-Drug Resistant Organisms: None Reported Past Surgical History: Hernia Repair, Pacemaker, Tonsillectomy Additional Past Surgical History / Comment(s): skin cancer removed from scalp, andrew cataracts Past Anesthesia/Blood Transfusion Reactions: No Reported Reaction Type of Cardiac Device: Permanent Pacemaker Device Placement Date:: 2017 Past Psychological History: No Psychological Hx Reported Smoking Status: Former smoker Past Alcohol Use History: Occasional Past Drug Use History: None Reported - Past Family History Father Family Medical History: Coronary Artery Disease (CAD) Additional Family Medical History / Comment(s): Father at age 91 with history of heart disease. Mother Family Medical History: Cancer Additional Family Medical History / Comment(s): Mother at age 87 from pancreatic cancer. Brother(s) Additional Family Medical History / Comment(s): Patient has 1 brother that at age 93 from liver cancer. Sister(s) Additional Family Medical History / Comment(s): Patient has 2 sisters with no major medical problems. Daughter(s) Additional Family Medical History / Comment(s): Patient has a total of 4 children, 3 daughters and 1 son. One daughter at a young age and a motor vehicle accident. Medications and Allergies Home Medications Medication Instructions Recorded Confirmed Type Apixaban [Eliquis] 2.5 mg PO BID tablet 08/11/17 07/10/21 Rx Famotidine [Pepcid] 20 mg PO AC-BID 10/23/17 07/10/21 History Albuterol Inhaler [Ventolin Hfa 1 - 2 puff INHALATION RT-QID PRN 06/16/20 07/10/21 History Inhaler] Atorvastatin [Lipitor] 20 mg PO HS 06/16/20 07/10/21 History Digoxin [Digitek] 62.5 mcg PO MOTUWETHFRSA 06/16/20 07/10/21 History Isosorbide Mononitrate ER [Imdur] 15 mg PO DAILY 06/16/20 07/10/21 History Omeprazole 20 mg PO DAILY 06/16/20 07/10/21 History Risedronate Sodium [Risedronate 35 mg PO MO 06/16/20 07/10/[address]] Calcium Carbonate [Calcium] 600 mg PO AC-LUNCH 01/21/21 07/10/21 History Cyanocobalamin (Vitamin B-12) 1,000 mcg PO AC-LUNCH 01/21/21 07/10/21 History [Vitamin B-12] Dapagliflozin Propanediol [Farxiga] 5 mg PO DAILY 01/21/21 07/10/21 History Ipratropium-Albuterol Nebulize 3 ml INHALATION RT-QID 01/21/21 07/10/21 History [Duoneb 0.5 mg-3 mg/3 ml Soln] Losartan [Cozaar] 25 mg PO DAILY 01/21/21 07/10/21 History Magnesium Oxide [Mag-Ox] 400 mg PO AC-LUNCH 01/21/21 07/10/21 History Melatonin 5 mg PO HS 01/21/21 07/10/21 History metFORMIN HCL [Glucophage] 1,000 mg PO AC-SUPPER 01/21/21 07/10/21 History Budesonide-Formot 160-4.5 Mcg 2 puff INHALATION RT-BID #1 puff 01/24/21 07/10/21 Rx [Symbicort 160-4.5 Mcg Inhaler] Ascorbic Acid [Vitamin C] 500 mg PO BID tab 05/01/21 07/10/21 Rx Cholecalciferol [Vitamin D3 (25 50 mcg PO DAILY tablet 05/01/21 07/10/21 Rx Mcg = 1000 Iu)] predniSONE 10 mg PO DAILY #0 05/01/21 07/10/21 Rx Potassium Chloride [Potassium 10 meq PO AC-BID 05/04/21 07/10/21 History Chloride ER] Diltiazem Cd [Cardizem CD] 360 mg PO DAILY #30 capsule 05/11/21 07/10/21 Rx Furosemide [Lasix] 40 mg PO BID@0900,1600 #60 tab 05/11/21 07/10/21 Rx Metoprolol Tartrate [Lopressor] 100 mg PO BID 07/10/21 07/10/21 History Allergies Allergy/AdvReac Type Severity Reaction Status Date / Time Sulfa (Sulfonamide Allergy Unknown Verified 07/10/21 08:34 Antibiotics) Childhood shellfish derived [Shellfish] AdvReac Nausea & Verified 07/10/21 08:34 Vomiting & Diarrhea Surgical - Exam Vital Signs Temp Pulse Resp BP Pulse Ox 96.8 F L 95 22 70/37 78 L 07/10/21 03:04 07/10/21 03:04 07/10/21 03:04 07/10/21 03:04 07/10/21 03:04 Results - Labs 07/10/21 03:55 07/10/21 03:55 Abnormal Lab Results - Last 24 Hours (Table) 07/10/21 07/10/21 07/10/21 Range/Units 03:55 03:55 03:55 RBC 3.61 L (3.80-5.40) m/uL Hgb 10.7 L D (11.4-16.0) gm/dL MCHC 30.9 L (31.0-37.0) g/dL Sodium 135 L (137-145) mmol/L Potassium 5.3 H (3.5-5.1) mmol/L Chloride 97 L (98-107) mmol/L BUN 35 H (7-17) mg/dL Glucose 193 H (74-99) mg/dL Plasma Lactic Acid Lion 6.3 H* (0.7-2.0) mmol/L Calcium 8.2 L (8.4-10.2) mg/dL Alkaline Phosphatase 36 L (38-126) U/L Total Protein 4.9 L (6.3-8.2) g/dL Albumin 2.9 L (3.5-5.0) g/dL Crossmatch 07/10/21 Range/Units 03:55 RBC (3.80-5.40) m/uL Hgb (11.4-16.0) gm/dL MCHC (31.0-37.0) g/dL Sodium (137-145) mmol/L Potassium (3.5-5.1) mmol/L Chloride (98-107) mmol/L BUN (7-17) mg/dL Glucose (74-99) mg/dL Plasma Lactic Acid Lion (0.7-2.0) mmol/L Calcium (8.4-10.2) mg/dL Alkaline Phosphatase (38-126) U/L Total Protein (6.3-8.2) g/dL Albumin (3.5-5.0) g/dL Crossmatch See Detail Diabetes panel 07/10/21 Range/Units 03:55 Sodium 135 L (137-145) mmol/L Potassium 5.3 H (3.5-5.1) mmol/L Chloride 97 L (98-107) mmol/L Carbon Dioxide 28 (22-30) mmol/L BUN 35 H (7-17) mg/dL Creatinine 1.00 (0.52-1.04) mg/dL Glucose 193 H (74-99) mg/dL Calcium 8.2 L (8.4-10.2) mg/dL AST 22 (14-36) U/L ALT 14 (4-34) U/L Alkaline Phosphatase 36 L (38-126) U/L Total Protein 4.9 L (6.3-8.2) g/dL Albumin 2.9 L (3.5-5.0) g/dL Calcium panel 07/10/21 Range/Units 03:55 Calcium 8.2 L (8.4-10.2) mg/dL Albumin 2.9 L (3.5-5.0) g/dL Pituitary panel 07/10/21 Range/Units 03:55 Sodium 135 L (137-145) mmol/L Potassium 5.3 H (3.5-5.1) mmol/L Chloride 97 L (98-107) mmol/L Carbon Dioxide 28 (22-30) mmol/L BUN 35 H (7-17) mg/dL Creatinine 1.00 (0.52-1.04) mg/dL Glucose 193 H (74-99) mg/dL Calcium 8.2 L (8.4-10.2) mg/dL Adrenal panel 07/10/21 Range/Units 03:55 Sodium 135 L (137-145) mmol/L Potassium 5.3 H (3.5-5.1) mmol/L Chloride 97 L (98-107) mmol/L Carbon Dioxide 28 (22-30) mmol/L BUN 35 H (7-17) mg/dL Creatinine 1.00 (0.52-1.04) mg/dL Glucose 193 H (74-99) mg/dL Calcium 8.2 L (8.4-10.2) mg/dL Total Bilirubin 0.7 (0.2-1.3) mg/dL AST 22 (14-36) U/L ALT 14 (4-34) U/L Alkaline Phosphatase 36 L (38-126) U/L Total Protein 4.9 L (6.3-8.2) g/dL Albumin 2.9 L (3.5-5.0) g/dL <Curtis Hay - Last Filed: 07/10/21 12:26> History of Present Illness History of present illness: I have personally seen and examined the patient, reviewed the WARD ATTENDANT /PAs history, exam and MDM and agree with the assessment and plan as written. Based on total visit time, I have performed more than 50% of the visit. As above. Patient seen in the emergency department. No further bleeding since around 3 in the morning. Denies abdominal pain. No history of similar events. Patient was given blood because of hypotension and bleeding on arrival. Await repeat hemoglobin. We'll tentatively plan upper and lower endoscopy this admission. Continue to hold anticoagulation. We'll follow closely with you. Surgical - Exam Vital Signs Temp Pulse Resp BP Pulse Ox 96.8 F L 95 22 70/37 78 L 07/10/21 03:04 07/10/21 03:04 07/10/21 03:04 07/10/21 03:04 07/10/21 03:04 Results - Labs 07/10/21 03:55 07/10/21 03:55 Abnormal Lab Results - Last 24 Hours (Table) 07/10/21 07/10/21 07/10/21 Range/Units 03:55 03:55 03:55 RBC 3.61 L (3.80-5.40) m/uL Hgb 10.7 L D (11.4-16.0) gm/dL MCHC 30.9 L (31.0-37.0) g/dL Sodium 135 L (137-145) mmol/L Potassium 5.3 H (3.5-5.1) mmol/L Chloride 97 L (98-107) mmol/L BUN 35 H (7-17) mg/dL Glucose 193 H (74-99) mg/dL Plasma Lactic Acid Lion 6.3 H* (0.7-2.0) mmol/L Calcium 8.2 L (8.4-10.2) mg/dL Alkaline Phosphatase 36 L (38-126) U/L Total Protein 4.9 L (6.3-8.2) g/dL Albumin 2.9 L (3.5-5.0) g/dL Crossmatch 07/10/21 Range/Units 03:55 RBC (3.80-5.40) m/uL Hgb (11.4-16.0) gm/dL MCHC (31.0-37.0) g/dL Sodium (137-145) mmol/L Potassium (3.5-5.1) mmol/L Chloride (98-107) mmol/L BUN (7-17) mg/dL Glucose (74-99) mg/dL Plasma Lactic Acid Lion (0.7-2.0) mmol/L Calcium (8.4-10.2) mg/dL Alkaline Phosphatase (38-126) U/L Total Protein (6.3-8.2) g/dL Albumin (3.5-5.0) g/dL Crossmatch See Detail Diabetes panel 07/10/21 Range/Units 03:55 Sodium 135 L (137-145) mmol/L Potassium 5.3 H (3.5-5.1) mmol/L Chloride 97 L (98-107) mmol/L Carbon Dioxide 28 (22-30) mmol/L BUN 35 H (7-17) mg/dL Creatinine 1.00 (0.52-1.04) mg/dL Glucose 193 H (74-99) mg/dL Calcium 8.2 L (8.4-10.2) mg/dL AST 22 (14-36) U/L ALT 14 (4-34) U/L Alkaline Phosphatase 36 L (38-126) U/L Total Protein 4.9 L (6.3-8.2) g/dL Albumin 2.9 L (3.5-5.0) g/dL Calcium panel 07/10/21 Range/Units 03:55 Calcium 8.2 L (8.4-10.2) mg/dL Albumin 2.9 L (3.5-5.0) g/dL Pituitary panel 07/10/21 Range/Units 03:55 Sodium 135 L (137-145) mmol/L Potassium 5.3 H (3.5-5.1) mmol/L Chloride 97 L (98-107) mmol/L Carbon Dioxide 28 (22-30) mmol/L BUN 35 H (7-17) mg/dL Creatinine 1.00 (0.52-1.04) mg/dL Glucose 193 H (74-99) mg/dL Calcium 8.2 L (8.4-10.2) mg/dL Adrenal panel 07/10/21 Range/Units 03:55 Sodium 135 L (137-145) mmol/L Potassium 5.3 H (3.5-5.1) mmol/L Chloride 97 L (98-107) mmol/L Carbon Dioxide 28 (22-30) mmol/L BUN 35 H (7-17) mg/dL Creatinine 1.00 (0.52-1.04) mg/dL Glucose 193 H (74-99) mg/dL Calcium 8.2 L (8.4-10.2) mg/dL Total Bilirubin 0.7 (0.2-1.3) mg/dL AST 22 (14-36) U/L ALT 14 (4-34) U/L Alkaline Phosphatase 36 L (38-126) U/L Total Protein 4.9 L (6.3-8.2) g/dL Albumin 2.9 L (3.5-5.0) g/dL
[2021-07-10] MEDS: METOPROLOL TARTRATE 50 MG TAB PO SCH ×2 (11:46→20:18)
[2021-07-10] MEDS: methylPREDNISolone SOD SUCCI 40 MG/ML 1 ML VIAL IV SCH ×3 (11:52→22:54)
[2021-07-10 12:13] LABS: Ferritin 89.6 ng/mL (10.0-291.0)
--- NOTE | 2021-07-10 13:31 | P.HPIM ---
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 Was last hospitalized in May for acute exacerbation of diastolic heart failure. She presented to the hospital due to blood in her stool with diarrhea. Her initial blood pressure was found to be 70/37, pulse ox was only 78%. EKG atrial flutter with controlled rate. quality assurance monitor chassis his heart rate in the 120s. Hemoglobin 10.7. Potassium 5.3, BUN 35 and creatinine 1. Blood sugar 193. Lactic acid 6.3 with repeat 1.5. Chronic virus PCR not detected. Albumin 2.9. She is status post 500 ml fluid bolus, prothrombin complex concent, and Protonix IV. Chest x-ray reveals pulmonary fibrosis. Mild bilateral lower lobe pulmonary infiltrates probably related to come in a fibrosis and pneumonia slightly worse on the right and improved on the left compared to last exam. No obvious heart failure. GI services are not available at this time and it was requested the patient be transferred to [place] but [place] were unable to take the patient. Patient is seen today in the emergency center waiting for an ICU bed and consult is in place with general surgery, Dr. Hay, less intense this is here to see the patient in the ER. REVIEW OF SYSTEMS Constitutional: no fever no chills, no night sweats. No weight change. Reports weakness, Reports fatigue no lethargy. No daytime sleepiness. HEENT: No headache. No blurred vision or double vision, no loss of vision. No loss of Hearing, no ringing in the ears, no dizziness. No nasal drainage or congestion. No epistaxis. No sore throat, no loss of taste Lungs: Reports shortness of breath, no cough, no sputum production. Reports wheezing. Cardiovascular: No chest pain, no lower extremity edema. positive for palpitations. No paroxysmal nocturnal dyspnea. No orthopnea. No lightheadedness or dizziness. No syncopal episodes. Abdominal: No abdominal pain. No nausea, vomiting. No diarrhea. No constipation. Reports bloody or tarry stools.. No loss of appetite. Genitourinary: No dysuria, increased frequency, urgency. No urinary retention. Musculoskeletal: No myalgias. positive for muscle weakness, no gait dysfunction, no frequent falls. No back pain. No neck pain. Integumentary: No wounds, no lesions. No rash or pruritus. No unusual b ruising. No change in hair or nails. Neurologic: No aphasia. No facial droop. No change in mentation. No head injury. No headache. No paralysis. No paresthesia. Psychiatric: No depression. No anxiety. No mood swings. Endocrine: No abnormal blood sugars. MEDICAL HISTORY Hypertension, hypertensive cardiovascular disease Hyperlipidemia Paroxysmal atrial fibrillation Moderate to severe COPD O2 dependence with chronic hypoxic respiratory failure Macular degeneration Gastroesophageal reflux disease Generalized osteoarthritis steroid -induced osteoporosis. chronic diastolic heart failure. Cor pulmonale. Diabetes mellitus type 2 SURGICAL HISTORY Pacemaker implantation in 2018 Tonsillectomy Hernia repair Removal of skin cancer Bilateral cataract removal and intraocular lens implants SOCIAL HISTORY Patient states that she was a smoker less than a pack a day for 20-30 years and quit 10 years ago. She denies any illicit drug use or alcohol use. She currently lives at home alone. FAMILY HISTORY Father at age 91 with history of heart disease. Mother at age 87 from pancreatic cancer. Patient has 1 brother that at age 93 from liver cancer. Patient has 2 sisters with no major medical problems. Patient has a total of 4 children, 3 daughters and 1 son. One daughter at a young age and a motor vehicle accident. PHYSICAL EXAMINATION Gen: This is an 89-year-old female, lying down in bed in acute distress currently on BIPAP. HEENT: Head is atraumatic, normocephalic. Pupils equal, round. Sclerae is anicteric, mucous membranes of the mouth are somewhat dry. NECK: Supple. No JVD. No lymphadenopathy. No thyromegaly, decreased carotid upstrokes bilaterally. Chest: decrease breath sounds at the bases with scattered rhonchi, no chest wall tenderness minimal intercostal retractions. Heart: first heart sound is depressed second heart sound is normal there FLORY 2/6 located at the left sternal border, irregularly irregular due to atrial fibrillation. Tachycardia. ABDOMEN: Soft, nontender, nondistended, positive bowel sounds, no hepatosplenomegaly. EXTREMITIES: +2 pedal edema. No calf tenderness. Dorsalis pedis +1 bilatera lly. NEUROLOGICAL: Patient is awake, alert and oriented x3. Cranial nerves 2 through 12 are grossly intact muscle christopher 4 out of 5 in upper and lower extremities bilaterally., ASSESSMENT AND PLAN 1. Acute GI bleed and acute blood loss anemia. Eliquis is on hold. Patient be admitted to the intensive care unit waiting for bed, status post 1 unit of blood and one dose of Kcentra, continue IV fluids, general surgery consult with Dr. Hay continue Protonix 40 mg twice daily IV push 2. Atrial fibrillation w/RVR, paroxysmal. Patient currently in A. fib. Cardiology consult added. Continue Digoxin 125 mcg orally daily, Cardizem CD 360 mg orally daily, Metoprolol 100 mg orally bid. Eliquis 2.5 mg orally bid is on hold. 3. Acute exacerbation of COPD with a prior history of COVID-19 pneumonia. Continue Solu-Medrol 40 mg IV push every 8 hours, DuoNeb 3 mL nebulization 4 times every day, Simcor 2 puffs twice daily, oxygen at 3 L nasal cannula adjust for saturation 92-93%, pulmonary consultation appreciated. 4. Hypertension and hypertensive cardiovascular disease. Continue Losartn 25 mg orally daily, Metoprolol 100 mg orally bid. 5. Hyperlipidemia. Continue Lipitor 20 mg orally daily. 6. Chronic diastolic heart failure. Hold Lasix 20 mg orally bid, continue Losartan 25 mg orally daily and Metoprolol 100 mg orally bid. 7. 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 we will continue with above treatment. 8. GERD. we will continue with Protonix 40 mg orally daily and Pepcid 20 mg po bid 9. CAD. Continue with Metoprolol 100 mg orally bid, Lipitor 20 mg orally daily and Imdur 15 mg orally daily. 10. Diabetes mellitus type 2. we will continue with Metformin 1000 mg orally with supper and Farxiga 5 mg orally daily, we will start sliding scale insulin. 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 we will hold off Residronate. 12. DVT prophylaxis. SCD and Tedhose. Hold eliquis. 2.5 mg orally bid. 13. GI Prophylaxis. we will continue with protonix 40 mg IVP twice daily and pepcid 20 mg orally bid Patient will be admitted to the hospital for a minimum of 2 night stay. DISCHARGE PLAN Home with home care most likely. Impression and plan of care have been directed as dictated by the signing physician. Noelle Convery nurse practitioner acting as scribe for signing physician. Past Medical History Past Medical History: Atrial Fibrillation, Cancer, Heart Failure, COPD, GERD/Reflux, Hyperlipidemia, Hypertension, Osteoarthritis (OA) Additional Past Medical History / Comment(s): skin cancer on scalp, macular degeneration History of Any Multi-Drug Resistant Organisms: None Reported Past Surgical History: Hernia Repair, Pacemaker, Tonsillectomy Additional Past Surgical History / Comment(s): skin cancer removed from scalp, andrew cataracts Past Anesthesia/Blood Transfusion Reactions: No Reported Reaction Type of Cardiac Device: Permanent Pacemaker Device Placement Date:: 2017 Past Psychological History: No Psychological Hx Reported Smoking Status: Former smoker Past Alcohol Use History: Occasional Past Drug Use History: None Reported - Past Family History Father Family Medical History: Coronary Artery Disease (CAD) Additional Family Medical History / Comment(s): Father at age 91 with history of heart disease. Mother Family Medical History: Cancer Additional Family Medical History / Comment(s): Mother at age 87 from pancreatic cancer. Brother(s) Additional Family Medical History / Comment(s): Patient has 1 brother that at age 93 from liver cancer. Sister(s) Additional Family Medical History / Comment(s): Patient has 2 sisters with no major medical problems. Daughter(s) Additional Family Medical History / Comment(s): Patient has a total of 4 children, 3 daughters and 1 son. One daughter at a young age and a motor vehicle accident. Medications and Allergies Home Medications Medication Instructions Recorded Confirmed Type Apixaban [Eliquis] 2.5 mg PO BID tablet 08/11/17 07/10/21 Rx Famotidine [Pepcid] 20 mg PO AC-BID 10/23/17 07/10/21 History Albuterol Inhaler [Ventolin Hfa 1 - 2 puff INHALATION RT-QID PRN 06/16/20 07/10/21 History Inhaler] Atorvastatin [Lipitor] 20 mg PO HS 06/16/20 07/10/21 History Digoxin [Digitek] 62.5 mcg PO MOTUWETHFRSA 06/16/20 07/10/21 History Isosorbide Mononitrate ER [Imdur] 15 mg PO DAILY 06/16/20 07/10/21 History Omeprazole 20 mg PO DAILY 06/16/20 07/10/21 History Risedronate Sodium [Risedronate 35 mg PO MO 06/16/20 07/10/[address]] Calcium Carbonate [Calcium] 600 mg PO AC-LUNCH 01/21/21 07/10/21 History Cyanocobalamin (Vitamin B-12) 1,000 mcg PO AC-LUNCH 01/21/21 07/10/21 History [Vitamin B-12] Dapagliflozin Propanediol [Farxiga] 5 mg PO DAILY 01/21/21 07/10/21 History Ipratropium-Albuterol Nebulize 3 ml INHALATION RT-QID 01/21/21 07/10/21 History [Duoneb 0.5 mg-3 mg/3 ml Soln] Losartan [Cozaar] 25 mg PO DAILY 01/21/21 07/10/21 History Magnesium Oxide [Mag-Ox] 400 mg PO AC-LUNCH 01/21/21 07/10/21 History Melatonin 5 mg PO HS 01/21/21 07/10/21 History metFORMIN HCL [Glucophage] 1,000 mg PO AC-SUPPER 01/21/21 07/10/21 History Budesonide-Formot 160-4.5 Mcg 2 puff INHALATION RT-BID #1 puff 01/24/21 07/10/21 Rx [Symbicort 160-4.5 Mcg Inhaler] Ascorbic Acid [Vitamin C] 500 mg PO BID tab 05/01/21 07/10/21 Rx Cholecalciferol [Vitamin D3 (25 50 mcg PO DAILY tablet 05/01/21 07/10/21 Rx Mcg = 1000 Iu)] predniSONE 10 mg PO DAILY #0 05/01/21 07/10/21 Rx Potassium Chloride [Potassium 10 meq PO AC-BID 05/04/21 07/10/21 History Chloride ER] Diltiazem Cd [Cardizem CD] 360 mg PO DAILY #30 capsule 05/11/21 07/10/21 Rx Furosemide [Lasix] 40 mg PO BID@0900,1600 #60 tab 05/11/21 07/10/21 Rx Metoprolol Tartrate [Lopressor] 100 mg PO BID 07/10/21 07/10/21 History Allergies Allergy/AdvReac Type Severity Reaction Status Date / Time Sulfa (Sulfonamide Allergy Unknown Verified 07/10/21 08:34 Antibiotics) Childhood shellfish derived [Shellfish] AdvReac Nausea & Verified 07/10/21 08:34 Vomiting & Diarrhea Physical Exam Vitals: Vital Signs Temp Pulse Resp BP Pulse Ox 07/10/21 08:00 120 H 18 106/50 98 07/10/21 07:42 97.5 F L 122 H 18 94/53 100 07/10/21 07:21 100 07/10/21 07:15 120 H 16 102/51 100 07/10/21 05:56 97.3 F L 89 18 71/50 100 07/10/21 05:26 97.0 F L 82 18 82/29 100 07/10/21 05:16 97.0 F L 70 18 100/35 100 07/10/21 04:40 74 18 84/44 100 07/10/21 03:30 80 22 86/45 97 07/10/21 03:04 96.8 F L 95 22 70/37 78 L Intake and Output 07/09/21 07/10/21 07/10/21 22:59 06:59 14:59 Intake Total 0 310 Balance 0 310 Intake: Blood Product 0 310 Rc As-1 Unit 0 310 [id number] Other: Weight 73.482 kg Results CBC & Chem 7: 07/10/21 03:55 07/10/21 03:55 Labs: Abnormal Lab Results - Last 24 Hours (Table) 07/10/21 07/10/21 07/10/21 Range/Units 03:55 03:55 03:55 RBC 3.61 L (3.80-5.40) m/uL Hgb 10.7 L D (11.4-16.0) gm/dL MCHC 30.9 L (31.0-37.0) g/dL Sodium 135 L (137-145) mmol/L Potassium 5.3 H (3.5-5.1) mmol/L Chloride 97 L (98-107) mmol/L BUN 35 H (7-17) mg/dL Glucose 193 H (74-99) mg/dL Plasma Lactic Acid Lion 6.3 H* (0.7-2.0) mmol/L Calcium 8.2 L (8.4-10.2) mg/dL Alkaline Phosphatase 36 L (38-126) U/L Total Protein 4.9 L (6.3-8.2) g/dL Albumin 2.9 L (3.5-5.0) g/dL Crossmatch 07/10/21 Range/Units 03:55 RBC (3.80-5.40) m/uL Hgb (11.4-16.0) gm/dL MCHC (31.0-37.0) g/dL Sodium (137-145) mmol/L Potassium (3.5-5.1) mmol/L Chloride (98-107) mmol/L BUN (7-17) mg/dL Glucose (74-99) mg/dL Plasma Lactic Acid Lion (0.7-2.0) mmol/L Calcium (8.4-10.2) mg/dL Alkaline Phosphatase (38-126) U/L Total Protein (6.3-8.2) g/dL Albumin (3.5-5.0) g/dL Crossmatch See Detail
[2021-07-10] MEDS: CALCIUM CARBONATE 500 MG CHEWABLE PO SCH (13:37)
[2021-07-10] MEDS: MAGNESIUM OXIDE 400 MG TAB PO SCH (13:38)
[2021-07-10] MEDS: CYANOCOBALAMIN 500 MCG TAB PO SCH (13:38)
[2021-07-10 15:46] LABS: HCT 38.8 % (34.0-46.0); HGB 12.3 gm/dL (11.4-16.0); Hypochromasia Moderate; MCH 30.4 pg (25.0-35.0); MCHC 31.6 g/dL (31.0-37.0); Mean Platelet Volume 7.3; Platelet Count 187 k/uL (150-450); Poikilocytosis Slight; RBC 4.04 m/uL (3.80-5.40); RDW 15.1 % (11.5-15.5)
[2021-07-10 17:00] LABS: Glucose,Whole Blood 179 mg/dL (75-99)
[2021-07-10] MEDS: INSULIN ASPART (NovoLOG) 100 UNIT/ML VIAL SQ SCH ×2 (17:00→20:29)
[2021-07-10] MEDS: SYMBICORT 160-4.5 MCG INHALER INHALATION SCH (19:05)
[2021-07-10 20:03] LABS: Glucose,Whole Blood 224 mg/dL (75-99)
[2021-07-10] MEDS: PANTOPRAZOLE 40 MG/10 ML VIAL IVP SCH (20:16)
[2021-07-10] MEDS: ATORVASTATIN 20 MG TAB PO SCH (20:18)
[2021-07-10] MEDS: metFORMIN 500 MG TAB PO SCH (20:18)
[2021-07-10] MEDS: ASCORBIC ACID 500 MG TAB PO SCH (20:21)
[2021-07-10] MEDS: MELATONIN 5 MG TABLET PO SCH (20:28)
[2021-07-11 05:54] LABS: Glucose,Whole Blood 154 mg/dL (75-99)
[2021-07-11] MEDS: INSULIN ASPART (NovoLOG) 100 UNIT/ML VIAL SQ SCH ×4 (06:08→20:12)
[2021-07-11] MEDS: IPRATROPIUM-ALBUTEROL 3 ML NEB INHALATION SCH ×4 (08:13→19:46)
[2021-07-11] MEDS: SYMBICORT 160-4.5 MCG INHALER INHALATION SCH ×2 (08:13→19:46)
--- NOTE | 2021-07-11 08:14 | P.CRDCN ---
History of Present Illness Consult date: 07/11/21 Consult reason: atrial fibrillation (with RVR) Chief complaint: GIB History of present illness: HISTORY OF PRESENTING ILLNESS This is a pleasant 89-year-old female past medical history significant for chronic persistent atrial fibrillation (on Eliquis), chronic respiratory failure with oxygen therapy, chronic diastolic heart failure, COPD, hypertension, sick sinus syndrome status post dual-chamber pacemaker implantation in 2018, former nicotine dependence. She follows in the office with Dr. Pina. We have been aske d to see in consultation for atrial fibrillation with RVR. Patient presented to emergency department with complaints of blood in her stool with diarrhea and was also found to be hypoxic and A. fib with RVR with heart rate running in the 120s and 130s on vp client services. Patient is now running right around 100-105. She has been resumed on her home medications. She states she had a bowel movement this morning that was brown, large, no blood or tarriness. She is on a clear liquid diet and tolerating. No nausea or vomiting. She denies having any chest pain, lightheadedness or dizziness, baseline shortness of breath. DIAGNOSTICS EKG reveals atrial fibrillation, heart rate 84 Most recent echocardiogram January 2021 revealed EF 55-60%, mild to moderate aortic regurgiation, mild to moderate tricuspid regurgitation, mild aortic stenosis with a peak/mean grading 23 mmHg/60 mmHg, mild to moderate mitral regurgitation, mild to moderate pulmonary hypertension with an RVSP of 42 mmHg Lexiscan stress test in 2019 in office- normal Telemetry tracings indicate atrial fibrillation with heart rates trend in the [id number] Chest x-ray reveals pulmonary fibrosis. Mild bilateral lower lobe pulmonary infiltrates probably related to come in a fibrosis and pneumonia slightly worse on the right and improved on the left compared to last exam. No obvious heart failure. Laboratory reviewed, troponin negative 1, Hemoglobin 10.7. Potassium 5.3, BUN 35 and creatinine 1. Blood sugar 193. Lactic acid 6.3 with repeat 1.5. Coronavirus PCR not detected. Albumin 2.9. Current home cardiac medications include digoxin 62.5 mcg tuesday-tuesday, potassium chloride, Lopressor 100 mg twice a day, losartan 25 mg daily, Imdur 15 mg daily, Lasix 20 mg twice a day, Cardizem 360 mg daily, Eliquis 2.5 mg twice a day, atorvastatin 20 mg nightly REVIEW OF SYSTEMS At the time of my exam: CONSTITUTIONAL: Denies fever or chills. CARDIOVASCULAR: + Chronic shortness of breath Denies chest pain, orthopnea, PND or palpitations. RESPIRATORY: Denies cough. GASTROINTESTINAL: Denies abdominal pain, diarrhea, constipation, nausea or vomiting. MUSCULOSKELETAL: Denies myalgias. NEUROLOGIC: Denies numbness, tingling, headacbe or weakness. ENDOCRINE: Denies fatigue, weight change, polydipsia or polyurina. GENITOURINARY: Denies burning, hematuria or urgency with micturation. HEMATOLOGIC: Denies history of anemia or bleeding. PHYSICAL EXAMINATION Blood pressure 126/68, heart rate 103, afebrile, maintaining oxygen saturation is 98% on 2 L nasal cannula. CONSTITUTIONAL: No apparent distress. HEENT: Head is normocephalic. Pupils are equal, round. Sclerae anicteric. Mucous membranes of the mouth are moist. No JVD. No carotid bruit. CHEST EXAMINATION: Lungs are coarse breath sounds with few scattered expiratory wheezing bilaterally to auscultation. No chest wall tenderness is noted on palpation or with deep breathing. HEART EXAMINATION: Regular rate and rhythm. S1, S2 heard. No murmurs, gallops or rub. ABDOMEN: Soft, nontender. Positive bowel sounds. EXTREMITIES: 2+ peripheral pulses, no lower extremity edema and no calf tenderness. NEUROLOGIC EXAMINATION: Patient is awake, alert and oriented x3. ASSESSMENT Acute GI bleed and acute blood loss anemia Acute on chronic hypoxic respiratory failure COPD exacerbation A. fib with RVR, currently rate controlled Chronic persistent atrial fibrillation Hypertension Sick sinus syndrome status post dual-chamber pacemaker implantation in 2018 Former nicotine dependence PLAN Continue to hold Eliquis BID due to GI bleed Continue home cardiac medications Cardizem 360mg daily, Digoxin 62.5mg, Lopressor 100 mg twice daily-just timing due to hypotension Agree with holding Lasix for now. Continue statin Continue cardiac telemetry Further recommendations based on clinical course Nurse Practitioner note has been reviewed, I agree with a documented findings and plan of care. Patient was seen and examined. Past Medical History Past Medical History: Atrial Fibrillation, Cancer, Heart Failure, COPD, GERD/Re flux, Hyperlipidemia, Hypertension, Osteoarthritis (OA) Additional Past Medical History / Comment(s): skin cancer on scalp, macular degeneration History of Any Multi-Drug Resistant Organisms: None Reported Past Surgical History: Hernia Repair, Pacemaker, Tonsillectomy Additional Past Surgical History / Comment(s): skin cancer removed from scalp, andrew cataracts Past Anesthesia/Blood Transfusion Reactions: No Reported Reaction Type of Cardiac Device: Permanent Pacemaker Device Placement Date:: 2017 Past Psychological History: No Psychological Hx Reported Smoking Status: Former smoker Past Alcohol Use History: Occasional Past Drug Use History: None Reported - Past Family History Father Family Medical History: Coronary Artery Disease (CAD) Additional Family Medical History / Comment(s): Father at age 91 with history of heart disease. Mother Family Medical History: Cancer Additional Family Medical History / Comment(s): Mother at age 87 from pancreatic cancer. Brother(s) Additional Family Medical History / Comment(s): Patient has 1 brother that at age 93 from liver cancer. Sister(s) Additional Family Medical History / Comment(s): Patient has 2 sisters with no major medical problems. Daughter(s) Additional Family Medical History / Comment(s): Patient has a total of 4 children, 3 daughters and 1 son. One daughter at a young age and a motor vehicle accident. Medications and Allergies Home Medications Medication Instructions Recorded Confirmed Type Apixaban [Eliquis] 2.5 mg PO BID tablet 08/11/17 07/10/21 Rx Famotidine [Pepcid] 20 mg PO AC-BID 10/23/17 07/10/21 History Albuterol Inhaler [Ventolin Hfa 1 - 2 puff INHALATION RT-QID PRN 06/16/20 07/10/21 History Inhaler] Atorvastatin [Lipitor] 20 mg PO HS 06/16/20 07/10/21 History Digoxin [Digitek] 62.5 mcg PO MOTUWETHFRSA 06/16/20 07/10/21 History Isosorbide Mononitrate ER [Imdur] 15 mg PO DAILY 06/16/20 07/10/21 History Omeprazole 20 mg PO DAILY 06/16/20 07/10/21 History Risedronate Sodium [Risedronate 35 mg PO MO 06/16/20 07/10/[address]] Calcium Carbonate [Calcium] 600 mg PO AC-LUNCH 01/21/21 07/10/21 History Cyanocobalamin (Vitamin B-12) 1,000 mcg PO AC-LUNCH 01/21/21 07/10/21 History [Vitamin B-12] Dapagliflozin Propanediol [Farxiga] 5 mg PO DAILY 01/21/21 07/10/21 History Ipratropium-Albuterol Nebulize 3 ml INHALATION RT-QID 01/21/21 07/10/21 History [Duoneb 0.5 mg-3 mg/3 ml Soln] Losartan [Cozaar] 25 mg PO DAILY 01/21/21 07/10/21 History Magnesium Oxide [Mag-Ox] 400 mg PO AC-LUNCH 01/21/21 07/10/21 History Melatonin 5 mg PO HS 01/21/21 07/10/21 History metFORMIN HCL [Glucophage] 1,000 mg PO AC-SUPPER 01/21/21 07/10/21 History Budesonide-Formot 160-4.5 Mcg 2 puff INHALATION RT-BID #1 puff 01/24/21 07/10/21 Rx [Symbicort 160-4.5 Mcg Inhaler] Ascorbic Acid [Vitamin C] 500 mg PO BID tab 05/01/21 07/10/21 Rx Cholecalciferol [Vitamin D3 (25 50 mcg PO DAILY tablet 05/01/21 07/10/21 Rx Mcg = 1000 Iu)] predniSONE 10 mg PO DAILY #0 05/01/21 07/10/21 Rx Potassium Chloride [Potassium 10 meq PO AC-BID 05/04/21 07/10/21 History Chloride ER] Diltiazem Cd [Cardizem CD] 360 mg PO DAILY #30 capsule 05/11/21 07/10/21 Rx Furosemide [Lasix] 40 mg PO BID@0900,1600 #60 tab 05/11/21 07/10/21 Rx Metoprolol Tartrate [Lopressor] 100 mg PO BID 07/10/21 07/10/21 History Allergies Allergy/AdvReac Type Severity Reaction Status Date / Time Sulfa (Sulfonamide Allergy Unknown Verified 07/10/21 08:34 Antibiotics) Childhood shellfish derived [Shellfish] AdvReac Nausea & Verified 07/10/21 08:34 Vomiting & Diarrhea Physical Exam Vitals: Vital Signs Temp Pulse Pulse Resp BP BP Pulse Ox 07/11/21 03:23 97.5 F L 103 H 18 126/68 98 07/11/21 01:22 88 07/10/21 23:48 88 07/10/21 23:00 97.6 F 117 H 18 131/67 100 07/10/21 22:18 97.9 F 107 H 18 110/66 95 07/10/21 19:52 97.5 F L 121 H 18 119/60 93 L 07/10/21 19:17 123 H 07/10/21 19:06 121 H 07/10/21 16:55 120 H 18 98 07/10/21 15:25 121 H 07/10/21 15:13 114 H 18 107/57 97 07/10/21 13:34 98 18 113/57 99 07/10/21 11:53 97.7 F 122 H 18 101/61 99 07/10/21 11:40 123 H 18 106/59 99 07/10/21 11:29 124 H 07/10/21 11:19 123 H 07/10/21 10:40 120 H 18 112/71 98 07/10/21 10:17 97.6 F 123 H 18 116/70 99 07/10/21 09:47 97.7 F 123 H 18 124/67 100 07/10/21 09:37 97.5 F L 122 H 18 113/64 100 07/10/21 09:34 97.3 F L 122 H 18 113/64 100 07/10/21 08:49 122 H 18 126/73 100 07/10/21 08:00 120 H 18 106/50 98 Intake and Output 07/10/21 07/11/21 07/11/21 22:59 06:59 14:59 Other: Voiding Method Toilet # Voids 1 Weight 70.4 kg Results 07/11/21 08:08 07/11/21 08:08 CBC 07/10/21 Range/Units 15:29 WBC 7.0 (3.8-10.6) k/uL RBC 4.04 (3.80-5.40) m/uL Hgb 12.3 (11.4-16.0) gm/dL Hct 38.8 (34.0-46.0) % Plt Count 187 (150-450) k/uL Current Medications Generic Name Dose Route Start Last Admin Trade Name Freq PRN Reason Stop Dose Admin Albuterol Sulfate 2 puff 07/10/21 10:37 Albuterol Hfa Inhaler INHALATION RT-QID PRN Shortness Of Breath Albuterol/Ipratropium 3 ml 07/10/21 06:20 Ipratropium-Albuterol 3 Ml Neb INHALATION RT-Q4H PRN Shortness Of Breath Or Wheezing Albuterol/Ipratropium 3 ml 07/10/21 12:00 07/10/21 19:04 Ipratropium-Albuterol 3 Ml Neb INHALATION 3 ml RT-QID [facility] Administration Ascorbic Acid 500 mg 07/10/21 21:00 07/10/21 20:21 Ascorbic Acid 500 Mg Tab PO 500 mg BID RODRICK Administration Atorvastatin Calcium 20 mg 07/10/21 21:00 07/10/21 20:18 Atorvastatin 20 Mg Tab PO 20 mg HS RODRICK Administration Budesonide/Formoterol Fumarate 2 puff 07/10/21 20:00 07/10/21 19:05 Symbicort 160-4.5 Mcg Inhaler INHALATION 2 puff RT-BID RODRICK Administration Calcium Carbonate/Glycine 500 mg 07/10/21 12:30 07/10/21 13:37 Calcium Carbonate 500 Mg Chewable PO Not Given AC-LUNCH [facility] Cholecalciferol 50 mcg 07/11/21 09:00 Cholecalciferol 25 Mcg (1000 Iu) Tablet PO DAILY [facility] Cyanocobalamin 1,000 mcg 07/10/21 12:30 07/10/21 13:38 Cyanocobalamin 500 Mcg Tab PO Not Given AC-LUNCH [facility] Digoxin 62.5 mcg 07/10/21 09:00 07/10/21 09:28 Digoxin 125 Mcg Tab PO 62.5 mcg MOTUWETHFRSA [facility] Administration Diltiazem HCl 360 mg 07/10/21 09:00 07/10/21 09:28 Diltiazem Cd 180 Mg Cap.Er.24h PO 360 mg DAILY [facility] Administration Insulin Aspart 0 unit 07/10/21 17:30 07/11/21 06:08 Insulin Aspart (Novolog) 100 Unit/Ml Vial SQ 1 unit ACHS [facility] Administration Protocol Isosorbide Mononitrate 15 mg 07/11/21 09:00 Isosorbide Mononitrate Er 15 Mg Tab PO DAILY [facility] Losartan Potassium 25 mg 07/11/21 09:00 Losartan 25 Mg Tab PO DAILY [facility] Magnesium Oxide 400 mg 07/10/21 12:30 07/10/21 13:38 Magnesium Oxide 400 Mg Tab PO Not Given AC-LUNCH [facility] Melatonin 5 mg 07/10/21 21:00 07/10/21 20:28 Melatonin 5 Mg Tablet PO 5 mg HS [facility] Administration Metformin HCl 1,000 mg 07/10/21 17:30 07/10/21 20:18 Metformin 500 Mg Tab PO 1,000 mg AC-SUPPER [facility] Administration Methylprednisolone Sodium Succinate 40 mg 07/10/21 08:15 07/10/21 22:54 Methylprednisolone Sod Succi 40 Mg/Ml 1 Ml Vial IV 40 mg Q8HR [facility] Administration Metoprolol Tartrate 100 mg 07/10/21 10:45 07/10/21 20:18 Metoprolol Tartrate 50 Mg Tab PO 100 mg BID [facility] Administration Morphine Sulfate 4 mg 07/10/21 06:20 Morphine Sulfate 4 Mg/Ml Syringe IV Q2HR PRN Pain Scale 8 to 10 Naloxone HCl 0.2 mg 07/10/21 06:20 Naloxone 0.4 Mg/Ml 1 Ml Vial IV Q2M PRN Opioid Reversal Non-Formulary Medication 5 mg 07/11/21 09:00 Dapagliflozin Propanediol [Farxiga] PO DAILY [facility] Non-Formulary Medication 35 mg 07/13/21 09:00 Risedronate Sodium [Risedronate Sodium Dr] PO MO [facility] Pantoprazole Sodium 40 mg 07/10/21 21:00 07/10/21 20:16 Pantoprazole 40 Mg/10 Ml Vial IVP 40 mg BID [facility]ICK Administration Intake and Output 07/10/21 07/11/21 07/11/21 22:59 06:59 14:59 Other: Voiding Method Toilet # Voids 1 Weight 70.4 kg 07/10/21 15:29 07/10/21 03:55
[2021-07-11 08:46] LABS: Basophils % (A) 0 %; Eosinophils # (A) 0.1 k/uL (0-0.7); Eosinophils % (A) 1 %; HCT 40.7 % (34.0-46.0); HGB 12.9 gm/dL (11.4-16.0); Hypochromasia Moderate; Lymphocytes # (A) 0.9 k/uL (1.0-4.8); Lymphocytes % (A) 9 %; MCH 30.4 pg (25.0-35.0); MCHC 31.6 g/dL (31.0-37.0); MCV 96.1 fL (80.0-100.0); Mean Platelet Volume 7.8; Monocytes # (A) 0.5 k/uL (0-1.0); Monocytes % (A) 5 %; Neutrophils # (A) 8.6 k/uL (1.3-7.7); Neutrophils % (A) 85 %; Platelet Count 227 k/uL (150-450); Poikilocytosis Slight; RBC 4.24 m/uL (3.80-5.40); RDW 14.5 % (11.5-15.5); WBC 10.1 k/uL (3.8-10.6)
[2021-07-11 08:54] LABS: Albumin 3.3 g/dL (3.5-5.0); Calcium 8.2 mg/dL (8.4-10.2); Total Bilirubin 0.8 mg/dL (0.2-1.3); Total Protein 5.7 g/dL (6.3-8.2)
[2021-07-11] MEDS: PANTOPRAZOLE 40 MG/10 ML VIAL IVP SCH ×2 (10:07→20:11)
[2021-07-11] MEDS: CHOLECALCIFEROL 25 MCG (1000 IU) TABLET PO SCH (10:08)
[2021-07-11] MEDS: CYANOCOBALAMIN 500 MCG TAB PO SCH (10:08)
[2021-07-11] MEDS: CALCIUM CARBONATE 500 MG CHEWABLE PO SCH (10:08)
[2021-07-11] MEDS: ASCORBIC ACID 500 MG TAB PO SCH ×2 (10:08→20:11)
[2021-07-11] MEDS: DILTIAZEM CD 180 MG CAP.ER.24H PO SCH ×2 (10:08→13:38)
[2021-07-11] MEDS: METOPROLOL TARTRATE 50 MG TAB PO SCH ×2 (10:08→20:11)
[2021-07-11] MEDS: LOSARTAN 25 MG TAB PO SCH ×2 (10:08→10:28)
[2021-07-11] MEDS: ISOSORBIDE MONONITRATE ER 15 MG TAB PO SCH ×2 (10:12→10:28)
[2021-07-11] MEDS: DIGOXIN 125 MCG TAB PO SCH (10:14)
[2021-07-11] MEDS: methylPREDNISolone SOD SUCCI 40 MG/ML 1 ML VIAL IV SCH ×2 (10:28→17:42)
[2021-07-11] MEDS: NON FORMULARY DRUG (Dapagliflozin Propanediol [Farxiga] 5 MG Tablet) PO SCH (10:37)
--- NOTE | 2021-07-11 11:03 | P.PN ---
Subjective Progress Note Date: 07/11/21 HISTORY OF PRESENT ILLNESS This is an 89-year old- female patient of mine with a previous medical history significant for hypertension and hypertensive cardiovascular disease, hyperlipidemia, Paroxysmal atrial fibrillation, 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 Was last hospitalized in May for acute exacerbation of diastolic heart failure. She presented to the hospital due to blood in her stool with diarrhea. Her initial blood pressure was found to be 70/37, pulse ox was only 78%. EKG atrial flutter with controlled rate. phototypesetting equipment monitor his heart rate in the 120s. Hemoglobin 10.7. Potassium 5.3, BUN 35 and creatinine 1. Blood sugar 193. Lactic acid 6.3 with repeat 1.5. Chronic virus PCR not detected. Albumin 2.9. She is status post 500 ml fluid bolus, prothrombin complex concent, and Protonix IV. Chest x-ray reveals pulmonary fibrosis. Mild bilateral lower lobe pulmonary infiltrates probably related to come in a fibrosis and pneumonia slightly worse on the right and improved on the left compared to last exam. No obvious heart failure. GI services are not available at this time and it was requested the patient be transferred to [facility] but [facility] were unable to take the patient. Patient is seen today in the emergency center waiting for an ICU bed and consult is in place with general surgery, Dr. Hay, less intense this is here to see the patient in the ER. 07/11/21: Patient is sitting up in bed in no apparent distress, she denies any chest pain, she is less short of breath, she has not had any bloody bowel movement, she is currently on clear liquid diet, we'll continue with that for another 24 hours, we'll repeat her hemoglobin today, continue patient current treatment plan, keep off Eliquis for now, hemoglobin from yesterday was stable. REVIEW OF SYSTEMS Constitutional: no fever no chills, no night sweats. No weight change. Reports weakness, Reports fatigue no lethargy. No daytime sleepiness. HEENT: No headache. No blurred vision or double vision, no loss of vision. No loss of Hearing, no ringing in the ears, no dizziness. No nasal drainage or congestion. No epistaxis. No sore throat, no loss of taste Lungs: Reports shortness of breath, no cough, no sputum production. Reports wheezing. Cardiovascular: No chest pain, no lower extremity edema. positive for palpitations. No paroxysmal nocturnal dyspnea. No orthopnea. No lightheadedness or dizziness. No syncopal episodes. Abdominal: No abdominal pain. No nausea, vomiting. No diarrhea. No constipation. Reports bloody or tarry stools.. No loss of appetite. Genitourinary: No dysuria, increased frequency, urgency. No urinary retention. Musculoskeletal: No myalgias. positive for muscle weakness, no gait dysfunction, no frequent falls. No back pain. No neck pain. Integumentary: No wounds, no lesions. No rash or pruritus. No unusual bruising. No change in hair or nails. Neurologic: No aphasia. No facial droop. No change in mentation. No head injury. No headache. No paralysis. No paresthesia. Psychiatric: No depression. No anxiety. No mood swings. Endocrine: No abnormal blood sugars. PHYSICAL EXAMINATION Gen: This is an 89-year-old female, lying down in bed in no acute distress, currently on nasal cannula. HEENT: Head is atraumatic, normocephalic. Pupils equal, round. Sclerae is anicteric, mucous membranes of the mouth are somewhat dry. NECK: Supple. No JVD. No lymphadenopathy. No thyromegaly, decreased carotid upstrokes bilaterally. Chest: decrease breath sounds at the bases with scattered rhonchi, no chest wall tenderness minimal intercostal retractions. Heart: first heart sound is depressed second heart sound is normal there FLORY 2/6 located at the left sternal border, irregularly irregular due to atrial fibrillation. ABDOMEN: Soft, nontender, nondistended, positive bowel sounds, no he patosplenomegaly. EXTREMITIES: +1 pedal edema. No calf tenderness. Dorsalis pedis +1 bilaterally. NEUROLOGICAL: Patient is awake, alert and oriented x3. Cranial nerves 2 through 12 are grossly intact muscle christopher 4 out of 5 in upper and lower extremities bilaterally., ASSESSMENT AND PLAN 1. Acute GI bleed and acute blood loss anemia. Patient did receive 1 unit of packed of also transfusion, continue Protonix 40 mg IV push every 12 hours, general surgery on standby, no reason for any GI workup at this time, unless she started to have bleeding again. 2. Atrial fibrillation w/RVR, paroxysmal. Patient currently in A. fib. Cardiology consult added. Continue Digoxin 62.5 mcg orally daily, Cardizem CD 360 mg orally daily, Metoprolol 100 mg orally bid. Off Eliquis 3. Acute exacerbation of COPD with a prior history of COVID-19 pneumonia. Continue Solu-Medrol 40 mg IV push every 8 hours, DuoNeb 3 mL nebulization 4 times every day, Symbicort 2 puffs twice daily, oxygen at 3 L nasal cannula adjust for saturation 92-93%, pulmonary consultation appreciated. 4. Hypertension and hypertensive cardiovascular disease. Continue Losartn 25 mg orally daily, Metoprolol 100 mg orally bid. 5. Hyperlipidemia. Continue Lipitor 20 mg orally daily. 6. Chronic diastolic heart failure. Hold Lasix 20 mg orally bid, continue Losartan 25 mg orally daily and Metoprolol 100 mg orally bid. 7. 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 we will continue with above treatment. 8. GERD. we will continue with Protonix 40 mg IV push twice a day. 9. CAD. Continue with Metoprolol 100 mg orally bid, Lipitor 20 mg orally daily and Imdur 15 mg orally daily. 10. Diabetes mellitus type 2. we will continue with Metformin 1000 mg orally w ith supper and Farxiga 5 mg orally daily, sliding scale insulin. 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 we will hold off Residronate. 12. DVT prophylaxis. SCD and Tedhose. Hold eliquis. 13. GI Prophylaxis. we will continue with protonix 40 mg IVP twice daily DISCHARGE PLAN Home with home care most likely. Objective - Vital Signs Vital signs: Vital Signs Temp 97.5 F L 07/11/21 03:23 Pulse 104 H 07/11/21 08:27 Resp 18 07/11/21 03:23 BP 126/68 07/11/21 03:23 Pulse Ox 98 07/11/21 03:23 Intake & Output 07/10/21 07/11/21 07/11/21 18:59 06:59 18:59 Intake Total 620 Balance 620 Weight 73.482 kg 70.4 kg Intake: Blood Product 620 Rc As-1 Unit 310 [id number] Rc As-1 Unit 310 [id number] Other: Voiding Method Toilet # Voids 1 - Labs CBC & Chem 7: 07/11/21 08:08 01/08/22 08:08 Labs: Abnormal Lab Results - Last 24 Hours (Table) 07/10/21 07/10/21 07/10/21 Range/Units 03:55 16:58 20:02 POC Glucose (mg/dL) 179 H 224 H (75-99) mg/dL Crossmatch See Detail 07/11/21 Range/Units 05:52 POC Glucose (mg/dL) 154 H (75-99) mg/dL Crossmatch
--- NOTE | 2021-07-11 11:50 | P.PN ---
Subjective Progress Note Date: 07/11/21 Principal diagnosis: GI bleed Patient doing well today. She had a bowel movement this morning that she states had no blood within it. Hemoglobin stable at 12.9. Denies pain. Blood thinners remain on hold. Objective - Vital Signs Vital signs: Vital Signs Temp 98.2 F 07/11/21 10:30 Pulse 106 H 07/11/21 10:30 Resp 16 07/11/21 10:30 BP 102/65 07/11/21 10:30 Pulse Ox 100 07/11/21 10:30 Intake & Output 07/10/21 07/11/21 07/11/21 18:59 06:59 18:59 Intake Total 620 Balance 620 Weight 73.482 kg 70.4 kg Intake: Blood Product 620 As-1 Unit 310 [id number] As-1 Unit 310 [id number] Other: Voiding Method Toilet # Voids 1 - Exam Abdomen: Soft, nontender, nondistended - Labs CBC & Chem 7: 07/11/21 08:08 07/11/21 08:08 Labs: Abnormal Lab Results - Last 24 Hours (Table) 07/10/21 07/10/21 07/10/21 Range/Units 03:55 16:58 20:02 Neutrophils # (1.3-7.7) k/uL Lymphocytes # (1.0-4.8) k/uL Sodium (137-145) mmol/L BUN (7-17) mg/dL Glucose (74-99) mg/dL POC Glucose (mg/dL) 179 H 224 H (75-99) mg/dL Calcium (8.4-10.2) mg/dL Total Protein (6.3-8.2) g/dL Albumin (3.5-5.0) g/dL Crossmatch See Detail 07/11/21 07/11/21 07/11/21 Range/Units 05:52 08:08 08:08 Neutrophils # 8.6 H (1.3-7.7) k/uL Lymphocytes # 0.9 L (1.0-4.8) k/uL Sodium 134 L (137-145) mmol/L BUN 31 H (7-17) mg/dL Glucose 196 H (74-99) mg/dL POC Glucose (mg/dL) 154 H (75-99) mg/dL Calcium 8.2 L (8.4-10.2) mg/dL Total Protein 5.7 L (6.3-8.2) g/dL Albumin 3.3 L (3.5-5.0) g/dL Crossmatch Assessment and Plan (1) Gastrointestinal hemorrhage Narrative/Plan: Patient doing well clinically. Continue clear liquids. Recommend upper and lower endoscopy on Tuesday. Patient is considering and will notify me tomorrow if her decision. Current Visit: Yes Status: Acute Code(s): K92.2 - GASTROINTESTINAL HEMORRHAGE, UNSPECIFIED SNOMED Code(s): 20815136
[2021-07-11 12:01] LABS: Glucose,Whole Blood 195 mg/dL (75-99)
[2021-07-11] MEDS: MAGNESIUM OXIDE 400 MG TAB PO SCH (13:37)
--- NOTE | 2021-07-11 14:42 | P.PN ---
Subjective Progress Note Date: 07/11/21 Principal diagnosis: GI bleed. Pulmonary/critical care consult dated 07/10/2021. 89-year-old female, who was seen in the emergency department, early in the morning on July 10. She apparently came in with bloody diarrhea. The patient states that the bleeding started the day prior. She was hoping that it would stop, but when it didn't, she decided to come into the hospital to be evaluated. I spoke to the ER physician about this patient. Apparently they try to transfer the patient to a facility with GI specialist, but nobody would accept her, because of over crowding and lack of beds. The patient is currently in the ER, room 1. She's on 2 L nasal cannula. Her coronavirus testing on this admission was negative although, she apparently was in the hospital April when coronavirus infection. She got a central as well as a unit of packed red blood cells for her GI bleed. She was on a factor X a inhibitor. Currently she is resting comfortably. She is not having any abdominal pain. She does have some mild shortness of breath, but she does have chronic lung disease, and I believe her shortness of breath is pretty much at baseline. White count 10.4, hemog lobin 10.7, hematocrit 34.5, and platelet count 301,000. PT, INR, and PTT are normal. Sodium 135, potassium 5.3, chlorides 97, CO2 28, anion gap 10, BUN 35, with a creatinine of 1. Plasma lactic acid was 6.3. Repeat was 1.5. N- terminal proBNP was 2420. Testing for murdock virus was negative. Chest x-ray apparently shows some fibrotic changes in the lower lobes. Currently, we are not able to review the x-ray ourselves. Progress note dated 07/11/2021. 89-year-old female, seen in the emergency room yesterday, with GI bleed and bloody diarrhea. The patient states that she's doing much better today. The patient's on 2 L nasal O2. She's not receiving any IV fluids. Apparently, one of the surgeons talked her about a possible colonoscopy. She is very nervous to have it given her age. We talked in detail about it. Anyway, the final decision is hers. The patient is not having any additional bleeding from down below. Current laboratory data includes a white count 10.1, hemoglobin 12.9, hematocrit 40.7, and platelet count 227,000. Sodium is 134, potassium 5, chlorides 99, CO2 28, anion gap 7, BUN 31, with creatinine 0.84. Objective - Vital Signs Vital signs: Vital Signs Temp 97.5 F L 07/11/21 13:40 Pulse 99 07/11/21 13:40 Resp 16 07/11/21 13:40 BP 106/68 07/11/21 13:40 Pulse Ox 100 07/11/21 13:40 Intake & Output 07/10/21 07/11/21 07/11/21 18:59 06:59 18:59 Intake Total 620 Balance 620 Weight 73.482 kg 70.4 kg Intake: Blood Product 620 Rc As-1 Unit 310 [id number] Rc As-1 Unit 310 [id number] Other: Voiding Method Toilet Toilet # Voids 1 - Exam No acute distress, oriented 3. Currently on 2 L. Saturations are in 100%. HEENT examination is grossly unremarkable. Neck supple. Full range of motion. No adenopathy thyromegaly or neck vein distention. Cardiovascular examination reveals regular rhythm rate. S1-S2 normal. No S3 or S4. No discernible murmur noted. Heart rate about 100 bpm. It is regular. Lungs reveal scattered rhonchi and bibasilar crackles. Breath sounds equal bilaterally. No wheezes. Abdomen soft bowel sounds are heard. No masses or tenderness. Extremities are intact. No cyanosis clubbing or edema. Skin is without rash or lesion. Significant facial flushing or rubor. Neurologic examination is brief but nonfocal. - Labs CBC & Chem 7: 07/11/21 08:08 07/11/21 08:08 Labs: Abnormal Lab Results - Last 24 Hours (Table) 07/10/21 07/10/21 07/11/21 Range/Units 16:58 20:02 05:52 Neutrophils # (1.3-7.7) k/uL Lymphocytes # (1.0-4.8) k/uL Sodium (137-145) mmol/L BUN (7-17) mg/dL Glucose (74-99) mg/dL POC Glucose (mg/dL) 179 H 224 H 154 H (75-99) mg/dL Calcium (8.4-10.2) mg/dL Total Protein (6.3-8.2) g/dL Albumin (3.5-5.0) g/dL 07/11/21 07/11/21 07/11/21 Range/Units 08:08 08:08 11:57 Neutrophils # 8.6 H (1.3-7.7) k/uL Lymphocytes # 0.9 L (1.0-4.8) k/uL Sodium 134 L (137-145) mmol/L BUN 31 H (7-17) mg/dL Glucose 196 H (74-99) mg/dL POC Glucose (mg/dL) 195 H (75-99) mg/dL Calcium 8.2 L (8.4-10.2) mg/dL Total Protein 5.7 L (6.3-8.2) g/dL Albumin 3.3 L (3.5-5.0) g/dL Assessment and Plan Assessment: Acute gastrointestinal bleed. History of atrial fibrillation. History of heart failure. History of skin cancer. History of COPD. History of gastroesophageal reflux disease. History of hyperlipidemia. History of macular degeneration. Status post permanent pacemaker insertion. History of pulmonary fibrosis. History of hypertension. History of osteoarthritis. Plan: Plan dated 07/10/2021. The patient did receive 1 unit of PRBCs. The patient also receive 4 factor prothrombin complex. One of the surgeons did agree to see the patient from the standpoint of the GI bleed. The patient appears to be relatively stable. We'll continue to follow. We did agree to an ICU bed, but she stabilizes, and doesn't have any additional bleeding, she may be able to be downgraded. We will continue to follow. Her respiratory status is stable. She is on 2 L. Plan dated 07/11/2021. The patient's doing much better. She's had no further bleeding from the gastrointestinal tract. No more bloody diarrhea, or bright red bleeding per rectum. The surgeon talked to her about a possible colonoscopy. She is unsure as to whether or not she should have it. She's concerned because of her age. Anyway, we discussed it in detail. She will give her some additional follow-up talk to her primary care physician about it. From the pulmonary standpoint, the patient's very stable. She's on 2 L nasal cannula and saturations are 100%. Blood pressure is also very stable. We will continue to follow and make recommendations where appropriate. Time with Patient: Less than 30
[2021-07-11 16:46] LABS: Glucose,Whole Blood 172 mg/dL (75-99)
[2021-07-11] MEDS: metFORMIN 500 MG TAB PO SCH (17:51)
[2021-07-11] MEDS: ATORVASTATIN 20 MG TAB PO SCH (20:11)
[2021-07-11] MEDS: MELATONIN 5 MG TABLET PO SCH (20:11)
[2021-07-11 20:16] LABS: Glucose,Whole Blood 197 mg/dL (75-99)
[2021-07-12] MEDS: methylPREDNISolone SOD SUCCI 40 MG/ML 1 ML VIAL IV SCH ×4 (00:11→23:02)
[2021-07-12] MEDS: INSULIN ASPART (NovoLOG) 100 UNIT/ML VIAL SQ SCH ×4 (06:23→21:02)
[2021-07-12 06:53] LABS: Glucose,Whole Blood 173 mg/dL (75-99)
[2021-07-12] MEDS: SYMBICORT 160-4.5 MCG INHALER INHALATION SCH ×2 (07:43→20:21)
[2021-07-12] MEDS: IPRATROPIUM-ALBUTEROL 3 ML NEB INHALATION SCH ×4 (07:44→20:22)
[2021-07-12 08:41] LABS: Calcium 7.7 mg/dL (8.4-10.2); Total Bilirubin 0.5 mg/dL (0.2-1.3)
[2021-07-12 08:56] LABS: Basophils % (A) 0 %; Eosinophils # (A) 0.2 k/uL (0-0.7); Eosinophils % (A) 2 %; HCT 35.4 % (34.0-46.0); HGB 10.7 gm/dL (11.4-16.0); Hypochromasia Moderate; Lymphocytes # (A) 0.5 k/uL (1.0-4.8); Lymphocytes % (A) 5 %; MCHC 30.2 g/dL (31.0-37.0); MCV 96.2 fL (80.0-100.0); Mean Platelet Volume 7.5; Monocytes # (A) 0.2 k/uL (0-1.0); Monocytes % (A) 2 %; Neutrophils # (A) 9.9 k/uL (1.3-7.7); Neutrophils % (A) 92 %; Platelet Count 197 k/uL (150-450); RBC 3.68 m/uL (3.80-5.40); RDW 14.6 % (11.5-15.5); WBC 10.9 k/uL (3.8-10.6)
[2021-07-12] MEDS: ASCORBIC ACID 500 MG TAB PO SCH ×2 (09:16→21:02)
[2021-07-12] MEDS: CALCIUM CARBONATE 500 MG CHEWABLE PO SCH (09:16)
[2021-07-12] MEDS: PANTOPRAZOLE 40 MG/10 ML VIAL IVP SCH ×2 (09:16→21:02)
[2021-07-12] MEDS: CYANOCOBALAMIN 500 MCG TAB PO SCH (09:16)
[2021-07-12] MEDS: METOPROLOL TARTRATE 50 MG TAB PO SCH ×2 (09:17→21:02)
[2021-07-12] MEDS: LOSARTAN 25 MG TAB PO SCH (09:17)
[2021-07-12] MEDS: CHOLECALCIFEROL 25 MCG (1000 IU) TABLET PO SCH (09:17)
[2021-07-12] MEDS: NON FORMULARY DRUG (Dapagliflozin Propanediol [Farxiga] 5 MG Tablet) PO SCH (09:18)
[2021-07-12] MEDS: ISOSORBIDE MONONITRATE ER 15 MG TAB PO SCH (09:18)
--- NOTE | 2021-07-12 10:43 | P.PN ---
Subjective Progress Note Date: 07/12/21 HISTORY OF PRESENTING ILLNESS This is a pleasant 89-year-old female past medical history significant for c hronic persistent atrial fibrillation (on Eliquis), chronic respiratory failure with oxygen therapy, chronic diastolic heart failure, COPD, hypertension, sick sinus syndrome status post dual-chamber pacemaker implantation in 2018, former nicotine dependence. She follows in the office with Dr. Pina. We have been asked to see in consultation for atrial fibrillation with RVR. Patient presented to emergency department with complaints of blood in her stool with diarrhea and was also found to be hypoxic and A. fib with RVR with heart rate running in the 120s and 130s on desk monitor. Patient is now running right around 100-105. She has been resumed on her home medications. She states she had a bowel movement this morning that was brown, large, no blood or tarriness. She is on a clear liquid diet and tolerating. No nausea or vomiting. She denies having any chest pain, lightheadedness or dizziness, baseline shortness of breath. DIAGNOSTICS EKG reveals atrial fibrillation, heart rate 84 Most recent echocardiogram January 2021 revealed EF 55-60%, mild to moderate aortic regurgiation, mild to moderate tricuspid regurgitation, mild aortic stenosis with a peak/mean grading 23 mmHg/60 mmHg, mild to moderate mitral regurgitation, mild to moderate pulmonary hypertension with an RVSP of 42 mmHg Lexiscan stress test in 2019 in office- normal Telemetry tracings indicate atrial fibrillation with heart rates trend in the [id number] Chest x-ray reveals pulmonary fibrosis. Mild bilateral lower lobe pulmonary infiltrates probably related to come in a fibrosis and pneumonia slightly worse on the right and improved on the left compared to last exam. No obvious heart failure. Laboratory reviewed, troponin negative 1, Hemoglobin 10.7. Potassium 5.3, BUN 35 and creatinine 1. Blood sugar 193. Lactic acid 6.3 with repeat 1.5. Coronavirus PCR not detected. Albumin 2.9. Current home cardiac medications include digoxin 62.5 mcg tuesday-tuesday, potassium chloride, Lopressor 100 mg twice a day, losartan 25 mg daily, Imdur 15 mg daily, Lasix 20 mg twice a day, Cardizem 360 mg daily, Eliquis 2.5 mg twice a day, atorvastatin 20 mg nightly 07/12 Soft and yesterday Imdur and Losartan were held. Blood pressure is again marginal and losartan discontinued, continue to hold Imdur. Patient denies having any chest pain or pressure. She states her breathing is okay. She has been up from bed to the bathroom. She denies having any black stools or bright red bleeding from the rectum. She denies lightheadedness or dizziness. PHYSICAL EXAMINATION Blood pressure 126/68, heart rate 103, afebrile, maintaining oxygen saturation is 98% on 2 L nasal cannula. CONSTITUTIONAL: No apparent distress. HEENT: Head is normocephalic. Pupils are equal, round. Sclerae anicteric. Mucous membranes of the mouth are moist. No JVD. No carotid bruit. CHEST EXAMINATION: Lungs are coarse breath sounds with few scattered expiratory wheezing bilaterally to auscultation. No chest wall tenderness is noted on palpation or with deep breathing. HEART EXAMINATION: Iregular rate and rhythm. S1, S2 heard. Systolic murmur, gallops or rub. ABDOMEN: Soft, nontender. Positive bowel sounds. EXTREMITIES: 2+ peripheral pulses, no lower extremity edema and no calf tenderness. NEUROLOGIC EXAMINATION: Patient is awake, alert and oriented x3. ASSESSMENT Acute GI bleed and acute blood loss anemia Acute on chronic hypoxic respiratory failure COPD exacerbation A. fib with RVR, currently rate controlled Chronic persistent atrial fibrillation Hypertension Sick sinus syndrome status post dual-chamber pacemaker implantation in 2018 Former nicotine dependence PLAN Continue to hold Eliquis due to GI bleed Continue home cardiac medications Cardizem 360mg daily, Digoxin 62.5mg, Lopressor 100 mg twice daily-adjust timing due to hypotension Agree with holding Lasix for now. Losartan discontinued due to hypotension Continue statin Continue cardiac telemetry Further recommendations based on clinical course Nurse Practitioner note has been reviewed, I agree with a documented findings and plan of care. Patient was seen and examined. Objective - Vital Signs Vital signs: Vital Signs Temp 97.5 F L 07/12/21 09:10 Pulse 100 07/12/21 09:10 Resp 16 07/12/21 09:10 BP 105/51 07/12/21 09:10 Pulse Ox 100 07/12/21 09:10 Intake & Output 07/11/21 07/12/21 07/12/21 18:59 06:59 18:59 Intake Total 960 Output Total 0 Balance 960 0 Intake: Oral 960 Output: Urine 0 Stool 0 Urine/Stool Mix 0 Other: Voiding Method Toilet Toilet # Voids 2 0 # Bowel Movements 3 1 0 - Labs CBC & Chem 7: 07/12/21 07:45 07/12/21 07:45 Labs: Abnormal Lab Results - Last 24 Hours (Table) 07/11/21 07/11/21 07/11/21 Range/Units 08:08 11:57 16:37 WBC (3.8-10.6) k/uL RBC (3.80-5.40) m/uL Hgb (11.4-16.0) gm/dL MCHC (31.0-37.0) g/dL Neutrophils # 8.6 H (1.3-7.7) k/uL Lymphocytes # 0.9 L (1.0-4.8) k/uL Sodium (137-145) mmol/L BUN (7-17) mg/dL Glucose (74-99) mg/dL POC Glucose (mg/dL) 195 H 172 H (75-99) mg/dL Calcium (8.4-10.2) mg/dL Total Protein (6.3-8.2) g/dL Albumin (3.5-5.0) g/dL 07/11/21 07/12/21 07/12/21 Range/Units 19:48 06:09 07:45 WBC 10.9 H (3.8-10.6) k/uL RBC 3.68 L (3.80-5.40) m/uL Hgb 10.7 L (11.4-16.0) gm/dL MCHC 30.2 L (31.0-37.0) g/dL Neutrophils # 9.9 H (1.3-7.7) k/uL Lymphocytes # 0.5 L (1.0-4.8) k/uL Sodium (137-145) mmol/L BUN (7-17) mg/dL Glucose (74-99) mg/dL POC Glucose (mg/dL) 197 H 173 H (75-99) mg/dL Calcium (8.4-10.2) mg/dL Total Protein (6.3-8.2) g/dL Albumin (3.5-5.0) g/dL 07/12/21 Range/Units 07:45 WBC (3.8-10.6) k/uL RBC (3.80-5.40) m/uL Hgb (11.4-16.0) gm/dL MCHC (31.0-37.0) g/dL Neutrophils # (1.3-7.7) k/uL Lymphocytes # (1.0-4.8) k/uL Sodium 130 L (137-145) mmol/L BUN 37 H (7-17) mg/dL Glucose 165 H (74-99) mg/dL POC Glucose (mg/dL) (75-99) mg/dL Calcium 7.7 L (8.4-10.2) mg/dL Total Protein 5.0 L (6.3-8.2) g/dL Albumin 3.0 L (3.5-5.0) g/dL
--- NOTE | 2021-07-12 11:02 | P.PN ---
Subjective Progress Note Date: 07/12/21 HISTORY OF PRESENT ILLNESS This is an 89-year old- female patient of mine with a previous medical history significant for hypertension and hypertensive cardiovascular disease, hyperlipidemia, Paroxysmal atrial fibrillation, 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 Was last hospitalized in May for acute exacerbation of diastolic heart failure. She presented to the hospital due to blood in her stool with diarrhea. Her initial blood pressure was found to be 70/37, pulse ox was only 78%. EKG atrial flutter with controlled rate. supervisor drawing his heart rate in the 120s. Hemoglobin 10.7. Potassium 5.3, BUN 35 and creatinine 1. Blood sugar 193. Lactic acid 6.3 with repeat 1.5. Chronic virus PCR not detected. Albumin 2.9. She is status post 500 ml fluid bolus, prothrombin complex concent, and Protonix IV. Chest x-ray reveals pulmonary fibrosis. Mild bilateral lower lobe pulmonary infiltrates probably related to come in a fibrosis and pneumonia slightly worse on the right and improved on the left compared to last exam. No obvious heart failure. GI services are not available at this time and it was requested the patient be transferred to [facility] but [facility] were unable to take the patient. Patient is seen today in the emergency center waiting for an ICU bed and consult is in place with general surgery, Dr. Hay, less intense this is here to see the patient in the ER. 07/11/21: Patient is sitting up in bed in no apparent distress, she denies any chest pain, she is less short of breath, she has not had any bloody bowel movement, she is currently on clear liquid diet, we'll continue with that for another 24 hours, we'll repeat her hemoglobin today, continue patient current treatment plan, keep off Eliquis for now, hemoglobin from yesterday was stable. 07/12: Patient is sitting at the edge of the bed, I had a long conversation with the patient about the upper and lower endoscopy but she stated that she does not want to go for any procedure at this point in time, we'll continue to monitor the patient very closely her hemoglobin did drop to 10.7, I would advance her diet to full liquid diet, and repeat the CBC tomorrow morning if the hemoglobin continue to be dropping then we will re-evaluate the patient again surgery on standby. REVIEW OF SYSTEMS Constitutional: no fever no chills, no night sweats. No weight change. Reports weakness, Reports fatigue no lethargy. No daytime sleepiness. HEENT: No headache. No blurred vision or double vision, no loss of vision. No loss of Hearing, no ringing in the ears, no dizziness. No nasal drainage or congestion. No epistaxis. No sore throat, no loss of taste Lungs: Reports shortness of breath, no cough, no sputum production. Reports wheezing. Cardiovascular: No chest pain, no lower extremity edema. positive for palpitations. No paroxysmal nocturnal dyspnea. No orthopnea. No lightheadedn ess or dizziness. No syncopal episodes. Abdominal: No abdominal pain. No nausea, vomiting. No diarrhea. No constipation. Reports bloody or tarry stools.. No loss of appetite. Genitourinary: No dysuria, increased frequency, urgency. No urinary retention. Musculoskeletal: No myalgias. positive for muscle weakness, no gait dysfunction, no frequent falls. No back pain. No neck pain. Integumentary: No wounds, no lesions. No rash or pruritus. No unusual bruising. No change in hair or nails. Neurologic: No aphasia. No facial droop. No change in mentation. No head injury. No headache. No paralysis. No paresthesia. Psychiatric: No depression. No anxiety. No mood swings. Endocrine: No abnormal blood sugars. PHYSICAL EXAMINATION Gen: This is an 89-year-old female, lying down in bed in no acute distress, currently on nasal cannula. HEENT: Head is atraumatic, normocephalic. Pupils equal, round. Sclerae is anicteric, mucous membranes of the mouth are somewhat dry. NECK: Supple. No JVD. No lymphadenopathy. No thyromegaly, decreased carotid up strokes bilaterally. Chest: decrease breath sounds at the bases with scattered rhonchi, no chest wall tenderness minimal intercostal retractions. Heart: first heart sound is depressed second heart sound is normal there FLORY 2/6 located at the left sternal border, irregularly irregular due to atrial fibrillation. ABDOMEN: Soft, nontender, nondistended, positive bowel sounds, no hepatosplenomegaly. EXTREMITIES: +1 pedal edema. No calf tenderness. Dorsalis pedis +1 bilaterally. NEUROLOGICAL: Patient is awake, alert and oriented x3. Cranial nerves 2 through 12 are grossly intact muscle christopher 4 out of 5 in upper and lower extremities bilaterally., ASSESSMENT AND PLAN 1. Acute GI bleed and acute blood loss anemia. Patient did receive 1 unit of packed of also transfusion, continue Protonix 40 mg IV push every 12 hours, general surgery on standby, no reason for any GI workup at this time, unless she started to have bleeding again. 2. Atrial fibrillation w/RVR, paroxysmal. Patient currently in A. fib. Cardiology consult added. Continue Digoxin 62.5 mcg orally daily, Cardizem CD 360 mg orally daily, Metoprolol 100 mg orally bid. Off Eliquis 3. Acute exacerbation of COPD with a prior history of COVID-19 pneumonia. Continue Solu-Medrol 40 mg IV push every 8 hours, DuoNeb 3 mL nebulization 4 times every day, Symbicort 2 puffs twice daily, oxygen at 3 L nasal cannula adjust for saturation 92-93%, pulmonary consultation appreciated. 4. Hypertension and hypertensive cardiovascular disease. Continue Losartn 25 mg orally daily, Metoprolol 100 mg orally bid. 5. Hyperlipidemia. Continue Lipitor 20 mg orally daily. 6. Chronic diastolic heart failure. Hold Lasix 20 mg orally bid, continue Losartan 25 mg orally daily and Metoprolol 100 mg orally bid. 7. 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 we will continue with above treatment. 8. GERD. we will continue with Protonix 40 mg IV push twice a day. 9. CAD. Continue with Metoprolol 100 mg orally bid, Lipitor 20 mg orally daily and Imdur 15 mg orally daily. 10. Diabetes mellitus type 2. we will continue with Metformin 1000 mg orally with supper and Farxiga 5 mg orally daily, sliding scale insulin. 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 we will hold off Residronate. 12. DVT prophylaxis. SCD and Tedhose. Hold eliquis. 13. GI Prophylaxis. we will continue with protonix 40 mg IVP twice daily DISCHARGE PLAN Home with home care most likely. Objective - Vital Signs Vital signs: Vital Signs Temp 97.5 F L 07/12/21 09:10 Pulse 100 07/12/21 09:10 Resp 16 07/12/21 09:10 BP 105/51 07/12/21 09:10 Pulse Ox 100 07/12/21 09:10 Intake & Output 07/11/21 07/12/21 07/12/21 18:59 06:59 18:59 Intake Total 960 Output Total 0 Balance 960 0 Intake: Oral 960 Output: Urine 0 Stool 0 Urine/Stool Mix 0 Other: Voiding Method Toilet Toilet # Voids 2 0 # Bowel Movements 3 1 0 - Labs CBC & Chem 7: 07/12/21 07:45 07/12/21 07:45 Labs: Abnormal Lab Results - Last 24 Hours (Table) 07/11/21 07/11/21 07/11/21 Range/Units 08:08 11:57 16:37 WBC (3.8-10.6) k/uL RBC (3.80-5.40) m/uL Hgb (11.4-16.0) gm/dL MCHC (31.0-37.0) g/dL Neutrophils # 8.6 H (1.3-7.7) k/uL Lymphocytes # 0.9 L (1.0-4.8) k/uL Sodium (137-145) mmol/L BUN (7-17) mg/dL Glucose (74-99) mg/dL POC Glucose (mg/dL) 195 H 172 H (75-99) mg/dL Calcium (8.4-10.2) mg/dL Total Protein (6.3-8.2) g/dL Albumin (3.5-5.0) g/dL 07/11/21 07/12/21 07/12/21 Range/Units 19:48 06:09 07:45 WBC 10.9 H (3.8-10.6) k/uL RBC 3.68 L (3.80-5.40) m/uL Hgb 10.7 L (11.4-16.0) gm/dL MCHC 30.2 L (31.0-37.0) g/dL Neutrophils # 9.9 H (1.3-7.7) k/uL Lymphocytes # 0.5 L (1.0-4.8) k/uL Sodium (137-145) mmol/L BUN (7-17) mg/dL Glucose (74-99) mg/dL POC Glucose (mg/dL) 197 H 173 H (75-99) mg/dL Calcium (8.4-10.2) mg/dL Total Protein (6.3-8.2) g/dL Albumin (3.5-5.0) g/dL 07/12/21 Range/Units 07:45 WBC (3.8-10.6) k/uL RBC (3.80-5.40) m/uL Hgb (11.4-16.0) gm/dL MCHC (31.0-37.0) g/dL Neutrophils # (1.3-7.7) k/uL Lymphocytes # (1.0-4.8) k/uL Sodium 130 L (137-145) mmol/L BUN 37 H (7-17) mg/dL Glucose 165 H (74-99) mg/dL POC Glucose (mg/dL) (75-99) mg/dL Calcium 7.7 L (8.4-10.2) mg/dL Total Protein 5.0 L (6.3-8.2) g/dL Albumin 3.0 L (3.5-5.0) g/dL
[2021-07-12 11:42] LABS: Glucose,Whole Blood 235 mg/dL (75-99)
--- NOTE | 2021-07-12 12:14 | P.PN ---
Subjective Progress Note Date: 07/12/21 Principal diagnosis: GI bleed Patient doing well today. Hemoglobin did drift from 12.9-10.7 but no active bleeding. Feels well. She has decided against any endoscopy at this time. Objective - Vital Signs Vital signs: Vital Signs Temp 97.5 F L 07/12/21 09:10 Pulse 92 07/12/21 11:31 Resp 16 07/12/21 09:10 BP 105/51 07/12/21 09:10 Pulse Ox 100 07/12/21 09:10 Intake & Output 07/11/21 07/12/21 07/12/21 18:59 06:59 18:59 Intake Total 960 360 Output Total 1 Balance 960 359 Intake: Oral 960 360 Output: Urine 1 Stool 0 Urine/Stool Mix 0 Other: Voiding Method Toilet Toilet Toilet # Voids 2 0 # Bowel Movements 3 1 1 - Exam Abdomen: Soft, nontender, nondistended - Labs CBC & Chem 7: 07/12/21 07:45 07/12/21 07:45 Labs: Abnormal Lab Results - Last 24 Hours (Table) 07/11/21 07/11/21 07/12/21 Range/Units 16:37 19:48 06:09 WBC (3.8-10.6) k/uL RBC (3.80-5.40) m/uL Hgb (11.4-16.0) gm/dL MCHC (31.0-37.0) g/dL Neutrophils # (1.3-7.7) k/uL Lymphocytes # (1.0-4.8) k/uL Sodium (137-145) mmol/L BUN (7-17) mg/dL Glucose (74-99) mg/dL POC Glucose (mg/dL) 172 H 197 H 173 H (75-99) mg/dL Calcium (8.4-10.2) mg/dL Total Protein (6.3-8.2) g/dL Albumin (3.5-5.0) g/dL 07/12/21 07/12/21 07/12/21 Range/Units 07:45 07:45 11:40 WBC 10.9 H (3.8-10.6) k/uL RBC 3.68 L (3.80-5.40) m/uL Hgb 10.7 L (11.4-16.0) gm/dL MCHC 30.2 L (31.0-37.0) g/dL Neutrophils # 9.9 H (1.3-7.7) k/uL Lymphocytes # 0.5 L (1.0-4.8) k/uL Sodium 130 L (137-145) mmol/L BUN 37 H (7-17) mg/dL Glucose 165 H (74-99) mg/dL POC Glucose (mg/dL) 235 H (75-99) mg/dL Calcium 7.7 L (8.4-10.2) mg/dL Total Protein 5.0 L (6.3-8.2) g/dL Albumin 3.0 L (3.5-5.0) g/dL Assessment and Plan (1) Gastrointestinal hemorrhage Narrative/Plan: Patient doing well at this time. Continue monitoring for recurrent bleeding. No endoscopy unless rebleeding noted. Recheck CBC tomorrow. Current Visit: Yes Status: Acute Code(s): K92.2 - GASTROINTESTINAL HEMORRHAGE, UNSPECIFIED SNOMED Code(s): 61970788
--- NOTE | 2021-07-12 12:38 | P.PN ---
Subjective Progress Note Date: 07/12/21 Principal diagnosis: GI bleed. Pulmonary/critical care consult dated 07/10/2021. 89-year-old female, who was seen in the emergency department, early in the morning on July 10. She apparently came in with bloody diarrhea. The patient states that the bleeding started the day prior. She was hoping that it would stop, but when it didn't, she decided to come into the hospital to be evaluated. I spoke to the ER physician about this patient. Apparently they try to transfer the patient to a facility with GI specialist, but nobody would accept her, because of over crowding and lack of beds. The patient is currently in the ER, room 1. She's on 2 L nasal cannula. Her coronavirus testing on this admission was negative although, she apparently was in the hospital April when coronavirus infection. She got a central as well as a unit of packed red blood cells for her GI bleed. She was on a factor X a inhibitor. Currently she is resting comfortably. She is not having any abdominal pain. She does have some mild shortness of breath, but she does have chronic lung disease, and I believe her shortness of breath is pretty much at baseline. White count 10.4, hemog lobin 10.7, hematocrit 34.5, and platelet count 301,000. PT, INR, and PTT are normal. Sodium 135, potassium 5.3, chlorides 97, CO2 28, anion gap 10, BUN 35, with a creatinine of 1. Plasma lactic acid was 6.3. Repeat was 1.5. N- terminal proBNP was 2420. Testing for murdock virus was negative. Chest x-ray apparently shows some fibrotic changes in the lower lobes. Currently, we are not able to review the x-ray ourselves. Progress note dated 07/11/2021. 89-year-old female, seen in the emergency room yesterday, with GI bleed and bloody diarrhea. The patient states that she's doing much better today. The patient's on 2 L nasal O2. She's not receiving any IV fluids. Apparently, one of the surgeons talked her about a possible colonoscopy. She is very nervous to have it given her age. We talked in detail about it. Anyway, the final decision is hers. The patient is not having any additional bleeding from down below. Current laboratory data includes a white count 10.1, hemoglobin 12.9, hematocrit 40.7, and platelet count 227,000. Sodium is 134, potassium 5, chlorides 99, CO2 28, anion gap 7, BUN 31, with creatinine 0.84. Progress note dated 07/12/2021. 89-year-old female, seen in the emergency room a couple days ago, with GI bleed and bloody diarrhea. The patient was offered a colonoscopy, but at this time, has decided not to have it done. She is on 2-3 L nasal cannula. Her saturations are excellent. She denies any respiratory issues. She's not receiving any IV fluids. She's had no further bleeding. Currently, white count 10.9, hemoglobin 10.7, hematocrit 35.4, and platelet count 197,000. Sodium 1:30, potassium 5, chlorides 98, CO2 25, anion gap 7, BUN 37, and creatinine 0.81. Objective - Vital Signs Vital signs: Vital Signs Temp 97.5 F L 07/12/21 09:10 Pulse 92 07/12/21 11:31 Resp 16 07/12/21 09:10 BP 105/51 07/12/21 09:10 Pulse Ox 100 07/12/21 09:10 Intake & Output 07/11/21 07/12/21 07/12/21 18:59 06:59 18:59 Intake Total 960 360 Output Total 1 Balance 960 359 Intake: Oral 960 360 Output: Urine 1 Stool 0 Urine/Stool Mix 0 Other: Voiding Method Toilet Toilet Toilet # Voids 2 0 # Bowel Movements 3 1 1 - Exam No acute distress, oriented 3. Currently on 2-3 L. Saturations are in 100%. HEENT examination is grossly unremarkable. Neck supple. Full range of motion. No adenopathy thyromegaly or neck vein distention. Cardiovascular examination reveals regular rhythm rate. S1-S2 normal. No S3 or S4. No discernible murmur noted. Heart rate about 92 bpm. It is regular. Lungs reveal scattered rhonchi and bibasilar crackles. Breath sounds equal bilaterally. No wheezes. Abdomen soft bowel sounds are heard. No masses or tenderness. Extremities are intact. No cyanosis clubbing or edema. Skin is without rash or lesion. Neurologic examination is brief but nonfocal. - Labs CBC & Chem 7: 07/12/21 07:45 07/12/21 07:45 Labs: Abnormal Lab Results - Last 24 Hours (Table) 07/11/21 07/11/21 07/12/21 Range/Units 16:37 19:48 06:09 WBC (3.8-10.6) k/uL RBC (3.80-5.40) m/uL Hgb (11.4-16.0) gm/dL MCHC (31.0-37.0) g/dL Neutrophils # (1.3-7.7) k/uL Lymphocytes # (1.0-4.8) k/uL Sodium (137-145) mmol/L BUN (7-17) mg/dL Glucose (74-99) mg/dL POC Glucose (mg/dL) 172 H 197 H 173 H (75-99) mg/dL Calcium (8.4-10.2) mg/dL Total Protein (6.3-8.2) g/dL Albumin (3.5-5.0) g/dL 07/12/21 07/12/21 07/12/21 Range/Units 07:45 07:45 11:40 WBC 10.9 H (3.8-10.6) k/uL RBC 3.68 L (3.80-5.40) m/uL Hgb 10.7 L (11.4-16.0) gm/dL MCHC 30.2 L (31.0-37.0) g/dL Neutrophils # 9.9 H (1.3-7.7) k/uL Lymphocytes # 0.5 L (1.0-4.8) k/uL Sodium 130 L (137-145) mmol/L BUN 37 H (7-17) mg/dL Glucose 165 H (74-99) mg/dL POC Glucose (mg/dL) 235 H (75-99) mg/dL Calcium 7.7 L (8.4-10.2) mg/dL Total Protein 5.0 L (6.3-8.2) g/dL Albumin 3.0 L (3.5-5.0) g/dL Assessment and Plan Assessment: Acute gastrointestinal bleed. History of atrial fibrillation. History of heart failure. History of skin cancer. History of COPD. History of gastroesophageal reflux disease. History of hyperlipidemia. History of macular degeneration. Status post permanent pacemaker insertion. History of pulmonary fibrosis. History of hypertension. History of osteoarthritis. Plan: Plan dated 07/10/2021. The patient did receive 1 unit of PRBCs. The patient also receive 4 factor prothrombin complex. One of the surgeons did agree to see the patient from the standpoint of the GI bleed. The patient appears to be relatively stable. We'll continue to follow. We did agree to an ICU bed, but she stabilizes, and doesn't have any additional bleeding, she may be able to be downgraded. We will continue to follow. Her respiratory status is stable. She is on 2 L. Plan dated 07/11/2021. The patient's doing much better. She's had no further bleeding from the gastrointestinal tract. No more bloody diarrhea, or bright red bleeding per rectum. The surgeon talked to her about a possible colonoscopy. She is unsure as to whether or not she should have it. She's concerned because of her age. Anyway, we discussed it in detail. She will give her some additional follow-up talk to her primary care physician about it. From the pulmonary standpoint, the patient's very stable. She's on 2 L nasal cannula and saturations are 100%. Blood pressure is also very stable. We will continue to follow and make recommendations where appropriate. Plan dated 07/12/2021. The patient's doing well. She's had no further GI bleeding. The patient was offered colonoscopy but decided to hold off at this time. She states that she may have been in the future. Currently, she is on a couple liters of oxygen. Saturations are 99-100%. She's not having any pain or discomfort. She's not having any respiratory issues. Hemoglobin is stable. We will continue to follow make recommendations where appropriate. Prognosis is guarded. Time with Patient: Less than 30
[2021-07-12] MEDS: DILTIAZEM CD 180 MG CAP.ER.24H PO SCH (12:47)
[2021-07-12] MEDS: MAGNESIUM OXIDE 400 MG TAB PO SCH (12:48)
[2021-07-12 16:45] LABS: Glucose,Whole Blood 179 mg/dL (75-99)
[2021-07-12] MEDS: metFORMIN 500 MG TAB PO SCH (17:56)
[2021-07-12 20:31] LABS: Glucose,Whole Blood 221 mg/dL (75-99)
[2021-07-12] MEDS: MELATONIN 5 MG TABLET PO SCH (21:02)
[2021-07-12] MEDS: ATORVASTATIN 20 MG TAB PO SCH (21:02)
[2021-07-13 06:14] LABS: Glucose,Whole Blood 186 mg/dL (75-99)
[2021-07-13] MEDS: INSULIN ASPART (NovoLOG) 100 UNIT/ML VIAL SQ SCH ×4 (06:27→21:23)
[2021-07-13] MEDS: SYMBICORT 160-4.5 MCG INHALER INHALATION SCH ×2 (07:14→19:47)
[2021-07-13] MEDS: IPRATROPIUM-ALBUTEROL 3 ML NEB INHALATION SCH ×4 (07:15→19:46)
[2021-07-13] MEDS: METOPROLOL TARTRATE 50 MG TAB PO SCH ×2 (08:05→21:23)
[2021-07-13] MEDS: PANTOPRAZOLE 40 MG/10 ML VIAL IVP SCH ×2 (08:05→21:23)
[2021-07-13] MEDS: DILTIAZEM CD 180 MG CAP.ER.24H PO SCH (08:05)
[2021-07-13] MEDS: methylPREDNISolone SOD SUCCI 40 MG/ML 1 ML VIAL IV SCH (08:05)
[2021-07-13] MEDS: ISOSORBIDE MONONITRATE ER 15 MG TAB PO SCH (08:05)
[2021-07-13] MEDS: CHOLECALCIFEROL 25 MCG (1000 IU) TABLET PO SCH (08:06)
[2021-07-13] MEDS: ASCORBIC ACID 500 MG TAB PO SCH ×2 (08:06→21:23)
[2021-07-13] MEDS: DIGOXIN 125 MCG TAB PO SCH (08:11)
[2021-07-13] MEDS: NON FORMULARY DRUG (Dapagliflozin Propanediol [Farxiga] 5 MG Tablet) PO SCH (08:11)
[2021-07-13 08:30] LABS: Basophils % (A) 0 %; Eosinophils % (A) 0 %; HCT 37.6 % (34.0-46.0); HGB 11.8 gm/dL (11.4-16.0); Hypochromasia Marked; Lymphocytes # (A) 0.6 k/uL (1.0-4.8); Lymphocytes % (A) 7 %; MCH 30.6 pg (25.0-35.0); MCHC 31.5 g/dL (31.0-37.0); MCV 97.2 fL (80.0-100.0); Mean Platelet Volume 7.5; Monocytes # (A) 0.3 k/uL (0-1.0); Monocytes % (A) 3 %; Neutrophils % (A) 89 %; Platelet Count 211 k/uL (150-450); RBC 3.87 m/uL (3.80-5.40); RDW 14.7 % (11.5-15.5)
[2021-07-13 08:45] LABS: Albumin 3.3 g/dL (3.5-5.0); Calcium 8.1 mg/dL (8.4-10.2); Total Bilirubin 0.7 mg/dL (0.2-1.3); Total Protein 5.6 g/dL (6.3-8.2)
[2021-07-13 08:52] LABS: Potassium 4.9 mmol/L (3.5-5.1)
[2021-07-13] MEDS ORDERED: RISEDRONATE SODIUM 35 MG PO SCH (09:00)
--- NOTE | 2021-07-13 10:10 | P.PN ---
Subjective Progress Note Date: 07/13/21 89-year-old female, who was seen in the emergency department, early in the morning on July 10. She apparently came in with bloody diarrhea. The patient states that the bleeding started the day prior. She was hoping that it would stop, but when it didn't, she decided to come into the hospital to be evaluated. I spoke to the ER physician about this patient. Apparently they try to transfer the patient to a facility with GI specialist, but nobody would accept her, because of over crowding and lack of beds. The patient is currently in the ER, room 1. She's on 2 L nasal cannula. Her coronavirus testing on this admission was negative although, she apparently was in the hospital April when coronavirus infection. She got a central as well as a unit of packed red blood cells for her GI bleed. She was on a factor X a inhibitor. Currently she is resting comfortably. She is not having any abdominal pain. She does have some mild shortness of breath, but she does have chronic lung disease, and I believe her shortness of breath is pretty much at baseline. White count 10.4, hemoglobin 10.7, hematocrit 34.5, and platelet count 301,000. PT, INR, and PTT are normal. Sodium 135, potassium 5.3, chlorides 97, CO2 28, anion gap 10, BUN 35, with a creatinine of 1. Plasma lactic acid was 6.3. Repeat was 1.5. N- terminal proBNP was 2420. Testing for murdock virus was negative. Chest x-ray apparently shows some fibrotic changes in the lower lobes. Currently, we are not able to review the x-ray ourselves. Progress note dated 07/11/2021. 89-year-old female, seen in the emergency room yesterday, with GI bleed and bloody diarrhea. The patient states that she's doing much better today. The patient's on 2 L nasal O2. She's not receiving any IV fluids. Apparently, one of the surgeons talked her about a possible colonoscopy. She is very nervous to have it given her age. We talked in detail about it. Anyway, the final decision is hers. The patient is not having any additional bleeding from down below. Current laboratory data includes a white count 10.1, hemoglobin 12.9, hematocrit 40.7, and platelet count 227,000. Sodium is 134, potassium 5, chlorides 99, CO2 28, anion gap 7, BUN 31, with creatinine 0.84. Progress note dated 07/12/2021. 89-year-old female, seen in the emergency room a couple days ago, with GI bleed and bloody diarrhea. The patient was offered a colonoscopy, but at this time, has decided not to have it done. She is on 2-3 L nasal cannula. Her saturations are excellent. She denies any respiratory issues. She's not receiving any IV fluids. She's had no further bleeding. Currently, white count 10.9, hemoglobin 10.7, hematocrit 35.4, and platelet count 197,000. Sodium 1:30, potassium 5, chlorides 98, CO2 25, anion gap 7, BUN 37, and creatinine 0.81. On today's evaluation of 07/13/2021, the patient does not have any active bleeding. The patient was seen by general surgery. The patient declines any endoscopy. Hemoglobin is stable at 11.8. No significant complaints otherwise. She was offered diet. On her blood work, heavy is a 42 with a creatinine of 0.8 and the sodium levels of 1:30. The patient is hemodynamically stable. She is currently on oxygen at 2 L with a pulse ox of 96%. She is afebrile. She is hemodynamically stable. She remains of her bronchodilators. She is on Symbicort as maintenance as the patient is known to have underlying pulmonary fibrosis. She was also placed on IV Solu-Medrol 60 mg every 8 hours. Her chest x-ray showed some fibrotic changes in the lower lobes bilaterally. No significant cough or sputum production. No hemoptysis. No pleurisy. Objective - Vital Signs Vital signs: Vital Signs Temp 98.0 F 07/13/21 08:19 Pulse 79 07/13/21 08:19 Resp 18 07/13/21 08:19 BP 103/65 07/13/21 08:19 Pulse Ox 96 07/13/21 08:19 Intake & Output 07/12/21 07/13/21 07/13/21 18:59 06:59 18:59 Intake Total 1020 480 20 Output Total 1 Balance 1019 480 20 Weight 71.9 kg Intake: IV 20 Invasive Line 1 10 Invasive Line 2 10 Oral 1020 480 Output: Urine 1 Stool 0 Urine/Stool Mix 0 Other: Voiding Method Toilet Toilet Toilet # Voids 2 2 # Bowel Movements 1 - Exam No acute distress, oriented 3. Currently on 2-3 L. Saturations are in 100%. HEENT examination is grossly unremarkable. Neck supple. Full range of motion. No adenopathy thyromegaly or neck vein distention. Cardiovascular examination reveals regular rhythm rate. S1-S2 normal. No S3 or S4. No discernible murmur noted. Heart rate about 92 bpm. It is regular. Lungs reveal scattered rhonchi and bibasilar crackles. Breath sounds equal bilaterally. No wheezes. Abdomen soft bowel sounds are heard. No masses or tenderness. Extremities are intact. No cyanosis clubbing or edema. Skin is without rash or lesion. Neurologic examination is brief but nonfocal. - Labs CBC & Chem 7: 07/13/21 07:39 07/13/21 07:39 Labs: Abnormal Lab Results - Last 24 Hours (Table) 07/12/21 07/12/21 07/12/21 Range/Units 11:40 16:43 20:29 Neutrophils # (1.3-7.7) k/uL Lymphocytes # (1.0-4.8) k/uL Sodium (137-145) mmol/L Chloride (98-107) mmol/L BUN (7-17) mg/dL Glucose (74-99) mg/dL POC Glucose (mg/dL) 235 H 179 H 221 H (75-99) mg/dL Calcium (8.4-10.2) mg/dL Alkaline Phosphatase (38-126) U/L Total Protein (6.3-8.2) g/dL Albumin (3.5-5.0) g/dL 07/13/21 07/13/21 07/13/21 Range/Units 06:13 07:39 07:39 Neutrophils # 8.0 H (1.3-7.7) k/uL Lymphocytes # 0.6 L (1.0-4.8) k/uL Sodium 130 L (137-145) mmol/L Chloride 97 L (98-107) mmol/L BUN 42 H (7-17) mg/dL Glucose 164 H (74-99) mg/dL POC Glucose (mg/dL) 186 H (75-99) mg/dL Calcium 8.1 L (8.4-10.2) mg/dL Alkaline Phosphatase 32 L (38-126) U/L Total Protein 5.6 L (6.3-8.2) g/dL Albumin 3.3 L (3.5-5.0) g/dL Assessment and Plan Plan: 1 Acute gastrointestinal bleed. The patient experienced bright red bloody bowel movement. Hemoglobin is stable at 11.8 and the patient had no significant drop in hemoglobin. She has declined endoscopies. She was seen by general surgery. She the patient is currently on no anticoagulants. She was taken Eliquis at home at a dose of 2.5 mg twice a day for history of a chief fibrillation. She is currently off anticoagulants. 2 History of atrial fibrillation. 3 History of heart failure. 4 History of skin cancer. 5 History of COPD. along with history of pulmonary fibrosis and the patient is a maintained on prednisone 10 mg on a daily basis. Currently she is on IV Solu- Medrol. 6 History of gastroesophageal reflux disease. 7 History of hyperlipidemia. 8 History of macular degeneration. 9 Status post permanent pacemaker insertion. 10 History of pulmonary fibrosis. 11 History of hypertension. 12 History of osteoarthritis. Plan: Discontinue the IV Solu-Medrol Put the patient prednisone 10 mg by mouth daily Keep and coagulations on hold Recent endoscopies. The patient did receive a unit of packed RBC transfusion. The patient is currently on IV Protonix. The plan has been to monitor the patient and consider endoscopy presented recurrent bleeding. The patient is currently off anticoagulants. No active pulmonary or critical care issue at this point in time. Pulmonary critical care services we'll sign off.
--- NOTE | 2021-07-13 11:24 | P.PN ---
<[facility]lesiaDaily - Last Filed: 07/13/21 11:20> Subjective Progress Note Date: 07/13/21 CHIEF COMPLAINT: GI bleed HISTORY OF PRESENT ILLNESS: Patient has had no further signs or symptoms of bleeding. She had a bowel movement yesterday reported as brown. She denies abdominal pain. Denies any nausea or vomiting. Afebrile. Hemoglobin has gone up from 10.7-11.8 WBC 9.0 PHYSICAL EXAM: VITAL SIGNS: Reviewed. GENERAL: Well-developed in no acute distress. HEENT: No sclera icterus. Extraocular movements grossly intact. Moist buccal mucosa. Head is atraumatic, normocephalic. ABDOMEN: Soft. Nondistended. Nontender. NEUROLOGIC: Alert and oriented. Cranial nerves II through XII grossly intact. ASSESSMENT: 1. Acute GI bleed PLAN: -No plans for endoscopy at this time -Patient can be discharged from surgical standpoint -Recommend to resume Eliquis in 2 days Physician Crop Specialist note has been reviewed by physician. Signing provider agrees with the documented findings, assessment, and plan of care. Objective - Vital Signs Vital signs: Vital Signs Temp 98.0 F 07/13/21 08:19 Pulse 82 07/13/21 11:09 Resp 18 07/13/21 08:19 BP 103/65 07/13/21 08:19 Pulse Ox 96 07/13/21 08:19 Intake & Output 07/12/21 07/13/21 07/13/21 18:59 06:59 18:59 Intake Total 1020 480 260 Output Total 1 Balance 1019 480 260 Weight 71.9 kg Intake: IV 20 Invasive Line 1 10 Invasive Line 2 10 Oral 1020 480 240 Output: Urine 1 Stool 0 Urine/Stool Mix 0 Other: Voiding Method Toilet Toilet Toilet # Voids 2 2 # Bowel Movements 1 - Labs CBC & Chem 7: 07/13/21 07:39 07/13/21 07:39 Labs: Abnormal Lab Results - Last 24 Hours (Table) 07/12/21 07/12/21 07/12/21 Range/Units 11:40 16:43 20:29 Neutrophils # (1.3-7.7) k/uL Lymphocytes # (1.0-4.8) k/uL Sodium (137-145) mmol/L Chloride (98-107) mmol/L BUN (7-17) mg/dL Glucose (74-99) mg/dL POC Glucose (mg/dL) 235 H 179 H 221 H (75-99) mg/dL Calcium (8.4-10.2) mg/dL Alkaline Phosphatase (38-126) U/L Total Protein (6.3-8.2) g/dL Albumin (3.5-5.0) g/dL 07/13/21 07/13/21 07/13/21 Range/Units 06:13 07:39 07:39 Neutrophils # 8.0 H (1.3-7.7) k/uL Lymphocytes # 0.6 L (1.0-4.8) k/uL Sodium 130 L (137-145) mmol/L Chloride 97 L (98-107) mmol/L BUN 42 H (7-17) mg/dL Glucose 164 H (74-99) mg/dL POC Glucose (mg/dL) 186 H (75-99) mg/dL Calcium 8.1 L (8.4-10.2) mg/dL Alkaline Phosphatase 32 L (38-126) U/L Total Protein 5.6 L (6.3-8.2) g/dL Albumin 3.3 L (3.5-5.0) g/dL <Curtis Hay - Last Filed: 07/13/21 12:27> Subjective I have personally seen and examined the patient, reviewed the TELEVISION MECHANIC /PAs history, exam and MDM and agree with the assessment and plan as written. Based on total visit time, I have performed more than 50% of the visit. Patient doing well today. No further bleeding. Consider resuming anticoagulation 48-72 hours. Possible discharge per primary service. Objective - Vital Signs Vital signs: Vital Signs Temp 98.0 F 07/13/21 08:19 Pulse 84 07/13/21 11:20 Resp 18 07/13/21 08:19 BP 103/65 07/13/21 08:19 Pulse Ox 96 07/13/21 08:19 Intake & Output 07/12/21 07/13/21 07/13/21 18:59 06:59 18:59 Intake Total 1020 480 260 Output Total 1 Balance 1019 480 260 Weight 71.9 kg Intake: IV 20 Invasive Line 1 10 Invasive Line 2 10 Oral 1020 480 240 Output: Urine 1 Stool 0 Urine/Stool Mix 0 Other: Voiding Method Toilet Toilet Toilet # Voids 2 2 # Bowel Movements 1 - Labs CBC & Chem 7: 07/13/21 07:39 07/13/21 07:39 Labs: Abnormal Lab Results - Last 24 Hours (Table) 07/12/21 07/12/21 07/13/21 Range/Units 16:43 20:29 06:13 Neutrophils # (1.3-7.7) k/uL Lymphocytes # (1.0-4.8) k/uL Sodium (137-145) mmol/L Chloride (98-107) mmol/L BUN (7-17) mg/dL Glucose (74-99) mg/dL POC Glucose (mg/dL) 179 H 221 H 186 H (75-99) mg/dL Calcium (8.4-10.2) mg/dL Alkaline Phosphatase (38-126) U/L Total Protein (6.3-8.2) g/dL Albumin (3.5-5.0) g/dL 07/13/21 07/13/21 07/13/21 Range/Units 07:39 07:39 12:01 Neutrophils # 8.0 H (1.3-7.7) k/uL Lymphocytes # 0.6 L (1.0-4.8) k/uL Sodium 130 L (137-145) mmol/L Chloride 97 L (98-107) mmol/L BUN 42 H (7-17) mg/dL Glucose 164 H (74-99) mg/dL POC Glucose (mg/dL) 262 H (75-99) mg/dL Calcium 8.1 L (8.4-10.2) mg/dL Alkaline Phosphatase 32 L (38-126) U/L Total Protein 5.6 L (6.3-8.2) g/dL Albumin 3.3 L (3.5-5.0) g/dL Assessment and Plan (1) Gastrointestinal hemorrhage Current Visit: Yes Status: Acute Code(s): K92.2 - GASTROINTESTINAL HEMORRHAGE, UNSPECIFIED SNOMED Code(s): 25077909
[2021-07-13] MEDS: MAGNESIUM OXIDE 400 MG TAB PO SCH (11:35)
[2021-07-13] MEDS: CYANOCOBALAMIN 500 MCG TAB PO SCH (11:35)
[2021-07-13] MEDS: CALCIUM CARBONATE 500 MG CHEWABLE PO SCH (11:36)
[2021-07-13 12:06] LABS: Glucose,Whole Blood 262 mg/dL (75-99)
--- NOTE | 2021-07-13 13:32 | P.PN ---
Subjective HISTORY OF PRESENTING ILLNESS This is a pleasant 89-year-old female past medical history significant for chronic persistent atrial fibrillation (on Eliquis), chronic respiratory failure with oxygen therapy, chronic diastolic heart failure, COPD, hypertension, sick sinus syndrome status post dual-chamber pacemaker implantation in 2018, former nicotine dependence. She follows in the office with Dr. Pina. We have been asked to see in consultation for atrial fibrillation with RVR. Patient presented to emergency department with complaints of blood in her stool with diarrhea and was also found to be hypoxic and A. fib with RVR with heart rate running in the 120s and 130s on housing project manager. Patient is now running right around 100-105. She has been resumed on her home medications. She states she had a bowel movement this morning that was brown, large, no blood or tarriness. She is on a clear liquid diet and tolerating. No nausea or vomiting. She denies having any chest pain, lightheadedness or dizziness, baseline shortness of breath. 07/13/21 Patient seen and examined at bedside, no acute distress. She denies any chest pain. She does get shortness of breath with exertion which is chronic for her. Telemetry reviewed patient atrial fibrillation with controlled ventricular rates. Blood pressure is again marginal and losartan discontinued, Imdur decreased. She has been up from bed to the bathroom. She denies having any black stools or bright red bleeding from the rectum. She denies lightheadedness or dizziness. patient has declined endoscopies PHYSICAL EXAMINATION Vitals reviewed CONSTITUTIONAL: No apparent distress. HEENT: Neck Supple. No JVD. CHEST EXAMINATION: Lungs are coarse breath sounds with few scattered expiratory wheezing bilaterally to auscultation. HEART EXAMINATION: Iregular rate and rhythm. S1, S2 heard. Systolic murmur, gallops or rub. ABDOMEN: Soft, nontender. Positive bowel sounds. EXTREMITIES: 2+ peripheral pulses, no lower extremity edema and no calf tenderness. NEUROLOGIC EXAMINATION: Patient is awake, alert and oriented x3. ASSESSMENT Acute GI bleed and acute blood loss anemia Acute on chronic hypoxic respiratory failure COPD exacerbation A. fib with RVR, currently rate controlled Chronic persistent atrial fibrillation Hypertension Sick sinus syndrome status post dual-chamber pacemaker implantation in 2018 Former nicotine dependence PLAN Continue to hold Eliquis due to GI bleed, Per Surgery restart Eliquis in 2 days. Continue home cardiac medications Cardizem 360mg daily, Digoxin 62.5mg, Lopressor 100 mg twice daily-adjust timing due to hypotension Agree with holding Lasix for now. Losartan discontinued due to hypotension Continue statin From a cardiology perspective, patient is stable for discharged. We will sign off at this time. Please reconsult if needed. Patient to follow up with Dr. Pina Nurse Practitioner note has been reviewed, I agree with a documented findings and plan of care. Patient was seen and examined. Objective - Vital Signs Vital signs: Vital Signs Temp 98.0 F 07/13/21 08:19 Pulse 84 07/13/21 11:20 Resp 18 07/13/21 08:19 BP 103/65 07/13/21 08:19 Pulse Ox 96 07/13/21 08:19 Intake & Output 07/12/21 07/13/21 07/13/21 18:59 06:59 18:59 Intake Total 1020 480 260 Output Total 1 Balance 1019 480 260 Weight 71.9 kg Intake: IV 20 Invasive Line 1 10 Invasive Line 2 10 Oral 1020 480 240 Output: Urine 1 Stool 0 Urine/Stool Mix 0 Other: Voiding Method Toilet Toilet Toilet # Voids 2 2 # Bowel Movements 1 - Labs CBC & Chem 7: 07/13/21 07:39 07/13/21 07:39 Labs: Abnormal Lab Results - Last 24 Hours (Table) 07/12/21 07/12/21 07/13/21 Range/Units 16:43 20:29 06:13 Neutrophils # (1.3-7.7) k/uL Lymphocytes # (1.0-4.8) k/uL Sodium (137-145) mmol/L Chloride (98-107) mmol/L BUN (7-17) mg/dL Glucose (74-99) mg/dL POC Glucose (mg/dL) 179 H 221 H 186 H (75-99) mg/dL Calcium (8.4-10.2) mg/dL Alkaline Phosphatase (38-126) U/L Total Protein (6.3-8.2) g/dL Albumin (3.5-5.0) g/dL 07/13/21 07/13/21 07/13/21 Range/Units 07:39 07:39 12:01 Neutrophils # 8.0 H (1.3-7.7) k/uL Lymphocytes # 0.6 L (1.0-4.8) k/uL Sodium 130 L (137-145) mmol/L Chloride 97 L (98-107) mmol/L BUN 42 H (7-17) mg/dL Glucose 164 H (74-99) mg/dL POC Glucose (mg/dL) 262 H (75-99) mg/dL Calcium 8.1 L (8.4-10.2) mg/dL Alkaline Phosphatase 32 L (38-126) U/L Total Protein 5.6 L (6.3-8.2) g/dL Albumin 3.3 L (3.5-5.0) g/dL
[2021-07-13 17:12] LABS: Glucose,Whole Blood 273 mg/dL (75-99)
[2021-07-13] MEDS: metFORMIN 500 MG TAB PO SCH (17:34)
[2021-07-13 20:13] LABS: Glucose,Whole Blood 213 mg/dL (75-99)
[2021-07-13] MEDS: ATORVASTATIN 20 MG TAB PO SCH (21:23)
[2021-07-13] MEDS: MELATONIN 5 MG TABLET PO SCH (21:23)
[2021-07-14] MEDS: INSULIN ASPART (NovoLOG) 100 UNIT/ML VIAL SQ SCH ×2 (06:14→13:36)
[2021-07-14 06:15] LABS: Glucose,Whole Blood 154 mg/dL (75-99)
[2021-07-14] MEDS: IPRATROPIUM-ALBUTEROL 3 ML NEB INHALATION SCH ×2 (07:41→12:00)
[2021-07-14] MEDS: SYMBICORT 160-4.5 MCG INHALER INHALATION SCH (07:41)
[2021-07-14] MEDS ORDERED: predniSONE 10 MG TAB PO SCH (09:00)
[2021-07-14] MEDS: NON FORMULARY DRUG (Dapagliflozin Propanediol [Farxiga] 5 MG Tablet) PO SCH (10:12)
[2021-07-14] MEDS: METOPROLOL TARTRATE 50 MG TAB PO SCH (10:19)
[2021-07-14] MEDS: CHOLECALCIFEROL 25 MCG (1000 IU) TABLET PO SCH (10:19)
[2021-07-14] MEDS: DILTIAZEM CD 180 MG CAP.ER.24H PO SCH (10:19)
[2021-07-14] MEDS: ISOSORBIDE MONONITRATE ER 15 MG TAB PO SCH (10:19)
[2021-07-14] MEDS: MAGNESIUM OXIDE 400 MG TAB PO SCH (10:19)
[2021-07-14] MEDS: PANTOPRAZOLE 40 MG/10 ML VIAL IVP SCH (10:20)
[2021-07-14] MEDS: ASCORBIC ACID 500 MG TAB PO SCH (10:20)
[2021-07-14] MEDS: CYANOCOBALAMIN 500 MCG TAB PO SCH (10:20)
[2021-07-14] MEDS: CALCIUM CARBONATE 500 MG CHEWABLE PO SCH (10:20)
[2021-07-14] MEDS: DIGOXIN 125 MCG TAB PO SCH (10:21)
[2021-07-14 11:35] LABS: Glucose,Whole Blood 142 mg/dL (75-99)
--- NOTE | 2021-07-14 12:19 | P.DS ---
Providers Date of admission: 07/10/21 06:20 Expected date of discharge: 07/14/21 Attending physician: Phoenix Gutiérrez Consults: 07/10/21 06:20 Consult Physician Routine Consulting Provider: Nam Rajan Consult Reason/Comments: gib Do you want consulting provider notified?: Yes Consult Physician Routine Consulting Provider: Curtis Hay Consult Reason/Comments: gib Do you want consulting provider notified?: Yes 07/10/21 13:25 Consult Physician Routine Consulting Provider: Clayton Irizarry Consult Reason/Comments: afib w rvr Do you want consulting provider notified?: Yes Primary care physician: Phoenix Gutiérrez Hospital Course: HISTORY OF PRESENT ILLNESS This is an 89-year old- female patient of mine with a previous medical history significant for hypertension and hypertensive cardiovascular disease, hyperlipidemia, Paroxysmal atrial fibrillation, 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 Was last hospitalized in May for acute exacerbation of diastolic heart failure. She presented to the hospital due to blood in her stool with diarrhea. Her initial blood pressure was found to be 70/37, pulse ox was only 78%. EKG atrial flutter with controlled rate. child monitor his heart rate in the 120s. Hemoglobin 10.7. Potassium 5.3, BUN 35 and creatinine 1. Blood sugar 193. Lactic acid 6.3 with repeat 1.5. Chronic virus PCR not detected. Albumin 2.9. She is status post 500 ml fluid bolus, prothrombin complex concent, and Protonix IV. Chest x-ray reveals pulmonary fibrosis. Mild bilateral lower lobe pulmonary infiltrates probably related to come in a fibrosis and pneumonia slightly worse on the right and improved on the left compared to last exam. No obvious heart failure. GI services are not available at this time and it was requested the patient be transferred to [facility] but [facility], [facility] were unable to take the patient. Patient is seen today in the emergency center waiting for an ICU bed and consult is in place with general surgery, Dr. Hay, less intense this is here to see the patient in the ER. 07/11/21: Patient is sitting up in bed in no apparent distress, she denies any chest pain, she is less short of breath, she has not had any bloody bowel movement, she is currently on clear liquid diet, we'll continue with that for another 24 hours, we'll repeat her hemoglobin today, continue patient current treatment plan, keep off Eliquis for now, hemoglobin from yesterday was stable. 07/12: Patient is sitting at the edge of the bed, I had a long conversation with the patient about the upper and lower endoscopy but she stated that she does not want to go for any procedure at this point in time, we'll continue to monitor the patient very closely her hemoglobin did drop to 10.7, I would advance her diet to full liquid diet, and repeat the CBC tomorrow morning if the hemoglobin continue to be dropping then we will re-evaluate the patient again surgery on standby. 07/14: Patient has had no further episodes of bleeding. Repeat hemoglobin today 11.5. No sign of bleeding, no bloody or tarry stools. Respiratory status is stable. Patient will be discharged home today in stable condition. Plan is to resume eliquis tomorrow. DISCHARGE DIAGNOSES 1. Acute GI bleed and acute blood loss anemia status post transfusion of 2 units of packed RBCs 2. Atrial fibrillation w/RVR, paroxysmal. 3. Acute exacerbation of COPD with a prior history of COVID-19 pneumonia. 4. Hypertension and hypertensive cardiovascular disease. 5. Hyperlipidemia. 6. Chronic diastolic heart failure. 7. 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 8. GERD. 9. CAD. 10. Diabetes mellitus type 2. 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 DISCHARGE PLAN Home with [facility] Greater than 35 minutes was utilized and coordinating patient's discharge. Impression and plan of care have been directed as dictated by the signing physician. Noelle Gilbert nurse practitioner acting as scribe for signing physician. Patient Condition at Discharge: Stable Plan - Discharge Summary Discharge Rx Participant: No New Discharge Prescriptions: Continue Famotidine [Pepcid] 20 mg PO AC-BID Risedronate Sodium [Risedronate Sodium Dr] 35 mg PO MO Omeprazole 20 mg PO DAILY Isosorbide Mononitrate ER [Imdur] 15 mg PO DAILY Digoxin [Digitek] 62.5 mcg PO MOTUWETHFRSA Atorvastatin [Lipitor] 20 mg PO HS Albuterol Inhaler [Ventolin Hfa Inhaler] 1 - 2 puff INHALATION RT-QID PRN PRN Reason: Shortness Of Breath Calcium Carbonate [Calcium] 600 mg PO AC-LUNCH Melatonin 5 mg PO HS Dapagliflozin Propanediol [Farxiga] 5 mg PO DAILY metFORMIN HCL [Glucophage] 1,000 mg PO AC-SUPPER Ipratropium-Albuterol Nebulize [Duoneb 0.5 mg-3 mg/3 ml Soln] 3 ml INHALATION RT-QID Budesonide-Formot 160-4.5 Mcg [Symbicort 160-4.5 Mcg Inhaler] 2 puff INHALATION RT-BID #1 puff Ascorbic Acid [Vitamin C] 500 mg PO BID tab Cholecalciferol [Vitamin D3 (25 Mcg = 1000 Iu)] 50 mcg PO DAILY tablet Furosemide [Lasix] 40 mg PO BID@0900,1600 #60 tab Metoprolol Tartrate [Lopressor] 100 mg PO BID Apixaban [Eliquis] 2.5 mg PO BID #0 Magnesium Oxide [Mag-Ox] 400 mg PO AC-LUNCH Cyanocobalamin (Vitamin B-12) [Vitamin B-12] 1,000 mcg PO AC-LUNCH predniSONE 10 mg PO DAILY #0 Potassium Chloride [Potassium Chloride ER] 10 meq PO AC-BID Diltiazem Cd [Cardizem CD] 360 mg PO DAILY #30 capsule Discontinued Losartan [Cozaar] 25 mg PO DAILY Discharge Medication List Famotidine [Pepcid] 20 mg PO AC-BID 10/23/17 [History] Albuterol Inhaler [Ventolin Hfa Inhaler] 1 - 2 puff INHALATION RT-QID PRN 06/16/20 [History] Atorvastatin [Lipitor] 20 mg PO HS 06/16/20 [History] Digoxin [Digitek] 62.5 mcg PO MOTUWETHFRSA 06/16/20 [History] Isosorbide Mononitrate ER [Imdur] 15 mg PO DAILY 06/16/20 [History] Omeprazole 20 mg PO DAILY 06/16/20 [History] Risedronate Sodium [Risedronate Sodium Dr] 35 mg PO MO 06/16/20 [History] Calcium Carbonate [Calcium] 600 mg PO AC-LUNCH 01/21/21 [History] Cyanocobalamin (Vitamin B-12) [Vitamin B-12] 1,000 mcg PO AC-LUNCH 01/21/21 [History] Dapagliflozin Propanediol [Farxiga] 5 mg PO DAILY 01/21/21 [History] Ipratropium-Albuterol Nebulize [Duoneb 0.5 mg-3 mg/3 ml Soln] 3 ml INHALATION RT-QID 01/21/21 [History] Magnesium Oxide [Mag-Ox] 400 mg PO AC-LUNCH 01/21/21 [History] Melatonin 5 mg PO HS 01/21/21 [History] metFORMIN HCL [Glucophage] 1,000 mg PO AC-SUPPER 01/21/21 [History] Budesonide-Formot 160-4.5 Mcg [Symbicort 160-4.5 Mcg Inhaler] 2 puff INHALATION RT-BID #1 puff 01/24/21 [Rx] Ascorbic Acid [Vitamin C] 500 mg PO BID tab 05/01/21 [Rx] Cholecalciferol [Vitamin D3 (25 Mcg = 1000 Iu)] 50 mcg PO DAILY tablet 05/01/21 [Rx] predniSONE 10 mg PO DAILY #0 05/01/21 [Rx] Potassium Chloride [Potassium Chloride ER] 10 meq PO AC-BID 05/04/21 [History] Diltiazem Cd [Cardizem CD] 360 mg PO DAILY #30 capsule 05/11/21 [Rx] Furosemide [Lasix] 40 mg PO BID@0900,1600 #60 tab 05/11/21 [Rx] Metoprolol Tartrate [Lopressor] 100 mg PO BID 07/10/21 [History] Apixaban [Eliquis] 2.5 mg PO BID #0 07/14/21 [Rx] Follow up Appointment(s)/Referral(s): Phoenix Gutiérrez MD [Primary Care Provider] - 1 Week (unable to get ahold of office; please call to schedule a followup appointment within 1 week. ) Josh Pina MD [STAFF PHYSICIAN] - 07/21/21 3:00 pm ([employer] [facility] [place] [facility]) [facility] Visiting Nurse, [NON-STAFF] - Patient Instructions/Handouts: A-fib (Atrial Fibrillation) (DC), Gastrointestinal Bleeding (DC) Activity/Diet/Wound Care/Special Instructions: Re-start Eliquis on 07/15/21 Discharge Disposition: HOME WITH HOME HEALTH SERVICES
--- NOTE | 2021-07-14 12:28 | P.PN ---
<Daily Parekh - Last Filed: 07/14/21 12:26> Subjective Progress Note Date: 07/14/21 CHIEF COMPLAINT: GI bleed HISTORY OF PRESENT ILLNESS: Patient has had no further signs or symptoms of bleeding. She had a bowel movement yesterday reported as brown. She denies abdominal pain. Denies any nausea or vomiting. Afebrile. No new labs for today. PHYSICAL EXAM: VITAL SIGNS: Reviewed. GENERAL: Well-developed in no acute distress. HEENT: No sclera icterus. Extraocular movements grossly intact. Moist buccal mucosa. Head is atraumatic, normocephalic. ABDOMEN: Soft. Nondistended. Nontender. NEUROLOGIC: Alert and oriented. Cranial nerves II through XII grossly intact. ASSESSMENT: 1. Acute GI bleed resolved PLAN: -No plans for endoscopy at this time -Patient can be discharged from surgical standpoint -Okay to resume Eliquis tomorrow 07/15/2021 Physician Civil Engineering Assistant note has been reviewed by physician. Signing provider agrees with the documented findings, assessment, and plan of care. Objective - Vital Signs Vital signs: Vital Signs Temp 97.8 F 07/14/21 09:45 Pulse 84 07/14/21 12:08 Resp 18 07/14/21 09:45 BP 100/67 07/14/21 09:45 Pulse Ox 97 07/14/21 03:03 Intake & Output 07/13/21 07/14/21 07/14/21 18:59 06:59 18:59 Intake Total 980 480 Output Total 750 Balance 230 480 Intake: IV 20 Invasive Line 1 10 Invasive Line 2 10 Oral 960 480 Output: Urine 750 Other: Voiding Method Toilet Toilet Toilet # Voids 1 1 1 # Bowel Movements 1 - Labs CBC & Chem 7: 07/13/21 07:39 07/13/21 07:39 Labs: Abnormal Lab Results - Last 24 Hours (Table) 07/13/21 07/13/21 07/14/21 Range/Units 16:57 20:10 06:10 POC Glucose (mg/dL) 273 H 213 H 154 H (75-99) mg/dL 07/14/21 Range/Units 11:34 POC Glucose (mg/dL) 142 H (75-99) mg/dL <Curtis Hay - Last Filed: 07/14/21 15:42> Subjective I have personally seen and examined the patient, reviewed the ACCOUNT SUPPORT REP /PAs history, exam and MDM and agree with the assessment and plan as written. Based on total visit time, I have performed more than 50% of the visit. As above. Patient doing well. No further bleeding. May discharge. Resume an ticoagulants tomorrow. Plan endoscopic evaluation if rebleeding noted. Objective - Vital Signs Vital signs: Vital Signs Temp 98 F 07/14/21 13:37 Pulse 110 H 07/14/21 13:37 Resp 16 07/14/21 13:37 BP 116/70 07/14/21 13:37 Pulse Ox 97 07/14/21 03:03 Intake & Output 07/13/21 07/14/21 07/14/21 18:59 06:59 18:59 Intake Total 980 605 Output Total 750 Balance 230 605 Intake: IV 20 Invasive Line 1 10 Invasive Line 2 10 Oral 960 605 Output: Urine 750 Other: Voiding Method Toilet Toilet Toilet # Voids 1 1 1 # Bowel Movements 1 - Labs CBC & Chem 7: 07/14/21 13:07 07/13/21 07:39 Labs: Abnormal Lab Results - Last 24 Hours (Table) 07/13/21 07/13/21 07/14/21 Range/Units 16:57 20:10 06:10 WBC (3.8-10.6) k/uL RBC (3.80-5.40) m/uL POC Glucose (mg/dL) 273 H 213 H 154 H (75-99) mg/dL 07/14/21 07/14/21 Range/Units 11:34 13:07 WBC 12.0 H (3.8-10.6) k/uL RBC 3.72 L (3.80-5.40) m/uL POC Glucose (mg/dL) 142 H (75-99) mg/dL Assessment and Plan (1) Gastrointestinal hemorrhage Status: Acute Code(s): K92.2 - GASTROINTESTINAL HEMORRHAGE, UNSPECIFIED SNOMED Code(s): 42144379
[2021-07-14 13:37] VITALS: BP 116/70; PULSE 110; RESP 16; TEMP 98
[2021-07-14 13:43] LABS: HCT 35.8 % (34.0-46.0); HGB 11.5 gm/dL (11.4-16.0); Hypochromasia Moderate; MCHC 32.3 g/dL (31.0-37.0); Mean Platelet Volume 7.6; Platelet Count 209 k/uL (150-450); RBC 3.72 m/uL (3.80-5.40); RDW 14.5 % (11.5-15.5)
== END 2021-07-14 14:41 | disposition home health service (06) | DRG 377 ==
LOC: EC 02:59 → 2SICU 06:20 → 3SCARD 13:39
PROVIDERS: ADMIT Internal Medicine; ATTEND Internal Medicine
PROC: 30233N1 Transfusion of Nonautologous Red Blood Cells into Peripheral Vein, Percutaneous Approach (ICD-10-PCS; principal; 2021-07-10)
DX: K92.2 Gastrointestinal hemorrhage, unspecified (principal); J18.9 Pneumonia, unspecified organism; J96.21 Acute and chronic respiratory failure with hypoxia; D62 Acute posthemorrhagic anemia; D68.9 Coagulation defect, unspecified; I48.19 Other persistent atrial fibrillation; I48.92 Unspecified atrial flutter; I50.32 Chronic diastolic (congestive) heart failure; J44.0 Chronic obstructive pulmonary disease with (acute) lower respiratory infection; J44.1 Chronic obstructive pulmonary disease with (acute) exacerbation; Z86.16 Personal history of COVID-19; Z20.822 Contact with and (suspected) exposure to COVID-19; E11.9 Type 2 diabetes mellitus without complications; E78.5 Hyperlipidemia, unspecified; I08.3 Combined rheumatic disorders of mitral, aortic and tricuspid valves; I11.0 Hypertensive heart disease with heart failure; I25.10 Atherosclerotic heart disease of native coronary artery without angina pectoris; I27.20 Pulmonary hypertension, unspecified; J84.10 Pulmonary fibrosis, unspecified; I27.29 Other secondary pulmonary hypertension; Z99.81 Dependence on supplemental oxygen; K21.9 Gastro-esophageal reflux disease without esophagitis; M81.8 Other osteoporosis without current pathological fracture; T38.0X5A Adverse effect of glucocorticoids and synthetic analogues, initial encounter; Z79.01 Long term (current) use of anticoagulants; Z79.51 Long term (current) use of inhaled steroids; Z79.52 Long term (current) use of systemic steroids; Z79.84 Long term (current) use of oral hypoglycemic drugs; Z79.899 Other long term (current) drug therapy; Z80.0 Family history of malignant neoplasm of digestive organs; Z82.49 Family history of ischemic heart disease and other diseases of the circulatory system; Z85.828 Personal history of other malignant neoplasm of skin; Z87.01 Personal history of pneumonia (recurrent); Z87.891 Personal history of nicotine dependence; Z95.0 Presence of cardiac pacemaker; Z98.42 Cataract extraction status, left eye; Z98.41 Cataract extraction status, right eye; Z96.1 Presence of intraocular lens; Z88.2 Allergy status to sulfonamides; Z91.013 Allergy to seafood; Z90.89 Acquired absence of other organs; Z98.890 Other specified postprocedural states
CPT/HCPCS: 36415; 71045; 80053; 82728; 83605; 83615; 83735; 83880; 85025; 85027; 85610; 85730; 86140; 86850; 86900; 86901; 86920; 87635; 93005; 94640; 96365; 99291

== ENCOUNTER 2021-07-17 14:05 | Inpatient (IN) | payer MEDICARE ==
[2021-07-17] MEDS ORDERED: IPRATROPIUM-ALBUTEROL 3 ML NEB INHALATION STA (14:13)
[2021-07-17] MEDS ORDERED: methylPREDNISolone SOD SUCCI 125 MG/2 ML VIAL IV STA (14:13)
--- NOTE | 2021-07-17 14:20 | ED ---
General Adult HPI - General Source: patient, RN notes reviewed, old records reviewed <Milind Capps - Last Filed: 07/17/21 15:05> <Joshua Swanson - Last Filed: 07/17/21 17:53> - General Stated complaint: SOB - History of Present Illness Initial comments: This is an 89-year-old female who presents emergency Department complaining of difficulty breathing. Patient states it started about 2 hours ago. Patient states she does have a history of COPD. Per EMS she was wheezing so they gave her breathing treatment on the way in. Patient denies any fever chills or cough. Patient denies chest pain or palpitations. According to EMS he also noted heart rate occasionally went down into the 30s even though the patient had a pacemaker. Patient herself did not realize is her feel symptoms related to this. Patient denies any abdominal pain. Patient denies any vomiting or diarrhea. (Milind Capps) - Related Data Home Medications Medication Instructions Recorded Confirmed Famotidine [Pepcid] 20 mg PO AC-BID 10/23/17 07/17/21 Albuterol Inhaler [Ventolin Hfa 1 - 2 puff INHALATION RT-QID PRN 06/16/20 07/17/21 Inhaler] Atorvastatin [Lipitor] 20 mg PO HS 06/16/20 07/17/21 Digoxin [Digitek] 62.5 mcg PO MOTUWETHFRSA 06/16/20 07/17/21 Isosorbide Mononitrate ER [Imdur] 15 mg PO DAILY 06/16/20 07/17/21 Omeprazole 20 mg PO DAILY 06/16/20 07/17/21 Risedronate Sodium [Risedronate 35 mg PO MO 06/16/20 07/17/[address]] Calcium Carbonate [Calcium] 600 mg PO AC-LUNCH 01/21/21 07/17/21 Cyanocobalamin (Vitamin B-12) 1,000 mcg PO AC-LUNCH 01/21/21 07/17/21 [Vitamin B-12] Dapagliflozin Propanediol [Farxiga] 5 mg PO DAILY 01/21/21 07/17/21 Ipratropium-Albuterol Nebulize 3 ml INHALATION RT-QID 01/21/21 07/17/21 [Duoneb 0.5 mg-3 mg/3 ml Soln] Magnesium Oxide [Mag-Ox] 400 mg PO AC-LUNCH 01/21/21 07/17/21 Melatonin 5 mg PO HS 01/21/21 07/17/21 metFORMIN HCL [Glucophage] 1,000 mg PO AC-SUPPER 01/21/21 07/17/21 Potassium Chloride [Potassium 10 meq PO AC-BID 05/04/21 07/17/21 Chloride ER] Metoprolol Tartrate [Lopressor] 100 mg PO BID 07/10/21 07/17/21 Previous Rx's Medication Instructions Recorded Budesonide-Formot 160-4.5 Mcg 2 puff INHALATION RT-BID #1 puff 01/24/21 [Symbicort 160-4.5 Mcg Inhaler] Ascorbic Acid [Vitamin C] 500 mg PO BID tab 05/01/21 Cholecalciferol [Vitamin D3 (25 50 mcg PO DAILY tablet 05/01/21 Mcg = 1000 Iu)] predniSONE 10 mg PO DAILY #0 05/01/21 Diltiazem Cd [Cardizem CD] 360 mg PO DAILY #30 capsule 05/11/21 Furosemide [Lasix] 40 mg PO BID@0900,1600 #60 tab 05/11/21 Apixaban [Eliquis] 2.5 mg PO BID #0 07/14/21 Allergies Allergy/AdvReac Type Severity Reaction Status Date / Time Sulfa (Sulfonamide Allergy Unknown Verified 07/17/21 15:59 Antibiotics) Childhood shellfish derived [Shellfish] AdvReac Nausea & Verified 07/17/21 15:59 Vomiting & Diarrhea Review of Systems ROS Other: All systems not noted in ROS Statement are negative. <Milind Capps - Last Filed: 07/17/21 15:05> ROS Other: All systems not noted in ROS Statement are negative. <Joshua Swanson - Last Filed: 07/17/21 17:53> ROS Statement: Those systems with pertinent positive or pertinent negative responses have been documented in the HPI. Past Medical History Past Medical History: Atrial Fibrillation, Cancer, Heart Failure, COPD, GERD/Reflux, Hyperlipidemia, Hypertension, Osteoarthritis (OA) Additional Past Medical History / Comment(s): skin cancer on scalp, macular degeneration History of Any Multi-Drug Resistant Organisms: None Reported Past Surgical History: Hernia Repair, Pacemaker, Tonsillectomy Additional Past Surgical History / Comment(s): skin cancer removed from scalp, andrew cataracts Past Anesthesia/Blood Transfusion Reactions: No Reported Reaction Type of Cardiac Device: Permanent Pacemaker Device Placement Date:: 2017 Past Psychological History: No Psychological Hx Reported Smoking Status: Former smoker Past Alcohol Use History: Occasional Past Drug Use History: None Reported - Past Family History Father Family Medical History: Coronary Artery Disease (CAD) Additional Family Medical History / Comment(s): Father at age 91 with history of heart disease. Mother Family Medical History: Cancer Additional Family Medical History / Comment(s): Mother at age 87 from pancreatic cancer. Brother(s) Additional Family Medical History / Comment(s): Patient has 1 brother that at age 93 from liver cancer. Sister(s) Additional Family Medical History / Comment(s): Patient has 2 sisters with no major medical problems. Daughter(s) Additional Family Medical History / Comment(s): Patient has a total of 4 children, 3 daughters and 1 son. One daughter at a young age and a motor vehicle accident. <Milind Capps - Last Filed: 07/17/21 15:05> General Exam <Milnid Capps - Last Filed: 07/17/21 15:05> - General Exam Comments Initial Comments: GENERAL: Patient is well-developed and well-nourished. Patient is nontoxic and well- hydrated and is in mild distress. ENT: Neck is soft and supple. No significant lymphadenopathy is noted. Oropharynx is clear. Moist mucous membranes. Neck has full range of motion without eliciting any pain. EYES: The sclera were anicteric and conjunctiva were pink and moist. Extraocular movements were intact and pupils were equal round and reactive to light. Eyelids were unremarkable. PULMONARY: Patient has diffuse expiratory wheezing. CARDIOVASCULAR: There is a regular rate and rhythm without any murmurs gallops or rubs. ABDOMEN: Soft and nontender with normal bowel sounds. SKIN: Skin is clear with no lesions or rashes and otherwise unremarkable. NEUROLOGIC: Patient is alert and oriented x3. Cranial nerves II through XII are grossly intact. Motor and sensory are also intact. Normal speech, volume and content. Symmetrical smile. MUSCULOSKELETAL: Normal extremities with adequate strength and full range of motion. LYMPHATICS: No significant lymphadenopathy is noted PSYCHIATRIC: Normal psychiatric evaluation. (Milind Capps) Course Vital Signs 07/17/21 07/17/21 07/17/21 14:09 14:38 16:28 Temperature 97.7 F Pulse Rate 99 98 Respiratory 20 24 Rate Blood Pressure 99/60 O2 Sat by Pulse 98 Oximetry 07/17/21 07/17/21 16:37 16:55 Temperature Pulse Rate 99 97 Respiratory 20 Rate Blood Pressure 108/55 O2 Sat by Pulse 100 Oximetry Medical Decision Making - Lab Data Result diagrams: 07/17/21 14:42 <Milind Capps - Last Filed: 07/17/21 15:05> - Lab Data Result diagrams: 07/17/21 14:42 07/17/21 14:42 <Joshua Swanson - Last Filed: 07/17/21 17:53> - Medical Decision Making EKG shows atrial flutter at a rate of 90 bpm QRS is 88 QT interval is 218 QTC is [address] segment elevation or depression. Dr. Swanson be taking over the care of this patient at 3 PM (Milind Capps) Patient is signed out to me pending results of laboratory studies and imaging. Suspected diagnosis is COPD versus heart failure. Cannot rule out pneumonia. Patient was empirically given antibiotics in addition to breathing treatment and steroids for COPD exacerbation. Patient's laboratory studies were remarkable for a stable anemia, hemoglobin of 9.8. She was recently here for a GI bleed, and she denies any recent GI bleeding over the last week. She just restarted eliquis YESTERDAY. Laboratory studies are also remarkable for mildly elevated bicarb of 36. Lactic acid is slightly elevated to 2.3 likely secondary to wheezing. Troponin is negative. BNP is elevated 3000. Covid is negative. Patient was wheezing upon arrival, suspected COPD exacerbation. Chest x-ray showed bilateral a social infiltrates suspicious for what is likely pulmonary edema from CHF exacerbation, the patient is not having any signs of acute upper respiratory illness at this time. She denies cough, fevers, chills. She will be admission and IV Lasix. We'll continue to treat her for her COPD with IV steroids and breathing treatments. I do want admitted to the hospital and she was in agreement this plan. She'll be empirically given an aspirin as well. I spoke with the admitting physician, Dr. Gutiérrze who accepted the patient. He was in agreement this plan. He requested that I consult with cardiology as well as Dr. St pulmonology, which were placed. Patient was therefore admitted in stable condition for her dyspnea, which is suspected to be m ultifactorial from COPD and CHF Vitals remained stable throughout her stay in the ED. (Joshua Swanson) - Lab Data Lab Results 07/17/21 07/17/21 07/17/21 Range/Units 14:42 14:42 14:42 WBC 9.8 (3.8-10.6) k/uL RBC 3.27 L (3.80-5.40) m/uL Hgb 9.8 L D (11.4-16.0) gm/dL Hct 30.9 L (34.0-46.0) % MCV 94.6 (80.0-100.0) fL MCH 30.1 (25.0-35.0) pg MCHC 31.8 (31.0-37.0) g/dL RDW 15.4 (11.5-15.5) % Plt Count 237 (150-450) k/uL MPV 7.5 Neutrophils % 76 % Lymphocytes % 16 % Monocytes % 5 % Eosinophils % 2 % Basophils % 0 % Neutrophils # 7.4 (1.3-7.7) k/uL Lymphocytes # 1.6 (1.0-4.8) k/uL Monocytes # 0.5 (0-1.0) k/uL Eosinophils # 0.2 (0-0.7) k/uL Basophils # 0.0 (0-0.2) k/uL Hypochromasia Slight PT 11.2 (9.0-12.0) sec INR 1.1 (<1.2) APTT 23.1 (22.0-30.0) sec Sodium 136 L (137-145) mmol/L Potassium 3.8 (3.5-5.1) mmol/L Chloride 96 L (98-107) mmol/L Carbon Dioxide 36 H (22-30) mmol/L Anion Gap 4 mmol/L BUN 28 H (7-17) mg/dL Creatinine 0.78 (0.52-1.04) mg/dL Est GFR (CKD-EPI)AfAm 78 (>60 ml/min/1.73 sqM) Est GFR (CKD-EPI)NonAf 68 (>60 ml/min/1.73 sqM) Glucose 146 H (74-99) mg/dL Lactic Ac Sepsis Rflx Plasma Lactic Acid Lion (0.7-2.0) mmol/L Calcium 8.7 (8.4-10.2) mg/dL Magnesium 2.2 (1.6-2.3) mg/dL Total Bilirubin 0.6 (0.2-1.3) mg/dL AST 22 (14-36) U/L ALT 19 (4-34) U/L Alkaline Phosphatase 45 (38-126) U/L Troponin I (0.000-0.034) ng/mL NT-Pro-B Natriuret Pep pg/mL Total Protein 4.9 L (6.3-8.2) g/dL Albumin 2.9 L (3.5-5.0) g/dL Coronavirus (PCR) (Not Detectd) 07/17/21 07/17/21 07/17/21 Range/Units 14:42 14:42 14:42 WBC (3.8-10.6) k/uL RBC (3.80-5.40) m/uL Hgb (11.4-16.0) gm/dL Hct (34.0-46.0) % MCV (80.0-100.0) fL MCH (25.0-35.0) pg MCHC (31.0-37.0) g/dL RDW (11.5-15.5) % Plt Count (150-450) k/uL MPV Neutrophils % % Lymphocytes % % Monocytes % % Eosinophils % % Basophils % % Neutrophils # (1.3-7.7) k/uL Lymphocytes # (1.0-4.8) k/uL Monocytes # (0-1.0) k/uL Eosinophils # (0-0.7) k/uL Basophils # (0-0.2) k/uL Hypochromasia PT (9.0-12.0) sec INR (<1.2) APTT (22.0-30.0) sec Sodium (137-145) mmol/L Potassium (3.5-5.1) mmol/L Chloride (98-107) mmol/L Carbon Dioxide (22-30) mmol/L Anion Gap mmol/L BUN (7-17) mg/dL Creatinine (0.52-1.04) mg/dL Est GFR (CKD-EPI)AfAm (>60 ml/min/1.73 sqM) Est GFR (CKD-EPI)NonAf (>60 ml/min/1.73 sqM) Glucose (74-99) mg/dL Lactic Ac Sepsis Rflx Plasma Lactic Acid Lion 2.3 H* (0.7-2.0) mmol/L Calcium (8.4-10.2) mg/dL Magnesium (1.6-2.3) mg/dL Total Bilirubin (0.2-1.3) mg/dL AST (14-36) U/L ALT (4-34) U/L Alkaline Phosphatase (38-126) U/L Troponin I <0.012 (0.000-0.034) ng/mL NT-Pro-B Natriuret Pep 3050 pg/mL Total Protein (6.3-8.2) g/dL Albumin (3.5-5.0) g/dL Coronavirus (PCR) (Not Detectd) 07/17/21 07/17/21 Range/Units 14:55 15:05 WBC (3.8-10.6) k/uL RBC (3.80-5.40) m/uL Hgb (11.4-16.0) gm/dL Hct (34.0-46.0) % MCV (80.0-100.0) fL MCH (25.0-35.0) pg MCHC (31.0-37.0) g/dL RDW (11.5-15.5) % Plt Count (150-450) k/uL MPV Neutrophils % % Lymphocytes % % Monocytes % % Eosinophils % % Basophils % % Neutrophils # (1.3-7.7) k/uL Lymphocytes # (1.0-4.8) k/uL Monocytes # (0-1.0) k/uL Eosinophils # (0-0.7) k/uL Basophils # (0-0.2) k/uL Hypochromasia PT (9.0-12.0) sec INR (<1.2) APTT (22.0-30.0) sec Sodium (137-145) mmol/L Potassium (3.5-5.1) mmol/L Chloride (98-107) mmol/L Carbon Dioxide (22-30) mmol/L Anion Gap mmol/L BUN (7-17) mg/dL Creatinine (0.52-1.04) mg/dL Est GFR (CKD-EPI)AfAm (>60 ml/min/1.73 sqM) Est GFR (CKD-EPI)NonAf (>60 ml/min/1.73 sqM) Glucose (74-99) mg/dL Lactic Ac Sepsis Rflx Y Plasma Lactic Acid Lion (0.7-2.0) mmol/L Calcium (8.4-10.2) mg/dL Magnesium (1.6-2.3) mg/dL Total Bilirubin (0.2-1.3) mg/dL AST (14-36) U/L ALT (4-34) U/L Alkaline Phosphatase (38-126) U/L Troponin I (0.000-0.034) ng/mL NT-Pro-B Natriuret Pep pg/mL Total Protein (6.3-8.2) g/dL Albumin (3.5-5.0) g/dL Coronavirus (PCR) Not Detected (Not Detectd) Disposition <Milind Capps - Last Filed: 07/17/21 15:05> <Joshua Swanson - Last Filed: 07/17/21 17:53> Clinical Impression: Dyspnea, COPD exacerbation, Heart failure, Atrial flutter by electrocardiogram Disposition: ADMITTED IP TO THIS HOSP Condition: Stable Referrals: Phoenix Gutiérrez MD [Primary Care Provider] - 1-2 days
[2021-07-17 15:02] LABS: Albumin 2.9 g/dL (3.5-5.0); Calcium 8.7 mg/dL (8.4-10.2); Magnesium 2.2 mg/dL (1.6-2.3); Potassium 3.8 mmol/L (3.5-5.1); Total Bilirubin 0.6 mg/dL (0.2-1.3); Total Protein 4.9 g/dL (6.3-8.2)
[2021-07-17 15:07] LABS: INR 1.1 (<1.2); Partial Thromboplastin Time 23.1 sec (22.0-30.0); Prothrombin Time 11.2 sec (9.0-12.0)
[2021-07-17 15:10] LABS: Basophils % (A) 0 %; Eosinophils # (A) 0.2 k/uL (0-0.7); Eosinophils % (A) 2 %; HCT 30.9 % (34.0-46.0); Hypochromasia Slight; Lymphocytes # (A) 1.6 k/uL (1.0-4.8); Lymphocytes % (A) 16 %; MCH 30.1 pg (25.0-35.0); MCHC 31.8 g/dL (31.0-37.0); MCV 94.6 fL (80.0-100.0); Mean Platelet Volume 7.5; Monocytes # (A) 0.5 k/uL (0-1.0); Monocytes % (A) 5 %; Neutrophils # (A) 7.4 k/uL (1.3-7.7); Neutrophils % (A) 76 %; Platelet Count 237 k/uL (150-450); RBC 3.27 m/uL (3.80-5.40); RDW 15.4 % (11.5-15.5); WBC 9.8 k/uL (3.8-10.6)
[2021-07-17 15:12] LABS: HGB 9.8 gm/dL (11.4-16.0)
--- NOTE | 2021-07-17 16:06 | XR ---
EXAMINATION TYPE: XR chest 2V DATE OF EXAM: 07/17/2021 COMPARISON: 07/10/2021 INDICATION: Shortness of breath and weakness TECHNIQUE: Frontal and lateral views of the chest are obtained. FINDINGS: The heart size is normal. The pulmonary vasculature is normal. Is a patchy infiltrate in the left base. Milder infiltrate is scattered within the mid and lower righ t lung field. Findings are worsening interval.. IMPRESSION: 1. Bibasilar infiltrates greater at the left base. Findings are worsening over the interval.
[2021-07-17] MEDS ORDERED: FUROSEMIDE 10 MG/ML 4 ML VIAL IV STA (16:44)
[2021-07-17] MEDS ORDERED: NALOXONE 0.4 MG/ML 1 ML VIAL IV PRN (17:32)
[2021-07-17] MEDS ORDERED: ASPIRIN 81 MG PO STA (17:49)
[2021-07-17] MEDS: methylPREDNISolone SOD SUCCI 40 MG/ML 1 ML VIAL IV SCH (18:22)
[2021-07-17] MEDS: PIPERACILLIN-TAZOBACTAM 3.375 GM in SODIUM CHLORIDE 0.9% 100 ML IVPB SCH (18:48)
[2021-07-17] MEDS ORDERED: IPRATROPIUM-ALBUTEROL 3 ML NEB INHALATION SCH (20:00)
[2021-07-17 20:15] LABS: Basophils % (A) 0 %; Eosinophils # (A) 0.1 k/uL (0-0.7); Eosinophils % (A) 1 %; HCT 29.5 % (34.0-46.0); HGB 9.3 gm/dL (11.4-16.0); Hypochromasia Slight; Lymphocytes # (A) 0.9 k/uL (1.0-4.8); Lymphocytes % (A) 10 %; MCH 29.6 pg (25.0-35.0); MCHC 31.7 g/dL (31.0-37.0); MCV 93.6 fL (80.0-100.0); Mean Platelet Volume 7.6; Monocytes # (A) 0.2 k/uL (0-1.0); Monocytes % (A) 2 %; Neutrophils # (A) 8.2 k/uL (1.3-7.7); Neutrophils % (A) 87 %; Platelet Count 230 k/uL (150-450); RBC 3.15 m/uL (3.80-5.40); RDW 15.1 % (11.5-15.5); WBC 9.4 k/uL (3.8-10.6)
[2021-07-17] MEDS ORDERED: IPRATROPIUM-ALBUTEROL 3 ML NEB INHALATION PRN (20:16)
[2021-07-17] MEDS ORDERED: APIXABAN 2.5 MG TABLET PO SCH (21:00)
[2021-07-17] MEDS: METOPROLOL TARTRATE 50 MG TAB PO SCH (22:20)
[2021-07-17] MEDS: ACETAMINOPHEN TAB 325 MG TAB PO PRN (22:20)
[2021-07-17] MEDS: PANTOPRAZOLE 40 MG/10 ML VIAL IVP SCH (22:23)
[2021-07-17] MEDS: ATORVASTATIN 20 MG TAB PO SCH (22:23)
[2021-07-17] MEDS: LEVOFLOXACIN 250MG-D5W PMX 250 MG in DEXTROSE/WATER 1 50ML.BAG IVPB SCH (22:47)
[2021-07-17] MEDS ORDERED: ADENOSINE 3 MG/ML 2 ML VIAL IVP STA ×2 (22:54→23:03)
[2021-07-17] MEDS ORDERED: METOPROLOL TARTRATE 50 MG TAB PO STA (23:19)
[2021-07-17 23:41] LABS: ABG HCO3 36 mmol/L (21-25); ABG Oxygen Saturation 99.5 % (94-97); ABG PCO2 47 mmHg (35-45); ABG PO2 112 mmHg (83-108); ABG TCO2 38 mmol/L (19-24); Allen Test Performed? Yes
[2021-07-17 23:45] LABS: Basophils % (A) 0 %; Eosinophils # (A) 0.2 k/uL (0-0.7); Eosinophils % (A) 2 %; HCT 27.6 % (34.0-46.0); HGB 8.7 gm/dL (11.4-16.0); Hypochromasia Slight; Lymphocytes # (A) 0.5 k/uL (1.0-4.8); Lymphocytes % (A) 5 %; MCH 29.4 pg (25.0-35.0); MCHC 31.5 g/dL (31.0-37.0); MCV 93.4 fL (80.0-100.0); Mean Platelet Volume 7.6; Monocytes # (A) 0.1 k/uL (0-1.0); Monocytes % (A) 1 %; Neutrophils # (A) 9.6 k/uL (1.3-7.7); Neutrophils % (A) 92 %; Platelet Count 254 k/uL (150-450); RBC 2.96 m/uL (3.80-5.40); RDW 15.1 % (11.5-15.5); WBC 10.5 k/uL (3.8-10.6)
[2021-07-18 00:04] LABS: Albumin 2.8 g/dL (3.5-5.0); Potassium 3.9 mmol/L (3.5-5.1); Total Bilirubin 0.6 mg/dL (0.2-1.3); Total Protein 4.6 g/dL (6.3-8.2)
[2021-07-18] MEDS: PIPERACILLIN-TAZOBACTAM 3.375 GM in SODIUM CHLORIDE 0.9% 100 ML IVPB SCH ×4 (00:48→23:41)
[2021-07-18] MEDS: methylPREDNISolone SOD SUCCI 40 MG/ML 1 ML VIAL IV SCH ×2 (00:48→06:19)
--- NOTE | 2021-07-18 02:46 | P.EN ---
A- team: Indication: Tachycardia Arrived on Scene to find: Patient admitted for CHF and COPD exacerbation with complaints of weakness, developed acute GI bleeding while in the emergency room, subsequently developed tachycardia to 150s for which the A-team was activated Vital signs reviewed: , pulse 152, and SpO2 95% on 2 L nasal cannula oxygen Patient seen and examined at bedside. Patient reports palpitations and jaw pain which started roughly 2 hours ago. She also reports restarting her Eliquis this morning. Of note, the patient was recently admitted one week prior for acute blood loss anemia and was advised to hold her blood thinner which she takes chronically for A. fib. Grossly bloody large bowel movement noted General: [non toxic], [no distress], [appears at stated age] Derm: [warm], [dry] Head: [atraumatic], [normocephalic], [symmetric] Eyes: [EOMI], [no lid lag], [anicteric sclera] Mouth: [no lip lesion], [mucus membranes moist] Cardiovascular: Tachycardia , [no murmur], [positive posterior tibial pulse bilateral], Lungs: [CTA bilateral], [no rhonchi, no rales] , [no accessory muscle use] Abdominal: [soft], [ nontender to palpation], [no guarding], [no appreciable organomegaly] Ext: [no gross muscle atrophy], [no edema], [no contractures] Neuro: [ CN II-XI grossly intact], [no focal neuro deficits] Psych: [Alert], [oriented], [appropriate affect] Assessment/Plan Tachycardia, suspected SVT -6 mg of adenosine IV push was initially given for suspected SVT. The patient quickly reverted back into SVT and the rhythm was not captured. -12 mg of adenosine was subsequently given which revealed a likely atrial flutter underlying rhythm -Laboratory evaluation was ordered -Cardiology consulted Disposition: Recommend transfer to MICU due to active GI bleeding pending bed-availability Notified: Primary team and Cardiology notified by RN A total of 35 minutes of critical care time was spent on the complex care of this patient.
[2021-07-18 05:50] LABS: Basophils % (A) 0 %; Eosinophils # (A) 0.1 k/uL (0-0.7); Eosinophils % (A) 1 %; HCT 29.1 % (34.0-46.0); HGB 9.5 gm/dL (11.4-16.0); Hypochromasia Slight; Lymphocytes # (A) 0.8 k/uL (1.0-4.8); Lymphocytes % (A) 9 %; MCH 30.2 pg (25.0-35.0); MCHC 32.8 g/dL (31.0-37.0); MCV 92.1 fL (80.0-100.0); Mean Platelet Volume 7.7; Monocytes # (A) 0.1 k/uL (0-1.0); Monocytes % (A) 1 %; Neutrophils # (A) 7.5 k/uL (1.3-7.7); Neutrophils % (A) 88 %; Platelet Count 184 k/uL (150-450); Poikilocytosis Slight; RBC 3.16 m/uL (3.80-5.40); WBC 8.5 k/uL (3.8-10.6)
[2021-07-18 06:02] LABS: Calcium 7.6 mg/dL (8.4-10.2); Potassium 3.9 mmol/L (3.5-5.1)
[2021-07-18] MEDS: DIGOXIN 125 MCG TAB PO SCH (07:52)
[2021-07-18] MEDS: IPRATROPIUM-ALBUTEROL 3 ML NEB INHALATION SCH ×4 (08:06→20:34)
--- NOTE | 2021-07-18 08:30 | P.HPIM ---
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 Was recently discharged from [facility] after she was admitted for lower GI bleed and she did receive one units of PRBC and her hemoglobin was stable after she was taken off Eliquis on the discharge she was at 11.5, then she restarted Eliquis on Tuesday and since she was discharged from the hospital she has been complaining of significant polyuria and going to the bathroom all night long, she felt exhausted and not ab le to keep up with her fluid intake, VNA went to see the patient today and she was comlaining of lethargy and increased shortness of breath, she was sent in by EMS to the ER at [facility] for evaluation, BGM was 140, the rest of the labs were relatively stable, her hemoglobin was down to 9.9 and she was having significant expiratory wheezes, CXR did show possible worsening infiltrate, and BNP slightly elevated, nothing drastic , she is already on home O2, but because of the presentation she was started on IV Levaquin 250 mg IVPB daily along with Zosyn and Slu-Medrol 40 mg IVP Q 8 hours, lasix 40 mg IVP Q 12 hours, pulmonary and cardiology consult. While the patient was in the emergency department she did have a large bowel movement that was bloody with about 250 mL of fresh blood, patient apparently is having a lower GI bleed, transfer the patient to the intensive care unit, type and cross and transfuse 1 unit of packed red blood cells, consult general surgery Dr. Hay, monitor the patient's CBC every 6 hours, keep the patient the ER until a bed becomes available in the intensive care unit. REVIEW OF SYSTEMS Constitutional: no fever no chills, no night sweats. No weight change. Reports weakness, Reports fatigue no lethargy. No daytime sleepiness. HEENT: No headache. No blurred vision or double vision, no loss of vision. No loss of Hearing, no ringing in the ears, no dizziness. No nasal drainage or congestion. No epistaxis. No sore throat, no loss of taste Lungs: Reports shortness of breath, minimal cough, no sputum production. Reports wheezing. Cardiovascular: No chest pain,positive for lower extremity edema. positive for palpitations. No paroxysmal nocturnal dyspnea. No orthopnea. No lightheadedness or dizziness. No syncopal episodes. Abdominal: No abdominal pain. No nausea, vomiting. No diarrhea. No constipation. Reports bloody or tarry stools.. No loss of appetite. Genitourinary: No dysuria, increased frequency, urgency. No urinary retention. Musculoskeletal: No myalgias. positive for muscle weakness, no gait dysfunction, no frequent falls. No back pain. No neck pain. Integumentary: No wounds, no lesions. No rash or pruritus. No unusual bruising. No change in hair or nails. Neurologic: No aphasia. No facial droop. No change in mentation. No head injury. No headache. No paralysis. No paresthesia. Psychiatric: No depression. No anxiety. No mood swings. Endocrine: No abnormal blood sugars. MEDICAL HISTORY Hypertension, hypertensive cardiovascular disease Hyperlipidemia Paroxysmal atrial fibrillation Moderate to severe COPD O2 dependence with chronic hypoxic respiratory failure Macular degeneration Gastroesophageal reflux disease Generalized osteoarthritis steroid -induced osteoporosis. chronic diastolic heart failure. Cor pulmonale. Diabetes mellitus type 2 SURGICAL HISTORY Pacemaker implantation in 2018 Tonsillectomy Hernia repair Removal of skin cancer Bilateral cataract removal and intraocular lens implants SOCIAL HISTORY Patient states that she was a smoker less than a pack a day for 20-30 years and quit 10 years ago. She denies any illicit drug use or alcohol use. She currently lives at home alone. FAMILY HISTORY Father at age 91 with history of heart disease. Mother at age 87 from pancreatic cancer. Patient has 1 brother that at age 93 from liver cancer. Patient has 2 sisters with no major medical problems. Patient has a total of 4 children, 3 daughters and 1 son. One daughter at a young age and a motor vehicle accident. PHYSICAL EXAMINATION Gen: This is an 89-year-old female, lying down in bed in acute distress currently on BIPAP. HEENT: Head is atraumatic, normocephalic. Pupils equal, round. Sclerae is anicteric, mucous membranes of the mouth are somewhat dry. NECK: Supple. No JVD. No lymphadenopathy. No thyromegaly, decreased carotid upstrokes bilaterally. Chest: decrease breath sounds at the bases with scattered rhonchi,minimal expiratory wheezes, no chest wall tenderness minimal intercostal retractions. Heart: first heart sound is depressed second heart sound is normal there FLORY 2/6 located at the left sternal border, irregularly irregular due to atrial fibrillation. Tachycardia. ABDOMEN: Soft, nontender, nondistended, positive bowel sounds, no hepatosplenomegaly. EXTREMITIES: +2 pedal edema. No calf tenderness. Dorsalis pedis +1 bilaterally. NEUROLOGICAL: Patient is awake, alert and oriented x3. Cranial nerves 2 through 12 are grossly intact muscle christopher 4 out of 5 in upper and lower extremities bilaterally., ASSESSMENT AND PLAN 1. Acute Hypoxemic respiratory failure due to COPD exacerbation with possible gram negative pneumonia along with diastolic heart failure. we will start Solu- Medrol 40 mg IVP q 8 hours, Levaquin 250 mg IVPB daily along with Zosyn 3.375 gr IVPB Q 8 hours, we will continue with NEB treatment and O2 support, discontinue IV Lasix due to the GI bleed. 2. Lower GI bleed discontinue Eliquis start the patient on IV fluid in the form of normal saline at 75 mL an hour, type and cross and transfuse 1 unit of packed red blood cell, general surgery consultation from Dr. Hay, transfer the patient to the ICU, monitor the CBC every 6 hours. Start the patient on Protonix 40 mg IV push every 12 hours. 2. Atrial fibrillation w/RVR, paroxysmal. Patient currently in A. fib. Continue Digoxin 125 mcg orally daily, Cardizem CD 360 mg orally daily, Metoprolol 100 mg orally bid, discontinue Eliquis 3. Acute exacerbation of COPD with a prior history of COVID-19 pneumonia. Continue Solu-Medrol 40 mg IV push every 8 hours, DuoNeb 3 mL nebulization 4 times every day, Symbicort 2 puffs twice daily, oxygen at 3 L nasal cannula adjust for saturation 92-93%, pulmonary consultation appreciated. 4. Hypertension and hypertensive cardiovascular disease. Continue Metoprolol 100 mg orally bid. 5. Hyperlipidemia. Continue Lipitor 20 mg orally daily. 6. Acute on chronic diastolic heart failure. Metoprolol 100 mg orally bid. 7. 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 we will continue with above treatment. 8. GERD. we will continue with Protonix 40 mg IV push every 12 hours 9. CAD. Continue with Metoprolol 100 mg orally bid, Lipitor 20 mg orally daily and Imdur 15 mg orally daily. 10. Diabetes mellitus type 2. we will hold metformin and Farxiga, we will start sliding scale insulin. 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 we will hold off Residronate. 12. DVT prophylaxis. Hold off Eliquis. 13. GI Prophylaxis. we will continue with protonix 40 mg IV push every 12 hours Patient will be admitted to the hospital for a minimum of 2 night stay. 14. PT and social welfare clerk consult for Sub acute rehab. Past Medical History Past Medical History: Atrial Fibrillation, Cancer, Heart Failure, COPD, GERD/Reflux, Hyperlipidemia, Hypertension, Osteoarthritis (OA) Additional Past Medical History / Comment(s): skin cancer on scalp, macular degeneration History of Any Multi-Drug Resistant Organisms: None Reported Past Surgical History: Hernia Repair, Pacemaker, Tonsillectomy Additional Past Surgical History / Comment(s): skin cancer removed from scalp, andrew cataracts Past Anesthesia/Blood Transfusion Reactions: No Reported Reaction Type of Cardiac Device: Permanent Pacemaker Device Placement Date:: 2017 Past Psychological History: No Psychological Hx Reported Smoking Status: Former smoker Past Alcohol Use History: Occasional Past Drug Use History: None Reported - Past Family History Father Family Medical History: Coronary Artery Disease (CAD) Additional Family Medical History / Comment(s): Father at age 91 with history of heart disease. Mother Family Medical History: Cancer Additional Family Medical History / Comment(s): Mother at age 87 from pancreatic cancer. Brother(s) Additional Family Medical History / Comment(s): Patient has 1 brother that at age 93 from liver cancer. Sister(s) Additional Family Medical History / Comment(s): Patient has 2 sisters with no major medical problems. Daughter(s) Additional Family Medical History / Comment(s): Patient has a total of 4 children, 3 daughters and 1 son. One daughter at a young age and a motor vehicle accident. Medications and Allergies Home Medications Medication Instructions Recorded Confirmed Type Famotidine [Pepcid] 20 mg PO AC-BID 10/23/17 07/17/21 History Albuterol Inhaler [Ventolin Hfa 1 - 2 puff INHALATION RT-QID PRN 06/16/20 07/17/21 History Inhaler] Atorvastatin [Lipitor] 20 mg PO HS 06/16/20 07/17/21 History Digoxin [Digitek] 62.5 mcg PO MOTUWETHFRSA 06/16/20 07/17/21 History Isosorbide Mononitrate ER [Imdur] 15 mg PO DAILY 06/16/20 07/17/21 History Omeprazole 20 mg PO DAILY 06/16/20 07/17/21 History Risedronate Sodium [Risedronate 35 mg PO MO 06/16/20 07/17/[address]] Calcium Carbonate [Calcium] 600 mg PO AC-LUNCH 01/21/21 07/17/21 History Cyanocobalamin (Vitamin B-12) 1,000 mcg PO AC-LUNCH 01/21/21 07/17/21 History [Vitamin B-12] Dapagliflozin Propanediol [Farxiga] 5 mg PO DAILY 01/21/21 07/17/21 History Ipratropium-Albuterol Nebulize 3 ml INHALATION RT-QID 01/21/21 07/17/21 History [Duoneb 0.5 mg-3 mg/3 ml Soln] Magnesium Oxide [Mag-Ox] 400 mg PO AC-LUNCH 01/21/21 07/17/21 History Melatonin 5 mg PO HS 01/21/21 07/17/21 History metFORMIN HCL [Glucophage] 1,000 mg PO AC-SUPPER 01/21/21 07/17/21 History Budesonide-Formot 160-4.5 Mcg 2 puff INHALATION RT-BID #1 puff 01/24/21 07/17/21 Rx [Symbicort 160-4.5 Mcg Inhaler] Ascorbic Acid [Vitamin C] 500 mg PO BID tab 05/01/21 07/17/21 Rx Cholecalciferol [Vitamin D3 (25 50 mcg PO DAILY tablet 05/01/21 07/17/21 Rx Mcg = 1000 Iu)] predniSONE 10 mg PO DAILY #0 05/01/21 07/17/21 Rx Potassium Chloride [Potassium 10 meq PO AC-BID 05/04/21 07/17/21 History Chloride ER] Diltiazem Cd [Cardizem CD] 360 mg PO DAILY #30 capsule 05/11/21 07/17/21 Rx Furosemide [Lasix] 40 mg PO BID@0900,1600 #60 tab 05/11/21 07/17/21 Rx Metoprolol Tartrate [Lopressor] 100 mg PO BID 07/10/21 07/17/21 History Apixaban [Eliquis] 2.5 mg PO BID #0 07/14/21 07/17/21 Rx Allergies Allergy/AdvReac Type Severity Reaction Status Date / Time Sulfa (Sulfonamide Allergy Unknown Verified 07/17/21 15:59 Antibiotics) Childhood shellfish derived [Shellfish] AdvReac Nausea & Verified 07/17/21 15:59 Vomiting & Diarrhea Physical Exam Vitals: Vital Signs Temp Pulse Resp BP Pulse Ox 07/17/21 16:55 97 20 108/55 100 07/17/21 16:37 99 07/17/21 16:28 98 07/17/21 14:38 24 07/17/21 14:09 97.7 F 99 20 99/60 98 Intake and Output 07/17/21 07/17/21 07/17/21 06:59 14:59 22:59 Other: Weight 73.936 kg Results CBC & Chem 7: 07/18/21 05:35 07/18/21 05:35 Labs: Abnormal Lab Results - Last 24 Hours (Table) 07/17/21 07/17/21 07/17/21 Range/Units 14:42 14:42 14:42 RBC 3.27 L (3.80-5.40) m/uL Hgb 9.8 L D (11.4-16.0) gm/dL Hct 30.9 L (34.0-46.0) % Sodium 136 L (137-145) mmol/L Chloride 96 L (98-107) mmol/L Carbon Dioxide 36 H (22-30) mmol/L BUN 28 H (7-17) mg/dL Glucose 146 H (74-99) mg/dL Plasma Lactic Acid Lion 2.3 H* (0.7-2.0) mmol/L Total Protein 4.9 L (6.3-8.2) g/dL Albumin 2.9 L (3.5-5.0) g/dL
[2021-07-18] MEDS ORDERED: FUROSEMIDE 10 MG/ML 4 ML VIAL IV SCH (09:00)
[2021-07-18] MEDS ORDERED: DILTIAZEM CD 180 MG CAP.ER.24H PO SCH (09:00)
[2021-07-18] MEDS ORDERED: PANTOPRAZOLE 40 MG TABLET PO SCH (09:00)
--- NOTE | 2021-07-18 09:48 | P.PN ---
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 Was recently discharged from [facility] after she was admitted for lower GI bleed and she did receive one units of PRBC and her hemoglobin was stable after she was taken off Eliquis on the discharge she was at 11.5, then she restarted Eliquis on Tuesday and since she was discharged from the hospital she has been complaining of significant polyuria and going to the bathroom all night long, she felt exhausted and not able to keep up with her fluid intake, VNA went to see the patient today and she was comlaining of lethargy and increased shortness of breath, she was sent in by EMS to the ER at [facility] for evaluation, BGM was 140, the rest of the labs were relatively stable, her hemoglobin was down to 9.9 and she was having significant expiratory wheezes, CXR did show possible worsening infiltrate, and BNP slightly elevated, nothing drastic , she is already on home O2, but because of the presentation she was started on IV Levaquin 250 mg IVPB daily along with Zosyn and Slu-Medrol 40 mg IVP Q 8 hours, lasix 40 mg IVP Q 12 hours, pulmonary and cardiology consult. While the patient was in the emergency department she did have a large bowel movement that was bloody with about 250 mL of fresh blood, patient apparently is having a lower GI bleed, transfer the patient to the intensive care unit, type and cross and transfuse 1 unit of packed red blood cells, consult general surgery Dr. Hay, monitor the patient's CBC every 6 hours, keep the patient the ER until a bed becomes available in the intensive care unit. 07/18: Patient is laying down in bed she had multiple episodes of bright red blood per rectum since last night, and a team was called and the patient as the patient heart rate 1 250 she did receive adenosine, she did receive metoprolol 50 mg orally and top of her metoprolol that she is taking, she was taken off Eliquis, she was given 1 unit of packed red blood cells, her hemoglobin is stable at 9, patient will be transferred to the ICU, the plan is to have an EGD and colonoscopy hopefully on Tuesday keep the patient on nothing per mouth for now. REVIEW OF SYSTEMS Constitutional: no fever no chills, no night sweats. No weight change. Reports weakness, Reports fatigue no lethargy. No daytime sleepiness. HEENT: No headache. No blurred vision or double vision, no loss of vision. No loss of Hearing, no ringing in the ears, no dizziness. No nasal drainage or congestion. No epistaxis. No sore throat, no loss of taste Lungs: Reports shortness of breath, minimal cough, no sputum production. Reports wheezing. Cardiovascular: No chest pain,positive for lower extremity edema. positive for palpitations. No paroxysmal nocturnal dyspnea. No orthopnea. No lightheadedness or dizziness. No syncopal episodes. Abdominal: No abdominal pain. No nausea, vomiting. No diarrhea. No constipation. Reports bloody or tarry stools.. No loss of appetite. Genitourinary: No dysuria, increased frequency, urgency. No urinary retention. Musculoskeletal: No myalgias. positive for muscle weakness, no gait dysfunction, no frequent falls. No back pain. No neck pain. Integumentary: No wounds, no lesions. No rash or pruritus. No unusual bruising. No change in hair or nails. Neurologic: No aphasia. No facial droop. No change in mentation. No head injury. No headache. No paralysis. No paresthesia. Psychiatric: No depression. No anxiety. No mood swings. Endocrine: No abnormal blood sugars. PHYSICAL EXAMINATION Gen: This is an 89-year-old female, lying down in bed in acute distress currently on BIPAP. HEENT: Head is atraumatic, normocephalic. Pupils equal, round. Sclerae is anicteric, mucous membranes of the mouth are somewhat dry. NECK: Supple. No JVD. No lymphadenopathy. No thyromegaly, decreased carotid upstrokes bilaterally. Chest: decrease breath sounds at the bases with scattered rhonchi,minimal expiratory wheezes, no chest wall tenderness minimal intercostal retractions. Heart: first heart sound is depressed second heart sound is normal there FLORY 2/6 located at the left sternal border, irregularly irregular due to atrial fibrillation. Tachycardia. ABDOMEN: Soft, nontender, nondistended, positive bowel sounds, no hepatosplenomegaly. EXTREMITIES: +2 pedal edema. No calf tenderness. Dorsalis pedis +1 bilaterally. NEUROLOGICAL: Patient is awake, alert and oriented x3. Cranial nerves 2 through 12 are grossly intact muscle christopher 4 out of 5 in upper and lower extremities bilaterally., ASSESSMENT AND PLAN 1. Acute Hypoxemic respiratory failure due to COPD exacerbation with possible gram negative pneumonia along with diastolic heart failure. Discontinue Solu- Medrol Zosyn 3.375 gr IVPB Q 8 hours, we will continue with NEB treatment and O2 support, discontinue IV Lasix due to the GI bleed. 2. Lower GI bleed discontinue Eliquis start the patient on IV fluid in the form of normal saline at 75 mL an hour, type and cross and transfuse 1 unit of packed red blood cell, general surgery consultation from Dr. Hay, transfer the patient to the ICU, monitor the CBC every 6 hours. Start the patient on Protonix 40 mg IV push every 12 hours, patient is in agreement to have an EGD and colonoscopy at this stage. 2. Atrial fibrillation w/RVR, paroxysmal. Patient currently in A. fib. Continue Digoxin 125 mcg orally daily, Cardizem CD 360 mg orally daily, Metoprolol 100 mg orally bid, discontinue Eliquis 3. Acute exacerbation of COPD with a prior history of COVID-19 pneumonia. Discontinue Solu-Medrol, DuoNeb 3 mL nebulization 4 times every day, Symbicort 2 puffs twice daily, oxygen at 3 L nasal cannula adjust for saturation 92-93%, pulmonary consultation appreciated. 4. Hypertension and hypertensive cardiovascular disease. Continue Metoprolol 100 mg orally bid. 5. Hyperlipidemia. Continue Lipitor 20 mg orally daily. 6. Acute on chronic diastolic heart failure. Metoprolol 100 mg orally bid. 7. 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 we will continue with above treatment. 8. GERD. we will continue with Protonix 40 mg IV push every 12 hours 9. CAD. Continue with Metoprolol 100 mg orally bid, Lipitor 20 mg orally daily and Imdur 15 mg orally daily. 10. Diabetes mellitus type 2. we will hold metformin and Farxiga, we will start sliding scale insulin. 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 we will hold off Residronate. 12. DVT prophylaxis. Hold off Eliquis. 13. GI Prophylaxis. we will continue with protonix 40 mg IV push every 12 hours 14. Guarded prognosis. 15. Patient is full code. Objective - Vital Signs Vital signs: Vital Signs Temp 98.1 F 07/18/21 03:37 Pulse 101 H 07/18/21 08:17 Resp 18 07/18/21 07:50 BP 109/59 07/18/21 07:50 Pulse Ox 96 07/18/21 07:50 Intake & Output 07/17/21 07/18/21 07/18/21 18:59 06:59 18:59 Intake Total 310 Balance 310 Weight 73.936 kg 73.936 kg Intake: Blood Product 310 Rc As-1 Unit 310 [id number] Other: Voiding Method Bedpan - Labs CBC & Chem 7: 07/18/21 05:35 07/18/21 05:35 Labs: Abnormal Lab Results - Last 24 Hours (Table) 07/17/21 07/17/21 07/17/21 Range/Units 14:42 14:42 14:42 RBC 3.27 L (3.80-5.40) m/uL Hgb 9.8 L D (11.4-16.0) gm/dL Hct 30.9 L (34.0-46.0) % Neutrophils # (1.3-7.7) k/uL Lymphocytes # (1.0-4.8) k/uL ABG pH (7.35-7.45) ABG pCO2 (35-45) mmHg ABG pO2 (83-108) mmHg ABG HCO3 (21-25) mmol/L ABG Total CO2 (19-24) mmol/L ABG O2 Saturation (94-97) % Sodium 136 L (137-145) mmol/L Chloride 96 L (98-107) mmol/L Carbon Dioxide 36 H (22-30) mmol/L BUN 28 H (7-17) mg/dL Glucose 146 H (74-99) mg/dL Plasma Lactic Acid Lion 2.3 H* (0.7-2.0) mmol/L Calcium (8.4-10.2) mg/dL Total Protein 4.9 L (6.3-8.2) g/dL Albumin 2.9 L (3.5-5.0) g/dL Crossmatch 07/17/21 07/17/21 07/17/21 Range/Units 19:44 23:23 23:23 RBC 3.15 L 2.96 L (3.80-5.40) m/uL Hgb 9.3 L 8.7 L (11.4-16.0) gm/dL Hct 29.5 L 27.6 L (34.0-46.0) % Neutrophils # 8.2 H 9.6 H (1.3-7.7) k/uL Lymphocytes # 0.9 L 0.5 L (1.0-4.8) k/uL ABG pH (7.35-7.45) ABG pCO2 (35-45) mmHg ABG pO2 (83-108) mmHg ABG HCO3 (21-25) mmol/L ABG Total CO2 (19-24) mmol/L ABG O2 Saturation (94-97) % Sodium 133 L (137-145) mmol/L Chloride 93 L (98-107) mmol/L Carbon Dioxide 33 H (22-30) mmol/L BUN 28 H (7-17) mg/dL Glucose 236 H (74-99) mg/dL Plasma Lactic Acid Lion (0.7-2.0) mmol/L Calcium 8.0 L (8.4-10.2) mg/dL Total Protein 4.6 L (6.3-8.2) g/dL Albumin 2.8 L (3.5-5.0) g/dL Crossmatch 07/17/21 07/17/21 07/18/21 Range/Units 23:28 23:39 05:35 RBC 3.16 L (3.80-5.40) m/uL Hgb 9.5 L (11.4-16.0) gm/dL Hct 29.1 L (34.0-46.0) % Neutrophils # (1.3-7.7) k/uL Lymphocytes # 0.8 L (1.0-4.8) k/uL ABG pH 7.50 H (7.35-7.45) ABG pCO2 47 H (35-45) mmHg ABG pO2 112 H (83-108) mmHg ABG HCO3 36 H (21-25) mmol/L ABG Total CO2 38 H (19-24) mmol/L ABG O2 Saturation 99.5 H (94-97) % Sodium (137-145) mmol/L Chloride (98-107) mmol/L Carbon Dioxide (22-30) mmol/L BUN (7-17) mg/dL Glucose (74-99) mg/dL Plasma Lactic Acid Lion (0.7-2.0) mmol/L Calcium (8.4-10.2) mg/dL Total Protein (6.3-8.2) g/dL Albumin (3.5-5.0) g/dL Crossmatch See Detail 07/18/21 Range/Units 05:35 RBC (3.80-5.40) m/uL Hgb (11.4-16.0) gm/dL Hct (34.0-46.0) % Neutrophils # (1.3-7.7) k/uL Lymphocytes # (1.0-4.8) k/uL ABG pH (7.35-7.45) ABG pCO2 (35-45) mmHg ABG pO2 (83-108) mmHg ABG HCO3 (21-25) mmol/L ABG Total CO2 (19-24) mmol/L ABG O2 Saturation (94-97) % Sodium 133 L (137-145) mmol/L Chloride 95 L (98-107) mmol/L Carbon Dioxide 34 H (22-30) mmol/L BUN 30 H (7-17) mg/dL Glucose 175 H (74-99) mg/dL Plasma Lactic Acid Lion (0.7-2.0) mmol/L Calcium 7.6 L (8.4-10.2) mg/dL Total Protein (6.3-8.2) g/dL Albumin (3.5-5.0) g/dL Crossmatch
[2021-07-18] MEDS: SODIUM CHLORIDE 0.9% 1,000 ML IV SCH ×2 (09:49→23:20)
[2021-07-18] MEDS: PANTOPRAZOLE 40 MG/10 ML VIAL IVP SCH ×2 (09:49→20:30)
[2021-07-18] MEDS: METOPROLOL TARTRATE 50 MG TAB PO SCH (09:49)
[2021-07-18] MEDS: ISOSORBIDE MONONITRATE ER 15 MG TAB PO SCH (09:50)
--- NOTE | 2021-07-18 11:05 | P.CRDCN ---
History of Present Illness History of present illness: This is Dr. Jerez dictating a consult on this patient The patient was interviewed and examined IMPRESSION / ASSESSMENT: Atrial fibrillation with RVR Admitted with abdominal pain diarrhea and lower GI bleeding PLAN: At this point I would switch to IV Cardizem since the GI absorption may be reduced May continue oral metoprolol and low-dose digoxin HPI Patient presented with abdominal pain and diarrhea she also is complaining of difficulty breathing We'll also complaining of diarrhea and bloody stools A 12-lead EKG showed atrial fibrillation with RVR Chest x-ray shows bibasilar infiltrates more so on the left side ROS: No fever chills or rigors, no cough, phlegm or expectoration, no nausea, vomiting or diarrhea, no hematuria, dysuria, no musculoskeletal complaints, no strokes or seizures, no skin lesions. EXAMINATION: Resting comfortably in bed. Elevated heart rates Currently in atrial fibrillation Blood pressure 128/63 mmHg Breath sounds are reduced bilaterally Heart sounds are irregular Soft ejection systolic murmur Abdomen is soft and minimally tender in the hypogastric area no guarding REVIEW OF LABS, ECG & MEDICAL DATA Hemoglobin 9.5, white count 8.5, platelet count normal Sodium 133 potassium 3.9 BUN 30 and creatinine 0.9 Normal troponins Past Medical History Past Medical History: Atrial Fibrillation, Cancer, Heart Failure, COPD, GERD/Reflux, Hyperlipidemia, Hypertension, Osteoarthritis (OA) Additional Past Medical History / Comment(s): skin cancer on scalp, macular degeneration History of Any Multi-Drug Resistant Organisms: None Reported Past Surgical History: Hernia Repair, Pacemaker, Tonsillectomy Additional Past Surgical History / Comment(s): skin cancer removed from scalp, andrew cataracts Past Anesthesia/Blood Transfusion Reactions: No Reported Reaction Type of Cardiac Device: Permanent Pacemaker Device Placement Date:: 2017 Past Psychological History: No Psychological Hx Reported Smoking Status: Former smoker Past Alcohol Use History: Occasional Past Drug Use History: None Reported - Past Family History Father Family Medical History: Coronary Artery Disease (CAD) Additional Family Medical History / Comment(s): Father at age 91 with history of heart disease. Mother Family Medical History: Cancer Additional Family Medical History / Comment(s): Mother at age 87 from pancreatic cancer. Brother(s) Additional Family Medical History / Comment(s): Patient has 1 brother that at age 93 from liver cancer. Sister(s) Additional Family Medical History / Comment(s): Patient has 2 sisters with no major medical problems. Daughter(s) Additional Family Medical History / Comment(s): Patient has a total of 4 children, 3 daughters and 1 son. One daughter at a young age and a motor vehicle accident. Medications and Allergies Home Medications Medication Instructions Recorded Confirmed Type Famotidine [Pepcid] 20 mg PO AC-BID 10/23/17 07/17/21 History Albuterol Inhaler [Ventolin Hfa 1 - 2 puff INHALATION RT-QID PRN 06/16/20 07/17/21 History Inhaler] Atorvastatin [Lipitor] 20 mg PO HS 06/16/20 07/17/21 History Digoxin [Digitek] 62.5 mcg PO MOTUWETHFRSA 06/16/20 07/17/21 History Isosorbide Mononitrate ER [Imdur] 15 mg PO DAILY 06/16/20 07/17/21 History Omeprazole 20 mg PO DAILY 06/16/20 07/17/21 History Risedronate Sodium [Risedronate 35 mg PO MO 06/16/20 07/17/[address]] Calcium Carbonate [Calcium] 600 mg PO AC-LUNCH 01/21/21 07/17/21 History Cyanocobalamin (Vitamin B-12) 1,000 mcg PO AC-LUNCH 01/21/21 07/17/21 History [Vitamin B-12] Dapagliflozin Propanediol [Farxiga] 5 mg PO DAILY 01/21/21 07/17/21 History Ipratropium-Albuterol Nebulize 3 ml INHALATION RT-QID 01/21/21 07/17/21 History [Duoneb 0.5 mg-3 mg/3 ml Soln] Magnesium Oxide [Mag-Ox] 400 mg PO AC-LUNCH 01/21/21 07/17/21 History Melatonin 5 mg PO HS 01/21/21 07/17/21 History metFORMIN HCL [Glucophage] 1,000 mg PO AC-SUPPER 01/21/21 07/17/21 History Budesonide-Formot 160-4.5 Mcg 2 puff INHALATION RT-BID #1 puff 01/24/21 07/17/21 Rx [Symbicort 160-4.5 Mcg Inhaler] Ascorbic Acid [Vitamin C] 500 mg PO BID tab 05/01/21 07/17/21 Rx Cholecalciferol [Vitamin D3 (25 50 mcg PO DAILY tablet 05/01/21 07/17/21 Rx Mcg = 1000 Iu)] predniSONE 10 mg PO DAILY #0 05/01/21 07/17/21 Rx Potassium Chloride [Potassium 10 meq PO AC-BID 05/04/21 07/17/21 History Chloride ER] Diltiazem Cd [Cardizem CD] 360 mg PO DAILY #30 capsule 05/11/21 07/17/21 Rx Furosemide [Lasix] 40 mg PO BID@0900,1600 #60 tab 05/11/21 07/17/21 Rx Metoprolol Tartrate [Lopressor] 100 mg PO BID 07/10/21 07/17/21 History Apixaban [Eliquis] 2.5 mg PO BID #0 07/14/21 07/17/21 Rx Allergies Allergy/AdvReac Type Severity Reaction Status Date / Time Sulfa (Sulfonamide Allergy Unknown Verified 07/17/21 15:59 Antibiotics) Childhood shellfish derived [Shellfish] AdvReac Nausea & Verified 07/17/21 15:59 Vomiting & Diarrhea Physical Exam Vitals: Vital Signs Temp Pulse Pulse Resp BP BP Pulse Ox 07/18/21 09:00 108 H 128/63 07/18/21 08:17 101 H 07/18/21 08:06 105 H 07/18/21 07:50 92 18 109/59 96 07/18/21 06:39 95 16 109/53 94 L 07/18/21 05:20 105 H 16 96/47 95 07/18/21 03:38 120 H 16 105/56 95 07/18/21 03:37 98.1 F 120 H 16 105/56 07/18/21 02:36 101 H 20 114/69 95 07/18/21 01:43 97.8 F 124 H 14 99/54 95 07/18/21 01:13 98.1 F 124 H 16 87/55 94 L 07/18/21 01:03 97.7 F 123 H 16 85/43 95 07/18/21 00:37 101 H 20 77/42 95 07/17/21 23:07 144 H 20 113/84 95 07/17/21 21:59 102 H 20 110/65 95 07/17/21 20:21 100 07/17/21 20:13 101 H 07/17/21 20:00 97.4 F L 125 H 20 108/63 96 07/17/21 19:57 110 H 16 95/59 99 07/17/21 18:36 104 H 18 114/60 99 07/17/21 16:55 97 20 108/55 100 07/17/21 16:37 99 07/17/21 16:28 98 07/17/21 14:38 24 07/17/21 14:09 97.7 F 99 20 99/60 98 Intake and Output 07/17/21 07/18/21 07/18/21 22:59 06:59 14:59 Intake Total 310 Balance 310 Intake: Blood Product 310 Rc As-1 Unit 310 [id number] Other: Voiding Method Bedpan Weight 73.936 kg Results 07/18/21 05:35 07/18/21 05:35 Cardiac Enzymes 07/17/21 07/17/21 07/17/21 Range/Units 14:42 14:42 19:44 AST 22 (14-36) U/L Troponin I <0.012 <0.012 (0.000-0.034) ng/mL 07/17/21 07/17/21 Range/Units 22:27 23:23 AST 19 (14-36) U/L Troponin I <0.012 (0.000-0.034) ng/mL Coagulation 07/17/21 Range/Units 14:42 PT 11.2 (9.0-12.0) sec APTT 23.1 (22.0-30.0) sec CBC 07/17/21 07/17/21 07/17/21 Range/Units 14:42 19:44 23:23 WBC 9.8 9.4 10.5 (3.8-10.6) k/uL RBC 3.27 L 3.15 L 2.96 L (3.80-5.40) m/uL Hgb 9.8 L D 9.3 L 8.7 L (11.4-16.0) gm/dL Hct 30.9 L 29.5 L 27.6 L (34.0-46.0) % Plt Count 237 230 254 (150-450) k/uL 07/18/21 Range/Units 05:35 WBC 8.5 (3.8-10.6) k/uL RBC 3.16 L (3.80-5.40) m/uL Hgb 9.5 L (11.4-16.0) gm/dL Hct 29.1 L (34.0-46.0) % Plt Count 184 (150-450) k/uL Comprehensive Metabolic Panel 07/17/21 07/17/21 07/18/21 Range/Units 14:42 23:23 05:35 Sodium 136 L 133 L 133 L (137-145) mmol/L Potassium 3.8 3.9 3.9 (3.5-5.1) mmol/L Chloride 96 L 93 L 95 L (98-107) mmol/L Carbon Dioxide 36 H 33 H 34 H (22-30) mmol/L BUN 28 H 28 H 30 H (7-17) mg/dL Creatinine 0.78 0.89 0.90 (0.52-1.04) mg/dL Glucose 146 H 236 H 175 H (74-99) mg/dL Calcium 8.7 8.0 L 7.6 L (8.4-10.2) mg/dL AST 22 19 (14-36) U/L ALT 19 17 (4-34) U/L Alkaline Phosphatase 45 42 (38-126) U/L Total Protein 4.9 L 4.6 L (6.3-8.2) g/dL Albumin 2.9 L 2.8 L (3.5-5.0) g/dL Current Medications Generic Name Dose Route Start Last Admin Trade Name Jose Angelq PRN Reason Stop Dose Admin Acetaminophen 650 mg 07/17/21 17:32 07/17/21 22:20 Acetaminophen Tab 325 Mg Tab PO 650 mg Q6HR PRN Administration Mild Pain or Fever > 100.5 Albuterol/Ipratropium 3 ml 07/18/21 08:00 07/18/21 08:06 Ipratropium-Albuterol 3 Ml Neb INHALATION 3 ml RT-QID RODRICK Administration Albuterol/Ipratropium 3 ml 07/17/21 20:16 Ipratropium-Albuterol 3 Ml Neb INHALATION RT-Q2H PRN Shortness Of Breath Or Wheezing Atorvastatin Calcium 20 mg 07/17/21 21:00 07/17/21 22:23 Atorvastatin 20 Mg Tab PO 20 mg HS RODRICK Administration Digoxin 62.5 mcg 07/18/21 07:30 07/18/21 07:52 Digoxin 125 Mcg Tab PO 62.5 mcg MOTUWETHFRSA RODRICK Administration Diltiazem HCl 360 mg 07/18/21 09:00 07/18/21 09:50 Diltiazem Cd 180 Mg Cap.Er.24h PO 360 mg DAILY RODRICK Administration Levofloxacin/Dextrose 250 mg/ 50 mls @ 50 mls/hr 07/17/21 19:00 07/17/21 22:47 IV Solution IVPB 50 mls/hr DAILY@1900 RODRICK Administration Piperacillin Sod/Tazobactam 100 mls @ 25 mls/hr 07/17/21 18:00 07/18/21 09:07 Sod 3.375 gm/ Sodium Chloride IVPB 25 mls/hr Q8HR RODRICK Administration Sodium Chloride 1,000 mls @ 75 mls/hr 07/18/21 08:45 07/18/21 09:49 Saline 0.9% IV 75 mls/hr .[id number] RODRICK Administration Isosorbide Mononitrate 15 mg 07/18/21 09:00 07/18/21 09:50 Isosorbide Mononitrate Er 15 Mg Tab PO 15 mg DAILY RODRICK Administration Metoprolol Tartrate 100 mg 07/17/21 21:00 07/18/21 09:49 Metoprolol Tartrate 50 Mg Tab PO 100 mg BID RODRICK Administration Naloxone HCl 0.2 mg 07/17/21 17:32 Naloxone 0.4 Mg/Ml 1 Ml Vial IV Q2M PRN Opioid Reversal Pantoprazole Sodium 40 mg 07/17/21 21:00 07/18/21 09:49 Pantoprazole 40 Mg/10 Ml Vial IVP 40 mg BID RODRICK Administration Intake and Output 07/17/21 07/18/21 07/18/21 22:59 06:59 14:59 Intake Total 310 Balance 310 Intake: Blood Product 310 Rc As-1 Unit 310 [id number] Other: Voiding Method Bedpan Weight 73.936 kg 07/18/21 05:35 07/18/21 05:35
[2021-07-18] MEDS ORDERED: SODIUM CHLORIDE 0.9% 1,000 ML IV ONE ×2 (12:42→15:33)
[2021-07-18] MEDS: DILTIAZEM 125 MG in SODIUM CHLORIDE 0.9% 100 ML IV SCH (12:49)
--- NOTE | 2021-07-18 13:36 | ECHOF ---
Referral Reason:chf MEASUREMENTS -------- HEIGHT: 165.1 cm WEIGHT: 73.9 kg BP: 128/63 IVSd: 1.2 cm (0.6 - 1.1) LVIDd: 3.8 cm (3.9 - 5.3) LVPWd: 1.1 cm (0.6 - 1.1) EDV(Teich): 62 ml IVSs: 1.6 cm LVIDs: 2.4 cm LVPWs: 1.7 cm %IVS Thck: 40 % ESV(Teich): 19 ml EF(Teich): 69 % %FS: 38 % SV(Teich): 42 ml LVOT Diam: 2.0 cm LA Diam: 4.0 cm (2.7 - 3.8) RVIDd: 3.4 cm (< 3.3) LALs A4C: 5.1 cm LAAs A4C: 15.7 cm LAESV A-L A4C: 41 ml LAESV MOD A4C: 37 ml LALs A2C: 6.1 cm LAAs A2C: 13.1 cm LAESV A-L A2C: 24 ml LAESV MOD A2C: 25 ml LAESV(A-L): 34 ml LAESV Index (A-L): 18.90 ml/m Ao Diam: 2.7 cm (2.0 - 3.7) AV Cusp: 1.2 cm (1.5 - 2.6) EPSS: 0.2 cm MV DecT: 149 ms MV PHT: 21 ms MVA By PHT: 10.3 cm LVOT Vmax: 0.73 m/s LVOT maxP.16 mmHg AV Vmax: 1.89 m/s AV maxP.83 mmHg MARCOS Vmax, Pt: 1.2 cm AV Vmax: 2.41 m/s AV Vmean: 1.68 m/s AV maxP.32 mmHg AV meanP.74 mmHg AV Env.Ti: 270 ms AV VTI: 45.4 cm MARCOS Vmax, Pt: 1.0 cm AR Vmax: 4.03 m/s AR maxP.96 mmHg AR PHT: 442 ms AR Dec Time: 1523 ms AR Dec [place]: 2.6 m/s TR Vmax: 2.73 m/s TR maxP.73 mmHg RAP: 5.00 mmHg RVSP: 34.73 mmHg MV EF SLOPE: 103.59 mm/s (70 - 150) MV EXCURSION: 16.92 mm (> 18.000) FINDINGS -------- Atrial fibrillation. This was a technically adequate study. The left ventricular size is normal. There is borderline concentric left ventricular hypertrophy. Overall left ventricular systolic function is normal with, an EF between 55 - 60 %. The right ventricle is mildly enlarged. The left atrium is mildly dilated. The right atrium is normal in size. Interatrial and interventricular septum intact. There is moderate aortic valve sclerosis. There is mild aortic regurgitation. There is moderate a ortic stenosis present. Peak/mean gradient across the Aortic Valve is 23.32mmHg / 12.74mmHg. The mitral valve leaflets are mildly thickened. Mild mitral annular calcification present. Mild m itral regurgitation is present. Mild tricuspid regurgitation present. There is mild pulmonary hypertension. The right ventricular systolic pressure, as measured by Doppler, is 34.73mmHg. Trace/mild (physiologic) pulmonic regurgitation. The aortic root size is normal. Normal inferior vena cava with normal inspiratory collapse consistent with estimated right atrial pre ssure of 5 mmHg. There is no pericardial effusion. CONCLUSIONS -------- 1. The left ventricular size is normal. 2. There is borderline concentric left ventricular hypertrophy. 3. Overall left ventricular systolic function is normal with, an EF between 55 - 60 %. 4. The right ventricle is mildly enlarged. 5. The left atrium is mildly dilated. 6. There is moderate aortic valve sclerosis. 7. There is mild aortic regurgitation. 8. There is moderate aortic stenosis present. 9. Peak/mean gradient across the Aortic Valve is 23.32mmHg / 12.74mmHg. 10. The mitral valve leaflets are mildly thickened. 11. Mild mitral annular calcification present. 12. Mild mitral regurgitation is present. 13. Mild tricuspid regurgitation present. 14. There is mild pulmonary hypertension. 15. The right ventricular systolic pressure, as measured by Doppler, is 34.73mmHg. 16. Trace/mild (physiologic) pulmonic regurgitation. 17. There is no pericardial effusion. [employer] [employer] OPERATOR: Evelyne Byrd RD
--- NOTE | 2021-07-18 14:20 | P.CNPUL ---
History of Present Illness Consult date: 07/18/21 Requesting physician: Héctor Gutiérrez Reason for consult: dyspnea, other (Critical care management) Chief complaint: Shortness of breath History of present illness: This is a very pleasant 89-year-old female patient who follows with Dr. Gutiérrez for primary care services, has a past medical history of chronic atrial fibrillation and anticoagulated with Eliquis, chronic congestive heart failure w ith diastolic dysfunction, history of COPD on home oxygen, and maintenance dose prednisone, former history of smoking, currently in remission, benign essential hypertension, dual-chamber permanent pacemaker for history of sinus pauses, previously hospitalized with COVID-19 pneumonia and acute exacerbation of COPD and CHF. He was hospitalized again after that for GI bleeding that was limited and did not require any intervention. She was discharged home 07/14/2021 again on her Eliquis. She came back to the emergency room yesterday with complaints of increasing shortness of breath and the plan was to admit her to the regular medical floor for COPD/CHF exacerbation. She was found to be in atrial flutter on EKG. Last evening however while still in the emergency department she developed a dark bloody stool with clots. Vital signs remained stable. Her admission was to be changed to the intensive care unit. We are consulted for the same. She is seen today in the emergency department. She is awake and alert in no acute distress. No further episodes of bleeding since last evening. Chest x-ray revealed bibasilar infiltrates greater on the left. He is maintaining O2 saturations up to 100% on 2 L/m per nasal cannula. He's been afebrile. Blood pressure 99/70. Her hemoglobin dropped from 9.3-8.7 and she was given 1 unit of packed red blood cells. Current hemoglobin 9.5. White count 8.5. Platelets 184. Sodium 133. Potassium 3.9. Creatinine 0.90. Troponins negative 2. Arterial blood gases on 2 L nasal cannula were found to have a pH of 7.50. PCO2 47, P O2 112. She's been initiated on Zosyn, Levaquin. Initiated on a Cardizem drip at 10 mg per hour. Remains on bronchodilators. 0.9 normal saline at 75 ML's per hour. She received 1 L of fluid resuscitation. Review of Systems REVIEW OF SYSTEMS: CONSTITUTIONAL: Denies any recent significant weight loss or weight gain. EYES: Denies change in vision. EARS, NOSE, MOUTH, THROAT: Denies headaches, denies sore throat. CARDIOVASCULAR: Denies chest pain, palpitations or syncopal episodes. RESPIRATORY: Positive for shortness of breath, cough, congestion no hemoptysis. GASTROINTESTINAL: Positive for one bloody bowel movement with clots GENITOURINARY: Denies hematuria, denies infections. MUSKULOSKELETAL: Denies pain, denies swelling. INTEGUMENTARY: Denies rash, denies eczema. NEUROLOGICAL: Denies recent memory loss, no recent seizure activity. PSYCHIATRIC: Denies anxiety, denies depression. HEMATOLOGIC/LYMPHATIC: Denies anemia, denies enlarged lymph nodes. Past Medical History Past Medical History: Atrial Fibrillation, Cancer, Heart Failure, COPD, GERD/Reflux, Hyperlipidemia, Hypertension, Osteoarthritis (OA) Additional Past Medical History / Comment(s): skin cancer on scalp, macular degeneration History of Any Multi-Drug Resistant Organisms: None Reported Past Surgical History: Hernia Repair, Pacemaker, Tonsillectomy Additional Past Surgical History / Comment(s): skin cancer removed from scalp, andrew cataracts Past Anesthesia/Blood Transfusion Reactions: No Reported Reaction Type of Cardiac Device: Permanent Pacemaker Device Placement Date:: 2017 Past Psychological History: No Psychological Hx Reported Smoking Status: Former smoker Past Alcohol Use History: Occasional Past Drug Use History: None Reported - Past Family History Father Family Medical History: Coronary Artery Disease (CAD) Additional Family Medical History / Comment(s): Father at age 91 with histo ry of heart disease. Mother Family Medical History: Cancer Additional Family Medical History / Comment(s): Mother at age 87 from pancreatic cancer. Brother(s) Additional Family Medical History / Comment(s): Patient has 1 brother that at age 93 from liver cancer. Sister(s) Additional Family Medical History / Comment(s): Patient has 2 sisters with no major medical problems. Daughter(s) Additional Family Medical History / Comment(s): Patient has a total of 4 children, 3 daughters and 1 son. One daughter at a young age and a motor vehicle accident. Medications and Allergies Home Medications Medication Instructions Recorded Confirmed Type Famotidine [Pepcid] 20 mg PO AC-BID 10/23/17 07/17/21 History Albuterol Inhaler [Ventolin Hfa 1 - 2 puff INHALATION RT-QID PRN 06/16/2007/04 History Inhaler] Atorvastatin [Lipitor] 20 mg PO HS 06/16/20 07/17/21 History Digoxin [Digitek] 62.5 mcg PO MOTUWETHFRSA 06/16/20 07/17/21 History Isosorbide Mononitrate ER [Imdur] 15 mg PO DAILY 06/16/20 07/17/21 History Omeprazole 20 mg PO DAILY 06/16/20 07/17/21 History Risedronate Sodium [Risedronate 35 mg PO MO 06/16/20 07/17/[address]] Calcium Carbonate [Calcium] 600 mg PO AC-LUNCH 01/21/21 07/17/21 History Cyanocobalamin (Vitamin B-12) 1,000 mcg PO AC-LUNCH 01/21/21 07/17/21 History [Vitamin B-12] Dapagliflozin Propanediol [Farxiga] 5 mg PO DAILY 01/21/21 07/17/21 History Ipratropium-Albuterol Nebulize 3 ml INHALATION RT-QID 01/21/21 07/17/21 History [Duoneb 0.5 mg-3 mg/3 ml Soln] Magnesium Oxide [Mag-Ox] 400 mg PO AC-LUNCH 01/21/21 07/17/21 History Melatonin 5 mg PO HS 01/21/21 07/17/21 History metFORMIN HCL [Glucophage] 1,000 mg PO AC-SUPPER 01/21/21 07/17/21 History Budesonide-Formot 160-4.5 Mcg 2 puff INHALATION RT-BID #1 puff 01/24/21 07/17/21 Rx [Symbicort 160-4.5 Mcg Inhaler] Ascorbic Acid [Vitamin C] 500 mg PO BID tab 05/01/21 07/17/21 Rx Cholecalciferol [Vitamin D3 (25 50 mcg PO DAILY tablet 05/01/21 07/17/21 Rx Mcg = 1000 Iu)] predniSONE 10 mg PO DAILY #0 05/01/21 07/17/21 Rx Potassium Chloride [Potassium 10 meq PO AC-BID 05/04/21 07/17/21 History Chloride ER] Diltiazem Cd [Cardizem CD] 360 mg PO DAILY #30 capsule 05/11/21 07/17/21 Rx Furosemide [Lasix] 40 mg PO BID@0900,1600 #60 tab 05/11/21 07/17/21 Rx Metoprolol Tartrate [Lopressor] 100 mg PO BID 07/10/21 07/17/21 History Apixaban [Eliquis] 2.5 mg PO BID #0 07/14/21 07/17/21 Rx Allergies Allergy/AdvReac Type Severity Reaction Status Date / Time Sulfa (Sulfonamide Allergy Unknown Verified 07/17/21 15:59 Antibiotics) Childhood shellfish derived [Shellfish] AdvReac Nausea & Verified 07/17/21 15:59 Vomiting & Diarrhea Physical Exam Vitals: Vital Signs Temp Pulse Pulse Resp BP BP Pulse Ox 07/18/21 13:39 99/70 07/18/21 12:45 96 18 78/58 07/18/21 12:34 93 16 87/48 100 07/18/21 12:02 92 07/18/21 11:50 98 16 87/47 100 07/18/21 11:30 104 H 16 68/48 100 07/18/21 11:00 105 H 16 113/60 100 07/18/21 09:00 108 H 128/63 07/18/21 08:17 101 H 07/18/21 08:06 105 H 07/18/21 07:50 92 18 109/59 96 07/18/21 06:39 95 16 109/53 94 L 07/18/21 05:20 105 H 16 96/47 95 07/18/21 03:38 120 H 16 105/56 95 07/18/21 03:37 98.1 F 120 H 16 105/56 07/18/21 02:36 101 H 20 114/69 95 07/18/21 01:43 97.8 F 124 H 14 99/54 95 07/18/21 01:13 98.1 F 124 H 16 87/55 94 L 07/18/21 01:03 97.7 F 123 H 16 85/43 95 07/18/21 00:37 101 H 20 77/42 95 07/17/21 23:07 144 H 20 113/84 95 07/17/21 21:59 102 H 20 110/65 95 07/17/21 20:21 100 07/17/21 20:13 101 H 07/17/21 20:00 97.4 F L 125 H 20 108/63 96 07/17/21 19:57 110 H 16 95/59 99 07/17/21 18:36 104 H 18 114/60 99 07/17/21 16:55 97 20 108/55 100 07/17/21 16:37 99 07/17/21 16:28 98 07/17/21 14:38 24 07/17/21 14:09 97.7 F 99 20 99/60 98 Intake and Output 07/17/21 07/18/21 07/18/21 22:59 06:59 14:59 Intake Total 310 Balance 310 Intake: Blood Product 310 Rc As-1 Unit 310 [id number] Other: Voiding Method Bedpan Weight 73.936 kg GENERAL EXAM: Alert, very pleasant 89-year-old female patient, on 2 L nasal cannula, comfortable in no apparent distress. HEAD: Normocephalic. EYES: Normal reaction of pupils, equal size. NOSE: Clear with pink turbinates. THROAT: No erythema or exudates. NECK: No masses, no JVD. CHEST: No chest wall deformity. LUNGS: Equal air entry with crackles in the bilateral bases CVS: S1 and S2 normal with no audible murmur, regular rhythm. ABDOMEN: No hepatosplenomegaly, normal bowel sounds, no guarding or rigidity. SPINE: No scoliosis or deformity SKIN: No rashes CENTRAL NERVOUS SYSTEM: No focal deficits, tone is normal in all 4 extremities. EXTREMITIES: There is no peripheral edema. No clubbing, no cyanosis. Peripheral pulses are intact. Results - Laboratory Findings CBC and BMP: 07/18/21 05:35 07/18/21 05:35 ABG ABG pH 7.50 (7.35-7.45) H 07/17/21 23:39 ABG pCO2 47 mmHg (35-45) H 07/17/21 23:39 ABG pO2 112 mmHg (83-108) H 07/17/21 23:39 ABG O2 Saturation 99.5 % (94-97) H 07/17/21 23:39 PT/INR, D-dimer PT 11.2 sec (9.0-12.0) 07/17/21 14:42 INR 1.1 (<1.2) 07/17/21 14:42 Abnormal lab findings: Abnormal Labs 07/17/21 07/17/21 07/17/21 14:42 14:42 14:42 RBC 3.27 L Hgb 9.8 L D Hct 30.9 L Neutrophils # Lymphocytes # ABG pH ABG pCO2 ABG pO2 ABG HCO3 ABG Total CO2 ABG O2 Saturation Sodium 136 L Chloride 96 L Carbon Dioxide 36 H BUN 28 H Glucose 146 H Plasma Lactic Acid Lion 2.3 H* Calcium Total Protein 4.9 L Albumin 2.9 L Crossmatch 07/17/21 07/17/21 07/17/21 19:44 23:23 23:23 RBC 3.15 L 2.96 L Hgb 9.3 L 8.7 L Hct 29.5 L 27.6 L Neutrophils # 8.2 H 9.6 H Lymphocytes # 0.9 L 0.5 L ABG pH ABG pCO2 ABG pO2 ABG HCO3 ABG Total CO2 ABG O2 Saturation Sodium 133 L Chloride 93 L Carbon Dioxide 33 H BUN 28 H Glucose 236 H Plasma Lactic Acid Lion Calcium 8.0 L Total Protein 4.6 L Albumin 2.8 L Crossmatch 07/17/21 07/17/21 07/18/21 23:28 23:39 05:35 RBC 3.16 L Hgb 9.5 L Hct 29.1 L Neutrophils # Lymphocytes # 0.8 L ABG pH 7.50 H ABG pCO2 47 H ABG pO2 112 H ABG HCO3 36 H ABG Total CO2 38 H ABG O2 Saturation 99.5 H Sodium Chloride Carbon Dioxide BUN Glucose Plasma Lactic Acid Lion Calcium Total Protein Albumin Crossmatch See Detail 07/18/21 05:35 RBC Hgb Hct Neutrophils # Lymphocytes # ABG pH ABG pCO2 ABG pO2 ABG HCO3 ABG Total CO2 ABG O2 Saturation Sodium 133 L Chloride 95 L Carbon Dioxide 34 H BUN 30 H Glucose 175 H Plasma Lactic Acid Lion Calcium 7.6 L Total Protein Albumin Crossmatch - Diagnostic Findings Chest x-ray: image reviewed Assessment and Plan Assessment: 1 Acute on chronic hypoxemic respiratory failure, multifactorial, in a patient found to be in atrial flutter, diastolic congestive heart failure, COPD exa cerbation, possible healthcare acquired pneumonia, previous COVID-19 infection. Stable and on 2 L nasal cannula 2 GI bleed with dark with a bowel movement with clots last evening. Hemoglobin 8.7 and received 1 unit of packed red blood cells with a current hemoglobin of 9.5 3 Atrial flutter with varying rate 4 History of atrial fibrillation with a rapid ventricular response, anticoagulated with Eliquis in the outpatient setting 5 Acute on chronic diastolic congestive heart failure with preserved left ventricular systolic function ejection fraction 55-60% 6 Advanced chronic obstructive pulmonary disease, oxygen dependent and steroid dependent 7 History of hypertension 8 History of sick sinus syndrome status post dual-chamber pacemaker implantation Plan: The patient was seen and evaluated No further GI bleeding, hemoglobin 9.5 Admit to regular medical floor with telemetry Give 1 L of fluid resuscitation Continue to monitor hemoglobin Continue Zosyn and Levaquin Obtain a pro-calcitonin, proBNP Continue bronchodilators Remains on Protonix 40 mg IV twice a day May need to undergo endoscopy Continue to hold Eliquis for now We will continue to follow and make further recommendations based on her clinical status I, the cosigning physician, performed a history & physical examination of the patient. Lungs sounds with crackles in the bilateral bases. Maintaining good O2 saturations in the 90s on 2 L/m per nasal cannula. I discussed the assessment and plan of care with my nurse practitioner, Yessica Doe. I attest to the above consultation as dictated by her. Time with Patient: Greater than 30
[2021-07-18] MEDS ORDERED: methylPREDNISolone SOD SUCCI 40 MG/ML 1 ML VIAL IV SCH (16:00)
[2021-07-18] MEDS ORDERED: metFORMIN 500 MG TAB PO SCH (17:30)
[2021-07-18] MEDS: LEVOFLOXACIN 250MG-D5W PMX 250 MG in DEXTROSE/WATER 1 50ML.BAG IVPB SCH (18:19)
[2021-07-18] MEDS: ATORVASTATIN 20 MG TAB PO SCH (20:30)
[2021-07-18] MEDS: SYMBICORT 160-4.5 MCG INHALER INHALATION SCH (20:34)
[2021-07-19] MEDS: DILTIAZEM 125 MG in SODIUM CHLORIDE 0.9% 100 ML IV SCH (06:55)
[2021-07-19] MEDS: ISOSORBIDE MONONITRATE ER 15 MG TAB PO SCH (07:03)
[2021-07-19] MEDS: predniSONE 10 MG TAB PO SCH (07:03)
[2021-07-19] MEDS: PANTOPRAZOLE 40 MG/10 ML VIAL IVP SCH ×2 (07:04→20:37)
[2021-07-19] MEDS: PIPERACILLIN-TAZOBACTAM 3.375 GM in SODIUM CHLORIDE 0.9% 100 ML IVPB SCH ×2 (07:05→16:15)
[2021-07-19] MEDS: SYMBICORT 160-4.5 MCG INHALER INHALATION SCH ×2 (08:31→20:38)
[2021-07-19] MEDS: IPRATROPIUM-ALBUTEROL 3 ML NEB INHALATION SCH ×4 (08:31→20:39)
[2021-07-19 10:10] LABS: HCT 28.8 % (34.0-46.0); HGB 9.2 gm/dL (11.4-16.0); Hypochromasia Moderate; MCH 30.7 pg (25.0-35.0); MCHC 31.8 g/dL (31.0-37.0); MCV 96.5 fL (80.0-100.0); Mean Platelet Volume 7.5; Platelet Count 248 k/uL (150-450); Poikilocytosis Slight; RBC 2.98 m/uL (3.80-5.40); RDW 15.8 % (11.5-15.5); WBC 13.9 k/uL (3.8-10.6)
[2021-07-19] MEDS: SODIUM CHLORIDE 0.9% 1,000 ML IV SCH ×2 (10:29)
[2021-07-19] MEDS ORDERED: DILTIAZEM CD 180 MG CAP.ER.24H PO SCH (11:00)
--- NOTE | 2021-07-19 11:35 | P.PN ---
Subjective Progress Note Date: 07/19/21 The patient was interviewed and examined lying comfortably in bed. She states she is gradually feeling better. She denies any chest pain or chest pressure. No difficulty breathing. No dizziness or lightheadedness upon standing. Echocardiogram revealed LV function of 55-60% with moderate aortic sclerosis, moderate aortic stenosis, mild MR, mild TR GENERAL: Well-appearing, well-nourished and in no acute distress. NECK: Supple without JVD or thyromegaly. LUNGS: Breath sounds clear to auscultation bilaterally. Respiration equal and unlabored. No wheezes, rales or rhonchi. HEART: Irregular rate and rhythm without murmurs, rubs or gallops. S1 and S2 heard. EXTREMITIES: Normal range of motion, no edema. No clubbing or cyanosis. Peripheral pulses intact and strong. VITALS: Blood pressure 112/62, SpO2 99% on 2 L nasal cannula, heart rate 112, respiratory rate 18, temp 98.7F TELEMETRY: Atrial fibrillation. Heart rate in the 1 teens. Patient received first dose of oral Cardizem this morning LABS: White count 13.9, hemoglobin 9.2, hematocrit 28.8, platelet 248 IMPRESSION: Paroxysmal atrial fibrillation, on oral Cardizem History of congestive heart failure Hypertension Dyslipidemia PLAN: Discontinue IV fluids as she has a history of congestive heart failure Encourage oral fluid intake Continue oral Cardizem Further recommendations with patient on clinical course The patient has been seen and evaluated by nurse practitioner and coordinating physician. Plan of care has been reviewed and agreed upon by Dr Jerez. Objective - Vital Signs Vital signs: Vital Signs Temp 98.7 F 07/19/21 08:08 Pulse 112 H 07/19/21 09:06 Resp 19 07/19/21 08:08 BP 112/62 07/19/21 09:48 Pulse Ox 99 07/19/21 08:08 Intake & Output 07/18/21 07/19/21 07/19/21 18:59 06:59 18:59 Output Total 400 Balance -400 Weight 74.3 kg Output: Urine 400 Other: Voiding Method External Catheter External Catheter - Labs CBC & Chem 7: 07/19/21 09:37 07/18/21 05:35 Labs: Abnormal Lab Results - Last 24 Hours (Table) 07/19/21 Range/Units 09:37 WBC 13.9 H (3.8-10.6) k/uL RBC 2.98 L (3.80-5.40) m/uL Hgb 9.2 L (11.4-16.0) gm/dL Hct 28.8 L (34.0-46.0) % RDW 15.8 H (11.5-15.5) %
--- NOTE | 2021-07-19 11:40 | P.GSCN ---
History of Present Illness Consult date: 07/18/21 Reason for Consult: GI bleed History of present illness: This is a 10-year-old female admitted to Dr. Gutiérrez. Patient has had multiple admissions for GI bleed. Patient started having bleeding again. She has been on anticoagulation. Past Medical History Past Medical History: Atrial Fibrillation, Cancer, Heart Failure, COPD, GERD/Reflux, Hyperlipidemia, Hypertension, Osteoarthritis (OA) Additional Past Medical History / Comment(s): skin cancer on scalp, macular degeneration History of Any Multi-Drug Resistant Organisms: None Reported Past Surgical History: Hernia Repair, Pacemaker, Tonsillectomy Additional Past Surgical History / Comment(s): skin cancer removed from scalp, andrew cataracts Past Anesthesia/Blood Transfusion Reactions: No Reported Reaction Type of Cardiac Device: Permanent Pacemaker Device Placement Date:: 2017 Past Psychological History: No Psychological Hx Reported Smoking Status: Former smoker Past Alcohol Use History: Occasional Past Drug Use History: None Reported - Past Family History Father Family Medical History: Coronary Artery Disease (CAD) Additional Family Medical History / Comment(s): Father at age 91 with history of heart disease. Mother Family Medical History: Cancer Additional Family Medical History / Comment(s): Mother at age 87 from pancreatic cancer. Brother(s) Additional Family Medical History / Comment(s): Patient has 1 brother that at age 93 from liver cancer. Sister(s) Additional Family Medical History / Comment(s): Patient has 2 sisters with no major medical problems. Daughter(s) Additional Family Medical History / Comment(s): Patient has a total of 4 children, 3 daughters and 1 son. One daughter at a young age and a motor vehicle accident. Medications and Allergies Home Medications Medication Instructions Recorded Confirmed Type Famotidine [Pepcid] 20 mg PO AC-BID 10/23/17 07/17/21 History Albuterol Inhaler [Ventolin Hfa 1 - 2 puff INHALATION RT-QID PRN 06/16/20 07/17/21 History Inhaler] Atorvastatin [Lipitor] 20 mg PO HS 06/16/20 07/17/21 History Digoxin [Digitek] 62.5 mcg PO MOTUWETHFRSA 06/16/20 07/17/21 History Isosorbide Mononitrate ER [Imdur] 15 mg PO DAILY 06/16/20 07/17/21 History Omeprazole 20 mg PO DAILY 06/16/20 07/17/21 History Risedronate Sodium [Risedronate 35 mg PO MO 06/16/20 07/17/[address]] Calcium Carbonate [Calcium] 600 mg PO AC-LUNCH 01/21/21 07/17/21 History Cyanocobalamin (Vitamin B-12) 1,000 mcg PO AC-LUNCH 01/21/21 07/17/21 History [Vitamin B-12] Dapagliflozin Propanediol [Farxiga] 5 mg PO DAILY 01/21/21 07/17/21 History Ipratropium-Albuterol Nebulize 3 ml INHALATION RT-QID 01/21/21 07/17/21 History [Duoneb 0.5 mg-3 mg/3 ml Soln] Magnesium Oxide [Mag-Ox] 400 mg PO AC-LUNCH 01/21/21 07/17/21 History Melatonin 5 mg PO HS 01/21/21 07/17/21 History metFORMIN HCL [Glucophage] 1,000 mg PO AC-SUPPER 01/21/21 07/17/21 History Budesonide-Formot 160-4.5 Mcg 2 puff INHALATION RT-BID #1 puff 01/24/21 07/17/21 Rx [Symbicort 160-4.5 Mcg Inhaler] Ascorbic Acid [Vitamin C] 500 mg PO BID tab 05/01/21 07/17/21 Rx Cholecalciferol [Vitamin D3 (25 50 mcg PO DAILY tablet 05/01/21 07/17/21 Rx Mcg = 1000 Iu)] predniSONE 10 mg PO DAILY #0 05/01/21 07/17/21 Rx Potassium Chloride [Potassium 10 meq PO AC-BID 05/04/21 07/17/21 History Chloride ER] Diltiazem Cd [Cardizem CD] 360 mg PO DAILY #30 capsule 05/11/21 07/17/21 Rx Furosemide [Lasix] 40 mg PO BID@0900,1600 #60 tab 05/11/21 07/17/21 Rx Metoprolol Tartrate [Lopressor] 100 mg PO BID 07/10/21 07/17/21 History Apixaban [Eliquis] 2.5 mg PO BID #0 07/14/21 07/17/21 Rx Allergies Allergy/AdvReac Type Severity Reaction Status Date / Time Sulfa (Sulfonamide Allergy Unknown Verified 07/17/21 15:59 Antibiotics) Childhood shellfish derived [Shellfish] AdvReac Nausea & Verified 07/17/21 15:59 Vomiting & Diarrhea Surgical - Exam Vital Signs Temp Pulse Resp BP Pulse Ox 97.7 F 99 20 99/60 98 07/17/21 14:09 07/17/21 14:09 07/17/21 14:09 07/17/21 14:09 07/17/21 14:09 - General well developed, well nourished, no distress - Eyes PERRL - ENT normal pinna - Respiratory normal expansion - Cardiovascular Rhythm: regular - Abdomen Abdomen: soft, non tender Results - Labs 07/19/21 09:37 07/18/21 05:35 Abnormal Lab Results - Last 24 Hours (Table) 07/19/21 Range/Units 09:37 WBC 13.9 H (3.8-10.6) k/uL RBC 2.98 L (3.80-5.40) m/uL Hgb 9.2 L (11.4-16.0) gm/dL Hct 28.8 L (34.0-46.0) % RDW 15.8 H (11.5-15.5) % Assessment and Plan Assessment: Recurrent GI bleed on adequate ventilation. Patient will need to undergo endoscopy.
[2021-07-19] MEDS ORDERED: PEG 3350-NA SULF,BICARB,CL/KCL 4,000 ML BOTTLE PO ONE (11:41)
--- NOTE | 2021-07-19 11:41 | P.PN ---
Progress Note - Text Progress Note Date: 07/19/21 Patient [place] stable. On exam vital signs are stable. Abdomen soft. Patient was reprepped for upper and lower endoscopy.
--- NOTE | 2021-07-19 12:05 | P.PN ---
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 Was recently discharged from [facility] after she was admitted for lower GI bleed and she did receive one units of PRBC and her hemoglobin was stable after she was taken off Eliquis on the discharge she was at 11.5, then she restarted Eliquis on Tuesday and since she was discharged from the hospital she has been complaining of significant polyuria and going to the bathroom all night long, she felt exhausted and not able to keep up with her fluid intake, VNA went to see the patient today and she was comlaining of lethargy and increased shortness of breath, she was sent in by EMS to the ER at [facility] for evaluation, BGM was 140, the rest of the labs were relatively stable, her hemoglobin was down to 9.9 and she was having significant expiratory wheezes, CXR did show possible worsening infiltrate, and BNP slightly elevated, nothing drastic , she is already on home O2, but because of the presentation she was started on IV Levaquin 250 mg IVPB daily along with Zosyn and Slu-Medrol 40 mg IVP Q 8 hours, lasix 40 mg IVP Q 12 hours, pulmonary and cardiology consult. While the patient was in the emergency department she did have a large bowel movement that was bloody with about 250 mL of fresh blood, patient apparently is having a lower GI bleed, transfer the patient to the intensive care unit, type and cross and transfuse 1 unit of packed red blood cells, consult general surgery Dr. Hay, monitor the patient's CBC every 6 hours, keep the patient the ER until a bed becomes available in the intensive care unit. 07/18: Patient is laying down in bed she had multiple episodes of bright red blood per rectum since last night, and a team was called and the patient as the patient heart rate 1 250 she did receive adenosine, she did receive metoprolol 50 mg orally and top of her metoprolol that she is taking, she was taken off Eliquis, she was given 1 unit of packed red blood cells, her hemoglobin is stable at 9, patient will be transferred to the ICU, the plan is to have an EGD and colonoscopy hopefully on Tuesday keep the patient on nothing per mouth for now. 07/19: Patient is laying down in bed in no apparent distress, her hemoglobin is 9.5 today after blood transfusion, no more GI bleed at this time, I spoke with general surgery about planning for EGD tomorrow morning because of patient's chronic anticoagulations due to chronic atrial fibrillation, continue Protonix 40 mg IV push every 12 hours, continue to monitor hemoglobin over the next 24 hours, continue oxygen support, blood pressure some marginal metoprolol was discontinued and the patient was started back on Cardizem 360 mg orally once every day, we'll follow the patient very closely. REVIEW OF SYSTEMS Constitutional: no fever no chills, no night sweats. No weight change. Reports weakness, Reports fatigue no lethargy. No daytime sleepiness. HEENT: No headache. No blurred vision or double vision, no loss of vision. No loss of Hearing, no ringing in the ears, no dizziness. No nasal drainage or c ongestion. No epistaxis. No sore throat, no loss of taste Lungs: Reports shortness of breath, minimal cough, no sputum production. Reports wheezing. Cardiovascular: No chest pain,positive for lower extremity edema. positive for palpitations. No paroxysmal nocturnal dyspnea. No orthopnea. No lightheadedness or dizziness. No syncopal episodes. Abdominal: No abdominal pain. No nausea, vomiting. No diarrhea. No constipation. Reports bloody or tarry stools.. No loss of appetite. Genitourinary: No dysuria, increased frequency, urgency. No urinary retention. Musculoskeletal: No myalgias. positive for muscle weakness, no gait dysfunction, no frequent falls. No back pain. No neck pain. Integumentary: No wounds, no lesions. No rash or pruritus. No unusual bruising. No change in hair or nails. Neurologic: No aphasia. No facial droop. No change in mentation. No head injury. No headache. No paralysis. No paresthesia. Psychiatric: No depression. No anxiety. No mood swings. Endocrine: No abnormal blood sugars. PHYSICAL EXAMINATION Gen: This is an 89-year-old female, lying down in bed in acute distress currently on BIPAP. HEENT: Head is atraumatic, normocephalic. Pupils equal, round. Sclerae is anicteric, mucous membranes of the mouth are somewhat dry. NECK: Supple. No JVD. No lymphadenopathy. No thyromegaly, decreased carotid up strokes bilaterally. Chest: decrease breath sounds at the bases with scattered rhonchi,minimal expi ratory wheezes, no chest wall tenderness minimal intercostal retractions. Heart: first heart sound is depressed second heart sound is normal there FLORY 2/6 located at the left sternal border, irregularly irregular due to atrial fibrillation. Tachycardia. ABDOMEN: Soft, nontender, nondistended, positive bowel sounds, no hepatosplenomegaly. EXTREMITIES: +2 pedal edema. No calf tenderness. Dorsalis pedis +1 bilaterally. NEUROLOGICAL: Patient is awake, alert and oriented x3. Cranial nerves 2 through 12 are grossly intact muscle christopher 4 out of 5 in upper and lower extremities bilaterally., ASSESSMENT AND PLAN 1. Acute Hypoxemic respiratory failure due to COPD exacerbation with possible gram negative pneumonia along with diastolic heart failure. Discontinue Solu-M edrol Zosyn 3.375 gr IVPB Q 8 hours, we will continue with NEB treatment and O2 support, discontinue IV Lasix due to the GI bleed. 2. Lower GI bleed discontinue Eliquis start the patient on IV fluid in the form of normal saline at 75 mL an hour, type and cross and transfuse 1 unit of packed red blood cell, general surgery consultation from Dr. Hay, transfer the patient to the ICU, monitor the CBC every 6 hours. Start the patient on Protonix 40 mg IV push every 12 hours, patient is in agreement to have an EGD and colonoscopy hopefully in the next 24 hours. 2. Atrial fibrillation w/RVR, paroxysmal. Patient currently in A. fib. Continue Digoxin 125 mcg orally daily, Cardizem CD 360 mg orally daily, Metoprolol 100 mg orally bid, discontinue Eliquis 3. Acute exacerbation of COPD with a prior history of COVID-19 pneumonia. Discontinue Solu-Medrol, DuoNeb 3 mL nebulization 4 times every day, Symbicort 2 puffs twice daily, oxygen at 3 L nasal cannula adjust for saturation 92-93%, pulmonary consultation appreciated. 4. Hypertension and hypertensive cardiovascular disease. Patient was taken off metoprolol due to hypotension 5. Hyperlipidemia. Continue Lipitor 20 mg orally daily. 6. Acute on chronic diastolic heart failure.off metoprolol 7. 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 we will continue with above treatment. 8. GERD. we will continue with Protonix 40 mg IV push every 12 hours 9. CAD. Continue Lipitor 20 mg orally daily and Imdur 15 mg orally daily. 10. Diabetes mellitus type 2. we will hold metformin and Farxiga, we will start sliding scale insulin. 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 we will hold off Residronate. 12. DVT prophylaxis. Hold off Eliquis. 13. GI Prophylaxis. we will continue with protonix 40 mg IV push every 12 hours 14. Guarded prognosis. 15. Patient is full code. Objective - Vital Signs Vital signs: Vital Signs Temp 98.7 F 07/19/21 08:08 Pulse 112 H 07/19/21 09:06 Resp 19 07/19/21 08:08 BP 112/62 07/19/21 09:48 Pulse Ox 99 07/19/21 08:08 Intake & Output 07/18/21 07/19/21 07/19/21 18:59 06:59 18:59 Output Total 400 Balance -400 Weight 74.3 kg Output: Urine 400 Other: Voiding Method External Catheter External Catheter - Labs CBC & Chem 7: 07/19/21 09:37 07/18/21 05:35
--- NOTE | 2021-07-19 14:15 | P.PN ---
Subjective Progress Note Date: 07/19/21 This is a pleasant 75-year-old female patient who was hospitalized because of persistent pneumonia. The patient is well-known to us. 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 She receives TPN for nutritional support and she is to have a MediPort and based on the recent systemic candidiasis, the patient had a MediPort removed on 05/30/2021 and the patient was given a course of antifungal agents which she completed on outpatient basis. She was seen by our nurse practitioner in the office and she was felt to have ongoing pneumonia and she was asked to receive some IV antibiot ics and antibiotics did not arrive and the patient was quite concerning for that reason she end up in the emergency. Currently she is on room air oxygen. She has a dry cough. No hemoptysis. No pleurisy. She does have some chronic discomfort in her chest. White cell count is not elevated. Her white cell count is at 12.4 with 8.7. And a platelet count of 504. Creatinine is at 1.56 with a mean of 25 consistent with chronic kidney disease and the sodium level is at 135. Hematocrit COVID 19 testing was negative. I reviewed the chest x-ray that shows evidence of chronic consolidation in the left mid lung measuring 8 x 5 cm in size and there is a similar area in the right midlung area measuring 6 x 4 cm in size. These are chronic and there is been some progression compared to the previous exam from 09/14/2020. The patient was started on IV Zosyn. Her most recent bronchioloalveolar lavage from 05/08/2021 showed staph aureus and her most recent CAT scan of the chest that was done on 04/13/2021 showed chronic right midlung nodular scarring with volume loss. The patient also had a tiny left-sided pleural effusion and left lung nodular scarring demonstrated in the mid and the lower lung cotto. For now, the patient is a PICC line in the left upper extremity On 07/19/2021, seeing the patient for a follow-up H is resting comfortably in bed. Hemoglobin is stable. Note that we have not seen any signs of GI bleeding. Not seen any worsening her respiratory status H is calm and comfortable. Infiltrates in the lungs are sacral area of a previous infection and these are rather chronic at this point in time. Rule out any acute infection. The patient is nothing by mouth. The patient is going to have a bowel prep today and this will be followed up with a colonoscopy and EGD tomorrow. The patient continues to be on IV Protonix for now. Hemoglobin has been stable. Oxygenation is also stable. Hemoglobin today is at 9.5. Objective - Vital Signs Vital signs: Vital Signs Temp 98.3 F 07/19/21 13:50 Pulse 114 H 07/19/21 13:50 Resp 17 07/19/21 13:50 BP 118/67 07/19/21 13:50 Pulse Ox 99 07/19/21 13:50 Intake & Output 07/18/21 07/19/21 07/19/21 18:59 06:59 18:59 Output Total 400 Balance -400 Weight 74.3 kg Output: Urine 400 Other: Voiding Method External Catheter External Catheter - Exam GENERAL EXAM: Alert, very pleasant 89-year-old female patient, on 2 L nasal cannula, comfortable in no apparent distress. HEAD: Normocephalic. EYES: Normal reaction of pupils, equal size. NOSE: Clear with pink turbinates. THROAT: No erythema or exudates. NECK: No masses, no JVD. CHEST: No chest wall deformity. LUNGS: Equal air entry with crackles in the bilateral bases CVS: S1 and S2 normal with no audible murmur, regular rhythm. ABDOMEN: No hepatosplenomegaly, normal bowel sounds, no guarding or rigidity. SPINE: No scoliosis or deformity SKIN: No rashes CENTRAL NERVOUS SYSTEM: No focal deficits, tone is normal in all 4 extremities. EXTREMITIES: There is no peripheral edema. No clubbing, no cyanosis. Peripheral pulses are intact. - Labs CBC & Chem 7: 07/19/21 09:37 07/18/21 05:35 Labs: Abnormal Lab Results - Last 24 Hours (Table) 07/19/21 Range/Units 09:37 WBC 13.9 H (3.8-10.6) k/uL RBC 2.98 L (3.80-5.40) m/uL Hgb 9.2 L (11.4-16.0) gm/dL Hct 28.8 L (34.0-46.0) % RDW 15.8 H (11.5-15.5) % Assessment and Plan Plan: 1 Acute on chronic hypoxemic respiratory failure, multifactorial, in a patient found to be in atrial flutter, diastolic congestive heart failure, COPD exacerbation, possible healthcare acquired pneumonia, previous COVID-19 inf ection. Stable and on 2 L nasal cannula 2 GI bleed with dark with a bowel movement with clots last evening. Hemoglobin 8.7 and received 1 unit of packed red blood cells with a current hemoglobin of 9.5, and subsequent hemoglobin from today is at 9.2 and the patient is not showing any signs of bleeding. The patient will be undergoing bowel prep for EGD and colonoscopy tomorrow. 3 Atrial flutter, chronic 4 History of atrial fibrillation with a rapid ventricular response, anticoagulated with Eliquis in the outpatient setting 5 Acute on chronic diastolic congestive heart failure with preserved left ventricular systolic function ejection fraction 55-60% 6 Advanced chronic obstructive pulmonary disease, oxygen dependent and steroid dependent 7 History of hypertension 8 History of sick sinus syndrome status post dual-chamber pacemaker implantation Plan No need for ICU transfer. Condition stable. The patient got transfused with a unit of packed RBC. Hemoglobin is stable. Proceed with EGD and colonoscopy tomorrow Continue IV Protonix Bowel prep today Resume daily prednisone of 10 mg Antibiotic per medicine. Pulmonary today care services we'll sign off.
[2021-07-19] MEDS ORDERED: METOPROLOL TARTRATE 50 MG TAB PO STA (14:39)
[2021-07-19] MEDS: LEVOFLOXACIN 250MG-D5W PMX 250 MG in DEXTROSE/WATER 1 50ML.BAG IVPB SCH (20:38)
[2021-07-19] MEDS: ATORVASTATIN 20 MG TAB PO SCH (20:38)
[2021-07-19] MEDS: METOPROLOL TARTRATE 50 MG TAB PO SCH (20:46)
[2021-07-20] MEDS: PIPERACILLIN-TAZOBACTAM 3.375 GM in SODIUM CHLORIDE 0.9% 100 ML IVPB SCH ×3 (00:01→15:58)
[2021-07-20] MEDS: SODIUM CHLORIDE 0.9% 1,000 ML IV SCH ×3 (05:17→11:38)
[2021-07-20] MEDS: SYMBICORT 160-4.5 MCG INHALER INHALATION SCH ×2 (07:49→21:00)
[2021-07-20] MEDS: IPRATROPIUM-ALBUTEROL 3 ML NEB INHALATION SCH ×4 (07:49→20:59)
[2021-07-20] MEDS ORDERED: SODIUM CHLORIDE 0.9% 1,000 ML IV SCH (08:15)
[2021-07-20] MEDS: DIGOXIN 125 MCG TAB PO SCH (08:58)
[2021-07-20] MEDS: METOPROLOL TARTRATE 50 MG TAB PO SCH ×2 (08:59→20:37)
[2021-07-20] MEDS: ISOSORBIDE MONONITRATE ER 15 MG TAB PO SCH (08:59)
[2021-07-20] MEDS: PANTOPRAZOLE 40 MG/10 ML VIAL IVP SCH ×2 (09:00→20:36)
[2021-07-20] MEDS: predniSONE 10 MG TAB PO SCH (09:01)
--- NOTE | 2021-07-20 09:23 | P.PN ---
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 Was recently discharged from [facility] after she was admitted for lower GI bleed and she did receive one units of PRBC and her hemoglobin was stable after she was taken off Eliquis on the discharge she was at 11.5, then she restarted Eliquis on Tuesday and since she was discharged from the hospital she has been complaining of significant polyuria and going to the bathroom all night long, she felt exhausted and not able to keep up with her fluid intake, VNA went to see the patient today and she was comlaining of lethargy and increased shortness of breath, she was sent in by EMS to the ER at [facility] for evaluation, BGM was 140, the rest of the labs were relatively stable, her hemoglobin was down to 9.9 and she was having significant expiratory wheezes, CXR did show possible worsening infiltrate, and BNP slightly elevated, nothing drastic , she is already on home O2, but because of the presentation she was started on IV Levaquin 250 mg IVPB daily along with Zosyn a nd Slu-Medrol 40 mg IVP Q 8 hours, lasix 40 mg IVP Q 12 hours, pulmonary and cardiology consult. While the patient was in the emergency department she did have a large bowel movement that was bloody with about 250 mL of fresh blood, patient apparently is having a lower GI bleed, transfer the patient to the intensive care unit, type and cross and transfuse 1 unit of packed red blood cells, consult general surgery Dr. aHy, monitor the patient's CBC every 6 hours, keep the patient the ER until a bed becomes available in the intensive care unit. 07/18: Patient is laying down in bed she had multiple episodes of bright red blood per rectum since last night, and a team was called and the patient as the patient heart rate 1 250 she did receive adenosine, she did receive metoprolol 50 mg orally and top of her metoprolol that she is taking, she was taken off Eliquis, she was given 1 unit of packed red blood cells, her hemoglobin is stable at 9, patient will be transferred to the ICU, the plan is to have an EGD and colonoscopy hopefully on Tuesday keep the patient on nothing per mouth for n ow. 07/19: Patient is laying down in bed in no apparent distress, her hemoglobin is 9.5 today after blood transfusion, no more GI bleed at this time, I spoke with general surgery about planning for EGD tomorrow morning because of patient's chronic anticoagulations due to chronic atrial fibrillation, continue Protonix 40 mg IV push every 12 hours, continue to monitor hemoglobin over the next 24 hours, continue oxygen support, blood pressure some marginal metoprolol was discontinued and the patient was started back on Cardizem 360 mg orally once every day, we'll follow the patient very closely. 07/20: Patient is seen today resting in recliner and appears to be quite tired. She had good results from the prep last night. EGD and colonoscopy today. She denies any abdominal pain and did not notice if there was any blood in her bowel movements last evening. Heart rate is elevated and she will receive her beta tai, Cardizem. Patient is followed by cardiology and pulmonary medicine . Patient is quite dry this morning and will be given a bolus of 200 mL followed by 75 mL per hour. Patient is afebrile, heart rate 142, blood pressure 105/66, pulse ox 100% on 2 L nasal cannula. 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 Hemoglobin is 9.2, WBC 13.9. Echocardiogram reveals EF of 55-60% with borderline concentric left ventricular hypertrophy, mild aortic regurgitation, moderate aortic stenosis, mild mitral regurgitation, mild tricuspid regurgitation, mild pulmonary hypertension, RVSP 34.73 mmHg. REVIEW OF SYSTEMS Constitutional: no fever no chills, no night sweats. No weight change. Reports weakness, Reports fatigue no lethargy. No daytime sleepiness. HEENT: No headache. No blurred vision or double vision, no loss of vision. No loss of Hearing, no ringing in the ears, no dizziness. No nasal drainage or congestion. No epistaxis. No sore throat, no loss of taste Lungs: Denies shortness of breath, minimal cough, no sputum production. Denies wheezing. Cardiovascular: No chest pain,positive for lower extremity edema. positive for palpitations. No paroxysmal nocturnal dyspnea. No orthopnea. No lightheadedness or dizziness. No syncopal episodes. Abdominal: No abdominal pain. No nausea, vomiting. No diarrhea. No constipation. Reports bloody or tarry stools.. No loss of appetite. Genitourinary: No dysuria, increased frequency, urgency. No urinary retention. Musculoskeletal: No myalgias. positive for muscle weakness, no gait dysfunction, no frequent falls. No back pain. No neck pain. Integumentary: No wounds, no lesions. No rash or pruritus. No unusual bruising. No change in hair or nails. Neurologic: No aphasia. No facial droop. No change in mentation. No head injury. No headache. No paralysis. No paresthesia. Psychiatric: No depression. No anxiety. No mood swings. Endocrine: No abnormal blood sugars. PHYSICAL EXAMINATION Gen: This is an 89-year-old female, lying down in bed in no acute distress currently on O2 2 L nasal cannula. HEENT: Head is atraumatic, normocephalic. Pupils equal, round. Sclerae is anicteric, mucous membranes of the mouth are somewhat dry. NECK: Supple. No JVD. No lymphadenopathy. No thyromegaly, decreased carotid upstrokes bilaterally. Chest: decrease breath sounds at the bases with scattered rhonchi,minimal expiratory wheezes, no chest wall tenderness minimal intercostal retractions. Heart: first heart sound is depressed second heart sound is normal there FLORY 2/6 located at the left sternal border, irregularly irregular due to atrial fibrillation. Tachycardia. ABDOMEN: Soft, nontender, nondistended, positive bowel sounds, no hep atosplenomegaly. EXTREMITIES: +2 pedal edema. No calf tenderness. Dorsalis pedis +1 bilaterally. NEUROLOGICAL: Patient is awake, alert and oriented x3. Cranial nerves 2 through 12 are grossly intact muscle christopher 4 out of 5 in upper and lower extremities bilaterally., ASSESSMENT AND PLAN 1. Acute Hypoxemic respiratory failure due to COPD exacerbation with possible gram negative pneumonia along with diastolic heart failure. Discontinue Solu- Medrol Zosyn 3.375 gr IVPB Q 8 hours, we will continue with NEB treatment and O2 support, discontinue IV Lasix due to the GI bleed. 2. Lower GI bleed discontinue Eliquis start the patient on IV fluid in the form of normal saline at 75 mL an hour, type and cross and transfuse 1 unit of packed red blood cell, general surgery consultation from Dr. Hay, transfer the patient to the ICU, monitor the CBC every 6 hours. Start the patient on Protonix 40 mg IV push every 12 hours, patient is in agreement to have an EGD and colonoscopy hopefully in the next 24 hours. Resume IV fluids at 75 mL per hour until she is able to eat following procedures. 2. Atrial fibrillation w/RVR, paroxysmal. Patient currently in A. fib. Continue Digoxin 125 mcg orally daily, Cardizem CD 360 mg orally daily, Metoprolol 100 mg orally bid, discontinue Eliquis 3. Acute exacerbation of COPD with a prior history of COVID-19 pneumonia. Discontinue Solu-Medrol, DuoNeb 3 mL nebulization 4 times every day, Symbicort 2 puffs twice daily, oxygen at 3 L nasal cannula adjust for saturation 92-93%, pulmonary consultation appreciated. 4. Hypertension and hypertensive cardiovascular disease. Patient was taken off metoprolol due to hypotension 5. Hyperlipidemia. Continue Lipitor 20 mg orally daily. 6. Acute on chronic diastolic heart failure.off metoprolol 7. 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 we will continue with above treatment. 8. GERD. we will continue with Protonix 40 mg IV push every 12 hours 9. CAD. Continue Lipitor 20 mg orally daily and Imdur 15 mg orally daily. 10. Diabetes mellitus type 2. we will hold metformin and Farxiga, we will start sliding scale insulin. 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 we will hold off Residronate. 12. DVT prophylaxis. Hold off Eliquis. 13. GI Prophylaxis. we will continue with protonix 40 mg IV push every 12 hours 14. Guarded prognosis. 15. Patient is full code. Discharge plan Home Impression and plan of care have been directed as dictated by the signing physician. Noelle Gilbert nurse practitioner acting as scribe for signing physician. Objective - Vital Signs Vital signs: Vital Signs Temp 97.2 F L 07/20/21 01:45 Pulse 114 H 07/20/21 08:03 Resp 18 07/20/21 01:45 BP 88/54 07/20/21 01:45 Pulse Ox 100 07/20/21 01:45 Intake & Output 07/19/21 07/20/21 07/20/21 18:59 06:59 18:59 Intake Total 250 Balance 250 Weight 76.2 kg Intake: Oral 250 Other: Voiding Method External Catheter # Voids 2 2 # Bowel Movements 4 4 - Labs CBC & Chem 7: 07/19/21 09:37 07/18/21 05:35 Labs: Abnormal Lab Results - Last 24 Hours (Table) 07/19/21 Range/Units 09:37 WBC 13.9 H (3.8-10.6) k/uL RBC 2.98 L (3.80-5.40) m/uL Hgb 9.2 L (11.4-16.0) gm/dL Hct 28.8 L (34.0-46.0) % RDW 15.8 H (11.5-15.5) %
[2021-07-20] MEDS: DILTIAZEM CD 180 MG CAP.ER.24H PO SCH (09:56)
--- NOTE | 2021-07-20 10:27 | P.PN ---
Subjective Progress Note Date: 07/20/21 HISTORY OF PRESENT ILLNESS: This is an 89-year-old female who follows in the office with Dr. Pina. Patient has a past medical history of chronic persistent atrial fibrillation, chronic hypoxic respiratory failure with home O2, chronic diastolic congestive heart failure, COPD, hypertension, sick sinus syndrome with dual-chamber pacemaker in 2018, and former nicotine dependence. Patient is admitted to the hospital secondary to COPD, possible pneumonia, and lower GI bleed. Patient's Eliquis remains on hold. Patient is scheduled to undergo EGD and colonoscopy today. Telemetry reveals atrial fibrillation with a heart rate around 140. Echocardiogram completed revealing ejection fraction 55-60%, mild aortic regurgitation, moderate aortic stenosis, mild mitral regurgitation, and mild tricuspid regurgitation. PHYSICAL EXAM: VITAL SIGNS: Reviewed. GENERAL: Well-developed in no acute distress. NECK: Supple. No JVD or thyromegaly LUNGS: Respirations even and unlabored. Lungs essentially clear to auscultation bilaterally. HEART: Tachycardic. Irregular rate and rhythm. S1 and S2 heard. EXTREMITIES: Normal range of motion. No clubbing or cyanosis. Peripheral pulses intact. No lower extremity edema ASSESSMENT: COPD exacerbation Acute on chronic hypoxic respiratory failure Possible pneumonia Lower GI bleed with acute blood loss anemia Chronic persistent atrial fibrillation with RVR Chronic diastolic congestive heart failure Hypertension Hyperlipidemia Diabetes Sick sinus syndrome with dual-chamber pacemaker implantation in 2018 Former nicotine dependence PLAN: Patient is not cleared to undergo EGD and colonoscopy today from a cardiac standpoint due to A. fib with RVR Continue to hold Eliquis Patient just received her metoprolol and digoxin at the time of our examination. Nursing to give patient her dose of Cardizem as well Continue to monitor telemetry If patients RVR persists, likely transfer to for Cardizem infusion. Will consider RAHEEM/CV Further recommendations pending patient course Nurse practitioner note has been reviewed by physician. Signing provider agrees with the documented findings, assessment, and plan of care. Objective - Vital Signs Vital signs: Vital Signs Temp 97.3 F L 07/20/21 08:46 Pulse 147 H 07/20/21 08:57 Resp 16 07/20/21 08:46 BP 115/79 07/20/21 08:57 Pulse Ox 100 07/20/21 08:46 Intake & Output 01/16/22 01/17/22 01/17/22 18:59 06:59 18:59 Intake Total 250 Balance 250 Weight 76.2 kg Intake: Oral 250 Other: Voiding Method External Catheter # Voids 2 2 # Bowel Movements 4 4 - Labs CBC & Chem 7: 07/19/21 09:37 07/18/21 05:35
[2021-07-20 11:26] LABS: HCT 27.4 % (34.0-46.0); HGB 8.8 gm/dL (11.4-16.0); Hypochromasia Moderate; MCH 30.9 pg (25.0-35.0); MCHC 32.2 g/dL (31.0-37.0); MCV 95.8 fL (80.0-100.0); Mean Platelet Volume 7.4; Platelet Count 192 k/uL (150-450); Poikilocytosis Slight; RBC 2.86 m/uL (3.80-5.40); RDW 15.9 % (11.5-15.5); WBC 8.6 k/uL (3.8-10.6)
[2021-07-20 11:44] LABS: African American GFR (CKD) 67 (>60 ml/min/1.73 sqM); Anion Gap 1 mmol/L; Blood Urea Nitrogen 15 mg/dL (7-17); Calcium 6.5 mg/dL (8.4-10.2); Carbon Dioxide 33 mmol/L (22-30); Chloride 102 mmol/L (98-107); Glucose 114 mg/dL (74-99); Non-African American GFR(CKD) 58 (>60 ml/min/1.73 sqM); Potassium 2.9 mmol/L (3.5-5.1); Sodium 136 mmol/L (137-145)
[2021-07-20] MEDS ORDERED: Potassium Replacement Protocol 1 EACH MISC MISCELLANE PRN (12:05)
[2021-07-20] MEDS: POTASSIUM CHLORIDE ER 20 MEQ TAB.ER PO SCH ×3 (12:33→15:58)
--- NOTE | 2021-07-20 13:16 | P.PN ---
<LioYenifer - Last Filed: 07/20/21 13:05> Subjective Progress Note Date: 07/20/21 CHIEF COMPLAINT: GI bleed HISTORY OF PRESENT ILLNESS: 89-year-old female who presented to the emergency department on 07/17/2021 with complaints of weakness. She had been recently admitted to the hospital for a lower GI bleed. She has a history of atrial fibrillation on Eliquis. During the last hospitalization and was put on hold however she resumed it Tuesday prior to coming in. Hemoglobin on admission was 9.8. Repeat today was 8.8. She was scheduled for EGD and colonoscopy today. She did her bowel prep yesterday evening and was having clear output. However this morning she had a heart rate in the 140s upper which cardiology recommended canceling EGD and colonoscopy today. She denies any abdominal pain, nausea, or vomiting. Some of the stool had been dark. Clear now. Nursing is reporting watery stool with a clear to light brown in color. PHYSICAL EXAM: VITAL SIGNS: Reviewed. GENERAL: Well-developed in no acute distress. HEENT: No sclera icterus. Extraocular movements grossly intact. Moist buccal mucosa. Head is atraumatic, normocephalic. ABDOMEN: Soft. Nondistended. Nontender. NEUROLOGIC: Alert and oriented. Cranial nerves II through XII grossly intact. ASSESSMENT: 1. GI bleed 2. Normochromic normocytic anemia 3. Atrial fibrillation on Eliquis, currently on hold PLAN: 1. Cancel EGD and colonoscopy for today 2. Patient may have clear liquid diet, nothing by mouth after midnight 3. Continue to hold anticoagulation 4. Plan for EGD colonoscopy tomorrow 5. Magnesium citrate this evening at 1999 The impression and plan of care has been dictated as directed. I performed a history and examination of this patient, discussed the same with the dictator. I agree with the dictator's note ,documented as a scribe. Any additional findings or plans will be noted. Objective - Vital Signs Vital signs: Vital Signs Temp 97.3 F L 07/20/21 08:46 Pulse 147 H 07/20/21 08:57 Resp 16 07/20/21 08:46 BP 115/79 07/20/21 08:57 Pulse Ox 100 07/20/21 08:46 Intake & Output 07/19/21 07/20/21 07/20/21 18:59 06:59 18:59 Intake Total 250 Balance 250 Weight 76.2 kg Intake: Oral 250 Other: Voiding Method External Catheter # Voids 2 2 # Bowel Movements 4 4 - Labs CBC & Chem 7: 07/20/21 10:33 07/20/21 10:33 <Curtis Hay - Last Filed: 07/20/21 17:29> Subjective I have personally seen and examined the patient, reviewed the [employer] /PAs history, exam and MDM and agree with the assessment and plan as written. Based on total visit time, I have performed more than 50% of the visit. As above. Patient readmitted with recurrent bleeding. We'll proceed with upper and lower endoscopy tomorrow. Objective - Vital Signs Vital signs: Vital Signs Temp 98.4 F 07/20/21 14:00 Pulse 112 H 07/20/21 16:39 Resp 16 07/20/21 14:00 BP 95/64 07/20/21 14:00 Pulse Ox 99 07/20/21 14:00 Intake & Output 07/19/21 07/20/21 07/20/21 18:59 06:59 18:59 Intake Total 250 Balance 250 Weight 76.2 kg Intake: Oral 250 Other: Voiding Method External Catheter # Voids 2 2 3 # Bowel Movements 4 4 - Labs CBC & Chem 7: 07/20/21 10:33 07/20/21 10:33 Labs: Abnormal Lab Results - Last 24 Hours (Table) 07/20/21 07/20/21 Range/Units 10:33 10:33 RBC 2.86 L (3.80-5.40) m/uL Hgb 8.8 L (11.4-16.0) gm/dL Hct 27.4 L (34.0-46.0) % RDW 15.9 H (11.5-15.5) % Sodium 136 L (137-145) mmol/L Potassium 2.9 L (3.5-5.1) mmol/L Carbon Dioxide 33 H (22-30) mmol/L Glucose 114 H (74-99) mg/dL Calcium 6.5 L (8.4-10.2) mg/dL
[2021-07-20] MEDS: LEVOFLOXACIN 250MG-D5W PMX 250 MG in DEXTROSE/WATER 1 50ML.BAG IVPB SCH (20:35)
[2021-07-20] MEDS: ATORVASTATIN 20 MG TAB PO SCH (20:37)
[2021-07-20] MEDS: MAGNESIUM CITRATE 296 ML BOTTLE PO SCH (20:42)
[2021-07-21] MEDS: PIPERACILLIN-TAZOBACTAM 3.375 GM in SODIUM CHLORIDE 0.9% 100 ML IVPB SCH ×3 (00:07→16:51)
[2021-07-21] MEDS: SODIUM CHLORIDE 0.9% 1,000 ML IV SCH ×2 (05:34→10:30)
[2021-07-21 07:00] LABS: African American GFR (CKD) 70 (>60 ml/min/1.73 sqM); Anion Gap 1 mmol/L; Blood Urea Nitrogen 10 mg/dL (7-17); Calcium 6.2 mg/dL (8.4-10.2); Carbon Dioxide 31 mmol/L (22-30); Chloride 105 mmol/L (98-107); Glucose 97 mg/dL (74-99); Non-African American GFR(CKD) 61 (>60 ml/min/1.73 sqM); Potassium 3.2 mmol/L (3.5-5.1); Sodium 137 mmol/L (137-145)
[2021-07-21] MEDS: PANTOPRAZOLE 40 MG/10 ML VIAL IVP SCH ×2 (08:25→20:31)
[2021-07-21] MEDS: IPRATROPIUM-ALBUTEROL 3 ML NEB INHALATION SCH ×4 (08:27→20:13)
[2021-07-21] MEDS: SYMBICORT 160-4.5 MCG INHALER INHALATION SCH ×2 (08:27→20:13)
[2021-07-21] MEDS: predniSONE 10 MG TAB PO SCH (08:47)
[2021-07-21] MEDS: ISOSORBIDE MONONITRATE ER 15 MG TAB PO SCH (08:47)
[2021-07-21] MEDS: METOPROLOL TARTRATE 50 MG TAB PO SCH ×2 (08:47→20:31)
[2021-07-21] MEDS: DIGOXIN 125 MCG TAB PO SCH (08:47)
[2021-07-21 09:05] LABS: HCT 25.7 % (37.2-46.3); MCH 29.9 pg (27.0-32.0); MCHC 31.1 g/dL (32.0-37.0); MCV 95.9 fL (80.0-97.0); Mean Platelet Volume 9.5 fL (9.5-12.2); Platelet Count 171 X 10*3/uL (140-440); RBC 2.68 X 10*6/uL (4.10-5.20); RDW 15.9 % (11.5-14.5); WBC 8.08 X 10*3/uL (4.50-10.00)
[2021-07-21] MEDS ORDERED: Potassium Replacement Protocol 1 EACH MISC MISCELLANE PRN (09:30)
[2021-07-21] MEDS: POTASSIUM CHLORIDE 10 MEQ in WATER FOR INJECTION 1 100ML.BAG IVPB SCH ×4 (09:53→15:58)
[2021-07-21] MEDS ORDERED: KETAMINE 10 MG/ML 20 ML VIAL ONE (10:15)
[2021-07-21] MEDS ORDERED: LIDOCAINE 1% INJ 10MG/ML (20 ML MDV) ONE (10:15)
[2021-07-21] MEDS ORDERED: IV FLUID CONTINUATION 1,000 ML IV ONE ×2 (10:15)
--- NOTE | 2021-07-21 10:15 | P.PN ---
Subjective Progress Note Date: 07/21/21 HISTORY OF PRESENT ILLNESS This is an 89-year old- female patient of mine with a previous medical history significant for hypertension and hypertensive cardiovascular disease, hyperlipidemia, Paroxysmal atrial fibrillation, 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 Was recently discharged from [facility] after she was admitted for lower GI bleed and she did receive one units of PRBC and her hemoglobin was stable after she was taken off Eliquis on the discharge she was at 11.5, then she restarted Eliquis on Tuesday and since she was discharged from the hospital she has been complaining of significant polyuria and going to the bathroom all night long, she felt exhausted and not able to keep up with her fluid intake, [facility]NA went to see the patient today and she was comlaining of lethargy and increased shortness of breath, she was sent in by EMS to the ER at [facility] for evaluation, BGM was 140, the rest of the labs were relatively stable, her hemoglobin was down to 9.9 and she was having significant expiratory wheezes, CXR did show possible worsening infiltrate, and BNP slightly elevated, nothing drastic , she is already on home O2, but because of the presentation she was started on IV Levaquin 250 mg IVPB daily along with Zosyn a nd Slu-Medrol 40 mg IVP Q 8 hours, lasix 40 mg IVP Q 12 hours, pulmonary and cardiology consult. While the patient was in the emergency department she did have a large bowel movement that was bloody with about 250 mL of fresh blood, patient apparently is having a lower GI bleed, transfer the patient to the intensive care unit, type and cross and transfuse 1 unit of packed red blood cells, consult general surgery Dr. Hay, monitor the patient's CBC every 6 hours, keep the patient the ER until a bed becomes available in the intensive care unit. 07/18: Patient is laying down in bed she had multiple episodes of bright red blood per rectum since last night, and a team was called and the patient as the patient heart rate 1 250 she did receive adenosine, she did receive metoprolol 50 mg orally and top of her metoprolol that she is taking, she was taken off Eliquis, she was given 1 unit of packed red blood cells, her hemoglobin is stable at 9, patient will be transferred to the ICU, the plan is to have an EGD and colonoscopy hopefully on Tuesday keep the patient on nothing per mouth for n ow. 07/19: Patient is laying down in bed in no apparent distress, her hemoglobin is 9.5 today after blood transfusion, no more GI bleed at this time, I spoke with general surgery about planning for EGD tomorrow morning because of patient's chronic anticoagulations due to chronic atrial fibrillation, continue Protonix 40 mg IV push every 12 hours, continue to monitor hemoglobin over the next 24 hours, continue oxygen support, blood pressure some marginal metoprolol was discontinued and the patient was started back on Cardizem 360 mg orally once every day, we'll follow the patient very closely. 07/20: Patient is seen today resting in recliner and appears to be quite tired. She had good results from the prep last night. EGD and colonoscopy today. She denies any abdominal pain and did not notice if there was any blood in her bowel movements last evening. Heart rate is elevated and she will receive her beta tai, Cardizem. Patient is followed by cardiology and pulmonary medicine . Patient is quite dry this morning and will be given a bolus of 200 mL followed by 75 mL per hour. Patient is afebrile, heart rate 142, blood pressure 105/66, pulse ox 100% on 2 L nasal cannula. engine monitor atrial fibrillation. Hemoglobin is 9.2, WBC 13.9. Echocardiogram reveals EF of 55-60% with borderline concentric left ventricular hypertrophy, mild aortic regurgitation, moderate aortic stenosis, mild mitral regurgitation, mild tricuspid regurgitation, mild pulmonary hypertension, RVSP 34.73 mmHg. 07/21: Endoscopy was post poned until today. Hemoglobin 8. Potassium 3.2 and will be replaced. Calcium 6.2 and will be replaced with 2 g of calcium gluconate. Patient has been afebrile, heart rate 79, blood pressure 115/62, pulse ox 90-100 on 2 L nasal cannula. engine monitor is atrial fibrillation, controlled rate. Heart rate has been running in the 70s overnight. IV fluids decreased to 50 ML's per hour. REVIEW OF SYSTEMS Constitutional: no fever no chills, no night sweats. No weight change. Reports weakness, Reports fatigue no lethargy. No daytime sleepiness. HEENT: No headache. No blurred vision or double vision, no loss of vision. No loss of Hearing, no ringing in the ears, no dizziness. No nasal drainage or congestion. No epistaxis. No sore throat, no loss of taste Lungs: Denies shortness of breath, minimal cough, no sputum production. Denies wheezing. Cardiovascular: No chest pain,positive for lower extremity edema. positive for palpitations. No paroxysmal nocturnal dyspnea. No orthopnea. No lightheadedness or dizziness. No syncopal episodes. Abdominal: No abdominal pain. No nausea, vomiting. No diarrhea. No constipation. Reports bloody or tarry stools.. No loss of appetite. Genitourinary: No dysuria, increased frequency, urgency. No urinary retention. Musculoskeletal: No myalgias. positive for muscle weakness, no gait dysfunction, no frequent falls. No back pain. No neck pain. Integumentary: No wounds, no lesions. No rash or pruritus. No unusual bruising. Neurologic: No aphasia. No facial droop. No change in mentation. No head injury. No headache. No paralysis. No paresthesia. Psychiatric: No depression. No anxiety. No mood swings. Endocrine: No abnormal blood sugars. PHYSICAL EXAMINATION Gen: This is an 89-year-old female, lying down in bed in no acute distress currently on O2 2 L nasal cannula. HEENT: Head is atraumatic, normocephalic. Pupils equal, round. Sclerae is anicteric, mucous membranes of the mouth are somewhat dry. NECK: Supple. No JVD. No lymphadenopathy. No thyromegaly, decreased carotid upstrokes bilaterally. Chest: decrease breath sounds at the bases with scattered rhonchi,minimal expiratory wheezes, no chest wall tenderness minimal intercostal retractions. Heart: first heart sound is depressed second heart sound is normal there FLORY 2/6 located at the left sternal border, irregularly irregular due to atrial fibri llation. Rate is controlled. ABDOMEN: Soft, nontender, nondistended, positive bowel sounds, no hepa tosplenomegaly. EXTREMITIES: +2 pedal edema. No calf tenderness. Dorsalis pedis +1 bilaterally. NEUROLOGICAL: Patient is awake, alert and oriented x3. Cranial nerves 2 through 12 are grossly intact muscle christopher 4 out of 5 in upper and lower extremities bilaterally., ASSESSMENT AND PLAN 1. Acute Hypoxemic respiratory failure due to COPD exacerbation with possible gram negative pneumonia along with diastolic heart failure. Discontinue Solu- Medrol, Zosyn 3.375 gr IVPB Q 8 hours, and continue Levaquin, we will continue with NEB treatment and O2 support, discontinue IV Lasix due to the GI bleed. 2. Lower GI bleed. Eliquis remains on hold. IV fluids decreased to 50 ML's per hour. Patient is status post 1 unit of packed RBCs. Patient is scheduled for EGD colonoscopy today with Dr. Hay. Continue to monitor hemoglobin closely. 2. Atrial fibrillation w/RVR, paroxysmal. Patient currently in A. fib. Continue Digoxin 62.5 mcg orally Tuesday through Tuesday, Cardizem CD 360 mg orally daily, Metoprolol 100 mg orally bid, discontinue Eliquis 3. Acute exacerbation of COPD with a prior history of COVID-19 pneumonia. Continue DuoNeb 3 mL nebulization 4 times every day, Symbicort 2 puffs twice daily, oxygen at 3 L nasal cannula adjust for saturation 92-93%, pulmonary consultation appreciated. 4. Hypertension and hypertensive cardiovascular disease. Continue metoprolol. 5. Hyperlipidemia. Continue Lipitor 20 mg orally daily. 6. Acute on chronic diastolic heart failure. 7. 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 we will continue with above treatment. 8. GERD. we will continue with Protonix 40 mg IV push every 12 hours 9. CAD. Continue Lipitor 20 mg orally daily and Imdur 15 mg orally daily. 10. Diabetes mellitus type 2. we will hold metformin and Farxiga, we will start sliding scale insulin. 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 we will hold off Residronate. 12. DVT prophylaxis. Hold off Eliquis. 13. GI Prophylaxis. we will continue with protonix 40 mg IV push every 12 hours 14. Guarded prognosis. 15. Patient is full code. Discharge plan Home Impression and plan of care have been directed as dictated by the signing physician. Noelle Gilbert nurse practitioner acting as scribe for signing physician. Objective - Vital Signs Vital signs: Vital Signs Temp 98.0 F 07/21/21 08:00 Pulse 79 07/21/21 08:00 Resp 16 07/21/21 08:00 BP 115/62 07/21/21 08:00 Pulse Ox 90 L 07/21/21 08:00 Intake & Output 07/20/21 07/21/21 07/21/21 18:59 06:59 18:59 Intake Total 1560 Balance 1560 Intake: Oral 1560 Other: Voiding Method Bedside Commode # Voids 1 # Bowel Movements 1 1 - Labs CBC & Chem 7: 07/21/21 04:34 07/21/21 04:34 Labs: Abnormal Lab Results - Last 24 Hours (Table) 07/20/21 07/20/21 07/21/21 Range/Units 10:33 10:33 04:34 RBC 2.86 L (3.80-5.40) m/uL Hgb 8.8 L (11.4-16.0) gm/dL Hct 27.4 L (34.0-46.0) % RDW 15.9 H (11.5-15.5) % Sodium 136 L (137-145) mmol/L Potassium 2.9 L 3.2 L (3.5-5.1) mmol/L Carbon Dioxide 33 H 31 H (22-30) mmol/L Glucose 114 H (74-99) mg/dL Calcium 6.5 L 6.2 L* (8.4-10.2) mg/dL
[2021-07-21] MEDS ORDERED: CALCIUM GLUCONATE 2 GM in SODIUM CHLORIDE 0.9% 100 ML IVPB ONE (11:00)
--- NOTE | 2021-07-21 11:18 | P.PCN ---
Date of Procedure: 07/21/21 Procedure(s) Performed: PREOPERATIVE DIAGNOSIS: GI bleed POSTOPERATIVE DIAGNOSIS: Minimal gastritis, diverticulosis PROCEDURE: 1. EGD with biopsy 2. Colonoscopy ANESTHESIA: MAC SURGEON: Curtis Hay M.D. SPECIMENS: None ENDOSCOPIC PROCEDURE: The patient was on the endoscopy table in the left decubitus position. The Olympus gastroscope was inserted into the oropharynx and passed under direct visualization to the region of the third portion of the duodenum. From that point the scope was slowly withdrawn inspecting all surfaces carefully. There were no neoplastic inflammatory or polypoid lesions throughout the duodenum. The pylorus was widely patent. The stomach was carefully inspected. There was minimal gastritis present. Retroflexion revealed a normal hiatus. The esophagus was then carefully examined. There were no neoplastic inflammatory or polypoid lesions throughout the visualized esophagus. The patient was kept on the endoscopy table in the left decubitus position. The Olympus colonoscope was inserted into the anus and passed under direct visualization to the base of the cecum. The appendiceal orifice was visualized. From that point the scope was slowly withdrawn inspecting all surfaces carefully. There were no neoplastic inflammatory or polypoid lesions throughout the cecum, ascending, transverse, descending, sigmoid and rectum. There was moderate scattered diverticulosis noted primarily involving the left colon. There was no blood present within the lumen of the colon. Retroflexion at the anus was normal. Digital rectal examination was normal. The patient was taken to the recovery room in stable condition per anesthesia guidelines. RECOMMENDATIONS: Resume diet. Source of bleeding most likely diverticular or perianal in etiology. Endoscopic findings discussed with patient's daughter Tameka by phone.
--- NOTE | 2021-07-21 11:20 | P.PN ---
Subjective Progress Note Date: 07/21/21 HISTORY OF PRESENT ILLNESS: This is an 89-year-old female who follows in the office with Dr. Pina. Patient has a past medical history of chronic persistent atrial fibrillation, chronic hypoxic respiratory failure with home O2, chronic diastolic congestive heart failure, COPD, hypertension, sick sinus syndrome with dual-chamber pacemaker in 2018, and former nicotine dependence. Patient is admitted to the hospital secondary to COPD, possible pneumonia, and lower GI bleed. Patient's Eliquis remains on hold. Patient is scheduled to undergo EGD and colonoscopy today. Telemetry reveals atrial fibrillation with a heart rate around 140. Echocardiogram completed revealing ejection fraction 55-60%, mild aortic regurgitation, moderate aortic stenosis, mild mitral regurgitation, and mild tricuspid regurgitation. 07/21/2021 Patient examined this morning at the bedside. Patient denies chest pain or pressure. She denies shortness of breath. Patient remains in atrial fibrilla tion with a heart rate in the 90s. She is scheduled for EGD and colonoscopy today. PHYSICAL EXAM: VITAL SIGNS: Reviewed. GENERAL: Well-developed in no acute distress. NECK: Supple. No JVD or thyromegaly LUNGS: Respirations even and unlabored. Lungs essentially clear to auscultation bilaterally. HEART: Tachycardic. Irregular rate and rhythm. S1 and S2 heard. EXTREMITIES: Normal range of motion. No clubbing or cyanosis. Peripheral pulses intact. No lower extremity edema ASSESSMENT: COPD exacerbation Acute on chronic hypoxic respiratory failure Possible pneumonia Lower GI bleed with acute blood loss anemia Chronic persistent atrial fibrillation with RVR Chronic diastolic congestive heart failure Hypertension Hyperlipidemia Diabetes Sick sinus syndrome with dual-chamber pacemaker implantation in 2018 Former nicotine dependence PLAN: Patient is cleared from a cardiac standpoint to undergo EGD and colonoscopy today Continue to hold Eliquis Continue cardiac current medications Continue telemetry monitoring Further recommendations pending patient course Nurse practitioner note has been reviewed by physician. Signing provider agrees with the documented findings, assessment, and plan of care. Objective - Vital Signs Vital signs: Vital Signs Temp 98.0 F 07/21/21 08:00 Pulse 82 07/21/21 08:42 Resp 16 07/21/21 08:00 BP 115/62 07/21/21 08:00 Pulse Ox 90 L 07/21/21 08:00 Intake & Output 07/20/21 07/21/21 07/21/21 18:59 06:59 18:59 Intake Total 1560 200 Balance 1560 200 Intake: IV 200 Oral 1560 Other: Voiding Method Bedside Commode # Voids 1 # Bowel Movements 1 1 - Labs CBC & Chem 7: 07/21/21 04:34 07/21/21 04:34 Labs: Abnormal Lab Results - Last 24 Hours (Table) 07/20/21 07/20/21 07/21/21 Range/Units 10:33 10:33 04:34 RBC 2.86 L (3.80-5.40) m/uL Hgb 8.8 L (11.4-16.0) gm/dL Hct 27.4 L (34.0-46.0) % MCHC (32.0-37.0) g/dL RDW 15.9 H (11.5-15.5) % Absolute Nucleated RBC (0.00-0.00) X 10*3/uL NRBC/100 WBC Diff (0.0-0.0) /100 WBCS Sodium 136 L (137-145) mmol/L Potassium 2.9 L 3.2 L (3.5-5.1) mmol/L Carbon Dioxide 33 H 31 H (22-30) mmol/L Glucose 114 H (74-99) mg/dL Calcium 6.5 L 6.2 L* (8.4-10.2) mg/dL 07/21/21 Range/Units 04:34 RBC 2.68 L (3.80-5.40) m/uL Hgb 8.0 L (11.4-16.0) gm/dL Hct 25.7 L (34.0-46.0) % MCHC 31.1 L (32.0-37.0) g/dL RDW 15.9 H (11.5-15.5) % Absolute Nucleated RBC 0.04 H (0.00-0.00) X 10*3/uL NRBC/100 WBC Diff 0.5 H (0.0-0.0) /100 WBCS Sodium (137-145) mmol/L Potassium (3.5-5.1) mmol/L Carbon Dioxide (22-30) mmol/L Glucose (74-99) mg/dL Calcium (8.4-10.2) mg/dL
[2021-07-21] MEDS: DILTIAZEM CD 180 MG CAP.ER.24H PO SCH (11:47)
[2021-07-21] MEDS: LEVOFLOXACIN 250MG-D5W PMX 250 MG in DEXTROSE/WATER 1 50ML.BAG IVPB SCH ×3 (19:12→22:14)
[2021-07-21] MEDS: ATORVASTATIN 20 MG TAB PO SCH (20:31)
[2021-07-21] MEDS: MAGNESIUM CITRATE 296 ML BOTTLE PO SCH (21:04)
[2021-07-22] MEDS: PIPERACILLIN-TAZOBACTAM 3.375 GM in SODIUM CHLORIDE 0.9% 100 ML IVPB SCH ×3 (00:15→15:48)
[2021-07-22] MEDS: DIGOXIN 125 MCG TAB PO SCH (07:33)
[2021-07-22] MEDS ORDERED: FUROSEMIDE 10 MG/ML 4 ML VIAL IV STA (08:24)
[2021-07-22 08:36] LABS: HCT 29.9 % (34.0-46.0); HGB 9.4 gm/dL (11.4-16.0); Hypochromasia Marked; MCH 30.7 pg (25.0-35.0); MCHC 31.6 g/dL (31.0-37.0); MCV 97.3 fL (80.0-100.0); Mean Platelet Volume 7.3; Platelet Count 237 k/uL (150-450); Poikilocytosis Slight; RBC 3.07 m/uL (3.80-5.40); RDW 15.7 % (11.5-15.5); WBC 11.1 k/uL (3.8-10.6)
[2021-07-22] MEDS ORDERED: FUROSEMIDE 10 MG/ML 4 ML VIAL IV SCH (09:00)
[2021-07-22] MEDS: SYMBICORT 160-4.5 MCG INHALER INHALATION SCH ×2 (09:05→19:19)
[2021-07-22] MEDS: IPRATROPIUM-ALBUTEROL 3 ML NEB INHALATION SCH ×4 (09:05→19:19)
[2021-07-22 09:15] LABS: African American GFR (CKD) 73 (>60 ml/min/1.73 sqM); Anion Gap 3 mmol/L; Blood Urea Nitrogen 7 mg/dL (7-17); Calcium 6.7 mg/dL (8.4-10.2); Carbon Dioxide 26 mmol/L (22-30); Chloride 107 mmol/L (98-107); Glucose 104 mg/dL (74-99); Non-African American GFR(CKD) 64 (>60 ml/min/1.73 sqM); Potassium 3.8 mmol/L (3.5-5.1); Sodium 136 mmol/L (137-145)
--- NOTE | 2021-07-22 10:04 | P.PN ---
Subjective Progress Note Date: 07/22/21 HISTORY OF PRESENT ILLNESS: This is an 89-year-old female who follows in the office with Dr. Pina. Patient has a past medical history of chronic persistent atrial fibrillation, chronic hypoxic respiratory failure with home O2, chronic diastolic congestive heart failure, COPD, hypertension, sick sinus syndrome with dual-chamber pacemaker in 2018, and former nicotine dependence. Patient is admitted to the hospital secondary to COPD, possible pneumonia, and lower GI bleed. Patient's Eliquis remains on hold. Patient is scheduled to undergo EGD and colonoscopy today. Telemetry reveals atrial fibrillation with a heart rate around 140. Echocardiogram completed revealing ejection fraction 55-60%, mild aortic regurgitation, moderate aortic stenosis, mild mitral regurgitation, and mild tricuspid regurgitation. 07/21/2021 Patient examined this morning at the bedside. Patient denies chest pain or pressure. She denies shortness of breath. Patient remains in atrial fibrilla tion with a heart rate in the 90s. She is scheduled for EGD and colonoscopy today. 07/22/2021 Patient examined this morning. She is sitting up in the chair. She underwent EGD and colonoscopy yesterday. Source of bleeding likely diverticular or. Anal and etiology per surgery. Patient's Eliquis remains on hold. The patient does report shortness of breath this morning. She does appear to be volume overloaded. She was started on IV fluids per internal medicine this morning. PHYSICAL EXAM: VITAL SIGNS: Reviewed. GENERAL: Well-developed in no acute distress. NECK: Supple. No JVD or thyromegaly LUNGS: Respirations even and unlabored. Lungs essentially clear to auscultation bilaterally. HEART: Tachycardic. Irregular rate and rhythm. S1 and S2 heard. EXTREMITIES: Normal range of motion. No clubbing or cyanosis. Peripheral pulses intact. No lower extremity edema ASSESSMENT: COPD exacerbation Acute on chronic hypoxic respiratory failure Possible pneumonia Lower GI bleed with acute blood loss anemia Chronic persistent atrial fibrillation with RVR Acute on chronic Chronic diastolic congestive heart failure Hypertension Hyperlipidemia Diabetes Sick sinus syndrome with dual-chamber pacemaker implantation in 2018 Former nicotine dependence PLAN: Agreeable to IV Lasix. Accurate I&O. Daily weights Eliquis remains on hold. Will speak with surgery team regarding timing of resuming Eliquis Continue cardiac current medications Continue telemetry monitoring Further recommendations pending patient course Nurse practitioner note has been reviewed by physician. Signing provider agrees with the documented findings, assessment, and plan of care. Objective - Vital Signs Vital signs: Vital Signs Temp 97.4 F L 07/22/21 06:46 Pulse 88 07/22/21 06:46 Resp 20 07/22/21 06:46 BP 143/74 07/22/21 06:46 Pulse Ox 98 07/22/21 06:46 Intake & Output 07/21/21 07/22/21 07/22/21 18:59 06:59 18:59 Intake Total 1280 Output Total 800 Balance 1280 -800 Intake: IV 200 Oral 1080 Output: Urine 800 Other: Voiding Method Bedside Commode # Voids 1 2 # Bowel Movements 1 1 - Labs CBC & Chem 7: 07/22/21 08:08 07/22/21 08:08 Labs: Abnormal Lab Results - Last 24 Hours (Table) 07/22/21 07/22/21 Range/Units 08:08 08:08 WBC 11.1 H (3.8-10.6) k/uL RBC 3.07 L (3.80-5.40) m/uL Hgb 9.4 L (11.4-16.0) gm/dL Hct 29.9 L (34.0-46.0) % RDW 15.7 H (11.5-15.5) % Sodium 136 L (137-145) mmol/L Glucose 104 H (74-99) mg/dL Calcium 6.7 L (8.4-10.2) mg/dL
[2021-07-22] MEDS: METOPROLOL TARTRATE 50 MG TAB PO SCH ×2 (10:52→21:15)
[2021-07-22] MEDS: ISOSORBIDE MONONITRATE ER 15 MG TAB PO SCH (10:52)
[2021-07-22] MEDS: PANTOPRAZOLE 40 MG/10 ML VIAL IVP SCH ×2 (10:53→21:15)
[2021-07-22] MEDS: predniSONE 10 MG TAB PO SCH (10:53)
[2021-07-22] MEDS: DILTIAZEM CD 180 MG CAP.ER.24H PO SCH (12:20)
--- NOTE | 2021-07-22 12:37 | XR ---
EXAMINATION TYPE: XR chest 1V portable DATE OF EXAM: 07/22/2021 COMPARISON: 07/17/2021 INDICATION: CHF TECHNIQUE: Single frontal view of the chest is obtained. FINDINGS: The heart size is normal. The pulmonary vasculature is normal. Bibasilar infiltrates are present. IMPRESSION: 1. Mild bibasilar infiltrates, similar to comparison study.
--- NOTE | 2021-07-22 15:23 | P.PN ---
<Yenifer Vaca - Last Filed: 07/22/21 15:20> Subjective Progress Note Date: 07/22/21 CHIEF COMPLAINT: GI bleed HISTORY OF PRESENT ILLNESS: 89-year-old female who presented to the emergency department on 07/17/2021 with complaints of weakness. She had been recently admitted to the hospital for a lower GI bleed. She has a history of atrial fibrillation on Eliquis. During the last hospitalization and was put on hold however she resumed it Tuesday prior to coming in. Hemoglobin on admission was 9.8. Yesterday she underwent an EGD and colonoscopy that showed minimal gastritis and diverticulosis. Suspected source of blood loss was a diverticular bleed which was no longer active. Today's repeat hemoglobin was 9.4 up from 8.0 yesterday. She reports no bleeding and no bowel movement. She denies abdominal pain, nausea, or vomiting. She is passing flatus. She's been tolerating a jared ar liquid diet. PHYSICAL EXAM: VITAL SIGNS: Reviewed. GENERAL: Well-developed in no acute distress. HEENT: No sclera icterus. Extraocular movements grossly intact. Moist buccal mucosa. Head is atraumatic, normocephalic. ABDOMEN: Soft. Nondistended. Nontender. NEUROLOGIC: Alert and oriented. Cranial nerves II through XII grossly intact. ASSESSMENT: 1. GI bleed, status post EGD and colonoscopy with findings on EGD of gastritis and diverticulosis and colonoscopy. Likely GI blood loss from diverticular bleed. 2. Normochromic normocytic anemia 3. Atrial fibrillation on Eliquis, currently on hold PLAN: 1. Status post EGD and colonoscopy 2. Regular diet 3. Anticoagulation to be resumed per primary medicine recommendations 4. Repeat CBC in the morning The impression and plan of care has been dictated as directed. I performed a history and examination of this patient, discussed the same with the dictator. I agree with the dictator's note ,documented as a scribe. Any additional findings or plans will be noted. Objective - Vital Signs Vital signs: Vital Signs Temp 97.3 F L 07/22/21 14:00 Pulse 90 07/22/21 14:00 Resp 14 07/22/21 14:00 BP 115/72 07/22/21 14:00 Pulse Ox 100 07/22/21 14:00 Intake & Output 07/21/21 07/22/21 07/22/21 18:59 06:59 18:59 Intake Total 1280 240 Output Total 800 800 Balance 1280 -800 -560 Intake: IV 200 Oral 1080 240 Output: Urine 800 800 Other: Voiding Method Bedside Commode Bedside Commode # Voids 1 2 # Bowel Movements 1 1 - Labs CBC & Chem 7: 07/22/21 08:08 07/22/21 08:08 Labs: Abnormal Lab Results - Last 24 Hours (Table) 07/22/21 07/22/21 Range/Units 08:08 08:08 WBC 11.1 H (3.8-10.6) k/uL RBC 3.07 L (3.80-5.40) m/uL Hgb 9.4 L (11.4-16.0) gm/dL Hct 29.9 L (34.0-46.0) % RDW 15.7 H (11.5-15.5) % Sodium 136 L (137-145) mmol/L Glucose 104 H (74-99) mg/dL Calcium 6.7 L (8.4-10.2) mg/dL <Curtis Hay - Last Filed: 07/22/21 17:57> Subjective I have personally seen and examined the patient, reviewed the FI[employer] MARKET[employer]IST /PAs history, exam and MDM and agree with the assessment and plan as written. Based on total visit time, I have performed more than 50% of the visit. As above. Patient doing well today. No further bleeding seen. Resume anticoagulation per Dr. Gutiérrez. We'll sign off. Call if needed. Objective - Vital Signs Vital signs: Vital Signs Temp 97.3 F L 07/22/21 14:00 Pulse 78 07/22/21 17:18 Resp 14 07/22/21 14:00 BP 115/72 07/22/21 14:00 Pulse Ox 100 07/22/21 14:00 Intake & Output 07/21/21 07/22/21 07/22/21 18:59 06:59 18:59 Intake Total 1280 240 Output Total 800 800 Balance 1280 -800 -560 Intake: IV 200 Oral 1080 240 Output: Urine 800 800 Other: Voiding Method Bedside Commode Bedside Commode # Voids 1 2 # Bowel Movements 1 1 - Labs CBC & Chem 7: 07/22/21 08:08 07/22/21 08:08 Labs: Abnormal Lab Results - Last 24 Hours (Table) 07/22/21 07/22/21 Range/Units 08:08 08:08 WBC 11.1 H (3.8-10.6) k/uL RBC 3.07 L (3.80-5.40) m/uL Hgb 9.4 L (11.4-16.0) gm/dL Hct 29.9 L (34.0-46.0) % RDW 15.7 H (11.5-15.5) % Sodium 136 L (137-145) mmol/L Glucose 104 H (74-99) mg/dL Calcium 6.7 L (8.4-10.2) mg/dL
--- NOTE | 2021-07-22 15:24 | P.PN ---
Subjective Progress Note Date: 07/22/21 HISTORY OF PRESENT ILLNESS This is an 89-year old- female patient of mine with a previous medical history significant for hypertension and hypertensive cardiovascular disease, hyperlipidemia, Paroxysmal atrial fibrillation, 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 Was recently discharged from [facility] after she was admitted for lower GI bleed and she did receive one units of PRBC and her hemoglobin was stable after she was taken off Eliquis on the discharge she was at 11.5, then she restarted Eliquis on Tuesday and since she was discharged from the hospital she has been complaining of significant polyuria and going to the bathroom all night long, she felt exhausted and not able to keep up with her fluid intake, [facility]NA went to see the patient today and she was comlaining of lethargy and increased shortness of breath, she was sent in by EMS to the ER at [facility] for evaluation, BGM was 140, the rest of the labs were relatively stable, her hemoglobin was down to 9.9 and she was having significant expiratory wheezes, CXR did show possible worsening infiltrate, and BNP slightly elevated, nothing drastic , she is already on home O2, but because of the presentation she was started on IV Levaquin 250 mg IVPB daily along with Zosyn a nd Slu-Medrol 40 mg IVP Q 8 hours, lasix 40 mg IVP Q 12 hours, pulmonary and cardiology consult. While the patient was in the emergency department she did have a large bowel movement that was bloody with about 250 mL of fresh blood, patient apparently is having a lower GI bleed, transfer the patient to the intensive care unit, type and cross and transfuse 1 unit of packed red blood cells, consult general surgery Dr. Hay, monitor the patient's CBC every 6 hours, keep the patient the ER until a bed becomes available in the intensive care unit. 07/18: Patient is laying down in bed she had multiple episodes of bright red blood per rectum since last night, and a team was called and the patient as the patient heart rate 1 250 she did receive adenosine, she did receive metoprolol 50 mg orally and top of her metoprolol that she is taking, she was taken off Eliquis, she was given 1 unit of packed red blood cells, her hemoglobin is stable at 9, patient will be transferred to the ICU, the plan is to have an EGD and colonoscopy hopefully on Tuesday keep the patient on nothing per mouth for n ow. 07/19: Patient is laying down in bed in no apparent distress, her hemoglobin is 9.5 today after blood transfusion, no more GI bleed at this time, I spoke with general surgery about planning for EGD tomorrow morning because of patient's chronic anticoagulations due to chronic atrial fibrillation, continue Protonix 40 mg IV push every 12 hours, continue to monitor hemoglobin over the next 24 hours, continue oxygen support, blood pressure some marginal metoprolol was discontinued and the patient was started back on Cardizem 360 mg orally once every day, we'll follow the patient very closely. 07/20: Patient is seen today resting in recliner and appears to be quite tired. She had good results from the prep last night. EGD and colonoscopy today. She denies any abdominal pain and did not notice if there was any blood in her bowel movements last evening. Heart rate is elevated and she will receive her beta tai, Cardizem. Patient is followed by cardiology and pulmonary medicine . Patient is quite dry this morning and will be given a bolus of 200 mL followed by 75 mL per hour. Patient is afebrile, heart rate 142, blood pressure 105/66, pulse ox 100% on 2 L nasal cannula. sensitized paper tester atrial fibrillation. Hemoglobin is 9.2, WBC 13.9. Echocardiogram reveals EF of 55-60% with borderline concentric left ventricular hypertrophy, mild aortic regurgitation, moderate aortic stenosis, mild mitral regurgitation, mild tricuspid regurgitation, mild pulmonary hypertension, RVSP 34.73 mmHg. 07/21: Endoscopy was post poned until today. Hemoglobin 8. Potassium 3.2 and will be replaced. Calcium 6.2 and will be replaced with 2 g of calcium gluconate. Patient has been afebrile, heart rate 79, blood pressure 115/62, pulse ox 90-100 on 2 L nasal cannula. sensitized paper tester is atrial fibrillation, controlled rate. Heart rate has been running in the 70s overnight. IV fluids decreased to 50 ML's per hour. 07/22: Patient underwent EGD with biopsy and colonoscopy with Dr. Hay 07/21 finding minimal gastritis and diverticulosis. Source of bleeding most likely diverticular or perianal in etiology. Patient was cleared to resume diet. Hemoglobin 9.4, WBC 11.1. Sodium 136 otherwise electrolytes and renal function normal. Patient noted to have significant edema to the arms and legs. Chest x- ray reveals mild bibasilar infiltrates similar to comparison study. Patient started on IV Lasix subsequently discontinued by cardiology and switched to oral. Anticipate probable discharge home tomorrow. REVIEW OF SYSTEMS Constitutional: no fever no chills, no night sweats. No weight change. Reports weakness, Reports fatigue no lethargy. No daytime sleepiness. HEENT: No headache. No blurred vision or double vision, no loss of vision. No loss of Hearing, no ringing in the ears, no dizziness. No nasal drainage or congestion. No epistaxis. No sore throat, no loss of taste Lungs: Denies shortness of breath, minimal cough, no sputum production. Denies wheezing. Cardiovascular: No chest pain,positive for lower extremity edema. positive for palpitations. No paroxysmal nocturnal dyspnea. No orthopnea. No lightheadedness or dizziness. No syncopal episodes. Abdominal: No abdominal pain. No nausea, vomiting. No diarrhea. No consti pation. Denies bloody or tarry stools.. No loss of appetite. Genitourinary: No dysuria, increased frequency, urgency. No urinary retention. Musculoskeletal: No myalgias. positive for muscle weakness, no gait dysfunction, no frequent falls. No back pain. No neck pain. Integumentary: No wounds, no lesions. No rash or pruritus. No unusual bruising. Neurologic: No aphasia. No facial droop. No change in mentation. No head injury. No headache. No paralysis. No paresthesia. Psychiatric: No depression. No anxiety. No mood swings. Endocrine: No abnormal blood sugars. PHYSICAL EXAMINATION Gen: This is an 89-year-old female, resting in bed in no acute distress currently on O2 2 L nasal cannula. HEENT: Head is atraumatic, normocephalic. Pupils equal, round. Sclerae is anicteric, mucous membranes of the mouth are somewhat dry. NECK: Supple. No JVD. No lymphadenopathy. No thyromegaly, decreased carotid upstrokes bilaterally. Chest: decrease breath sounds at the bases with scattered rhonchi,minimal expiratory wheezes, no chest wall tenderness minimal intercostal retractions. Heart: first heart sound is depressed second heart sound is normal there FLORY 2/6 located at the left sternal border, irregularly irregular due to atrial fibrillation. Rate is controlled. ABDOMEN: Soft, nontender, nondistended, positive bowel sounds, no hepatosplenome sena. EXTREMITIES: +2 pedal edema. No calf tenderness. Dorsalis pedis +1 bilaterally. NEUROLOGICAL: Patient is awake, alert and oriented x3. Cranial nerves 2 through 12 are grossly intact muscle christopher 4 out of 5 in upper and lower extremities bilaterally., ASSESSMENT AND PLAN 1. Acute Hypoxemic respiratory failure due to COPD exacerbation with possible gram negative pneumonia along with diastolic heart failure. Discontinue Solu- Medrol, tinea Zosyn 3.375 gr IVPB Q 8 hours, and continue Levaquin, we will continue with NEB treatment and O2 support, IV Lasix 40 mg 1, oral 40 mg twice daily.. 2. Acute with acute blood loss anemia due to acute GI bleed possibly diverticular bleed status post EGD and colonoscopy. Continue to hold eliquis, discontinue IV fluids. Patient is status post 1 unit of packed RBCs. Patient is scheduled for EGD colonoscopy today with Dr. Hay. Continue to monitor hemoglobin closely. 2. Atrial fibrillation w/RVR, paroxysmal. Patient currently in A. fib. Continue Digoxin 62.5 mcg orally Tuesday through Tuesday, Cardizem CD 360 mg orally daily, Metoprolol 100 mg orally bid, hold Eliquis 3. Acute exacerbation of COPD with a prior history of COVID-19 pneumonia. Continue DuoNeb 3 mL nebulization 4 times every day, Symbicort 2 puffs twice daily, oxygen at 3 L nasal cannula adjust for saturation 92-93%, pulmonary cons ultation appreciated. 4. Hypertension and hypertensive cardiovascular disease. Continue metoprolol. 5. Hyperlipidemia. Continue Lipitor 20 mg orally daily. 6. Acute on chronic diastolic heart failure. 7. 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 we will continue with above treatment. 8. GERD. we will continue with Protonix 40 mg IV push every 12 hours 9. CAD. Continue Lipitor 20 mg orally daily and Imdur 15 mg orally daily. 10. Diabetes mellitus type 2. we will hold metformin and Farxiga, we will start sliding scale insulin. 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 we will hold off Residronate. 12. DVT prophylaxis. Hold off Eliquis. 13. GI Prophylaxis. we will continue with protonix 40 mg IV push every 12 hours 14. Guarded prognosis. 15. Patient is full code. Discharge plan Home tomorrow Impression and plan of care have been directed as dictated by the signing physician. Noelle Gilbert nurse practitioner acting as scribe for signing physician. Objective - Vital Signs Vital signs: Vital Signs Temp 97.4 F L 07/22/21 06:46 Pulse 88 07/22/21 06:46 Resp 20 07/22/21 06:46 BP 143/74 07/22/21 06:46 Pulse Ox 98 07/22/21 06:46 Intake & Output 07/21/21 07/22/21 07/22/21 18:59 06:59 18:59 Intake Total 1280 Output Total 800 Balance 1280 -800 Intake: IV 200 Oral 1080 Output: Urine 800 Other: Voiding Method Bedside Commode # Voids 1 2 # Bowel Movements 1 1 - Labs CBC & Chem 7: 07/22/21 08:08 07/22/21 08:08 Labs: Abnormal Lab Results - Last 24 Hours (Table) 07/21/21 07/22/21 Range/Units 04:34 08:08 WBC 11.1 H (3.8-10.6) k/uL RBC 2.68 L 3.07 L (4.10-5.20) X 10*6/uL Hgb 8.0 L 9.4 L (12.0-15.0) g/dL Hct 25.7 L 29.9 L (37.2-46.3) % MCHC 31.1 L (32.0-37.0) g/dL RDW 15.9 H 15.7 H (11.5-14.5) % Absolute Nucleated RBC 0.04 H (0.00-0.00) X 10*3/uL NRBC/100 WBC Diff 0.5 H (0.0-0.0) /100 WBCS
[2021-07-22] MEDS: FUROSEMIDE 40 MG TAB PO SCH (15:48)
[2021-07-22] MEDS: MAGNESIUM CITRATE 296 ML BOTTLE PO SCH (21:10)
[2021-07-22] MEDS: LEVOFLOXACIN 250MG-D5W PMX 250 MG in DEXTROSE/WATER 1 50ML.BAG IVPB SCH (21:15)
[2021-07-22] MEDS: ATORVASTATIN 20 MG TAB PO SCH (21:15)
[2021-07-22] MEDS: SODIUM CHLORIDE 0.9% 1,000 ML IV SCH (21:15)
[2021-07-23] MEDS: PIPERACILLIN-TAZOBACTAM 3.375 GM in SODIUM CHLORIDE 0.9% 100 ML IVPB SCH ×4 (00:28→23:26)
[2021-07-23] MEDS: SODIUM CHLORIDE 0.9% 1,000 ML IV SCH ×2 (00:31→21:41)
[2021-07-23] MEDS: IPRATROPIUM-ALBUTEROL 3 ML NEB INHALATION SCH ×4 (08:05→20:28)
[2021-07-23] MEDS: SYMBICORT 160-4.5 MCG INHALER INHALATION SCH ×2 (08:06→20:28)
[2021-07-23] MEDS: PANTOPRAZOLE 40 MG/10 ML VIAL IVP SCH ×2 (08:47→20:05)
[2021-07-23] MEDS: DIGOXIN 125 MCG TAB PO SCH (08:48)
[2021-07-23] MEDS: FUROSEMIDE 40 MG TAB PO SCH ×2 (08:48→17:32)
[2021-07-23] MEDS: predniSONE 10 MG TAB PO SCH (08:48)
[2021-07-23] MEDS: METOPROLOL TARTRATE 50 MG TAB PO SCH ×2 (08:48→20:05)
[2021-07-23] MEDS: ISOSORBIDE MONONITRATE ER 15 MG TAB PO SCH (08:48)
--- NOTE | 2021-07-23 09:21 | P.PN ---
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 Was recently discharged from [facility] after she was admitted for lower GI bleed and she did receive one units of PRBC and her hemoglobin was stable after she was taken off Eliquis on the discharge she was at 11.5, then she restarted Eliquis on Tuesday and since she was discharged from the hospital she has been complaining of significant polyuria and going to the bathroom all night long, she felt exhausted and not able to keep up with her fluid intake, [facility] went to see the patient today and she was comlaining of lethargy and increased shortness of breath, she was sent in by EMS to the ER at [facility] for evaluation, BGM was 140, the rest of the labs were relatively stable, her hemoglobin was down to 9.9 and she was having significant expiratory wheezes, CXR did show possible worsening infiltrate, and BNP slightly elevated, nothing drastic , she is already on home O2, but because of the presentation she was started on IV Levaquin 250 mg IVPB daily along with Zosyn a nd Slu-Medrol 40 mg IVP Q 8 hours, lasix 40 mg IVP Q 12 hours, pulmonary and cardiology consult. While the patient was in the emergency department she did have a large bowel movement that was bloody with about 250 mL of fresh blood, patient apparently is having a lower GI bleed, transfer the patient to the intensive care unit, type and cross and transfuse 1 unit of packed red blood cells, consult general surgery Dr. Hay, monitor the patient's CBC every 6 hours, keep the patient the ER until a bed becomes available in the intensive care unit. 07/18: Patient is laying down in bed she had multiple episodes of bright red blood per rectum since last night, and a team was called and the patient as the patient heart rate 1 250 she did receive adenosine, she did receive metoprolol 50 mg orally and top of her metoprolol that she is taking, she was taken off Eliquis, she was given 1 unit of packed red blood cells, her hemoglobin is stable at 9, patient will be transferred to the ICU, the plan is to have an EGD and colonoscopy hopefully on Tuesday keep the patient on nothing per mouth for n ow. 07/19: Patient is laying down in bed in no apparent distress, her hemoglobin is 9.5 today after blood transfusion, no more GI bleed at this time, I spoke with general surgery about planning for EGD tomorrow morning because of patient's chronic anticoagulations due to chronic atrial fibrillation, continue Protonix 40 mg IV push every 12 hours, continue to monitor hemoglobin over the next 24 hours, continue oxygen support, blood pressure some marginal metoprolol was discontinued and the patient was started back on Cardizem 360 mg orally once every day, we'll follow the patient very closely. 07/20: Patient is seen today resting in recliner and appears to be quite tired. She had good results from the prep last night. EGD and colonoscopy today. She denies any abdominal pain and did not notice if there was any blood in her bowel movements last evening. Heart rate is elevated and she will receive her beta tai, Cardizem. Patient is followed by cardiology and pulmonary medicine . Patient is quite dry this morning and will be given a bolus of 200 mL followed by 75 mL per hour. Patient is afebrile, heart rate 142, blood pressure 105/66, pulse ox 100% on 2 L nasal cannula. athletic monitor atrial fibrillation. Hemoglobin is 9.2, WBC 13.9. Echocardiogram reveals EF of 55-60% with borderline concentric left ventricular hypertrophy, mild aortic regurgitation, moderate aortic stenosis, mild mitral regurgitation, mild tricuspid regurgitation, mild pulmonary hypertension, RVSP 34.73 mmHg. 07/21: Endoscopy was post poned until today. Hemoglobin 8. Potassium 3.2 and will be replaced. Calcium 6.2 and will be replaced with 2 g of calcium gluconate. Patient has been afebrile, heart rate 79, blood pressure 115/62, pulse ox 90-100 on 2 L nasal cannula. athletic monitor is atrial fibrillation, controlled rate. Heart rate has been running in the 70s overnight. IV fluids decreased to 50 ML's per hour. 07/22: Patient underwent EGD with biopsy and colonoscopy with Dr. Hay 07/21 finding minimal gastritis and diverticulosis. Source of bleeding most likely diverticular or perianal in etiology. Patient was cleared to resume diet. Hemoglobin 9.4, WBC 11.1. Sodium 136 otherwise electrolytes and renal function normal. Patient noted to have significant edema to the arms and legs. Chest x- ray reveals mild bibasilar infiltrates similar to comparison study. Patient started on IV Lasix subsequently discontinued by cardiology and switched to oral. Anticipate probable discharge home tomorrow. 07/23: She continues to have fluid retention and continued on Lasix 40 mg twice daily oral. Patient is tolerating a regular diet. Repeat blood work will be ordered for tomorrow. Respiratory status is stable. Plan medicine has signed off. Anticipate possible discharge the next 24 hours. REVIEW OF SYSTEMS Constitutional: no fever no chills, no night sweats. No weight change. Reports weakness, Reports fatigue no lethargy. No daytime sleepiness. HEENT: No headache. No blurred vision or double vision, no loss of vision. No loss of Hearing, no ringing in the ears, no dizziness. No nasal drainage or congestion. No epistaxis. No sore throat, no loss of taste Lungs: Denies shortness of breath, minimal cough, no sputum production. Denies wheezing. Cardiovascular: No chest pain,positive for lower extremity edema. positive for palpitations. No paroxysmal nocturnal dyspnea. No orthopnea. No lightheadedness or dizziness. No syncopal episodes. Abdominal: No abdominal pain. No nausea, vomiting. No diarrhea. No constipation. Denies bloody or tarry stools.. No loss of appetite. Genitourinary: No dysuria, increased frequency, urgency. No urinary retention. Musculoskeletal: No myalgias. positive for muscle weakness, no gait dysfunction, no frequent falls. No back pain. No neck pain. Integumentary: No wounds, no lesions. No rash or pruritus. No unusual bruising. Neurologic: No aphasia. No facial droop. No change in mentation. No head injury. No headache. No paralysis. No paresthesia. Psychiatric: No depression. No anxiety. No mood swings. Endocrine: No abnormal blood sugars. PHYSICAL EXAMINATION Gen: This is an 89-year-old female, resting in bed in no acute distres s currently on O2 2 L nasal cannula. HEENT: Head is atraumatic, normocephalic. Pupils equal, round. Sclerae is anicteric, mucous membranes of the mouth are somewhat dry. NECK: Supple. No JVD. No lymphadenopathy. No thyromegaly, decreased carotid upstrokes bilaterally. Chest: decrease breath sounds at the bases with scattered rhonchi,minimal expiratory wheezes, no chest wall tenderness minimal intercostal retractions. Heart: first heart sound is depressed second heart sound is normal there FLORY 2/6 located at the left sternal border, irregularly irregular due to atrial fibrillation. Rate is controlled. ABDOMEN: Soft, nontender, nondistended, positive bowel sounds, no hepatosplenomegaly. EXTREMITIES: +2 pedal edema. No calf tenderness. Dorsalis pedis +1 bilaterally. NEUROLOGICAL: Patient is awake, alert and oriented x3. Cranial nerves 2 through 12 are grossly intact muscle christopher 4 out of 5 in upper and lower extremities bilaterally., ASSESSMENT AND PLAN 1. Acute Hypoxemic respiratory failure due to COPD exacerbation with possible gram negative pneumonia along with diastolic heart failure. Discontinue Solu- Medrol, continue prednisone 10 mg daily, Zosyn 3.375 gr IVPB Q 8 hours will be completed today, and continue Levaquin, we will continue with NEB treatment and O2 support, continue Lasix oral 40 mg twice daily. 2. Acute with acute blood loss anemia due to acute GI bleed possibly diverticular bleed status post EGD and colonoscopy. Continue to hold eliquis, discontinue IV fluids. Patient is status post 1 unit of packed RBCs. Patient is scheduled for EGD colonoscopy today with Dr. Hay. Continue to monitor hemoglobin closely. 2. Atrial fibrillation w/RVR, paroxysmal. Patient currently in A. fib. Continue Digoxin 62.5 mcg orally Tuesday through Tuesday, Cardizem CD 360 mg orally daily, Metoprolol 100 mg orally bid, hold Eliquis 3. Acute exacerbation of COPD with a prior history of COVID-19 pneumonia. Continue DuoNeb 3 mL nebulization 4 times every day, Symbicort 2 puffs twice daily, oxygen at 3 L nasal cannula adjust for saturation 92-93%, pulmonary consultation appreciated. 4. Hypertension and hypertensive cardiovascular disease. Continue metoprolol. 5. Hyperlipidemia. Continue Lipitor 20 mg orally daily. 6. Acute on chronic diastolic heart failure. Into the oral Lasix 40 mg twice daily 7. 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 we will continue with above treatment. 8. GERD. we will continue with Protonix 40 mg IV push every 12 hours 9. CAD. Continue Lipitor 20 mg orally daily and Imdur 15 mg orally daily. 10. Diabetes mellitus type 2. we will hold metformin and Farxiga, we will start sliding scale insulin. 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 we will hold off Residronate. 12. DVT prophylaxis. Hold off Eliquis. 13. GI Prophylaxis. we will continue with protonix 40 mg IV push every 12 hours 14. Guarded prognosis. 15. Patient is full code. Discharge plan Home tomorrow Impression and plan of care have been directed as dictated by the signing physician. Noelle Gilbert nurse practitioner acting as scribe for signing physician. Objective - Vital Signs Vital signs: Vital Signs Temp 97.6 F 07/23/21 08:30 Pulse 70 07/23/21 08:30 Resp 17 07/23/21 08:30 BP 95/56 07/23/21 08:30 Pulse Ox 100 07/23/21 08:30 Intake & Output 07/22/21 07/23/21 07/23/21 18:59 06:59 18:59 Intake Total 340 236 Output Total 800 1300 Balance -460 -1300 236 Intake: Intake, IV Titration 100 Amount Piperacillin-Tazobactam 3 100 .375 gm In Sodium Chloride 0.9% 100 ml @ 25 mls/hr IVPB Q8HR [facility] Rx# :[id number] Oral 240 236 Output: Urine 800 1300 Other: Voiding Method Bedside Commode External Catheter - Labs CBC & Chem 7: 07/22/21 08:08 07/22/21 08:08
--- NOTE | 2021-07-23 11:57 | P.PN ---
Subjective Progress Note Date: 07/23/21 HISTORY OF PRESENT ILLNESS: This is an 89-year-old female who follows in the office with Dr. Pina. Patient has a past medical history of chronic persistent atrial fibrillation, chronic hypoxic respiratory failure with home O2, chronic diastolic congestive heart failure, COPD, hypertension, sick sinus syndrome with dual-chamber pacemaker in 2018, and former nicotine dependence. Patient is admitted to the hospital secondary to COPD, possible pneumonia, and lower GI bleed. Patient's Eliquis remains on hold. Patient is scheduled to undergo EGD and colonoscopy today. Telemetry reveals atrial fibrillation with a heart rate around 140. Echocardiogram completed revealing ejection fraction 55-60%, mild aortic regurgitation, moderate aortic stenosis, mild mitral regurgitation, and mild tricuspid regurgitation. 07/21/2021 Patient examined this morning at the bedside. Patient denies chest pain or pressure. She denies shortness of breath. Patient remains in atrial fibrilla tion with a heart rate in the 90s. She is scheduled for EGD and colonoscopy today. 07/22/2021 Patient examined this morning. She is sitting up in the chair. She underwent EGD and colonoscopy yesterday. Source of bleeding likely diverticular or. Anal and etiology per surgery. Patient's Eliquis remains on hold. The patient does report shortness of breath this morning. She does appear to be volume overloaded. She was started on IV fluids per internal medicine this morning. 07/23/2021 Patient examined this morning. She is sitting up in the chair. She denies chest pain or pressure. She reports improvement in her shortness of breath. She is maintained on oral Lasix. Eliquis remains on hold. PHYSICAL EXAM: VITAL SIGNS: Reviewed. GENERAL: Well-developed in no acute distress. NECK: Supple. No JVD or thyromegaly LUNGS: Respirations even and unlabored. Lungs essentially clear to auscultation bilaterally. HEART: Tachycardic. Irregular rate and rhythm. S1 and S2 heard. EXTREMITIES: Normal range of motion. No clubbing or cyanosis. Peripheral pulses intact. 1-2+ lower extremity edema ASSESSMENT: COPD exacerbation Acute on chronic hypoxic respiratory failure Possible pneumonia Lower GI bleed with acute blood loss anemia Chronic persistent atrial fibrillation with RVR Acute on chronic Chronic diastolic congestive heart failure Hypertension Hyperlipidemia Diabetes Sick sinus syndrome with dual-chamber pacemaker implantation in 2018 Former nicotine dependence PLAN: Continue cardiac current medications. Continue oral lasix. Continue telemetry monitoring Per Dr. Irizarry, may resume Eliquis on Tuesday07/25/2021 Patient is stable for discharge from a cardiac standpoint We will follow on an as needed basis. Please call with questions or concerns. Nurse practitioner note has been reviewed by physician. Signing provider agrees with the documented findings, assessment, and plan of care. Objective - Vital Signs Vital signs: Vital Signs Temp 97.6 F 07/23/21 08:30 Pulse 65 07/23/21 11:39 Resp 17 07/23/21 08:30 BP 95/56 07/23/21 08:30 Pulse Ox 100 07/23/21 08:30 Intake & Output 07/22/21 07/23/21 07/23/21 18:59 06:59 18:59 Intake Total 340 236 Output Total 800 1300 Balance -460 -1300 236 Intake: Intake, IV Titration 100 Amount Piperacillin-Tazobactam 3 100 .375 gm In Sodium Chloride 0.9% 100 ml @ 25 mls/hr IVPB Q8HR [facility] Rx# :[id number] Oral 240 236 Output: Urine 800 1300 Other: Voiding Method Bedside Commode External Catheter - Labs CBC & Chem 7: 07/22/21 08:08 07/22/21 08:08
[2021-07-23] MEDS: DILTIAZEM CD 180 MG CAP.ER.24H PO SCH (11:58)
[2021-07-23 12:59] VITALS: BMI 27.9
[2021-07-23] MEDS: ATORVASTATIN 20 MG TAB PO SCH (20:05)
[2021-07-23] MEDS: MAGNESIUM CITRATE 296 ML BOTTLE PO SCH (20:19)
[2021-07-23] MEDS: LEVOFLOXACIN 250MG-D5W PMX 250 MG in DEXTROSE/WATER 1 50ML.BAG IVPB SCH (21:41)
[2021-07-24] MEDS: ACETAMINOPHEN TAB 325 MG TAB PO PRN (00:54)
[2021-07-24 01:15] VITALS: RESP 18
[2021-07-24] MEDS: SYMBICORT 160-4.5 MCG INHALER INHALATION SCH (07:41)
[2021-07-24] MEDS: IPRATROPIUM-ALBUTEROL 3 ML NEB INHALATION SCH ×2 (07:41→11:26)
[2021-07-24] MEDS: ISOSORBIDE MONONITRATE ER 15 MG TAB PO SCH (08:26)
[2021-07-24] MEDS: FUROSEMIDE 40 MG TAB PO SCH (08:26)
[2021-07-24] MEDS: predniSONE 10 MG TAB PO SCH (08:26)
[2021-07-24] MEDS: METOPROLOL TARTRATE 50 MG TAB PO SCH (08:26)
[2021-07-24] MEDS: PANTOPRAZOLE 40 MG/10 ML VIAL IVP SCH (08:27)
[2021-07-24] MEDS: PIPERACILLIN-TAZOBACTAM 3.375 GM in SODIUM CHLORIDE 0.9% 100 ML IVPB SCH (08:27)
[2021-07-24] MEDS: DIGOXIN 125 MCG TAB PO SCH (08:35)
[2021-07-24 09:21] LABS: HCT 30.7 % (34.0-46.0); HGB 9.9 gm/dL (11.4-16.0); Hypochromasia Moderate; MCH 30.6 pg (25.0-35.0); MCHC 32.1 g/dL (31.0-37.0); MCV 95.3 fL (80.0-100.0); Platelet Count 244 k/uL (150-450); Poikilocytosis Slight; RBC 3.22 m/uL (3.80-5.40); RDW 15.8 % (11.5-15.5); WBC 11.1 k/uL (3.8-10.6)
--- NOTE | 2021-07-24 10:19 | P.DS ---
Providers Date of admission: 07/17/21 17:36 Expected date of discharge: 07/24/21 Attending physician: Phoenix Gutiérrez Consults: 07/17/21 17:33 Consult Physician Routine Consulting Provider: Shruti Plasencia Consult Reason/Comments: COPD, dyspnea Do you want consulting provider notified?: Yes 07/17/21 23:27 Consult Physician Urgent Consulting Provider: Curtis Hay Consult Reason/Comments: GIB Do you want consulting provider notified?: Yes 07/17/21 23:29 Consult Physician Urgent Consulting Provider: Farideh Pascual Consult Reason/Comments: ICU Management Do you want consulting provider notified?: Yes Primary care physician: Phoenix Gutiérrez Hospital Course: HISTORY OF PRESENT ILLNESS This is an 89-year old- female patient of [facility] with a previous medical history significant for hypertension and hypertensive cardiovascular disease, hyperlipidemia, Paroxysmal atrial fibrillation, 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 Was recently discharged from [facility] after she was admitted for lower GI bleed and she did receive one units of PRBC and her hemoglobin was stable after she was taken off Eliquis on the she was at 11.5, then she restarted Eliquis on Tuesday and since she was discharged from the hospital she has been complaining of significant polyuria and going to the bathroom all night long, she felt exhausted and not able to keep up with her fluid intake, VNA went to see the patient today and she was comlaining of lethargy and increased shortness of breath, she was sent in by EMS to the ER at [facility] for evaluation, BGM was 140, the rest of the labs were relatively stable, her hemoglobin was down to 9.9 and she was having significant expiratory wheezes, CXR did show possible worsening infiltrate, and BNP slightly elevated, nothing drastic , she is already on home O2, but because of the presentation she was started on IV Levaquin 250 mg IVPB daily along with Zosyn and Slu-Medrol 40 mg IVP Q 8 hours, lasix 40 mg IVP Q 12 hours, pulmonary and cardiology consult. While the patient was in the emergency department she did have a large bowel movement that was bloody with about 250 mL of fresh blood, patient apparently is having a lower GI bleed, transfer the patient to the intensive care unit, type and cross and transfuse 1 unit of packed red blood cells, consult general s artur Hay, monitor the patient's CBC every 6 hours, keep the patient the ER until a bed becomes available in the intensive care unit. 07/18: Patient is laying down in bed she had multiple episodes of bright red blood per rectum since last night, and a team was called and the patient as the patient heart rate 1 250 she did receive adenosine, she did receive metoprolol 50 mg orally and top of her metoprolol that she is taking, she was taken off Eliquis, she was given 1 unit of packed red blood cells, her hemoglobin is stable at 9, patient will be transferred to the ICU, the plan is to have an EGD and colonoscopy hopefully on Tuesday keep the patient on nothing per mouth for now. 07/19: Patient is laying down in bed in no apparent distress, her hemoglobin is 9.5 today after blood transfusion, no more GI bleed at this time, I spoke with general surgery about planning for EGD tomorrow morning because of patient's chronic anticoagulations due to chronic atrial fibrillation, continue Protonix 40 mg IV push every 12 hours, continue to monitor hemoglobin over the next 24 hours, continue oxygen support, blood pressure some marginal metoprolol was discontinued and the patient was started back on Cardizem 360 mg orally once every day, we'll follow the patient very closely. 07/20: Patient is seen today resting in recliner and appears to be quite tired. She had good results from the prep last night. EGD and colonoscopy today. She denies any abdominal pain and did not notice if there was any blood in her bowel movements last evening. Heart rate is elevated and she will receive her beta tai, Cardizem. Patient is followed by cardiology and pulmonary medicine . Patient is quite dry this morning and will be given a bolus of 200 mL followed by 75 mL per hour. Patient is afebrile, heart rate 142, blood pressure 105/66, pulse ox 100% on 2 L nasal cannula. 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 Hemoglobin is 9.2, WBC 13.9. Echocardiogram reveals EF of 55-60% with borderline concentric left ventricular hypertrophy, mild aortic regurgitation, moderate aortic stenosis, mild mitral regurgitation, mild tricuspid regurgitation, mild pulmonary hypertension, RVSP 34.73 mmHg. 07/21: Endoscopy was post poned until today. Hemoglobin 8. Potassium 3.2 and will be replaced. Calcium 6.2 and will be replaced with 2 g of calcium gluconate. Patient has been afebrile, heart rate 79, blood pressure 115/62, pulse ox 90-100 on 2 L nasal cannula. sleeve bottom feller is atrial fibrillation, controlled rate. Heart rate has been running in the 70s overnight. IV fluids decreased to 50 ML's per hour. 07/22: Patient underwent EGD with biopsy and colonoscopy with Dr. Hay 07/21 finding minimal gastritis and diverticulosis. Source of bleeding most likely diverticular or perianal in etiology. Patient was cleared to resume diet. Hemoglobin 9.4, WBC 11.1. Sodium 136 otherwise electrolytes and renal function normal. Patient noted to have significant edema to the arms and legs. Chest x- ray reveals mild bibasilar infiltrates similar to comparison study. Patient started on IV Lasix subsequently discontinued by cardiology and switched to oral. Anticipate probable discharge home tomorrow. 07/23: She continues to have fluid retention and continued on Lasix 40 mg twice daily oral. Patient is tolerating a regular diet. Repeat blood work will be ordered for tomorrow. Respiratory status is stable. Plan medicine has signed off. Anticipate possible discharge the next 24 hours. 07/24: Patient's breathing status is at baseline. She is on oxygen at 2 L nasal cannula with pulse ox 99%. She's been afebrile, heart rate in the 70s to 90s, blood pressure 139/65. Repeat blood work reveals WBC 11.1, hemoglobin 9.9. Long discussion with the patient regarding discharge planning. She does have VNA in place and she has someone help her 2 times per week. She is afraid that she will not do well at home and needs additional assistance at least initially. She would like to go to [facility] as first option or [facility] as a second option for rehab and build up her strength. Patient will be discharged once all arrangements are completed. DISCHARGE DIAGNOSES 1. Acute Hypoxemic respiratory failure due to COPD exacerbation with possible gram negative pneumonia along with diastolic heart failure. 2. Acute blood loss anemia due to acute GI bleed possibly diverticular bleed status post EGD and colonoscopy. 3. Atrial fibrillation w/RVR, paroxysmal. 3. Acute exacerbation of COPD with a prior history of COVID-19 pneumonia. 4. Hypertension and hypertensive cardiovascular disease. 5. Hyperlipidemia. 6. Acute on chronic diastolic heart failure. 7. 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 8. GERD. 9. CAD. 10. Diabetes mellitus type 2. 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 Discharge plan Subacute rehab at [facility] Greater than 35 minutes was utilized and coordinating patient's discharge. Impression and plan of care have been directed as dictated by the signing physician. Noelle Gilbert nurse practitioner acting as scribe for signing physician. Patient Condition at Discharge: Stable Plan - Discharge Summary Discharge Rx Participant: No New Discharge Prescriptions: New Ipratropium-Albuterol Nebulize [Duoneb 0.5 mg-3 mg/3 ml Soln] 3 ml INHALATION RT-QID ml Continue Famotidine [Pepcid] 20 mg PO AC-BID Risedronate Sodium [Risedronate Sodium Dr] 35 mg PO MO Omeprazole 20 mg PO DAILY Isosorbide Mononitrate ER [Imdur] 15 mg PO DAILY Digoxin [Digitek] 62.5 mcg PO MOTUWETHFRSA Atorvastatin [Lipitor] 20 mg PO HS Albuterol Inhaler [Ventolin Hfa Inhaler] 1 - 2 puff INHALATION RT-QID PRN PRN Reason: Shortness Of Breath Calcium Carbonate [Calcium] 600 mg PO AC-LUNCH Melatonin 5 mg PO HS Dapagliflozin Propanediol [Farxiga] 5 mg PO DAILY metFORMIN HCL [Glucophage] 1,000 mg PO AC-SUPPER Budesonide-Formot 160-4.5 Mcg [Symbicort 160-4.5 Mcg Inhaler] 2 puff INHALATION RT-BID #1 puff Ascorbic Acid [Vitamin C] 500 mg PO BID tab Cholecalciferol [Vitamin D3 (25 Mcg = 1000 Iu)] 50 mcg PO DAILY tablet Furosemide [Lasix] 40 mg PO BID@0900,1600 #60 tab Metoprolol Tartrate [Lopressor] 100 mg PO BID Apixaban [Eliquis] 2.5 mg PO BID #0 Magnesium Oxide [Mag-Ox] 400 mg PO AC-LUNCH Cyanocobalamin (Vitamin B-12) [Vitamin B-12] 1,000 mcg PO AC-LUNCH predniSONE 10 mg PO DAILY #0 Potassium Chloride [Potassium Chloride ER] 10 meq PO AC-BID Diltiazem Cd [Cardizem CD] 360 mg PO DAILY #30 capsule Discontinued Ipratropium-Albuterol Nebulize [Duoneb 0.5 mg-3 mg/3 ml Soln] 3 ml INHALATION RT-QID Discharge Medication List Famotidine [Pepcid] 20 mg PO AC-BID 10/23/17 [History] Albuterol Inhaler [Ventolin Hfa Inhaler] 1 - 2 puff INHALATION RT-QID PRN 06/16/20 [History] Atorvastatin [Lipitor] 20 mg PO HS 06/16/20 [History] Digoxin [Digitek] 62.5 mcg PO MOTUWETHFRSA 06/16/20 [History] Isosorbide Mononitrate ER [Imdur] 15 mg PO DAILY 06/16/20 [History] Omeprazole 20 mg PO DAILY 06/16/20 [History] Risedronate Sodium [Risedronate Sodium Dr] 35 mg PO MO 06/16/20 [History] Calcium Carbonate [Calcium] 600 mg PO AC-LUNCH 01/21/21 [History] Cyanocobalamin (Vitamin B-12) [Vitamin B-12] 1,000 mcg PO AC-LUNCH 01/21/21 [History] Dapagliflozin Propanediol [Farxiga] 5 mg PO DAILY 01/21/21 [History] Magnesium Oxide [Mag-Ox] 400 mg PO AC-LUNCH 01/21/21 [History] Melatonin 5 mg PO HS 01/21/21 [History] metFORMIN HCL [Glucophage] 1,000 mg PO AC-SUPPER 01/21/21 [History] Budesonide-Formot 160-4.5 Mcg [Symbicort 160-4.5 Mcg Inhaler] 2 puff INHALATION RT-BID #1 puff 01/24/21 [Rx] Ascorbic Acid [Vitamin C] 500 mg PO BID tab 05/01/21 [Rx] Cholecalciferol [Vitamin D3 (25 Mcg = 1000 Iu)] 50 mcg PO DAILY tablet 05/01/21 [Rx] predniSONE 10 mg PO DAILY #0 05/01/21 [Rx] Potassium Chloride [Potassium Chloride ER] 10 meq PO AC-BID 05/04/21 [History] Diltiazem Cd [Cardizem CD] 360 mg PO DAILY #30 capsule 05/11/21 [Rx] Furosemide [Lasix] 40 mg PO BID@0900,1600 #60 tab 11/08/21 [Rx] Metoprolol Tartrate [Lopressor] 100 mg PO BID 07/10/21 [History] Apixaban [Eliquis] 2.5 mg PO BID #0 07/14/21 [Rx] Ipratropium-Albuterol Nebulize [Duoneb 0.5 mg-3 mg/3 ml Soln] 3 ml INHALATION RT-QID ml 07/24/21 [Rx] Follow up Appointment(s)/Referral(s): Shruti Plasencia MD [STAFF PHYSICIAN] - 07/30/21 4:15 pm Josh Pina MD [STAFF PHYSICIAN] - 1 Week [facility] Visiting Nurse, [NON-STAFF] - As Needed Phoenix Gutiérrez MD [Primary Care Provider] - 1 Week (at [facility]) Activity/Diet/Wound Care/Special Instructions: RESUME ELIQUIS ON Tuesday07/25/[address] BRADSHAW Discharge Disposition: TRANSFER TO SNF/ECF
[2021-07-24 11:50] VITALS: BP 127/67; PULSE 75; TEMP 98.1
[2021-07-24] MEDS: DILTIAZEM CD 180 MG CAP.ER.24H PO SCH (12:00)
== END 2021-07-24 13:18 | DRG 177 ==
LOC: EC 14:05 → 4SSUR 17:36 → 3SCARD 18:56 → 2SICU 23:50 → 4SSUR 07-18 13:19
PROVIDERS: ADMIT Internal Medicine; ATTEND Internal Medicine
PROC: 30233N1 Transfusion of Nonautologous Red Blood Cells into Peripheral Vein, Percutaneous Approach (ICD-10-PCS; 2021-07-18)
PROC: 0DJ08ZZ Inspection of Upper Intestinal Tract, Via Natural or Artificial Opening Endoscopic (ICD-10-PCS; principal; 2021-07-21 11:35)
PROC: 0DJD8ZZ Inspection of Lower Intestinal Tract, Via Natural or Artificial Opening Endoscopic (ICD-10-PCS; 2021-07-21 11:35)
DX: J15.6 Pneumonia due to other Gram-negative bacteria (principal); I50.33 Acute on chronic diastolic (congestive) heart failure; J96.21 Acute and chronic respiratory failure with hypoxia; K57.31 Diverticulosis of large intestine without perforation or abscess with bleeding; J44.1 Chronic obstructive pulmonary disease with (acute) exacerbation; I48.92 Unspecified atrial flutter; I48.19 Other persistent atrial fibrillation; D62 Acute posthemorrhagic anemia; I13.0 Hypertensive heart and chronic kidney disease with heart failure and stage 1 through stage 4 chronic kidney disease, or unspecified chronic kidney disease; J44.0 Chronic obstructive pulmonary disease with (acute) lower respiratory infection; Z20.822 Contact with and (suspected) exposure to COVID-19; R13.10 Dysphagia, unspecified; K21.9 Gastro-esophageal reflux disease without esophagitis; M81.8 Other osteoporosis without current pathological fracture; E11.22 Type 2 diabetes mellitus with diabetic chronic kidney disease; E78.5 Hyperlipidemia, unspecified; I25.10 Atherosclerotic heart disease of native coronary artery without angina pectoris; N18.9 Chronic kidney disease, unspecified; I35.0 Nonrheumatic aortic (valve) stenosis; H35.30 Unspecified macular degeneration; Z96.1 Presence of intraocular lens; K29.70 Gastritis, unspecified, without bleeding; M19.90 Unspecified osteoarthritis, unspecified site; T38.0X5A Adverse effect of glucocorticoids and synthetic analogues, initial encounter; I49.5 Sick sinus syndrome; Z86.16 Personal history of COVID-19; Z85.828 Personal history of other malignant neoplasm of skin; Z87.01 Personal history of pneumonia (recurrent); Z87.11 Personal history of peptic ulcer disease; Z87.891 Personal history of nicotine dependence; Z99.81 Dependence on supplemental oxygen; Z95.0 Presence of cardiac pacemaker; Z98.890 Other specified postprocedural states; Z79.01 Long term (current) use of anticoagulants; Z79.51 Long term (current) use of inhaled steroids; Z79.52 Long term (current) use of systemic steroids; Z79.84 Long term (current) use of oral hypoglycemic drugs; Z79.899 Other long term (current) drug therapy; Z98.42 Cataract extraction status, left eye; Z98.41 Cataract extraction status, right eye; Z90.3 Acquired absence of stomach [part of]; Z82.49 Family history of ischemic heart disease and other diseases of the circulatory system; Z80.0 Family history of malignant neoplasm of digestive organs
CPT/HCPCS: 36415; 36600; 43235; 45378; 71045; 71046; 80048; 80053; 82805; 83605; 83735; 83880; 84132; 84145; 84484; 85025; 85027; 85610; 85730; 86850; 86900; 86901; 86920; 87635; 93005; 93306; 94640; 94760; 96365; 96375; 99285

== ENCOUNTER 2021-07-29 10:03 | Inpatient (IN) | payer MEDICARE ==
[2021-07-29] MEDS ORDERED: ASPIRIN 81 MG PO STA (10:39)
[2021-07-29] MEDS ORDERED: DILTIAZEM 5 MG/ML 5 ML VIAL IVP STA ×2 (10:39→13:26)
--- NOTE | 2021-07-29 10:42 | ED ---
General Adult HPI - General Chief complaint: Chest Pain Stated complaint: chest pain Time Seen by Provider: 07/29/21 10:04 Source: patient, RN notes reviewed Mode of arrival: EMS Limitations: no limitations - History of Present Illness Initial comments: Patient is a pleasant 89-year-old female presenting to the emergency department with concerns for chest discomfort. Onset of symptoms was around 4 5 in the morning. Discomfort felt like heaviness. Discomfort is near resolved at this time. Patient may have been slightly short of breath earlier, none at this time. No nausea. No diaphoresis. Patient also has had some palpitations. Patient does have history of atrial fibrillation. Palpitations have resolved. No leg pain - Related Data Home Medications Medication Instructions Recorded Confirmed Albuterol Inhaler [Ventolin Hfa 1 puff INHALATION RT-QID PRN 06/16/20 07/29/21 Inhaler] Atorvastatin [Lipitor] 20 mg PO HS 06/16/20 07/29/21 Digoxin [Digitek] 62.5 mcg PO MOTUWETHFRSA 06/16/20 07/29/21 Isosorbide Mononitrate ER [Imdur] 15 mg PO DAILY 06/16/20 07/29/21 Omeprazole 20 mg PO DAILY@0600 06/16/20 07/29/21 Calcium Carbonate [Calcium] 600 mg PO DAILY 01/21/21 07/29/21 Cyanocobalamin (Vitamin B-12) 1,000 mcg PO DAILY 01/21/21 07/29/21 [Vitamin B-12] Dapagliflozin Propanediol [Farxiga] 5 mg PO DAILY 01/21/21 07/29/21 Magnesium Oxide [Mag-Ox] 400 mg PO DAILY 01/21/21 07/29/21 Melatonin 5 mg PO HS 01/21/21 07/29/21 metFORMIN HCL [Glucophage] 1,000 mg PO DAILY@1700 01/21/21 07/29/21 Potassium Chloride [Potassium 10 meq PO BID@0900,1700 05/04/21 07/29/21 Chloride ER] Metoprolol Tartrate [Lopressor] 100 mg PO BID 07/10/21 07/29/21 Acetaminophen Tab [Tylenol] 650 mg PO Q4H PRN 07/29/21 07/29/21 Alendronate Sodium [Fosamax] 70 mg PO MO@0600 07/29/21 07/29/21 Apixaban [Eliquis] 2.5 mg PO BID 07/29/21 07/29/21 Collagenase [Santyl Ointment] 1 applic TOPICAL HS 07/29/21 07/29/21 Diltiazem HCl [Cardizem CD] 360 mg PO DAILY 07/29/21 07/29/21 Furosemide [Lasix] 40 mg PO BID@0600,1400 07/29/21 07/29/21 Previous Rx's Medication Instructions Recorded Budesonide-Formot 160-4.5 Mcg 2 puff INHALATION RT-BID #1 puff 01/24/21 [Symbicort 160-4.5 Mcg Inhaler] Ascorbic Acid [Vitamin C] 500 mg PO BID tab 05/01/21 Cholecalciferol [Vitamin D3 (25 50 mcg PO DAILY tablet 05/01/21 Mcg = 1000 Iu)] predniSONE 10 mg PO DAILY #0 05/01/21 Amoxicillin/Potassium Clav 1 tab PO BID 7 Days #14 tab 07/24/21 [Augmentin 875-125 Tablet] Ipratropium-Albuterol Nebulize 3 ml INHALATION RT-QID ml 07/24/21 [Duoneb 0.5 mg-3 mg/3 ml Soln] Allergies Allergy/AdvReac Type Severity Reaction Status Date / Time Sulfa (Sulfonamide Allergy Unknown Verified 07/29/21 10:27 Antibiotics) Childhood shellfish derived [Shellfish] AdvReac Nausea & Verified 07/29/21 10:27 Vomiting & Diarrhea Review of Systems ROS Statement: Those systems with pertinent positive or pertinent negative responses have been documented in the HPI. ROS Other: All systems not noted in ROS Statement are negative. Constitutional: Denies: fever Eyes: Denies: eye pain ENT: Denies: ear pain Respiratory: Denies: cough Cardiovascular: Reports: as per HPI, chest pain, palpitations Endocrine: Denies: fatigue Gastrointestinal: Denies: abdominal pain Genitourinary: Denies: dysuria Musculoskeletal: Denies: back pain Skin: Denies: rash Neurological: Denies: weakness Past Medical History Past Medical History: Atrial Fibrillation, Cancer, Heart Failure, COPD, GERD/Reflux, Hyperlipidemia, Hypertension, Osteoarthritis (OA) Additional Past Medical History / Comment(s): skin cancer on scalp, macular degeneration History of Any Multi-Drug Resistant Organisms: None Reported Past Surgical History: Hernia Repair, Pacemaker, Tonsillectomy Additional Past Surgical History / Comment(s): skin cancer removed from scalp, andrew cataracts Past Anesthesia/Blood Transfusion Reactions: No Reported Reaction Type of Cardiac Device: Permanent Pacemaker Device Placement Date:: 2017 Past Psychological History: No Psychological Hx Reported Smoking Status: Former smoker Past Alcohol Use History: None Reported Past Drug Use History: None Reported - Past Family History Father Family Medical History: Coronary Artery Disease (CAD) Additional Family Medical History / Comment(s): Father at age 91 with history of heart disease. Mother Family Medical History: Cancer Additional Family Medical History / Comment(s): Mother at age 87 from pancreatic cancer. Brother(s) Additional Family Medical History / Comment(s): Patient has 1 brother that at age 93 from liver cancer. Sister(s) Additional Family Medical History / Comment(s): Patient has 2 sisters with no major medical problems. Daughter(s) Additional Family Medical History / Comment(s): Patient has a total of 4 children, 3 daughters and 1 son. One daughter at a young age and a motor vehicle accident. General Exam Limitations: no limitations General appearance: alert, in no apparent distress Head exam: Present: normocephalic Eye exam: Present: normal appearance Neck exam: Present: normal inspection Respiratory exam: Present: normal lung sounds bilaterally Cardiovascular Exam: Present: tachycardia, irregular rhythm Expanded Peripheral pulses: 2+: Radial (R), Radial (L), Dorsalis Pedis (R), Dorsalis Pedis (L) GI/Abdominal exam: Present: soft. Absent: tenderness Extremities exam: Present: normal inspection. Absent: pedal edema, calf tenderness Neurological exam: Present: alert Psychiatric exam: Present: normal affect, normal mood Skin exam: Present: normal color Course Vital Signs 07/29/21 07/29/21 07/29/21 10:09 10:21 11:00 Temperature 97.9 F Pulse Rate 125 H 135 H 108 H Respiratory 22 20 20 Rate Blood Pressure 86/59 116/51 O2 Sat by Pulse 100 100 98 Oximetry 07/29/21 07/29/21 07/29/21 11:10 11:16 11:20 Temperature Pulse Rate 118 H 114 H Respiratory Rate Blood Pressure 101/52 101/52 101/52 O2 Sat by Pulse Oximetry EKG Findings - EKG Comments: EKG Findings:: A. fib with a rate of 107. QRS 96. QT 368. QTC 491. Normal axis. Normal QRS. There is some lateral ST depression. Medical Decision Making - Medical Decision Making Patient reevaluated and updated. Potassium replacement ordered. Case discussed with Dr. Gutiérrez, who will admit his patient with cardiology consult. - Lab Data Result diagrams: 07/29/21 10:19 07/29/21 10:19 Lab Results 07/29/21 07/29/21 07/29/21 Range/Units 10:19 10:19 10:19 WBC 10.3 (3.8-10.6) k/uL RBC 3.28 L (3.80-5.40) m/uL Hgb 9.5 L (11.4-16.0) gm/dL Hct 29.6 L (34.0-46.0) % MCV 90.4 (80.0-100.0) fL MCH 28.8 (25.0-35.0) pg MCHC 31.9 (31.0-37.0) g/dL RDW 14.8 (11.5-15.5) % Plt Count 169 (150-450) k/uL MPV 7.9 Neutrophils % 83 % Lymphocytes % 9 % Monocytes % 7 % Eosinophils % 1 % Basophils % 0 % Neutrophils # 8.5 H (1.3-7.7) k/uL Lymphocytes # 0.9 L (1.0-4.8) k/uL Monocytes # 0.7 (0-1.0) k/uL Eosinophils # 0.1 (0-0.7) k/uL Basophils # 0.0 (0-0.2) k/uL Hypochromasia Moderate Poikilocytosis Moderate PT 10.9 (9.0-12.0) sec INR 1.0 (<1.2) APTT 21.1 L (22.0-30.0) sec Sodium 134 L (137-145) mmol/L Potassium 2.3 L* (3.5-5.1) mmol/L Chloride 90 L (98-107) mmol/L Carbon Dioxide 37 H (22-30) mmol/L Anion Gap 7 mmol/L BUN 16 (7-17) mg/dL Creatinine 0.77 (0.52-1.04) mg/dL Est GFR (CKD-EPI)AfAm 79 (>60 ml/min/1.73 sqM) Est GFR (CKD-EPI)NonAf 69 (>60 ml/min/1.73 sqM) Glucose 190 H (74-99) mg/dL Calcium 9.5 (8.4-10.2) mg/dL Magnesium 1.4 L (1.6-2.3) mg/dL Total Bilirubin 0.9 (0.2-1.3) mg/dL AST 20 (14-36) U/L ALT 17 (4-34) U/L Alkaline Phosphatase 41 (38-126) U/L Troponin I (0.000-0.034) ng/mL Total Protein 4.7 L (6.3-8.2) g/dL Albumin 2.9 L (3.5-5.0) g/dL 07/29/21 Range/Units 10:19 WBC (3.8-10.6) k/uL RBC (3.80-5.40) m/uL Hgb (11.4-16.0) gm/dL Hct (34.0-46.0) % MCV (80.0-100.0) fL MCH (25.0-35.0) pg MCHC (31.0-37.0) g/dL RDW (11.5-15.5) % Plt Count (150-450) k/uL MPV Neutrophils % % Lymphocytes % % Monocytes % % Eosinophils % % Basophils % % Neutrophils # (1.3-7.7) k/uL Lymphocytes # (1.0-4.8) k/uL Monocytes # (0-1.0) k/uL Eosinophils # (0-0.7) k/uL Basophils # (0-0.2) k/uL Hypochromasia Poikilocytosis PT (9.0-12.0) sec INR (<1.2) APTT (22.0-30.0) sec Sodium (137-145) mmol/L Potassium (3.5-5.1) mmol/L Chloride (98-107) mmol/L Carbon Dioxide (22-30) mmol/L Anion Gap mmol/L BUN (7-17) mg/dL Creatinine (0.52-1.04) mg/dL Est GFR (CKD-EPI)AfAm (>60 ml/min/1.73 sqM) Est GFR (CKD-EPI)NonAf (>60 ml/min/1.73 sqM) Glucose (74-99) mg/dL Calcium (8.4-10.2) mg/dL Magnesium (1.6-2.3) mg/dL Total Bilirubin (0.2-1.3) mg/dL AST (14-36) U/L ALT (4-34) U/L Alkaline Phosphatase (38-126) U/L Troponin I 0.031 (0.000-0.034) ng/mL Total Protein (6.3-8.2) g/dL Albumin (3.5-5.0) g/dL - Radiology Data Radiology results: image reviewed (Chest x-ray shows some improvement ofInfiltrates) Disposition Clinical Impression: Chest pain, Hypokalemia Disposition: ADMITTED IP TO THIS HOSP Is patient prescribed a controlled substance at d/c from ED?: No Referrals: Phoenix Gutiérrez MD [Primary Care Provider] - 1-2 days Decision Time: 11:47
[2021-07-29 10:55] LABS: Albumin 2.9 g/dL (3.5-5.0); Calcium 9.5 mg/dL (8.4-10.2); Magnesium 1.4 mg/dL (1.6-2.3); Total Bilirubin 0.9 mg/dL (0.2-1.3); Total Protein 4.7 g/dL (6.3-8.2)
[2021-07-29 10:59] LABS: Potassium 2.3 mmol/L (3.5-5.1)
[2021-07-29 11:11] LABS: Prothrombin Time 10.9 sec (9.0-12.0)
[2021-07-29 11:14] LABS: Basophils % (A) 0 %; Eosinophils # (A) 0.1 k/uL (0-0.7); Eosinophils % (A) 1 %; HCT 29.6 % (34.0-46.0); HGB 9.5 gm/dL (11.4-16.0); Hypochromasia Moderate; Lymphocytes # (A) 0.9 k/uL (1.0-4.8); Lymphocytes % (A) 9 %; MCH 28.8 pg (25.0-35.0); MCHC 31.9 g/dL (31.0-37.0); MCV 90.4 fL (80.0-100.0); Mean Platelet Volume 7.9; Monocytes # (A) 0.7 k/uL (0-1.0); Monocytes % (A) 7 %; Neutrophils # (A) 8.5 k/uL (1.3-7.7); Neutrophils % (A) 83 %; Partial Thromboplastin Time 21.1 sec (22.0-30.0); Platelet Count 169 k/uL (150-450); Poikilocytosis Moderate; RBC 3.28 m/uL (3.80-5.40); RDW 14.8 % (11.5-15.5); WBC 10.3 k/uL (3.8-10.6)
--- NOTE | 2021-07-29 11:19 | XR ---
EXAMINATION TYPE: XR chest 2V DATE OF EXAM: 07/29/2021 COMPARISON: 07/22/2021 HISTORY: Shortness of breath TECHNIQUE: Frontal and lateral views of the chest are obtained. FINDINGS: Scattered senescent parenchymal changes noted. Hyperinflation compatible with COPD. Persistent but improved mixed infiltrates mid and lower lung zones bilaterally. Heart size is stable. Mediastinal structures are stable and grossly unremarkable. No evidence for hilar prominence. Degenerative changes dorsal spine. IMPRESSION: 1. Persistent but improved mixed infiltrates mid and lower lung zones bilaterally.
[2021-07-29] MEDS ORDERED: POTASSIUM CHLORIDE 20 MEQ in WATER FOR INJECTION 1 100ML.BAG IVPB STA (11:27)
[2021-07-29] MEDS ORDERED: POTASSIUM CHLORIDE ER 20 MEQ TAB.ER PO STA (11:27)
[2021-07-29] MEDS ORDERED: NITROGLYCERIN SL TABS 0.4 MG TAB SUBLINGUAL PRN (11:47)
[2021-07-29] MEDS ORDERED: ALBUTEROL NEBULIZED 2.5 MG/3 ML INHALATION PRN (15:23)
[2021-07-29] MEDS ORDERED: ACETAMINOPHEN TAB 325 MG TAB PO PRN (15:23)
[2021-07-29] MEDS: DILTIAZEM CD 180 MG CAP.ER.24H PO SCH (16:12)
[2021-07-29] MEDS: IPRATROPIUM-ALBUTEROL 3 ML NEB INHALATION SCH ×2 (16:23→19:44)
[2021-07-29 16:42] LABS: Potassium 3.4 mmol/L (3.5-5.1)
[2021-07-29] MEDS ORDERED: POTASSIUM CHLORIDE 10 MEQ PO SCH (17:00)
[2021-07-29 18:04] LABS: Magnesium 1.8 mg/dL (1.6-2.3)
[2021-07-29] MEDS: SYMBICORT 160-4.5 MCG INHALER INHALATION SCH (19:44)
[2021-07-29] MEDS: COLLAGENASE 250 UNIT/GM OINTMENT 30 GM TUBE TOPICAL SCH (19:45)
[2021-07-29] MEDS: AMOXIC-POT CLAV 875-125MG 1 EACH TAB PO SCH (20:04)
[2021-07-29] MEDS: ATORVASTATIN 20 MG TAB PO SCH (20:04)
[2021-07-29] MEDS: POTASSIUM CHLORIDE ER 20 MEQ TAB.ER PO SCH (20:04)
[2021-07-29] MEDS: METOPROLOL TARTRATE 50 MG TAB PO SCH (20:04)
[2021-07-29] MEDS: ASCORBIC ACID 500 MG TAB PO SCH (20:04)
[2021-07-29] MEDS: APIXABAN 2.5 MG TABLET PO SCH (20:04)
[2021-07-29] MEDS: INSULIN ASPART (NovoLOG) 100 UNIT/ML VIAL SQ SCH (20:19)
[2021-07-29 20:23] LABS: Glucose,Whole Blood 210 mg/dL (75-99)
[2021-07-30 05:47] LABS: Glucose,Whole Blood 129 mg/dL (75-99)
[2021-07-30] MEDS: INSULIN ASPART (NovoLOG) 100 UNIT/ML VIAL SQ SCH ×4 (06:14→22:18)
[2021-07-30] MEDS: PANTOPRAZOLE 40 MG TABLET PO SCH (06:22)
[2021-07-30] MEDS: FUROSEMIDE 40 MG TAB PO SCH ×2 (06:22→16:38)
[2021-07-30 06:57] LABS: HCT 27.5 % (34.0-46.0); HGB 8.4 gm/dL (11.4-16.0); Hypochromasia Marked; MCH 28.9 pg (25.0-35.0); MCHC 30.7 g/dL (31.0-37.0); MCV 94.4 fL (80.0-100.0); Mean Platelet Volume 7.6; Platelet Count 149 k/uL (150-450); Poikilocytosis Moderate; RBC 2.91 m/uL (3.80-5.40); RDW 15.2 % (11.5-15.5); WBC 6.5 k/uL (3.8-10.6)
[2021-07-30 07:16] LABS: African American GFR (CKD) 79 (>60 ml/min/1.73 sqM); Anion Gap 2 mmol/L; Blood Urea Nitrogen 15 mg/dL (7-17); Calcium 9.6 mg/dL (8.4-10.2); Carbon Dioxide 38 mmol/L (22-30); Chloride 94 mmol/L (98-107); Glucose 104 mg/dL (74-99); Non-African American GFR(CKD) 69 (>60 ml/min/1.73 sqM); Potassium 3.1 mmol/L (3.5-5.1); Sodium 134 mmol/L (137-145)
[2021-07-30] MEDS ORDERED: POTASSIUM CHLORIDE ER 20 MEQ TAB.ER PO STA (08:08)
[2021-07-30] MEDS: IPRATROPIUM-ALBUTEROL 3 ML NEB INHALATION SCH ×4 (08:26→19:33)
[2021-07-30] MEDS: SYMBICORT 160-4.5 MCG INHALER INHALATION SCH ×2 (08:26→19:34)
[2021-07-30] MEDS: CHOLECALCIFEROL 25 MCG (1000 IU) TABLET PO SCH (08:48)
[2021-07-30] MEDS: CALCIUM CARBONATE 500 MG CHEWABLE PO SCH (08:49)
[2021-07-30] MEDS: APIXABAN 2.5 MG TABLET PO SCH ×2 (08:49→22:17)
[2021-07-30] MEDS: METOPROLOL TARTRATE 50 MG TAB PO SCH ×2 (08:49→22:20)
[2021-07-30] MEDS: predniSONE 10 MG TAB PO SCH (08:49)
[2021-07-30] MEDS: ISOSORBIDE MONONITRATE ER 30 MG TAB.ER.24H PO SCH (08:50)
[2021-07-30] MEDS: DILTIAZEM CD 180 MG CAP.ER.24H PO SCH (08:50)
[2021-07-30] MEDS: ASCORBIC ACID 500 MG TAB PO SCH ×2 (08:51→22:17)
[2021-07-30] MEDS: MAGNESIUM OXIDE 400 MG TAB PO SCH (08:51)
[2021-07-30] MEDS: DIGOXIN 125 MCG TAB PO SCH (08:51)
[2021-07-30] MEDS: AMOXIC-POT CLAV 875-125MG 1 EACH TAB PO SCH ×2 (08:54→22:18)
[2021-07-30] MEDS ORDERED: ASPIRIN 325 MG TAB PO SCH (09:00)
[2021-07-30] MEDS ORDERED: ISOSORBIDE MONONITRATE ER 15 MG TAB PO SCH (09:00)
[2021-07-30 11:12] LABS: Chol/HDL Ratio 1.66 Ratio; LDL Cholesterol,Calculated 15.5 mg/dL (0.0-131.0)
[2021-07-30 11:42] LABS: Glucose,Whole Blood 149 mg/dL (75-99)
[2021-07-30] MEDS: POTASSIUM CHLORIDE ER 20 MEQ TAB.ER PO SCH ×2 (12:14→22:17)
--- NOTE | 2021-07-30 12:20 | P.CRDCN ---
History of Present Illness Consult date: 07/30/21 History of present illness: HISTORY OF PRESENT ILLNESS: This is a 89-year-old female with a past medical history significant for chronic persistent atrial fibrillation, chronic hypoxic respiratory failure with home O2, diastolic congestive heart failure, COPD, hypertension, sick sinus syndrome with dual-chamber pacemaker in 2018, and former nicotine dependence. Patient was recently hospitalized secondary to COPD and lower GI bleed. Patient underwent endoscopy and her Eliquis was temporarily held. Patient follows in the office with Dr. Pina. We have been asked to see the patient in consultation for chest pain. Patient examined at the bedside. Patient states she came to the hospital because she was feeling very weak. She also reports having some left sided chest pain that went into her left arm. She reports it was pretty constant for most of the day yesterday. EKG reveals atrial fibrillation/flutter with a heart rate of 107. ST depression in lateral leads. Chest xray persistent but improved mixed infiltrates mid and lower lung zones bilaterally. Laboratory data: WBC 6.5. Hemoglobin 8.4. Platelet count 149. Sodium 134. Potassium 3.1. BUN 15. Creatinine 0.77. Troponin 0.031. 0.058. 0.070. Current home cardiac medications include Cardizem 360 mg daily, digoxin 62.5 g Tuesday to see Tuesday, Imdur 15 g daily, Lipitor 20 mg daily, Eliquis 2.5 mg twice a day, Lasix 40 mg twice a day, metoprolol 100 mg twice a day Most recent echocardiogram obtained in July 2021 revealed ejection fraction 55-60%, mild aortic regurgitation, moderate aortic stenosis, mild mitral regurgitation, mild tricuspid regurgitation, and mild pulmonary hypertension Patient underwent Lexiscan stress test in 2019 which was negative for ischemia REVIEW OF SYSTEMS: At the time of my exam: CONSTITUTIONAL: Denies fever or chills. HEENT: Denies blurred vision, vision changes, or eye pain. Denies hemoptysis CARDIOVASCULAR: Denies chest pain. Denies orthopnea. Denies PND. Denies palpitations RESPIRATORY: Denies shortness of breath. GASTROINTESTINAL: Denies abdominal pain. Denies nausea or vomiting. HEMATOLOGIC: Denies bleeding disorders. GENITOURINARY: Denies any blood in urine. SKIN: Denies pruitis. Denies rash. PHYSICAL EXAM: VITAL SIGNS: Reviewed. GENERAL: Well-developed in no acute distress. HEENT: Head is normocephalic. Pupils are equal, round. Sclerae anicteric. Mucous membranes of the mouth are moist. Neck supple. No JVD or thyromegaly LUNGS: Respirations even and unlabored. Lungs essentially clear to auscultation bilaterally. HEART: Irregular rate and rhythm. S1 and S2 heard. Systolic murmur noted. ABDOMEN: Soft. Nondistended. Nontender. EXTREMITIES: Normal range of motion. No clubbing or cyanosis. Peripheral pulses intact. Trace bilateral lower extremity edema NEUROLOGIC: Awake and alert. Oriented x 3. ASSESSMENT: Chest pain, atypical Abnormal troponins, may be secondary to type II DE due to oxygen supply and demand mismatch Chronic persistent atrial fibrillation Chronic hypoxic respiratory failure with home O2 Chronic diastolic heart failure COPD Hypertension Sick sinus syndrome with dual chamber pacemaker Aortic stenosis PLAN: Resume home cardiac medications Increase Imdur to 30mg daily Continue with conservative management at this time Further recommendations pending patient course Nurse practitioner note has been reviewed by physician. Signing provider agrees with the documented findings, assessment, and plan of care. Past Medical History Past Medical History: Atrial Fibrillation, Cancer, Heart Failure, COPD, GERD/Reflux, Hyperlipidemia, Hypertension, Osteoarthritis (OA) Additional Past Medical History / Comment(s): skin cancer on scalp, macular degeneration History of Any Multi-Drug Resistant Organisms: None Reported Past Surgical History: Hernia Repair, Pacemaker, Tonsillectomy Additional Past Surgical History / Comment(s): skin cancer removed from scalp, andrew cataracts Past Anesthesia/Blood Transfusion Reactions: No Reported Reaction Type of Cardiac Device: Permanent Pacemaker Device Placement Date:: 2017 Smoking Status: Former smoker - Past Family History Father Family Medical History: Coronary Artery Disease (CAD) Additional Family Medical History / Comment(s): Father at age 91 with his tory of heart disease. Mother Family Medical History: Cancer Additional Family Medical History / Comment(s): Mother at age 87 from pancreatic cancer. Brother(s) Additional Family Medical History / Comment(s): Patient has 1 brother that at age 93 from liver cancer. Sister(s) Additional Family Medical History / Comment(s): Patient has 2 sisters with no major medical problems. Daughter(s) Additional Family Medical History / Comment(s): Patient has a total of 4 children, 3 daughters and 1 son. One daughter at a young age and a motor vehicle accident. Medications and Allergies Home Medications Medication Instructions Recorded Confirmed Type Albuterol Inhaler [Ventolin Hfa 1 puff INHALATION RT-QID PRN 06/16/20 07/29/21 History Inhaler] Atorvastatin [Lipitor] 20 mg PO HS 06/16/20 07/29/21 History Digoxin [Digitek] 62.5 mcg PO MOTUWETHFRSA 06/16/20 07/29/21 History Isosorbide Mononitrate ER [Imdur] 15 mg PO DAILY 06/16/20 07/29/21 History Omeprazole 20 mg PO DAILY@0600 06/16/20 07/29/21 History Calcium Carbonate [Calcium] 600 mg PO DAILY 01/21/21 07/29/21 History Cyanocobalamin (Vitamin B-12) 1,000 mcg PO DAILY 01/21/21 07/29/21 History [Vitamin B-12] Dapagliflozin Propanediol [Farxiga] 5 mg PO DAILY 01/21/21 07/29/21 History Magnesium Oxide [Mag-Ox] 400 mg PO DAILY 01/21/21 07/29/21 History Melatonin 5 mg PO HS 01/21/21 07/29/21 History metFORMIN HCL [Glucophage] 1,000 mg PO DAILY@1700 01/21/21 07/29/21 History Budesonide-Formot 160-4.5 Mcg 2 puff INHALATION RT-BID #1 puff 01/24/21 07/29/21 Rx [Symbicort 160-4.5 Mcg Inhaler] Ascorbic Acid [Vitamin C] 500 mg PO BID tab 05/01/21 07/29/21 Rx Cholecalciferol [Vitamin D3 (25 50 mcg PO DAILY tablet 05/01/21 07/29/21 Rx Mcg = 1000 Iu)] predniSONE 10 mg PO DAILY #0 05/01/21 07/29/21 Rx Potassium Chloride [Potassium 10 meq PO BID@0900,1700 05/04/21 07/29/21 History Chloride ER] Metoprolol Tartrate [Lopressor] 100 mg PO BID 07/10/21 07/29/21 History Amoxicillin/Potassium Clav 1 tab PO BID 7 Days #14 tab 07/24/21 07/29/21 Rx [Augmentin 875-125 Tablet] Ipratropium-Albuterol Nebulize 3 ml INHALATION RT-QID ml 07/24/21 07/29/21 Rx [Duoneb 0.5 mg-3 mg/3 ml Soln] Acetaminophen Tab [Tylenol] 650 mg PO Q4H PRN 07/29/21 07/29/21 History Alendronate Sodium [Fosamax] 70 mg PO MO@0600 07/29/21 07/29/21 History Apixaban [Eliquis] 2.5 mg PO BID 07/29/21 07/29/21 History Collagenase [Santyl Ointment] 1 applic TOPICAL HS 07/29/21 07/29/21 History Diltiazem HCl [Cardizem CD] 360 mg PO DAILY 07/29/21 07/29/21 History Furosemide [Lasix] 40 mg PO BID@0600,1400 07/29/21 07/29/21 History Allergies Allergy/AdvReac Type Severity Reaction Status Date / Time Sulfa (Sulfonamide Allergy Unknown Verified 07/29/21 10:27 Antibiotics) Childhood shellfish derived [Shellfish] AdvReac Nausea & Verified 07/29/21 10:27 Vomiting & Diarrhea Physical Exam Vitals: Vital Signs Temp Pulse Pulse Resp BP BP Pulse Ox 07/30/21 11:53 97.1 F L 62 20 94/46 100 07/30/21 11:45 70 18 07/30/21 11:35 72 18 07/30/21 08:36 68 18 07/30/21 08:26 66 18 99 07/30/21 08:00 97.6 F 66 20 128/52 99 07/30/21 07:43 66 16 07/30/21 04:07 97.9 F 68 18 109/47 97 07/30/21 01:18 64 07/29/21 23:27 98.2 F 64 22 110/53 99 07/29/21 20:00 97.4 F L 85 20 104/54 99 07/29/21 19:58 76 07/29/21 19:44 80 07/29/21 18:05 85 19 07/29/21 18:00 97.8 F 85 19 98/65 94 L 07/29/21 17:00 98.2 F 81 18 105/50 97 07/29/21 16:35 78 07/29/21 16:23 80 07/29/21 16:00 76 16 101/52 07/29/21 15:00 125 H 16 97/54 07/29/21 14:40 92 15 97/54 98 07/29/21 14:08 126 H 93/62 07/29/21 13:00 105 H 18 133/68 97 07/29/21 12:00 97 18 101/52 100 Intake and Output 07/29/21 07/30/21 07/30/21 22:59 06:59 14:59 Intake Total 240 Balance 240 Intake: Oral 240 Other: Voiding Method Toilet Toilet Toilet # Voids 2 1 # Bowel Movements 1 Weight 73.936 kg Results 07/30/21 06:02 07/30/21 06:02 Cardiac Enzymes 07/29/21 07/29/21 Range/Units 13:56 16:39 Troponin I 0.058 H* 0.070 H* (0.000-0.034) ng/mL Lipids 07/30/21 Range/Units 06:02 Triglycerides 128.00 (0.00-149.00) mg/dL Cholesterol 103.00 (0.00-200.00) mg/dL HDL Cholesterol 61.90 H (40.00-60.00) mg/dL Cholesterol/HDL Ratio 1.66 Ratio CBC 07/30/21 Range/Units 06:02 WBC 6.5 (3.8-10.6) k/uL RBC 2.91 L (3.80-5.40) m/uL Hgb 8.4 L (11.4-16.0) gm/dL Hct 27.5 L (34.0-46.0) % Plt Count 149 L (150-450) k/uL Comprehensive Metabolic Panel 07/29/21 07/30/21 Range/Units 15:52 06:02 Sodium 134 L (137-145) mmol/L Potassium 3.4 L 3.1 L (3.5-5.1) mmol/L Chloride 94 L (98-107) mmol/L Carbon Dioxide 38 H (22-30) mmol/L BUN 15 (7-17) mg/dL Creatinine 0.77 (0.52-1.04) mg/dL Glucose 104 H (74-99) mg/dL Calcium 9.6 (8.4-10.2) mg/dL Current Medications Generic Name Dose Route Start Last Admin Trade Name Freq PRN Reason Stop Dose Admin Acetaminophen 650 mg 07/29/21 15:23 Acetaminophen Tab 325 Mg Tab PO Q4H PRN general discomfort Albuterol Sulfate 2.5 mg 07/29/21 15:23 Albuterol Nebulized 2.5 Mg/3 Ml INHALATION RT-QID PRN Shortness Of Breath Albuterol/Ipratropium 3 ml 07/29/21 16:00 07/30/21 11:35 Ipratropium-Albuterol 3 Ml Neb INHALATION 3 ml RT-QID RODRICK Administration Amoxicillin/Clavulanate Potassium 1 each 07/29/21 21:00 07/30/21 08:54 Amoxic-Pot Clav 875-125mg 1 Each Tab PO 07/30/21 23:00 1 each BID RODRICK Administration Apixaban 2.5 mg 07/29/21 21:00 07/30/21 08:49 Apixaban 2.5 Mg Tablet PO 2.5 mg BID RODRICK Administration Protocol Ascorbic Acid 500 mg 07/29/21 21:00 07/30/21 08:51 Ascorbic Acid 500 Mg Tab PO 500 mg BID RODRICK Administration Atorvastatin Calcium 20 mg 07/29/21 21:00 07/29/21 20:04 Atorvastatin 20 Mg Tab PO 20 mg HS RODRICK Administration Budesonide/Formoterol Fumarate 2 puff 07/29/21 20:00 07/30/21 08:26 Symbicort 160-4.5 Mcg Inhaler INHALATION 2 puff RT-BID RODRICK Administration Calcium Carbonate/Glycine 500 mg 07/30/21 09:00 07/30/21 08:49 Calcium Carbonate 500 Mg Chewable PO 500 mg DAILY R[facility]RICK Administration Cholecalciferol 50 mcg 07/30/21 09:00 07/30/21 08:48 Cholecalciferol 25 Mcg (1000 Iu) Tablet PO 50 mcg DAILY R[facility]RICK Administration Digoxin 62.5 mcg 07/30/21 09:00 07/30/21 08:51 Digoxin 125 Mcg Tab PO 62.5 mcg MOTUWETHFRSA R[facility]RICK Administration Diltiazem HCl 360 mg 07/29/21 15:30 07/30/21 08:50 Diltiazem Cd 180 Mg Cap.Er.24h PO 360 mg DAILY RODRICK Administration Furosemide 40 mg 07/30/21 06:00 07/30/21 06:22 Furosemide 40 Mg Tab PO 40 mg BID@0600,1400 [facility] Administration Insulin Aspart 0 unit 07/29/21 21:00 07/30/21 06:14 Insulin Aspart (Novolog) 100 Unit/Ml Vial SQ Not Given ACHS [facility] Protocol Isosorbide Mononitrate 30 mg 07/30/21 09:00 07/30/21 08:50 Isosorbide Mononitrate Er 30 Mg Tab.Er.24h PO 30 mg DAILY R[facility] Administration Magnesium Oxide 400 mg 07/30/21 09:00 07/30/21 08:51 Magnesium Oxide 400 Mg Tab PO 400 mg DAILY [facility] Administration Metformin HCl 1,000 mg 07/30/21 17:00 Metformin 500 Mg Tab PO DAILY@1700 [facility] Metoprolol Tartrate 100 mg 07/29/21 21:00 07/30/21 08:49 Metoprolol Tartrate 50 Mg Tab PO 100 mg BID [facility] Administration Nitroglycerin 0.4 mg 07/29/21 11:47 Nitroglycerin Sl Tabs 0.4 Mg Tab SUBLINGUAL Q5M PRN Chest Pain Collagenase 250 Unit 1 each 07/29/21 21:00 07/29/21 19:45 /Gm Ointment 30 Gm TOPICAL Not Given Tube HS [facility] Protocol Pantoprazole Sodium 40 mg 07/30/21 06:00 07/30/21 06:22 Pantoprazole 40 Mg Tablet PO 40 mg DAILY@0600 [facility] Administration Potassium Chloride 20 meq 07/29/21 21:00 07/29/21 20:04 Potassium Chloride Er 20 Meq Tab.Er PO 20 meq BID [facility] Administration Prednisone 10 mg 07/30/21 09:00 07/30/21 08:49 Prednisone 10 Mg Tab PO 10 mg DAILY [facility] Administration Sodium Chloride 10 ml 07/29/21 21:00 07/30/21 08:56 Sodium Chloride 0.9% Flush 10 Ml Syringe IV 10 ml BID [facility] Administration Intake and Output 07/29/21 07/30/21 07/30/21 22:59 06:59 14:59 Intake Total 240 Balance 240 Intake: Oral 240 Other: Voiding Method Toilet Toilet Toilet # Voids 2 1 # Bowel Movements 1 Weight 73.936 kg 07/30/21 06:02 07/30/21 06:02
--- NOTE | 2021-07-30 12:32 | FL ---
EXAMINATION TYPE: FL barium swallow w video DATE OF EXAM: 07/30/2021 CLINICAL HISTORY: 89-year-old female trouble swallowing, rule out oropharyngeal Dysphagia. TECHNIQUE: Deglutition study is performed utilizing thin liquid barium, honey and nectar thick liqui d barium, barium thick applesauce, and barium coated cracker. COMPARISON: None. Total fluoroscopy time: 1 minute 48 seconds. Total images: None. Real-time fluoroscopy support was provided to speech pathology. FINDINGS: The oral and pharyngeal phases show satisfactory initiation and propagation with all modalities teste d. Normal mastication is seen with solid modalities tested. There is no evidence of penetration or aspiration with any modality tested. No significant pharyngeal residue was appreciated. At least mod erate cricopharyngeus muscle hypertrophy is noted. IMPRESSION: Functional swallow. We note that there is at least moderate CP muscle hypertrophy. Please refer to speech therapist notes for further details if necessary.
[2021-07-30 16:51] LABS: Glucose,Whole Blood 252 mg/dL (75-99)
[2021-07-30] MEDS ORDERED: metFORMIN 500 MG TAB PO SCH (17:00)
[2021-07-30 20:11] LABS: Glucose,Whole Blood 196 mg/dL (75-99)
[2021-07-30] MEDS: ATORVASTATIN 20 MG TAB PO SCH (22:18)
[2021-07-30] MEDS: COLLAGENASE 250 UNIT/GM OINTMENT 30 GM TUBE TOPICAL SCH (22:39)
[2021-07-31 05:53] LABS: Glucose,Whole Blood 111 mg/dL (75-99)
[2021-07-31] MEDS: INSULIN ASPART (NovoLOG) 100 UNIT/ML VIAL SQ SCH ×2 (06:01→11:51)
[2021-07-31] MEDS: PANTOPRAZOLE 40 MG TABLET PO SCH (06:21)
[2021-07-31] MEDS: FUROSEMIDE 40 MG TAB PO SCH (06:21)
[2021-07-31 07:56] LABS: Calcium 9.5 mg/dL (8.4-10.2); Potassium 4.2 mmol/L (3.5-5.1)
[2021-07-31] MEDS: SYMBICORT 160-4.5 MCG INHALER INHALATION SCH (08:14)
[2021-07-31] MEDS: IPRATROPIUM-ALBUTEROL 3 ML NEB INHALATION SCH ×2 (08:14→12:13)
[2021-07-31] MEDS: CALCIUM CARBONATE 500 MG CHEWABLE PO SCH (08:58)
[2021-07-31] MEDS: APIXABAN 2.5 MG TABLET PO SCH (08:58)
[2021-07-31] MEDS: DILTIAZEM CD 180 MG CAP.ER.24H PO SCH (08:58)
[2021-07-31] MEDS: METOPROLOL TARTRATE 50 MG TAB PO SCH ×2 (08:59)
[2021-07-31] MEDS: CHOLECALCIFEROL 25 MCG (1000 IU) TABLET PO SCH (08:59)
[2021-07-31] MEDS: POTASSIUM CHLORIDE ER 20 MEQ TAB.ER PO SCH (08:59)
[2021-07-31] MEDS: ISOSORBIDE MONONITRATE ER 30 MG TAB.ER.24H PO SCH (08:59)
[2021-07-31] MEDS: MAGNESIUM OXIDE 400 MG TAB PO SCH (08:59)
[2021-07-31] MEDS: ASCORBIC ACID 500 MG TAB PO SCH (08:59)
[2021-07-31] MEDS: predniSONE 10 MG TAB PO SCH (09:05)
[2021-07-31] MEDS: DIGOXIN 125 MCG TAB PO SCH (09:05)
[2021-07-31 09:28] VITALS: TEMP 98.1
--- NOTE | 2021-07-31 09:42 | P.HPIM ---
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 Was recently discharged from [facility] after she was admitted for lower GI bleed and she did receive one units of PRBC and her hemoglobin was stable after she was taken off Eliquis on the discharge she was at 11.5, then she restarted Eliquis. Subsequently readmitted on July 17 treated for acute hypoxic respiratory failure COPD exacerbation and pneumonia along with diastolic heart failure and acute blood loss anemia due to acute GI bleed status post EGD and colonoscopy with Dr. Hay on 07/21 which found minimal gastritis and diverticulosis. Patient's Eliquis was placed and continued on hold and she was stabilized, discharged to [facility] for subacute rehab. Patient developed chest pain management going on for 4 hours, she has weakness and difficulty breathing. Chest pain was on the left side when into her left arm and constant. EKG was atrial fibrillation/flutter heart rate of 107, ST depression in lateral leads. Chest x-ray persistent but improved makes infiltrates mid and lower lung zones bilaterally. WBC 10.3, hemoglobin 9.5, platelet count 169. Sodium 134, potassium 3.4, chloride 90, CO2 37, BUN 16 creatinine 0.77. Blood sugar 210. Troponin 0.031, 0.058, 0.070. Coronavirus PCR not detected. Patient was admitted to the cardiac stepdown unit and cardiology consult was requested. REVIEW OF SYSTEMS Constitutional: no fever no chills, no night sweats. No weight change. Reports weakness, Reports fatigue no lethargy. No daytime sleepiness. HEENT: No headache. No blurred vision or double vision, no loss of vision. No loss of Hearing, no ringing in the ears, no dizziness. No nasal drainage or congestion. No epistaxis. No sore throat, no loss of taste Lungs: Reports shortness of breath, minimal cough, no sputum production. Reports wheezing. Cardiovascular: Reports chest pain-resolved, no lower extremity edema. positive for palpitations. No paroxysmal nocturnal dyspnea. No orthopnea. No lighth eadedness or dizziness. No syncopal episodes. Abdominal: No abdominal pain. No nausea, vomiting. No diarrhea. No constipation. Reports bloody or tarry stools.. No loss of appetite. Genitourinary: No dysuria, increased frequency, urgency. No urinary retention. Musculoskeletal: No myalgias. positive for muscle weakness, no gait dysfunction, no frequent falls. No back pain. No neck pain. Integumentary: No wounds, no lesions. No rash or pruritus. No unusual bruising. No change in hair or nails. Neurologic: No aphasia. No facial droop. No change in mentation. No head injury. No headache. No paralysis. No paresthesia. Psychiatric: No depression. No anxiety. No mood swings. Endocrine: No abnormal blood sugars. MEDICAL HISTORY Hypertension, hypertensive cardiovascular disease Hyperlipidemia Paroxysmal atrial fibrillation Moderate to severe COPD O2 dependence with chronic hypoxic respiratory failure Macular degeneration Gastroesophageal reflux disease Generalized osteoarthritis steroid -induced osteoporosis. chronic diastolic heart failure. Cor pulmonale. Diabetes mellitus type 2 Acute GI bleed SURGICAL HISTORY Pacemaker implantation in 2018 Tonsillectomy Hernia repair Removal of skin cancer Bilateral cataract removal and intraocular lens implants EGD and colonoscopy SOCIAL HISTORY Patient states that she was a smoker less than a pack a day for 20-30 years and quit 10 years ago. She denies any illicit drug use or alcohol use. She currently lives at home alone. FAMILY HISTORY Father at age 91 with history of heart disease. Mother at age 87 from pancreatic cancer. Patient has 1 brother that at age 93 from liver cancer. Patient has 2 sisters with no major medical problems. Patient has a total of 4 children, 3 daughters and 1 son. One daughter at a young age and a motor vehicle accident. PHYSICAL EXAMINATION Gen: This is an 89-year-old female, lying down in bed in no acute distress. HEENT: Head is atraumatic, normocephalic. Pupils equal, round. Sclerae is anicteric, mucous membranes of the mouth are somewhat dry. NECK: Supple. No JVD. No lymphadenopathy. No thyromegaly, decreased carotid upst rokes bilaterally. Chest: decrease breath sounds at the bases with scattered rhonchi, minimal expi ratory wheezes, no chest wall tenderness no intercostal retractions. No chest wall tenderness. Heart: first heart sound is depressed second heart sound is normal there FLORY 2/6 located at the left sternal border, irregularly irregular due to atrial fibrillation. Tachycardia. ABDOMEN: Soft, nontender, nondistended, positive bowel sounds, no hepatosplenomegaly. EXTREMITIES: +2 pedal edema. No calf tenderness. Dorsalis pedis +1 bilaterally. NEUROLOGICAL: Patient is awake, alert and oriented x3. Cranial nerves 2 through 12 are grossly intact muscle christopher 4 out of 5 in upper and lower extremities bilaterally., ASSESSMENT AND PLAN 1. Acute chest pain most likely unstable angina, possibly related to atrial fibrillation. consult with cardiology, continue cardiac monitoring, continue patient on Lipitor 20 mg at bedtime, Imdur 15 mg daily, Lopressor 100 mg twice daily. 2. Chronic Hypoxemic respiratory failure due to COPD with possible gram negative pneumonia along with chronic diastolic heart failure. Continue patient on Ventolin inhaler 1 puff 4 times daily as needed, Augmentin 875 mg 1 tablet twice daily, Symbicort 2 puffs twice daily, Lasix 40 mg twice daily, DuoNeb treatments 4 times daily, prednisone 10 mg daily. 3. Recent GI bleed status post EGD and colonoscopy on last admission. Continue omeprazole 20 mg daily, patient has been resumed on Eliquis. No active bleeding 4. Chronic persistent atrial fibrillation. Continue Digoxin 62.5 g Tuesday through Tuesday, Cardizem CD 360 mg daily, Lopressor 100 mg twice daily, Eliquis 2.5 mg twice daily. 5. Prior history of COVID-19 pneumonia. 6. Hypertension and hypertensive cardiovascular disease. Continue Metoprolol 100 mg orally bid. 7. Hyperlipidemia. Continue Lipitor 20 mg orally daily. 8. Chronic diastolic heart failure. Metoprolol 100 mg orally bid, Lasix 40 mg twice daily. 9. GERD. we will continue with omeprazole 10. CAD. Continue with Metoprolol 100 mg orally bid, Lipitor 20 mg orally daily and Imdur 15 mg orally daily. 11. Diabetes mellitus type 2. Resume metformin and hold Farxiga if it is not available in the hospital, we will start sliding scale insulin. 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 we will hold off Residronate. 13. DVT prophylaxis. Continue Eliquis. 14. GI Prophylaxis. we will continue with protonix 40 mg IV push every 12 hours 17. PT and social service worker consult for Sub acute rehab and return to [facility]. Patient will be admitted to the hospital for a minimum of 2 night stay. Past Medical History Past Medical History: Atrial Fibrillation, Cancer, Heart Failure, COPD, GERD/Reflux, Hyperlipidemia, Hypertension, Osteoarthritis (OA) Additional Past Medical History / Comment(s): skin cancer on scalp, macular degeneration History of Any Multi-Drug Resistant Organisms: None Reported Past Surgical History: Hernia Repair, Pacemaker, Tonsillectomy Additional Past Surgical History / Comment(s): skin cancer removed from scalp, anderw cataracts Past Anesthesia/Blood Transfusion Reactions: No Reported Reaction Type of Cardiac Device: Permanent Pacemaker Device Placement Date:: 2017 Smoking Status: Former smoker - Past Family History Father Family Medical History: Coronary Artery Disease (CAD) Additional Family Medical History / Comment(s): Father at age 91 with history of heart disease. Mother Family Medical History: Cancer Additional Family Medical History / Comment(s): Mother at age 87 from pancreatic cancer. Brother(s) Additional Family Medical History / Comment(s): Patient has 1 brother that at age 93 from liver cancer. Sister(s) Additional Family Medical History / Comment(s): Patient has 2 sisters with no major medical problems. Daughter(s) Additional Family Medical History / Comment(s): Patient has a total of 4 children, 3 daughters and 1 son. One daughter at a young age and a motor vehicle accident. Medications and Allergies Home Medications Medication Instructions Recorded Confirmed Type Albuterol Inhaler [Ventolin Hfa 1 puff INHALATION RT-QID PRN 06/16/20 07/29/21 History Inhaler] Atorvastatin [Lipitor] 20 mg PO HS 06/16/20 07/29/21 History Digoxin [Digitek] 62.5 mcg PO MOTUWETHFRSA 06/16/20 07/29/21 History Isosorbide Mononitrate ER [Imdur] 15 mg PO DAILY 06/16/20 07/29/21 History Omeprazole 20 mg PO DAILY@0600 06/16/20 07/29/21 History Calcium Carbonate [Calcium] 600 mg PO DAILY 01/21/21 07/29/21 History Cyanocobalamin (Vitamin B-12) 1,000 mcg PO DAILY 01/21/21 07/29/21 History [Vitamin B-12] Dapagliflozin Propanediol [Farxiga] 5 mg PO DAILY 01/21/21 07/29/21 History Magnesium Oxide [Mag-Ox] 400 mg PO DAILY 01/21/21 07/29/21 History Melatonin 5 mg PO HS 01/21/21 07/29/21 History metFORMIN HCL [Glucophage] 1,000 mg PO DAILY@1700 01/21/21 07/29/21 History Budesonide-Formot 160-4.5 Mcg 2 puff INHALATION RT-BID #1 puff 01/24/21 07/29/21 Rx [Symbicort 160-4.5 Mcg Inhaler] Ascorbic Acid [Vitamin C] 500 mg PO BID tab 05/01/21 07/29/21 Rx Cholecalciferol [Vitamin D3 (25 50 mcg PO DAILY tablet 05/01/21 07/29/21 Rx Mcg = 1000 Iu)] predniSONE 10 mg PO DAILY #0 05/01/21 07/29/21 Rx Potassium Chloride [Potassium 10 meq PO BID@0900,1700 05/04/21 07/29/21 History Chloride ER] Metoprolol Tartrate [Lopressor] 100 mg PO BID 07/10/21 07/29/21 History Amoxicillin/Potassium Clav 1 tab PO BID 7 Days #14 tab 07/24/21 07/29/21 Rx [Augmentin 875-125 Tablet] Ipratropium-Albuterol Nebulize 3 ml INHALATION RT-QID ml 07/24/21 07/29/21 Rx [Duoneb 0.5 mg-3 mg/3 ml Soln] Acetaminophen Tab [Tylenol] 650 mg PO Q4H PRN 07/29/21 07/29/21 History Alendronate Sodium [Fosamax] 70 mg PO MO@0600 07/29/21 07/29/21 History Apixaban [Eliquis] 2.5 mg PO BID 07/29/21 07/29/21 History Collagenase [Santyl Ointment] 1 applic TOPICAL HS 07/29/21 07/29/21 History Diltiazem HCl [Cardizem CD] 360 mg PO DAILY 07/29/21 07/29/21 History Furosemide [Lasix] 40 mg PO BID@0600,1400 07/29/21 07/29/21 History Allergies Allergy/AdvReac Type Severity Reaction Status Date / Time Sulfa (Sulfonamide Allergy Unknown Verified 07/29/21 10:27 Antibiotics) Childhood shellfish derived [Shellfish] AdvReac Nausea & Verified 07/29/21 10:27 Vomiting & Diarrhea Physical Exam Vitals: Vital Signs Temp Pulse Pulse Resp BP Pulse Ox 07/31/21 08:27 66 07/31/21 08:15 66 07/31/21 04:00 98.0 F 60 18 105/51 98 07/31/21 02:00 60 18 07/31/21 00:00 98.6 F 66 18 110/52 100 07/30/21 20:03 97.1 F L 60 18 98/61 98 07/30/21 20:00 60 18 07/30/21 19:44 60 07/30/21 19:34 62 07/30/21 16:00 99.2 F 53 L 19 109/54 100 07/30/21 15:56 60 07/30/21 15:52 100 07/30/21 15:47 62 07/30/21 11:53 97.1 F L 62 20 94/46 100 07/30/21 11:45 70 18 07/30/21 11:35 72 18 Intake and Output 07/30/21 07/31/21 07/31/21 22:59 06:59 14:59 Intake Total 360 Balance 360 Intake: Oral 360 Other: Voiding Method Toilet Toilet # Voids 1 Results CBC & Chem 7: 07/30/21 06:02 07/31/21 06:54 Labs: Abnormal Lab Results - Last 24 Hours (Table) 07/30/21 07/30/21 07/30/21 Range/Units 06:02 11:41 16:50 Sodium (137-145) mmol/L Chloride (98-107) mmol/L Carbon Dioxide (22-30) mmol/L Creatinine (0.52-1.04) mg/dL Glucose (74-99) mg/dL POC Glucose (mg/dL) 149 H 252 H (75-99) mg/dL HDL Cholesterol 61.90 H (40.00-60.00) mg/dL 07/30/21 07/31/21 07/31/21 Range/Units 20:09 05:50 06:54 Sodium 133 L (137-145) mmol/L Chloride 95 L (98-107) mmol/L Carbon Dioxide 37 H (22-30) mmol/L Creatinine 1.13 H (0.52-1.04) mg/dL Glucose 107 H (74-99) mg/dL POC Glucose (mg/dL) 196 H 111 H (75-99) mg/dL HDL Cholesterol (40.00-60.00) mg/dL Thrombosis Risk Factor Assmnt - Choose All That Apply Any of the Below Risk Factors Present?: Yes Each Factor Represents 1 point: Abnormal pulmonary function (COPD) Other Risk Factors: Yes Each Risk Factor Represents 3 Points: Age 75 years or older Other congenital or acquired thrombophilia - If yes, enter type in comment: No Thrombosis Risk Factor Assessment Total Risk Factor Score: 4 Thrombosis Risk Factor Assessment Level: Moderate Risk
--- NOTE | 2021-07-31 09:53 | P.PN ---
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 Was recently discharged from [facility] after she was admitted for lower GI bleed and she did receive one units of PRBC and her hemoglobin was stable after she was taken off Eliquis on the discharge she was at 11.5, then she restarted Eliquis. Subsequently readmitted on July 17 treated for acute hypoxic respiratory failure COPD exacerbation and pneumonia along with diastolic heart failure and acute blood loss anemia due to acute GI bleed status post EGD and colonoscopy with Dr. Hay on 07/21 which found minimal gastritis and diverticulosis. Patient's Eliquis was placed and continued on hold and she was stabilized, discharged to [facility] for subacute rehab. Patient developed chest pain management going on for 4 hours, she has weakness and difficulty breathing. Chest pain was on the left side when into her left arm and constant. EKG was atrial fibrillation/flutter heart rate of 107, ST depression in lateral leads. Chest x-ray persistent but improved makes infiltrates mid and lower lung zones bilaterally. WBC 10.3, hemoglobin 9.5, platelet count 169. Sodium 134, potassium 3.4, chloride 90, CO2 37, BUN 16 creatinine 0.77. Blood sugar 210. Troponin 0.031, 0.058, 0.070. Coronavirus PCR not detected. Patient was admitted to the cardiac stepdown unit and cardiology consult was requested. 07/30: Patient is seen today on the CSD unit. She denies having any chest pain and did not have any through the night. She slept well for a few hours last night. Patient has less lower extremity edema and weeping is improved. She has not had a bowel movement today and has not noticed any blood in her stools lately. She is complaining of feeling that something is stuck in the back of her throat but is swallowing okay. She is scheduled for modified barium swallow today with speech therapy. Patient has converted to sinus rhythm. She's been afebrile, heart rate is in the 60s, blood pressure 128/52, pulse ox 99% on 2 L. Repeat blood work reveals hemoglobin of 8.4, platelet count 149. Sodium 134, potassium 3.1, chloride 94, CO2 38, creatinine 0.77 and BUN 15. Blood sugars have been running between 129 and 210. Patient plans to return to [facility] to [facility] course of subacute rehab. PT and OT are also following. Cardiology will be seeing the patient today. REVIEW OF SYSTEMS Constitutional: no fever no chills, no night sweats. No weight change. Reports weakness, Reports fatigue no lethargy. No daytime sleepiness. HEENT: No headache. No blurred vision or double vision, no loss of vision. No loss of Hearing, no ringing in the ears, no dizziness. No nasal drainage or congestion. No epistaxis. No sore throat, no loss of taste. Lungs: Reports shortness of breath, minimal cough, no sputum production. Repor ts wheezing. Cardiovascular: Denies chest pain, no lower extremity edema. positive for palpitations. No paroxysmal nocturnal dyspnea. No orthopnea. No lightheadedness or dizziness. No syncopal episodes. Abdominal: No abdominal pain. No nausea, vomiting. No diarrhea. No constipation. Denies any recent bloody or tarry stools. Decreased appetite. Genitourinary: No dysuria, increased frequency, urgency. No urinary retention. Musculoskeletal: No myalgias. positive for muscle weakness, no gait dysfunction, no frequent falls. No back pain. No neck pain. Integumentary: No wounds, no lesions. No rash or pruritus. No unusual bruising. No change in hair or nails. Neurologic: No aphasia. No facial droop. No change in mentation. No head injury. No headache. No paralysis. No paresthesia. Psychiatric: No depression. No anxiety. No mood swings. Endocrine: No abnormal blood sugars. PHYSICAL EXAMINATION Gen: This is an 89-year-old female sitting on the edge of her bed in no acute distress. HEENT: Head is atraumatic, normocephalic. Pupils equal, round. Sclerae is anicteric, mucous membranes of the mouth are somewhat dry. NECK: Supple. No JVD. No lymphadenopathy. No thyromegaly, decreased carotid upstrokes bilaterally. Chest: decrease breath sounds at the bases with scattered rhonchi, minimal expiratory wheezes, no chest wall tenderness no intercostal retractions. No chest wall tenderness. Heart: first heart sound is depressed second heart sound is normal there FLORY 2/6 located at the left sternal border, irregularly irregular due to atrial fibrillation. Tachycardia. ABDOMEN: Soft, nontender, nondistended, positive bowel sounds, no hepatosplenomegaly. EXTREMITIES: no pedal edema. No calf tenderness. Dorsalis pedis +1 bilatera lly. NEUROLOGICAL: Patient is awake, alert and oriented x3. Cranial nerves 2 through 12 are grossly intact muscle christopher 4 out of 5 in upper and lower extremities bilaterally., ASSESSMENT AND PLAN 1. Acute chest pain most likely unstable angina, possibly related to atrial f ibrillation. consult with cardiology, continue cardiac monitoring, continue patient on Lipitor 20 mg at bedtime, Imdur 15 mg daily, Lopressor 100 mg twice daily. 2. Chronic Hypoxemic respiratory failure due to COPD with possible gram negative pneumonia along with chronic diastolic heart failure. Continue patient on Ventolin inhaler 1 puff 4 times daily as needed, Augmentin 875 mg 1 tablet twice daily, Symbicort 2 puffs twice daily, Lasix 40 mg twice daily, DuoNeb treatments 4 times daily, prednisone 10 mg daily. 3. Recent GI bleed status post EGD and colonoscopy on last admission. Continue omeprazole 20 mg daily, patient has been resumed on Eliquis. No active bleeding 4. Chronic persistent atrial fibrillation. Continue Digoxin 62.5 g Tuesday through Tuesday, Cardizem CD 360 mg daily, Lopressor 100 mg twice daily, Eliquis 2.5 mg twice daily. 5. Prior history of COVID-19 pneumonia. 6. Hypertension and hypertensive cardiovascular disease. Continue Metoprolol 100 mg orally bid. 7. Hyperlipidemia. Continue Lipitor 20 mg orally daily. 8. Chronic diastolic heart failure. Metoprolol 100 mg orally bid, Lasix 40 mg twice daily. 9. GERD. we will continue with omeprazole 10. CAD. Continue with Metoprolol 100 mg orally bid, Lipitor 20 mg orally daily and Imdur 15 mg orally daily. 11. Diabetes mellitus type 2. Resume metformin and hold Farxiga if it is not a vailable in the hospital, we will start sliding scale insulin. 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 we will hold off Residronate. 13. DVT prophylaxis. Continue Eliquis. 14. GI Prophylaxis. we will continue with protonix 40 mg IV push every 12 hours 17. PT and social insurance specialist consult for Sub acute rehab and return to [facility]. Impression and plan of care have been directed as dictated by the signing physician. Noelle Gilbert nurse practitioner acting as scribe for signing physician. Objective - Vital Signs Vital signs: Vital Signs Temp 97.9 F 07/30/21 04:07 Pulse 68 07/30/21 04:07 Resp 18 07/30/21 04:07 BP 109/47 07/30/21 04:07 Pulse Ox 97 07/30/21 04:07 Intake & Output 07/29/21 07/30/21 07/30/21 18:59 06:59 18:59 Weight 73.936 kg Other: Voiding Method Toilet # Voids 2 - Labs CBC & Chem 7: 07/30/21 06:02 07/31/21 06:54 Labs: Abnormal Lab Results - Last 24 Hours (Table) 07/29/21 07/29/21 07/29/21 Range/Units 10:19 10:19 10:19 RBC 3.28 L (3.80-5.40) m/uL Hgb 9.5 L (11.4-16.0) gm/dL Hct 29.6 L (34.0-46.0) % MCHC (31.0-37.0) g/dL Plt Count (150-450) k/uL Neutrophils # 8.5 H (1.3-7.7) k/uL Lymphocytes # 0.9 L (1.0-4.8) k/uL APTT 21.1 L (22.0-30.0) sec Sodium 134 L (137-145) mmol/L Potassium 2.3 L* (3.5-5.1) mmol/L Chloride 90 L (98-107) mmol/L Carbon Dioxide 37 H (22-30) mmol/L Glucose 190 H (74-99) mg/dL POC Glucose (mg/dL) (75-99) mg/dL Magnesium 1.4 L (1.6-2.3) mg/dL Troponin I (0.000-0.034) ng/mL Total Protein 4.7 L (6.3-8.2) g/dL Albumin 2.9 L (3.5-5.0) g/dL 07/29/21 07/29/21 07/29/21 Range/Units 13:56 15:52 16:39 RBC (3.80-5.40) m/uL Hgb (11.4-16.0) gm/dL Hct (34.0-46.0) % MCHC (31.0-37.0) g/dL Plt Count (150-450) k/uL Neutrophils # (1.3-7.7) k/uL Lymphocytes # (1.0-4.8) k/uL APTT (22.0-30.0) sec Sodium (137-145) mmol/L Potassium 3.4 L (3.5-5.1) mmol/L Chloride (98-107) mmol/L Carbon Dioxide (22-30) mmol/L Glucose (74-99) mg/dL POC Glucose (mg/dL) (75-99) mg/dL Magnesium (1.6-2.3) mg/dL Troponin I 0.058 H* 0.070 H* (0.000-0.034) ng/mL Total Protein (6.3-8.2) g/dL Albumin (3.5-5.0) g/dL 07/29/21 07/30/21 07/30/21 Range/Units 20:17 05:46 06:02 RBC (3.80-5.40) m/uL Hgb (11.4-16.0) gm/dL Hct (34.0-46.0) % MCHC (31.0-37.0) g/dL Plt Count (150-450) k/uL Neutrophils # (1.3-7.7) k/uL Lymphocytes # (1.0-4.8) k/uL APTT (22.0-30.0) sec Sodium 134 L (137-145) mmol/L Potassium 3.1 L (3.5-5.1) mmol/L Chloride 94 L (98-107) mmol/L Carbon Dioxide 38 H (22-30) mmol/L Glucose 104 H (74-99) mg/dL POC Glucose (mg/dL) 210 H 129 H (75-99) mg/dL Magnesium (1.6-2.3) mg/dL Troponin I (0.000-0.034) ng/mL Total Protein (6.3-8.2) g/dL Albumin (3.5-5.0) g/dL 07/30/21 Range/Units 06:02 RBC 2.91 L (3.80-5.40) m/uL Hgb 8.4 L (11.4-16.0) gm/dL Hct 27.5 L (34.0-46.0) % MCHC 30.7 L (31.0-37.0) g/dL Plt Count 149 L (150-450) k/uL Neutrophils # (1.3-7.7) k/uL Lymphocytes # (1.0-4.8) k/uL APTT (22.0-30.0) sec Sodium (137-145) mmol/L Potassium (3.5-5.1) mmol/L Chloride (98-107) mmol/L Carbon Dioxide (22-30) mmol/L Glucose (74-99) mg/dL POC Glucose (mg/dL) (75-99) mg/dL Magnesium (1.6-2.3) mg/dL Troponin I (0.000-0.034) ng/mL Total Protein (6.3-8.2) g/dL Albumin (3.5-5.0) g/dL
--- NOTE | 2021-07-31 10:00 | P.PN ---
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 Was recently discharged from [facility] after she was admitted for lower GI bleed and she did receive one units of PRBC and her hemoglobin was stable after she was taken off Eliquis on the discharge she was at 11.5, then she restarted Eliquis. Subsequently readmitted on July 17 treated for acute hypoxic respiratory failure COPD exacerbation and pneumonia along with diastolic heart failure and acute blood loss anemia due to acute GI bleed status post EGD and colonoscopy with Dr. Hay on 07/21 which found minimal gastritis and diverticulosis. Patient's Eliquis was placed and continued on hold and she was stabilized, discharged to [facility] for subacute rehab. Patient developed chest pain management going on for 4 hours, she has weakness and difficulty breathing. Chest pain was on the left side when into her left arm and constant. EKG was atrial fibrillation/flutter heart rate of 107, ST depression in lateral leads. Chest x-ray persistent but improved makes infiltrates mid and lower lung zones bilaterally. WBC 10.3, hemoglobin 9.5, platelet count 169. Sodium 134, potassium 3.4, chloride 90, CO2 37, BUN 16 creatinine 0.77. Blood sugar 210. Troponin 0.031, 0.058, 0.070. Coronavirus PCR not detected. Patient was admitted to the cardiac stepdown unit and cardiology consult was requested. 07/30: Patient is seen today on the CSD unit. She denies having any chest pain and did not have any through the night. She slept well for a few hours last night. Patient has less lower extremity edema and weeping is improved. She has not had a bowel movement today and has not noticed any blood in her stools lately. She is complaining of feeling that something is stuck in the back of her throat but is swallowing okay. She is scheduled for modified barium swallow today with speech therapy. Patient has converted to sinus rhythm. She's been afebrile, heart rate is in the 60s, blood pressure 128/52, pulse ox 99% on 2 L. Repeat blood work reveals hemoglobin of 8.4, platelet count 149. Sodium 134, potassium 3.1, chloride 94, CO2 38, creatinine 0.77 and BUN 15. Blood sugars have been running between 129 and 210. Patient plans to return to [facility] to complete course of subacute rehab. PT and OT are also following. Cardiology will be seeing the patient today. 07/31: Patient was seen by cardiology yesterday and Imdur increased to 30 mg daily. Patient remains in a sinus rhythm. She underwent a modified barium swallow yesterday that showed moderate cricopharyngeal muscle hypertrophy speech therapy is recommended turning her head right or left when she is swallowing to allow the CP muscle to relax. Patient states all night she had difficulty sleeping because she felt like there was something in the back of her throat. She is complaining of some difficulty breathing that seems to be chronic no worsening today and she denies any chest pain. Discussed discharge planning and she does not want to return to [facility] and consult with Dr. Joyce for inpatient rehab has been added. Backup plan will be for [facility]. REVIEW OF SYSTEMS Constitutional: no fever no chills, no night sweats. No weight change. Reports weakness, Reports fatigue no lethargy. No daytime sleepiness. HEENT: No headache. No blurred vision or double vision, no loss of vision. No loss of Hearing, no ringing in the ears, no dizziness. No nasal drainage or congestion. No epistaxis. No sore throat, no loss of taste. Lungs: Reports shortness of breath, minimal cough, no sputum production. Reports wheezing. Cardiovascular: Denies chest pain, no lower extremity edema. positive for palpitations. No paroxysmal nocturnal dyspnea. No orthopnea. No lightheadedness or dizziness. No syncopal episodes. Abdominal: No abdominal pain. No nausea, vomiting. No diarrhea. No constipation. Denies any recent bloody or tarry stools. Decreased appetite. Genitourinary: No dysuria, increased frequency, urgency. No urinary retention. Musculoskeletal: No myalgias. positive for muscle weakness, no gait dysfunction, no frequent falls. No back pain. No neck pain. Integumentary: No wounds, no lesions. No rash or pruritus. No unusual bruising. No change in hair or nails. Neurologic: No aphasia. No facial droop. No change in mentation. No head injury. No headache. No paralysis. No paresthesia. Psychiatric: No depression. No anxiety. No mood swings. Endocrine: No abnormal blood sugars. PHYSICAL EXAMINATION Gen: This is an 89-year-old female sitting on the edge of her bed in no acute distress. HEENT: Head is atraumatic, normocephalic. Pupils equal, round. Sclerae is anicteric, mucous membranes of the mouth are somewhat dry. NECK: Supple. No JVD. No lymphadenopathy. No thyromegaly, decreased carotid upstrokes bilaterally. Chest: decrease breath sounds at the bases with scattered rhonchi, minimal expiratory wheezes, no chest wall tenderness no intercostal retractions. No chest wall tenderness. Heart: first heart sound is depressed second heart sound is normal there FLORY 2/6 located at the left sternal border, irregularly irregular due to atrial fibrillation. Tachycardia. ABDOMEN: Soft, nontender, nondistended, positive bowel sounds, no hepatosplenomegaly. EXTREMITIES: no pedal edema. No calf tenderness. Dorsalis pedis +1 bilaterally. NEUROLOGICAL: Patient is awake, alert and oriented x3. Cranial nerves 2 through 12 are grossly intact muscle christopher 4 out of 5 in upper and lower extremities bilaterally., ASSESSMENT AND PLAN 1. Acute chest pain most likely unstable angina, possibly related to atrial fibrillation. consult with cardiology, continue cardiac monitoring, continue patient on Lipitor 20 mg at bedtime, Imdur increased to 30 mg daily, Lopressor 100 mg twice daily. 2. Chronic Hypoxemic respiratory failure due to COPD with possible gram negative pneumonia along with chronic diastolic heart failure. Continue patient on Ventolin inhaler 1 puff 4 times daily as needed, Augmentin 875 mg 1 tablet twice daily, Symbicort 2 puffs twice daily, Lasix 40 mg twice daily, DuoNeb treatments 4 times daily, prednisone 10 mg daily. 3. Recent GI bleed status post EGD and colonoscopy on last admission. Continue omeprazole 20 mg daily, patient has been resumed on Eliquis. No active bleeding 4. Chronic persistent atrial fibrillation. Continue Digoxin 62.5 g Tuesday through Tuesday, Cardizem CD 360 mg daily, Lopressor 100 mg twice daily, Eliquis 2.5 mg twice daily. 5. Prior history of COVID-19 pneumonia. 6. Hypertension and hypertensive cardiovascular disease. Continue Metoprolol 100 mg orally bid. 7. Hyperlipidemia. Continue Lipitor 20 mg orally daily. 8. Chronic diastolic heart failure. Metoprolol 100 mg orally bid, Lasix 40 mg twice daily. 9. GERD. we will continue with omeprazole 10. CAD. Continue with Metoprolol 100 mg orally bid, Lipitor 20 mg orally daily and Imdur 15 mg orally daily. 11. Diabetes mellitus type 2. Resume metformin and hold Farxiga if it is not available in the hospital, we will start sliding scale insulin. 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 we will hold off Residronate. 13. DVT prophylaxis. Continue Eliquis. 14. GI Prophylaxis. we will continue with protonix 40 mg IV push every 12 hours 17. PT and social worker aide consult for Sub acute rehab at [facility]. Impression and plan of care have been directed as dictated by the signing physician. Noelle Gilbert nurse practitioner acting as scribe for signing physician. Objective - Vital Signs Vital signs: Vital Signs Temp 98.0 F 07/31/21 04:00 Pulse 66 07/31/21 08:27 Resp 18 07/31/21 04:00 BP 105/51 07/31/21 04:00 Pulse Ox 98 07/31/21 04:00 Intake & Output 07/30/21 07/31/21 07/31/21 18:59 06:59 18:59 Intake Total 420 360 Balance 420 360 Intake: Oral 420 360 Other: Voiding Method Toilet Toilet # Voids 1 1 # Bowel Movements 1 - Labs CBC & Chem 7: 07/30/21 06:02 07/31/21 06:54 Labs: Abnormal Lab Results - Last 24 Hours (Table) 07/30/21 07/30/21 07/30/21 Range/Units 06:02 11:41 16:50 Sodium (137-145) mmol/L Chloride (98-107) mmol/L Carbon Dioxide (22-30) mmol/L Creatinine (0.52-1.04) mg/dL Glucose (74-99) mg/dL POC Glucose (mg/dL) 149 H 252 H (75-99) mg/dL HDL Cholesterol 61.90 H (40.00-60.00) mg/dL 07/30/21 07/31/21 07/31/21 Range/Units 20:09 05:50 06:54 Sodium 133 L (137-145) mmol/L Chloride 95 L (98-107) mmol/L Carbon Dioxide 37 H (22-30) mmol/L Creatinine 1.13 H (0.52-1.04) mg/dL Glucose 107 H (74-99) mg/dL POC Glucose (mg/dL) 196 H 111 H (75-99) mg/dL HDL Cholesterol (40.00-60.00) mg/dL
--- NOTE | 2021-07-31 10:09 | P.DS ---
Providers Date of admission: 07/29/21 11:48 Expected date of discharge: 07/31/21 Attending physician: Phoenix Gutiérrez Consults: 07/29/21 11:48 Consult Physician Urgent Consulting Provider: Josh Pina Consult Reason/Comments: cp Do you want consulting provider notified?: Yes 07/31/21 07:31 Consult Physician Routine Consulting Provider: Jt Joyce Consult Reason/Comments: ip rehab Do you want consulting provider notified?: Yes Primary care physician: Phoenix Gutiérrez Hospital Course: HISTORY OF PRESENT ILLNESS This is an 89-year old- female patient of [employer] with a previous medical history significant for hypertension and hypertensive cardiovascular disease, hyperlipidemia, Paroxysmal atrial fibrillation, 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 Was recently discharged from [facility] after she was admitted for lower GI bleed and she did receive one units of PRBC and her hemoglobin was stable after she was taken off Eliquis on the discharge she was at 11.5, then she restarted Eliquis. Subsequently readmitted on July 17 treated for acute hypoxic respiratory failure COPD exacerbation and pneumonia along with diastolic heart failure and acute blood loss anemia due to acute GI bleed status post EGD and colonoscopy with Dr. Hay on 07/21 which found minimal gastritis and diverticulosis. Patient's Eliquis was placed and continued on hold and she was stabilized, discharged to [facility] for subacute rehab. Patient developed chest pain management going on for 4 hours, she has weakness and difficulty breathing. Chest pain was on the left side when into her left arm and constant. EKG was atrial fibrillation/flutter heart rate of 107, ST depression in lateral leads. Chest x-ray persistent but improved makes infiltrates mid and lower lung zones bilaterally. WBC 10.3, hemoglobin 9.5, platelet count 169. Sodium 134, potassium 3.4, chloride 90, CO2 37, BUN 16 creatinine 0.77. Blood sugar 210. Troponin 0.031, 0.058, 0.070. Coronavirus PCR not detected. Patient was admitted to the cardiac stepdown unit and cardiology consult was requested. 07/30: Patient is seen today on the CSD unit. She denies having any chest pain and did not have any through the night. She slept well for a few hours last night. Patient has less lower extremity edema and weeping is improved. She has not had a bowel movement today and has not noticed any blood in her stools lately. She is complaining of feeling that something is stuck in the back of her throat but is swallowing okay. She is scheduled for modified barium swallow today with speech therapy. Patient has converted to sinus rhythm. She's been afebrile, heart rate is in the 60s, blood pressure 128/52, pulse ox 99% on 2 L. Repeat blood work reveals hemoglobin of 8.4, platelet count 149. Sodium 134, potassium 3.1, chloride 94, CO2 38, creatinine 0.77 and BUN 15. Blood sugars have been running between 129 and 210. Patient plans to return to [facility] to complete course of subacute rehab. PT and OT are also following. Cardiology will be seeing the patient today. 07/31: Patient was seen by cardiology yesterday and Imdur increased to 30 mg daily. Patient remains in a sinus rhythm. She underwent a modified barium swallow yesterday that showed moderate cricopharyngeal muscle hypertrophy speech therapy is recommended turning her head right or left when she is swallowing to allow the CP muscle to relax. Patient states all night she had difficulty sleeping because she felt like there was something in the back of her throat. She is complaining of some difficulty breathing that seems to be chronic no worsening today and she denies any chest pain. Discussed discharge planning and she does not want to return to [facility] and consult with Dr. Joyce for inpatient rehab has been added. Backup plan will be for [facility]. DISCHARGE DIAGNOSES 1. Acute chest pain most likely unstable angina, possibly related to atrial fibrillation. 2. Chronic Hypoxemic respiratory failure due to COPD with possible gram negative pneumonia along with chronic diastolic heart failure. 3. Recent GI bleed status post EGD and colonoscopy on last admission. 4. Chronic persistent atrial fibrillation. 5. Prior history of COVID-19 pneumonia. 6. Hypertension and hypertensive cardiovascular disease. 7. Hyperlipidemia. 8. Chronic diastolic heart failure. 9. GERD. 10. CAD. 11. Diabetes mellitus type 2. 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 DISCHARGE PLAN Subacute rehab at [facility] Greater than 35 minutes was utilized and coordinating patient's discharge. Impression and plan of care have been directed as dictated by the signing physician. Noelle Gilbert nurse practitioner acting as scribe for signing physician. Patient Condition at Discharge: Stable Plan - Discharge Summary Discharge Rx Participant: No New Discharge Prescriptions: New Potassium Chloride ER [K-Dur 20] 20 meq PO BID tablet Isosorbide Mononitrate ER [Imdur] 30 mg PO DAILY #90 tab Continue Omeprazole 20 mg PO DAILY@0600 Digoxin [Digitek] 62.5 mcg PO MOTUWETHFRSA Atorvastatin [Lipitor] 20 mg PO HS Albuterol Inhaler [Ventolin Hfa Inhaler] 1 puff INHALATION RT-QID PRN PRN Reason: Shortness Of Breath Calcium Carbonate [Calcium] 600 mg PO DAILY Melatonin 5 mg PO HS Dapagliflozin Propanediol [Farxiga] 5 mg PO DAILY metFORMIN HCL [Glucophage] 1,000 mg PO DAILY@1700 Budesonide-Formot 160-4.5 Mcg [Symbicort 160-4.5 Mcg Inhaler] 2 puff INHALATION RT-BID #1 puff Ascorbic Acid [Vitamin C] 500 mg PO BID tab Cholecalciferol [Vitamin D3 (25 Mcg = 1000 Iu)] 50 mcg PO DAILY tablet Metoprolol Tartrate [Lopressor] 100 mg PO BID Ipratropium-Albuterol Nebulize [Duoneb 0.5 mg-3 mg/3 ml Soln] 3 ml INHALATION RT-QID ml Acetaminophen Tab [Tylenol] 650 mg PO Q4H PRN PRN Reason: general discomfort Apixaban [Eliquis] 2.5 mg PO BID Diltiazem HCl [Cardizem CD] 360 mg PO DAILY Amoxicillin/Potassium Clav [Augmentin 875-125 Tablet] 1 tab PO BID 3 Days #14 tab Magnesium Oxide [Mag-Ox] 400 mg PO DAILY Cyanocobalamin (Vitamin B-12) [Vitamin B-12] 1,000 mcg PO DAILY predniSONE 10 mg PO DAILY #0 Collagenase [Santyl Ointment] 1 applic TOPICAL HS Furosemide [Lasix] 40 mg PO BID@0600,1400 Alendronate Sodium [Fosamax] 70 mg PO MO@0600 Discontinued Isosorbide Mononitrate ER [Imdur] 15 mg PO DAILY Potassium Chloride [Potassium Chloride ER] 10 meq PO BID@0900,1700 Discharge Medication List Albuterol Inhaler [Ventolin Hfa Inhaler] 1 puff INHALATION RT-QID PRN 06/16/20 [History] Atorvastatin [Lipitor] 20 mg PO HS 06/16/20 [History] Digoxin [Digitek] 62.5 mcg PO MOTUWETHFRSA 06/16/20 [History] Omeprazole 20 mg PO DAILY@0600 06/16/20 [History] Calcium Carbonate [Calcium] 600 mg PO DAILY 01/21/21 [History] Cyanocobalamin (Vitamin B-12) [Vitamin B-12] 1,000 mcg PO DAILY 01/21/21 [History] Dapagliflozin Propanediol [Farxiga] 5 mg PO DAILY 01/21/21 [History] Magnesium Oxide [Mag-Ox] 400 mg PO DAILY 01/21/21 [History] Melatonin 5 mg PO HS 01/21/21 [History] metFORMIN HCL [Glucophage] 1,000 mg PO DAILY@1700 01/21/21 [History] Budesonide-Formot 160-4.5 Mcg [Symbicort 160-4.5 Mcg Inhaler] 2 puff INHALATION RT-BID #1 puff 01/24/21 [Rx] Ascorbic Acid [Vitamin C] 500 mg PO BID tab 05/01/21 [Rx] Cholecalciferol [Vitamin D3 (25 Mcg = 1000 Iu)] 50 mcg PO DAILY tablet 05/01/21 [Rx] predniSONE 10 mg PO DAILY #0 05/01/21 [Rx] Metoprolol Tartrate [Lopressor] 100 mg PO BID 07/10/21 [History] Ipratropium-Albuterol Nebulize [Duoneb 0.5 mg-3 mg/3 ml Soln] 3 ml INHALATION RT-QID ml 07/24/21 [Rx] Acetaminophen Tab [Tylenol] 650 mg PO Q4H PRN 07/29/21 [History] Alendronate Sodium [Fosamax] 70 mg PO MO@0600 07/29/21 [History] Apixaban [Eliquis] 2.5 mg PO BID 07/29/21 [History] Collagenase [Santyl Ointment] 1 applic TOPICAL HS 07/29/21 [History] Diltiazem HCl [Cardizem CD] 360 mg PO DAILY 07/29/21 [History] Furosemide [Lasix] 40 mg PO BID@0600,1400 07/29/21 [History] Amoxicillin/Potassium Clav [Augmentin 875-125 Tablet] 1 tab PO BID 3 Days #14 tab 01/28/22 [Rx] Isosorbide Mononitrate ER [Imdur] 30 mg PO DAILY #90 tab 07/31/21 [Rx] Potassium Chloride ER [K-Dur 20] 20 meq PO BID tablet 07/31/21 [Rx] Follow up Appointment(s)/Referral(s): Phoenix Gutiérrez MD [Primary Care Provider] - 1 Week (at rehab ) Josh Pina MD [Family Provider] - 1 Week Discharge Disposition: TRANSFER TO SNF/ECF
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
[2021-07-31 11:46] LABS: Glucose,Whole Blood 140 mg/dL (75-99)
[2021-07-31 12:01] VITALS: BP 110/70; RESP 17
[2021-07-31 12:15] VITALS: PULSE 64
--- NOTE | 2021-07-31 12:30 | P.PN ---
Subjective Progress Note Date: 07/31/21 HISTORY OF PRESENT ILLNESS: This is a 89-year-old female with a past medical history significant for chronic persistent atrial fibrillation, chronic hypoxic respiratory failure with home O2, diastolic congestive heart failure, COPD, hypertension, sick sinus syndrome with dual-chamber pacemaker in 2018, and former nicotine dependence. Patient was recently hospitalized secondary to COPD and lower GI bleed. Patient underwent endoscopy and her Eliquis was temporarily held. Patient follows in the office with Dr. Pina. We have been asked to see the patient in consultation for chest pain. Patient examined at the bedside. Patient states she came to the hospital because she was feeling very weak. She also reports having some left sided chest pain that went into her left arm. She reports it was pretty constant for most of the day yesterday. EKG reveals atrial fibrillation/flutter with a heart rate of 107. ST depression in lateral leads. Chest xray persistent but improved mixed infiltrates mid and lower lung zones bilaterally. Laboratory data: WBC 6.5. Hemoglobin 8.4. Platelet count 149. Sodium 134. Potassium 3.1. BUN 15. Creatinine 0.77. Troponin 0.031. 0.058. 0.070. Current home cardiac medications include Cardizem 360 mg daily, digoxin 62.5 g Tuesday to see Tuesday, Imdur 15 g daily, Lipitor 20 mg daily, Eliquis 2.5 mg twice a day, Lasix 40 mg twice a day, metoprolol 100 mg twice a day Most recent echocardiogram obtained in July 2021 revealed ejection fraction 55-60%, mild aortic regurgitation, moderate aortic stenosis, mild mitral regurgitation, mild tricuspid regurgitation, and mild pulmonary hypertension Patient underwent Lexiscan stress test in 2019 which was negative for ischemia 07/31/2021 Patient examined this morning at the bedside. Patient denies chest pain or pressure. She denies shortness of breath. Patient's vital signs are stable. PHYSICAL EXAM: VITAL SIGNS: Reviewed. GENERAL: Well-developed in no acute distress. HEENT: Head is normocephalic. Pupils are equal, round. Sclerae anicteric. Mucous membranes of the mouth are moist. Neck supple. No JVD or thyromegaly LUNGS: Respirations even and unlabored. Lungs essentially clear to auscultation bilaterally. HEART: Irregular rate and rhythm. S1 and S2 heard. Systolic murmur noted. ABDOMEN: Soft. Nondistended. Nontender. EXTREMITIES: Normal range of motion. No clubbing or cyanosis. Peripheral pul ses intact. Trace bilateral lower extremity edema NEUROLOGIC: Awake and alert. Oriented x 3. ASSESSMENT: Chest pain, atypical Abnormal troponins, may be secondary to type II [place] due to oxygen supply and demand mismatch Chronic persistent atrial fibrillation Chronic hypoxic respiratory failure with home O2 Chronic diastolic heart failure COPD Hypertension Sick sinus syndrome with dual chamber pacemaker Aortic stenosis PLAN: Continue current cardiac medications No further inpatient recommendations from a cardiac standpoint We will sign off. Please reconsult if needed. Nurse practitioner note has been reviewed by physician. Signing provider agrees with the documented findings, assessment, and plan of care. Objective - Vital Signs Vital signs: Vital Signs Temp 98.1 F 07/31/21 08:00 Pulse 64 07/31/21 12:24 Resp 17 07/31/21 12:00 BP 110/70 07/31/21 12:00 Pulse Ox 100 07/31/21 12:00 Intake & Output 07/30/21 07/31/21 07/31/21 18:59 06:59 18:59 Intake Total 420 560 Balance 420 560 Intake: Oral 420 560 Other: Voiding Method Toilet Toilet Toilet # Voids 1 1 0 # Bowel Movements 1 0 - Labs CBC & Chem 7: 07/30/21 06:02 07/31/21 06:54 Labs: Abnormal Lab Results - Last 24 Hours (Table) 07/30/21 07/30/21 07/31/21 Range/Units 16:50 20:09 05:50 Sodium (137-145) mmol/L Chloride (98-107) mmol/L Carbon Dioxide (22-30) mmol/L Creatinine (0.52-1.04) mg/dL Glucose (74-99) mg/dL POC Glucose (mg/dL) 252 H 196 H 111 H (75-99) mg/dL 07/31/21 07/31/21 Range/Units 06:54 11:44 Sodium 133 L (137-145) mmol/L Chloride 95 L (98-107) mmol/L Carbon Dioxide 37 H (22-30) mmol/L Creatinine 1.13 H (0.52-1.04) mg/dL Glucose 107 H (74-99) mg/dL POC Glucose (mg/dL) 140 H (75-99) mg/dL
--- NOTE | 2021-08-03 11:38 | CDI ---
Documentation Clarification Form Date: 08/03/21 From: Niki Yeager Admit Date: 07/29/2021 11:48:00 AM Patient Name: Zehra Perez Visit Number: [id number] Discharge Date: 07/31/2021 12:37:00 PM ATTENTION: The Clinical Documentation Specialists (CDI) and [facility] Coding Staff appreciate your assistance in clarifying documentation. Please respond to the clarification below the line at the bottom and electronically sign. The CDI & [facility] Coding staff will review the response and follow-up if needed. Please note: Queries are made part of the Legal Health Record. If you have any questions, please contact the author of this message via ITS. Dr. Josh Pina, Atrial Flutter is documented in the H&P, your consult, PNs & DS. Additional clarification regarding the type of Atrial Flutter is requested. History/Risk factors: chronic persistent atrial fibrillation, chronic hypoxic respiratory failure, home O2, COPD, HTN, SSS w pacemaker, hx of smoking. Clinical Indicators: Atypical chest pain, abnormal troponins, may be secondary to type II [place]. 08/29 EKG/telemetry: atrial flutter with variable AV block, marked ST abnormality, possible subendocardial injury, Vent rat 170bpm, QRS 96, QT/QTc 368/494 Treatment: IV Cardizem 2.6 mg IVP, Please clarify the type of Atrial Flutter, if known: [ x] Typical/Type I [ ] Atypical/Type II [ ] Other, please specify [ ] Unable to determine MTDD
== END 2021-07-31 12:37 | DRG 302 ==
LOC: EC 10:03 → 4SSUR 11:48 → 3SCARD 16:16
PROVIDERS: ADMIT Internal Medicine; ATTEND Internal Medicine
DX: I25.110 Atherosclerotic heart disease of native coronary artery with unstable angina pectoris (principal); J15.6 Pneumonia due to other Gram-negative bacteria; J96.11 Chronic respiratory failure with hypoxia; I48.19 Other persistent atrial fibrillation; J44.1 Chronic obstructive pulmonary disease with (acute) exacerbation; I48.3 Typical atrial flutter; I50.32 Chronic diastolic (congestive) heart failure; I27.20 Pulmonary hypertension, unspecified; I49.5 Sick sinus syndrome; I11.0 Hypertensive heart disease with heart failure; E11.9 Type 2 diabetes mellitus without complications; Z20.822 Contact with and (suspected) exposure to COVID-19; E87.6 Hypokalemia; I08.3 Combined rheumatic disorders of mitral, aortic and tricuspid valves; E78.5 Hyperlipidemia, unspecified; G47.9 Sleep disorder, unspecified; H35.30 Unspecified macular degeneration; M81.0 Age-related osteoporosis without current pathological fracture; K21.9 Gastro-esophageal reflux disease without esophagitis; T38.0X5A Adverse effect of glucocorticoids and synthetic analogues, initial encounter; M19.90 Unspecified osteoarthritis, unspecified site; Z99.81 Dependence on supplemental oxygen; Z79.83 Long term (current) use of bisphosphonates; Z79.01 Long term (current) use of anticoagulants; Z79.51 Long term (current) use of inhaled steroids; Z79.84 Long term (current) use of oral hypoglycemic drugs; Z79.52 Long term (current) use of systemic steroids; Z79.899 Other long term (current) drug therapy; Z86.16 Personal history of COVID-19; Z87.01 Personal history of pneumonia (recurrent); Z85.828 Personal history of other malignant neoplasm of skin; Z87.19 Personal history of other diseases of the digestive system; Z95.0 Presence of cardiac pacemaker; Z98.42 Cataract extraction status, left eye; Z98.41 Cataract extraction status, right eye; Z96.1 Presence of intraocular lens; Z90.89 Acquired absence of other organs; Z87.891 Personal history of nicotine dependence; Z98.890 Other specified postprocedural states; Z88.2 Allergy status to sulfonamides; Z91.013 Allergy to seafood; Z80.0 Family history of malignant neoplasm of digestive organs; Z82.49 Family history of ischemic heart disease and other diseases of the circulatory system
CPT/HCPCS: 36415; 71046; 74230; 80048; 80053; 80061; 83735; 84132; 84484; 85025; 85027; 85610; 85730; 87635; 93005; 94640; 94760; 96374; 99285